=== PATIENT | female | born 2000 | race Caucasian/White ===

== ENCOUNTER 2023-02-12 23:39 | Emergency (ER) | payer BC, SELFPAY ==
[2023-02-12 23:42] VITALS: BP 150/100; PULSE 87; RESP 18; TEMP 36.4; O2SAT 100; BMI 25.8
[2023-02-12 23:44] VITALS: O2SAT 100
[2023-02-12 23:45] VITALS: BP 179/106; O2SAT 100
[2023-02-12 23:47] VITALS: BP 161/124; PULSE 82; RESP 16; O2SAT 100
[2023-02-12 23:50] VITALS: PULSE 73; RESP 24; O2SAT 100
[2023-02-13] VITALS (16 sets, daily range): BP systolic 127–138; BP diastolic 70–89; PULSE 60–85; RESP 10–26; O2SAT 100
--- NOTE | 2023-02-13 00:10 | ECG_ITS ---
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
--- NOTE | 2023-02-13 00:10 | CT_ITS ---
[address] [address] Patient Name: JAMES STEEL MRN: [id number] date: 2000 Sex: F Assigned Patient Location: ER Current Patient Location: ER Accession/Order Number: [id number] Exam Date: 02/13/2023 00:30 Report Date: 02/13/2023 01:47 At the request of: SHANTELL MARKER Procedure: CT angio chest EXAMINATION:CT angio chest INDICATION:CP COMPARISON:06/01/2020 TECHNIQUE:Thin section transaxial slices were acquired through the chest with intravenous contrast per PE protocol. Coronal and sagittal reconstructed images were reviewed. FINDINGS: PULMONARY ARTERIES: There is excellent opacification of the pulmonary vasculature. No suspicious pulmonary arterial filling defects are identified to suggest pulmonary embolus. LUNGS: Lungs are clear. PLEURAL CAVITY: No pleural effusion. MEDIASTINUM: Trachea and central airways are patent. HEART: The heart is unremarkable.There is no evidence of right heart strain. VASCULAR:There is no aneurysm or dissection of the thoracic aorta. LYMPH NODES:No suspicious lymphadenopathy. CHEST WALL/AXILLA: Chest wall and axilla are unremarkable. BONES: Osseous structures are unremarkable. VISUALIZED UPPER ABDOMEN: Upper abdominal structures are unremarkable. CT/CT angio chest IMPRESSION: 1. No evidence of pulmonary embolus. Electronically authenticated by: TAVIA TRIVEDI Date: 02/13/2023 01:47
--- NOTE | 2023-02-13 00:11 | PC.NURSE ---
pt presents to ED because pt states for the last couple months has been having chest pressure and palpitations. over the last 2 weeks symptoms have gotten worse and worse when she is laying down. pt states she was here a couple weeks ago and had testing done. saw dr. gonzales and had holter monitor done but lost results. was told to f/u with [facility] but hasn't been able to get in.
[2023-02-13] MEDS: KETOROLAC TROMETHAMINE 30 MG/ML VIAL IVP (00:25)
[2023-02-13] MEDS: 0.9 % SODIUM CHLORIDE 1,000 ML 1000 ML IV (00:25)
[2023-02-13 00:42] LABS: Basophils Absolute Auto 0.1 10^3/uL (0.0-0.1); Basophils Percent Auto 0.8 % (0.2-2.0); Eosinophils Absolute Auto 0.1 10^3/uL (0.0-0.7); Hematocrit 38.7 % (36.0-48.0); Hemoglobin 13.2 g/dL (12.0-16.0); Immature Granulocytes Abs Auto 0.01 10^3/uL (0.00-0.03); Immature Granulocytes Pct Auto 0.1 % (0.0-0.5); Lymphocytes Absolute Auto 3.6 10^3/uL (1.2-3.8); Lymphocytes Percent Auto 41.5 % (20.5-60.0); Mean Corpuscular HGB Conc 34.1 g/dL (29.9-35.2); Mean Corpuscular Hemoglobin 30.4 pg (26.7-34.0); Mean Corpuscular Volume 89.2 fL (81.0-99.0); Mean Platelet Volume 11.2 fL (9.5-13.5); Monocytes Absolute Auto 0.6 10^3/uL (0.3-0.8); Monocytes Percent Auto 7.1 % (1.7-12.0); Neutrophils Absolute Auto 4.3 10^3/uL (1.4-6.5); Neutrophils Percent Auto 49.5 % (43.0-75.0); Platelet Count 317 10^3/uL (150-450); Red Blood Count 4.34 10^6/uL (4.20-5.40); Red Cell Distribution Width 12.5 % (11.0-15.0); White Blood Count 8.7 10^3/uL (4.0-11.0)
[2023-02-13 00:48] LABS: Erythrocyte Sedimentation Rate 7 mm/hr (<=20)
[2023-02-13 00:57] LABS: HCG Qualitative NEGATIVE (NEGATIVE)
[2023-02-13 01:00] LABS: D Dimer 0.21 mg/L FEU (<=0.59)
[2023-02-13 01:09] LABS: Alanine Aminotransferase 14 U/L (14-59); Albumin Globulin Ratio 1.2; Albumin Level 4.3 g/dL (3.4-5.0); Alkaline Phosphatase 66 U/L (46-116); Anion Gap 14.7; Aspartate Amino Transferase 14 U/L (15-37); BUN Creatinine Ratio 10.2; Bilirubin Total 0.4 mg/dL (0.2-1.0); Carbon Dioxide 25.9 mmol/L (21.0-32.0); Chloride 104 mmol/L (98-107); Estimated GFR (African America >60 (>=60); Estimated GFR (Non-African Ame >60 (>=60); Globulin 3.6 g/dL; Glucose 81 mg/dL (74-106); Potassium 3.6 mmol/L (3.5-5.1); Sodium 141 mmol/L (136-145); Thyroid Stimulating Hormone 5.742 uIU/mL (0.358-3.740); Total Protein 7.9 g/dL (6.4-8.2); Troponin I High Sensitivity 7.1 pg/mL (4.0-51.3)
[2023-02-13 01:10] LABS: C Reactive Protein <1.0 mg/dL (<=1.0)
--- NOTE | 2023-02-13 02:43 | ED.CHESTPAI1 ---
HPI - Chest Pain General Chief Complaint: Chest Pain Stated Complaint: CHEST PAIN Time Seen by Provider: 02/12/23 23:53 Source: patient Mode of arrival: walk-in Limitations: no limitations History of Present Illness HPI narrative: This 22-year-old female presents for evaluation of midsternal chest pain. This patient was seen and evaluated by myself in November when she presented for chest pain and was having episodes of positional tachycardia. The patient states at that time she followed up with Dr. Tsang and he prescribed her medication for her hypothyroidism and they discussed her cardiac issues. She states that he told her that he was going to refer her to cardiology but despite her calling the cardiology office several times and trying to reach them and having her mother call as well she has not been able to procure an appointment with cardiology. At the time I saw her in November she was having episodes where her pulse would be normal while lying and then become tachycardic with standing. This appears to have improved. 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 She now is having episodes of chest pain at night with radiation into her left arm and cannot sleep because she is afraid she will not wake up. She states that her grandfather had an episode when her mother was only 3 when he went to bed and . She does not know the cardiac issue that he suffered from. The patient does not smoke. She is not on control. She denies any abdominal pain or back pain. She has not had a fever. She did not fill the prescription for the Synthroid that was prescribed to her by Dr. Tsang after speaking to a nurse who told her that she may be able to treat her hypothyroidism with a holistic approach. Related Data Home Medications Medication Instructions Recorded Confirmed No Known Home Medications 02/12/23 02/12/23 Allergies Allergy/AdvReac Type Severity Reaction Status Date / Time No Known Drug Allergies Allergy Verified 02/12/23 23:49 Review of Systems ROS Status of ROS 10 or more systems reviewed and unremarkable except as noted in history and below [facility] PFS Social History Smoking status: Never smoker Exam Narrative Exam Narrative: Nurses note and vital signs reviewed and patient is not hypoxic. General: The patient appears well and in no apparent distress, She appears mildly anxious but less anxious when I saw her in November Skin: Warm, dry, no pallor noted. There is no rash noted. Head: Normocephalic, atraumatic Eye: Normal conjunctiva, no drainage, EOMI. PERRL Ears, Nose, Mouth, and Throat: oral mucosa is moist. Neck: supple, no appreciable thyromegaly Cardiovascular: Regular Rate and Rhythm SiS2, no murmur, rubs or gallops, pulses are brisk and equal bilaterally Respiratory: Patient is in no distress, no accessory muscle use, lungs are clear to auscultation, no wheezing, rales or rhonchi Back: non-tender, no CVA tenderness bilaterally to percussion. GI: Normal bowel sounds, no tenderness to palpation, no masses appreciated. No rebound, guarding, or rigidity noted. Musculoskeletal: The patient has no evidence of calf tenderness, no pitting edema, symmetrical pulses noted bilaterally Neurological: A&O x4, normal speech Psychiatric: Cooperative, tearful at time, appears frustrated Constitutional Vital Signs, click to edit/add: Last Vital Signs Temp 97.6 F 02/12/23 23:42 Pulse 62 02/13/23 02:04 Resp 20 02/13/23 02:04 BP 127/70 02/13/23 02:04 Pulse Ox 100 02/13/23 00:20 O2 Del Method Room Air 02/12/23 23:42 Course Vital Signs Vital signs: Vital Signs Temperature 97.6 F 02/12/23 23:42 Pulse Rate 87 02/12/23 23:42 Respiratory Rate 18 02/12/23 23:42 Blood Pressure 150/100 H 02/12/23 23:42 Pulse Oximetry 100 02/12/23 23:42 Oxygen Delivery Method Room Air 02/12/23 23:42 Temperature 97.6 F 02/12/23 23:42 Pulse Rate 62 02/13/23 02:04 Respiratory Rate 20 02/13/23 02:04 Blood Pressure 127/70 02/13/23 02:04 Pulse Oximetry 100 02/13/23 00:20 Oxygen Delivery Method Room Air 02/12/23 23:42 MDM - Chest Pain MDM Narrative Medical decision making narrative: This 22-year-old female presents for evaluation of midsternal chest pain, is nonradiating. She is not short of breath dizzy or diaphoretic. She does not have a history of coronary artery disease. She does not smoke and she is not on control. The patient was seen by myself several months ago and was having episodes of tachycardia that was positional. The patient stated that she had had a hand pattern marker in place and was supposed to have an echocardiogram but never got the results of the Holter monitor. She also never was referred for the ultrasound. She was referred to her family physician after she had a negative cardiac workup. It was noted at that time that she had an elevated thyroid-stimulating hormone. She did follow up with her family physician but did not fill the prescription for the Synthroid that had been prescribed for her. She has since started a new job and has been doing well at her new job but at night when she tries to lay down and starts having chest pain and what sounds like issues with sleeping and possibly anxiety. She states she has tried to contact cardiology for an appointment but could not get a hold of them. She states her mother has even called them and the phone rings and rings and nobody ever picks it up. She did have postural tachycardia when she was here in the past. Today was a sinus rhythm with a sinus arrhythmia at 77 bpm and an RSR in lead V1 and V2 consistent with right ventricular conduction delay according to the EKG. Patient was not noted to be tachycardic today. I did have her stand up and she did not have any episodes of tachycardia. Orthostatic vital signs are normal. An IV was placed and she was medicated with IV fluids and Toradol. Cardiac workup including troponin and d-dimer was ordered and is reviewed. She has a normal CBC with differential. Her test was negative. She has normal electrolytes. She has a normal troponin and normal d-dimer. Her thyroid-stimulating hormone is again noted to be elevated although this time it is lower than it was in November. Inflammatory markers were also normal. In light of her ongoing chest pain which is not explained by any laboratory analysis I ordered a CT of her chest to rule out any structural abnormality or other findings that may be contributing to her pain. The CTA of her chest was negative for any acute findings. The results of all of her labs including the elevated thyroid-stimulating hormone and CT of the chest were discussed with the patient. I assured her that she is not dying. I did place a call to the cardiology office and asked them to call her for an outpatient appointment. I did explain this to her. She verbalizes understanding. She feels comfortable going home and was discharged home in stable condition. She has an appointment with her PCP on Thursday. I encouraged her to keep this appointment and discuss her hypothyroidism as well as ongoing cardiac issues. She did reveal to me that she is afraid to go to sleep at night because her maternal grandfather in his sleep when her mother was only 3 years old and she is concerned that she has a similar cardiac abnormality. Lab Data Attestation: I reviewed the patient's lab results. (TSH is elevated, remainder of labs are normal including troponin and d dimer) Labs: Lab Results 02/12/23 Range/Units 23:55 WBC 8.7 (4.0-11.0) 10^3/uL RBC 4.34 (4.20-5.40) 10^6/uL Hgb 13.2 (12.0-16.0) g/dL Hct 38.7 (36.0-48.0) % MCV 89.2 (81.0-99.0) fL MCH 30.4 (26.7-34.0) pg MCHC 34.1 (29.9-35.2) g/dL RDW 12.5 (11.0-15.0) % Plt Count 317 (150-450) 10^3/uL MPV 11.2 (9.5-13.5) fL Neut % (Auto) 49.5 (43.0-75.0) % Lymph % (Auto) 41.5 (20.5-60.0) % Craig % (Auto) 7.1 (1.7-12.0) % Eos % (Auto) 1.0 (0.9-7.0) % Baso % (Auto) 0.8 (0.2-2.0) % Neut # (Auto) 4.3 (1.4-6.5) 10^3/uL Lymph # (Auto) 3.6 (1.2-3.8) 10^3/uL Craig # (Auto) 0.6 (0.3-0.8) 10^3/uL Eos # (Auto) 0.1 (0.0-0.7) 10^3/uL Baso # (Auto) 0.1 (0.0-0.1) 10^3/uL Abs Immat Gran (auto) 0.01 (0.00-0.03) 10^3/uL Imm/Tot Granulo (auto) 0.1 (0.0-0.5) % ESR 7 (<=20) mm/hr D-Dimer 0.21 (<=0.59) mg/L FEU Sodium 141 (136-145) mmol/L Potassium 3.6 (3.5-5.1) mmol/L Chloride 104 (98-107) mmol/L Carbon Dioxide 25.9 (21.0-32.0) mmol/L Anion Gap 14.7 BUN 10.0 (7.0-18.0) mg/dL Creatinine 0.98 (0.55-1.02) mg/dL Est GFR ( Amer) >60 (>=60) Est GFR (Non-Af Amer) >60 (>=60) BUN/Creatinine Ratio 10.2 Glucose 81 (74-106) mg/dL Calcium 9.0 (8.5-10.1) mg/dL Total Bilirubin 0.4 (0.2-1.0) mg/dL AST 14 L (15-37) U/L ALT 14 (14-59) U/L Alkaline Phosphatase 66 (46-116) U/L Troponin I High Sens 7.1 (4.0-51.3) pg/mL C-Reactive Protein <1.0 (<=1.0) mg/dL Total Protein 7.9 (6.4-8.2) g/dL Albumin 4.3 (3.4-5.0) g/dL Globulin 3.6 g/dL Albumin/Globulin Ratio 1.2 TSH 5.742 H (0.358-3.740) uIU/mL Serum HCG, Qual Negative (NEGATIVE) ECG Data Attestation: I personally reviewed and interpreted this ECG as follows: (Sinus rhythm at 77 beats for minute, normal axis, RSR in lead V1 and V2, no acute ST segment elevation or T-wave inversion) Discharge Plan Discharge Chief Complaint: Chest Pain Clinical Impression: Hypothyroidism, Atypical chest pain Patient Disposition: Home, Self-Care Time of Disposition Decision: 02:34 Condition: Good Prescriptions / Home Meds: No Action No Known Home Medications Instructions: Hypothyroidism (ED), Noncardiac Chest Pain (ED) Stand Alone Forms: Portal Instructions Referrals: Fady Tsang MD [Primary Care Provider] - 1 week Discharge Date/Time: 02/13/23 02:57
== END 2023-02-13 02:57 | disposition home or self-care (01) ==
PROVIDERS: Emergency Provider Emergency Medicine; PCP Family Medicine
DX: R07.89 Other chest pain (principal); E03.9 Hypothyroidism, unspecified; Z79.899 Other long term (current) drug therapy
CPT/HCPCS: 36415; 71275; 80053; 84443; 84484; 84703; 85025; 85378; 85652; 86140; 93005; 96374; 99285; Q9967

== ENCOUNTER 2023-04-21 20:24 | Outpatient (REF) | payer BC, SELFPAY ==
[2023-04-27 14:08] LABS: Age Gdln ACOG Testing Note (.); IGP, rfx Aptima HPV ASCU Note (.)
== END 2023-04-21 20:25 | disposition home or self-care (01) ==
LOC: LAB 20:24
PROVIDERS: PCP Family Medicine; Visit Provider Obstetrics & Gynecology
DX: Z12.4 Encounter for screening for malignant neoplasm of cervix (principal)
CPT/HCPCS: G0145

== ENCOUNTER 2023-09-03 11:06 | Outpatient (OUT) | payer BC, SELFPAY ==
[2023-09-03 11:31] LABS: Basophils Absolute Auto 0.1 10^3/uL (0.0-0.1); Basophils Percent Auto 0.9 % (0.2-2.0); Eosinophils Percent Auto 0.4 % (0.9-7.0); Hematocrit 38.5 % (36.0-48.0); Hemoglobin 12.8 g/dL (12.0-16.0); Immature Granulocytes Abs Auto 0.01 10^3/uL (0.00-0.03); Immature Granulocytes Pct Auto 0.2 % (0.0-0.5); Lymphocytes Absolute Auto 0.7 10^3/uL (1.2-3.8); Lymphocytes Percent Auto 13.5 % (20.5-60.0); Mean Corpuscular HGB Conc 33.2 g/dL (29.9-35.2); Mean Corpuscular Volume 90.4 fL (81.0-99.0); Mean Platelet Volume 10.7 fL (9.5-13.5); Monocytes Absolute Auto 0.7 10^3/uL (0.3-0.8); Monocytes Percent Auto 12.7 % (1.7-12.0); Neutrophils Absolute Auto 3.8 10^3/uL (1.4-6.5); Neutrophils Percent Auto 72.3 % (43.0-75.0); Platelet Count 253 10^3/uL (150-450); Red Blood Count 4.26 10^6/uL (4.20-5.40); Red Cell Distribution Width 11.9 % (11.0-15.0); White Blood Count 5.3 10^3/uL (4.0-11.0)
[2023-09-03 12:41] LABS: Alanine Aminotransferase 19 U/L (14-59); Albumin Level 3.9 g/dL (3.4-5.0); Alkaline Phosphatase 64 U/L (46-116); Anion Gap 13.2; Aspartate Amino Transferase 15 U/L (15-37); BUN Creatinine Ratio 9.6; Bilirubin Total 0.4 mg/dL (0.2-1.0); Calcium 8.8 mg/dL (8.5-10.1); Carbon Dioxide 28.3 mmol/L (21.0-32.0); Chloride 103 mmol/L (98-107); Estimated GFR (African America >60 (>=60); Estimated GFR (Non-African Ame >60 (>=60); Free T3 2.63 pg/mL (2.18-3.98); Globulin 3.8 g/dL; Glucose 80 mg/dL (74-106); Potassium 3.5 mmol/L (3.5-5.1); Sodium 141 mmol/L (136-145); Thyroid Stimulating Hormone 1.563 uIU/mL (0.358-3.740); Total Protein 7.7 g/dL (6.4-8.2)
[2023-09-03 14:12] LABS: Estimated Average Glucose 91 mg/dL; Glycohemoglobin A1C 4.8 % (4.5-6.2)
[2023-09-03 17:16] LABS: Mono Screen NEGATIVE (NEGATIVE)
== END 2023-09-03 11:07 | disposition home or self-care (01) ==
LOC: LAB 11:09
PROVIDERS: PCP Family Medicine; Visit Provider Family Medicine
DX: R07.9 Chest pain, unspecified (principal); R53.83 Other fatigue; R73.09 Other abnormal glucose; D64.9 Anemia, unspecified; E55.9 Vitamin D deficiency, unspecified
CPT/HCPCS: 36415; 80053; 82306; 83036; 83540; 84436; 84443; 84481; 85025; 86308

== ENCOUNTER 2023-09-16 07:54 | Outpatient (OUT) | payer BC, SELFPAY ==
--- OUTSIDE RECORDS SUMMARY | 2023-09-16 07:57 | XMS_ITS | CCD ---
Author Name Unknown Address [address] [place] [address] [id number] [place] [address] Organization [facility] Care Team Providers Care Mottle Lay Up Operator Name Role Phone MARKER ., DR STINSON Admitting Unavailable MARKER ., DR STINSON Attending Unavailable MARKER ., DR STINSON Consulting Unavailable HOY ., DR LEE Primary Care Unavailable HOY ., DR LEE Attending Unavailable HOY ., DR LEE Consulting Unavailable HOY ., DR LEE Primary Care Unavailable HOY ., DR LEE Admitting Unavailable HOY ., DR LEE Primary Care Unavailable PAY ., DR TOLBERT Admitting Unavailable PAY ., DR TOLBERT Attending Unavailable PAY ., DR TOLBERT Consulting Unavailable HOY ., DR LEE Primary Care Unavailable JAYANT, DR BRAIN Starks Admitting Unavailable JAYANT, DR BRAIN Starks Attending Unavailable JAYANT, DR BRAIN Starks Consulting Unavailable JEFFREY BEGUM Consulting Unavailable Problems Active Problems Problem Classification Problem Date Documented Da te Episodic/Chronic Cardiac dysrhythmias (4 sources) Palpitations; Translations: [PALPITATIONS] Onset: 12-04-2022 Episodic Deficiency and other anemia (1 source) Anemia, unspecified; Translations: [ANEMIA UNSPECIFIED] Onset: 09-22-2022 Episodic Diabetes mellitus without complication (1 source) Other abnormal glucose; Translations: [OTHER ABNORMAL GLUCOSE] Onset: 09-22-2022 Episodic Mood disorders (1 source) Major depressive disorder, single episode, unspecified; Translations: [RAMONITA DEPRESS D/O SINGLE EPIS UNS] Onset: 05-26-2022 Chronic Nonspecific chest pain (4 sources) Chest pain, unspecified; Translations: [CHEST PAIN UNSPECIFIED] Onset: 09-18-2022 Episodic Other upper respiratory infections (1 source) Chronic sinusitis, unspecified; Translations: [CHRONIC SINUSITIS UNSPECIFIED] Onset: 05-26-2022 Chronic Past or Other Problems Problem Classification Problem Date Documented Da te Episodic/Chronic Abdominal pain (1 source) Left upper quadrant pain; Translations: [LEFT UPPER QUADRANT PAIN] Onset: 07-08-2022 Episodic Nausea and vomiting (4 sources) Nausea; Translations: [Nausea with vomiting, unspecified] Onset: 07-05-2022 Episodic Other nutritional; endocrine; and metabolic disorders (1 source) Abnormal weight loss; Translations: [ABNORMAL WEIGHT LOSS] Onset: 07-08-2022 Episodic Other upper respiratory disease (3 sources) Unspecified disorder of nose and nasal sinuses; Translations: [UNS DISORDER NOSE AND NASAL SINUSES] Onset: 05-23-2022 Episodic Results Test Name Value Interpretation Reference Range Facility CARDIAC BRAIN ADMITon 023 CK [Catalytic activity/Vol] 102 U/L Normal 26-192 [facility] Comment on above: Performed By: #### C BC #### [facility] [address] [place] [address] Dr. Michelle Cali CK.MB [Mass/Vol] 0.74 ng/mL Normal <=3.60 [facility] Comment on above: Performed By: #### C BC #### [facility] [address] [address] [address] Michelle Cali HSTROP 7.7 pg/mL Normal 4.0-51.[address] [facility] Comment on above: Result Comment: CUT- OFF POINTS HAVE BEEN ESTABLISHED BASED ON THE FOURTH UNIVERSAL DEFINITIONS OF MYOCARDIAL INFARCTION. THE UPPER REFERENCE LIMIT (URL) OF TROPONIN, DEFINED THE 99TH PERCENTILE OF cTnI DISTRIBUTION IN A REFERENCE POPULATION, HAS BEEN CONFIRMED THE DECISION THRESHOLD FOR NE DIAGNOSIS. Performed By: #### C BC #### [facility] [address] [address] [address] Michelle Cali SHAHNAZ 24 ng/mL Normal 9-[address] [facility] Comment on above: Performed By: #### C BC #### [facility] [address] [address] [address] Michelle Cali CBC AUTO DIFFon 12-04-2022 BASO # 0.1 103/ul Normal 0.0-0.1 [facility] Comment on above: Performed By: #### C BC #### [facility] [address] [address] [address] Michelle Cali Basophils/100 WBC (Bld) 0.9 % Normal 0.2-2.0 [facility] Comment on above: Performed By: #### C BC #### [facility] [address] [place] [address] Dr. Michelle Cali EO # 0.1 103/ul Normal 0.0-0.[address] [facility] Comment on above: Performed By: #### C BC #### [facility] [address] [place] [address] Dr. Michelle Cali Eosinophils/100 WBC (Bld) 0.6 % Critically low 0.9-7.0 [facility] Comment on above: Performed By: #### C BC #### [facility] [address] [place] [address] Dr. Michelle Cali Erythrocyte distribution width (RBC) [Ratio] 12.3 % Normal 11.0-15.0 [facility] Comment on above: Performed By: #### C BC #### [facility] [address] [place] [address] Dr. Michelle Cali Hematocrit (Bld) [Volume fraction] 40.3 % Normal 36.0-48.0 [facility] Comment on above: Performed By: #### C BC #### [facility] [address] [place] [address] Dr. Michelle Cali Hemoglobin (Bld) [Mass/Vol] 13.2 g/dL Normal 12.0-16.0 [facility] Comment on above: Performed By: #### C BC #### [facility] [address] [place] [address] Dr. Michelle Cali IG # 0.03 10e3/ul Normal 0.00-0.[address] [facility] Comment on above: Performed By: #### C BC #### [facility] [address] [place] [address] Dr. Michelle Cali IG % 0.3 % Normal 0.0-0.[address] [facility] Comment on above: Performed By: #### C BC #### [facility] [address] [place] [address] Dr. Michelle Cali LYMPH # 4.1 103/ul Critically high 1.2-3.8 The [facility] Comment on above: Performed By: #### C BC #### [facility] [address] [place] [address] Dr. Michelle Cali Lymphocytes/100 WBC (Bld) 39.9 % Normal 20.5-60.0 [facility] Comment on above: Performed By: #### C BC #### [facility] [address] [place] [address] Dr. Michelle Cali MANUAL DIFF REQ NO Normal The [facility] Comment on above: Performed By: #### C BC #### [facility] [address] [place] [address] Dr. Michelle Cali MCH (RBC) [Entitic mass] 29.8 pg Normal 26.7-34.0 [facility] Comment on above: Performed By: #### C BC #### [facility] [address] [place] [address] Dr. Michelle Cali MCHC (RBC) [Mass/Vol] 32.8 g/dL Normal 29.9-35.[address] [facility] Comment on above: Performed By: #### C BC #### [facility] [address] [place] [address] Dr. Michelle Cali MCV (RBC) [Entitic vol] 91.0 fL Normal 81.0-99.0 [facility] Comment on above: Performed By: #### C BC #### [facility] [address] [place] [address] Dr. Michelle Cali MONO # 0.5 103/ul Normal 0.3-0.[address] [facility] Comment on above: Performed By: #### C BC #### [facility] [address] [place] [address] Dr. Michelle Cali Monocytes/100 WBC (Bld) 5.2 % Normal 1.7-12.0 [facility] Comment on above: Performed By: #### C BC #### [facility] [address] [place] [address] Dr. Michelle Cali NEUT # 5.4 103/ul Normal 1.4-6.5 [facility] Comment on above: Performed By: #### C BC #### [facility] [address] [place] [address] Dr. Michelle Cali Neutrophils/100 WBC (Bld) 53.1 % Normal 43.0-75.0 [facility] Comment on above: Performed By: #### C BC #### [facility] [address] [place] [address] Dr. Michelle Cali Platelet mean volume (Bld) [Entitic vol] 10.6 fL Normal 9.5-13.5 [facility] Comment on above: Performed By: #### C BC #### [facility] [address] [place] [address] Dr. Michelle Cali PLT 310 103/ul Normal 150-[address] [facility] Comment on above: Performed By: #### C BC #### [facility] [address] [place] [address] Dr. Michelle Cali RBC 4.43 106/ul Normal 4.20-5.[address] [facility] Comment on above: Performed By: #### C BC #### [facility] [address] [place] [address] Dr. Michelle Cali WBC 10.2 103/ul Normal 4.0-11.[address] [facility] Comment on above: Performed By: #### C BC #### [facility] [address] [place] [address] Dr. Michelle Cali D-DIMERon 12-04-2022 D-DIMER 0.19 mg/L FEU Normal <=0.59 [facility] Comment on above: Performed By: #### C BC #### [facility] [address] [place] [address] Dr. Michelle Cali D-DIMER COMMENTS SEE BELOW Normal [facility] Comment on above: Result Comment: Incr eases in D-Dimer concentration observed with thromboembolic events can be variable due to localization, size, and age of the thrombus. Therefore, a thromboembolic event cannot be diagnosed with certainty on the basis of the reference range. D-Dimers may also be elevated for a variety of disorders including: advanced age, , coronary disease, cancer, liver disease, infection, inflammation, hematoma, DIC, trauma, post-surgery, diabetes, thrombolytic or anticoagulant therapy, stress, and generalized hospitalization. Performed By: #### C BC #### [facility] [address] [place] [address] Dr. Michelle Cali ER URINE PROFILEon 3 Bilirubin Ql (U) Negative Normal NEGATIVE [facility] Comment on above: Performed By: #### P REGU, ERUR #### [facility] [address] [place] [address] Dr. Michelle Cali Clarity (U) CLEAR Normal CLEAR [facility] Comment on above: Performed By: #### P REGU, ERUR #### [facility] [address] [place] [address] Dr. Michelle Cali Color (U) YELLOW Normal YELLOW [facility] Comment on above: Performed By: #### P REGU, ERUR #### [facility] [address] [place] [address] Dr. Michelle Cali ERUAHD A micrscopic examination will be performed if indicated. Normal The [facility] Comment on above: Performed By: #### P REGU, ERUR #### [facility] [address] [place] [address] Dr. Michelle Cali Glucose Ql (U) Negative Normal NEGATIVE [facility] Comment on above: Performed By: #### P REGU, ERUR #### [facility] [address] [place] [address] Dr. Michelle Cali Hemoglobin Ql (U) Negative Normal NEGATIVE [facility] Comment on above: Performed By: #### P REGU, ERUR #### [facility] [address] [place] [address] Dr. Michelle Cali Ketones Ql (U) Negative Normal NEGATIVE [facility] Comment on above: Performed By: #### P REGU, ERUR #### [facility] [address] [place] [address] Dr. Michelle Cali LEUKOCYTES Negative Normal NEGATIVE [facility] Comment on above: Performed By: #### P REGU, ERUR #### [facility] [address] [address] [address] Michelle Cali Nitrite Ql (U) Negative Normal NEGATIVE [facility] Comment on above: Performed By: #### P REGU, ERUR #### [facility] [address] [address] [address] Michelle Cali pH (U) 6.0 [pH] Normal 5-9 [facility] Comment on above: Performed By: #### P REGU, ERUR #### [facility] [address] [address] [address] Michelle Cali SPEC GRAVITY >=1.030 Abnormal 1.005-<=1.025 [facility] Comment on above: Performed By: #### P REGU, ERUR #### [facility] [address] [place] [address] Dr. Michelle Cali UA PROTEIN TRACE Normal NEGATIVE/ TRACE [facility] Comment on above: Performed By: #### P REGU, ERUR #### [facility] [address] [address] [address] Michelle Cali UR MICRO IND NOT INDICATED Normal The [facility] Comment on above: Performed By: #### P REGU, ERUR #### [facility] [address] [place] [address] Dr. Michelle Cali Urobilinogen Qn (U) 0.2 {Kalyan'U}/dL Normal 0.2 - 1. 0 [facility] Comment on above: Performed By: #### P REGU, ERUR #### [facility] [address] [address] [address] Michelle Cali URon 12-04-2022 , QUAL Negative Normal NEGATIVE The [facility] Comment on above: Performed By: #### P REGU, ERUR #### [facility] [address] [place] [address] Dr. Michelle Cali PROF 14(COMP METB)on 023 Albumin [Mass/Vol] 3.9 g/dL Normal 3.4-5.0 [facility] Comment on above: Performed By: #### C BC #### [facility] [address] [address] [address] Michelle Cali Albumin/Globulin [Mass ratio] 1.0 {ratio} Normal [facility] Comment on above: Performed By: #### C BC #### [facility] [address] [address] [address] Michelle Cali ALP [Catalytic activity/Vol] 69 U/L Normal 46-116 [facility] Comment on above: Performed By: #### C BC #### [facility] [address] [address] [address] Michelle Cali ALT [Catalytic activity/Vol] 13 U/L Critically low 14-59 [facility] Comment on above: Performed By: #### C BC #### [facility] [address] [address] [address] Michelle Cali Anion gap [Moles/Vol] 13.6 mmol/L Normal [facility] Comment on above: Performed By: #### C BC #### [facility] [address] [address] [address] Michelle Cali AST [Catalytic activity/Vol] 11 U/L Critically low 15-37 [facility] Comment on above: Performed By: #### C BC #### [facility] [address] [address] [address] Michelle Cali Bilirubin [Mass/Vol] 0.3 mg/dL Normal 0.2-1.0 [facility] Comment on above: Performed By: #### C BC #### [facility] [address] [address] [address] Michelle Cali Calcium [Mass/Vol] 9.0 mg/dL Normal 8.5-10.1 [facility] Comment on above: Performed By: #### C BC #### [facility] [address] [address] [address] Michelle Cali Chloride [Moles/Vol] 105 mmol/L Normal 98-107 [facility] Comment on above: Performed By: #### C BC #### [facility] [address] [address] [address] Michelle Cali CO2 [Moles/Vol] 26.8 mmol/L Normal 21.0-32.0 [facility] Comment on above: Performed By: #### C BC #### [facility] [address] [address] [address] Michelle Cali Creatinine [Mass/Vol] 0.82 mg/dL Normal 0.55-1.[address] [facility] Comment on above: Performed By: #### C BC #### [facility] [address] [address] [address] Michelle Cali EGFR-AF JAMAICAN >60 Normal >=60 [facility] Comment on above: Performed By: #### C BC #### [facility] [address] [place] [address] Dr. Michelle Cali EGFR-NON AF JAMAICAN >60 Normal >=[address] [facility] Comment on above: Performed By: #### C BC #### [facility] [address] [address] [address] Michelle Cali Globulin (S) [Mass/Vol] 3.8 g/dL Normal [facility] Comment on above: Performed By: #### C BC #### [facility] [address] [address] [address] Michelle Cali Glucose [Mass/Vol] 104 mg/dL Normal 74-106 [facility] Comment on above: Performed By: #### C BC #### [facility] [address] [place] [address] Dr. Michelle Cali Potassium [Moles/Vol] 3.4 mmol/L Critically low 3.5-5.[address] [facility] Comment on above: Performed By: #### C BC #### [facility] [address] [place] [address] Dr. Michelle Cali Protein [Mass/Vol] 7.7 g/dL Normal 6.4-8.2 [facility] Comment on above: Performed By: #### C BC #### [facility] [address] [place] [address] Dr. Michelle Cali Sodium [Moles/Vol] 142 mmol/L Normal 136-145 [facility] Comment on above: Performed By: #### C BC #### [facility] [address] [place] [address] Dr. Michelle Cali Urea nitrogen [Mass/Vol] 9.0 mg/dL Normal 7.0-18.0 [facility] Comment on above: Performed By: #### C BC #### [facility] [address] [place] [address] Dr. Michelle Cali Urea nitrogen/Creatinine [Mass ratio] 11.0 mg/mg Normal [facility] Comment on above: Performed By: #### C BC #### [facility] [address] [place] [address] Dr. Michelle Cali TSHon 12-04-2022 TSH 6.358 uIU/mL Critically high 0.358-3.740 [facility] Comment on above: Performed By: #### C BC #### [facility] [address] [place] [address] Dr. Michelle Cali INSULINon 09-19-2022 Insulin 6.8 uIU/mL Normal 2.6-24.9 [facility] Comment on above: Performed By: #### C BC #### [facility] [address] [place] [address] Dr. Michelle Cali CBC AUTO DIFFon 09-18-2022 BASO # 0.1 103/ul Normal 0.0-0.1 [facility] Comment on above: Performed By: #### C BC #### [facility] [address] [place] [address] Dr. Michelle Cali Basophils/100 WBC (Bld) 0.8 % Normal 0.2-2.[address] [facility] Comment on above: Performed By: #### C BC #### [facility] [address] [place] [address] Dr. Michelle Cali EO # 0.1 103/ul Normal 0.0-0.7 [facility] Comment on above: Performed By: #### C BC #### [facility] [address] [place] [address] Dr. Michelle Cali Eosinophils/100 WBC (Bld) 0.8 % Critically low 0.9-7.0 [facility] Comment on above: Performed By: #### C BC #### [facility] [address] [place] [address] Dr. Michelle Cali Erythrocyte distribution width (RBC) [Ratio] 12.4 % Normal 11.0-15.0 [facility] Comment on above: Performed By: #### C BC #### [facility] [address] [place] [address] Dr. Michelle Cali Hematocrit (Bld) [Volume fraction] 41.6 % Normal 36.0-48.0 [facility] Comment on above: Performed By: #### C BC #### [facility] [address] [place] [address] Dr. Michelle Cali Hemoglobin (Bld) [Mass/Vol] 14.3 g/dL Normal 12.0-16.0 [facility] Comment on above: Performed By: #### C BC #### [facility] [address] [place] [address] Dr. Michelle Cali IG # 0.03 10e3/ul Normal 0.00-0.03 [facility] Comment on above: Performed By: #### C BC #### [facility] [address] [place] [address] Dr. Michelle Cali IG % 0.3 % Normal 0.0-0.5 [facility] Comment on above: Performed By: #### C BC #### [facility] [address] [place] [address] Dr. Michelle Cali LYMPH # 3.1 103/ul Normal 1.2-3.[address] [facility] Comment on above: Performed By: #### C BC #### [facility] [address] [place] [address] Dr. Michelle Cali Lymphocytes/100 WBC (Bld) 32.8 % Normal 20.5-60.0 [facility] Comment on above: Performed By: #### C BC #### [facility] [address] [place] [address] Dr. Michelle Cali MANUAL DIFF REQ NO Normal The [facility] Comment on above: Performed By: #### C BC #### [facility] [address] [place] [address] Dr. Michelle Cali MCH (RBC) [Entitic mass] 29.5 pg Normal 26.7-34.0 [facility] Comment on above: Performed By: #### C BC #### [facility] [address] [place] [address] Dr. Michelle Cali MCHC (RBC) [Mass/Vol] 34.4 g/dL Normal 29.9-35.2 [facility] Comment on above: Performed By: #### C BC #### [facility] [address] [place] [address] Dr. Michelle Cali MCV (RBC) [Entitic vol] 86.0 fL Normal 81.0-99.0 [facility] Comment on above: Performed By: #### C BC #### [facility] [address] [place] [address] Dr. Michelle Cali MONO # 0.5 103/ul Normal 0.3-0.8 [facility] Comment on above: Performed By: #### C BC #### [facility] [address] [place] [address] Dr. Michelle Cali Monocytes/100 WBC (Bld) 5.6 % Normal 1.7-12.0 [facility] Comment on above: Performed By: #### C BC #### [facility] [address] [place] [address] Dr. Michelle Cali NEUT # 5.7 103/ul Normal 1.4-6.[address] [facility] Comment on above: Performed By: #### C BC #### [facility] [address] [place] [address] Dr. Michelle Cali Neutrophils/100 WBC (Bld) 59.7 % Normal 43.0-75.0 [facility] Comment on above: Performed By: #### C BC #### [facility] [address] [place] [address] Dr. Michelle Cali Platelet mean volume (Bld) [Entitic vol] 10.3 fL Normal 9.5-13.5 [facility] Comment on above: Performed By: #### C BC #### [facility] [address] [place] [address] Dr. Michelle Cali PLT 319 103/ul Normal 150-450 [facility] Comment on above: Performed By: #### C BC #### [facility] [address] [place] [address] Dr. Michelle Cali RBC 4.84 106/ul Normal 4.20-5.40 [facility] Comment on above: Performed By: #### C BC #### [facility] [address] [place] [address] Dr. Michelle Cali WBC 9.5 103/ul Normal 4.0-11.0 [facility] Comment on above: Performed By: #### C BC #### [facility] [address] [place] [address] Dr. Michelle Cali FREE THYROXINE INDEX T7on FTI 2.36 Normal 1.30-4.50 [facility] Comment on above: Performed By: #### T SH, CMP, T7, LIPID #### [facility] [address] [place] [address] Dr. Michelle Cali T3U 31.0 % Normal 30.0-39.0 [facility] Comment on above: Performed By: #### T SH, CMP, T7, LIPID #### [facility] [address] [place] [address] Dr. Michelle Cali T4 [Mass/Vol] 7.60 ug/dL Normal 4.80-13.90 [facility] Comment on above: Performed By: #### T SH, CMP, T7, LIPID #### [facility] [address] [place] [address] Dr. Michelle Cali GLYCOHEMOGLOBIN A1Con 2022 ADA RECOMMENDATION SEE BELOW Normal [facility] Comment on above: Result Comment: ADA RECOMMENDED LIMIT 4.0 - 6.0 ADA THERAPEUTIC TARGET < 7.0 ACTION SUGGESTED > 7.0 Performed By: #### C BC #### [facility] [address] [address] [address] Michelle Cali Glucose [Mass/Vol] 105 mg/dL Normal [facility] Comment on above: Performed By: #### C BC #### [facility] [address] [place] [address] Dr. Michelle Cali HbA1c (Bld) [Mass fraction] 5.3 % Normal 4.5-6.2 [facility] Comment on above: Performed By: #### C BC #### [facility] [address] [place] [address] Dr. Michelle Cali IRONon 09-18-2022 Iron [Mass/Vol] 80.0 ug/dL Normal 50.0-170.0 [facility] Comment on above: Performed By: #### I ABIGAIL #### [facility] [address] [place] [address] Dr. Michelle Cali LIPID PROFILEon 09-18-2022 CHOL-HDL RATIO NORM SEE BELOW Normal [facility] Comment on above: Result Comment: 3.3 - 4.4 LOW RISK 4.4 - 7.1 AVERAGE RISK 7.1 - 11.0 MODERATE RISK >11.0 HIGH RISK Performed By: #### T SH, CMP, T7, LIPID #### [facility] [address] [place] [address] Dr. Michelle Cali Cholesterol [Mass/Vol] 175 mg/dL Normal <=200 [facility] Comment on above: Performed By: #### T SH, CMP, T7, LIPID #### [facility] [address] [place] [address] Dr. Michelle Cali Cholesterol in HDL [Mass/Vol] 72 mg/dL Critically high 40-60 [facility] Comment on above: Performed By: #### T SH, CMP, T7, LIPID #### [facility] [address] [place] [address] Dr. Michelle Cali Cholesterol in LDL [Mass/Vol] 85.8 mg/dL Normal [facility] Comment on above: Performed By: #### T SH, CMP, T7, LIPID #### [facility] [address] [place] [address] Dr. Michelle Cali Cholesterol.total/Cho lesterol in HDL [Mass ratio] 2.4 {ratio} Normal [facility] Comment on above: Performed By: #### T SH, CMP, T7, LIPID #### [facility] [address] [address] [address] Michelle Cali HDL NORMAL > or = 60 mg/dl - LOW CARDIOVASCULAR RISK <40 mg/dl - HIGH CARDIOVASCULAR RISK Normal [facility] Comment on above: Performed By: #### T SH, CMP, T7, LIPID #### [facility] [address] [address] [address] Michelle Cali LDL CALC NORMAL SEE BELOW Normal [facility] Comment on above: Result Comment: <100 mg/dl OPTIMAL 100 - 129 mg/dl NEAR OR ABOVE OPTIMAL 130 - 159 mg/dl BORDERLINE HIGH 160 - 189 mg/dl HIGH >190 mg/dl VERY HIGH Performed By: #### T SH, CMP, T7, LIPID #### [facility] [address] [address] [address] Michelle Cali Triglyceride [Mass/Vol] 86 mg/dL Normal <=150 [facility] Comment on above: Performed By: #### T SH, CMP, T7, LIPID #### [facility] [address] [address] [address] Michelle Cali VLDL CALC 17.2 mg/dL Normal [facility] Comment on above: Performed By: #### T SH, CMP, T7, LIPID #### [facility] [address] [place] [address] Dr. Michelle Cali PROF 14(COMP METB)on 023 Albumin [Mass/Vol] 4.3 g/dL Normal 3.4-5.0 [facility] Comment on above: Performed By: #### T SH, CMP, T7, LIPID #### [facility] [address] [place] [address] Dr. Michelle Cali Albumin/Globulin [Mass ratio] 1.0 {ratio} Normal [facility] Comment on above: Performed By: #### T SH, CMP, T7, LIPID #### [facility] [address] [address] [address] Michelle Cali ALP [Catalytic activity/Vol] 65 U/L Normal 46-116 [facility] Comment on above: Performed By: #### T SH, CMP, T7, LIPID #### [facility] [address] [address] [address] Michelle Cali ALT [Catalytic activity/Vol] 17 U/L Normal 14-59 [facility] Comment on above: Performed By: #### T SH, CMP, T7, LIPID #### [facility] [address] [address] [address] Michelle Cali Anion gap [Moles/Vol] 12.2 mmol/L Normal [facility] Comment on above: Performed By: #### T SH, CMP, T7, LIPID #### [facility] [address] [address] [address] Michelle Cali AST [Catalytic activity/Vol] 15 U/L Normal 15-37 [facility] Comment on above: Performed By: #### T SH, CMP, T7, LIPID #### [facility] [address] [address] [address] Michelle Cali Bilirubin [Mass/Vol] 0.4 mg/dL Normal 0.2-1.0 [facility] Comment on above: Performed By: #### T SH, CMP, T7, LIPID #### [facility] [address] [place] [address] Dr. Michelle Cali Calcium [Mass/Vol] 9.4 mg/dL Normal 8.5-10.1 [facility] Comment on above: Performed By: #### T SH, CMP, T7, LIPID #### [facility] [address] [address] [address] Michelle Cali Chloride [Moles/Vol] 104 mmol/L Normal 98-107 [facility] Comment on above: Performed By: #### T SH, CMP, T7, LIPID #### [facility] [address] [address] [address] Michelle Cali CO2 [Moles/Vol] 27.7 mmol/L Normal 21.0-32.0 [facility] Comment on above: Performed By: #### T SH, CMP, T7, LIPID #### [facility] [address] [address] [address] Michelle Cali Creatinine [Mass/Vol] 0.63 mg/dL Normal 0.55-1.02 [facility] Comment on above: Performed By: #### T SH, CMP, T7, LIPID #### [facility] [address] [address] [address] Michelle Cali EGFR-AF JAMAICAN >60 Normal >=60 [facility] Comment on above: Performed By: #### T SH, CMP, T7, LIPID #### [facility] [address] [place] [address] Dr. Michelle Cali EGFR-NON AF JAMAICAN >60 Normal >=60 [facility] Comment on above: Performed By: #### T SH, CMP, T7, LIPID #### [facility] [address] [place] [address] Dr. Michelle Cali Globulin (S) [Mass/Vol] 4.2 g/dL Normal [facility] Comment on above: Performed By: #### T SH, CMP, T7, LIPID #### [facility] [address] [place] [address] Dr. Michelle Cali Glucose [Mass/Vol] 83 mg/dL Normal 74-106 [facility] Comment on above: Performed By: #### T SH, CMP, T7, LIPID #### [facility] [address] [address] [address] Michelle Cali Potassium [Moles/Vol] 3.9 mmol/L Normal 3.5-5.1 [facility] Comment on above: Performed By: #### T SH, CMP, T7, LIPID #### [facility] [address] [place] [address] Dr. Michelle Cali Protein [Mass/Vol] 8.5 g/dL Critically high 6.4-8.2 [facility] Comment on above: Performed By: #### T SH, CMP, T7, LIPID #### [facility] [address] [place] [address] Dr. Michelle Cali Sodium [Moles/Vol] 140 mmol/L Normal 136-145 [facility] Comment on above: Performed By: #### T SH, CMP, T7, LIPID #### [facility] [address] [place], [place] [address] Dr. Michelle Cali Urea nitrogen [Mass/Vol] 9.0 mg/dL Normal 7.0-18.0 [facility] Comment on above: Performed By: #### T SH, CMP, T7, LIPID #### [facility] [address] [address] [address] Michelle Cali Urea nitrogen/Creatinine [Mass ratio] 14.3 mg/mg Normal [facility] Comment on above: Performed By: #### T SH, CMP, T7, LIPID #### [facility] [address] [address] [address] Michelle Cali TSHon 09-18-2022 TSH 1.245 uIU/mL Normal 0.358-3.740 [facility] Comment on above: Performed By: #### T SH, CMP, T7, LIPID #### [facility] [address] [address] [address] ABD/PELV W CONon 07-06-20 CT ABD/PELV W CON EXAM: CT ABDOMEN PELVIS WITH IV CONTRAST CLINICAL INDICATION: GENERALIZED ABDOMINAL PAIN COMPARISON: 08/07/2019, 08/08/2019 TECHNIQUE: Axial CT images were obtained through the abdomen and pelvis with IV contrast. Coronal and sagittal reformats were obtained. Dose reduction techniques were achieved by using automated exposure control and/or adjustment of mA and/or kV according to patient size and/or use of iterative reconstruction technique. FINDINGS: Lower thorax: Unremarkable. Liver: Small focus of low-attenuation in the anterior liver along the fissure for ligamentum teres, most consistent with focal fat. Otherwise unremarkable liver. Biliary: The gallbladder is unremarkable. No abnormal biliary dilatation seen. Mild periportal edema can can be from fluid resuscitation status. Spleen: Unremarkable. Pancreas: Unremarkable. Adrenals: Unremarkable. Kidneys and bladder: Unremarkable. GI Tract: No evidence of obstruction. The appendix appears within normal limits. Lymph Nodes: No lymphadenopathy. Mesentery/peritoneum : No free fluid or free air. Retroperitoneum: No mass or fluid collection. Vasculature: No visible abdominal aortic or iliac artery aneurysm. Pelvis: No mass visible. Uterus appears present and grossly unremarkable, however not well assessed by CT. Follicular changes of the ovaries. Trace free pelvic fluid suggested, likely physiologic. Bones/Soft Tissues: No acute osseous abnormality. No significant soft tissue abnormality visualized. IMPRESSION: 1. No evidence of an acute obstructive or inflammatory process in the abdomen or pelvis. 2. Likely physiologic changes in the pelvis. Electronically authenticated by: JEFFREY BEGUM Date: 2022-07-06 01:26 Normal [facility] CBC AUTO DIFFon 07-05-2022 BASO # 0.1 103/ul Normal 0.0-0.[address] [facility] Comment on above: Performed By: #### C BC #### [facility] [address] [place] [address] Dr. Michelle Cali Basophils/100 WBC (Bld) 0.9 % Normal 0.2-2.0 [facility] Comment on above: Performed By: #### C BC #### [facility] [address] [place] [address] Dr. Michelle Cali EO # 0.1 103/ul Normal 0.0-0.7 [facility] Comment on above: Performed By: #### C BC #### [facility] [address] [place] [address] Dr. Michelle Cali Eosinophils/100 WBC (Bld) 1.0 % Normal 0.9-7.0 [facility] Comment on above: Performed By: #### C BC #### [facility] [address] [place] [address] Dr. Michelle Cali Erythrocyte distribution width (RBC) [Ratio] 12.5 % Normal 11.0-15.0 [facility] Comment on above: Performed By: #### C BC #### [facility] [address] [place] [address] Dr. Michelle Cali Hematocrit (Bld) [Volume fraction] 39.6 % Normal 36.0-48.0 [facility] Comment on above: Performed By: #### C BC #### [facility] [address] [place] [address] Dr. Michelle Cali Hemoglobin (Bld) [Mass/Vol] 13.6 g/dL Normal 12.0-16.0 [facility] Comment on above: Performed By: #### C BC #### [facility] [address] [place] [address] Dr. Michelle Cali IG # 0.02 10e3/ul Normal 0.00-0.03 [facility] Comment on above: Performed By: #### C BC #### [facility] [address] [place] [address] Dr. Michelle Cali IG % 0.2 % Normal 0.0-0.5 [facility] Comment on above: Performed By: #### C BC #### [facility] [address] [place] [address] Dr. Michelle Cali LYMPH # 4.0 103/ul Critically high 1.2-3.8 The [facility] Comment on above: Performed By: #### C BC #### [facility] [address] [place] [address] Dr. Michelle Cali Lymphocytes/100 WBC (Bld) 44.0 % Normal 20.5-60.0 [facility] Comment on above: Performed By: #### C BC #### [facility] [address] [place] [address] Dr. Michelle Cali MANUAL DIFF REQ NO Normal The [facility] Comment on above: Performed By: #### C BC #### [facility] [address] [place] [address] Dr. Michelle Cali MCH (RBC) [Entitic mass] 29.7 pg Normal 26.7-34.[address] [facility] Comment on above: Performed By: #### C BC #### [facility] [address] [place] [address] Dr. Michelle Cali MCHC (RBC) [Mass/Vol] 34.3 g/dL Normal 29.9-35.2 [facility] Comment on above: Performed By: #### C BC #### [facility] [address] [place] [address] Dr. Michelle Cali MCV (RBC) [Entitic vol] 86.5 fL Normal 81.0-99.0 [facility] Comment on above: Performed By: #### C BC #### [facility] [address] [place] [address] Dr. Michelle Cali MONO # 0.6 103/ul Normal 0.3-0.8 [facility] Comment on above: Performed By: #### C BC #### [facility] [address] [place] [address] Dr. Michelle Cali Monocytes/100 WBC (Bld) 6.7 % Normal 1.7-12.0 [facility] Comment on above: Performed By: #### C BC #### [facility] [address] [place] [address] Dr. Michelle Cali NEUT # 4.2 103/ul Normal 1.4-6.5 [facility] Comment on above: Performed By: #### C BC #### [facility] [address] [place] [address] Dr. Michelle Cali Neutrophils/100 WBC (Bld) 47.2 % Normal 43.0-75.0 [facility] Comment on above: Performed By: #### C BC #### [facility] [address] [place] [address] Dr. Michelle Cali Platelet mean volume (Bld) [Entitic vol] 11.4 fL Normal 9.5-13.[address] [facility] Comment on above: Performed By: #### C BC #### [facility] [address] [place] [address] Dr. Michelle Cali PLT 342 103/ul Normal 150-[address] [facility] Comment on above: Performed By: #### C BC #### [facility] [address] [place] [address] Dr. Michelle Cali RBC 4.58 106/ul Normal 4.20-5.[address] [facility] Comment on above: Performed By: #### C BC #### [facility] [address] [place] [address] Dr. Michelle Cali WBC 9.0 103/ul Normal 4.0-11.[address] [facility] Comment on above: Performed By: #### C BC #### [facility] [address] [address] [address] Michelle Cali PREG HCG QUALon 07-05-2022 , QUAL Negative Normal NEGATIVE [facility] Comment on above: Performed By: #### P REG #### [facility] [address] [place] [address] Dr. Michelle Cali PROF 14(COMP METB)on 022 Albumin [Mass/Vol] 4.4 g/dL Normal 3.4-5.0 [facility] Comment on above: Performed By: #### C BC #### [facility] [address] [place] [address] Dr. Michelle Cali Albumin/Globulin [Mass ratio] 1.1 {ratio} Normal [facility] Comment on above: Performed By: #### C BC #### [facility] [address] [place] [address] Dr. Michelle Cali ALP [Catalytic activity/Vol] 82 U/L Normal 46-116 [facility] Comment on above: Performed By: #### C BC #### [facility] [address] [place] [address] Dr. Michelle Cali ALT [Catalytic activity/Vol] 22 U/L Normal 14-59 [facility] Comment on above: Performed By: #### C BC #### [facility] [address] [place] [address] Dr. Michelle Cali Anion gap [Moles/Vol] 9.3 mmol/L Normal [facility] Comment on above: Performed By: #### C BC #### [facility] [address] [place] [address] Dr. Michelle Cali AST [Catalytic activity/Vol] 17 U/L Normal 15-37 [facility] Comment on above: Performed By: #### C BC #### [facility] [address] [place] [address] Dr. Michelle Cali Bilirubin [Mass/Vol] 0.5 mg/dL Normal 0.2-1.0 [facility] Comment on above: Performed By: #### C BC #### [facility] [address] [place] [address] Dr. Michelle Cali Calcium [Mass/Vol] 9.1 mg/dL Normal 8.5-10.1 [facility] Comment on above: Performed By: #### C BC #### [facility] [address] [place] [address] Dr. Michelle Cali Chloride [Moles/Vol] 104 mmol/L Normal 98-[address] [facility] Comment on above: Performed By: #### C BC #### [facility] [address] [place] [address] Dr. Michelle Cali CO2 [Moles/Vol] 26.8 mmol/L Normal 21.0-32.0 [facility] Comment on above: Performed By: #### C BC #### [facility] [address] [place] [address] Dr. Michelle Cali Creatinine [Mass/Vol] 0.73 mg/dL Normal 0.55-1.02 [facility] Comment on above: Performed By: #### C BC #### [facility] [address] [place] [address] Dr. Michelle Cali EGFR-AF JAMAICAN >60 Normal >=60 [facility] Comment on above: Performed By: #### C BC #### [facility] [address] [place] [address] Dr. Michelle Cali EGFR-NON AF JAMAICAN >60 Normal >=[address] [facility] Comment on above: Performed By: #### C BC #### [facility] [address] [place] [address] Dr. Michelle Cali Globulin (S) [Mass/Vol] 4.1 g/dL Normal [facility] Comment on above: Performed By: #### C BC #### [facility] [address] [place] [address] Dr. Michelle Cali Glucose [Mass/Vol] 84 mg/dL Normal 74-106 [facility] Comment on above: Performed By: #### C BC #### [facility] [address] [place] [address] Dr. Michelle Cali Potassium [Moles/Vol] 3.1 mmol/L Critically low 3.5-5.1 [facility] Comment on above: Performed By: #### C BC #### [facility] [address] [address] [address] Michelle Cali Protein [Mass/Vol] 8.5 g/dL Critically high 6.4-8.2 [facility] Comment on above: Performed By: #### C BC #### [facility] [address] [address] [address] Michelle Cali Sodium [Moles/Vol] 137 mmol/L Normal 136-145 [facility] Comment on above: Performed By: #### C BC #### [facility] [address] [place] [address] Dr. Michelle Cali Urea nitrogen [Mass/Vol] 13.0 mg/dL Normal 7.0-18.0 [facility] Comment on above: Performed By: #### C BC #### [facility] [address] [place] [address] Dr. Michelle Cali Urea nitrogen/Creatinine [Mass ratio] 17.8 mg/mg Normal [facility] Comment on above: Performed By: #### C BC #### [facility] [address] [place] [address] Dr. Michelle Cali HCG,Urineon 02-07-2021 Beta HCG ( test) Ql (U) Negative Normal [facility] Comment on above: Result Comment: PERF ORMED BY: [place] [address] PATHOLOGIST ORTHOPEDIC NURSE WENDY TRUONG M.D. Performed By: #### U HCG #### [place] [address] [place] 02-07-2021 L Specimen: [id number] Received: 02/07/21 Status: YANNA Monkkassandra Num: [id number] Spec Type: Surgical Subm Dr: Ranjit Coe MD Tissues: A Breast Reduction - Mammoplasty (RIGHT BREAST TISSUE) B Breast Reduction - Mammoplasty (LEFT BREAST TISSUE) Procedures: HE Stain/8, Gross/Micro L4/2 Patient Age/Sex Location Account Attending Physician Latha Cuevas / [place] [id number] Ranjit Coe MD SPEC NUM: [id number] RECD: 02/07/21 STATUS: YANNA MONKKassandra NUM: [id number] YOUNG: 02/07/21- SUBM DR: Ranjit Coe MD ENTERED: 02/07/[address]: SPEC TYPE: Surgical DEPT: S ENTERED BY: [id number] RECV BY: [id number] ORDERED: HE Stain/8, Gross/Micro L4/2 ORDERED: HE Stain/8, Gross/Micro L4/2 Pathological Diagnosis A. Right breast, excision: - Benign skin and breast parenchyma (weight: 610 g) showing mild acute and chronic inflammation B. Left breast, excision: - Benign skin and breast parenchyma (weight: 379 g) showing focal mild chronic inflammation Clinical Information Macromastia Gross Description A. Received in formalin labeled with the patient's name, number and right breast tissue is a 610 g, 22 x 20 x 4 cm aggregate of lozada, wrinkled skin and underlying yellow lobulated adipose tissue. No obvious skin lesions are grossly identified. Sectioning reveals approximately 95% yellow lobulated adipose tissue and 5% lozada-white thin fibrous tissue. No obvious masses or lesions are grossly identified. It [employer] sections are submitted in four cassettes labeled A1-A4. (ALMA/JS) B. Received in formalin labeled with the patient's name, number and left breast tissue is a 379 g aggregate of lozada, smooth to wrinkled skin with underlying yellow lobulated adipose tissue (20 x 15 x 4.5 cm in aggregate). Sectioning reveals approximately 95% yellow lobulated adipose tissue and 5% lozada-white thin fibrous tissue. No obvious masses or lesions Specimen: [id number] Received: 02/07/21 Status: YANNA Beard Num: [id number] Spec Type: Surgical Subm Dr: Ranjit Coe MD Tissues: A Breast Reduction - Mammoplasty (RIGHT BREAST TISSUE) B Breast Reduction - Mammoplasty (LEFT BREAST TISSUE) Procedures: HE Stain/8, Gross/Micro L4/2 Patient: Latha Cuevas [id number] (Continued) Specimen: [id number] Received: 02/07/21 (Continued) Gross Description (Continued) Signed (signature on file) Wendy Truong MD 02/08/21 1713 Specimen: [id number] Received: 02/07/21 Status: YESENIADelia Beard Num: [id number] Spec Type: Surgical Subm Dr: Ranjit Coe MD Tissues: A Breast Reduction - Mammoplasty (RIGHT BREAST TISSUE) B Breast Reduction - Mammoplasty (LEFT BREAST TISSUE) Procedures: [place] L4/2 Patient: Latha Cuevas [id number] (Continued) Specimen: [id number] Received: 02/07/21 (Continued) Gross Description (Continued) are grossly identified. It [employer] sections are submitted in four cassettes labeled B1- B4. (ALMA/DUYEN) Microscopic Description A. Four glass slides with H E stained material have been examined. The microscopic findings support the above pathologic diagnosis. B. Four glass slides with H E stained material have been examined. The microscopic findings support the above pathologic diagnosis. [id number] Specimen: [id number] Received: 02/07/21 Status: YANNA Beard Num: [id number] Spec Type: Surgical Subm Dr: Ranjit Coe MD Tissues: A Breast Reduction - Mammoplasty (RIGHT BREAST TISSUE) B Breast Reduction - Mammoplasty (LEFT BREAST TISSUE) Procedures: HE Stain/8, Gross/Micro L4/2 Patient: Latha Cuevas [id number] (Continued) (more content not included)... 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 This test has not been FDA cleared or approved. This test has been authorized by FDA under an Emergency Use Authorization (EUA). This test has been validated in accordance with the FDA's Guidance Document (Policy for Diagnostics Testing in Laboratories Certified to Perform High Complexity Testing under CLIA prior to Emergency Use Authorization for Coronavirus Disease-2019 during the Public Health Emergency) issued on October 20, 2019. This test is only authorized for the duration of time the declaration that circumstances exist justifying the authorization of the emergency use of in vitro diagnostic tests for detection of SARS-CoV-2 virus and/or diagnosis of COVID-19 infection under section 564(b)(1) of the Act, 21 U.S.C. 360bbb-3(b)(1), unless the authorization is terminated or revoked sooner. PERFORMED BY: [place] [address] PATHOLOGIST ORTHOPEDIC NURSE WENDY TRUONG M.D. Performed By: #### C OVID 19 [facility] #### [address] Encounters Encounter Date Encounter Type Care Provider Facility Start: 12-04-2022 End: 12-04-[address] SHANTELL SIMON . Facility:[facility] Start: 09-18-2022 End: 09-19-[address] JESUS ALMONTE . Facility:[facility] Start: 07-05-2022 End: 07-06-[address] JESUS ALMONTE . Facility:[facility] Start: 05-23-2022 End: 05-23-[address] JESUS ALMONTE . Facility:[facility] Payers Date Payer Category Payer Unknown [id number] 2001 Unknown [id number] 2001 Unknown [id number] 2001 Unknown [id number] 1958 Self-pay 1958 Unknown [id number] Summary Purpose Family History No Family History Records FoundNo Family History Records Found Advance Directives No Advanced Directives Records FoundNo Advanced Directives Records Found Additional Source Comments INFORMATION SOURCE (unrecogn ized section and content) DATE CREATED AUTHOR 08/11/2021 [facility] DATE CREATED AUTHOR AUTHOR'S ORGANIZ ATION 12/09/2022 [facility] FOR RECORDS PERTAINING TO PATIENTS WHO ARE OR HAVE BEEN ENROLLED IN A CHEMICAL DEPENDENCY/SUBSTANCEABUSE PROGRAM, SOME INFORMATION MAY BE OMITTED. This clinical summary was aggregated from multiple sources. Caution should be exercised in using it in the provision of clinical care. This summary normalizes information from multiple sources, and as a consequence, information in this document may materially change the coding, format and clinical context of patient data. In addition, data may be omitted in some cases. CLINICAL DECISIONS SHOULD BE BASED ON THE PRIMARY CLINICAL RECORDS. [facility] [employer] provides no warranty or guarantee of the accuracy or completeness of information in this document.
--- NOTE | 2023-09-16 08:00 | CA_ITS ---
Patient Name: JAMES STEEL MR#: [id number] : 2000 Exam Date: 09/16/2023 Ordering Doctor: DR Fady Tsang . ECHOCARDIOGRAM REPORT PROCEDURE: CA ECHO DOPPLER COMPLETE INDICATIONS: Chest pain, Guillain Tarkio syndrome COMPARISON: None. DESCRIPTION: COMPLETE ECHOCARDIOGRAM Real-time transthoracic echocardiography with 2D, M-mode, spectral and color flow Doppler performed. QUALITY: Technical quality was good. 64 , 150#, BSA 1.73 m2 LEFT VENTRICLE: Normal chamber size. Normal left ventricular wall thickness. LV EF: Global left ventricular systolic function is normal; visually estimated ejection fraction is 55 to 60%. No wall motion abnormalities. DIASTOLIC: Normal diastolic function. ATRIAL SEPTUM: Visually appears intact. LEFT ATRIUM: Normal chamber size. RIGHT ATRIUM: Normal chamber size. RIGHT VENTRICLE: Normal chamber size. Normal right ventricular systolic function. TRICUSPID VALVE: Normal mobility and thickness. No stenosis with trivial regurgitation. No evidence of pulmonary hypertension. RVSP 25 mmHg MITRAL VALVE: Normal mobility and thickness. No evidence of mitral valve stenosis. There is no mitral annular calcification. No mitral regurgitation. AORTIC VALVE: Normal trileaflet appearance. No visible sclerosis. Normal leaflet mobility. No evidence of aortic valve stenosis. No aortic regurgitation. AORTIC ROOT: Normal diameter and appearance. PULMONIC VALVE: Normal thickness and mobility. No stenosis. No regurgitation. PERICARDIUM: No evidence of pericardial effusion. IVC: Appears normal in size; collapses with inspiration CONCLUSION: Essentially normal echocardiogram with 2D and Doppler imaging Adult Echocardiography Procedure Report Left Ventricle LVEDD (3.7 - 5.6 cm): 4.73 cm LVESD (2.2 - 4.0 cm): 3.24 cm LVIVS thickness (0.6 - 1.2 cm): 0.89 cm LVPW thickness (0.5 - 1.0 cm): 0.88 cm E - e': 4.52 LVOT Max Gradient: 5.15 mm[Hg] LVOT Area (cm2): 1.13 m/s Peak Velocity (LVOT): 1.13 m/s Mean Velocity (LVOT): 0.81 m/s LVOT Diameter 2.29 cm Left Atrium LA Volume Index (2D A2C): 26.26 ml/m2 Left Atrium Systolic Dimension: 3.36 cm Mitral Valve MV E to A Ratio: 1.63, 1.60 Right Ventricle Aorta AO Root Diam: 3.22 cm Ascending Ao Diam: 2.84 cm Aortic Valve AoV Area (Peak [place]): 3.11 cm2, 3.11 cm2 AoV Area (VTI): 3.18 cm2, 3.18 cm2 Peak Velocity(Antegrade Flow): 1.50 m/s, 1.42 m/s Peak Gradient(Antegrade Flow): 9.04 mm[Hg], 8.02 mm[Hg] Mean Velocity(Antegrade Flow): 1.02 m/s, 0.95 m/s Mean Gradient(Antegrade Flow): 4.80 mm[Hg], 4.19 mm[Hg] Velocity Time Integral: 30.26 cm, 28.31 cm Tricuspid Valve Peak Velocity (Regurgitant Flow): 2.36 m/s Pulmonic Valve Mean Gradient: 3.04 mm[Hg] Mean Velocity: 0.83 m/s Peak Velocity: 1.07 m/s, 1.01 m/s Peak Gradient: 4.11 mm[Hg], 4.60 mm[Hg] Right Atrium Right Atrium Systolic Pressure: 37.00 ml, 37.00 ml Dictated by: Jennifer Solis M.D. on 09/16/2023 at 15:51 Approved by: Jennifer Solis M.D. on 09/16/2023 at 15:54
== END 2023-09-16 07:55 | disposition home or self-care (01) ==
LOC: CARD 07:54
PROVIDERS: PCP Family Medicine; Visit Provider Family Medicine
DX: R07.9 Chest pain, unspecified (principal)
CPT/HCPCS: 93306

== ENCOUNTER 2023-10-20 12:16 | Emergency (ER) | payer SELFPAY ==
[2023-10-20 12:18] VITALS: BP 135/97; PULSE 76; TEMP 36.7; O2SAT 97; BMI 22.3
--- NOTE | 2023-10-20 12:36 | ECG_ITS ---
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
--- NOTE | 2023-10-20 12:37 | ED.SYNCOPE1 ---
HPI - Syncope General Chief Complaint: Altered Mental Status Stated Complaint: ALTERED MENTAL STATUS Time Seen by Provider: 10/20/23 12:28 Source: medical record and other Source comment: ems Mode of arrival: ambulance Limitations: altered mental status Limitations comment: syncopal episode -- h/o POTS History of Present Illness HPI narrative: 23-year-old female presents for syncopal episode. 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 She states she frequently passes out but is usually at home at nighttime. She did not injure herself in any fashion and has no pain she feels somewhat better. She had a normal day including breakfast up until this point. This occurred just before coming into the emergency department. Related Data Home Medications ?Medication ?Instructions ?Recorded ?Confirmed No Known Home Medications 02/12/23 02/12/23 Allergies Allergy/AdvReac Type Severity Reaction Status Date / Time No Known Drug Allergies Allergy Verified 10/20/23 12:18 Review of Systems ROS Narrative A ten point review of systems is negative except as noted above. PFSH PFSH Social History Smoking status: Never smoker Exam Narrative Exam Narrative: Nurses note and vital signs reviewed and patient is not hypoxic. General: The patient appears well and in no apparent distress. Patient is resting comfortably on cart. She is soft spoken. Skin: Warm, dry, no pallor noted. There is no rash noted. Head: Normocephalic, atraumatic Eye: Normal conjunctiva, no drainage Ears, Nose, Mouth, and Throat: oral mucosa is moist. Nares patent. Cardiovascular: Regular Rate and Rhythm Respiratory: Patient is in no distress, no accessory muscle use, lungs are clear to auscultation, no wheezing, rales or rhonchi Back: non-tender GI: Soft and nontender Musculoskeletal: The patient has no evidence of calf tenderness, no pitting edema, symmetrical pulses noted bilaterally Neurological: A&O, normal speech Psychiatric: Cooperative Constitutional Vital Signs, click to edit/add: Last Vital Signs Temp 98.1 F 10/20/23 12:18 Pulse 76 10/20/23 12:18 Resp 18 10/20/23 12:18 BP 135/97 H 10/20/23 12:18 Pulse Ox 97 10/20/23 12:18 O2 Del Method Room Air 10/20/23 12:18 Course Vital Signs Vital signs: Vital Signs Temperature 98.1 F 10/20/23 12:18 Pulse Rate 76 10/20/23 12:18 Respiratory Rate 18 10/20/23 12:18 Blood Pressure 135/97 H 10/20/23 12:18 Pulse Oximetry 97 10/20/23 12:18 Oxygen Delivery Method Room Air 10/20/23 12:18 Temperature 98.1 F 10/20/23 12:18 Pulse Rate 76 10/20/23 12:18 Respiratory Rate 18 10/20/23 12:18 Blood Pressure 135/97 H 10/20/23 12:18 Pulse Oximetry 97 10/20/23 12:18 Oxygen Delivery Method Room Air 10/20/23 12:18 MDM - Syncope MDM Narrative Medical decision making narrative: Her workup is negative. She has had this issue previously and has seen her physician for it. She had a workup that was negative previously and her workup today is negative as well. Treatment diagnosis and follow-up were discussed with the patient. Differential Diagnosis Differential diagnosis: Likely syncope due to orthostatic hypotension, dehydration and other (Anemia) Lab Data Attestation: I reviewed the patient's lab results. Labs: Lab Results 10/20/23 Range/Units 12:30 WBC 7.7 (4.0-11.0) 10^3/uL RBC 4.48 (4.20-5.40) 10^6/uL Hgb 13.4 (12.0-16.0) g/dL Hct 38.8 (36.0-48.0) % MCV 86.6 (81.0-99.0) fL MCH 29.9 (26.7-34.0) pg MCHC 34.5 (29.9-35.2) g/dL RDW 12.1 (11.0-15.0) % Plt Count 329 (150-450) 10^3/uL MPV 10.9 (9.5-13.5) fL Neut % (Auto) 53.8 (43.0-75.0) % Lymph % (Auto) 39.5 (20.5-60.0) % [place] % (Auto) 5.6 (1.7-12.0) % Eos % (Auto) 0.5 L (0.9-7.0) % Baso % (Auto) 0.5 (0.2-2.0) % Neut # (Auto) 4.1 (1.4-6.5) 10^3/uL Lymph # (Auto) 3.0 (1.2-3.8) 10^3/uL [place] # (Auto) 0.4 (0.3-0.8) 10^3/uL Eos # (Auto) 0.0 (0.0-0.7) 10^3/uL Baso # (Auto) 0.0 (0.0-0.1) 10^3/uL Abs Immat Gran (auto) 0.01 (0.00-0.03) 10^3/uL Imm/Tot Granulo (auto) 0.1 (0.0-0.5) % Sodium 140 (136-145) mmol/L Potassium 3.3 L (3.5-5.1) mmol/L Chloride 103 (98-107) mmol/L Carbon Dioxide 20.7 L (21.0-32.0) mmol/L Anion Gap 19.6 BUN 14.0 (7.0-18.0) mg/dL Creatinine 0.91 (0.55-1.02) mg/dL Est GFR ( Amer) >60 (>=60) Est GFR (Non-Af Amer) >60 (>=60) BUN/Creatinine Ratio 15.4 Glucose 88 (74-106) mg/dL Calcium 9.3 (8.5-10.1) mg/dL Serum HCG, Qual Negative (NEGATIVE) ECG Data Attestation: I personally reviewed and interpreted this ECG as follows: (EKG on my interpretation shows sinus rhythm without acute change and a rate of 69.) Discharge Plan Discharge Stand Alone Forms: Portal Instructions Chief Complaint: Altered Mental Status Clinical Impression: Syncope Patient Disposition: Home, Self-Care Time of Disposition Decision: 14:11 Condition: Good Mode of Transportation: Private Vehicle Prescriptions / Home Meds: No Action No Known Home Medications Print Language: Persian Instructions: Syncope (ED) Referrals: Fady Tsang MD [Primary Care Provider] - 1 week
[2023-10-20 12:48] LABS: Basophils Percent Auto 0.5 % (0.2-2.0); Eosinophils Percent Auto 0.5 % (0.9-7.0); Hematocrit 38.8 % (36.0-48.0); Hemoglobin 13.4 g/dL (12.0-16.0); Immature Granulocytes Abs Auto 0.01 10^3/uL (0.00-0.03); Immature Granulocytes Pct Auto 0.1 % (0.0-0.5); Lymphocytes Percent Auto 39.5 % (20.5-60.0); Mean Corpuscular HGB Conc 34.5 g/dL (29.9-35.2); Mean Corpuscular Hemoglobin 29.9 pg (26.7-34.0); Mean Corpuscular Volume 86.6 fL (81.0-99.0); Mean Platelet Volume 10.9 fL (9.5-13.5); Monocytes Absolute Auto 0.4 10^3/uL (0.3-0.8); Monocytes Percent Auto 5.6 % (1.7-12.0); Neutrophils Absolute Auto 4.1 10^3/uL (1.4-6.5); Neutrophils Percent Auto 53.8 % (43.0-75.0); Platelet Count 329 10^3/uL (150-450); Red Blood Count 4.48 10^6/uL (4.20-5.40); Red Cell Distribution Width 12.1 % (11.0-15.0); White Blood Count 7.7 10^3/uL (4.0-11.0)
[2023-10-20 12:56] LABS: Anion Gap 19.6; BUN Creatinine Ratio 15.4; Calcium 9.3 mg/dL (8.5-10.1); Carbon Dioxide 20.7 mmol/L (21.0-32.0); Chloride 103 mmol/L (98-107); Estimated GFR (African America >60 (>=60); Estimated GFR (Non-African Ame >60 (>=60); Glucose 88 mg/dL (74-106); Potassium 3.3 mmol/L (3.5-5.1); Sodium 140 mmol/L (136-145)
[2023-10-20 12:57] LABS: HCG Qualitative NEGATIVE (NEGATIVE)
[2023-10-20] MEDS: 0.9 % SODIUM CHLORIDE 1,000 ML 1000 ML IV (13:26)
== END 2023-10-20 14:50 | disposition home or self-care (01) ==
PROVIDERS: Emergency Provider Emergency Medicine; PCP Family Medicine
DX: R55 Syncope and collapse (principal)
CPT/HCPCS: 36415; 80048; 84703; 85025; 93005; 96360; 99284

== ENCOUNTER 2023-10-21 17:17 | Emergency (ER) | payer SELFPAY ==
[2023-10-21 17:21] VITALS: BP 156/99; PULSE 70; TEMP 36.9; O2SAT 100; BMI 24.2
--- NOTE | 2023-10-21 17:28 | CT_ITS ---
The [address] [address] Patient Name: JAMES STEEL MRN: [id number] date: 2000 Sex: F Assigned Patient Location: ER Current Patient Location: ER Accession/Order Number: [id number] Exam Date: 10/21/2023 17:42 Report Date: 10/21/2023 18:11 At the request of: REJI HORNE Procedure: CT head/brain wo con EXAM: CT head/brain wo con HISTORY: [place] COMPARISON: None. TECHNIQUE: CT head without contrast. Multiplanar reformats obtained. The current study utilizes one or more of the following dose-reduction techniques: automated exposure control, iterative reconstruction, and/or manual adjustment of tube current and voltage for size. FINDINGS: No acute intracranial hemorrhage. No midline shift. Amos-white matter differentiation is maintained. Ventricles normal for age. Basal cisterns patent. Partially imaged mastoid air cells are clear. Partially imaged paranasal sinuses are clear. No displaced skull fracture. CT/CT head/brain wo con IMPRESSION: No acute intracranial findings. Electronically authenticated by: TRISTIAN SMITH Date: 10/21/2023 18:11
--- NOTE | 2023-10-21 17:29 | ED.GENADUL1 ---
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 She had passed out at work yesterday but did not hit her head. She did not have a headache yesterday until 7 PM, after she got home from here. She had had a negative workup for the syncope. She has no personal history of seizure disorder and has not had a fever. She has no localized weakness Related Data Home Medications ?Medication ?Instructions ?Recorded ?Confirmed No Known Home Medications 02/12/23 02/12/23 Allergies Allergy/AdvReac Type Severity Reaction Status Date / Time No Known Drug Allergies Allergy Verified 10/20/23 12:18 Opioid HPI Opioid Management Most Recent Opioid Data: No Data to Display Review of Systems ROS Narrative A ten point review of systems is negative except as noted above. PFSH PFSH Social History Smoking status: Never smoker Exam Narrative Exam Narrative: Nurses note and vital signs reviewed and patient is not hypoxic. General: The patient appears well and in no apparent distress. Patient is resting comfortably on cart. Skin: Warm, dry, no pallor noted. There is no rash noted. Head: Normocephalic, atraumatic Eye: Normal conjunctiva, no drainage, EOMI. PERRL Ears, Nose, Mouth, and Throat: oral mucosa is moist. Nares patent. Cardiovascular: Regular Rate and Rhythm Respiratory: Patient is in no distress, no accessory muscle use, lungs are clear to auscultation, no wheezing, rales or rhonchi Back: non-tender GI: Soft and nontender Musculoskeletal: The patient has no evidence of calf tenderness, no pitting edema, symmetrical pulses noted bilaterally Neurological: A&O, normal speech; upper and lower extremity strength 5 out of 5 and symmetric Psychiatric: Cooperative Constitutional Vital Signs, click to edit/add: Last Vital Signs Temp 98.4 F 10/21/23 17:21 Pulse 70 10/21/23 17:21 Resp 16 10/21/23 17:21 BP 156/99 H 10/21/23 17:21 Pulse Ox 100 10/21/23 17:21 O2 Del Method Room Air 10/21/23 17:29 Course Vital Signs Vital signs: Vital Signs Temperature 98.4 F 10/21/23 17:21 Pulse Rate 70 10/21/23 17:21 Respiratory Rate 16 10/21/23 17:21 Blood Pressure 156/99 H 10/21/23 17:21 Pulse Oximetry 100 10/21/23 17:21 Oxygen Delivery Method Room Air 10/21/23 17:21 Temperature 98.4 F 10/21/23 17:21 Pulse Rate 70 10/21/23 17:21 Respiratory Rate 16 10/21/23 17:21 Blood Pressure 156/99 H 10/21/23 17:21 Pulse Oximetry 100 10/21/23 17:21 Oxygen Delivery Method Room Air 10/21/23 17:29 Medical Decision Making MDM Narrative Medical decision making narrative: CT brain negative per radiologist. Case discussed with Dr. Hardy and she is released home. Findings are discussed with the patient and her family. Differential Diagnosis Differential Diagnosis: Headache, intracranial hemorrhage Imaging Data CT scan - head: Radiologist's impression: ITS Impressions Head CT 10/21/23 17:28 IMPRESSION: No acute intracranial findings. Electronically authenticated by: TRISTIAN SMITH Date: 10/21/2023 18:11 Discharge Plan Discharge Stand Alone Forms: Portal Instructions Chief Complaint: Headache Clinical Impression: Headache Patient Disposition: Home, Self-Care Time of Disposition Decision: 18:21 Condition: Good Mode of Transportation: Private Vehicle Prescriptions / Home Meds: No Action No Known Home Medications Print Language: Luxembourgish Instructions: Acute Headache (ED) Referrals: Fady Tsang MD [Primary Care Provider] - 1 week
--- NOTE | 2023-10-21 17:29 | PC.NURSE ---
after fall yesterday, bilat pupils PERRLA, nose bleed resolved prior to coming into ER
--- OUTSIDE RECORDS SUMMARY | 2023-10-21 17:49 | XMS_ITS | CCD ---
Author Organization [facility] Care Team Providers Care Local Superintendent Name Role Phone MARKER ., DR STINSON [...] Unavailable JAYANT, DR BRAIN [employer] Unavailable KEL, JEFFREY Consult[employer] Unavailable Problems Active Problems Problem Classification [...] CK [Catalytic activity/Vol] 102 U/L Normal 26-192 [facility] Comment on above: Performed By: #### C BC #### [facility] [address] [place] [address] Dr. Michelle Cali CK.MB [Mass/Vol] 0.74 ng/mL Normal <=3.60 [facility] Comment on above: Performed By: #### C BC #### [facility] [address] [address] [address] Michelle Cali HSTROP 7.7 pg/mL Normal 4.0-51.3 [facility] Comment on above: Result Comment: CUT- OFF POINTS HAVE BEEN ESTABLISHED BASED ON THE FOURTH UNIVERSAL DEFINITIONS OF MYOCARDIAL INFARCTION. THE UPPER REFERENCE LIMIT (URL) OF TROPONIN, DEFINED THE 99TH PERCENTILE OF cTnI DISTRIBUTION IN A REFERENCE POPULATION, HAS BEEN CONFIRMED THE DECISION THRESHOLD FOR SD DIAGNOSIS. Performed By: #### C BC #### [facility] [address] [place] [address] Dr. Michelle Cali SHAHNAZ 24 ng/mL Normal 9-82 [facility] Comment on above: Performed By: #### C BC #### [facility] [address] [address] [address] Michelle Cali CBC AUTO DIFFon 12-04-2022 BASO # 0.1 103/ul Normal 0.0-0.1 [facility] Comment on above: Performed By: #### C BC #### [facility] [address] [address] [address] Michelle Cali Basophils/100 WBC (Bld) 0.9 % Normal 0.2-2.0 [facility] Comment on above: Performed By: #### C BC #### [facility] [address] [place] [address] Dr. Michelle Cali EO # 0.1 103/ul Normal 0.0-0.7 [facility] Comment on above: Performed By: #### C BC #### [facility] [address] [place] [address] Dr. Michelle Cali Eosinophils/100 WBC (Bld) 0.6 % Critically low 0.9-7.0 [facility] Comment on above: Performed By: #### C BC #### [facility] [address] [place] [address] Dr. Michelle Cali Erythrocyte distribution width (RBC) [Ratio] 12.3 % Normal 11.0-15.0 [facility] Comment on above: Performed By: #### C BC #### [facility] [address] [place] [address] Dr. Michelle Cali Hematocrit (Bld) [Volume fraction] 40.3 % Normal 36.0-48.0 [facility] Comment on above: Performed By: #### C BC #### [facility] [address] [place] [address] Dr. Michelle Cali Hemoglobin (Bld) [Mass/Vol] 13.2 g/dL Normal 12.0-16.0 [facility] Comment on above: Performed By: #### C BC #### [facility] [address] [place] [address] Dr. Michelle Cali IG # 0.03 10e3/ul Normal 0.00-0.03 [facility] Comment on above: Performed By: #### C BC #### [facility] [address] [place] [address] Dr. Michelle Cali IG % 0.3 % Normal 0.0-0.5 [facility] Comment on above: Performed By: #### C BC #### [facility] [address] [place] [address] Dr. Michelle Cali LYMPH # 4.1 103/ul Critically high 1.2-3.8 [facility] Comment on above: Performed By: #### C BC #### [facility] [address] [place] [address] Dr. Michelle Cali Lymphocytes/100 WBC (Bld) 39.9 % Normal 20.5-60.0 [facility] Comment on above: Performed By: #### C BC #### [facility] [address] [place] [address] Dr. Michelle Cali MANUAL DIFF REQ NO Normal [facility] Comment on above: Performed By: #### C BC #### [facility] [address] [place] [address] Dr. Michelle Cali MCH (RBC) [Entitic mass] 29.8 pg Normal 26.7-34.0 [facility] Comment on above: Performed By: #### C BC #### [facility] [address] [place] [address] Dr. Michelle Cali MCHC (RBC) [Mass/Vol] 32.8 g/dL Normal 29.9-35.2 [facility] Comment on above: Performed By: #### C BC #### [facility] [address] [place] [address] Dr. Michelle Cali MCV (RBC) [Entitic vol] 91.0 fL Normal 81.0-99.0 [facility] Comment on above: Performed By: #### C BC #### [facility] [address] [place] [address] Dr. Michelle Cali MONO # 0.5 103/ul Normal 0.3-0.8 [facility] Comment on above: Performed By: #### C BC #### [facility] [address] [place] [address] Dr. Michelle Cali Monocytes/100 WBC (Bld) 5.2 % Normal 1.7-12.0 [facility] Comment on above: Performed By: #### C BC #### [facility] [address] [place] [address] Dr. Michelle Cali NEUT # 5.4 103/ul Normal 1.4-6.5 [facility] Comment on above: Performed By: #### C BC #### [facility] [address] [place] [address] Dr. Michelle Cali Neutrophils/100 WBC (Bld) 53.1 % Normal 43.0-75.0 [facility] Comment on above: Performed By: #### C BC #### [facility] [address] [place] [address] Dr. Michelle Cali Platelet mean volume (Bld) [Entitic vol] 10.6 fL Normal 9.5-13.5 [facility] Comment on above: Performed By: #### C BC #### [facility] [address] [place] [address] Dr. Michelle Cali PLT 310 103/ul Normal 150-450 [facility] Comment on above: Performed By: #### C BC #### [facility] [address] [place] [address] Dr. Michelle Cali RBC 4.43 106/ul Normal 4.20-5.40 [facility] Comment on above: Performed By: #### C BC #### [facility] [address] [place] [address] Dr. Michelle Cali WBC 10.2 103/ul Normal 4.0-11.0 [facility] Comment on above: Performed By: #### C BC #### [facility] [address] [place] [address] Dr. Michelle Cali D-DIMERon 12-04-2022 D-DIMER 0.19 mg/L FEU Normal <=0.[address] [facility] Comment on above: Performed By: #### C BC #### [facility] [address] [place] [address] Dr. Michelle Cali D-DIMER COMMENTS SEE BELOW Normal [facility] Comment on above: Result Comment: Incr eases [...] hospitalization. Performed By: #### C BC #### [facility] [address] [place] [address] Dr. Michelle HATFIELD URINE PROFILEon 3 Bilirubin Ql (U) Negative Normal NEGATIVE [facility] Comment on above: Performed By: #### P REGU, ERUR #### [facility] [address] [place] [address] Dr. Michelle Cali Clarity (U) CLEAR Normal CLEAR [facility] Comment on above: Performed By: #### P REGU, ERUR #### [facility] [address] [place] [address] Dr. Michelle Cali Color (U) YELLOW Normal YELLOW [facility] Comment on above: Performed By: #### P REGU, ERUR #### [facility] [address] [place] [address] Dr. Michelle COOND A micrscopic examination will be performed if indicated. Normal [facility] Comment on above: Performed By: #### P REGU, ERUR #### [facility] [address] [place] [address] Dr. Michelle Cali Glucose Ql (U) Negative Normal NEGATIVE [facility] Comment on above: Performed By: #### P REGU, ERUR #### [facility] [address] [place] [address] Dr. Michelle Cali Hemoglobin Ql (U) Negative Normal NEGATIVE [facility] Comment on above: Performed By: #### P REGU, ERUR #### [facility] [address] [place] [address] Dr. Michelle Cali Ketones Ql (U) Negative Normal NEGATIVE [facility] Comment on above: Performed By: #### P REGU, ERUR #### [facility] [address] [place] [address] Dr. Michelle Cali LEUKOCYTES Negative Normal NEGATIVE [facility] Comment on above: Performed By: #### P REGU, ERUR #### [facility] [address] [place] [address] Dr. Michelle Cali Nitrite Ql (U) Negative Normal NEGATIVE [facility] Comment on above: Performed By: #### P REGU, ERUR #### [facility] [address] [address] [address] Michelle Cali pH (U) 6.0 [pH] Normal 5-9 [facility] Comment on above: Performed By: #### P REGU, ERUR #### [facility] [address] [address] [address] Michelle Cali SPEC GRAVITY >=1.030 Abnormal 1.005-<=1.025 [facility] Comment on above: Performed By: #### P REGU, ERUR #### [facility] [address] [place] [address] Dr. Michelle Cali UA PROTEIN TRACE Normal NEGATIVE/ TRACE [facility] Comment on above: Performed By: #### P REGU, ERUR #### [facility] [address] [address] [address] Michelle Cali UR MICRO IND NOT INDICATED Normal [facility] Comment on above: Performed By: #### P REGU, ERUR #### [facility] [address] [address] [address] Michelle Cali Urobilinogen Qn (U) 0.2 {Kalyan'U}/dL Normal 0.2 - 1. 0 [facility] Comment on above: Performed By: #### P REGU, ERUR #### [facility] [address] [address] [address] Michelle Cali URon 12-04-2022 , QUAL Negative Normal NEGATIVE [facility] Comment on above: Performed By: #### P REGU, ERUR #### [facility] [address] [place] [address] Dr. Michelle Cali PROF 14(COMP METB)on 023 Albumin [Mass/Vol] 3.9 g/dL Normal 3.4-5.0 [facility] Comment on above: Performed By: #### C BC #### [facility] [address] [place] [address] Dr. Michelle Cali Albumin/Globulin [Mass ratio] 1.0 {ratio} Normal [facility] Comment on above: Performed By: #### C BC #### [facility] [address] [place] [address] Dr. Michelle Cali ALP [Catalytic activity/Vol] 69 U/L Normal 46-116 [facility] Comment on above: Performed By: #### C BC #### [facility] [address] [place] [address] Dr. Michelle Cali ALT [Catalytic activity/Vol] 13 U/L Critically low 14-59 [facility] Comment on above: Performed By: #### C BC #### [facility] [address] [place] [address] Dr. Michelle Cali Anion gap [Moles/Vol] 13.6 mmol/L Normal [facility] Comment on above: Performed By: #### C BC #### [facility] [address] [place] [address] Dr. Michelle Cali AST [Catalytic activity/Vol] 11 U/L Critically low 15-37 [facility] Comment on above: Performed By: #### C BC #### [facility] [address] [place] [address] Dr. Michelle Cali Bilirubin [Mass/Vol] 0.3 mg/dL Normal 0.2-1.0 [facility] Comment on above: Performed By: #### C BC #### [facility] [address] [place] [address] Dr. Michelle Cali Calcium [Mass/Vol] 9.0 mg/dL Normal 8.5-10.1 [facility] Comment on above: Performed By: #### C BC #### [facility] [address] [place] [address] Dr. Michelle Cali Chloride [Moles/Vol] 105 mmol/L Normal 98-107 [facility] Comment on above: Performed By: #### C BC #### [facility] [address] [place] [address] Dr. Michelle Cali CO2 [Moles/Vol] 26.8 mmol/L Normal 21.0-32.0 [facility] Comment on above: Performed By: #### C BC #### [facility] [address] [address] [address] Michelle Cali Creatinine [Mass/Vol] 0.82 mg/dL Normal 0.55-1.02 [facility] Comment on above: Performed By: #### C BC #### [facility] [address] [address] [address] Michelle Cali EGFR-AF QATARI >60 Normal >=60 [facility] Comment on above: Performed By: #### C BC #### [facility] [address] [address] [address] Michelle Cali EGFR-NON AF QATARI >60 Normal >=60 [facility] Comment on above: Performed By: #### C BC #### [facility] [address] [place] [address] Dr. Michelle Cali Globulin (S) [Mass/Vol] 3.8 g/dL Normal [facility] Comment on above: Performed By: #### C BC #### [facility] [address] [address] [address] Michelle Cali Glucose [Mass/Vol] 104 mg/dL Normal 74-106 [facility] Comment on above: Performed By: #### C BC #### [facility] [address] [place] [address] Dr. Michelle Cali Potassium [Moles/Vol] 3.4 mmol/L Critically low 3.5-5.1 [facility] Comment on above: Performed By: #### C BC #### [facility] [address] [place] [address] Dr. Michelle Cali Protein [Mass/Vol] 7.7 g/dL Normal 6.4-8.2 [facility] Comment on above: Performed By: #### C BC #### [facility] [address] [address] [address] Michelle Cali Sodium [Moles/Vol] 142 mmol/L Normal 136-145 [facility] Comment on above: Performed By: #### C BC #### [facility] [address] [place] [address] Dr. Michelle Cali Urea nitrogen [Mass/Vol] 9.0 mg/dL Normal 7.0-18.0 [facility] Comment on above: Performed By: #### C BC #### [facility] [address] [place] [address] Dr. Michelle Cali Urea nitrogen/Creatinine [Mass ratio] 11.0 mg/mg Normal [facility] Comment on above: Performed By: #### C BC #### [facility] [address] [place] [address] Dr. Michelle Cali TSHon 12-04-2022 TSH 6.358 uIU/mL Critically high 0.358-3.740 [facility] Comment on above: Performed By: #### C BC #### [facility] [address] [place] [address] Dr. Michelle Cali INSULINon 09-19-2022 Insulin 6.8 uIU/mL Normal 2.6-24.9 [facility] Comment on above: Performed By: #### C BC #### [facility] [address] [place] [address] Dr. Michelle Cali CBC AUTO DIFFon 09-18-2022 BASO # 0.1 103/ul Normal 0.0-0.1 [facility] Comment on above: Performed By: #### C BC #### [facility] [address] [place] [address] Dr. Michelle Cali Basophils/100 WBC (Bld) 0.8 % Normal 0.2-2.0 [facility] Comment on above: Performed By: #### C BC #### [facility] [address] [place] [address] Dr. Michelle Cali EO # 0.1 103/ul Normal 0.0-0.7 [facility] Comment on above: Performed By: #### C BC #### [facility] [address] [place] [address] Dr. Michelle Cali Eosinophils/100 WBC (Bld) 0.8 % Critically low 0.9-7.0 [facility] Comment on above: Performed By: #### C BC #### [facility] [address] [place] [address] Dr. Michelle Cali Erythrocyte distribution width (RBC) [Ratio] 12.4 % Normal 11.0-15.0 [facility] Comment on above: Performed By: #### C BC #### [facility] [address] [place] [address] Dr. Michelle Cali Hematocrit (Bld) [Volume fraction] 41.6 % Normal 36.0-48.0 [facility] Comment on above: Performed By: #### C BC #### [facility] [address] [place] [address] Dr. Michelle Cali Hemoglobin (Bld) [Mass/Vol] 14.3 g/dL Normal 12.0-16.0 [facility] Comment on above: Performed By: #### C BC #### [facility] [address] [place] [address] Dr. Michelle Cali IG # 0.03 10e3/ul Normal 0.00-0.03 [facility] Comment on above: Performed By: #### C BC #### [facility] [address] [place] [address] Dr. Michelle Cali IG % 0.3 % Normal 0.0-0.5 [facility] Comment on above: Performed By: #### C BC #### [facility] [address] [place] [address] Dr. Michelle Cali LYMPH # 3.1 103/ul Normal 1.2-3.8 [facility] Comment on above: Performed By: #### C BC #### [facility] [address] [place] [address] Dr. Michelle Cali Lymphocytes/100 WBC (Bld) 32.8 % Normal 20.5-60.0 [facility] Comment on above: Performed By: #### C BC #### [facility] [address] [place] [address] Dr. Michelle Cali MANUAL DIFF REQ NO Normal [facility] Comment on above: Performed By: #### C BC #### [facility] [address] [place] [address] Dr. Michelle Cali MCH (RBC) [Entitic mass] 29.5 pg Normal 26.7-34.0 [facility] Comment on above: Performed By: #### C BC #### [facility] [address] [place] [address] Dr. Michelle Cali MCHC (RBC) [Mass/Vol] 34.4 g/dL Normal 29.9-35.2 [facility] Comment on above: Performed By: #### C BC #### [facility] [address] [place] [address] Dr. Michelle Cali MCV (RBC) [Entitic vol] 86.0 fL Normal 81.0-99.0 [facility] Comment on above: Performed By: #### C BC #### [facility] [address] [place] [address] Dr. Michelle Cali MONO # 0.5 103/ul Normal 0.3-0.8 [facility] Comment on above: Performed By: #### C BC #### [facility] [address] [place] [address] Dr. Michelle Cali Monocytes/100 WBC (Bld) 5.6 % Normal 1.7-12.0 [facility] Comment on above: Performed By: #### C BC #### [facility] [address] [place] [address] Dr. Michelle Cali NEUT # 5.7 103/ul Normal 1.4-6.5 [facility] Comment on above: Performed By: #### C BC #### [facility] [address] [place] [address] Dr. Michelle Cali Neutrophils/100 WBC (Bld) 59.7 % Normal 43.0-75.0 [facility] Comment on above: Performed By: #### C BC #### [facility] [address] [place] [address] Dr. Michelle Cali Platelet mean volume (Bld) [Entitic vol] 10.3 fL Normal 9.5-13.5 [facility] Comment on above: Performed By: #### C BC #### [facility] [address] [place] [address] Dr. Michelle Cali PLT 319 103/ul Normal 150-450 [facility] Comment on above: Performed By: #### C BC #### [facility] [address] [address] [address] Michelle Cali RBC 4.84 106/ul Normal 4.20-5.40 [facility] Comment on above: Performed By: #### C BC #### [facility] [address] [place] [address] Dr. Michelle Cali WBC 9.5 103/ul Normal 4.0-11.0 [facility] Comment on above: Performed By: #### C BC #### [facility] [address] [place] [address] Dr. Michelle Cali FREE THYROXINE INDEX T7on FTI 2.36 Normal 1.30-4.50 [facility] Comment on above: Performed By: #### T SH, CMP, T7, LIPID #### [facility] [address] [place] [address] Dr. Michelle Cali T3U 31.0 % Normal 30.0-39.0 [facility] Comment on above: Performed By: #### T SH, CMP, T7, LIPID #### [facility] [address] [place] [address] Dr. Michelle Cali T4 [Mass/Vol] 7.60 ug/dL Normal 4.80-13.90 [facility] Comment on above: Performed By: #### T SH, CMP, T7, LIPID #### [facility] [address] [place] [address] Dr. Michelle Cali GLYCOHEMOGLOBIN A1Con 2022 ADA RECOMMENDATION SEE BELOW Normal [facility] Comment on above: Result Comment: ADA RECOMMENDED LIMIT 4.0 - 6.0 ADA THERAPEUTIC TARGET < 7.0 ACTION SUGGESTED > 7.0 Performed By: #### C BC #### [facility] [address] [place] [address] Dr. Michelle Cali Glucose [Mass/Vol] 105 mg/dL Normal [facility] Comment on above: Performed By: #### C BC #### [facility] [address] [address] [address] Michelle Cali HbA1c (Bld) [Mass fraction] 5.3 % Normal 4.5-6.2 [facility] Comment on above: Performed By: #### C BC #### [facility] [address] [address] [address] Michelle Cali IRONon 09-18-2022 Iron [Mass/Vol] 80.0 ug/dL Normal 50.0-170.0 [facility] Comment on above: Performed By: #### I ABIGAIL #### [facility] [address] [address] [address] Michelle Cali LIPID PROFILEon 09-18-2022 CHOL-HDL RATIO NORM SEE BELOW Normal [facility] Comment on above: Result Comment: 3.3 - 4.4 LOW RISK 4.4 - 7.1 AVERAGE RISK 7.1 - 11.0 MODERATE RISK >11.0 HIGH RISK Performed By: #### T SH, CMP, T7, LIPID #### [facility] [address] [address] [address] Michelle Cali Cholesterol [Mass/Vol] 175 mg/dL Normal <=200 [facility] Comment on above: Performed By: #### T SH, CMP, T7, LIPID #### [facility] [address] [address] [address] Michelle Cali Cholesterol in HDL [Mass/Vol] 72 mg/dL Critically high 40-60 [facility] Comment on above: Performed By: #### T SH, CMP, T7, LIPID #### [facility] [address] [address] [address] Michelle Cali Cholesterol in LDL [Mass/Vol] 85.8 mg/dL Normal [facility] [facility] Comment on above: Performed By: #### T SH, CMP, T7, LIPID #### [facility] [address] [address] [address] Michelle Cali Cholesterol.total/Cho lesterol in HDL [Mass ratio] 2.4 {ratio} Normal [facility] Comment on above: Performed By: #### T SH, CMP, T7, LIPID #### [facility] [address] [address] [address] Michelle Cali HDL NORMAL > or = 60 mg/dl - LOW CARDIOVASCULAR RISK <40 mg/dl - HIGH CARDIOVASCULAR RISK Normal [facility] Comment on above: Performed By: #### T SH, CMP, T7, LIPID #### [facility] [address] [address] [address] Michelle Cali LDL CALC NORMAL SEE BELOW Normal [facility] Comment on above: Result Comment: <100 mg/dl OPTIMAL 100 - 129 mg/dl NEAR OR ABOVE OPTIMAL 130 - 159 mg/dl BORDERLINE HIGH 160 - 189 mg/dl HIGH >190 mg/dl VERY HIGH Performed By: #### T SH, CMP, T7, LIPID #### [facility] [address] [address] [address] Michelle Cali Triglyceride [Mass/Vol] 86 mg/dL Normal <=150 [facility] Comment on above: Performed By: #### T SH, CMP, T7, LIPID #### [facility] [address] [address] [address] Michelle Cali VLDL CALC 17.2 mg/dL Normal [facility] Comment on above: Performed By: #### T SH, CMP, T7, LIPID #### [facility] [address] [address] [address] Michelle Cali PROF 14(COMP METB)on 023 Albumin [Mass/Vol] 4.3 g/dL Normal 3.4-5.0 [facility] Comment on above: Performed By: #### T SH, CMP, T7, LIPID #### [facility] [address] [address] [address] Michelle Cali Albumin/Globulin [Mass ratio] 1.0 {ratio} Normal [facility] Comment on above: Performed By: #### T SH, CMP, T7, LIPID #### [facility] [address] [address] [address] Michelle Cali ALP [Catalytic activity/Vol] 65 U/L Normal 46-116 [facility] Comment on above: Performed By: #### T SH, CMP, T7, LIPID #### [facility] [address] [place] [address] Dr. Michelle Cali ALT [Catalytic activity/Vol] 17 U/L Normal 14-59 [facility] Comment on above: Performed By: #### T SH, CMP, T7, LIPID #### [facility] [address] [place] [address] Dr. Michelle Cali Anion gap [Moles/Vol] 12.2 mmol/L Normal [facility] Comment on above: Performed By: #### T SH, CMP, T7, LIPID #### [facility] [address] [place] [address] Dr. Michelle Cali AST [Catalytic activity/Vol] 15 U/L Normal 15-37 [facility] Comment on above: Performed By: #### T SH, CMP, T7, LIPID #### [facility] [address] [place] [address] Dr. Michelle Cali Bilirubin [Mass/Vol] 0.4 mg/dL Normal 0.2-1.0 [facility] Comment on above: Performed By: #### T SH, CMP, T7, LIPID #### [facility] [address] [place] [address] Dr. Michelle Cali Calcium [Mass/Vol] 9.4 mg/dL Normal 8.5-10.1 [facility] Comment on above: Performed By: #### T SH, CMP, T7, LIPID #### [facility] [address] [place] [address] Dr. Michelle Cali Chloride [Moles/Vol] 104 mmol/L Normal 98-107 [facility] Comment on above: Performed By: #### T SH, CMP, T7, LIPID #### [facility] [address] [place] [address] Dr. Michelle Cali CO2 [Moles/Vol] 27.7 mmol/L Normal 21.0-32.0 [facility] Comment on above: Performed By: #### T SH, CMP, T7, LIPID #### [facility] [address] [address] [address] Michelle Cali Creatinine [Mass/Vol] 0.63 mg/dL Normal 0.55-1.02 [facility] Comment on above: Performed By: #### T SH, CMP, T7, LIPID #### [facility] [address] [address] [address] Michelle Cali EGFR-AF QATARI >60 Normal >=60 [facility] Comment on above: Performed By: #### T SH, CMP, T7, LIPID #### [facility] [address] [address] [address] Michelle Cali EGFR-NON AF QATARI >60 Normal >=60 [facility] Comment on above: Performed By: #### T SH, CMP, T7, LIPID #### [facility] [address] [address] [address] Michelle Cali Globulin (S) [Mass/Vol] 4.2 g/dL Normal [facility] Comment on above: Performed By: #### T SH, CMP, T7, LIPID #### [facility] [address] [address] [address] Michelle Cali Glucose [Mass/Vol] 83 mg/dL Normal 74-106 [facility] Comment on above: Performed By: #### T SH, CMP, T7, LIPID #### [facility] [address] [address] [address] Michelle Cali Potassium [Moles/Vol] 3.9 mmol/L Normal 3.5-5.1 [facility] Comment on above: Performed By: #### T SH, CMP, T7, LIPID #### [facility] [address] [address] [address] Michelle Cali Protein [Mass/Vol] 8.5 g/dL Critically high 6.4-8.2 [facility] Comment on above: Performed By: #### T SH, CMP, T7, LIPID #### [facility] [address] [address] [address] Michelle Cali Sodium [Moles/Vol] 140 mmol/L Normal 136-145 [facility] Comment on above: Performed By: #### T SH, CMP, T7, LIPID #### [facility] [address] [address] [address] Michelle Cali Urea nitrogen [Mass/Vol] 9.0 mg/dL Normal 7.0-18.0 [facility] Comment on above: Performed By: #### T SH, CMP, T7, LIPID #### [facility] [address] [address] [address] Michelle Cali Urea nitrogen/Creatinine [Mass ratio] 14.3 mg/mg Normal [facility] Comment on above: Performed By: #### T SH, CMP, T7, LIPID #### [facility] [address] [address] [address] Michelle Cali TSHon 09-18-2022 TSH 1.245 uIU/mL Normal 0.358-3.740 [facility] Comment on above: Performed By: #### T SH, CMP, T7, LIPID #### [facility] [address] ABD/PELV W CONon 07-06-20 CT [...] JEFFREY BEGUM Date: 2022-07-06 01:26 Normal [facility] CBC AUTO DIFFon 07-05-2022 BASO # 0.1 103/ul Normal 0.0-0.1 [facility] Comment on above: Performed By: #### C BC #### [facility] [address] [address] [address] Michelle Cali Basophils/100 WBC (Bld) 0.9 % Normal 0.2-2.0 [facility] Comment on above: Performed By: #### C BC #### [facility] [address] [address] [address] Michelle Cali EO # 0.1 103/ul Normal 0.0-0.7 [facility] Comment on above: Performed By: #### C BC #### [facility] [address] [address] [address] Michelle Cali Eosinophils/100 WBC (Bld) 1.0 % Normal 0.9-7.0 [facility] Comment on above: Performed By: #### C BC #### [facility] [address] [address] [address] Michelle Cali Erythrocyte distribution width (RBC) [Ratio] 12.5 % Normal 11.0-15.0 [facility] Comment on above: Performed By: #### C BC #### [facility] [address] [address] [address] Michelle Cali Hematocrit (Bld) [Volume fraction] 39.6 % Normal 36.0-48.0 [facility] Comment on above: Performed By: #### C BC #### [facility] [address] [address] [address] Michelle Cali Hemoglobin (Bld) [Mass/Vol] 13.6 g/dL Normal 12.0-16.0 [facility] Comment on above: Performed By: #### C BC #### [facility] [address] [place] [address] Dr. Michelle Cali IG # 0.02 10e3/ul Normal 0.00-0.03 [facility] Comment on above: Performed By: #### C BC #### [facility] [address] [place] [address] Dr. Michelle Cali IG % 0.2 % Normal 0.0-0.5 [facility] Comment on above: Performed By: #### C BC #### [facility] [address] [place] [address] Dr. Michelle Cali LYMPH # 4.0 103/ul Critically high 1.2-3.8 [facility] Comment on above: Performed By: #### C BC #### [facility] [address] [place] [address] Dr. Michelle Cali Lymphocytes/100 WBC (Bld) 44.0 % Normal 20.5-60.0 [facility] Comment on above: Performed By: #### C BC #### [facility] [address] [place] [address] Dr. Michelle Cali MANUAL DIFF REQ NO Normal [facility] Comment on above: Performed By: #### C BC #### [facility] [address] [place] [address] Dr. Michelle Cali MCH (RBC) [Entitic mass] 29.7 pg Normal 26.7-34.0 [facility] Comment on above: Performed By: #### C BC #### [facility] [address] [place] [address] Dr. Michelle Cali MCHC (RBC) [Mass/Vol] 34.3 g/dL Normal 29.9-35.2 [facility] Comment on above: Performed By: #### C BC #### [facility] [address] [place] [address] Dr. Michelle Cali MCV (RBC) [Entitic vol] 86.5 fL Normal 81.0-99.0 [facility] Comment on above: Performed By: #### C BC #### [facility] [address] [address] [address] Michelle Cali MONO # 0.6 103/ul Normal 0.3-0.8 [facility] Comment on above: Performed By: #### C BC #### [facility] [address] [place] [address] Dr. Michelle Cali Monocytes/100 WBC (Bld) 6.7 % Normal 1.7-12.0 [facility] Comment on above: Performed By: #### C BC #### [facility] [address] [place] [address] Dr. Michelle Cali NEUT # 4.2 103/ul Normal 1.4-6.5 [facility] Comment on above: Performed By: #### C BC #### [facility] [address] [place] [address] Dr. Michelle Cali Neutrophils/100 WBC (Bld) 47.2 % Normal 43.0-75.0 [facility] Comment on above: Performed By: #### C BC #### [facility] [address] [place] [address] Dr. Michelle Cali Platelet mean volume (Bld) [Entitic vol] 11.4 fL Normal 9.5-13.5 [facility] Comment on above: Performed By: #### C BC #### [facility] [address] [place] [address] Dr. Michelle Cali PLT 342 103/ul Normal 150-450 [facility] Comment on above: Performed By: #### C BC #### [facility] [address] [place] [address] Dr. Michelle Cali RBC 4.58 106/ul Normal 4.20-5.40 [facility] Comment on above: Performed By: #### C BC #### [facility] [address] [place] [address] Dr. Michelle Cali WBC 9.0 103/ul Normal 4.0-11.0 [facility] Comment on above: Performed By: #### C BC #### [facility] [address] [place] [address] Dr. Michelle Cali PREG HCG QUALon 07-05-2022 , QUAL Negative Normal NEGATIVE [facility] Comment on above: Performed By: #### P REG #### [facility] [address] [place] [address] Dr. Michelle Cali PROF 14(COMP METB)on 022 Albumin [Mass/Vol] 4.4 g/dL Normal 3.4-5.0 [facility] Comment on above: Performed By: #### C BC #### [facility] [address] [place] [address] Dr. Michelle Cali Albumin/Globulin [Mass ratio] 1.1 {ratio} Normal [facility] Comment on above: Performed By: #### C BC #### [facility] [address] [place] [address] Dr. Michelle Cali ALP [Catalytic activity/Vol] 82 U/L Normal 46-116 [facility] Comment on above: Performed By: #### C BC #### [facility] [address] [place] [address] Dr. Michelle Cali ALT [Catalytic activity/Vol] 22 U/L Normal 14-59 [facility] Comment on above: Performed By: #### C BC #### [facility] [address] [place] [address] Dr. Micehlle Cali Anion gap [Moles/Vol] 9.3 mmol/L Normal [facility] Comment on above: Performed By: #### C BC #### [facility] [address] [place] [address] Dr. Michelle Cali AST [Catalytic activity/Vol] 17 U/L Normal 15-37 [facility] Comment on above: Performed By: #### C BC #### [facility] [address] [place] [address] Dr. Michelle Cali Bilirubin [Mass/Vol] 0.5 mg/dL Normal 0.2-1.0 [facility] Comment on above: Performed By: #### C BC #### [facility] [address] [place] [address] Dr. Michelle Cali Calcium [Mass/Vol] 9.1 mg/dL Normal 8.5-10.1 [facility] Comment on above: Performed By: #### C BC #### [facility] [address] [place] [address] Dr. Michelle Cali Chloride [Moles/Vol] 104 mmol/L Normal 98-107 [facility] Comment on above: Performed By: #### C BC #### [facility] [address] [address] [address] Michelle Cali CO2 [Moles/Vol] 26.8 mmol/L Normal 21.0-32.0 [facility] Comment on above: Performed By: #### C BC #### [facility] [address] [place] [address] Dr. Michelle Cali Creatinine [Mass/Vol] 0.73 mg/dL Normal 0.55-1.02 [facility] Comment on above: Performed By: #### C BC #### [facility] [address] [place] [address] Dr. Michelle Cali EGFR-AF QATARI >60 Normal >=60 [facility] Comment on above: Performed By: #### C BC #### [facility] [address] [place] [address] Dr. Michelle Cali EGFR-NON AF QATARI >60 Normal >=60 [facility] Comment on above: Performed By: #### C BC #### [facility] [address] [place] [address] Dr. Michelle Cali Globulin (S) [Mass/Vol] 4.1 g/dL Normal [facility] Comment on above: Performed By: #### C BC #### [facility] [address] [place] [address] Dr. Michelle Cali Glucose [Mass/Vol] 84 mg/dL Normal 74-106 [facility] Comment on above: Performed By: #### C BC #### [facility] [address] [place] [address] Dr. Michelle Cali Potassium [Moles/Vol] 3.1 mmol/L Critically low 3.5-5.1 [facility] Comment on above: Performed By: #### C BC #### [facility] [address] [address] [address] Michelle Cali Protein [Mass/Vol] 8.5 g/dL Critically high 6.4-8.2 [facility] Comment on above: Performed By: #### C BC #### [facility] [address] [address] [address] Michelle Cali Sodium [Moles/Vol] 137 mmol/L Normal 136-145 [facility] Comment on above: Performed By: #### C BC #### [facility] [address] [address] [address] Michelle Cali Urea nitrogen [Mass/Vol] 13.0 mg/dL Normal 7.0-18.0 [facility] Comment on above: Performed By: #### C BC #### [facility] [address] [address] [address] Michelle Cali Urea nitrogen/Creatinine [Mass ratio] 17.8 mg/mg Normal [facility] Comment on above: Performed By: #### C BC #### [facility] [address] [address] [address] Michelle Cali HCG,Urineon 02-07-2021 Beta HCG ( test) Ql (U) Negative Normal [facility] Comment on above: Result Comment: PERF ORMED BY: [place] [address] PATHOLOGIST MICRO COMPUTER DATA PROCESSOR WENDY TRUONG M.D. Performed By: #### U HCG #### [address] [place] 02-07-2021 L Specimen: [id number] Received: 02/07/21 Status: YANNA Beard Num: [id number] Spec Type: Surgical Subm Dr: Ranjit Coe MD Tissues: A Breast Reduction - Mammoplasty (RIGHT BREAST TISSUE) B Breast Reduction - Mammoplasty (LEFT BREAST TISSUE) Procedures: HE Stain/8, Gross/Micro L4/2 Patient Age/Sex Location Account Attending Physician Latha Steel [place] [id number] Ranjit Coe MD SPEC NUM: [id number] RECD: 02/07/21 STATUS: YANNA MONKJordan NUM: [id number] YOUNG: 02/07/21- [facility] DR: Ranjit Coe MD ENTERED: 02/07/21 GALI JIMÉNEZ: SPEC TYPE: Surgical DEPT: S ENTERED BY: [id number] RECV BY: [id number] ORDERED: HE Stain/8, Gross/Micro L4/2 ORDERED: HE [...] obvious masses or lesions are grossly identified. Equal Opportunity Counselor sections are submitted in four cassettes labeled A1-A4. (SM/JS) B. Received in formalin labeled with the patient's name, number and left breast tissue is a 379 g aggregate of lozada, smooth to wrinkled skin with underlying yellow lobulated adipose tissue (20 x 15 x 4.5 cm in aggregate). Sectioning reveals approximately 95% yellow lobulated adipose tissue and 5% lozada-white thin fibrous tissue. No obvious masses or lesions Specimen: [id number] Received: 02/07/21 Status: YANNA Beard Num: [id number] Spec Type: Surgical Subm Dr: Ranjit Coe MD Tissues: A Breast Reduction - Mammoplasty (RIGHT BREAST TISSUE) B Breast Reduction - Mammoplasty (LEFT BREAST TISSUE) Procedures: HE Stain/8, Gross/Micro L4/2 Patient: Latha Steel [id number] (Continued) Specimen: [id number] Received: 02/07/21 (Continued) Gross Description (Continued) Signed (signature on file) Wendy Truong MD 02/08/21 1713 Specimen: [id number] Received: 02/07/21 Status: YANNA Chirag Num: [id number] Spec Type: Surgical Subm Dr: Ranjit Coe MD Tissues: A Breast Reduction - Mammoplasty (RIGHT BREAST TISSUE) B Breast Reduction - Mammoplasty (LEFT BREAST TISSUE) Procedures: AFRICA Granda/Gunner Rodas/Samanta L4/2 Patient: Latha Steel [id number] (Continued) Specimen: [id number] Received: 02/07/21 (Continued) Gross Description (Continued) are grossly identified. Equal Opportunity Counselor sections are submitted in four cassettes labeled B1- B4. (ALMA/DUYEN) Microscopic Description A. Four glass slides with H E stained material have been examined. The microscopic findings support the above pathologic diagnosis. B. Four glass slides with H E stained material have been examined. The microscopic findings support the above pathologic diagnosis. [id number] Specimen: [id number] Received: 02/07/21 Status: YESENIADelia Beard Num: [id number] Spec Type: Surgical Subm Dr: Ranjit Coe MD Tissues: A Breast Reduction - Mammoplasty (RIGHT BREAST TISSUE) B Breast Reduction - Mammoplasty (LEFT BREAST TISSUE) Procedures: HE Stain/8, Gross/Micro L4/2 Patient: Latha Steel [id number] (Continued) (more content not included)... Normal [facility] [place] [facility] [place] SARS-CoV-2 (COVID-19) RNA LALITO+probe Ql (Unsp spec) Negative Normal Negative [facility] Comment on above: Order Comment: Healt hcare Worker?: N Result Comment: Testing for SARS-CoV-2 by RT-PCR This test was developed and its performance characteristics determined by [employer] and validated at the [facility]. This test has not been FDA cleared [...] is terminated or revoked sooner. PERFORMED BY: [place] [address] PATHOLOGIST MICRO COMPUTER DATA PROCESSOR WENDY TRUONG M.D. Performed By: #### C OVID 19 [facility] [place] #### [address] [id number] [facility] Encounters Encounter Date Encounter Type Care Provider Facility Start: 12-04-2022 End: 12-04-[address] SHANTELL SIMON . Facility:[facility] Start: 09-18-2022 End: 09-19-[address] JESUS ALMONTE . Facility: Start: 07-05-2022 End: 07-06-[address] JESUS ALMONTE . Facility:[facility] Start: 05-23-2022 End: 05-23-[address] JESUS ALMONTE . Facility:[facility] Payers Date Payer Category Payer Unknown [id number] 2.16.84 [id number] 2001 Unknown [id number] [id number] [id number] 2001 Unknown [id number] 2.16.84 [id number] 2001 Unknown [id number] 2.16.84 [id number] 1958 Self-pay 1958 Unknown [id number] Summary Purpose Family History No Family History Records FoundNo Family History Records Found Advance Directives No Advanced Directives Records FoundNo Advanced Directives Records Found Additional Source Comments INFORMATION SOURCE (unrecogn ized section and content) DATE CREATED AUTHOR 08/11/2021 [facility] DATE CREATED AUTHOR AUTHOR'S LIBERTADIZ ATRICH 12/09/2022 [facility] FOR RECORDS PERTAINING TO PATIENTS WHO ARE [...] BE BASED ON THE PRIMARY CLINICAL RECORDS. [facility] [employer] provides no warranty or guarantee of the accuracy or completeness of information in this document.
== END 2023-10-21 18:37 | disposition home or self-care (01) ==
PROVIDERS: Emergency Provider Emergency Medicine; PCP Family Medicine
DX: R51.9 Headache, unspecified (principal)
CPT/HCPCS: 70450; 99284

== ENCOUNTER 2023-12-18 08:26 | Outpatient (OUT) | payer BC, SELFPAY ==
--- NOTE | 2023-12-18 | US_ITS ---
[address] [address] Patient Name: JAMES STEEL MRN: [id number] date: 2000 Sex: F Assigned Patient Location: [facility] Current Patient Location: [facility] Accession/Order Number: [id number] Exam Date: 12/18/2023 08:33 Report Date: 12/18/2023 09:11 At the request of: ROOSEVELT CHIN Procedure: US OB transvaginal EXAMINATION: US OB transvaginal HISTORY: MISSED MENSES COMPARISON: No relevant comparison available. FINDINGS: GESTATIONAL SAC: Present and normal appearing. YOLK SAC: Absent POLE: Present and normal appearing. CARDIAC: Present. UTERUS: Normal size and appearance. OVARIES: Right: Normal. Left: Normal. CERVIX: 3.7 cm in length and closed. CUL-DE-SAC: Normal. OTHER: None. AGE BY LMP: 9 weeks 3 days DEN BY LMP: 07/19/2024 AGE BY US CRL: 10 weeks 0 days DEN BY US CRL: 07/15/2024 US/US OB transvaginal IMPRESSION: 1. Single live intrauterine . Electronically authenticated by: ALEXIS STRONG Date: 12/18/2023 09:11
--- OUTSIDE RECORDS SUMMARY | 2023-12-18 08:30 | XMS_ITS ---
Patient Summarization (C-CDA 2.1 CCD) Created on: December 18, 2023 LATHA STEEL : 2000 Sex: Female Author Organization Sample organization Care Team Providers Care [employer] Pl[employer] Installer Name Role Phone MARKER ., DR STINSON [...] [employer] Unavailable KEL, JEFFREY Consulting Unavailable Encounters Encounter Date Encounter Type Care Provider Facility Start: 12-04-2022 End: 12-04-[address] SHANTELL SIMON . Facility:[facility] Start: 09-18-2022 End: 09-19-[address] JESUS AMLONTE . Facility: Start: 07-05-2022 End: 07-06-[address] JESUS ALMONTE . Facility:[facility] Start: 05-23-2022 End: 05-23-[address] JESUS ALMONTE . Facility:[facility] Payers Date Payer Category Payer Unknown [id number] 2.16.84 [id number] 2000 Unknown [id number] 2.16.84 [id number] 2001 Unknown [id number] 2.16.84 [id number] 2001 Unknown [id number] 2.16.84 [id number] 1958 Self-pay 1958 Unknown [id number] Problems Active Problems Problem Classification Problem Date [...] CK [Catalytic activity/Vol] 102 U/L Normal 26-192 [facility] Comment on above: Performed By: #### C BC #### [facility] [address] [place], [place] [address] Dr. Michelle Cali CK.MB [Mass/Vol] 0.74 ng/mL Normal <=3.[address] [facility] Comment on above: Performed By: #### C BC #### [facility] [address] [place] [address] Dr. Michelle Cali HSTROP 7.7 pg/mL Normal 4.0-51.3 [facility] Comment on above: Result Comment: CUT- OFF POINTS HAVE BEEN ESTABLISHED BASED ON THE FOURTH UNIVERSAL DEFINITIONS OF MYOCARDIAL INFARCTION. THE UPPER REFERENCE LIMIT (URL) OF TROPONIN, DEFINED THE 99TH PERCENTILE OF cTnI DISTRIBUTION IN A REFERENCE POPULATION, HAS BEEN CONFIRMED THE DECISION THRESHOLD FOR VA DIAGNOSIS. Performed By: #### C BC #### [facility] [address] [place] [address] Dr. Michelle Cali SHAHNAZ 24 ng/mL Normal 9-82 [facility] Comment on above: Performed By: #### C BC #### [facility] [address] [place] [address] Dr. Michelle Cali CBC AUTO DIFFon 12-04-2022 BASO # 0.1 103/ul Normal 0.0-0.1 [facility] Comment on above: Performed By: #### C BC #### [facility] [address] [place] [address] Dr. Michelle Cali Basophils/100 WBC (Bld) 0.9 % Normal 0.2-2.0 [facility] Comment on above: Performed By: #### C BC #### [facility] [address] [place] [address] Dr. Michelle Cali EO # 0.1 103/ul Normal 0.0-0.7 [facility] Comment on above: Performed By: #### C BC #### [facility] [address] [place] [address] Dr. Michelle Cali Eosinophils/100 WBC (Bld) 0.6 % Critically low 0.9-7.0 [facility] Comment on above: Performed By: #### C BC #### [facility] [address] [place] [address] Dr. Michelle Cali Erythrocyte distribution width (RBC) [Ratio] 12.3 % Normal 11.0-15.0 [facility] Comment on above: Performed By: #### C BC #### [facility] [address] [place] [address] Dr. Michelle Cali Hematocrit (Bld) [Volume fraction] 40.3 % Normal 36.0-48.0 [facility] Comment on above: Performed By: #### C BC #### [facility] [address] [place] [address] Dr. Michelle Cali Hemoglobin (Bld) [Mass/Vol] 13.2 g/dL Normal 12.0-16.0 [facility] Comment on above: Performed By: #### C BC #### [facility] [address] [place] [address] Dr. Michelle Cali IG # 0.03 10e3/ul Normal 0.00-0.03 [facility] Comment on above: Performed By: #### C BC #### [facility] [address] [place] [address] Dr. Michelle Cali IG % 0.3 % Normal 0.0-0.5 [facility] Comment on above: Performed By: #### C BC #### [facility] [address] [place] [address] Dr. Michelle Cali LYMPH # 4.1 103/ul Critically high 1.2-3.8 [facility] Comment on above: Performed By: #### C BC #### [facility] [address] [place] [address] Dr. Michelle Cali Lymphocytes/100 WBC (Bld) 39.9 % Normal 20.5-60.0 [facility] Comment on above: Performed By: #### C BC #### [facility] [address] [place] [address] Dr. Michelle Cali MANUAL DIFF REQ NO Normal [facility] Comment on above: Performed By: #### C BC #### [facility] [address] [place] [address] Dr. Michelle Cali MCH (RBC) [Entitic mass] 29.8 pg Normal 26.7-34.0 [facility] Comment on above: Performed By: #### C BC #### [facility] [address] [place] [address] Dr. Michelle Cali MCHC (RBC) [Mass/Vol] 32.8 g/dL Normal 29.9-35.2 [facility] Comment on above: Performed By: #### C BC #### [facility] [address] [place] [address] Dr. Michelle Cali MCV (RBC) [Entitic vol] 91.0 fL Normal 81.0-99.0 [facility] Comment on above: Performed By: #### C BC #### [facility] [address] [place] [address] Dr. Michelle Cali MONO # 0.5 103/ul Normal 0.3-0.8 [facility] Comment on above: Performed By: #### C BC #### [facility] [address] [place] [address] Dr. Michelle Cali Monocytes/100 WBC (Bld) 5.2 % Normal 1.7-12.0 [facility] Comment on above: Performed By: #### C BC #### [facility] [address] [place] [address] Dr. Michelle Cali NEUT # 5.4 103/ul Normal 1.4-6.5 [facility] Comment on above: Performed By: #### C BC #### [facility] [address] [place] [address] Dr. Michelle Cali Neutrophils/100 WBC (Bld) 53.1 % Normal 43.0-75.0 [facility] Comment on above: Performed By: #### C BC #### [facility] [address] [place] [address] Dr. Michelle Cali Platelet mean volume (Bld) [Entitic vol] 10.6 fL Normal 9.5-13.5 [facility] Comment on above: Performed By: #### C BC #### [facility] [address] [place] [address] Dr. Michelle Cali PLT 310 103/ul Normal 150-450 [facility] Comment on above: Performed By: #### C BC #### [facility] [address] [place] [address] Dr. Michelle Cali RBC 4.43 106/ul Normal 4.20-5.40 [facility] Comment on above: Performed By: #### C BC #### [facility] [address] [place] [address] Dr. Michelle Cali WBC 10.2 103/ul Normal 4.0-11.0 [facility] Comment on above: Performed By: #### C BC #### [facility] [address] [place] [address] Dr. Michelle Cali D-DIMERon 12-04-2022 D-DIMER 0.19 mg/L FEU Normal <=0.59 [facility] Comment on above: Performed By: #### C BC #### [facility] [address] [place] [address] Dr. Michelle Cali D-DIMER COMMENTS SEE BELOW Normal [facility] Comment on above: Result Comment: Incr [...] hospitalization. Performed By: #### C BC #### [facility] [address] [place] [address] Dr. Michelle Cali ER URINE PROFILEon 3 Bilirubin Ql (U) Negative Normal NEGATIVE [facility] Comment on above: Performed By: #### P REGU, ERUR #### [facility] [address] [place] [address] Dr. Michelle Cali Clarity (U) CLEAR Normal CLEAR [facility] Comment on above: Performed By: #### P REGU, ERUR #### [facility] [address] [place] [address] Dr. Michelle Cali Color (U) YELLOW Normal YELLOW [facility] Comment on above: Performed By: #### P REGU, ERUR #### [facility] [address] [place] [address] Dr. Michelle Cali ERUAHD A micrscopic examination will be performed if indicated. Normal [facility] Comment on above: Performed By: #### P REGU, ERUR #### [facility] [address] [place] [address] [address] Michelle Cali Glucose Ql (U) Negative Normal NEGATIVE [facility] Comment on above: Performed By: #### P REGU, ERUR #### [facility] [address] [place] [address] [address] Michelle Cali Hemoglobin Ql (U) Negative Normal NEGATIVE [facility] Comment on above: Performed By: #### P REGU, ERUR #### [facility] [address] [place] [address] [address] Michelle Cali Ketones Ql (U) Negative Normal NEGATIVE [facility] Comment on above: Performed By: #### P REGU, ERUR #### [facility] [address] [place] [address] Dr. Michelle Cali LEUKOCYTES Negative Normal NEGATIVE [facility] Comment on above: Performed By: #### P REGU, ERUR #### [facility] [address] [place] [address] Dr. Michelle Cali Nitrite Ql (U) Negative Normal NEGATIVE [facility] Comment on above: Performed By: #### P REGU, ERUR #### [facility] [address] [place] [address] Dr. Michelle Cali pH (U) 6.0 [pH] Normal 5-9 [facility] Comment on above: Performed By: #### P REGU, ERUR #### [facility] [address] [place] [address] Dr. Michelle Cali SPEC GRAVITY >=1.030 Abnormal 1.005-<=1.025 [facility] Comment on above: Performed By: #### P REGU, ERUR #### [facility] [address] [place] [address] Dr. Michelle Cali UA PROTEIN TRACE Normal NEGATIVE/ TRACE [facility] Comment on above: Performed By: #### P REGU, ERUR #### [facility] [address] [place] [address] Dr. Michelle Cali UR MICRO IND NOT INDICATED Normal [facility] Comment on above: Performed By: #### P JAVIER, ERUR #### [facility] [address] [place] [address] Dr. Michelle Cali Urobilinogen Qn (U) 0.2 {Kalyan'U}/dL Normal 0.2 - 1. 0 [facility] Comment on above: Performed By: #### P JAVIER, ERUR #### [facility] [address] [place] [address] Dr. Michelle Cali URon 12-04-2022 , QUAL Negative Normal NEGATIVE [facility] Comment on above: Performed By: #### P JAVIER, ERUR #### [facility] [address] [place] [address] Dr. Michelle Cali PROF 14(COMP METB)on 023 Albumin [Mass/Vol] 3.9 g/dL Normal 3.4-5.0 [facility] Comment on above: Performed By: #### C BC #### [facility] [address] [place] [address] Dr. Michelle Cali Albumin/Globulin [Mass ratio] 1.0 {ratio} Normal [facility] Comment on above: Performed By: #### C BC #### [facility] [address] [place] [address] Dr. Michelle Cali ALP [Catalytic activity/Vol] 69 U/L Normal 46-116 [facility] Comment on above: Performed By: #### C BC #### [facility] [address] [place] [address] Dr. Michelle Cali ALT [Catalytic activity/Vol] 13 U/L Critically low 14-59 [facility] Comment on above: Performed By: #### C BC #### [facility] [address] [place] [address] Dr. Michelle Cali Anion gap [Moles/Vol] 13.6 mmol/L Normal [facility] Comment on above: Performed By: #### C BC #### [facility] [address] [place] [address] Dr. Michelle Cali AST [Catalytic activity/Vol] 11 U/L Critically low 15-37 [facility] Comment on above: Performed By: #### C BC #### [facility] [address] [place] [address] Dr. Michelle Cali Bilirubin [Mass/Vol] 0.3 mg/dL Normal 0.2-1.0 [facility] Comment on above: Performed By: #### C BC #### [facility] [address] [place] [address] Dr. Michelle Cali Calcium [Mass/Vol] 9.0 mg/dL Normal 8.5-10.1 [facility] Comment on above: Performed By: #### C BC #### [facility] [address] [place] [address] Dr. Michelle Cali Chloride [Moles/Vol] 105 mmol/L Normal 98-107 [facility] Comment on above: Performed By: #### C BC #### [facility] [address] [place] [address] Dr. Michelle Cali CO2 [Moles/Vol] 26.8 mmol/L Normal 21.0-32.[address] [facility] Comment on above: Performed By: #### C BC #### [facility] [address] [place] [address] Dr. Michelle Cali Creatinine [Mass/Vol] 0.82 mg/dL Normal 0.55-1.02 [facility] Comment on above: Performed By: #### C BC #### [facility] [address] [place] [address] Dr. Michelle Cali EGFR-AF GREENLANDIC >60 Normal >=[address] [facility] Comment on above: Performed By: #### C BC #### [facility] [address] [place] [address] Dr. Michelle Cali EGFR-NON AF GREENLANDIC >60 Normal >=60 [facility] Comment on above: Performed By: #### C BC #### [facility] [address] [place] [address] Dr. Michelle Cali Globulin (S) [Mass/Vol] 3.8 g/dL Normal [facility] Comment on above: Performed By: #### C BC #### [facility] [address] [place] [address] Dr. Michelle Cali Glucose [Mass/Vol] 104 mg/dL Normal 74-106 [facility] Comment on above: Performed By: #### C BC #### [facility] [address] [place] [address] [address] Michelle Cali Potassium [Moles/Vol] 3.4 mmol/L Critically low 3.5-5.1 [facility] Comment on above: Performed By: #### C BC #### [facility] [address] [place] [address] Dr. Michelle Cali Protein [Mass/Vol] 7.7 g/dL Normal 6.4-8.2 [facility] Comment on above: Performed By: #### C BC #### [facility] [address] [place] [address] Dr. Michelle Cali Sodium [Moles/Vol] 142 mmol/L Normal 136-145 [facility] Comment on above: Performed By: #### C BC #### [facility] [address] [place] [address] Dr. Michelle Cali Urea nitrogen [Mass/Vol] 9.0 mg/dL Normal 7.0-18.0 [facility] Comment on above: Performed By: #### C BC #### [facility] [address] [place] [address] Dr. Michelle Cali Urea nitrogen/Creatinine [Mass ratio] 11.0 mg/mg Normal [facility] Comment on above: Performed By: #### C BC #### [facility] [address] [place] [address] [address] Michelle Cali TSHon 12-04-2022 TSH 6.358 uIU/mL Critically high 0.358-3.740 [facility] Comment on above: Performed By: #### C BC #### [facility] [address] [place] [address] Dr. Michelle Cali INSULINon 09-19-2022 Insulin 6.8 uIU/mL Normal 2.6-24.9 [facility] Comment on above: Performed By: #### C BC #### [facility] [address] [place] [address] Dr. Michelle Cali CBC AUTO DIFFon 09-18-2022 BASO # 0.1 103/ul Normal 0.0-0.1 [facility] Comment on above: Performed By: #### C BC #### [facility] [address] [place] [address] Dr. Michelle Cali Basophils/100 WBC (Bld) 0.8 % Normal 0.2-2.0 [facility] Comment on above: Performed By: #### C BC #### [facility] [address] [place] [address] Dr. Michelle Cali EO # 0.1 103/ul Normal 0.0-0.7 [facility] Comment on above: Performed By: #### C BC #### [facility] [address] [place] [address] Dr. Michelle Cali Eosinophils/100 WBC (Bld) 0.8 % Critically low 0.9-7.0 [facility] Comment on above: Performed By: #### C BC #### [facility] [address] [place] [address] Dr. Michelle Cali Erythrocyte distribution width (RBC) [Ratio] 12.4 % Normal 11.0-15.0 [facility] Comment on above: Performed By: #### C BC #### [facility] [address] [place] [address] Dr. Michelle Cali Hematocrit (Bld) [Volume fraction] 41.6 % Normal 36.0-48.0 [facility] Comment on above: Performed By: #### C BC #### [facility] [address] [place] [address] Dr. Michelle Cali Hemoglobin (Bld) [Mass/Vol] 14.3 g/dL Normal 12.0-16.0 [facility] Comment on above: Performed By: #### C BC #### [facility] [address] [place] [address] Dr. Michelle Cali IG # 0.03 10e3/ul Normal 0.00-0.03 [facility] Comment on above: Performed By: #### C BC #### [facility] [address] [place] [address] Dr. Michelle Cali IG % 0.3 % Normal 0.0-0.5 [facility] Comment on above: Performed By: #### C BC #### [facility] [address] [place] [address] Dr. Michelle Cali LYMPH # 3.1 103/ul Normal 1.2-3.8 [facility] Comment on above: Performed By: #### C BC #### [facility] [address] [place] [address] Dr. Michelle Cali Lymphocytes/100 WBC (Bld) 32.8 % Normal 20.5-60.0 [facility] Comment on above: Performed By: #### C BC #### [facility] [address] [place] [address] Dr. Michelle Cail MANUAL DIFF REQ NO Normal [facility] Comment on above: Performed By: #### C BC #### [facility] [address] [place] [address] Dr. Michelle Cali MCH (RBC) [Entitic mass] 29.5 pg Normal 26.7-34.0 [facility] Comment on above: Performed By: #### C BC #### [facility] [address] [place] [address] Dr. Michelle Cali MCHC (RBC) [Mass/Vol] 34.4 g/dL Normal 29.9-35.2 [facility] Comment on above: Performed By: #### C BC #### [facility] [address] [place] [address] Dr. Michelle Cali MCV (RBC) [Entitic vol] 86.0 fL Normal 81.0-99.0 [facility] Comment on above: Performed By: #### C BC #### [facility] [address] [place] [address] Dr. Michelle Cali MONO # 0.5 103/ul Normal 0.3-0.8 [facility] Comment on above: Performed By: #### C BC #### [facility] [address] [place] [address] Dr. Michelle Cali Monocytes/100 WBC (Bld) 5.6 % Normal 1.7-12.0 [facility] Comment on above: Performed By: #### C BC #### [facility] [address] [place] [address] Dr. Michelle Cali NEUT # 5.7 103/ul Normal 1.4-6.5 [facility] Comment on above: Performed By: #### C BC #### [facility] [address] [place] [address] Dr. Michelle Cali Neutrophils/100 WBC (Bld) 59.7 % Normal 43.0-75.0 [facility] Comment on above: Performed By: #### C BC #### [facility] [address] [place] [address] Dr. Michelle Cali Platelet mean volume (Bld) [Entitic vol] 10.3 fL Normal 9.5-13.5 [facility] Comment on above: Performed By: #### C BC #### [facility] [address] [place] [address] Dr. Michelle Cali PLT 319 103/ul Normal 150-450 [facility] Comment on above: Performed By: #### C BC #### [facility] [address] [place] [address] Dr. Michelle Cali RBC 4.84 106/ul Normal 4.20-5.40 [facility] Comment on above: Performed By: #### C BC #### [facility] [address] [place] [address] Dr. Michelle Cali WBC 9.5 103/ul Normal 4.0-11.0 [facility] Comment on above: Performed By: #### C BC #### [facility] [address] [place] [address] Dr. Michelle Cali FREE THYROXINE INDEX T7on FTI 2.36 Normal 1.30-4.50 [facility] Comment on above: Performed By: #### T SH, CMP, T7, LIPID #### [facility] [address] [place] [address] [address] Michelle Cali T3U 31.0 % Normal 30.0-39.0 [facility] Comment on above: Performed By: #### T SH, CMP, T7, LIPID #### [facility] [address] [place] [address] [address] Michelle Cali T4 [Mass/Vol] 7.60 ug/dL Normal 4.80-13.90 [facility] Comment on above: Performed By: #### T SH, CMP, T7, LIPID #### [facility] [address] [place] [address] Dr. Michelle Cali GLYCOHEMOGLOBIN A1Con 2022 ADA RECOMMENDATION SEE BELOW Normal [facility] Comment on above: Result Comment: ADA RECOMMENDED LIMIT 4.0 - 6.0 ADA THERAPEUTIC TARGET < 7.0 ACTION SUGGESTED > 7.0 Performed By: #### C BC #### [facility] [address] [place] [address] Dr. Michelle Cali Glucose [Mass/Vol] 105 mg/dL Normal [facility] Comment on above: Performed By: #### C BC #### [facility] [address] [place] [address] Dr. Michelle Cali HbA1c (Bld) [Mass fraction] 5.3 % Normal 4.5-6.2 [facility] Comment on above: Performed By: #### C BC #### [facility] [address] [place] [address] Dr. Michelle Cali IRONon 09-18-2022 Iron [Mass/Vol] 80.0 ug/dL Normal 50.0-170.0 [facility] Comment on above: Performed By: #### I ABIGAIL #### [facility] [address] [place] [address] Dr. Michelle Cali LIPID PROFILEon 09-18-2022 CHOL-HDL RATIO NORM SEE BELOW Normal [facility] Comment on above: Result Comment: 3.3 - 4.4 LOW RISK 4.4 - 7.1 AVERAGE RISK 7.1 - 11.0 MODERATE RISK >11.0 HIGH RISK Performed By: #### T SH, CMP, T7, LIPID #### [facility] [address] [place] [address] [address] Michelle Cali Cholesterol [Mass/Vol] 175 mg/dL Normal <=200 [facility] Comment on above: Performed By: #### T SH, CMP, T7, LIPID #### [facility] [address] [address] [address] Michelle Cali Cholesterol in HDL [Mass/Vol] 72 mg/dL Critically high 40-60 [facility] Comment on above: Performed By: #### T SH, CMP, T7, LIPID #### [facility] [address] [place] [address] Dr. Michelle Cali Cholesterol in LDL [Mass/Vol] 85.8 mg/dL Normal [facility] Comment on above: Performed By: #### T SH, CMP, T7, LIPID #### [facility] [address] [address] [address] Michelle Cali Cholesterol.total/Cho lesterol in HDL [Mass ratio] 2.4 {ratio} Normal [facility] Comment on above: Performed By: #### T SH, CMP, T7, LIPID #### [facility] [address] [place] [address] Dr. Michelle Cali HDL NORMAL > or = 60 mg/dl - LOW CARDIOVASCULAR RISK <40 mg/dl - HIGH CARDIOVASCULAR RISK Normal [facility] Comment on above: Performed By: #### T SH, CMP, T7, LIPID #### [facility] [address] [place] [address] Dr. Michelle Cali LDL CALC NORMAL SEE BELOW Normal [facility] Comment on above: Result Comment: <100 mg/dl OPTIMAL 100 - 129 mg/dl NEAR OR ABOVE OPTIMAL 130 - 159 mg/dl BORDERLINE HIGH 160 - 189 mg/dl HIGH >190 mg/dl VERY HIGH Performed By: #### T SH, CMP, T7, LIPID #### [facility] [address] [address] [address] Michelle Cali Triglyceride [Mass/Vol] 86 mg/dL Normal <=150 [facility] Comment on above: Performed By: #### T SH, CMP, T7, LIPID #### [facility] [address] [address] [address] Michelle Cali VLDL CALC 17.2 mg/dL Normal [facility] Comment on above: Performed By: #### T SH, CMP, T7, LIPID #### [facility] [address] [address] [address] Michelle Cali PROF 14(COMP METB)on 023 Albumin [Mass/Vol] 4.3 g/dL Normal 3.4-5.0 [facility] Comment on above: Performed By: #### T SH, CMP, T7, LIPID #### [facility] [address] [place] [address] Dr. Michelle Cali Albumin/Globulin [Mass ratio] 1.0 {ratio} Normal [facility] Comment on above: Performed By: #### T SH, CMP, T7, LIPID #### [facility] [address] [place] [address] Dr. Michelle Cali ALP [Catalytic activity/Vol] 65 U/L Normal 46-116 [facility] Comment on above: Performed By: #### T SH, CMP, T7, LIPID #### [facility] [address] [place] [address] Dr. Michelle Cali ALT [Catalytic activity/Vol] 17 U/L Normal 14-59 [facility] Comment on above: Performed By: #### T SH, CMP, T7, LIPID #### [facility] [address] [place] [address] Dr. Michelle Cali Anion gap [Moles/Vol] 12.2 mmol/L Normal [facility] Comment on above: Performed By: #### T SH, CMP, T7, LIPID #### [facility] [address] [place] [address] Dr. Michelle Cali AST [Catalytic activity/Vol] 15 U/L Normal 15-37 [facility] Comment on above: Performed By: #### T SH, CMP, T7, LIPID #### [facility] [address] [address] [address] Michelle Cali Bilirubin [Mass/Vol] 0.4 mg/dL Normal 0.2-1.0 [facility] Comment on above: Performed By: #### T SH, CMP, T7, LIPID #### [facility] [address] [address] [address] Michelle Cali Calcium [Mass/Vol] 9.4 mg/dL Normal 8.5-10.1 [facility] Comment on above: Performed By: #### T SH, CMP, T7, LIPID #### [facility] [address] [address] [address] Michelle Cali Chloride [Moles/Vol] 104 mmol/L Normal 98-107 [facility] Comment on above: Performed By: #### T SH, CMP, T7, LIPID #### [facility] [address] [place] [address] Dr. Michelle Cali CO2 [Moles/Vol] 27.7 mmol/L Normal 21.0-32.0 [facility] Comment on above: Performed By: #### T SH, CMP, T7, LIPID #### [facility] [address] [address] [address] Michelle Cali Creatinine [Mass/Vol] 0.63 mg/dL Normal 0.55-1.02 [facility] Comment on above: Performed By: #### T SH, CMP, T7, LIPID #### [facility] [address] [place] [address] Dr. Michelle Cali EGFR-AF GREENLANDIC >60 Normal >=[address] [facility] Comment on above: Performed By: #### T SH, CMP, T7, LIPID #### [facility] [address] [place] [address] Dr. Michelle Cali EGFR-NON AF GREENLANDIC >60 Normal >=60 [facility] Comment on above: Performed By: #### T SH, CMP, T7, LIPID #### [facility] [address] [place] [address] Dr. Michelle Cali Globulin (S) [Mass/Vol] 4.2 g/dL Normal [facility] Comment on above: Performed By: #### T SH, CMP, T7, LIPID #### [facility] [address] [address] [address] Michelle Cali Glucose [Mass/Vol] 83 mg/dL Normal 74-106 [facility] Comment on above: Performed By: #### T SH, CMP, T7, LIPID #### [facility] [address] [address] [address] Michelle Cali Potassium [Moles/Vol] 3.9 mmol/L Normal 3.5-5.1 [facility] Comment on above: Performed By: #### T SH, CMP, T7, LIPID #### [facility] [address] [address] [address] Michelle Cali Protein [Mass/Vol] 8.5 g/dL Critically high 6.4-8.2 [facility] Comment on above: Performed By: #### T SH, CMP, T7, LIPID #### [facility] [address] [address] [address] Michelle Cali Sodium [Moles/Vol] 140 mmol/L Normal 136-145 [facility] Comment on above: Performed By: #### T SH, CMP, T7, LIPID #### [facility] [address] [address] [address] Michelle Cali Urea nitrogen [Mass/Vol] 9.0 mg/dL Normal 7.0-18.0 [facility] Comment on above: Performed By: #### T SH, CMP, T7, LIPID #### [facility] [address] [place] [address] Dr. Michelle Cali Urea nitrogen/Creatinine [Mass ratio] 14.3 mg/mg Normal [facility] Comment on above: Performed By: #### T SH, CMP, T7, LIPID #### [facility] [address] [place] [address] Dr. Michelle Cali TSHon 09-18-2022 TSH 1.245 uIU/mL Normal 0.358-3.740 [facility] Comment on above: Performed By: #### T SH, CMP, T7, LIPID #### [facility] [address] [place], [place] [address] ABD/PELV W CONon [...] JEFFREY BEGUM Date: 2022-07-06 01:26 Normal [facility] CBC AUTO DIFFon 07-05-2022 BASO # 0.1 103/ul Normal 0.0-0.1 [facility] Comment on above: Performed By: #### C BC #### [facility] [address] [place], [place] [address] Dr. Michelle Cali Basophils/100 WBC (Bld) 0.9 % Normal 0.2-2.0 [facility] Comment on above: Performed By: #### C BC #### [facility] [address] [place], [place] [address] Dr. Michelle Cali EO # 0.1 103/ul Normal 0.0-0.7 [facility] Comment on above: Performed By: #### C BC #### [facility] [address] [place] [address] Dr. Michelle Cali Eosinophils/100 WBC (Bld) 1.0 % Normal 0.9-7.0 [facility] Comment on above: Performed By: #### C BC #### [facility] [address] [place] [address] Dr. Michelle Cali Erythrocyte distribution width (RBC) [Ratio] 12.5 % Normal 11.0-15.0 [facility] Comment on above: Performed By: #### C BC #### [facility] [address] [place] [address] Dr. Michelle Cali Hematocrit (Bld) [Volume fraction] 39.6 % Normal 36.0-48.0 [facility] Comment on above: Performed By: #### C BC #### [facility] [address] [place] [address] Dr. Michelle Cali Hemoglobin (Bld) [Mass/Vol] 13.6 g/dL Normal 12.0-16.0 [facility] Comment on above: Performed By: #### C BC #### [facility] [address] [place] [address] Dr. Michelle Cali IG # 0.02 10e3/ul Normal 0.00-0.03 [facility] Comment on above: Performed By: #### C BC #### [facility] [address] [place] [address] Dr. Michelle Cali IG % 0.2 % Normal 0.0-0.5 [facility] Comment on above: Performed By: #### C BC #### [facility] [address] [place] [address] Dr. Michelle Cali LYMPH # 4.0 103/ul Critically high 1.2-3.8 [facility] Comment on above: Performed By: #### C BC #### [facility] [address] [place] [address] Dr. Michelle Cali Lymphocytes/100 WBC (Bld) 44.0 % Normal 20.5-60.0 [facility] Comment on above: Performed By: #### C BC #### [facility] [address] [place] [address] Dr. Michelle Cali MANUAL DIFF REQ NO Normal [facility] Comment on above: Performed By: #### C BC #### [facility] [address] [place] [address] Dr. Michelle Cali MCH (RBC) [Entitic mass] 29.7 pg Normal 26.7-34.0 [facility] Comment on above: Performed By: #### C BC #### [facility] [address] [place] [address] Dr. Michelle Cali MCHC (RBC) [Mass/Vol] 34.3 g/dL Normal 29.9-35.2 [facility] Comment on above: Performed By: #### C BC #### [facility] [address] [place] [address] Dr. Michelle Cali MCV (RBC) [Entitic vol] 86.5 fL Normal 81.0-99.0 [facility] Comment on above: Performed By: #### C BC #### [facility] [address] [place] [address] Dr. Michelle Cali MONO # 0.6 103/ul Normal 0.3-0.8 [facility] Comment on above: Performed By: #### C BC #### [facility] [address] [place] [address] Dr. Michelle Cali Monocytes/100 WBC (Bld) 6.7 % Normal 1.7-12.0 [facility] Comment on above: Performed By: #### C BC #### [facility] [address] [place] [address] Dr. Michelle Cali NEUT # 4.2 103/ul Normal 1.4-6.5 [facility] Comment on above: Performed By: #### C BC #### [facility] [address] [place] [address] Dr. Michelle Cali Neutrophils/100 WBC (Bld) 47.2 % Normal 43.0-75.0 [facility] Comment on above: Performed By: #### C BC #### [facility] [address] [address] [address] Michelle Cali Platelet mean volume (Bld) [Entitic vol] 11.4 fL Normal 9.5-13.5 [facility] Comment on above: Performed By: #### C BC #### [facility] [address] [address] [address] Michelle Cali PLT 342 103/ul Normal 150-450 [facility] Comment on above: Performed By: #### C BC #### [facility] [address] [address] [address] Michelle Cali RBC 4.58 106/ul Normal 4.20-5.40 [facility] Comment on above: Performed By: #### C BC #### [facility] [address] [place] [address] Dr. Michelle Cali WBC 9.0 103/ul Normal 4.0-11.0 [facility] Comment on above: Performed By: #### C BC #### [facility] [address] [place] [address] Dr. Michelle Cali PREG HCG QUALon 07-05-2022 , QUAL Negative Normal NEGATIVE [facility] Comment on above: Performed By: #### P REG #### [facility] [address] [place] [address] Dr. Michelle Cali PROF 14(COMP METB)on 022 Albumin [Mass/Vol] 4.4 g/dL Normal 3.4-5.0 [facility] Comment on above: Performed By: #### C BC #### [facility] [address] [place] [address] Dr. Michelle Cali Albumin/Globulin [Mass ratio] 1.1 {ratio} Normal [facility] Comment on above: Performed By: #### C BC #### [facility] [address] [place] [address] Dr. Michelle Cali ALP [Catalytic activity/Vol] 82 U/L Normal 46-116 [facility] Comment on above: Performed By: #### C BC #### [facility] [address] [address] [address] Michelle Cali ALT [Catalytic activity/Vol] 22 U/L Normal 14-59 [facility] Comment on above: Performed By: #### C BC #### [facility] [address] [address] [address] Michelle Cali Anion gap [Moles/Vol] 9.3 mmol/L Normal [facility] Comment on above: Performed By: #### C BC #### [facility] [address] [address] [address] Michelle Cali AST [Catalytic activity/Vol] 17 U/L Normal 15-37 [facility] Comment on above: Performed By: #### C BC #### [facility] [address] [place] [address] Dr. Michelle Cali Bilirubin [Mass/Vol] 0.5 mg/dL Normal 0.2-1.0 [facility] Comment on above: Performed By: #### C BC #### [facility] [address] [place] [address] Dr. Michelle Cali Calcium [Mass/Vol] 9.1 mg/dL Normal 8.5-10.1 [facility] Comment on above: Performed By: #### C BC #### [facility] [address] [place] [address] Dr. Michelle Cali Chloride [Moles/Vol] 104 mmol/L Normal 98-107 [facility] Comment on above: Performed By: #### C BC #### [facility] [address] [place] [address] Dr. Michelle Cali CO2 [Moles/Vol] 26.8 mmol/L Normal 21.0-32.[address] [facility] Comment on above: Performed By: #### C BC #### [facility] [address] [place] [address] Dr. Michelle Cali Creatinine [Mass/Vol] 0.73 mg/dL Normal 0.55-1.02 [facility] Comment on above: Performed By: #### C BC #### [facility] [address] [place] [address] Dr. Michelle Cali EGFR-AF GREENLANDIC >60 Normal >=60 [facility] Comment on above: Performed By: #### C BC #### [facility] [address] [place] [address] Dr. Michelle Cali EGFR-NON AF GREENLANDIC >60 Normal >=60 [facility] Comment on above: Performed By: #### C BC #### [facility] [address] [address] [address] Michelle Cali Globulin (S) [Mass/Vol] 4.1 g/dL Normal [facility] Comment on above: Performed By: #### C BC #### [facility] [address] [place] [address] Dr. Michelle Cali Glucose [Mass/Vol] 84 mg/dL Normal 74-106 [facility] Comment on above: Performed By: #### C BC #### [facility] [address] [place] [address] Dr. Michelle Cali Potassium [Moles/Vol] 3.1 mmol/L Critically low 3.5-5.1 [facility] Comment on above: Performed By: #### C BC #### [facility] [address] [place] [address] Dr. Michelle Cali Protein [Mass/Vol] 8.5 g/dL Critically high 6.4-8.2 [facility] Comment on above: Performed By: #### C BC #### [facility] [address] [place] [address] Dr. Michelle Cali Sodium [Moles/Vol] 137 mmol/L Normal 136-145 [facility] Comment on above: Performed By: #### C BC #### [facility] [address] [place] [address] Dr. Michelle Cali Urea nitrogen [Mass/Vol] 13.0 mg/dL Normal 7.0-18.0 [facility] Comment on above: Performed By: #### C BC #### [facility] [address] [place] [address] Dr. Michelle Cali Urea nitrogen/Creatinine [Mass ratio] 17.8 mg/mg Normal [facility] Comment on above: Performed By: #### C BC #### [facility] [address] [address] [address] Michelle Cali HCG,Urineon 02-07-2021 Beta HCG ( test) Ql (U) Negative Normal [facility] Comment on above: Result Comment: PERF ORMED BY: [facility] [address] [place] [address] PATHOLOGIST STAND GRINDER WENDY TRUONG M.D. Performed By: #### U HCG #### [facility] [address] 02-07-2021 L Specimen: [id number] Received: 02/07/21 Status: YANNA Nguyen Num: [id number] Spec Type: Surgical Subm Dr: Ranjit Coe MD Tissues: A Breast Reduction - Mammoplasty (RIGHT BREAST TISSUE) B Breast Reduction - Mammoplasty (LEFT BREAST TISSUE) Procedures: [place] Stain/8, Gross/Micro L4/2 Patient Age/Sex Location Account Attending Physician Mason[place]atha [place] [id number] Ranjit Coe MD SPEC NUM: [id number] RECD: 02/07/21 STATUS: YANNA NGUYEN NUM: [id number] YOUNG: 02/07/21- SUBM DR: Ranjit Coe MD ENTERED: 02/07/[address] [facility] [address]: FAHEEM TYPE: Surgical DEPT: S ENTERED BY: [id number] RECV BY: [id number] ORDERED: HE Stain/8, Gross/Micro L4/2 ORDERED: HE [...] obvious masses or lesions are grossly identified. Alcohol Law Enforcement Agent sections are submitted in four cassettes labeled [...] tissue. No obvious masses or lesions Specimen: [id number] Received: 02/07/21 Status: YANNA Nguyen Num: [id number] Spec Type: Surgical Subm Dr: Ranjit Coe MD Tissues: A Breast Reduction - Mammoplasty (RIGHT BREAST TISSUE) B Breast Reduction - Mammoplasty (LEFT BREAST TISSUE) Procedures: [place] Stain/8, Gunner/Samanta L4/2 Patient: Latha Steel [id number] (Continued) Specimen: [id number] Received: 02/07/21 (Continued) Gross Description (Continued) Signed (signature on file) Wendy Truong MD 02/08/21 1713 Specimen: [id number] Received: 02/07/21 Status: YANNA Nguyen Num: [id number] Spec Type: Surgical Subm Dr: Ranjit Coe MD Tissues: A Breast Reduction - Mammoplasty (RIGHT BREAST TISSUE) B Breast Reduction - Mammoplasty (LEFT BREAST TISSUE) Procedures: HE Stain/8, Gross/Micro L4/2 Patient: Latha Steel [id number] (Continued) Specimen: [id number] Received: 02/07/21 (Continued) Gross Description (Continued) are grossly identified. Alcohol Law Enforcement Agent sections are submitted in four cassettes labeled B1- B4. (ALMA/DUYEN) Microscopic Description A. Four glass slides with H E stained material have been examined. The microscopic findings support the above pathologic diagnosis. B. Four glass slides with H E stained material have been examined. The microscopic findings support the above pathologic diagnosis. [id number] Specimen: [id number] Received: 02/07/21 Status: YANNA Nguyen Num: [id number] Spec Type: Surgical Subm Dr: Ranjit Coe MD Tissues: A Breast Reduction - Mammoplasty (RIGHT BREAST TISSUE) B Breast Reduction - Mammoplasty (LEFT BREAST TISSUE) Procedures: HE Stain/8, Gross/Micro L4/2 Patient: Latha Steel [id number] (Continued) (more content not included)... Normal [facility] SARS-CoV-2 (COVID-19) RNA LALITO+probe Ql (Unsp spec) Negative Normal Negative [facility] Comment on above: Order Comment: Healt hcare Worker?: N Result Comment: Testing for SARS-CoV-2 by RT-PCR This test was developed and its performance characteristics determined by [employer] and validated at the [facility]. This test has not been FDA [...] is terminated or revoked sooner. PERFORMED BY: [facility] [address] [place] [address] PATHOLOGIST STAND GRINDER WENDY TRUONG M.D. Performed By: #### C OVID 19 [facility] #### [facility] [address] Summary Purpose Family History No Family History Records FoundNo Family History Records Found Advance Directives No Advanced Directives Records FoundNo Advanced Directives Records Found Additional Source Comments INFORMATION SOURCE (unrecogn ized section and content) DATE CREATED AUTHOR 08/11/2021 [facility] DATE CREATED AUTHOR AUTHOR'S ORGANIZ ATION 12/09/2022 [facility] RECORDS PERTAINING TO PATIENTS WHO ARE [...] BE BASED ON THE PRIMARY CLINICAL RECORDS. [employer] provides no warranty or guarantee of the accuracy or completeness of information in this document.
== END 2023-12-18 08:27 | disposition home or self-care (01) ==
LOC: NOMS 08:26
PROVIDERS: PCP Family Medicine; Visit Provider Obstetrics & Gynecology
DX: Z34.91 Encounter for supervision of normal pregnancy, unspecified, first trimester (principal); Z3A.10 10 weeks gestation of pregnancy; N92.6 Irregular menstruation, unspecified
CPT/HCPCS: 76817

== ENCOUNTER 2023-12-18 11:46 | Outpatient (OUT) | payer BC, SELFPAY ==
[2023-12-18 12:16] LABS: Basophils Absolute Auto 0.1 10^3/uL (0.0-0.1); Basophils Percent Auto 0.5 % (0.2-2.0); Eosinophils Percent Auto 0.1 % (0.9-7.0); Hematocrit 36.8 % (36.0-48.0); Hemoglobin 12.6 g/dL (12.0-16.0); Immature Granulocytes Abs Auto 0.03 10^3/uL (0.00-0.03); Immature Granulocytes Pct Auto 0.3 % (0.0-0.5); Lymphocytes Absolute Auto 2.6 10^3/uL (1.2-3.8); Lymphocytes Percent Auto 22.2 % (20.5-60.0); Mean Corpuscular HGB Conc 34.2 g/dL (29.9-35.2); Mean Corpuscular Hemoglobin 29.8 pg (26.7-34.0); Mean Platelet Volume 10.9 fL (9.5-13.5); Monocytes Absolute Auto 0.5 10^3/uL (0.3-0.8); Neutrophils Absolute Auto 8.6 10^3/uL (1.4-6.5); Neutrophils Percent Auto 72.9 % (43.0-75.0); Platelet Count 296 10^3/uL (150-450); Red Blood Count 4.23 10^6/uL (4.20-5.40); Red Cell Distribution Width 12.1 % (11.0-15.0); White Blood Count 11.7 10^3/uL (4.0-11.0)
[2023-12-18 12:31] LABS: Estimated Average Glucose 94 mg/dL; Glycohemoglobin A1C 4.9 % (4.5-6.2)
[2023-12-19 06:09] LABS: Rubella Antibodies, IgG 5.47 index (Immune >0.99)
[2023-12-19 08:12] LABS: HBsAg Screen Negative (Negative); HCV Ab Non Reactive (Non Reactive); HIV Ab/p24 Ag Screen Non Reactive (Non Reactive)
[2023-12-19 12:11] LABS: Rapid Plasma Reagin, Quant Non Reactive titer (NonRea<1:1)
== END 2023-12-18 11:47 | disposition home or self-care (01) ==
LOC: LAB 11:47
PROVIDERS: PCP Family Medicine; Visit Provider Obstetrics & Gynecology
DX: N92.6 Irregular menstruation, unspecified (principal); Z34.91 Encounter for supervision of normal pregnancy, unspecified, first trimester; Z3A.10 10 weeks gestation of pregnancy
CPT/HCPCS: 36415; 76817; 83036; 85025; 86592; 86762; 86803; 86850; 86900; 86901; 87086; 87150; 87186; 87340; 87389

== ENCOUNTER 2023-12-22 13:08 | Outpatient (OUT) | payer BC, SELFPAY ==
[2023-12-22 13:34] LABS: BOX Test Sent Out DONE
== END 2023-12-22 13:09 | disposition home or self-care (01) ==
LOC: LAB 13:09
PROVIDERS: PCP Family Medicine; Visit Provider Obstetrics & Gynecology
DX: Z34.80 Encounter for supervision of other normal pregnancy, unspecified trimester (principal)
CPT/HCPCS: 36415

== ENCOUNTER 2024-03-02 14:38 | Outpatient (OUT) | payer BC, SELFPAY ==
--- NOTE | 2024-03-02 14:41 | US_ITS ---
[address] [address] Patient Name: JAMES STEEL MRN: [id number] date: 2000 Sex: F Assigned Patient Location: [facility] Current Patient Location: [facility] Accession/Order Number: [id number] Exam Date: 03/02/2024 14:41 Report Date: 03/02/2024 16:03 At the request of: CELINE MEZA Procedure: US OB anatomy EXAMINATION: US OB anatomy, US OB cervical length HISTORY: ANATOMY COMPARISON: No relevant comparison available. TECHNIQUE: Transabdominal sonographic examination was performed for obstetrical and evaluation. FINDINGS: Number: 1 Heart Rate: 138 bpm H.B. /min Amniotic Fluid Volume: Subjectively normal Placental Location: Anterior. The placental edge is 7.0 cm from the internal cervical os Cervix Length: 4.32 cm , closed Normal anatomy: Lateral ventricles, cerebellum, posterior fossa, nose, lips, orbits, four-chamber heart, RVOT, LVOT, diaphragm, stomach, kidneys, abdominal cord insertion, bladder, umbilical arteries, three-vessel cord, spine, extremities BIOMETRY: BPD: 4.49 cm; 19 weeks 4 days; 26.30 % HC: 17.95 cm; 20 weeks 3 days; 53.50 % AC: 15.31 cm; 20 weeks 4 days; 56.80 % FL: 3.39 cm; 20 weeks 5 days; 60.30 % EFW:330 g; 67 %, 13 ounces FL/AC: 22.14 FL/BPD: 75.50 HC/AC: 1.17 GESTATIONAL AGE: Age by EDC: 20 weeks 1 day Age by current US: 20 weeks 2 days DEN by current US: 2024-07-18 DEN by EDC: 2024-07-19 US/US OB anatomy IMPRESSION: Normal anatomy scan Closed cervix measuring 4.3 cm in length *Reference: [employer] Practice Guideline for the performance of Obstetric Ultrasound Examinations, April 19, 2007. Electronically authenticated by: JULISA ALVAREZ Date: 03/02/2024 16:03
--- NOTE | 2024-03-02 14:41 | US_ITS ---
[address] [address] Patient Name: JAMES STEEL MRN: [id number] date: 2000 Sex: F Assigned Patient Location: [facility] Current Patient Location: [facility] Accession/Order Number: [id number] Exam Date: 03/02/2024 14:41 Report Date: 03/02/2024 16:03 At the request of: CELINE MEZA Procedure: US OB cervical length EXAMINATION: US OB anatomy, US OB cervical length HISTORY: ANATOMY COMPARISON: No relevant comparison available. TECHNIQUE: Transabdominal sonographic examination was performed for obstetrical and evaluation. FINDINGS: Number: 1 Heart Rate: 138 bpm H.B. /min Amniotic Fluid Volume: Subjectively normal Placental Location: Anterior. The placental edge is 7.0 cm from the internal cervical os Cervix Length: 4.32 cm , closed Normal anatomy: Lateral ventricles, cerebellum, posterior fossa, nose, lips, orbits, four-chamber heart, RVOT, LVOT, diaphragm, stomach, kidneys, abdominal cord insertion, bladder, umbilical arteries, three-vessel cord, spine, extremities BIOMETRY: BPD: 4.49 cm; 19 weeks 4 days; 26.30 % HC: 17.95 cm; 20 weeks 3 days; 53.50 % AC: 15.31 cm; 20 weeks 4 days; 56.80 % FL: 3.39 cm; 20 weeks 5 days; 60.30 % EFW:330 g; 67 %, 13 ounces FL/AC: 22.14 FL/BPD: 75.50 HC/AC: 1.17 GESTATIONAL AGE: Age by EDC: 20 weeks 1 day Age by current US: 20 weeks 2 days DEN by current US: 2024-07-18 DEN by EDC: 2024-07-19 US/US OB cervical length IMPRESSION: Normal anatomy scan Closed cervix measuring 4.3 cm in length *Reference: [employer] Practice Guideline for the performance of Obstetric Ultrasound Examinations, April 19, 2007. Electronically authenticated by: JULISA ALVAREZ Date: 03/02/2024 16:03
--- OUTSIDE RECORDS SUMMARY | 2024-03-02 14:56 | XMS_ITS | CCD ---
Author Organization [facility] [place] [facility] Care Team Providers Care Director Clinical Information Services Name Role Phone MARKER ., DR STINSON [...] [employer] Unavailable JEFFREY BEGUM Consulting Unavailable ROOSEVELT CHIN Attending Unavailable Problems Active Problems Problem Classification Problem [...] CK [Catalytic activity/Vol] 102 U/L Normal 26-192 [facility] Comment on above: Performed By: #### C BC #### [facility] [address] [place] [address] Dr. Michelle Cali CK.MB [Mass/Vol] 0.74 ng/mL Normal <=3.60 [facility] Comment on above: Performed By: #### C BC #### [facility] [address] [place] [address] Dr. Michelle Cali HSTROP 7.7 pg/mL Normal 4.0-51.3 [facility] Comment on above: Result Comment: CUT- OFF POINTS HAVE BEEN ESTABLISHED BASED ON THE FOURTH UNIVERSAL DEFINITIONS OF MYOCARDIAL INFARCTION. THE UPPER REFERENCE LIMIT (URL) OF TROPONIN, DEFINED THE 99TH PERCENTILE OF cTnI DISTRIBUTION IN A REFERENCE POPULATION, HAS BEEN CONFIRMED THE DECISION THRESHOLD FOR SC DIAGNOSIS. Performed By: #### C BC #### [facility] [address] [address] [address] Michelle Cali SHAHNAZ 24 ng/mL Normal 9-82 [facility] Comment on above: Performed By: #### C BC #### [facility] [address] [place] [address] Dr. Michelle Cali CBC AUTO DIFFon 12-04-2022 BASO # 0.1 103/ul Normal 0.0-0.1 [facility] Comment on above: Performed By: #### C BC #### [facility] [address] [address] [address] Michelle Cali Basophils/100 WBC (Bld) 0.9 % Normal 0.2-2.0 [facility] Comment on above: Performed By: #### C BC #### [facility] [address] [place] [address] Dr. Michelle Cali EO # 0.1 103/ul Normal 0.0-0.7 [facility] Comment on above: Performed By: #### C BC #### [facility] [address] [place] [address] Dr. Michelle Cali Eosinophils/100 WBC (Bld) 0.6 % Critically low 0.9-7.0 [facility] Comment on above: Performed By: #### C BC #### [facility] [address] [place] [address] Dr. Michelle Cali Erythrocyte distribution width (RBC) [Ratio] 12.3 % Normal 11.0-15.0 [facility] Comment on above: Performed By: #### C BC #### [facility] [address] [place] [address] Dr. Michelle Cali Hematocrit (Bld) [Volume fraction] 40.3 % Normal 36.0-48.0 [facility] Comment on above: Performed By: #### C BC #### [facility] [address] [place] [address] Dr. Michelle Cali Hemoglobin (Bld) [Mass/Vol] 13.2 g/dL Normal 12.0-16.0 [facility] Comment on above: Performed By: #### C BC #### [facility] [address] [place] [address] Dr. Michelle Cali IG # 0.03 10e3/ul Normal 0.00-0.03 [facility] Comment on above: Performed By: #### C BC #### [facility] [address] [place] [address] Dr. Michelle Cali IG % 0.3 % Normal 0.0-0.5 [facility] Comment on above: Performed By: #### C BC #### [facility] [address] [place] [address] Dr. Michelle Cali LYMPH # 4.1 103/ul Critically high 1.2-3.8 [facility] Comment on above: Performed By: #### C BC #### [facility] [address] [place] [address] Dr. Michelle Cali Lymphocytes/100 WBC (Bld) 39.9 % Normal 20.5-60.0 [facility] Comment on above: Performed By: #### C BC #### [facility] [address] [place] [address] Dr. Michelle Cali MANUAL DIFF REQ NO Normal [facility] Comment on above: Performed By: #### C BC #### [facility] [address] [place] [address] Dr. Michelle Cali MCH (RBC) [Entitic mass] 29.8 pg Normal 26.7-34.0 [facility] Comment on above: Performed By: #### C BC #### [facility] [address] [place] [address] Dr. Michelle Cali MCHC (RBC) [Mass/Vol] 32.8 g/dL Normal 29.9-35.2 [facility] Comment on above: Performed By: #### C BC #### [facility] [address] [place] [address] Dr. Michelle Cali MCV (RBC) [Entitic vol] 91.0 fL Normal 81.0-99.0 [facility] Comment on above: Performed By: #### C BC #### [facility] [address] [place] [address] Dr. Michelle Cali MONO # 0.5 103/ul Normal 0.3-0.8 [facility] Comment on above: Performed By: #### C BC #### [facility] [address] [place] [address] Dr. Michelle Cali Monocytes/100 WBC (Bld) 5.2 % Normal 1.7-12.0 [facility] Comment on above: Performed By: #### C BC #### [facility] [address] [place] [address] Dr. Michelle Cali NEUT # 5.4 103/ul Normal 1.4-6.5 [facility] Comment on above: Performed By: #### C BC #### [facility] [address] [address] [address] Michelle Cali Neutrophils/100 WBC (Bld) 53.1 % Normal 43.0-75.0 [facility] Comment on above: Performed By: #### C BC #### [facility] [address] [address] [address] Michelle Cali Platelet mean volume (Bld) [Entitic vol] 10.6 fL Normal 9.5-13.5 [facility] Comment on above: Performed By: #### C BC #### [facility] [address] [place] [address] Dr. Michelle Cali PLT 310 103/ul Normal 150-450 [facility] Comment on above: Performed By: #### C BC #### [facility] [address] [place] [address] Dr. Michelle Cali RBC 4.43 106/ul Normal 4.20-5.40 [facility] Comment on above: Performed By: #### C BC #### [facility] [address] [place] [address] Dr. Michelle Cali WBC 10.2 103/ul Normal 4.0-11.0 [facility] Comment on above: Performed By: #### C BC #### [facility] [address] [place] [address] Dr. Michelle Cali D-DIMERon 12-04-2022 D-DIMER 0.19 mg/L FEU Normal <=0.[address] [facility] Comment on above: Performed By: #### C BC #### [facility] [address] [place] [address] Dr. Michelle Cali D-DIMER COMMENTS SEE BELOW Normal [facility] Comment on above: Result Comment: Incr [...] hospitalization. Performed By: #### C BC #### [facility] [address] [place] [address] Dr. Michelle HATFIELD URINE PROFILEon 3 Bilirubin Ql (U) Negative Normal NEGATIVE [facility] Comment on above: Performed By: #### P REGU, ERUR #### [facility] [address] [place] [address] Dr. Michelle Cali Clarity (U) CLEAR Normal CLEAR [facility] Comment on above: Performed By: #### P REGU, ERUR #### [facility] [address] [place] [address] Dr. Michelle Cali Color (U) YELLOW Normal YELLOW [facility] Comment on above: Performed By: #### P REGU, ERUR #### [facility] [address] [place] [address] Dr. Michelle COOND A micrscopic examination will be performed if indicated. Normal [facility] Comment on above: Performed By: #### P REGU, ERUR #### [facility] [address] [place] [address] Dr. Michelle Cali Glucose Ql (U) Negative Normal NEGATIVE [facility] Comment on above: Performed By: #### P REGU, ERUR #### [facility] [address] [place] [address] Dr. Michelle Cali Hemoglobin Ql (U) Negative Normal NEGATIVE [facility] Comment on above: Performed By: #### P REGU, ERUR #### [facility] [address] [place] [address] Dr. Michelle Cali Ketones Ql (U) Negative Normal NEGATIVE [facility] Comment on above: Performed By: #### P REGU, ERUR #### [facility] [address] [place] [address] Dr. Michelle Cali LEUKOCYTES Negative Normal NEGATIVE [facility] Comment on above: Performed By: #### P REGU, ERUR #### [facility] [address] [address] [address] Michelle Cali Nitrite Ql (U) Negative Normal NEGATIVE [facility] Comment on above: Performed By: #### P REGU, ERUR #### [facility] [address] [address] [address] Michelle Cali pH (U) 6.0 [pH] Normal 5-9 [facility] Comment on above: Performed By: #### P REGU, ERUR #### [facility] [address] [address] [address] Michelle Cali SPEC GRAVITY >=1.030 Abnormal 1.005-<=1.025 [facility] Comment on above: Performed By: #### P REGU, ERUR #### [facility] [address] [place] [address] Dr. Michelle Cali UA PROTEIN TRACE Normal NEGATIVE/ TRACE [facility] Comment on above: Performed By: #### P REGU, ERUR #### [facility] [address] [address] [address] Michelle Cali UR MICRO IND NOT INDICATED Normal [facility] Comment on above: Performed By: #### P REGU, ERUR #### [facility] [address] [place] [address] Dr. Michelle Cali Urobilinogen Qn (U) 0.2 {Kalyan'U}/dL Normal 0.2 - 1. 0 [facility] Comment on above: Performed By: #### P REGU, ERUR #### [facility] [address] [place] [address] Dr. Michelle Cali URon 12-04-2022 , QUAL Negative Normal NEGATIVE [facility] Comment on above: Performed By: #### P REGU, ERUR #### [facility] [address] [place] [address] Dr. Michelle Cali PROF 14(COMP METB)on 023 Albumin [Mass/Vol] 3.9 g/dL Normal 3.4-5.0 [facility] Comment on above: Performed By: #### C BC #### [facility] [address] [address] [address] Michelle Cali Albumin/Globulin [Mass ratio] 1.0 {ratio} Normal [facility] Comment on above: Performed By: #### C BC #### [facility] [address] [address] [address] Michelle Cali ALP [Catalytic activity/Vol] 69 U/L Normal 46-116 [facility] Comment on above: Performed By: #### C BC #### [facility] [address] [address] [address] Michelle Cali ALT [Catalytic activity/Vol] 13 U/L Critically low 14-59 [facility] Comment on above: Performed By: #### C BC #### [facility] [address] [place] [address] Dr. Michelle Cali Anion gap [Moles/Vol] 13.6 mmol/L Normal [facility] Comment on above: Performed By: #### C BC #### [facility] [address] [place] [address] Dr. Michelle Cali AST [Catalytic activity/Vol] 11 U/L Critically low 15-37 [facility] Comment on above: Performed By: #### C BC #### [facility] [address] [place] [address] Dr. Michelle Cali Bilirubin [Mass/Vol] 0.3 mg/dL Normal 0.2-1.0 [facility] Comment on above: Performed By: #### C BC #### [facility] [address] [place] [address] Dr. Michelle Cali Calcium [Mass/Vol] 9.0 mg/dL Normal 8.5-10.1 [facility] Comment on above: Performed By: #### C BC #### [facility] [address] [place] [address] Dr. Michelle Cali Chloride [Moles/Vol] 105 mmol/L Normal 98-107 [facility] Comment on above: Performed By: #### C BC #### [facility] [address] [place], [place] [id number] Dr. Michelle Cali CO2 [Moles/Vol] 26.8 mmol/L Normal 21.0-32.0 [facility] Comment on above: Performed By: #### C BC #### [facility] [address] [place] [address] Dr. Michelle Cali Creatinine [Mass/Vol] 0.82 mg/dL Normal 0.55-1.02 [facility] Comment on above: Performed By: #### C BC #### [facility] [address] [place] [address] Dr. Michelle Cali EGFR-AF SLOVAK >60 Normal >=60 [facility] Comment on above: Performed By: #### C BC #### [facility] [address] [place] [address] Dr. Michelle Cali EGFR-NON AF SLOVAK >60 Normal >=60 [facility] Comment on above: Performed By: #### C BC #### [facility] [address] [place] [address] Dr. Michelle Cali Globulin (S) [Mass/Vol] 3.8 g/dL Normal [facility] Comment on above: Performed By: #### C BC #### [facility] [address] [place] [address] Dr. Michelle Cali Glucose [Mass/Vol] 104 mg/dL Normal 74-106 [facility] Comment on above: Performed By: #### C BC #### [facility] [address] [place] [address] Dr. Michelle Cali Potassium [Moles/Vol] 3.4 mmol/L Critically low 3.5-5.1 [facility] Comment on above: Performed By: #### C BC #### [facility] [address] [place] [address] Dr. Michelle Cali Protein [Mass/Vol] 7.7 g/dL Normal 6.4-8.2 [facility] Comment on above: Performed By: #### C BC #### [facility] [address] [place] [address] Dr. Michelle Cali Sodium [Moles/Vol] 142 mmol/L Normal 136-145 [facility] Comment on above: Performed By: #### C BC #### [facility] [address] [place] [address] Dr. Michelle Cali Urea nitrogen [Mass/Vol] 9.0 mg/dL Normal 7.0-18.0 [facility] Comment on above: Performed By: #### C BC #### [facility] [address] [place] [address] Dr. Michelle Cali Urea nitrogen/Creatinine [Mass ratio] 11.0 mg/mg Normal [facility] Comment on above: Performed By: #### C BC #### [facility] [address] [place] [address] Dr. Michelle Cali TSHon 12-04-2022 TSH 6.358 uIU/mL Critically high 0.358-3.740 [facility] Comment on above: Performed By: #### C BC #### [facility] [address] [place] [address] Dr. Michelle Cali INSULINon 09-19-2022 Insulin 6.8 uIU/mL Normal 2.6-24.9 [facility] Comment on above: Performed By: #### C BC #### [facility] [address] [place] [address] Dr. Michelle Cali CBC AUTO DIFFon 09-18-2022 BASO # 0.1 103/ul Normal 0.0-0.1 [facility] Comment on above: Performed By: #### C BC #### [facility] [address] [place] [address] Dr. Michelle Cali Basophils/100 WBC (Bld) 0.8 % Normal 0.2-2.0 [facility] Comment on above: Performed By: #### C BC #### [facility] [address] [place] [address] Dr. Michelle Cali EO # 0.1 103/ul Normal 0.0-0.7 [facility] Comment on above: Performed By: #### C BC #### [facility] [address] [place] [address] Dr. Michelle Cali Eosinophils/100 WBC (Bld) 0.8 % Critically low 0.9-7.0 [facility] Comment on above: Performed By: #### C BC #### [facility] [address] [place] [address] Dr. Michelle Cali Erythrocyte distribution width (RBC) [Ratio] 12.4 % Normal 11.0-15.0 [facility] Comment on above: Performed By: #### C BC #### [facility] [address] [place] [address] Dr. Michelle Cali Hematocrit (Bld) [Volume fraction] 41.6 % Normal 36.0-48.0 [facility] Comment on above: Performed By: #### C BC #### [facility] [address] [place] [address] Dr. Michelle Cali Hemoglobin (Bld) [Mass/Vol] 14.3 g/dL Normal 12.0-16.0 [facility] Comment on above: Performed By: #### C BC #### [facility] [address] [place] [address] Dr. Michelle Cali IG # 0.03 10e3/ul Normal 0.00-0.03 [facility] Comment on above: Performed By: #### C BC #### [facility] [address] [place] [address] Dr. Michelle Cali IG % 0.3 % Normal 0.0-0.5 [facility] Comment on above: Performed By: #### C BC #### [facility] [address] [place] [address] Dr. Michelle Cali LYMPH # 3.1 103/ul Normal 1.2-3.8 [facility] Comment on above: Performed By: #### C BC #### [facility] [address] [place] [address] Dr. Michelle Cali Lymphocytes/100 WBC (Bld) 32.8 % Normal 20.5-60.0 [facility] Comment on above: Performed By: #### C BC #### [facility] [address] [place] [address] Dr. Michelle Cali MANUAL DIFF REQ NO Normal [facility] Comment on above: Performed By: #### C BC #### [facility] [address] [place] [address] Dr. Michelle Cali MCH (RBC) [Entitic mass] 29.5 pg Normal 26.7-34.0 [facility] Comment on above: Performed By: #### C BC #### [facility] [address] [place] [address] Dr. Michelle Cali MCHC (RBC) [Mass/Vol] 34.4 g/dL Normal 29.9-35.2 [facility] Comment on above: Performed By: #### C BC #### [facility] [address] [place] [address] Dr. Michelle Cali MCV (RBC) [Entitic vol] 86.0 fL Normal 81.0-99.0 [facility] Comment on above: Performed By: #### C BC #### [facility] [address] [place] [address] Dr. Michelle Cali MONO # 0.5 103/ul Normal 0.3-0.8 [facility] Comment on above: Performed By: #### C BC #### [facility] [address] [place] [address] Dr. Michelle Cali Monocytes/100 WBC (Bld) 5.6 % Normal 1.7-12.0 [facility] Comment on above: Performed By: #### C BC #### [facility] [address] [place] [address] Dr. Michelle Cali NEUT # 5.7 103/ul Normal 1.4-6.5 [facility] Comment on above: Performed By: #### C BC #### [facility] [address] [place] [address] Dr. Michelle Cali Neutrophils/100 WBC (Bld) 59.7 % Normal 43.0-75.0 [facility] Comment on above: Performed By: #### C BC #### [facility] [address] [place] [address] Dr. Michelle Cali Platelet mean volume (Bld) [Entitic vol] 10.3 fL Normal 9.5-13.5 [facility] Comment on above: Performed By: #### C BC #### [facility] [address] [place] [address] Dr. Michelle Cali PLT 319 103/ul Normal 150-450 [facility] Comment on above: Performed By: #### C BC #### [facility] [address] [place] [address] Dr. Michelle Cali RBC 4.84 106/ul Normal 4.20-5.40 [facility] Comment on above: Performed By: #### C BC #### [facility] [address] [place] [address] Dr. Michelle Cali WBC 9.5 103/ul Normal 4.0-11.0 [facility] Comment on above: Performed By: #### C BC #### [facility] [address] [place] [address] Dr. Michelle Cali FREE THYROXINE INDEX T7on FTI 2.36 Normal 1.30-4.50 [facility] Comment on above: Performed By: #### T SH, CMP, T7, LIPID #### [facility] [address] [place] [address] Dr. Michelle Cali T3U 31.0 % Normal 30.0-39.0 [facility] Comment on above: Performed By: #### T SH, CMP, T7, LIPID #### [facility] [address] [place] [address] Dr. Michelle Cali T4 [Mass/Vol] 7.60 ug/dL Normal 4.80-13.[address] [facility] Comment on above: Performed By: #### T SH, CMP, T7, LIPID #### [facility] [address] [place] [address] Dr. Michelle Cali GLYCOHEMOGLOBIN A1Con 2022 ADA RECOMMENDATION SEE BELOW Normal [facility] Comment on above: Result Comment: ADA RECOMMENDED LIMIT 4.0 - 6.0 ADA THERAPEUTIC TARGET < 7.0 ACTION SUGGESTED > 7.0 Performed By: #### C BC #### [facility] [address] [address] [address] Michelle Cali Glucose [Mass/Vol] 105 mg/dL Normal [facility] Comment on above: Performed By: #### C BC #### [facility] [address] [address] [address] Michelle Cali HbA1c (Bld) [Mass fraction] 5.3 % Normal 4.5-6.2 [facility] Comment on above: Performed By: #### C BC #### [facility] [address] [address] [address] Michelle Cali IRONon 09-18-2022 Iron [Mass/Vol] 80.0 ug/dL Normal 50.0-170.0 [facility] Comment on above: Performed By: #### I ABIGAIL #### [facility] [address] [place] [address] Dr. Michelle Cali LIPID PROFILEon 09-18-2022 CHOL-HDL RATIO NORM SEE BELOW Normal [facility] Comment on above: Result Comment: 3.3 - 4.4 LOW RISK 4.4 - 7.1 AVERAGE RISK 7.1 - 11.0 MODERATE RISK >11.0 HIGH RISK Performed By: #### T SH, CMP, T7, LIPID #### [facility] [address] [place] [address] Dr. Michelle Cali Cholesterol [Mass/Vol] 175 mg/dL Normal <=200 [facility] Comment on above: Performed By: #### T SH, CMP, T7, LIPID #### [facility] [address] [address] [address] Michelle Cali Cholesterol in HDL [Mass/Vol] 72 mg/dL Critically high 40-60 [facility] Comment on above: Performed By: #### T SH, CMP, T7, LIPID #### [facility] [address] [place] [address] Dr. Michelle Cali Cholesterol in LDL [Mass/Vol] 85.8 mg/dL Normal [facility] Comment on above: Performed By: #### T SH, CMP, T7, LIPID #### [facility] [address] [place] [address] Dr. Michelle Cali Cholesterol.total/Cho lesterol in HDL [Mass ratio] 2.4 {ratio} Normal [facility] Comment on above: Performed By: #### T SH, CMP, T7, LIPID #### [facility] [address] [address] [address] Michelle Cali HDL NORMAL > or = 60 mg/dl - LOW CARDIOVASCULAR RISK <40 mg/dl - HIGH CARDIOVASCULAR RISK Normal [facility] Comment on above: Performed By: #### T SH, CMP, T7, LIPID #### [facility] [address] [address] [address] Michelle Cali LDL CALC NORMAL SEE BELOW Normal [facility] Comment on above: Result Comment: <100 mg/dl OPTIMAL 100 - 129 mg/dl NEAR OR ABOVE OPTIMAL 130 - 159 mg/dl BORDERLINE HIGH 160 - 189 mg/dl HIGH >190 mg/dl VERY HIGH Performed By: #### T SH, CMP, T7, LIPID #### [facility] [address] [address] [address] Michelle Cali Triglyceride [Mass/Vol] 86 mg/dL Normal <=150 [facility] Comment on above: Performed By: #### T SH, CMP, T7, LIPID #### [facility] [address] [address] [address] Michelle Cali VLDL CALC 17.2 mg/dL Normal [facility] Comment on above: Performed By: #### T SH, CMP, T7, LIPID #### [facility] [address] [place] [address] Dr. Michelle Cali PROF 14(COMP METB)on 023 Albumin [Mass/Vol] 4.3 g/dL Normal 3.4-5.0 [facility] Comment on above: Performed By: #### T SH, CMP, T7, LIPID #### [facility] [address] [place] [address] Dr. Michelle Cali Albumin/Globulin [Mass ratio] 1.0 {ratio} Normal [facility] Comment on above: Performed By: #### T SH, CMP, T7, LIPID #### [facility] [address] [place] [address] Dr. Michelle Cali ALP [Catalytic activity/Vol] 65 U/L Normal 46-116 [facility] Comment on above: Performed By: #### T SH, CMP, T7, LIPID #### [facility] [address] [address] [address] Michelle Cali ALT [Catalytic activity/Vol] 17 U/L Normal 14-59 [facility] Comment on above: Performed By: #### T SH, CMP, T7, LIPID #### [facility] [address] [address] [address] Michelle Cali Anion gap [Moles/Vol] 12.2 mmol/L Normal [facility] Comment on above: Performed By: #### T SH, CMP, T7, LIPID #### [facility] [address] [place] [address] Dr. Michelle Cali AST [Catalytic activity/Vol] 15 U/L Normal 15-37 [facility] Comment on above: Performed By: #### T SH, CMP, T7, LIPID #### [facility] [address] [place] [address] Dr. Michelle Cali Bilirubin [Mass/Vol] 0.4 mg/dL Normal 0.2-1.0 [facility] Comment on above: Performed By: #### T SH, CMP, T7, LIPID #### [facility] [address] [place] [address] Dr. Michelle Cali Calcium [Mass/Vol] 9.4 mg/dL Normal 8.5-10.1 [facility] Comment on above: Performed By: #### T SH, CMP, T7, LIPID #### [facility] [address] [place] [address] Dr. Michelle Cali Chloride [Moles/Vol] 104 mmol/L Normal 98-107 [facility] Comment on above: Performed By: #### T SH, CMP, T7, LIPID #### [facility] [address] [address] [address] Michelle Cali CO2 [Moles/Vol] 27.7 mmol/L Normal 21.0-32.0 [facility] Comment on above: Performed By: #### T SH, CMP, T7, LIPID #### [facility] [address] [address] [address] Michelle Cali Creatinine [Mass/Vol] 0.63 mg/dL Normal 0.55-1.02 [facility] Comment on above: Performed By: #### T SH, CMP, T7, LIPID #### [facility] [address] [address] [address] Michelle Cali EGFR-AF SLOVAK >60 Normal >=60 [facility] Comment on above: Performed By: #### T SH, CMP, T7, LIPID #### [facility] [address] [address] [address] Michelle Cali EGFR-NON AF SLOVAK >60 Normal >=60 [facility] Comment on above: Performed By: #### T SH, CMP, T7, LIPID #### [facility] [address] [address] [address] Michelle Cali Globulin (S) [Mass/Vol] 4.2 g/dL Normal [facility] Comment on above: Performed By: #### T SH, CMP, T7, LIPID #### [facility] [address] [address] [address] Michelle Cali Glucose [Mass/Vol] 83 mg/dL Normal 74-106 [facility] Comment on above: Performed By: #### T SH, CMP, T7, LIPID #### [facility] [address] [address] [address] Michelle Cali Potassium [Moles/Vol] 3.9 mmol/L Normal 3.5-5.1 [facility] Comment on above: Performed By: #### T SH, CMP, T7, LIPID #### [facility] [address] [address] [address] Michelle Cali Protein [Mass/Vol] 8.5 g/dL Critically high 6.4-8.2 [facility] Comment on above: Performed By: #### T SH, CMP, T7, LIPID #### [facility] [address] [address] [address] Michelle Cali Sodium [Moles/Vol] 140 mmol/L Normal 136-145 [facility] Comment on above: Performed By: #### T SH, CMP, T7, LIPID #### [facility] [address] [place], [place] [address] Dr. Michelle Cali Urea nitrogen [Mass/Vol] 9.0 mg/dL Normal 7.0-18.0 [facility] Comment on above: Performed By: #### T SH, CMP, T7, LIPID #### [facility] [address] [place], [place] [address] Dr. Michelle Cali Urea nitrogen/Creatinine [Mass ratio] 14.3 mg/mg Normal [facility] Comment on above: Performed By: #### T SH, CMP, T7, LIPID #### [facility] [address] [place], [place] [address] Dr. Michelle Cali TSHon 09-18-2022 TSH 1.245 uIU/mL Normal 0.358-3.[address] [facility] Comment on above: Performed By: #### T SH, CMP, T7, LIPID #### [facility] [address] [place], [place] [address] ABD/PELV W CONon [...] JEFFREY BEGUM Date: 2022-07-06 01:26 Normal [facility] CBC AUTO DIFFon 07-05-2022 BASO # 0.1 103/ul Normal 0.0-0.1 [facility] Comment on above: Performed By: #### C BC #### [facility] [address] [place] [address] Dr. Michelle Cali Basophils/100 WBC (Bld) 0.9 % Normal 0.2-2.0 [facility] Comment on above: Performed By: #### C BC #### [facility] [address] [place] [address] Dr. Michelle Cali EO # 0.1 103/ul Normal 0.0-0.7 [facility] [place] [facility] Comment on above: Performed By: #### C BC #### [facility] [address] [place] [address] Dr. Michelle Cali Eosinophils/100 WBC (Bld) 1.0 % Normal 0.9-7.0 [facility] Comment on above: Performed By: #### C BC #### [facility] [address] [place] [address] Dr. Michelle Cali Erythrocyte distribution width (RBC) [Ratio] 12.5 % Normal 11.0-15.0 [facility] Comment on above: Performed By: #### C BC #### [facility] [address] [place] [address] Dr. Michelle Cali Hematocrit (Bld) [Volume fraction] 39.6 % Normal 36.0-48.0 [facility] Comment on above: Performed By: #### C BC #### [facility] [address] [place] [address] Dr. Michelle Cali Hemoglobin (Bld) [Mass/Vol] 13.6 g/dL Normal 12.0-16.0 [facility] Comment on above: Performed By: #### C BC #### [facility] [address] [place] [address] Dr. Michelle Cali IG # 0.02 10e3/ul Normal 0.00-0.03 [facility] Comment on above: Performed By: #### C BC #### [facility] [address] [place] [address] Dr. Michelle Cali IG % 0.2 % Normal 0.0-0.5 [facility] Comment on above: Performed By: #### C BC #### [facility] [address] [place] [address] Dr. Michelle Cali LYMPH # 4.0 103/ul Critically high 1.2-3.8 [facility] Comment on above: Performed By: #### C BC #### [facility] [address] [place] [address] Dr. Michelle Cali Lymphocytes/100 WBC (Bld) 44.0 % Normal 20.5-60.0 [facility] Comment on above: Performed By: #### C BC #### [facility] [address] [place] [address] Dr. Michelle Cali MANUAL DIFF REQ NO Normal [facility] Comment on above: Performed By: #### C BC #### [facility] [address] [place] [address] Dr. Michelle Cali MCH (RBC) [Entitic mass] 29.7 pg Normal 26.7-34.0 [facility] Comment on above: Performed By: #### C BC #### [facility] [address] [place] [address] Dr. Michelle Cali MCHC (RBC) [Mass/Vol] 34.3 g/dL Normal 29.9-35.2 [facility] Comment on above: Performed By: #### C BC #### [facility] [address] [place] [address] Dr. Michelle Cali MCV (RBC) [Entitic vol] 86.5 fL Normal 81.0-99.0 [facility] Comment on above: Performed By: #### C BC #### [facility] [address] [place] [address] Dr. Michelle Cali MONO # 0.6 103/ul Normal 0.3-0.8 [facility] Comment on above: Performed By: #### C BC #### [facility] [address] [place] [address] Dr. Michelle Cali Monocytes/100 WBC (Bld) 6.7 % Normal 1.7-12.0 [facility] Comment on above: Performed By: #### C BC #### [facility] [address] [place] [address] Dr. Michelle Cali NEUT # 4.2 103/ul Normal 1.4-6.5 [facility] Comment on above: Performed By: #### C BC #### [facility] [address] [place] [address] Dr. Michlele Cali Neutrophils/100 WBC (Bld) 47.2 % Normal 43.0-75.0 [facility] Comment on above: Performed By: #### C BC #### [facility] [address] [place] [address] Dr. Michelle Cali Platelet mean volume (Bld) [Entitic vol] 11.4 fL Normal 9.5-13.5 [facility] Comment on above: Performed By: #### C BC #### [facility] [address] [place] [address] Dr. Michelle Cali PLT 342 103/ul Normal 150-450 [facility] [place] [facility] Comment on above: Performed By: #### C BC #### [facility] [address] [place] [address] Dr. Michelle Cali RBC 4.58 106/ul Normal 4.20-5.40 [facility] [place] [facility] Comment on above: Performed By: #### C BC #### [facility] [address] [place] [address] Dr. Michelle Cali WBC 9.0 103/ul Normal 4.0-11.0 [facility] Comment on above: Performed By: #### C BC #### [facility] [address] [address] [address] Michelle Cali PREG HCG QUALon 07-05-2022 , QUAL Negative Normal NEGATIVE [facility] Comment on above: Performed By: #### P REG #### [facility] [address] [place] [address] Dr. Michelle Cali PROF 14(COMP METB)on 022 Albumin [Mass/Vol] 4.4 g/dL Normal 3.4-5.0 [facility] Comment on above: Performed By: #### C BC #### [facility] [address] [place] [address] Dr. Michelle Cali Albumin/Globulin [Mass ratio] 1.1 {ratio} Normal [facility] Comment on above: Performed By: #### C BC #### [facility] [address] [place] [address] Dr. Michelle Cali ALP [Catalytic activity/Vol] 82 U/L Normal 46-116 [facility] Comment on above: Performed By: #### C BC #### [facility] [address] [place] [address] Dr. Michelle Cali ALT [Catalytic activity/Vol] 22 U/L Normal 14-59 [facility] Comment on above: Performed By: #### C BC #### [facility] [address] [place] [address] Dr. Michelle Cali Anion gap [Moles/Vol] 9.3 mmol/L Normal [facility] Comment on above: Performed By: #### C BC #### [facility] [address] [place] [address] Dr. Michelle Cali AST [Catalytic activity/Vol] 17 U/L Normal 15-37 [facility] Comment on above: Performed By: #### C BC #### [facility] [address] [place] [address] Dr. Michelle Cali Bilirubin [Mass/Vol] 0.5 mg/dL Normal 0.2-1.0 [facility] Comment on above: Performed By: #### C BC #### [facility] [address] [place] [address] Dr. Michelle Cali Calcium [Mass/Vol] 9.1 mg/dL Normal 8.5-10.1 [facility] Comment on above: Performed By: #### C BC #### [facility] [address] [address] [address] Michelle Cali Chloride [Moles/Vol] 104 mmol/L Normal 98-107 [facility] Comment on above: Performed By: #### C BC #### [facility] [address] [place] [address] Dr. Michelle Cali CO2 [Moles/Vol] 26.8 mmol/L Normal 21.0-32.0 [facility] Comment on above: Performed By: #### C BC #### [facility] [address] [place] [address] Dr. Michelle Cali Creatinine [Mass/Vol] 0.73 mg/dL Normal 0.55-1.02 [facility] Comment on above: Performed By: #### C BC #### [facility] [address] [place] [address] Dr. Michelle Cali EGFR-AF SLOVAK >60 Normal >=60 [facility] Comment on above: Performed By: #### C BC #### [facility] [address] [place] [address] Dr. Michelle Cali EGFR-NON AF SLOVAK >60 Normal >=60 [facility] Comment on above: Performed By: #### C BC #### [facility] [address] [place] [address] Dr. Michelle Cali Globulin (S) [Mass/Vol] 4.1 g/dL Normal [facility] Comment on above: Performed By: #### C BC #### [facility] [address] [place] [address] Dr. Michelle Cali Glucose [Mass/Vol] 84 mg/dL Normal 74-106 [facility] Comment on above: Performed By: #### C BC #### [facility] [address] [place] [address] Dr. Michelle Cali Potassium [Moles/Vol] 3.1 mmol/L Critically low 3.5-5.1 [facility] Comment on above: Performed By: #### C BC #### [facility] [address] [address] [address] Michelle Cali Protein [Mass/Vol] 8.5 g/dL Critically high 6.4-8.2 [facility] Comment on above: Performed By: #### C BC #### [facility] [address] [address] [address] Michelle Cali Sodium [Moles/Vol] 137 mmol/L Normal 136-145 [facility] Comment on above: Performed By: #### C BC #### [facility] [address] [address] [address] Michelle Cali Urea nitrogen [Mass/Vol] 13.0 mg/dL Normal 7.0-18.0 [facility] Comment on above: Performed By: #### C BC #### [facility] [address] [address] [address] Michelle Cali Urea nitrogen/Creatinine [Mass ratio] 17.8 mg/mg Normal [facility] Comment on above: Performed By: #### C BC #### [facility] [address] [place] [address] Dr. Michelle Cali HCG,Urineon 02-07-2021 Beta HCG ( test) Ql (U) Negative Normal [facility] Comment on above: Result Comment: PERF ORMED BY: [address] [place] [address] PATHOLOGIST BLOWER INSULATOR WENDY TRUONG M.D. Performed By: #### U HCG #### [address] [place] 02-07-2021 L Specimen: [id number] Received: 02/07/21 Status: YANNA Chirag Num: [id number] Spec Type: Surgical Subm Dr: Ranjit Coe MD Tissues: A Breast Reduction - Mammoplasty (RIGHT BREAST TISSUE) B Breast Reduction - Mammoplasty (LEFT BREAST TISSUE) Procedures: HE Stain/8, Gross/Micro L4/2 Patient Age/Sex Location Account Attending Physician Latha Steel / [place] [id number] Ranjit Coe MD SPEC NUM: [id number] RECD: 02/07/21 STATUS: YESENIADelia BEARD NUM: [id number] YOUNG: 02/07/21- SUBM DR: Ranjit Coe MD ENTERED: 02/07/[address] [facility] [address]: FAHEEM TYPE: Surgical DEPT: S ENTERED BY: [id number] RECV BY: [id number] ORDERED: HE Stain/8, Gross/Micro L4/2 ORDERED: HE [...] obvious masses or lesions are grossly identified. Hat Former sections are submitted in four cassettes labeled [...] tissue. No obvious masses or lesions Specimen: [id number] Received: 02/07/21 Status: YANNA Beard Num: [id number] Spec Type: Surgical Subm Dr: Ranjit Coe MD Tissues: A Breast Reduction - Mammoplasty (RIGHT BREAST TISSUE) B Breast Reduction - Mammoplasty (LEFT BREAST TISSUE) Procedures: HE Stain/8, Gross/Micro L4/2 Patient: Latha Steel [id number] (Continued) Specimen: [id number] Received: 02/07/21 (Continued) Gross Description (Continued) Signed (signature on file) Wendy Truong MD 02/08/21 1713 Specimen: [id number] Received: 02/07/21 Status: YESENIADelia Beard Num: [id number] Spec Type: Surgical Subm Dr: Ranjit Coe MD Tissues: A Breast Reduction - Mammoplasty (RIGHT BREAST TISSUE) B Breast Reduction - Mammoplasty (LEFT BREAST TISSUE) Procedures: AFRICA Granda/Gunner Rodas/Samanta L4/2 Patient: Latha Steel [id number] (Continued) Specimen: [id number] Received: 02/07/21 (Continued) Gross Description (Continued) are grossly identified. Hat Former sections are submitted in four cassettes labeled B1- B4. (ALMA/DUYEN) Microscopic Description A. Four glass slides with H E stained material have been examined. The microscopic findings support the above pathologic diagnosis. B. Four glass slides with H E stained material have been examined. The microscopic findings support the above pathologic diagnosis. [id number] Specimen: [id number] Received: 02/07/21 Status: YANNA Beard Num: [id number] Spec Type: Surgical Subm Dr: Ranjit Coe MD Tissues: A Breast Reduction - Mammoplasty (RIGHT BREAST TISSUE) B Breast Reduction - Mammoplasty (LEFT BREAST TISSUE) Procedures: HE Stain/8, Gross/Micro L4/2 Patient: Latha Steel [id number] (Continued) (more content not included)... Normal [facility] SARS-CoV-2 (COVID-19) RNA LALITO+probe Ql (Unsp spec) Negative Normal Negative [facility] Comment on above: Order Comment: Healt hcare Worker?: N Result Comment: Testing for SARS-CoV-2 by RT-PCR This test was developed and its performance characteristics determined by [employer] [facility] and validated at the [facility]. This test has not been FDA [...] is terminated or revoked sooner. PERFORMED BY: [place] [address] PATHOLOGIST BLOWER INSULATOR WENDY TRUONG M.D. Performed By: #### C OVID 19 [facility] #### [address] [id number] [facility] Encounters Encounter Date Encounter Type Care Provider Facility Start: 01-13-2024 End: 01-13-2024 ambulatory [facility] Not Available Start: 12-18-2023 End: 12-18-2023 ambulatory [facility] Not Available Start: 12-04-2022 End: 12-04-[address] SHANTELL SIMON . Facility: Start: 09-18-2022 End: 09-19-[address] JESUS ALMONTE . Facility:[facility] Start: 07-05-2022 End: 07-06-[address] JESUS ALMONTE . Facility:[facility] Start: 05-23-2022 End: 05-23-[address] JESUS ALMONTE . Facility:[facility] Payers Date Payer Category Payer Unknown [id number] 2.16.84 [id number] 2001 Unknown [id number] 2.16.84 [id number] 2001 Unknown [id number] 2.16.84 [id number] 2001 Unknown [id number] 2.16.84 [id number] 2001 Unknown [id number] 2.16.84 [id number] 2001 Unknown [id number] 2.16.84 [id number] 1959 Self-pay 1958 Unknown [id number] Summary Purpose Family History No Family History Records FoundNo Family History Records FoundNo Family History Records Found Advance Directives No Advanced Directives Records FoundNo Advanced Directives Records FoundNo Advanced Directives Records Found Additional Source Comments INFORMATION SOURCE (unrecogn ized section and content) DATE CREATED AUTHOR 08/11/2021 [facility] DATE CREATED AUTHOR AUTHOR'S ORGANIZ ATION 12/09/2022 [facility] DATE CREATED AUTHOR AUTHOR'S ORGANIZ ATION 01/15/2024 [facility] FOR RECORDS PERTAINING TO PATIENTS WHO ARE [...] BE BASED ON THE PRIMARY CLINICAL RECORDS. [facility] [employer] [facility]. provides no warranty or guarantee of the accuracy or completeness of information in this document.
== END 2024-03-02 14:39 | disposition home or self-care (01) ==
LOC: NOMS 14:39
PROVIDERS: PCP Family Medicine; Visit Provider Physician Assistant
DX: Z36.89 Encounter for other specified antenatal screening (principal); Z3A.20 20 weeks gestation of pregnancy
CPT/HCPCS: 76805; 76817

== ENCOUNTER 2024-03-12 08:16 | Outpatient (OUT) | payer BC, MEDICAID, SELFPAY ==
--- OUTSIDE RECORDS SUMMARY | 2024-03-12 08:22 | XMS_ITS | CCD ---
Author Organization [facility] Care Team Providers Care Concession Supervisor Name Role Phone MARKER ., DR STINSON [...] CK [Catalytic activity/Vol] 102 U/L Normal 26-192 [facility] Comment on above: Performed By: #### C BC #### [facility] [address] [place] [address] Dr. Michelle Cali CK.MB [Mass/Vol] 0.74 ng/mL Normal <=3.60 [facility] Comment on above: Performed By: #### C BC #### [facility] [address] [place] [address] Dr. Michelle Cali HSTROP 7.7 pg/mL Normal 4.0-51.3 [facility] Comment on above: Result Comment: CUT- OFF POINTS HAVE BEEN ESTABLISHED BASED ON THE FOURTH UNIVERSAL DEFINITIONS OF MYOCARDIAL INFARCTION. THE UPPER REFERENCE LIMIT (URL) OF TROPONIN, DEFINED THE 99TH PERCENTILE OF cTnI DISTRIBUTION IN A REFERENCE POPULATION, HAS BEEN CONFIRMED THE DECISION THRESHOLD FOR ND DIAGNOSIS. Performed By: #### C BC #### [facility] [address] [address] [address] Michelle Cali SHAHNAZ 24 ng/mL Normal 9-82 [facility] Comment on above: Performed By: #### C BC #### [facility] [address] [place] [address] Dr. Michelle Cali CBC AUTO DIFFon 12-04-2022 BASO # 0.1 103/ul Normal 0.0-0.1 [facility] Comment on above: Performed By: #### C BC #### [facility] [address] [address] [address] Michelle Cali Basophils/100 WBC (Bld) 0.9 % Normal 0.2-2.0 [facility] Comment on above: Performed By: #### C BC #### [facility] [address] [place] [address] Dr. Michelle Cali EO # 0.1 103/ul Normal 0.0-0.7 [facility] Comment on above: Performed By: #### C BC #### [facility] [address] [place] [address] Dr. Michelle Cali Eosinophils/100 WBC (Bld) 0.6 % Critically low 0.9-7.0 [facility] Comment on above: Performed By: #### C BC #### [facility] [address] [place] [address] Dr. Michelle Cali Erythrocyte distribution width (RBC) [Ratio] 12.3 % Normal 11.0-15.0 [facility] Comment on above: Performed By: #### C BC #### [facility] [address] [place] [address] Dr. Michelle Cali Hematocrit (Bld) [Volume fraction] 40.3 % Normal 36.0-48.0 [facility] Comment on above: Performed By: #### C BC #### [facility] [address] [place] [address] Dr. Michelle Cali Hemoglobin (Bld) [Mass/Vol] 13.2 g/dL Normal 12.0-16.0 [facility] Comment on above: Performed By: #### C BC #### [facility] [address] [place] [address] Dr. Michelle Cali IG # 0.03 10e3/ul Normal 0.00-0.03 [facility] Comment on above: Performed By: #### C BC #### [facility] [address] [place] [address] Dr. Michelle Cali IG % 0.3 % Normal 0.0-0.5 [facility] Comment on above: Performed By: #### C BC #### [facility] [address] [place] [address] Dr. Michelle Cali LYMPH # 4.1 103/ul Critically high 1.2-3.8 [facility] Comment on above: Performed By: #### C BC #### [facility] [address] [place] [address] Dr. Michelle Cali Lymphocytes/100 WBC (Bld) 39.9 % Normal 20.5-60.0 [facility] Comment on above: Performed By: #### C BC #### [facility] [address] [place] [address] Dr. Michelle Cali MANUAL DIFF REQ NO Normal [facility] Comment on above: Performed By: #### C BC #### [facility] [address] [place] [address] Dr. Michelle Cali MCH (RBC) [Entitic mass] 29.8 pg Normal 26.7-34.0 [facility] Comment on above: Performed By: #### C BC #### [facility] [address] [place] [address] Dr. Michelle Cali MCHC (RBC) [Mass/Vol] 32.8 g/dL Normal 29.9-35.2 [facility] Comment on above: Performed By: #### C BC #### [facility] [address] [place] [address] Dr. Michelle Cali MCV (RBC) [Entitic vol] 91.0 fL Normal 81.0-99.0 [facility] Comment on above: Performed By: #### C BC #### [facility] [address] [place] [address] Dr. Michelle Cali MONO # 0.5 103/ul Normal 0.3-0.8 [facility] Comment on above: Performed By: #### C BC #### [facility] [address] [place] [address] Dr. Michelle Cali Monocytes/100 WBC (Bld) 5.2 % Normal 1.7-12.0 [facility] Comment on above: Performed By: #### C BC #### [facility] [address] [place] [address] Dr. Michelle Cali NEUT # 5.4 103/ul Normal 1.4-6.5 [facility] [place] Comment on above: Performed By: #### C BC #### [facility] [address] [address] [address] Michelle Cali Neutrophils/100 WBC (Bld) 53.1 % Normal 43.0-75.0 [facility] Comment on above: Performed By: #### C BC #### [facility] [address] [address] [address] Michelle Cali Platelet mean volume (Bld) [Entitic vol] 10.6 fL Normal 9.5-13.5 [facility] Comment on above: Performed By: #### C BC #### [facility] [address] [place] [address] Dr. Michelle Cali PLT 310 103/ul Normal 150-450 [facility] [place] Comment on above: Performed By: #### C BC #### [facility] [address] [place] [address] Dr. Michelle Cali RBC 4.43 106/ul Normal 4.20-5.40 [facility] [place] Comment on above: Performed By: #### C BC #### [facility] [address] [place] [address] Dr. Michelle Cali WBC 10.2 103/ul Normal 4.0-11.0 [facility] Comment on above: Performed By: #### C BC #### [facility] [address] [place] [address] Dr. Michelle Cali D-DIMERon 12-04-2022 D-DIMER 0.19 mg/L FEU Normal <=0.59 [facility] Comment on above: Performed By: #### C BC #### [facility] [address] [place] [address] Dr. Michelle Cali D-DIMER COMMENTS SEE BELOW [...] hospitalization. Performed By: #### C BC #### [facility] [address] [place] [address] Dr. Michelle HATFIELD URINE PROFILEon 3 Bilirubin Ql (U) Negative Normal NEGATIVE [facility] Comment on above: Performed By: #### P REGU, ERUR #### [facility] [address] [place] [address] Dr. Michelle Cali Clarity (U) CLEAR Normal CLEAR [facility] Comment on above: Performed By: #### P REGU, ERUR #### [facility] [address] [place] [address] Dr. Michelle Cali Color (U) YELLOW Normal YELLOW [facility] Comment on above: Performed By: #### P REGU, ERUR #### [facility] [address] [place] [address] Dr. Michelle COOND A micrscopic examination will be performed if indicated. Normal [facility] Comment on above: Performed By: #### P REGU, ERUR #### [facility] [address] [place] [address] Dr. Michelle Cali Glucose Ql (U) Negative Normal NEGATIVE [facility] Comment on above: Performed By: #### P REGU, ERUR #### [facility] [address] [place] [address] Dr. Michelle Cali Hemoglobin Ql (U) Negative [facility] Comment on above: Performed By: #### P REGU, ERUR #### [facility] [address] [place] [address] Dr. Michelle Cali Ketones Ql (U) Negative Normal NEGATIVE [facility] Comment on above: Performed By: #### P REGU, ERUR #### [facility] [address] [place] [address] Dr. Michelle Cali LEUKOCYTES Negative Normal NEGATIVE [facility] Comment on above: Performed By: #### P REGU, ERUR #### [facility] [address] [address] [address] Michelle Cali Nitrite Ql (U) Negative Normal NEGATIVE [facility] Comment on above: Performed By: #### P REGU, ERUR #### [facility] [address] [address] [address] Michelle Cali pH (U) 6.0 [pH] Normal 5-9 [facility] Comment on above: Performed By: #### P REGU, ERUR #### [facility] [address] [address] [address] Michelle Cali SPEC GRAVITY >=1.030 Abnormal 1.005-<=1.[address] [facility] Comment on above: Performed By: #### P REGU, ERUR #### [facility] [address] [place] [address] Dr. Michelle Cali UA PROTEIN TRACE Normal NEGATIVE/ TRACE [facility] Comment on above: Performed By: #### P REGU, ERUR #### [facility] [address] [address] [address] Michelle Cali UR MICRO IND NOT INDICATED Normal [facility] Comment on above: Performed By: #### P REGU, ERUR #### [facility] [address] [place] [address] Dr. Michelle Cali Urobilinogen Qn (U) 0.2 {Kalyan'U}/dL Normal 0.2 - 1. 0 [facility] Comment on above: Performed By: #### P REGU, ERUR #### [facility] [address] [place] [address] Dr. Michelle Cali URon 12-04-2022 , QUAL Negative Normal NEGATIVE [facility] Comment on above: Performed By: #### P REGU, ERUR #### [facility] [address] [place] [address] Dr. Michelle Cali PROF 14(COMP METB)on 023 Albumin [Mass/Vol] 3.9 g/dL Normal 3.4-5.0 [facility] Comment on above: Performed By: #### C BC #### [facility] [address] [address] [address] Michelle Cali Albumin/Globulin [Mass ratio] 1.0 {ratio} Normal [facility] Comment on above: Performed By: #### C BC #### [facility] [address] [address] [address] Michelle Cali ALP [Catalytic activity/Vol] 69 U/L Normal 46-116 [facility] Comment on above: Performed By: #### C BC #### [facility] [address] [address] [address] Michelle Cali ALT [Catalytic activity/Vol] 13 U/L Critically low 14-59 [facility] Comment on above: Performed By: #### C BC #### [facility] [address] [place] [address] Dr. Michelle Cali Anion gap [Moles/Vol] 13.6 mmol/L Normal [facility] Comment on above: Performed By: #### C BC #### [facility] [address] [place] [address] Dr. Michelle Cali AST [Catalytic activity/Vol] 11 U/L Critically low 15-37 [facility] Comment on above: Performed By: #### C BC #### [facility] [address] [place] [address] Dr. Michelle Cali Bilirubin [Mass/Vol] 0.3 mg/dL Normal 0.2-1.0 [facility] Comment on above: Performed By: #### C BC #### [facility] [address] [place] [address] Dr. Michelle Cali Calcium [Mass/Vol] 9.0 mg/dL Normal 8.5-10.1 [facility] Comment on above: Performed By: #### C BC #### [facility] [address] [place] [address] Dr. Michelle Cali Chloride [Moles/Vol] 105 mmol/L Normal 98-107 [facility] Comment on above: Performed By: #### C BC #### [facility] [address] [place], [place] [id number] Dr. Michelle Cali CO2 [Moles/Vol] 26.8 mmol/L Normal 21.0-32.0 [facility] Comment on above: Performed By: #### C BC #### [facility] [address] [place] [address] Dr. Michelle Cali Creatinine [Mass/Vol] 0.82 mg/dL Normal 0.55-1.02 [facility] Comment on above: Performed By: #### C BC #### [facility] [address] [place] [address] Dr. Michelle Cali EGFR-AF NAMIBIAN >60 Normal >=60 [facility] Comment on above: Performed By: #### C BC #### [facility] [address] [place] [address] Dr. Michelle Cali EGFR-NON AF NAMIBIAN >60 Normal >=60 [facility] Comment on above: Performed By: #### C BC #### [facility] [address] [place] [address] Dr. Michelle Cali Globulin (S) [Mass/Vol] 3.8 g/dL Normal [facility] Comment on above: Performed By: #### C BC #### [facility] [address] [place] [address] Dr. Michelle Cali Glucose [Mass/Vol] 104 mg/dL Normal 74-106 [facility] Comment on above: Performed By: #### C BC #### [facility] [address] [place] [address] Dr. Michelle Cali Potassium [Moles/Vol] 3.4 mmol/L Critically low 3.5-5.1 [facility] Comment on above: Performed By: #### C BC #### [facility] [address] [place] [address] Dr. Michelle Cali Protein [Mass/Vol] 7.7 g/dL Normal 6.4-8.2 [facility] Comment on above: Performed By: #### C BC #### [facility] [address] [place] [address] Dr. Michelle Cali Sodium [Moles/Vol] 142 mmol/L Normal 136-145 [facility] Comment on above: Performed By: #### C BC #### [facility] [address] [place] [address] Dr. Michelle Cali Urea nitrogen [Mass/Vol] 9.0 mg/dL Normal 7.0-18.0 [facility] Comment on above: Performed By: #### C BC #### [facility] [address] [place] [address] Dr. Michelle Cali Urea nitrogen/Creatinine [Mass ratio] 11.0 mg/mg Normal [facility] Comment on above: Performed By: #### C BC #### [facility] [address] [place] [address] Dr. Michelle Cali TSHon 12-04-2022 TSH 6.358 uIU/mL Critically high 0.358-3.740 [facility] Comment on above: Performed By: #### C BC #### [facility] [address] [place] [address] Dr. Michelle Cali INSULINon 09-19-2022 Insulin 6.8 uIU/mL Normal 2.6-24.9 [facility] Comment on above: Performed By: #### C BC #### [facility] [address] [place] [address] Dr. Michelle Cali CBC AUTO DIFFon 09-18-2022 BASO # 0.1 103/ul Normal 0.0-0.1 [facility] Comment on above: Performed By: #### C BC #### [facility] [address] [place] [address] Dr. Michelle Cali Basophils/100 WBC (Bld) 0.8 % Normal 0.2-2.0 [facility] Comment on above: Performed By: #### C BC #### [facility] [address] [place] [address] Dr. Michelle Cali EO # 0.1 103/ul Normal 0.0-0.7 [facility] Comment on above: Performed By: #### C BC #### [facility] [address] [place] [address] Dr. Michelle Cali Eosinophils/100 WBC (Bld) 0.8 % Critically low 0.9-7.0 [facility] Comment on above: Performed By: #### C BC #### [facility] [address] [place] [address] Dr. Michelle Cali Erythrocyte distribution width (RBC) [Ratio] 12.4 % Normal 11.0-15.0 [facility] Comment on above: Performed By: #### C BC #### [facility] [address] [place] [address] Dr. Michelle Cali Hematocrit (Bld) [Volume fraction] 41.6 % Normal 36.0-48.0 [facility] Comment on above: Performed By: #### C BC #### [facility] [address] [place] [address] Dr. Michelle Cali Hemoglobin (Bld) [Mass/Vol] 14.3 g/dL Normal 12.0-16.0 [facility] Comment on above: Performed By: #### C BC #### [facility] [address] [place] [address] Dr. Michelle Cali IG # 0.03 10e3/ul Normal 0.00-0.03 [facility] Comment on above: Performed By: #### C BC #### [facility] [address] [place] [address] Dr. Michelle Cali IG % 0.3 % Normal 0.0-0.5 [facility] Comment on above: Performed By: #### C BC #### [facility] [address] [place] [address] Dr. Michelle Cali LYMPH # 3.1 103/ul Normal 1.2-3.8 [facility] Comment on above: Performed By: #### C BC #### [facility] [address] [place] [address] Dr. Michelle Cali Lymphocytes/100 WBC (Bld) 32.8 % Normal 20.5-60.0 [facility] Comment on above: Performed By: #### C BC #### [facility] [address] [place] [address] Dr. Michelle Cali MANUAL DIFF REQ NO Normal [facility] Comment on above: Performed By: #### C BC #### [facility] [address] [place] [address] Dr. Michelle Cali MCH (RBC) [Entitic mass] 29.5 pg Normal 26.7-34.0 [facility] Comment on above: Performed By: #### C BC #### [facility] [address] [place] [address] Dr. Michelle Cali MCHC (RBC) [Mass/Vol] 34.4 g/dL Normal 29.9-35.2 [facility] Comment on above: Performed By: #### C BC #### [facility] [address] [place] [address] Dr. Michelle Cali MCV (RBC) [Entitic vol] 86.0 fL Normal 81.0-99.0 [facility] Comment on above: Performed By: #### C BC #### [facility] [address] [place] [address] Dr. Michelle Cali MONO # 0.5 103/ul Normal 0.3-0.8 [facility] Comment on above: Performed By: #### C BC #### [facility] [address] [place] [address] Dr. Michelle Cali Monocytes/100 WBC (Bld) 5.6 % Normal 1.7-12.0 [facility] Comment on above: Performed By: #### C BC #### [facility] [address] [place] [address] Dr. Michelle Cali NEUT # 5.7 103/ul Normal 1.4-6.5 [facility] Comment on above: Performed By: #### C BC #### [facility] [address] [place] [address] Dr. Michelle Cali Neutrophils/100 WBC (Bld) 59.7 % Normal 43.0-75.0 [facility] Comment on above: Performed By: #### C BC #### [facility] [address] [place] [address] Dr. Michelle Cali Platelet mean volume (Bld) [Entitic vol] 10.3 fL Normal 9.5-13.5 [facility] Comment on above: Performed By: #### C BC #### [facility] [address] [place] [address] Dr. Michelle Cali PLT 319 103/ul Normal 150-450 [facility] Comment on above: Performed By: #### C BC #### [facility] [address] [place] [address] Dr. Michelle Cali RBC 4.84 106/ul Normal 4.20-5.40 [facility] Comment on above: Performed By: #### C BC #### [facility] [address] [place] [address] Dr. Michelle Cail WBC 9.5 103/ul Normal 4.0-11.0 [facility] Comment on above: Performed By: #### C BC #### [facility] [address] [place] [address] Dr. Michelle Cali FREE THYROXINE INDEX T7on FTI 2.36 Normal 1.30-4.50 [facility] Comment on above: Performed By: #### T SH, CMP, T7, LIPID #### [facility] [address] [place] [address] Dr. Michelle Cali T3U 31.0 % Normal 30.0-39.0 [facility] Comment on above: Performed By: #### T SH, CMP, T7, LIPID #### [facility] [address] [place] [address] Dr. Michelle Cali T4 [Mass/Vol] 7.60 ug/dL Normal 4.80-13.90 [facility] Comment on above: Performed By: #### T SH, CMP, T7, LIPID #### [facility] [address] [place] [address] Dr. Michelle Cali GLYCOHEMOGLOBIN A1Con 2022 ADA RECOMMENDATION SEE BELOW Normal [facility] Comment on above: Result Comment: ADA RECOMMENDED LIMIT 4.0 - 6.0 ADA THERAPEUTIC TARGET < 7.0 ACTION SUGGESTED > 7.0 Performed By: #### C BC #### [facility] [address] [address] [address] Michelle Cali Glucose [Mass/Vol] 105 mg/dL Normal [facility] Comment on above: Performed By: #### C BC #### [facility] [address] [address] [address] Michelle Cali HbA1c (Bld) [Mass fraction] 5.3 % Normal 4.5-6.2 [facility] Comment on above: Performed By: #### C BC #### [facility] [address] [address] [address] Michelle Cali IRONon 09-18-2022 Iron [Mass/Vol] 80.0 ug/dL Normal 50.0-170.0 [facility] Comment on above: Performed By: #### I ABIGAIL #### [facility] [address] [place] [address] Dr. Michelle Cali LIPID PROFILEon 09-18-2022 CHOL-HDL RATIO NORM SEE BELOW Normal [facility] Comment on above: Result Comment: 3.3 - 4.4 LOW RISK 4.4 - 7.1 AVERAGE RISK 7.1 - 11.0 MODERATE RISK >11.0 HIGH RISK Performed By: #### T SH, CMP, T7, LIPID #### [facility] [address] [place] [address] Dr. Michelle Cali Cholesterol [Mass/Vol] 175 mg/dL Normal <=200 [facility] Comment on above: Performed By: #### T SH, CMP, T7, LIPID #### [facility] [address] [address] [address] Michelle Cali Cholesterol in HDL [Mass/Vol] 72 mg/dL Critically high 40-60 [facility] Comment on above: Performed By: #### T SH, CMP, T7, LIPID #### [facility] [address] [place] [address] Dr. Michelle Cali Cholesterol in LDL [Mass/Vol] 85.8 mg/dL Normal [facility] Comment on above: Performed By: #### T SH, CMP, T7, LIPID #### [facility] [address] [place] [address] Dr. Michelle Cali Cholesterol.total/Cho lesterol in HDL [Mass ratio] 2.4 {ratio} Normal [facility] Comment on above: Performed By: #### T SH, CMP, T7, LIPID #### [facility] [address] [address] [address] Michelle Cali HDL NORMAL > or = 60 mg/dl - LOW CARDIOVASCULAR RISK <40 mg/dl - HIGH CARDIOVASCULAR RISK Normal [facility] Comment on above: Performed By: #### T SH, CMP, T7, LIPID #### [facility] [address] [address] [address] Michelle Cali LDL CALC NORMAL SEE BELOW Normal [facility] Comment on above: Result Comment: <100 mg/dl OPTIMAL 100 - 129 mg/dl NEAR OR ABOVE OPTIMAL 130 - 159 mg/dl BORDERLINE HIGH 160 - 189 mg/dl HIGH >190 mg/dl VERY HIGH Performed By: #### T SH, CMP, T7, LIPID #### [facility] [address] [address] [address] Michelle Cali Triglyceride [Mass/Vol] 86 mg/dL Normal <=150 [facility] [facility] [place] Comment on above: Performed By: #### T SH, CMP, T7, LIPID #### [facility] [address] [address] [address] Michelle Cali VLDL CALC 17.2 mg/dL Normal [facility] [place] Comment on above: Performed By: #### T SH, CMP, T7, LIPID #### [facility] [address] [place] [address] Dr. Michelle Cali PROF 14(COMP METB)on 023 Albumin [Mass/Vol] 4.3 g/dL Normal 3.4-5.0 [facility] Comment on above: Performed By: #### T SH, CMP, T7, LIPID #### [facility] [address] [place] [address] Dr. Michelle Cali Albumin/Globulin [Mass ratio] 1.0 {ratio} Normal [facility] [place] Comment on above: Performed By: #### T SH, CMP, T7, LIPID #### [facility] [address] [place] [address] Dr. Michelle Cali ALP [Catalytic activity/Vol] 65 U/L Normal 46-116 [facility] [place] Comment on above: Performed By: #### T SH, CMP, T7, LIPID #### [facility] [address] [address] [address] Michelle Cali ALT [Catalytic activity/Vol] 17 U/L Normal 14-59 [facility] [place] Comment on above: Performed By: #### T SH, CMP, T7, LIPID #### [facility] [address] [address] [address] Michelle Cali Anion gap [Moles/Vol] 12.2 mmol/L Normal [facility] Comment on above: Performed By: #### T SH, CMP, T7, LIPID #### [facility] [address] [place] [address] Dr. Michelle Cali AST [Catalytic activity/Vol] 15 U/L Normal 15-37 [facility] [place] Comment on above: Performed By: #### T SH, CMP, T7, LIPID #### [facility] [address] [place] [address] Dr. Michelle Cali Bilirubin [Mass/Vol] 0.4 mg/dL Normal 0.2-1.0 [facility] [place] Comment on above: Performed By: #### T SH, CMP, T7, LIPID #### [facility] [address] [place] [address] Dr. Michelle Cali Calcium [Mass/Vol] 9.4 mg/dL Normal 8.5-10.1 [facility] Comment on above: Performed By: #### T SH, CMP, T7, LIPID #### [facility] [address] [place] [address] Dr. Michelle Cali Chloride [Moles/Vol] 104 mmol/L Normal 98-107 [facility] [place] Comment on above: Performed By: #### T SH, CMP, T7, LIPID #### [facility] [address] [address] [address] Michelle Cali CO2 [Moles/Vol] 27.7 mmol/L Normal 21.0-32.0 [facility] Comment on above: Performed By: #### T SH, CMP, T7, LIPID #### [facility] [address] [address] [address] Michelle Cali Creatinine [Mass/Vol] 0.63 mg/dL Normal 0.55-1.02 [facility] [place] Comment on above: Performed By: #### T SH, CMP, T7, LIPID #### [facility] [address] [address] [address] Michelle Cali EGFR-AF NAMIBIAN >60 Normal >=60 [facility] Comment on above: Performed By: #### T SH, CMP, T7, LIPID #### [facility] [address] [address] [address] Michelle Cali EGFR-NON AF NAMIBIAN >60 Normal >=60 [facility] [place] Comment on above: Performed By: #### T SH, CMP, T7, LIPID #### [facility] [address] [address] [address] Michelle Cali Globulin (S) [Mass/Vol] 4.2 g/dL Normal [facility] [place] Comment on above: Performed By: #### T SH, CMP, T7, LIPID #### [facility] [address] [address] [address] Michelle Cali Glucose [Mass/Vol] 83 mg/dL Normal 74-106 [facility] Comment on above: Performed By: #### T SH, CMP, T7, LIPID #### [facility] [address] [address] [address] Michelle Cali Potassium [Moles/Vol] 3.9 mmol/L Normal 3.5-5.1 [facility] [place] Comment on above: Performed By: #### T SH, CMP, T7, LIPID #### [facility] [address] [address] [address] Michelle Cali Protein [Mass/Vol] 8.5 g/dL Critically high 6.4-8.2 [facility] Comment on above: Performed By: #### T SH, CMP, T7, LIPID #### [facility] [address] [address] [address] Michelle Cali Sodium [Moles/Vol] 140 mmol/L Normal 136-145 [facility] Comment on above: Performed By: #### T SH, CMP, T7, LIPID #### [facility] [address], [place] [address] Dr. Michelle Cali Urea nitrogen [Mass/Vol] 9.0 mg/dL Normal 7.0-18.0 [facility] [place] Comment on above: Performed By: #### T SH, CMP, T7, LIPID #### [facility] [address], [place] [address] Dr. Michelle Cali Urea nitrogen/Creatinine [Mass ratio] 14.3 mg/mg Normal [facility] [place] Comment on above: Performed By: #### T SH, CMP, T7, LIPID #### [facility] [address], [place] [address] Dr. Michelle Cali TSHon 09-18-2022 TSH 1.245 uIU/mL Normal 0.358-3.740 [facility] Comment on above: Performed By: #### T SH, CMP, T7, LIPID #### [facility] [address], [place] [address] ABD/PELV W CONon [...] JEFFREY BEGUM Date: 2022-07-06 01:26 Normal [facility] CBC AUTO DIFFon 07-05-2022 BASO # 0.1 103/ul Normal 0.0-0.1 [facility] [place] Comment on above: Performed By: #### C BC #### [facility] [address] [place] [address] Dr. Michelle Cali Basophils/100 WBC (Bld) 0.9 % Normal 0.2-2.0 [facility] [place] Comment on above: Performed By: #### C BC #### [facility] [address] [place] [address] Dr. Michelle Cali EO # 0.1 103/ul Normal 0.0-0.7 [facility] Comment on above: Performed By: #### C BC #### [facility] [address] [place] [address] Dr. Michelle Cali Eosinophils/100 WBC (Bld) 1.0 % Normal 0.9-7.0 [facility] [place] Comment on above: Performed By: #### C BC #### [facility] [address] [place] [address] Dr. Michelle Cali Erythrocyte distribution width (RBC) [Ratio] 12.5 % Normal 11.0-15.0 [facility] [place] Comment on above: Performed By: #### C BC #### [facility] [address] [place] [address] Dr. Michelle Cali Hematocrit (Bld) [Volume fraction] 39.6 % Normal 36.0-48.0 [facility] [place] Comment on above: Performed By: #### C BC #### [facility] [address] [place] [address] Dr. Michelle Cali Hemoglobin (Bld) [Mass/Vol] 13.6 g/dL Normal 12.0-16.0 [facility] [place] Comment on above: Performed By: #### C BC #### [facility] [address] [place] [address] Dr. Michelle Cali IG # 0.02 10e3/ul Normal 0.00-0.03 [facility] [place] Comment on above: Performed By: #### C BC #### [facility] [address] [place] [address] Dr. Michelle Cali IG % 0.2 % Normal 0.0-0.5 [facility] [place] Comment on above: Performed By: #### C BC #### [facility] [address] [place] [address] Dr. Michelle Cali LYMPH # 4.0 103/ul Critically high 1.2-3.8 [facility] Comment on above: Performed By: #### C BC #### [facility] [address] [place] [address] Dr. Michelle Cali Lymphocytes/100 WBC (Bld) 44.0 % Normal 20.5-60.0 [facility] [place] Comment on above: Performed By: #### C BC #### [facility] [address] [place] [address] Dr. Michelle Cali MANUAL DIFF REQ NO Normal [facility] Comment on above: Performed By: #### C BC #### [facility] [address] [place] [address] Dr. Michelle Cali MCH (RBC) [Entitic mass] 29.7 pg Normal 26.7-34.0 [facility] [place] Comment on above: Performed By: #### C BC #### [facility] [address] [place] [address] Dr. Michelle Cali MCHC (RBC) [Mass/Vol] 34.3 g/dL Normal 29.9-35.2 [facility] [place] Comment on above: Performed By: #### C BC #### [facility] [address] [place] [address] Dr. Michelle Cali MCV (RBC) [Entitic vol] 86.5 fL Normal 81.0-99.0 [facility] [place] Comment on above: Performed By: #### C BC #### [facility] [address] [place] [address] Dr. Michelle Cali MONO # 0.6 103/ul Normal 0.3-0.8 [facility] [place] Comment on above: Performed By: #### C BC #### [facility] [address] [place] [address] Dr. Micehlle Cali Monocytes/100 WBC (Bld) 6.7 % Normal 1.7-12.0 [facility] [place] Comment on above: Performed By: #### C BC #### [facility] [address] [place] [address] Dr. Michelle Cali NEUT # 4.2 103/ul Normal 1.4-6.5 [facility] [place] Comment on above: Performed By: #### C BC #### [facility] [address] [place] [address] Dr. Michelle Cali Neutrophils/100 WBC (Bld) 47.2 % Normal 43.0-75.0 [facility] [place] Comment on above: Performed By: #### C BC #### [facility] [address] [place] [address] Dr. Michelle Cali Platelet mean volume (Bld) [Entitic vol] 11.4 fL Normal 9.5-13.5 [facility] [place] Comment on above: Performed By: #### C BC #### [facility] [address] [place] [address] Dr. Michelle Cali PLT 342 103/ul Normal 150-450 [facility] Comment on above: Performed By: #### C BC #### [facility] [address] [place] [address] Dr. Michelle Cali RBC 4.58 106/ul Normal 4.20-5.40 [facility] Comment on above: Performed By: #### C BC #### [facility] [address] [place] [address] Dr. Michelle Cali WBC 9.0 103/ul Normal 4.0-11.0 [facility] [place] Comment on above: Performed By: #### C BC #### [facility] [address] [address] [address] Michelle Cali PREG HCG QUALon 07-05-2022 , QUAL Negative Normal NEGATIVE [facility] Comment on above: Performed By: #### P REG #### [facility] [address] [place] [address] Dr. Michelle Cali PROF 14(COMP METB)on 022 Albumin [Mass/Vol] 4.4 g/dL Normal 3.4-5.0 [facility] Comment on above: Performed By: #### C BC #### [facility] [address] [place] [address] Dr. Michelle Cali Albumin/Globulin [Mass ratio] 1.1 {ratio} Normal [facility] [place] Comment on above: Performed By: #### C BC #### [facility] [address] [place] [address] Dr. Michelle Cali ALP [Catalytic activity/Vol] 82 U/L Normal 46-116 [facility] [place] Comment on above: Performed By: #### C BC #### [facility] [address] [place] [address] Dr. Michelle Cali ALT [Catalytic activity/Vol] 22 U/L Normal 14-59 [facility] [place] Comment on above: Performed By: #### C BC #### [facility] [address] [place] [address] Dr. Michelle Cali Anion gap [Moles/Vol] 9.3 mmol/L Normal [facility] [place] Comment on above: Performed By: #### C BC #### [facility] [address] [place] [address] Dr. Michelle Cali AST [Catalytic activity/Vol] 17 U/L Normal 15-37 [facility] [place] Comment on above: Performed By: #### C BC #### [facility] [address] [place] [address] Dr. Michelle Cali Bilirubin [Mass/Vol] 0.5 mg/dL Normal 0.2-1.0 [facility] [place] Comment on above: Performed By: #### C BC #### [facility] [address] [place] [address] Dr. Michelle Cali Calcium [Mass/Vol] 9.1 mg/dL Normal 8.5-10.1 [facility] Comment on above: Performed By: #### C BC #### [facility] [address] [address] [address] Michelle Cali Chloride [Moles/Vol] 104 mmol/L Normal 98-107 [facility] Comment on above: Performed By: #### C BC #### [facility] [address] [place] [address] Dr. Michelle Cali CO2 [Moles/Vol] 26.8 mmol/L Normal 21.0-32.0 [facility] Comment on above: Performed By: #### C BC #### [facility] [address] [place] [address] Dr. Michelle Clai Creatinine [Mass/Vol] 0.73 mg/dL Normal 0.55-1.02 [facility] Comment on above: Performed By: #### C BC #### [facility] [address] [place] [address] Dr. Michelle Cali EGFR-AF NAMIBIAN >60 Normal >=60 [facility] Comment on above: Performed By: #### C BC #### [facility] [address] [place] [address] Dr. Michelle Cali EGFR-NON AF NAMIBIAN >60 Normal >=60 [facility] Comment on above: Performed By: #### C BC #### [facility] [address] [place] [address] Dr. Michelle Cali Globulin (S) [Mass/Vol] 4.1 g/dL Normal [facility] Comment on above: Performed By: #### C BC #### [facility] [address] [place] [address] Dr. Michelle Cali Glucose [Mass/Vol] 84 mg/dL Normal 74-106 [facility] Comment on above: Performed By: #### C BC #### [facility] [address] [place] [address] Dr. Michelle Cali Potassium [Moles/Vol] 3.1 mmol/L Critically low 3.5-5.1 [facility] [place] Comment on above: Performed By: #### C BC #### [facility] [address] [address] [address] Michelle Cali Protein [Mass/Vol] 8.5 g/dL Critically high 6.4-8.2 [facility] Comment on above: Performed By: #### C BC #### [facility] [address] [address] [address] Michelle Cali Sodium [Moles/Vol] 137 mmol/L Normal 136-145 [facility] Comment on above: Performed By: #### C BC #### [facility] [address] [address] [address] Michelle Cali Urea nitrogen [Mass/Vol] 13.0 mg/dL Normal 7.0-18.0 [facility] [place] Comment on above: Performed By: #### C BC #### [facility] [address] [address] [address] Michelle Cali Urea nitrogen/Creatinine [Mass ratio] 17.8 mg/mg Normal [facility] [place] Comment on above: Performed By: #### C BC #### [facility] [address] [place] [address] Dr. Michelle Cali HCG,Urineon 02-07-2021 Beta HCG ( test) Ql (U) Negative Normal [facility] Comment on above: Result Comment: PERF ORMED BY: [address] [place] [address] PATHOLOGIST [employer]ING [employer]EL [employer]ESSER WENDY TRUONG M.D. Performed By: #### U HCG #### [address] [place] 02-07-2021 L Specimen: [id number] Received: 02/07/21 Status: YANNA Chirag Num: [id number] Spec Type: Surgical Subm Dr: Ranjit Coe MD Tissues: A Breast Reduction - Mammoplasty (RIGHT BREAST TISSUE) B Breast Reduction - Mammoplasty (LEFT BREAST TISSUE) Procedures: HE Stain/8, Gross/Micro L4/2 Patient Age/Sex Location Account Attending Physician Latha Steel / [place] [id number] Ranjit Coe MD SPEC NUM: [id number] RECD: 02/07/21 STATUS: YESENIADelia BEARD NUM: [id number] YOUNG: 02/07/21- SUBM DR: Ranjit Coe MD ENTERED: 02/07/[address] [facility] DR: FAHEEM TYPE: Surgical DEPT: S ENTERED BY: [id number] RECV BY: [id number] ORDERED: HE Stain/8, Gross/Micro L4/2 ORDERED: HE [...] obvious masses or lesions are grossly identified. Pocket Cutter sections are submitted in four cassettes labeled [...] tissue. No obvious masses or lesions Specimen: [id number] Received: 02/07/21 Status: YANNA Beard Num: [id number] Spec Type: Surgical Subm Dr: Ranjit Coe MD Tissues: A Breast Reduction - Mammoplasty (RIGHT BREAST TISSUE) B Breast Reduction - Mammoplasty (LEFT BREAST TISSUE) Procedures: HE Stain/8, Gross/Micro L4/2 Patient: Latha Steel [id number] (Continued) Specimen: [id number] Received: 02/07/21 (Continued) Gross Description (Continued) Signed (signature on file) Wendy Truong MD 02/08/21 1713 Specimen: [id number] Received: 02/07/21 Status: YESENIADelia Beard Num: [id number] Spec Type: Surgical Subm Dr: Ranjit Coe MD Tissues: A Breast Reduction - Mammoplasty (RIGHT BREAST TISSUE) B Breast Reduction - Mammoplasty (LEFT BREAST TISSUE) Procedures: [place] Granda/Gunner Rodas/Samanta L4/2 Patient: Latha Steel [id number] (Continued) Specimen: [id number] Received: 02/07/21 (Continued) Gross Description (Continued) are grossly identified. Pocket Cutter sections are submitted in four cassettes labeled B1- B4. (ALMA/DUYEN) Microscopic Description A. Four glass slides with H E stained material have been examined. The microscopic findings support the above pathologic diagnosis. B. Four glass slides with H E stained material have been examined. The microscopic findings support the above pathologic diagnosis. [id number] Specimen: [id number] Received: 02/07/21 Status: YANNA Beard Num: [id number] Spec Type: Surgical Subm Dr: Ranjit Coe MD Tissues: A Breast Reduction - Mammoplasty (RIGHT BREAST TISSUE) B Breast Reduction - Mammoplasty (LEFT BREAST TISSUE) Procedures: HE Stain/8, Gross/Micro L4/2 Patient: Latha Steel [id number] (Continued) (more content not included)... 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 This test has not been FDA [...] is terminated or revoked sooner. PERFORMED BY: [place] [address] PATHOLOGIST BU[employer]ING WHE[employer]ER WENDY TRUONG M.D. Performed By: #### C OVID 19 [facility] [place] #### [id number] [facility] Encounters Encounter Date Encounter Type Care Provider [...] Facility:[facility]1 Payers Date Payer Category Payer Unknown [id number] 2.16.84 [id number] 2001 Unknown [id number] 2.16.84 [id number] 2001 Unknown [id number] 2.16.84 [id number] 2001 Unknown [id number] 2.16.84 [id number] 2001 Unknown [id number] 2.16.84 [id number] 2001 Unknown [id number] 2.16.84 [id number] 1959 Self-pay 1959 Unknown [id number] Summary Purpose Family History No Family History Records FoundNo Family History Records FoundNo Family History Records Found Advance Directives No Advanced Directives Records FoundNo Advanced Directives Records FoundNo Advanced Directives Records Found Additional Source Comments INFORMATION SOURCE (unrecogn ized section and content) DATE CREATED AUTHOR 08/11/2021 [facility] DATE CREATED AUTHOR AUTHOR'S ORGANIZ ATION 12/09/2022 [facility] DATE CREATED AUTHOR AUTHOR'S ORGANIZ ATION 01/15/2024 [facility] dical Specialists [facility] FOR RECORDS PERTAINING TO PATIENTS WHO ARE [...] BE BASED ON THE PRIMARY CLINICAL RECORDS. [facility] [employer] [facility]. provides no warranty or guarantee of the accuracy or completeness of information in this document.
[2024-03-16 01:09] LABS: Gest. Age on Collection Date 21.6 weeks (.); Insulin Dep Diabetes No (.); Maternal Age At EDD 23.2 yr (.); OSBR Risk 1 IN 6704 (.); Results Report (.)
== END 2024-03-12 08:17 | disposition home or self-care (01) ==
PROVIDERS: PCP Family Medicine; Visit Provider Physician Assistant
DX: Z34.92 Encounter for supervision of normal pregnancy, unspecified, second trimester (principal); Z36.1 Encounter for antenatal screening for raised alphafetoprotein level
CPT/HCPCS: 36415; 82105

== ENCOUNTER 2024-04-08 09:41 | Outpatient (OUT) | payer BC, MEDICAID, SELFPAY ==
--- OUTSIDE RECORDS SUMMARY | 2024-04-08 09:56 | XMS_ITS | CCD ---
Author Organization [facility] Care Team Providers Care Milieu Manager Name Role Phone MARKER ., DR STINSON [...] [employer] Consult[employer] Unavailable ROOSEVELT CHIN Attending Unavailable CELINE MEZA Attending Unavailable ROOSEVELT CHIN Attending Unavailable CELINE MEZA Attending Unavailable Problems Active Problems Problem Classification [...] CK [Catalytic activity/Vol] 102 U/L Normal 26-192 [facility] Comment on above: Performed By: #### C BC #### [facility] [address] [place] [address] Dr. Michelle Cali CK.MB [Mass/Vol] 0.74 ng/mL Normal <=3.60 [facility] Comment on above: Performed By: #### C BC #### [facility] [address] [address] [address] Michelle Cali HSTROP 7.7 pg/mL Normal 4.0-51.3 [facility] Comment on above: Result Comment: CUT- OFF POINTS HAVE BEEN ESTABLISHED BASED ON THE FOURTH UNIVERSAL DEFINITIONS OF MYOCARDIAL INFARCTION. THE UPPER REFERENCE LIMIT (URL) OF TROPONIN, DEFINED THE 99TH PERCENTILE OF cTnI DISTRIBUTION IN A REFERENCE POPULATION, HAS BEEN CONFIRMED THE DECISION THRESHOLD FOR GA DIAGNOSIS. Performed By: #### C BC #### [facility] [address] [address] [address] Michelle Cali SHAHNAZ 24 ng/mL Normal 9-82 [facility] Comment on above: Performed By: #### C BC #### [facility] [address] [address] [address] Michelle Cali CBC AUTO DIFFon 12-04-2022 BASO # 0.1 103/ul Normal 0.0-0.1 [facility] Comment on above: Performed By: #### C BC #### [facility] [address] [address] [address] Michelle Cali Basophils/100 WBC (Bld) 0.9 % Normal 0.2-2.0 [facility] Comment on above: Performed By: #### C BC #### [facility] [address] [address] [address] Michelle Cali EO # 0.1 103/ul Normal 0.0-0.7 [facility] Comment on above: Performed By: #### C BC #### [facility] [address] [place] [address] Dr. Michelle Cali Eosinophils/100 WBC (Bld) 0.6 % Critically low 0.9-7.0 [facility] Comment on above: Performed By: #### C BC #### [facility] [address] [place] [address] Dr. Michelle Cali Erythrocyte distribution width (RBC) [Ratio] 12.3 % Normal 11.0-15.0 [facility] Comment on above: Performed By: #### C BC #### [facility] [address] [place] [address] Dr. Michelle Cali Hematocrit (Bld) [Volume fraction] 40.3 % Normal 36.0-48.0 [facility] Comment on above: Performed By: #### C BC #### [facility] [address] [place] [address] Dr. Michelle Cali Hemoglobin (Bld) [Mass/Vol] 13.2 g/dL Normal 12.0-16.0 [facility] Comment on above: Performed By: #### C BC #### [facility] [address] [place] [address] Dr. Michelle Cali IG # 0.03 10e3/ul Normal 0.00-0.03 [facility] Comment on above: Performed By: #### C BC #### [facility] [address] [place] [address] Dr. Michelle Cali IG % 0.3 % Normal 0.0-0.5 [facility] Comment on above: Performed By: #### C BC #### [facility] [address] [address] [address] Michelle Cali LYMPH # 4.1 103/ul Critically high 1.2-3.8 [facility] Comment on above: Performed By: #### C BC #### [facility] [address] [address] [address] Michelle Cali Lymphocytes/100 WBC (Bld) 39.9 % Normal 20.5-60.0 [facility] Comment on above: Performed By: #### C BC #### [facility] [address] [place] [address] Dr. Michelle Cali MANUAL DIFF REQ NO Normal [facility] Comment on above: Performed By: #### C BC #### [facility] [address] [place] [address] Dr. Michelle Cali MCH (RBC) [Entitic mass] 29.8 pg Normal 26.7-34.0 [facility] Comment on above: Performed By: #### C BC #### [facility] [address] [place] [address] Dr. Michelle Cali MCHC (RBC) [Mass/Vol] 32.8 g/dL Normal 29.9-35.2 [facility] Comment on above: Performed By: #### C BC #### [facility] [address] [place] [address] Dr. Michelle Cali MCV (RBC) [Entitic vol] 91.0 fL Normal 81.0-99.0 [facility] Comment on above: Performed By: #### C BC #### [facility] [address] [place] [address] Dr. Michelle Cali MONO # 0.5 103/ul Normal 0.3-0.8 [facility] Comment on above: Performed By: #### C BC #### [facility] [address] [place] [address] Dr. Michelle Cali Monocytes/100 WBC (Bld) 5.2 % Normal 1.7-12.0 [facility] Comment on above: Performed By: #### C BC #### [facility] [address] [place], [place] [id number] Dr. Michelle Cali NEUT # 5.4 103/ul Normal 1.4-6.5 [facility] Comment on above: Performed By: #### C BC #### [facility] [address] [place] [address] Dr. Michelle Cali Neutrophils/100 WBC (Bld) 53.1 % Normal 43.0-75.0 [facility] Comment on above: Performed By: #### C BC #### [facility] [address] [place] [address] Dr. Michelle Cali Platelet mean volume (Bld) [Entitic vol] 10.6 fL Normal 9.5-13.5 [facility] Comment on above: Performed By: #### C BC #### [facility] [address] [place] [address] Dr. Michelle Cali PLT 310 103/ul Normal 150-450 [facility] Comment on above: Performed By: #### C BC #### [facility] [address] [place] [address] Dr. Michelle Cali RBC 4.43 106/ul Normal 4.20-5.40 [facility] Comment on above: Performed By: #### C BC #### [facility] [address] [place] [address] Dr. Michelle Cali WBC 10.2 103/ul Normal 4.0-11.0 [facility] Comment on above: Performed By: #### C BC #### [facility] [address] [place] [address] Dr. Michelle Cali D-DIMERon 12-04-2022 D-DIMER 0.19 mg/L FEU Normal <=0.59 [facility] Comment on above: Performed By: #### C BC #### [facility] [address] [place] [address] Dr. Michelle Cali D-DIMER COMMENTS SEE BELOW Normal [facility] Comment on above: Result Comment: Incr [...] hospitalization. Performed By: #### C BC #### [facility] [address] [place] [address] Dr. Michelle Cali ER URINE PROFILEon 3 Bilirubin Ql (U) Negative Normal NEGATIVE [facility] Comment on above: Performed By: #### P REGU, ERUR #### [facility] [address] [place] [address] Dr. Michelle Cali Clarity (U) CLEAR Normal CLEAR [facility] Comment on above: Performed By: #### P REGU, ERUR #### [facility] [address] [place] [address] Dr. Michelle Cali Color (U) YELLOW Normal YELLOW [facility] Comment on above: Performed By: #### P REGU, ERUR #### [facility] [address] [place] [address] Dr. Michelle LUCASAHD A micrscopic examination will be performed if indicated. Normal [facility] Comment on above: Performed By: #### P REGU, ERUR #### [facility] [address] [place] [address] Dr. Michelle Cali Glucose Ql (U) Negative Normal NEGATIVE [facility] Comment on above: Performed By: #### P REGU, ERUR #### [facility] [address] [place] [address] Dr. Michelle Cali Hemoglobin Ql (U) Negative Normal NEGATIVE [facility] Comment on above: Performed By: #### P REGU, ERUR #### [facility] [address] [place] [address] Dr. Michelle Cali Ketones Ql (U) Negative Normal NEGATIVE [facility] Comment on above: Performed By: #### P REGU, ERUR #### [facility] [address] [place] [address] Dr. Michelle Cali LEUKOCYTES Negative Normal NEGATIVE [facility] Comment on above: Performed By: #### P REGU, ERUR #### [facility] [address] [address] [address] Michelle Cali Nitrite Ql (U) Negative Normal NEGATIVE [facility] Comment on above: Performed By: #### P REGU, ERUR #### [facility] [address] [address] [address] Michelle Cali pH (U) 6.0 [pH] Normal 5-9 [facility] Comment on above: Performed By: #### P REGU, ERUR #### [facility] [address] [address] [address] Michelle Cali SPEC GRAVITY >=1.030 Abnormal 1.005-<=1.025 [facility] Comment on above: Performed By: #### P REGU, ERUR #### [facility] [address] [address] [address] Michelle Cali UA PROTEIN TRACE Normal NEGATIVE/ TRACE [facility] Comment on above: Performed By: #### P REGU, ERUR #### [facility] [address] [address] [address] Michelle Cali UR MICRO IND NOT INDICATED Normal [facility] Comment on above: Performed By: #### P REGU, ERUR #### [facility] [address] [address] [address] Michelle Cali Urobilinogen Qn (U) 0.2 {Kalyan'U}/dL Normal 0.2 - 1. 0 [facility] Comment on above: Performed By: #### P REGU, ERUR #### [facility] [address] [address] [address] Michelle Cali URon 12-04-2022 , QUAL Negative Normal NEGATIVE [facility] Comment on above: Performed By: #### P REGU, ERUR #### [facility] [address] [address] [address] Michelle Cali PROF 14(COMP METB)on 023 Albumin [Mass/Vol] 3.9 g/dL Normal 3.4-5.0 [facility] Comment on above: Performed By: #### C BC #### [facility] [address] [place] [address] Dr. Michelle Cali Albumin/Globulin [Mass ratio] 1.0 {ratio} Normal [facility] Comment on above: Performed By: #### C BC #### [facility] [address] [address] [address] Michelle Cali ALP [Catalytic activity/Vol] 69 U/L Normal 46-116 [facility] Comment on above: Performed By: #### C BC #### [facility] [address] [address] [address] Michelle Cali ALT [Catalytic activity/Vol] 13 U/L Critically low 14-59 [facility] Comment on above: Performed By: #### C BC #### [facility] [address] [place] [address] Dr. Michelle Cali Anion gap [Moles/Vol] 13.6 mmol/L Normal [facility] Comment on above: Performed By: #### C BC #### [facility] [address] [address] [address] Michelle Cali AST [Catalytic activity/Vol] 11 U/L Critically low 15-37 [facility] Comment on above: Performed By: #### C BC #### [facility] [address] [place] [address] Dr. Michelle Cali Bilirubin [Mass/Vol] 0.3 mg/dL Normal 0.2-1.0 [facility] Comment on above: Performed By: #### C BC #### [facility] [address] [place] [address] Dr. Michelle Cali Calcium [Mass/Vol] 9.0 mg/dL Normal 8.5-10.1 [facility] Comment on above: Performed By: #### C BC #### [facility] [address] [place] [address] Dr. Michelle Cali Chloride [Moles/Vol] 105 mmol/L Normal 98-107 [facility] Comment on above: Performed By: #### C BC #### [facility] [address] [address] [address] Michelle Cali CO2 [Moles/Vol] 26.8 mmol/L Normal 21.0-32.0 [facility] Comment on above: Performed By: #### C BC #### [facility] [address] [address] [address] Michelle Cali Creatinine [Mass/Vol] 0.82 mg/dL Normal 0.55-1.02 [facility] Comment on above: Performed By: #### C BC #### [facility] [address] [place] [address] Dr. Michelle Cali EGFR-AF MONTSERRATIAN >60 Normal >=60 [facility] Comment on above: Performed By: #### C BC #### [facility] [address] [place] [address] Dr. Michelle Cali EGFR-NON AF MONTSERRATIAN >60 Normal >=60 [facility] Comment on above: Performed By: #### C BC #### [facility] [address] [place] [address] Dr. Michelle Cali Globulin (S) [Mass/Vol] 3.8 g/dL Normal [facility] Comment on above: Performed By: #### C BC #### [facility] [address] [place] [address] Dr. Michelle Cali Glucose [Mass/Vol] 104 mg/dL Normal 74-106 [facility] Comment on above: Performed By: #### C BC #### [facility] [address] [place] [address] Dr. Michelle Cali Potassium [Moles/Vol] 3.4 mmol/L Critically low 3.5-5.1 [facility] Comment on above: Performed By: #### C BC #### [facility] [address] [place] [address] Dr. Michelle Cali Protein [Mass/Vol] 7.7 g/dL Normal 6.4-8.2 [facility] Comment on above: Performed By: #### C BC #### [facility] [address] [place], [place] [id number] Dr. Michelle Cali Sodium [Moles/Vol] 142 mmol/L Normal 136-145 [facility] Comment on above: Performed By: #### C BC #### [facility] [address] [place] [address] Dr. Michelle Cali Urea nitrogen [Mass/Vol] 9.0 mg/dL Normal 7.0-18.0 [facility] Comment on above: Performed By: #### C BC #### [facility] [address] [place] [address] Dr. Michelle Cali Urea nitrogen/Creatinine [Mass ratio] 11.0 mg/mg Normal [facility] Comment on above: Performed By: #### C BC #### [facility] [address] [place] [address] Dr. Michelle Cali TSHon 12-04-2022 TSH 6.358 uIU/mL Critically high 0.358-3.740 [facility] Comment on above: Performed By: #### C BC #### [facility] [address] [place] [address] Dr. Michelle Cali INSULINon 09-19-2022 Insulin 6.8 uIU/mL Normal 2.6-24.9 [facility] Comment on above: Performed By: #### C BC #### [facility] [address] [place] [address] Dr. Michelle Cali CBC AUTO DIFFon 09-18-2022 BASO # 0.1 103/ul Normal 0.0-0.1 [facility] Comment on above: Performed By: #### C BC #### [facility] [address] [place] [address] Dr. Michelle Cali Basophils/100 WBC (Bld) 0.8 % Normal 0.2-2.0 [facility] Comment on above: Performed By: #### C BC #### [facility] [address] [place] [address] Dr. Michelle Cali EO # 0.1 103/ul Normal 0.0-0.7 [facility] Comment on above: Performed By: #### C BC #### [facility] [address] [place] [address] Dr. Michelle Cali Eosinophils/100 WBC (Bld) 0.8 % Critically low 0.9-7.0 [facility] Comment on above: Performed By: #### C BC #### [facility] [address] [place] [address] Dr. Michelle Cali Erythrocyte distribution width (RBC) [Ratio] 12.4 % Normal 11.0-15.0 [facility] Comment on above: Performed By: #### C BC #### [facility] [address] [place] [address] Dr. Michelle Cali Hematocrit (Bld) [Volume fraction] 41.6 % Normal 36.0-48.0 [facility] Comment on above: Performed By: #### C BC #### [facility] [address] [place] [address] Dr. Michelle Cali Hemoglobin (Bld) [Mass/Vol] 14.3 g/dL Normal 12.0-16.0 [facility] Comment on above: Performed By: #### C BC #### [facility] [address] [place] [address] Dr. Michelle Cali IG # 0.03 10e3/ul Normal 0.00-0.03 [facility] Comment on above: Performed By: #### C BC #### [facility] [address] [place] [address] Dr. Michelle Cali IG % 0.3 % Normal 0.0-0.5 [facility] Comment on above: Performed By: #### C BC #### [facility] [address] [place] [address] Dr. Michelle Cali LYMPH # 3.1 103/ul Normal 1.2-3.8 [facility] Comment on above: Performed By: #### C BC #### [facility] [address] [place] [address] Dr. Michelle Cali Lymphocytes/100 WBC (Bld) 32.8 % Normal 20.5-60.0 [facility] Comment on above: Performed By: #### C BC #### [facility] [address] [place] [address] Dr. Michelle Cali MANUAL DIFF REQ NO Normal [facility] Comment on above: Performed By: #### C BC #### [facility] [address] [place] [address] Dr. Michelle Cali MCH (RBC) [Entitic mass] 29.5 pg Normal 26.7-34.0 [facility] Comment on above: Performed By: #### C BC #### [facility] [address] [place] [address] Dr. Michelle Cali MCHC (RBC) [Mass/Vol] 34.4 g/dL Normal 29.9-35.2 [facility] Comment on above: Performed By: #### C BC #### [facility] [address] [place] [address] Dr. Michelle Cali MCV (RBC) [Entitic vol] 86.0 fL Normal 81.0-99.0 [facility] Comment on above: Performed By: #### C BC #### [facility] [address] [place] [address] Dr. Michelle Cali MONO # 0.5 103/ul Normal 0.3-0.8 [facility] Comment on above: Performed By: #### C BC #### [facility] [address] [place] [address] Dr. Michelle Cali Monocytes/100 WBC (Bld) 5.6 % Normal 1.7-12.0 [facility] Comment on above: Performed By: #### C BC #### [facility] [address] [place] [address] Dr. Michelle Cali NEUT # 5.7 103/ul Normal 1.4-6.5 [facility] Comment on above: Performed By: #### C BC #### [facility] [address] [place] [address] Dr. Michelle Cali Neutrophils/100 WBC (Bld) 59.7 % Normal 43.0-75.0 [facility] Comment on above: Performed By: #### C BC #### [facility] [address] [place] [address] Dr. Michelle Cali Platelet mean volume (Bld) [Entitic vol] 10.3 fL Normal 9.5-13.5 [facility] Comment on above: Performed By: #### C BC #### [facility] [address] [place] [address] Dr. Michelle Cali PLT 319 103/ul Normal 150-450 [facility] Comment on above: Performed By: #### C BC #### [facility] [address] [address] [address] Michelle Cali RBC 4.84 106/ul Normal 4.20-5.40 [facility] Comment on above: Performed By: #### C BC #### [facility] [address] [place] [address] Dr. Michelle Cali WBC 9.5 103/ul Normal 4.0-11.0 [facility] Comment on above: Performed By: #### C BC #### [facility] [address] [place] [address] Dr. Michelle Cali FREE THYROXINE INDEX T7on FTI 2.36 Normal 1.30-4.50 [facility] Comment on above: Performed By: #### T SH, CMP, T7, LIPID #### [facility] [address] [place] [address] Dr. Michelle Cali T3U 31.0 % Normal 30.0-39.0 [facility] Comment on above: Performed By: #### T SH, CMP, T7, LIPID #### [facility] [address] [place] [address] Dr. Michelle Cali T4 [Mass/Vol] 7.60 ug/dL Normal 4.80-13.90 [facility] Comment on above: Performed By: #### T SH, CMP, T7, LIPID #### [facility] [address] [place] [address] Dr. Michelle Cali GLYCOHEMOGLOBIN A1Con 2022 ADA RECOMMENDATION SEE BELOW Normal [facility] Comment on above: Result Comment: ADA RECOMMENDED LIMIT 4.0 - 6.0 ADA THERAPEUTIC TARGET < 7.0 ACTION SUGGESTED > 7.0 Performed By: #### C BC #### [facility] [address] [address] [address] Michelle Cali Glucose [Mass/Vol] 105 mg/dL Normal [facility] Comment on above: Performed By: #### C BC #### [facility] [address] [address] [address] Michelle Cali HbA1c (Bld) [Mass fraction] 5.3 % Normal 4.5-6.2 [facility] Comment on above: Performed By: #### C BC #### [facility] [address] [place] [address] Dr. Michelle Cali IRONon 09-18-2022 Iron [Mass/Vol] 80.0 ug/dL Normal 50.0-170.0 [facility] Comment on above: Performed By: #### I ABIGAIL #### [facility] [address] [place] [address] Dr. Michelle Cali LIPID PROFILEon 09-18-2022 CHOL-HDL RATIO NORM SEE BELOW Normal [facility] Comment on above: Result Comment: 3.3 - 4.4 LOW RISK 4.4 - 7.1 AVERAGE RISK 7.1 - 11.0 MODERATE RISK >11.0 HIGH RISK Performed By: #### T SH, CMP, T7, LIPID #### [facility] [address] [place] [address] Dr. Michelle Cali Cholesterol [Mass/Vol] 175 mg/dL Normal <=200 [facility] Comment on above: Performed By: #### T SH, CMP, T7, LIPID #### [facility] [address] [place] [address] Dr. Michelle Cali Cholesterol in HDL [Mass/Vol] 72 mg/dL Critically high 40-60 [facility] Comment on above: Performed By: #### T SH, CMP, T7, LIPID #### [facility] [address] [place] [address] Dr. Michelle Cali Cholesterol in LDL [Mass/Vol] 85.8 mg/dL Normal [facility] Comment on above: Performed By: #### T SH, CMP, T7, LIPID #### [facility] [address] [address] [address] Michelle Cali Cholesterol.total/Cho lesterol in HDL [Mass ratio] 2.4 {ratio} Normal [facility] Comment on above: Performed By: #### T SH, CMP, T7, LIPID #### [facility] [address] [address] [address] Michelle Cali HDL NORMAL > or = 60 mg/dl - LOW CARDIOVASCULAR RISK <40 mg/dl - HIGH CARDIOVASCULAR RISK Normal [facility] Comment on above: Performed By: #### T SH, CMP, T7, LIPID #### [facility] [address] [address] [address] Michelle Cali LDL CALC NORMAL SEE BELOW Normal [facility] Comment on above: Result Comment: <100 mg/dl OPTIMAL 100 - 129 mg/dl NEAR OR ABOVE OPTIMAL 130 - 159 mg/dl BORDERLINE HIGH 160 - 189 mg/dl HIGH >190 mg/dl VERY HIGH Performed By: #### T SH, CMP, T7, LIPID #### [facility] [address] [address] [address] Michelle Cali Triglyceride [Mass/Vol] 86 mg/dL Normal <=150 [facility] Comment on above: Performed By: #### T SH, CMP, T7, LIPID #### [facility] [address] [place] [address] Dr. Michelle Cali VLDL CALC 17.2 mg/dL Normal [facility] Comment on above: Performed By: #### T SH, CMP, T7, LIPID #### [facility] [address] [address] [address] Michelle Cali PROF 14(COMP METB)on 023 Albumin [Mass/Vol] 4.3 g/dL Normal 3.4-5.0 [facility] Comment on above: Performed By: #### T SH, CMP, T7, LIPID #### [facility] [address] [address] [address] Michelle Cali Albumin/Globulin [Mass ratio] 1.0 {ratio} Normal [facility] Comment on above: Performed By: #### T SH, CMP, T7, LIPID #### [facility] [address] [address] [address] Michelle Cali ALP [Catalytic activity/Vol] 65 U/L Normal 46-116 [facility] Comment on above: Performed By: #### T SH, CMP, T7, LIPID #### [facility] [address] [address] [address] Michelle Cali ALT [Catalytic activity/Vol] 17 U/L Normal 14-59 [facility] Comment on above: Performed By: #### T SH, CMP, T7, LIPID #### [facility] [address] [address] [address] Michelle Cali Anion gap [Moles/Vol] 12.2 mmol/L Normal [facility] Comment on above: Performed By: #### T SH, CMP, T7, LIPID #### [facility] [address] [place] [address] Dr. Michelle Cali AST [Catalytic activity/Vol] 15 U/L Normal 15-37 [facility] Comment on above: Performed By: #### T SH, CMP, T7, LIPID #### [facility] [address] [address] [address] Michelle Cali Bilirubin [Mass/Vol] 0.4 mg/dL Normal 0.2-1.0 [facility] Comment on above: Performed By: #### T SH, CMP, T7, LIPID #### [facility] [address] [address] [address] Michelle Cali Calcium [Mass/Vol] 9.4 mg/dL Normal 8.5-10.1 [facility] Comment on above: Performed By: #### T SH, CMP, T7, LIPID #### [facility] [address] [address] [address] Michelle Cali Chloride [Moles/Vol] 104 mmol/L Normal 98-107 [facility] Comment on above: Performed By: #### T SH, CMP, T7, LIPID #### [facility] [address] [address] [address] Michelle Cali CO2 [Moles/Vol] 27.7 mmol/L Normal 21.0-32.0 [facility] Comment on above: Performed By: #### T SH, CMP, T7, LIPID #### [facility] [address] [address] [address] Michelle Cali Creatinine [Mass/Vol] 0.63 mg/dL Normal 0.55-1.02 [facility] Comment on above: Performed By: #### T SH, CMP, T7, LIPID #### [facility] [address] [address] [address] Michelle Cali EGFR-AF MONTSERRATIAN >60 Normal >=60 [facility] Comment on above: Performed By: #### T SH, CMP, T7, LIPID #### [facility] [address] [place] [address] Dr. Michelle Cali EGFR-NON AF MONTSERRATIAN >60 Normal >=60 [facility] Comment on above: Performed By: #### T SH, CMP, T7, LIPID #### [facility] [address] [place] [address] Dr. Michelle Cali Globulin (S) [Mass/Vol] 4.2 g/dL Normal [facility] Comment on above: Performed By: #### T SH, CMP, T7, LIPID #### [facility] [address] [place] [address] Dr. Michelle Cali Glucose [Mass/Vol] 83 mg/dL Normal 74-106 [facility] Comment on above: Performed By: #### T SH, CMP, T7, LIPID #### [facility] [address] [place] [address] Dr. Michelle Cali Potassium [Moles/Vol] 3.9 mmol/L Normal 3.5-5.1 [facility] Comment on above: Performed By: #### T SH, CMP, T7, LIPID #### [facility] [address] [place] [address] Dr. Michelle Cali Protein [Mass/Vol] 8.5 g/dL Critically high 6.4-8.2 [facility] Comment on above: Performed By: #### T SH, CMP, T7, LIPID #### [facility] [address], [place] [address] Dr. Michelle Cali Sodium [Moles/Vol] 140 mmol/L Normal 136-145 [facility] Comment on above: Performed By: #### T SH, CMP, T7, LIPID #### [facility] [address], [place] [address] Dr. Michelle Cali Urea nitrogen [Mass/Vol] 9.0 mg/dL Normal 7.0-18.0 [facility] Comment on above: Performed By: #### T SH, CMP, T7, LIPID #### [facility] [address], [place] [address] Dr. Michelle Cali Urea nitrogen/Creatinine [Mass ratio] 14.3 mg/mg Normal [facility] Comment on above: Performed By: #### T SH, CMP, T7, LIPID #### [facility] [address], [place] [address] Dr. Michelle Cali TSHon 09-18-2022 TSH 1.245 uIU/mL Normal 0.358-3.740 [facility] Comment on above: Performed By: #### T SH, CMP, T7, LIPID #### [facility] [address], [place] [address] ABD/PELV W CONon [...] JEFFREY BEGUM Date: 2022-07-06 01:26 Normal [facility] CBC AUTO DIFFon 07-05-2022 BASO # 0.1 103/ul Normal 0.0-0.1 [facility] Comment on above: Performed By: #### C BC #### [facility] [address] [place] [address] Dr. Michelle Cali Basophils/100 WBC (Bld) 0.9 % Normal 0.2-2.0 [facility] Comment on above: Performed By: #### C BC #### [facility] [address] [address] [address] Michelle Cali EO # 0.1 103/ul Normal 0.0-0.7 [facility] Comment on above: Performed By: #### C BC #### [facility] [address] [address] [address] Michelle Cali Eosinophils/100 WBC (Bld) 1.0 % Normal 0.9-7.0 [facility] Comment on above: Performed By: #### C BC #### [facility] [address] [place] [address] Dr. Michelle Cali Erythrocyte distribution width (RBC) [Ratio] 12.5 % Normal 11.0-15.0 [facility] Comment on above: Performed By: #### C BC #### [facility] [address] [place] [address] Dr. Michelle Cali Hematocrit (Bld) [Volume fraction] 39.6 % Normal 36.0-48.0 [facility] Comment on above: Performed By: #### C BC #### [facility] [address] [place] [address] Dr. Michelle Cali Hemoglobin (Bld) [Mass/Vol] 13.6 g/dL Normal 12.0-16.0 [facility] Comment on above: Performed By: #### C BC #### [facility] [address] [address] [address] Michelle Cali IG # 0.02 10e3/ul Normal 0.00-0.03 [facility] Comment on above: Performed By: #### C BC #### [facility] [address] [place] [address] Dr. Michelle Cali IG % 0.2 % Normal 0.0-0.5 [facility] Comment on above: Performed By: #### C BC #### [facility] [address] [place] [address] Dr. Michelle Cali LYMPH # 4.0 103/ul Critically high 1.2-3.8 [facility] Comment on above: Performed By: #### C BC #### [facility] [address] [place] [address] Dr. Michelle Cali Lymphocytes/100 WBC (Bld) 44.0 % Normal 20.5-60.0 [facility] Comment on above: Performed By: #### C BC #### [facility] [address] [place] [address] Dr. Michelle Cali MANUAL DIFF REQ NO Normal [facility] Comment on above: Performed By: #### C BC #### [facility] [address] [place] [address] Dr. Michelle Cali MCH (RBC) [Entitic mass] 29.7 pg Normal 26.7-34.0 [facility] Comment on above: Performed By: #### C BC #### [facility] [address] [place] [address] Dr. Michelle Cali MCHC (RBC) [Mass/Vol] 34.3 g/dL Normal 29.9-35.2 [facility] Comment on above: Performed By: #### C BC #### [facility] [address] [place], [place] [address] Dr. Michelle Cali MCV (RBC) [Entitic vol] 86.5 fL Normal 81.0-99.0 [facility] Comment on above: Performed By: #### C BC #### [facility] [address] [place] [address] Dr. Michelle Cali MONO # 0.6 103/ul Normal 0.3-0.8 [facility] Comment on above: Performed By: #### C BC #### [facility] [address] [place] [address] Dr. Michelle Cali Monocytes/100 WBC (Bld) 6.7 % Normal 1.7-12.0 [facility] Comment on above: Performed By: #### C BC #### [facility] [address] [place] [address] Dr. Michelle Cali NEUT # 4.2 103/ul Normal 1.4-6.5 [facility] Comment on above: Performed By: #### C BC #### [facility] [address] [place] [address] Dr. Michelle Cali Neutrophils/100 WBC (Bld) 47.2 % Normal 43.0-75.0 [facility] Comment on above: Performed By: #### C BC #### [facility] [address] [place] [address] Dr. Michelle Cali Platelet mean volume (Bld) [Entitic vol] 11.4 fL Normal 9.5-13.5 [facility] Comment on above: Performed By: #### C BC #### [facility] [address] [place] [address] Dr. Michelle Cali PLT 342 103/ul Normal 150-450 [facility] Comment on above: Performed By: #### C BC #### [facility] [address] [place] [address] Dr. Michelle Cali RBC 4.58 106/ul Normal 4.20-5.40 [facility] Comment on above: Performed By: #### C BC #### [facility] [address] [place] [address] Dr. Michelle Cali WBC 9.0 103/ul Normal 4.0-11.0 [facility] Comment on above: Performed By: #### C BC #### [facility] [address] [place] [address] Dr. Michelle Cali PREG HCG QUALon 07-05-2022 , QUAL Negative Normal NEGATIVE [facility] Comment on above: Performed By: #### P REG #### [facility] [address] [place] [address] Dr. Michelle Cali PROF 14(COMP METB)on 022 Albumin [Mass/Vol] 4.4 g/dL Normal 3.4-5.0 [facility] Comment on above: Performed By: #### C BC #### [facility] [address] [place] [address] Dr. Michelle Cali Albumin/Globulin [Mass ratio] 1.1 {ratio} Normal [facility] Comment on above: Performed By: #### C BC #### [facility] [address] [place] [address] Dr. Michelle Cali ALP [Catalytic activity/Vol] 82 U/L Normal 46-116 [facility] Comment on above: Performed By: #### C BC #### [facility] [address] [place] [address] Dr. Michelle Cali ALT [Catalytic activity/Vol] 22 U/L Normal 14-59 [facility] Comment on above: Performed By: #### C BC #### [facility] [address] [place] [address] Dr. Michelle Cali Anion gap [Moles/Vol] 9.3 mmol/L Normal [facility] Comment on above: Performed By: #### C BC #### [facility] [address] [place] [address] Dr. Michelle Cali AST [Catalytic activity/Vol] 17 U/L Normal 15-37 [facility] Comment on above: Performed By: #### C BC #### [facility] [address] [place] [address] Dr. Michelle Cali Bilirubin [Mass/Vol] 0.5 mg/dL Normal 0.2-1.0 [facility] Comment on above: Performed By: #### C BC #### [facility] [address] [address] [address] Michelle Cali Calcium [Mass/Vol] 9.1 mg/dL Normal 8.5-10.1 [facility] Comment on above: Performed By: #### C BC #### [facility] [address] [address] [address] Michelle Cali Chloride [Moles/Vol] 104 mmol/L Normal 98-107 [facility] Comment on above: Performed By: #### C BC #### [facility] [address] [address] [address] Michelle Cali CO2 [Moles/Vol] 26.8 mmol/L Normal 21.0-32.0 [facility] Comment on above: Performed By: #### C BC #### [facility] [address] [place] [address] Dr. Michelle Cali Creatinine [Mass/Vol] 0.73 mg/dL Normal 0.55-1.02 [facility] Comment on above: Performed By: #### C BC #### [facility] [address] [place] [address] Dr. Michelle Cali EGFR-AF MONTSERRATIAN >60 Normal >=60 [facility] Comment on above: Performed By: #### C BC #### [facility] [address] [place] [address] Dr. Michelle Cali EGFR-NON AF MONTSERRATIAN >60 Normal >=60 [facility] Comment on above: Performed By: #### C BC #### [facility] [address] [address] [address] Michelle Cali Globulin (S) [Mass/Vol] 4.1 g/dL Normal [facility] Comment on above: Performed By: #### C BC #### [facility] [address] [place] [address] Dr. Michelle Cali Glucose [Mass/Vol] 84 mg/dL Normal 74-106 [facility] Comment on above: Performed By: #### C BC #### [facility] [address] [address] [address] Michelle Cali Potassium [Moles/Vol] 3.1 mmol/L Critically low 3.5-5.1 [facility] Comment on above: Performed By: #### C BC #### [facility] [address] [address] [address] Michelle Cali Protein [Mass/Vol] 8.5 g/dL Critically high 6.4-8.2 [facility] Comment on above: Performed By: #### C BC #### [facility] [address] [address] [address] Michelle Cali Sodium [Moles/Vol] 137 mmol/L Normal 136-145 [facility] Comment on above: Performed By: #### C BC #### [facility] [address] [address] [address] Michelle Cali Urea nitrogen [Mass/Vol] 13.0 mg/dL Normal 7.0-18.0 [facility] Comment on above: Performed By: #### C BC #### [facility] [address] [address] [address] Michelle Cali Urea nitrogen/Creatinine [Mass ratio] 17.8 mg/mg Normal [facility] Comment on above: Performed By: #### C BC #### [facility] [address] [address] [address] Michelle Cali HCG,Urineon 02-07-2021 Beta HCG ( test) Ql (U) Negative Normal [facility] Comment on above: Result Comment: PERF ORMED BY: [place] [address] PATHOLOGIST [employer] ATTENDANT WENDY TRUONG M.D. Performed By: #### U HCG #### [place] [address] [place] 02-07-2021 L Specimen: [id number] Received: 02/07/21 Status: YANNA Chirag Num: [id number] Spec Type: Surgical Subm Dr: Ranjit Coe MD Tissues: A Breast Reduction - Mammoplasty (RIGHT BREAST TISSUE) B Breast Reduction - Mammoplasty (LEFT BREAST TISSUE) Procedures: [place] Granda/Gunner Rodas/Samanta L4/2 Patient Age/Sex Location Account Attending Physician Latha Steel /F ID [id number] Ranjit Coe MD SPEC NUM: [id number] RECD: 02/07/21 STATUS: YESENIADelia BEARD NUM: [id number] YOUNG: 02/07/21- SUBM DR: Ranjit Coe MD ENTERED: 02/07/[address]: SPEC TYPE: Surgical DEPT: S ENTERED BY: [id number] RECV BY: [id number] ORDERED: HE Stain/8, Gross/Micro L4/2 ORDERED: HE [...] obvious masses or lesions are grossly identified. Barrel Rifler [place] sections are submitted in four cassettes labeled [...] tissue. No obvious masses or lesions Specimen: [id number] Received: 02/07/21 Status: YANNA Beard Num: [id number] Spec Type: Surgical Subm Dr: Ranjit Coe MD Tissues: A Breast Reduction - Mammoplasty (RIGHT BREAST TISSUE) B Breast Reduction - Mammoplasty (LEFT BREAST TISSUE) Procedures: HE Stain/8, Gross/Micro L4/2 Patient: Latha Steel [id number] (Continued) Specimen: [id number] Received: 02/07/21 (Continued) Gross Description (Continued) Signed (signature on file) Wendy Truong MD 02/08/21 1713 Specimen: [id number] Received: 02/07/21 Status: YANNA Beard Num: [id number] Spec Type: Surgical Subm Dr: Ranjit Coe MD Tissues: A Breast Reduction - Mammoplasty (RIGHT BREAST TISSUE) B Breast Reduction - Mammoplasty (LEFT BREAST TISSUE) Procedures: [place] Granda/Gunner Rodas/Samanta L4/2 Patient: Latha Steel [id number] (Continued) Specimen: [id number] Received: 02/07/21 (Continued) Gross Description (Continued) are grossly identified. Barrel R[place]ler [place] sections are submitted in four cassettes labeled B1- B4. (ALMA/DUYEN) Microscopic Description A. Four glass slides with H E stained material have been examined. The microscopic findings support the above pathologic diagnosis. B. Four glass slides with H E stained material have been examined. The microscopic findings support the above pathologic diagnosis. [id number] Specimen: [id number] Received: 02/07/21 Status: YANNA Beard Num: [id number] Spec Type: Surgical Subm Dr: Ranjit Coe MD Tissues: A Breast Reduction - Mammoplasty (RIGHT BREAST TISSUE) B Breast Reduction - Mammoplasty (LEFT BREAST TISSUE) Procedures: HE Stain/8, Gross/Micro L4/2 Patient: Latha Steel [id number] (Continued) (more content not included)... Normal [facility] COVID[place] [facility] [place] SARS-CoV-2 (COVID-19) RNA LALITO+probe Ql (Unsp spec) Negative Normal Negative [facility] Comment on above: Order Comment: Healt hcare Worker?: N Result Comment: Testing for SARS-CoV-2 by RT-PCR This test was developed and its performance characteristics determined by [employer]) and validated at the [facility]. This test has not been FDA cleared [...] is terminated or revoked sooner. PERFORMED BY: [address] [place] [address] PATHOLOGIST [employer] CH[employer] ATTENDANT WENDY TRUONG M.D. Performed By: #### C OVID 19 [facility] #### [id number] [facility] Encounters Encounter Date Encounter Type Care Provider Facility Start: 03-30-2024 End: 03-30-2024 ambulatory CELINE MEZA Not Available Start: 03-02-2024 End: 03-02-2024 ambulatory ROOSEVELT CHIN Not Available Start: 02-10-2024 End: 02-10-2024 ambulatory CELINE MEZA Not Available Start: 01-13-2024 End: 01-13-2024 ambulatory ROOSEVELT CHIN Not Available Start: 12-18-2023 End: 12-18-2023 ambulatory ROOSEVELT CHIN Not Available Start: 12-04-2022 End: 12-04-[address] SHANTELL SIMON . Facility:[facility] Start: 09-18-2022 End: 09-19-[address] JESUS ALMONTE . Facility:[facility] Start: 07-05-2022 End: 07-06-[address] JESUS ALMONTE . Facility:[facility] Start: 05-23-2022 End: 05-23-[address] JESUS ALMONTE . Facility:[facility] Payers Date Payer Category Payer Medicaid [id number] 2000 Unknown [id number] 2.16.84 [id number] 2001 Unknown [id number] 2.16.84 [id number] 2001 Unknown [id number] 2.16.84 [id number] 2001 Unknown [id number] 2.16.84 [id number] 2001 Unknown [id number] 2.16.84 [id number] 2001 Unknown [id number] 2.16.84 [id number] 2001 Unknown [id number] 2.16.84 [id number] 2001 Unknown [id number] 2.16.84 [id number] 2001 Unknown [id number] 2.16.84 [id number] 1959 Self-pay 1958 Unknown [id number] Summary Purpose Family History No Family History Records FoundNo Family History Records FoundNo Family History Records Found Advance Directives No Advanced Directives Records FoundNo Advanced Directives Records FoundNo Advanced Directives Records Found Additional Source Comments INFORMATION SOURCE (unrecogn ized section and content) DATE CREATED AUTHOR 08/11/2021 [facility] DATE CREATED AUTHOR AUTHOR'S ORGANIZ ATION 12/09/2022 [facility] DATE CREATED AUTHOR AUTHOR'S ORGANIZ ATION 04/01/2024 [facility] [employer] EPIC FOR RECORDS PERTAINING TO PATIENTS WHO ARE [...] BE BASED ON THE PRIMARY CLINICAL RECORDS. [facility] [employer] [facility]. provides no warranty or guarantee of the accuracy or completeness of information in this document.
[2024-04-08 10:39] LABS: Basophils Percent Auto 0.4 % (0.2-2.0); Eosinophils Percent Auto 0.3 % (0.9-7.0); Hemoglobin 10.9 g/dL (12.0-16.0); Immature Granulocytes Abs Auto 0.03 10^3/uL (0.00-0.03); Immature Granulocytes Pct Auto 0.3 % (0.0-0.5); Lymphocytes Absolute Auto 1.9 10^3/uL (1.2-3.8); Lymphocytes Percent Auto 20.2 % (20.5-60.0); Mean Corpuscular HGB Conc 34.1 g/dL (29.9-35.2); Mean Corpuscular Hemoglobin 30.4 pg (26.7-34.0); Mean Corpuscular Volume 89.1 fL (81.0-99.0); Mean Platelet Volume 11.4 fL (9.5-13.5); Monocytes Absolute Auto 0.4 10^3/uL (0.3-0.8); Monocytes Percent Auto 4.3 % (1.7-12.0); Neutrophils Percent Auto 74.5 % (43.0-75.0); Platelet Count 229 10^3/uL (150-450); Red Blood Count 3.59 10^6/uL (4.20-5.40); Red Cell Distribution Width 12.6 % (11.0-15.0); White Blood Count 9.4 10^3/uL (4.0-11.0)
[2024-04-08 13:09] LABS: Glucose 1 Hour 121 mg/dL (<130)
== END 2024-04-08 09:42 | disposition home or self-care (01) ==
LOC: LAB 09:42
PROVIDERS: PCP Family Medicine; Visit Provider Obstetrics & Gynecology
DX: Z13.1 Encounter for screening for diabetes mellitus (principal)
CPT/HCPCS: 36415; 82950; 85025

== ENCOUNTER 2024-05-10 13:55 | Outpatient (OUT) | payer BC, MEDICAID, SELFPAY ==
--- NOTE | 2024-05-10 13:58 | US_ITS ---
[address] [address] Patient Name: JAMES STEEL MRN: [id number] date: 2000 Sex: F Assigned Patient Location: [facility] Current Patient Location: [facility] Accession/Order Number: [id number] Exam Date: 05/10/2024 13:59 Report Date: 05/10/2024 14:40 At the request of: CELINE MEZA Procedure: US OB growth EXAMINATION: US OB growth HISTORY: SIZE INCONSISTENT WITH DATES COMPARISON: No relevant comparison available. FINDINGS: Heart Rate: 132 bpm Amniotic Fluid Volume: 12.4 cm, largest fluid pocket 4.5 cm Number: 1 Position: Cephalic presentation, longitudinal lie BIOMETRY: BPD: 7.76 cm; 31 weeks 1 day; 73.40 % HC: 28.38 cm; 31 weeks 1 day; 47.60 % AC: 26.24 cm; 30 weeks 3 days; 56.60 % FL: 5.96 cm; 30 weeks 0 days; 65.60 % EFW: 1611.44 g; 63.40 %, 3 lbs. 9 oz. FL/AC: 22.71 FL/BPD: 76.80 HC/AC: 1.08 GESTATIONAL AGE: Age by EDC: 30 weeks 0 days DEN by EDC: 2024-07-19 Age by US: 31 weeks DEN by US: 2024-07-12 US/US OB growth IMPRESSION: Normal interval growth Electronically authenticated by: JULISA ALVAREZ Date: 05/10/2024 14:40
--- OUTSIDE RECORDS SUMMARY | 2024-05-10 14:11 | XMS_ITS | CCD ---
Author Organization [facility]iniSyn[facility] Care Team Providers Care Baker Name Role Phone MARKER ., DR STINSON [...] Unavailable PAY ., DR TOLBERT Consulting Unavailable SHARAN ., DR LEE Primary Care Unavailable JAYANT, DR BRAIN Starks Admitting Unavailable JAYANT, DR BRAIN Starks Attending Unavailable JAYANT, DR BRAIN Starks Consulting Unavailable JEFFREY BEGUM Consulting Unavailable ROOSEVELT CHIN Attending Unavailable AGATA MEZA Attending Unavailable ROOSEVELT CHIN Attending Unavailable AGATA MEZA Attending Unavailable AGATA MEZA Attending Unavailable Sharan GRACE, Jesus Burton Primary Care Provider [phone] Medications Current Medications Medication Drug Class(es) Dates Sig (Normalized) Sig (Original) omeprazole 20 mg delayed release oral capsule (3 sources) Proton Pump Inhibitor Start: 03-30-2024 End: 04-29-2024 take 1 capsule by mouth before mealtime omeprazole (PriLOSEC) [address] lorna Indications: Gastroesophageal Reflux Disease , Heartburn Take 1 capsule (20 mg) by mouth in the morning. Take before meals. Do not crush or chew.. 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 tonsillitis and adenoiditis] Onset: 11-19-2023 11-19-2023 Chronic Cardiac dysrhythmias (4 sources) Palpitations; Translations: [PALPITATIONS] [...] [CHEST PAIN UNSPECIFIED] Onset: 09-18-2022 Episodic Other complications of (2 sources) size does not accord with dates; Translations: [Uterine size-date discrepancy, unspecified trimester] 04-27-2024 Episodic Other and delivery including normal (2 sources) Third trimester ; Translations: [Encounter for supervision of normal , unspecified, third trimester] 04-27-2024 Episodic Other upper respiratory disease (3 sources) Allergic rhinitis; Translations: [Allergic rhinitis, unspecified] Onset: 11-19-2023 11-19-2023 Chronic Other upper respiratory infections (1 source) Chronic sinusitis, unspecified; Translations: [CHRONIC SINUSITIS UNSPECIFIED] Onset: 05-26-2022 Chronic Residual codes; unclassified (3 sources) Upper airway resistance syndrome; Translations: [Other sleep disorders] Onset: 11-19-2023 11-19-2023 Chronic Residual codes; unclassified (2 sources) Gestation period, 28 weeks; Translations: [28 weeks gestation of ] 04-27-2024 Episodic Past or Other Problems Problem Classification Problem Date Documented Da te Episodic/Chronic Abdominal pain (1 source) Left upper quadrant pain; Translations: [LEFT UPPER QUADRANT PAIN] Onset: 07-08-2022 Episodic Nausea and vomiting (4 sources) Nausea; Translations: [Nausea with vomiting, unspecified] Onset: 07-05-2022 Episodic Other infections; including parasitic (3 sources) History of herpes zoster; Translations: [Personal history of other infectious and parasitic diseases] Onset: 11-23-2023 11-23-2023 Episodic Other infections; including parasitic (3 sources) Personal history of other infectious and parasitic diseases; Translations: [History of 2019 novel coronavirus disease (COVID-19)] Onset: 11-23-2023 11-23-2023 Episodic Other nervous system disorders (3 sources) History of Guillain Shelby syndrome; Translations: [Personal history of other diseases of the nervous system and sense organs] Onset: 11-23-2023 11-23-2023 Episodic Other nutritional; endocrine; and metabolic disorders (1 source) Abnormal weight loss; Translations: [ABNORMAL WEIGHT LOSS] Onset: 07-08-2022 Episodic Other upper respiratory disease (3 sources) Unspecified disorder of nose and nasal sinuses; Translations: [UNS DISORDER NOSE AND NASAL SINUSES] Onset: 05-23-2022 Episodic Other upper respiratory infections (6 sources) Acute frontal sinusitis; Translations: [Acute frontal sinusitis, unspecified] Onset: 11-19-2023 11-19-2023 Episodic Results Test Name Value Interpretation Reference Range Facility Urinalysis macro (dipstick) panel (U)on 04-27-2024 Bilirubin, UA Positive Negative - 4(70) +++ mg/dL [facility] Comment on above: small Blood, UA Positive Negative - 50 Gabriele/mcL [facility] Comment on above: large Clarity, UA Clear [facility] Color, UA Gay [facility] Glucose, UA Negative Negative - 1999(110) ++++ mg/dL [facility] Interpretation and review of laboratory results Abnormal [facility] Ketones, UA Positive Negative - 160(16) ++++ mg/dL [facility] Comment on above: 40 mg Leukocytes, UA Positive Negative - 500+++ Alexsandra/mcL [facility] Comment on above: small Nitrite, UA Negative Negative - Positive [facility] pH, UA 5.5 5 - 9 [facility] Protein, UA Positive Negative - 1999(20) ++++ mg/dL [facility] Comment on above: 30 mg Spec Grav, UA 1.030 1 - 1.03 [facility] care Urobilinogen, UA 1.0 0.2 - 12 mg/dL [facility] Cytology Cervical or vaginal smear or scraping studyon 04-21-2023 [facility] CARDIAC BRAIN ADMITon 023 CK [Catalytic activity/Vol] 102 U/L Normal 26-192 [facility] Comment on above: Performed By: #### C BC #### [facility] [address] [place] [address] Dr. Michelle Cali CK.MB [Mass/Vol] 0.74 ng/mL Normal <=3.60 [facility] Comment on above: Performed By: #### C BC #### [facility] [address] [place] [address] Dr. Michelle Cali HSTROP 7.7 pg/mL Normal 4.0-51.3 [facility] Comment on above: Result Comment: CUT- OFF POINTS HAVE BEEN ESTABLISHED BASED ON THE FOURTH UNIVERSAL DEFINITIONS OF MYOCARDIAL INFARCTION. THE UPPER REFERENCE LIMIT (URL) OF TROPONIN, DEFINED THE 99TH PERCENTILE OF cTnI DISTRIBUTION IN A REFERENCE POPULATION, HAS BEEN CONFIRMED THE DECISION THRESHOLD FOR CA DIAGNOSIS. Performed By: #### C BC #### [facility] [address] [place] [address] Dr. Michelle Cali SHAHNAZ 24 ng/mL Normal 9-82 [facility] Comment on above: Performed By: #### C BC #### [facility] [address] [place] [address] Dr. Michelle Cali CBC AUTO DIFFon 12-04-2022 BASO # 0.1 103/ul Normal 0.0-0.1 [facility] Comment on above: Performed By: #### C BC #### [facility] [address] [place] [address] Dr. Michelle Cali Basophils/100 WBC (Bld) 0.9 % Normal 0.2-2.0 [facility] Comment on above: Performed By: #### C BC #### [facility] [address] [place] [address] Dr. Michelle Cali EO # 0.1 103/ul Normal 0.0-0.7 [facility] Comment on above: Performed By: #### C BC #### [facility] [address] [place] [address] Dr. Michelle Cali Eosinophils/100 WBC (Bld) 0.6 % Critically low 0.9-7.0 [facility] Comment on above: Performed By: #### C BC #### [facility] [address] [place] [address] Dr. Michelle Cali Erythrocyte distribution width (RBC) [Ratio] 12.3 % Normal 11.0-15.0 [facility] Comment on above: Performed By: #### C BC #### [facility] [address] [place] [address] Dr. Michelle Cali Hematocrit (Bld) [Volume fraction] 40.3 % Normal 36.0-48.0 [facility] Comment on above: Performed By: #### C BC #### [facility] [address] [place] [address] Dr. Michelle Cali Hemoglobin (Bld) [Mass/Vol] 13.2 g/dL Normal 12.0-16.0 [facility] Comment on above: Performed By: #### C BC #### [facility] [address] [place] [address] Dr. Michelle Cali IG # 0.03 10e3/ul Normal 0.00-0.03 [facility] Comment on above: Performed By: #### C BC #### [facility] [address] [place] [address] Dr. Michelle Cali IG % 0.3 % Normal 0.0-0.5 [facility] Comment on above: Performed By: #### C BC #### [facility] [address] [place] [address] Dr. Michelle Cali LYMPH # 4.1 103/ul Critically high 1.2-3.8 [facility] Comment on above: Performed By: #### C BC #### [facility] [address] [place] [address] Dr. Michelle Cali Lymphocytes/100 WBC (Bld) 39.9 % Normal 20.5-60.0 [facility] Comment on above: Performed By: #### C BC #### [facility] [address] [place] [address] Dr. Michelle Cali MANUAL DIFF REQ NO Normal [facility] Comment on above: Performed By: #### C BC #### [facility] [address] [place] [address] Dr. Michelle Cali MCH (RBC) [Entitic mass] 29.8 pg Normal 26.7-34.0 [facility] Comment on above: Performed By: #### C BC #### [facility] [address] [place] [address] Dr. Michelle Cali MCHC (RBC) [Mass/Vol] 32.8 g/dL Normal 29.9-35.2 [facility] Comment on above: Performed By: #### C BC #### [facility] [address] [place] [address] Dr. Michelle Cali MCV (RBC) [Entitic vol] 91.0 fL Normal 81.0-99.0 [facility] Comment on above: Performed By: #### C BC #### [facility] [address] [place] [address] Dr. Michelle Cali MONO # 0.5 103/ul Normal 0.3-0.8 [facility] Comment on above: Performed By: #### C BC #### [facility] [address] [place] [address] Dr. Michelle Cali Monocytes/100 WBC (Bld) 5.2 % Normal 1.7-12.0 [facility] Comment on above: Performed By: #### C BC #### [facility] [address] [place] [address] Dr. Michelle Cali NEUT # 5.4 103/ul Normal 1.4-6.5 [facility] Comment on above: Performed By: #### C BC #### [facility] [address] [place] [address] Dr. Michelle Cali Neutrophils/100 WBC (Bld) 53.1 % Normal 43.0-75.0 [facility] Comment on above: Performed By: #### C BC #### [facility] [address] [place] [address] Dr. Michelle Cali Platelet mean volume (Bld) [Entitic vol] 10.6 fL Normal 9.5-13.5 [facility] Comment on above: Performed By: #### C BC #### [facility] [address] [place] [address] Dr. Michelle Cali PLT 310 103/ul Normal 150-450 [facility] Comment on above: Performed By: #### C BC #### [facility] [address] [place] [address] Dr. Michelle Cali RBC 4.43 106/ul Normal 4.20-5.40 [facility] Comment on above: Performed By: #### C BC #### [facility] [address] [place] [address] Dr. Michelle Cali WBC 10.2 103/ul Normal 4.0-11.0 [facility] Comment on above: Performed By: #### C BC #### [facility] [address] [place] [address] Dr. Michelle Cali D-DIMERon 12-04-2022 D-DIMER 0.19 mg/L FEU Normal <=0.59 [facility] Comment on above: Performed By: #### C BC #### [facility] [address] [place] [address] Dr. Michelle Cali D-DIMER COMMENTS SEE BELOW Normal [facility] Comment on above: Result Comment: Incr [...] hospitalization. Performed By: #### C BC #### [facility] [address] [place] [address] Dr. Michelle Cali ER URINE PROFILEon 3 Bilirubin Ql (U) Negative Normal NEGATIVE [facility] Comment on above: Performed By: #### P REGU, ERUR #### [facility] [address] [address] [address] Michelle Cali Clarity (U) CLEAR Normal CLEAR [facility] Comment on above: Performed By: #### P REGU, ERUR #### [facility] [address] [address] [address] Michelle Cali Color (U) YELLOW Normal YELLOW [facility] Comment on above: Performed By: #### P REGU, ERUR #### [facility] [address] [address] [address] Michelle FRITZ A micrscopic examination will be performed if indicated. Normal [facility] Comment on above: Performed By: #### P REGU, ERUR #### [facility] [address] [address] [address] Michelle Cali Glucose Ql (U) Negative Normal NEGATIVE [facility] Comment on above: Performed By: #### P REGU, ERUR #### [facility] [address] [address] [address] Michelle Cali Hemoglobin Ql (U) Negative Normal NEGATIVE [facility] Comment on above: Performed By: #### P REGU, ERUR #### [facility] [address] [address] [address] Michelle Cali Ketones Ql (U) Negative Normal NEGATIVE [facility] Comment on above: Performed By: #### P REGU, ERUR #### [facility] [address] [address] [address] Michelle Cali LEUKOCYTES Negative Normal NEGATIVE [facility] Comment on above: Performed By: #### P REGU, ERUR #### [facility] [address] [place] [address] Dr. Michelle Cali Nitrite Ql (U) Negative Normal NEGATIVE [facility] Comment on above: Performed By: #### P REGU, ERUR #### [facility] [address] [address] [address] Michelle Cali pH (U) 6.0 [pH] Normal 5-9 [facility] Comment on above: Performed By: #### P REGU, ERUR #### [facility] [address] [place] [address] Dr. Michelle Cali SPEC GRAVITY >=1.030 Abnormal 1.005-<=1.025 [facility] Comment on above: Performed By: #### P REGU, ERUR #### [facility] [address] [place] [address] Dr. Michelle Cali UA PROTEIN TRACE Normal NEGATIVE/ TRACE [facility] Comment on above: Performed By: #### P REGU, ERUR #### [facility] [address] [place] [address] Dr. Michelle Cali UR MICRO IND NOT INDICATED Normal [facility] Comment on above: Performed By: #### P REGU, ERUR #### [facility] [address] [place] [address] Dr. Michelle Cali Urobilinogen Qn (U) 0.2 {Kalyan'U}/dL Normal 0.2 - 1. 0 [facility] Comment on above: Performed By: #### P REGU, ERUR #### [facility] [address] [place] [address] Dr. Michelle Cali URon 12-04-2022 , QUAL Negative Normal NEGATIVE [facility] Comment on above: Performed By: #### P REGU, ERUR #### [facility] [address] [place] [address] Dr. Michelle Cali PROF 14(COMP METB)on 023 Albumin [Mass/Vol] 3.9 g/dL Normal 3.4-5.0 [facility] Comment on above: Performed By: #### C BC #### [facility] [address] [place] [address] Dr. Michelle Cali Albumin/Globulin [Mass ratio] 1.0 {ratio} Normal [facility] Comment on above: Performed By: #### C BC #### [facility] [address] [place] [address] Dr. Michelle Cali ALP [Catalytic activity/Vol] 69 U/L Normal 46-116 [facility] Comment on above: Performed By: #### C BC #### [facility] [address] [place] [address] Dr. Michelle Cali ALT [Catalytic activity/Vol] 13 U/L Critically low 14-59 [facility] Comment on above: Performed By: #### C BC #### [facility] [address] [address] [address] Michelle Cali Anion gap [Moles/Vol] 13.6 mmol/L Normal [facility] Comment on above: Performed By: #### C BC #### [facility] [address] [address] [address] Michelle Cali AST [Catalytic activity/Vol] 11 U/L Critically low 15-37 [facility] Comment on above: Performed By: #### C BC #### [facility] [address] [address] [address] Michelle Cali Bilirubin [Mass/Vol] 0.3 mg/dL Normal 0.2-1.0 [facility] Comment on above: Performed By: #### C BC #### [facility] [address] [address] [address] Michelle Cali Calcium [Mass/Vol] 9.0 mg/dL Normal 8.5-10.1 [facility] Comment on above: Performed By: #### C BC #### [facility] [address] [address] [address] Michelle Cali Chloride [Moles/Vol] 105 mmol/L Normal 98-107 [facility] Comment on above: Performed By: #### C BC #### [facility] [address] [address] [address] Michelle Cali CO2 [Moles/Vol] 26.8 mmol/L Normal 21.0-32.0 [facility] Comment on above: Performed By: #### C BC #### [facility] [address] [address] [address] Michelle Cali Creatinine [Mass/Vol] 0.82 mg/dL Normal 0.55-1.02 [facility] Comment on above: Performed By: #### C BC #### [facility] [address] [address] [address] Michelle Cali EGFR-AF BHUTANESE >60 Normal >=60 [facility] Comment on above: Performed By: #### C BC #### [facility] [address] [place] [address] Dr. Michelle Cali EGFR-NON AF BHUTANESE >60 Normal >=60 [facility] Comment on above: Performed By: #### C BC #### [facility] [address] [place] [address] Dr. Michelle Cali Globulin (S) [Mass/Vol] 3.8 g/dL Normal [facility] Comment on above: Performed By: #### C BC #### [facility] [address] [address] [address] Michelle Cali Glucose [Mass/Vol] 104 mg/dL Normal 74-106 [facility] Comment on above: Performed By: #### C BC #### [facility] [address] [place] [address] Dr. Michelle Cali Potassium [Moles/Vol] 3.4 mmol/L Critically low 3.5-5.1 [facility] Comment on above: Performed By: #### C BC #### [facility] [address] [place] [address] Dr. Michelle Cali Protein [Mass/Vol] 7.7 g/dL Normal 6.4-8.2 [facility] Comment on above: Performed By: #### C BC #### [facility] [address] [place] [address] Dr. Michelle Cali Sodium [Moles/Vol] 142 mmol/L Normal 136-145 [facility] Comment on above: Performed By: #### C BC #### [facility] [address] [place] [address] Dr. Michelle Cali Urea nitrogen [Mass/Vol] 9.0 mg/dL Normal 7.0-18.0 [facility] Comment on above: Performed By: #### C BC #### [facility] [address] [place] [address] Dr. Michelle Cali Urea nitrogen/Creatinine [Mass ratio] 11.0 mg/mg Normal [facility] Comment on above: Performed By: #### C BC #### [facility] [address] [place] [address] Dr. Michelle Cali TSHon 12-04-2022 TSH 6.358 uIU/mL Critically high 0.358-3.740 [facility] Comment on above: Performed By: #### C BC #### [facility] [address] [place] [address] Dr. Michelle Cali INSULINon 09-19-2022 Insulin 6.8 uIU/mL Normal 2.6-24.9 [facility] Comment on above: Performed By: #### C BC #### [facility] [address] [place] [address] Dr. Michelle Cali CBC AUTO DIFFon 09-18-2022 BASO # 0.1 103/ul Normal 0.0-0.1 [facility] Comment on above: Performed By: #### C BC #### [facility] [address] [place] [address] Dr. Michelle Cali Basophils/100 WBC (Bld) 0.8 % Normal 0.2-2.0 [facility] Comment on above: Performed By: #### C BC #### [facility] [address] [place] [address] Dr. Michelle Cali EO # 0.1 103/ul Normal 0.0-0.7 [facility] Comment on above: Performed By: #### C BC #### [facility] [address] [place] [address] Dr. Michelle Cali Eosinophils/100 WBC (Bld) 0.8 % Critically low 0.9-7.0 [facility] Comment on above: Performed By: #### C BC #### [facility] [address] [place] [address] Dr. Michelle Cali Erythrocyte distribution width (RBC) [Ratio] 12.4 % Normal 11.0-15.0 [facility] Comment on above: Performed By: #### C BC #### [facility] [address] [place] [address] Dr. Michelle Cali Hematocrit (Bld) [Volume fraction] 41.6 % Normal 36.0-48.0 [facility] Comment on above: Performed By: #### C BC #### [facility] [address] [place] [address] Dr. Michelle Cali Hemoglobin (Bld) [Mass/Vol] 14.3 g/dL Normal 12.0-16.0 [facility] Comment on above: Performed By: #### C BC #### [facility] [address] [place] [address] Dr. Michelle Cali IG # 0.03 10e3/ul Normal 0.00-0.03 [facility] Comment on above: Performed By: #### C BC #### [facility] [address] [place] [address] Dr. Michelle Cali IG % 0.3 % Normal 0.0-0.5 [facility] Comment on above: Performed By: #### C BC #### [facility] [address] [place] [address] Dr. Michelle Cali LYMPH # 3.1 103/ul Normal 1.2-3.8 [facility] Comment on above: Performed By: #### C BC #### [facility] [address] [place] [address] Dr. Michelle Cali Lymphocytes/100 WBC (Bld) 32.8 % Normal 20.5-60.0 [facility] Comment on above: Performed By: #### C BC #### [facility] [address] [place] [address] Dr. Michelle Cali MANUAL DIFF REQ NO Normal [facility] Comment on above: Performed By: #### C BC #### [facility] [address] [place] [address] Dr. Michelle Cali MCH (RBC) [Entitic mass] 29.5 pg Normal 26.7-34.0 [facility] Comment on above: Performed By: #### C BC #### [facility] [address] [place] [address] Dr. Michelle Cali MCHC (RBC) [Mass/Vol] 34.4 g/dL Normal 29.9-35.2 [facility] Comment on above: Performed By: #### C BC #### [facility] [address] [place] [address] Dr. Michelle Cali MCV (RBC) [Entitic vol] 86.0 fL Normal 81.0-99.0 [facility] Comment on above: Performed By: #### C BC #### [facility] [address] [place] [address] Dr. Michelle Cali MONO # 0.5 103/ul Normal 0.3-0.8 [facility] Comment on above: Performed By: #### C BC #### [facility] [address] [place] [address] Dr. Michelle Cali Monocytes/100 WBC (Bld) 5.6 % Normal 1.7-12.0 [facility] Comment on above: Performed By: #### C BC #### [facility] [address] [place] [address] Dr. Michelle Cali NEUT # 5.7 103/ul Normal 1.4-6.5 [facility] Comment on above: Performed By: #### C BC #### [facility] [address] [place] [address] Dr. Michelle Cali Neutrophils/100 WBC (Bld) 59.7 % Normal 43.0-75.0 [facility] Comment on above: Performed By: #### C BC #### [facility] [address] [place] [address] Dr. Michelle Cali Platelet mean volume (Bld) [Entitic vol] 10.3 fL Normal 9.5-13.5 [facility] Comment on above: Performed By: #### C BC #### [facility] [address] [place] [address] Dr. Michelle Cali PLT 319 103/ul Normal 150-450 [facility] Comment on above: Performed By: #### C BC #### [facility] [address] [address] [place] [address] Dr. Michelle Cali RBC 4.84 106/ul Normal 4.20-5.40 [facility] Comment on above: Performed By: #### C BC #### [facility] [address] [place] [address] Dr. Michelle Cali WBC 9.5 103/ul Normal 4.0-11.0 [facility] Comment on above: Performed By: #### C BC #### [facility] [address] [place] [address] Dr. Michelle Cali FREE THYROXINE INDEX T7on FTI 2.36 Normal 1.30-4.50 [facility] Comment on above: Performed By: #### T SH, CMP, T7, LIPID #### [facility] [address] [place] [address] Dr. Michelle Cali T3U 31.0 % Normal 30.0-39.0 [facility] Comment on above: Performed By: #### T SH, CMP, T7, LIPID #### [facility] [address] [place] [address] Dr. Michelle Cali T4 [Mass/Vol] 7.60 ug/dL Normal 4.80-13.90 [facility] Comment on above: Performed By: #### T SH, CMP, T7, LIPID #### [facility] [address] [place] [address] Dr. Michelle Cali GLYCOHEMOGLOBIN A1Con 2022 ADA RECOMMENDATION SEE BELOW Normal [facility] Comment on above: Result Comment: ADA RECOMMENDED LIMIT 4.0 - 6.0 ADA THERAPEUTIC TARGET < 7.0 ACTION SUGGESTED > 7.0 Performed By: #### C BC #### [facility] [address] [place] [address] Dr. Michelle Cali Glucose [Mass/Vol] 105 mg/dL Normal [facility] Comment on above: Performed By: #### C BC #### [facility] [address] [place] [address] Dr. Michelle Cali HbA1c (Bld) [Mass fraction] 5.3 % Normal 4.5-6.2 [facility] Comment on above: Performed By: #### C BC #### [facility] [address] [place] [address] Dr. Michelle Cali IRONon 09-18-2022 Iron [Mass/Vol] 80.0 ug/dL Normal 50.0-170.0 [facility] Comment on above: Performed By: #### I ABIGAIL #### [facility] [address] [address] [address] Michelle Cali LIPID PROFILEon 09-18-2022 CHOL-HDL RATIO NORM SEE BELOW Normal [facility] Comment on above: Result Comment: 3.3 - 4.4 LOW RISK 4.4 - 7.1 AVERAGE RISK 7.1 - 11.0 MODERATE RISK >11.0 HIGH RISK Performed By: #### T SH, CMP, T7, LIPID #### [facility] [address] [address] [address] Michelle Cali Cholesterol [Mass/Vol] 175 mg/dL Normal <=200 [facility] Comment on above: Performed By: #### T SH, CMP, T7, LIPID #### [facility] [address] [address] [address] Michelle Cali Cholesterol in HDL [Mass/Vol] 72 mg/dL Critically high 40-60 [facility] Comment on above: Performed By: #### T SH, CMP, T7, LIPID #### [facility] [address] [address] [address] Michelle Cali Cholesterol in LDL [Mass/Vol] 85.8 mg/dL Normal [facility] Comment on above: Performed By: #### T SH, CMP, T7, LIPID #### [facility] [address] [address] [address] Michelle Cali Cholesterol.total/Ch olesterol in HDL [Mass ratio] 2.4 {ratio} Normal [facility] Comment on above: Performed By: #### T SH, CMP, T7, LIPID #### [facility] [address] [address] [address] Michelle Cali HDL NORMAL > or = 60 mg/dl - LOW CARDIOVASCULAR RISK <40 mg/dl - HIGH CARDIOVASCULAR RISK Normal [facility] Comment on above: Performed By: #### T SH, CMP, T7, LIPID #### [facility] [address] [address] [address] Michelle Cali LDL CALC NORMAL SEE BELOW Normal [facility] Comment on above: Result Comment: <100 mg/dl OPTIMAL 100 - 129 mg/dl NEAR OR ABOVE OPTIMAL 130 - 159 mg/dl BORDERLINE HIGH 160 - 189 mg/dl HIGH >190 mg/dl VERY HIGH Performed By: #### T SH, CMP, T7, LIPID #### [facility] [address] [address] [address] Michelle Cali Triglyceride [Mass/Vol] 86 mg/dL Normal <=150 [facility] Comment on above: Performed By: #### T SH, CMP, T7, LIPID #### [facility] [address] [address] [address] Michelle Cali VLDL CALC 17.2 mg/dL Normal [facility] Comment on above: Performed By: #### T SH, CMP, T7, LIPID #### [facility] [address] [address] [address] Michelle Cali PROF 14(COMP METB)on 023 Albumin [Mass/Vol] 4.3 g/dL Normal 3.4-5.0 [facility] Comment on above: Performed By: #### T SH, CMP, T7, LIPID #### [facility] [address] [place] [address] Dr. Michelle Cali Albumin/Globulin [Mass ratio] 1.0 {ratio} Normal [facility] Comment on above: Performed By: #### T SH, CMP, T7, LIPID #### [facility] [address] [place] [address] Dr. Michelle Cali ALP [Catalytic activity/Vol] 65 U/L Normal 46-116 [facility] Comment on above: Performed By: #### T SH, CMP, T7, LIPID #### [facility] [address] [address] [address] Michelle Cali ALT [Catalytic activity/Vol] 17 U/L Normal 14-59 [facility] Comment on above: Performed By: #### T SH, CMP, T7, LIPID #### [facility] [address] [address] [address] Michelle Cali Anion gap [Moles/Vol] 12.2 mmol/L Normal [facility] Comment on above: Performed By: #### T SH, CMP, T7, LIPID #### [facility] [address] [address] [address] Michelle Cali AST [Catalytic activity/Vol] 15 U/L Normal 15-37 [facility] Comment on above: Performed By: #### T SH, CMP, T7, LIPID #### [facility] [address] [address] [address] Michelle Cali Bilirubin [Mass/Vol] 0.4 mg/dL Normal 0.2-1.0 [facility] Comment on above: Performed By: #### T SH, CMP, T7, LIPID #### [facility] [address] [place] [address] Dr. Michelle Cali Calcium [Mass/Vol] 9.4 mg/dL Normal 8.5-10.1 [facility] Comment on above: Performed By: #### T SH, CMP, T7, LIPID #### [facility] [address] [place] [address] Dr. Michelle Cali Chloride [Moles/Vol] 104 mmol/L Normal 98-107 [facility] Comment on above: Performed By: #### T SH, CMP, T7, LIPID #### [facility] [address] [place] [address] Dr. Michelle Cali CO2 [Moles/Vol] 27.7 mmol/L Normal 21.0-32.0 [facility] Comment on above: Performed By: #### T SH, CMP, T7, LIPID #### [facility] [address] [place] [address] Dr. Michelle Cali Creatinine [Mass/Vol] 0.63 mg/dL Normal 0.55-1.02 [facility] Comment on above: Performed By: #### T SH, CMP, T7, LIPID #### [facility] [address] [place] [address] Dr. Michelle Cali EGFR-AF BHUTANESE >60 Normal >=60 [facility] Comment on above: Performed By: #### T SH, CMP, T7, LIPID #### [facility] [address] [place] [address] Dr. Michelle Cali EGFR-NON AF BHUTANESE >60 Normal >=60 [facility] Comment on above: Performed By: #### T SH, CMP, T7, LIPID #### [facility] [address] [address] [address] Michelle Cali Globulin (S) [Mass/Vol] 4.2 g/dL Normal [facility] Comment on above: Performed By: #### T SH, CMP, T7, LIPID #### [facility] [address] [place] [address] Dr. Michelle Cali Glucose [Mass/Vol] 83 mg/dL Normal 74-106 [facility] Comment on above: Performed By: #### T SH, CMP, T7, LIPID #### [facility] [address] [place] [address] Dr. Michelle Cali Potassium [Moles/Vol] 3.9 mmol/L Normal 3.5-5.1 [facility] Comment on above: Performed By: #### T SH, CMP, T7, LIPID #### [facility] [address] [place] [address] Dr. Michelle Cali Protein [Mass/Vol] 8.5 g/dL Critically high 6.4-8.2 [facility] Comment on above: Performed By: #### T SH, CMP, T7, LIPID #### [facility] [address] [place] [address] Dr. Michelle Cali Sodium [Moles/Vol] 140 mmol/L Normal 136-145 [facility] Comment on above: Performed By: #### T SH, CMP, T7, LIPID #### [facility] [address] [place] [address] Dr. Michelle Cali Urea nitrogen [Mass/Vol] 9.0 mg/dL Normal 7.0-18.0 [facility] Comment on above: Performed By: #### T SH, CMP, T7, LIPID #### [facility] [address] [place] [address] Dr. Michelle Cali Urea nitrogen/Creatinine [Mass ratio] 14.3 mg/mg Normal [facility] Comment on above: Performed By: #### T SH, CMP, T7, LIPID #### [facility] [address] [place], [place] [address] Dr. Michelle Cali TSHon 09-18-2022 TSH 1.245 uIU/mL Normal 0.358-3.740 [facility] Comment on above: Performed By: #### T SH, CMP, T7, LIPID #### [facility] [address] [place], [place] [address] ABD/PELV W CONon [...] JEFFREY BEGUM Date: 2022-07-06 01:26 Normal [facility] CBC AUTO DIFFon 07-05-2022 BASO # 0.1 103/ul Normal 0.0-0.1 [facility] Comment on above: Performed By: #### C BC #### [facility] [address] [place] [address] Dr. Michelle Cali Basophils/100 WBC (Bld) 0.9 % Normal 0.2-2.0 [facility] Comment on above: Performed By: #### C BC #### [facility] [address] [place] [address] Dr. Michelle Cali EO # 0.1 103/ul Normal 0.0-0.7 [facility] Comment on above: Performed By: #### C BC #### [facility] [address] [place] [address] Dr. Michelle Cali Eosinophils/100 WBC (Bld) 1.0 % Normal 0.9-7.0 [facility] Comment on above: Performed By: #### C BC #### [facility] [address] [place] [address] Dr. Michelle Cali Erythrocyte distribution width (RBC) [Ratio] 12.5 % Normal 11.0-15.0 [facility] Comment on above: Performed By: #### C BC #### [facility] [address] [place] [address] Dr. Michelle Cali Hematocrit (Bld) [Volume fraction] 39.6 % Normal 36.0-48.0 [facility] Comment on above: Performed By: #### C BC #### [facility] [address] [place] [address] Dr. Michelle Cali Hemoglobin (Bld) [Mass/Vol] 13.6 g/dL Normal 12.0-16.0 [facility] Comment on above: Performed By: #### C BC #### [facility] [address] [place] [address] Dr. Michelle Cali IG # 0.02 10e3/ul Normal 0.00-0.03 [facility] Comment on above: Performed By: #### C BC #### [facility] [address] [place] [address] Dr. Michelle Cali IG % 0.2 % Normal 0.0-0.5 [facility] Comment on above: Performed By: #### C BC #### [facility] [address] [place] [address] Dr. Michelle Cali LYMPH # 4.0 103/ul Critically high 1.2-3.8 [facility] Comment on above: Performed By: #### C BC #### [facility] [address] [place] [address] Dr. Michelle Cali Lymphocytes/100 WBC (Bld) 44.0 % Normal 20.5-60.0 [facility] Comment on above: Performed By: #### C BC #### [facility] [address] [place] [address] Dr. Michelle Cali MANUAL DIFF REQ NO Normal [facility] Comment on above: Performed By: #### C BC #### [facility] [address] [place] [address] Dr. Michelle Cali MCH (RBC) [Entitic mass] 29.7 pg Normal 26.7-34.0 [facility] Comment on above: Performed By: #### C BC #### [facility] [address] [place] [address] Dr. Michelle Cali MCHC (RBC) [Mass/Vol] 34.3 g/dL Normal 29.9-35.2 [facility] Comment on above: Performed By: #### C BC #### [facility] [address] [place] [address] Dr. Michelle Cali MCV (RBC) [Entitic vol] 86.5 fL Normal 81.0-99.0 [facility] Comment on above: Performed By: #### C BC #### [facility] [address] [place] [address] Dr. Michelle Cali MONO # 0.6 103/ul Normal 0.3-0.8 [facility] Comment on above: Performed By: #### C BC #### [facility] [address] [place] [address] Dr. Michelle Cali Monocytes/100 WBC (Bld) 6.7 % Normal 1.7-12.0 [facility] Comment on above: Performed By: #### C BC #### [facility] [address] [place] [address] Dr. Michelle Cali NEUT # 4.2 103/ul Normal 1.4-6.5 [facility] Comment on above: Performed By: #### C BC #### [facility] [address] [place] [address] Dr. Michelle Cali Neutrophils/100 WBC (Bld) 47.2 % Normal 43.0-75.0 [facility] Comment on above: Performed By: #### C BC #### [facility] [address] [place] [address] Dr. Michelle Cali Platelet mean volume (Bld) [Entitic vol] 11.4 fL Normal 9.5-13.5 [facility] Comment on above: Performed By: #### C BC #### [facility] [address] [place] [address] Dr. Michelle Cali PLT 342 103/ul Normal 150-450 [facility] Comment on above: Performed By: #### C BC #### [facility] [address] [place] [address] Dr. Michelle Cali RBC 4.58 106/ul Normal 4.20-5.40 [facility] Comment on above: Performed By: #### C BC #### [facility] [address] [place] [address] Dr. Michelle Cali WBC 9.0 103/ul Normal 4.0-11.0 [facility] Comment on above: Performed By: #### C BC #### [facility] [address] [place] [address] Dr. Michelle Cali PREG HCG QUALon 07-05-2022 , QUAL Negative Normal NEGATIVE [facility] Comment on above: Performed By: #### P REG #### [facility] [address] [place] [address] Dr. Michelle Cali PROF 14(COMP METB)on 022 Albumin [Mass/Vol] 4.4 g/dL Normal 3.4-5.0 [facility] Comment on above: Performed By: #### C BC #### [facility] [address] [place] [address] Dr. Michelle Cali Albumin/Globulin [Mass ratio] 1.1 {ratio} Normal [facility] Comment on above: Performed By: #### C BC #### [facility] [address] [place] [address] Dr. Michelle Cali ALP [Catalytic activity/Vol] 82 U/L Normal 46-116 [facility] Comment on above: Performed By: #### C BC #### [facility] [address] [address] [address] Michelle Cali ALT [Catalytic activity/Vol] 22 U/L Normal 14-59 [facility] Comment on above: Performed By: #### C BC #### [facility] [address] [place] [address] Dr. Michelle Cali Anion gap [Moles/Vol] 9.3 mmol/L Normal [facility] Comment on above: Performed By: #### C BC #### [facility] [address] [place] [address] Dr. Michelle Cali AST [Catalytic activity/Vol] 17 U/L Normal 15-37 [facility] Comment on above: Performed By: #### C BC #### [facility] [address] [place] [address] Dr. Michelle Cali Bilirubin [Mass/Vol] 0.5 mg/dL Normal 0.2-1.0 [facility] Comment on above: Performed By: #### C BC #### [facility] [address] [place] [address] Dr. Michelle Cali Calcium [Mass/Vol] 9.1 mg/dL Normal 8.5-10.1 [facility] Comment on above: Performed By: #### C BC #### [facility] [address] [address] [address] Michelle Cali Chloride [Moles/Vol] 104 mmol/L Normal 98-107 [facility] Comment on above: Performed By: #### C BC #### [facility] [address] [place] [address] Dr. Michelle Cali CO2 [Moles/Vol] 26.8 mmol/L Normal 21.0-32.0 [facility] Comment on above: Performed By: #### C BC #### [facility] [address] [address] [address] Michelle Cali Creatinine [Mass/Vol] 0.73 mg/dL Normal 0.55-1.02 [facility] Comment on above: Performed By: #### C BC #### [facility] [address] [address] [address] Michelle Cali EGFR-AF BHUTANESE >60 Normal >=60 [facility] Comment on above: Performed By: #### C BC #### [facility] [address] [address] [address] Michelle Cali EGFR-NON AF BHUTANESE >60 Normal >=60 [facility] Comment on above: Performed By: #### C BC #### [facility] [address] [place] [address] Dr. Michelle Cali Globulin (S) [Mass/Vol] 4.1 g/dL Normal [facility] Comment on above: Performed By: #### C BC #### [facility] [address] [place] [address] Dr. Michelle Cali Glucose [Mass/Vol] 84 mg/dL Normal 74-106 [facility] Comment on above: Performed By: #### C BC #### [facility] [address] [place] [address] Dr. Michelle Cali Potassium [Moles/Vol] 3.1 mmol/L Critically low 3.5-5.1 [facility] Comment on above: Performed By: #### C BC #### [facility] [address] [place] [address] Dr. Michelle Cali Protein [Mass/Vol] 8.5 g/dL Critically high 6.4-8.2 [facility] Comment on above: Performed By: #### C BC #### [facility] [address] [place] [address] Dr. Michelle Cali Sodium [Moles/Vol] 137 mmol/L Normal 136-145 [facility] Comment on above: Performed By: #### C BC #### [facility] [address] [address] [address] Michelle Cali Urea nitrogen [Mass/Vol] 13.0 mg/dL Normal 7.0-18.0 [facility] Comment on above: Performed By: #### C BC #### [facility] [address] [address] [address] Michelle Cali Urea nitrogen/Creatinine [Mass ratio] 17.8 mg/mg Normal [facility] Comment on above: Performed By: #### C BC #### [facility] [address] [address] [address] Michelle Cali HCG,Urineon 02-07-2021 Beta HCG ( test) Ql (U) Negative Normal [facility] Comment on above: Result Comment: PERF ORMED BY: [place] [address] PATHOLOGIST LD TEACHER WENDY TRUONG M.D. Performed By: #### U HCG #### [address] 02-07-2021 L Specimen: [id number] Received: 02/07/21 Status: YANNA Beard Num: [id number] Spec Type: Surgical Subm Dr: Ranjit Coe MD Tissues: A Breast Reduction - Mammoplasty (RIGHT BREAST TISSUE) B Breast Reduction - Mammoplasty (LEFT BREAST TISSUE) Procedures: HE Stain/8, Gross/Micro L4/2 Patient Age/Sex Location Account Attending Physician Latha Cuevas PR [id number] Ranjit Coe MD SPEC NUM: [id number] RECD: 02/07/21 STATUS: YANNA BEARD NUM: [id number] YOUNG: 02/07/21- [facility] DR: Ranjit Coe MD ENTERED: 02/07/[address] [facility] [address]: FAHEEM TYPE: Surgical DEPT: S ENTERED BY: [id number] RECV BY: [id number] ORDERED: HE Stain/8, Gross/Micro L4/2 ORDERED: HE [...] obvious masses or lesions are grossly identified. Channel Marketing Program Manager sections are submitted in four cassettes labeled A1-A4. (ALMA/DUYEN) B. Received in formalin labeled with the patient's name, number and left breast tissue is a 379 g aggregate of lozada, smooth to wrinkled skin with underlying yellow lobulated adipose tissue (20 x 15 x 4.5 cm in aggregate). Sectioning reveals approximately 95% yellow lobulated adipose tissue and 5% lozada-white thin fibrous tissue. No obvious masses or lesions Specimen: [id number] Received: 02/07/21 Status: YANNA Dormankassandra Num: [id number] Spec Type: Surgical Subm Dr: Ranjit Coe MD Tissues: A Breast Reduction - Mammoplasty (RIGHT BREAST TISSUE) B Breast Reduction - Mammoplasty (LEFT BREAST TISSUE) Procedures: HE Stain/8, Gross/Micro L4/2 Patient: Latha Cuevas [id number] (Continued) Specimen: [id number] Received: 02/07/21 (Continued) Gross Description (Continued) Signed (signature on file) Wendy Truong MD 02/08/21 2033 Specimen: [id number] Received: 02/07/21 Status: YANNA Beard Num: [id number] Spec Type: Surgical Subm Dr: Ranjit Coe MD Tissues: A Breast Reduction - Mammoplasty (RIGHT BREAST TISSUE) B Breast Reduction - Mammoplasty (LEFT BREAST TISSUE) Procedures: HE Stain/8, Gross/Micro L4/2 Patient: Latha Cuevas [id number] (Continued) Specimen: [id number] Received: 02/07/21 (Continued) Gross Description (Continued) are grossly identified. Channel Marketing Program Manager sections are submitted in four cassettes labeled B1- B4. (ALMA/DUYEN) Microscopic Description A. Four glass slides with H E stained material have been examined. The microscopic findings support the above pathologic diagnosis. B. Four glass slides with H E stained material have been examined. The microscopic findings support the above pathologic diagnosis. [id number] Specimen: [id number] Received: 02/07/21 Status: YANNA Beard Num: [id number] Spec Type: Surgical Subm Dr: Ranjit Coe MD Tissues: A Breast Reduction - Mammoplasty (RIGHT BREAST TISSUE) B Breast Reduction - Mammoplasty (LEFT BREAST TISSUE) Procedures: HE Stain/8, Gross/Micro L4/2 Patient: Latha Cuevas [id number] (Continued) (more content not included)... Normal [facility] [facility] [facility] SARS-CoV-2 (COVID-19) RNA LALITO+probe Ql (Unsp spec) Negative Normal Negative [facility] Comment on above: Order Comment: Healt hcare Worker?: N Result Comment: Testing for SARS-CoV-2 by RT-PCR This test was developed and its performance characteristics determined by [employer]) and validated at the [facility]. This test has not been FDA cleared [...] is terminated or revoked sooner. PERFORMED BY: [place] [address] PATHOLOGIST LD TEACHER WENDY TRUONG M.D. Performed By: #### C OVID [address] [facility] #### [address] Vital Signs Date Time Vital Sign Value Performing Clinician Lianna lity 04-27-2024 15:49-0400 Body mass index (BMI) [Ratio] 31.41 kg/m2 Agata PRUITT Work Phone: [facility] 04-27-2024 15:49-0400 Body weight 83.01 kg Agata PRUITT Work Phone: [facility] 04-27-2024 15:49-0400 Diastolic blood pressure 68 mm[Hg] Agata PRUITT Work Phone: [facility] 04-27-2024 15:49-0400 Systolic blood pressure 110 mm[Hg] Agata PRUITT Work Phone: [facility] Healthcare Encounters Encounter Date Encounter Type Care Provider Facility Start: 04-27-2024 End: 04-27-2024 ambulatory AGATA MEZA Not Available Start: 04-27-2024 End: 04-27-2024 flow sheet Agata PRUITT Work Phone: [facility] Comment on above: Third trimester preg shay; 28 weeks gestation of ; size inconsistent with dates Start: 04-27-2024 End: 04-27-2024 Bamboo flowsheet Agata PRUITT Work Phone: [facility] Start: 04-27-2024 End: 04-27-2024 Bamboo flowsheet Agata PRUITT Work Phone: [facility] Start: 03-30-2024 End: 03-30-2024 ambulatory AGATA GUZMANEY Not Available Start: 03-02-2024 End: 03-02-2024 ambulatory ROOSEVELT MAURICIO Not Available Start: 02-10-2024 End: 02-10-2024 ambulatory AGATA SUSANA Not Available Start: 01-13-2024 End: 01-13-2024 ambulatory ROOSEVELT MAURICIO Not Available Start: 12-18-2023 End: 12-18-2023 ambulatory ROOSEVELT MAURICIO Not Available Start: 12-04-2022 End: 12-04-[address] SHANTELL SIMON . Facility: Start: 09-18-2022 End: 09-19-[address] JESUS TSANG . Facility:[facility] Start: 07-05-2022 End: 07-06-[address] JESUS TSANG . Facility:[facility] Start: 05-23-2022 End: 05-23-[address] JESUS TSANG . Facility: Procedures Date Procedure Procedure Detail Performing Clinician Start: 04-27-2024 Urnls dip stick/tabl et rgnt non-auto w/o micrscp Agata PRUITT Work Phone: Start: 04-21-2023 Cytp cerv/vag auto t hin layer prep mnl screen Roosevelt Mauricio DO Work Phone: Plan of Treatment Date Care Activity Detail Author Start: 05-10-2024 End: 05-10-2024 Professional / ancillary services management 05/10/2024 2:00 PM EDT Ancillary Procedure [facility] [address] [place] [address] [place] [id number] [facility] Start: 04-27-2024 End: 04-27-2025 US for US OB SCAN FOR GROWTH Imaging Routine size inconsistent with dates Expected: 04/27/2024 (Approximate), Expires: 04/27/2025 [facility] Work Phone: Comment on above: Expected: 04/27/2024 (Approximate), Expires: 04/27/2025 Payers Date Payer Category Payer Medicaid MEDICAID [place] [facility] [id number] 2024-Present [phone] [address] [place] [address] Medicaid [id number] 2024 Medicaid [id number] 2018 Unknown BCBS BCBS xxxxxx [id number] 2018-Present [phone] [address] [place] [address] [id number] 2001 Unknown [id number] 2001 Unknown [id number] 2001 Unknown [id number] [id number] 2001 Unknown [id number] [id number] 2001 Unknown [id number] [id number] 2001 Unknown [id number] [id number] 2001 Unknown [id number] [id number] 2001 Unknown [id number] [id number] 2001 Unknown [id number] [id number] 2001 Unknown [id number] 1959 Self-pay 1959 Unknown [id number] Social History Date Type Detail Facility [facility]: [facility] Start: 11-19-2023 Tobacco use and exposure Smoke less tobacco non-user [facility] Start: 03-30-2024 Alcoholic beverage intake Life time non-drinker (finding) [facility] Start: 11-19-2023 History of Social function [facility] Start: 11-19-2023 Tobacco use panel [facility] Start: 04-20-2023 Alcohol Comment Caffeine intake: non e [facility] Start: 10-27-2023 [facility] Start: 2001 Sex assigned at Not on file [facility] History of Present illness Narrative 04-27-2024 EDMOND Osborn - 04/27/2024 3:40 PM EDT Note Date & Type Note Facility 04-27-2024 History of Presen t illness Narrative Reason for Appointment: Patient ID: Latha Cuevas is a 24 y.o. female who presents for Routine Visit Patient presents today for Return OB appointment. MEDICATIONS Current Outpatient Medications Medication Instructions omeprazole (PRILOSEC) 20 mg, Oral, Daily before breakfast, Do not crush or chew. 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 History of shingles 11/23/2023 History of 2019 novel coronavirus disease (COVID-19) 11/23/2023 Resolved Ambulatory Problems Diagnosis Date Noted No Resolved Ambulatory Problems Past Medical History: Diagnosis Date Acne vulgaris Acne, unspecified Acute recurrent frontal sinusitis Bilateral thoracic back pain Bloody diarrhea Chest pain Chondromalacia patellae of right knee COVID-19 Cyst of meniscus of right knee De Quervain's tenosynovitis Dermatitis Eczema Fatigue Gastritis without bleeding 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) Hyperplasia of tonsils Hypothyroidism (acquired) (CMS/HCC) Internal derangement of knee, right Meralgia paresthetica of both lower extremities Radiculopathy Sebaceous cyst Shingles Sinusitis, acute Tonsillar hypertrophy HISTORY PAST MEDICAL HISTORY SOCIAL HISTORY Past Medical History: Diagnosis Date Acne vulgaris Acne, unspecified Acute recurrent frontal sinusitis Allergic rhinitis Allergic rhinitis Bilateral thoracic back pain Bloody diarrhea Chest pain Chondromalacia patellae of right knee Chronic adenotonsillitis COVID-19 Cyst of meniscus of right knee De Quervain's tenosynovitis Dermatitis Eczema Fatigue Gastritis without bleeding 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) Hyperplasia of tonsils Hypothyroidism (acquired) (CMS/HCC) Internal derangement of knee, right Meralgia paresthetica of both lower extremities Pharyngitis Radiculopathy Sebaceous cyst Shingles Sinusitis, acute Tonsillar hypertrophy UARS (upper airway resistance syndrome) Social History Tobacco Use Smoking status: Never Smokeless tobacco: Never Substance Use Topics Alcohol use: Never Comment: Caffeine intake: none Drug use: Never FAMILY HISTORY Family History Problem Relation Name Age of Onset No Known Problems Mother No Known Problems Father No Known Problems Sister No Known Problems Brother Breast cancer Maternal Grandmother Heart disease Maternal Grandfather Diabetes Paternal Grandmother Heart disease Paternal Grandfather SURGICAL HISTORY Past Surgical History: Procedure Laterality Date OTHER SURGICAL HISTORY Breast reduction OTHER SURGICAL HISTORY Exp Lap REVIEW OF SYSTEMS Review of Systems: Review of Systems Constitutional: Negative. HENT: Negative. Eyes: Negative. Respiratory: Negative. Cardiovascular: Negative. Gastrointestinal: Negative. Genitourinary: Negative. Musculoskeletal: Negative. Skin: Negative. Neurological: Negative. All other systems reviewed and are negative. Hematological: Negative. Endocrine: Negative. Allergic/Immunologic: Negative. OBJECTIVE Objective: Physical Exam Constitutional: Appearance: Normal appearance. She is normal weight. HENT: Head: Normocephalic. Cardiovascular: Rate and Rhythm: Normal rate. Pulses: Normal pulses. Pulmonary: Effort: Pulmonary effort is normal. Breath sounds: Normal breath sounds. Abdominal: Palpations: Abdomen is soft. Musculoskeletal: General: Normal range of motion. Neurological: General: No focal deficit present. Mental Status: She is alert and oriented to person, place, and time. Psychiatric: Mood and Affect: Mood normal. Behavior: Behavior normal. Thought Content: Thought content normal. Judgment: Judgment normal. Vitals and nursing note reviewed. Vitals: Estimated body mass index is 30.4 kg/m as calculated from the following: Height as of 04/21/23: 5' 4 . Weight as of 03/30/24: 177 lb 1.9 oz. BP: Patient's last menstrual period was 10/13/2023. ASSESSMENT & PLAN ICD-10-CM 1. Third trimester Z34.93 POCT urinalysis dipstick manually resulted 2. 28 weeks gestation of Z3A.28 POCT urinalysis dipstick manually resulted Return OB: Patient presents today for a routine obstetrics appointment. Patient is currently 28w1d . Patient states she is doing well but has complaints of being tired due to current . Patient has verbalizes frequent movement. labor precautions was discussed/given and patient was instructed to perform kick counts three times a day. Orders Placed This Encounter Procedures POCT urinalysis dipstick manually resulted Follow Up: Patient is to return to office in 2 week for routine OB appointment. Documented by Cynthia Maya MA on behalf of: EDMOND Osborn documented in this encounter [facility] Evaluation note Note Date & Type Note Facility Evaluation note Diagnosis Third trimester state, incidental 28 weeks gestation of size inconsistent with dates documented in this encounter [facility] Summary Purpose Family History No Family History Records FoundNo Family History Records FoundNo Family History Records Found Advance Directives No Advanced Directives Records FoundNo Advanced Directives Records FoundNo Advanced Directives Records Found Additional Source Comments INFORMATION SOURCE (unrecogn ized section and content) DATE CREATED AUTHOR 08/11/2021 [facility] DATE CREATED AUTHOR AUTHOR'S ORGANIZ ATION 12/09/2022 [facility] DATE CREATED AUTHOR AUTHOR'S ORGANIZ ATION 04/29/[address] [facility] EPIC Reason for Visit (unrecogniz ed section and content) Reason Comments Routine Visit Care Teams (unrecognized sec tion and content) Baker Relationship Specialty Start Date End Date Jesus Tsang MD [address] [place] [address] PCP - [facility] 04/21/23 Baker Relationship Specialty Start Date End Date Jesus Tsang MD [address] [place] [address] PCP - General Family Medicine 04/21/23 FOR RECORDS PERTAINING TO PATIENTS WHO ARE [...] BE BASED ON THE PRIMARY CLINICAL RECORDS. [facility] [employer] [facility]. provides no warranty or guarantee of the accuracy or completeness of information in this document.
== END 2024-05-10 13:56 | disposition home or self-care (01) ==
LOC: NOMS 13:56
PROVIDERS: PCP Family Medicine; Visit Provider Physician Assistant
DX: O26.843 Uterine size-date discrepancy, third trimester (principal); Z3A.30 30 weeks gestation of pregnancy
CPT/HCPCS: 76816

== ENCOUNTER 2024-06-22 19:49 | Outpatient (REF) | payer BC, MEDICAID, SELFPAY ==
--- OUTSIDE RECORDS SUMMARY | 2024-06-22 19:55 | XMS_ITS | CCD ---
Author Organization [facility] Care Team Providers Care Industrial Property Appraiser Name Role Phone MARKER ., DR STINSON [...] Unavailable PAY ., DR TOLBERT Consulting Unavailable HOMargarito ., DR LEE Primary Care Unavailable JAYANT, DR BRAIN Starks Admitting Unavailable JAYANT, DR BRAIN Starks Attending Unavailable JAYANT, DR BRAIN Starks Consulting Unavailable JEFFREY BEGUM Consulting Unavailable Jesus Tsang MD Primary Care Provider [phone] ROOSEVELT MARTÍNEZ Attending Unavailable SUSANA, AGATA Attending Unavailable MAURICIO, ROOSEVELT Attending Unavailable SUSANA, AGATA Attending Unavailable SUSANA, AGATA Attending Unavailable MAURICIO, ROOSEVELT Attending Unavailable SUSANA, AGATA Attending Unavailable SUSANA, AGATA Attending Unavailable ROOSEVELT MARTÍNEZ Attending Unavailable Medications Completed/Discontinued Medications Medication Drug Class(es) Dates Sig (Normalized) Sig (Original) omeprazole 20 mg delayed release oral capsule (17 sources) Proton Pump Inhibitor Start: 03-30-2024 End: 06-22-2024 take 1 capsule by mouth before mealtime omeprazole (PriLOSEC) [address] rothman Indications: Gastroesophageal Reflux Disease , Heartburn Take 1 capsule (20 mg) by mouth in the morning. Take before meals. Do not crush or chew.. 30 capsule 3 03/30/2024 06/22/2024 Discontinued Problems Active Problems Problem Classification Problem Date Documented Da te Episodic/Chronic Acute and chronic tonsillitis (20 sources) Chronic adenotonsillitis; Translations: [Chronic tonsillitis and [...] 04-27-2024 Episodic Other and delivery including normal (12 sources) Third trimester ; Translations: [Encounter for supervision of normal , unspecified, third trimester] 04-27-2024 Episodic Other upper respiratory disease (17 sources) Allergic rhinitis; Translations: [Allergic rhinitis, unspecified] Onset: 11-19-2023 11-19-2023 Chronic Other upper respiratory infections (1 source) Chronic sinusitis, unspecified; Translations: [CHRONIC SINUSITIS UNSPECIFIED] Onset: 05-26-2022 Chronic Residual codes; unclassified (17 sources) Upper airway resistance syndrome; Translations: [Other sleep disorders] Onset: 11-19-2023 11-19-2023 Chronic Residual codes; unclassified (2 sources) Gestation period, 28 weeks; Translations: [28 weeks gestation of ] 04-27-2024 Episodic Residual codes; unclassified (2 sources) Gestation period, 30 weeks; Translations: [30 weeks gestation of ] 05-10-2024 Episodic Residual codes; unclassified (4 sources) Gestation period, 34 weeks; Translations: [34 weeks gestation of ] 05-24-2024 Episodic Residual codes; unclassified (2 sources) Gestation period, 35 weeks; Translations: [35 weeks gestation of ] 06-14-2024 Episodic Residual codes; unclassified (2 sources) Gestation period, 36 weeks; Translations: [36 weeks gestation of ] 06-22-2024 Episodic Past or Other Problems Problem Classification Problem Date Documented Da te Episodic/Chronic Abdominal pain (1 source) Left upper quadrant pain; Translations: [LEFT UPPER QUADRANT PAIN] Onset: 07-08-2022 Episodic Nausea and vomiting (4 sources) Nausea; Translations: [Nausea with vomiting, unspecified] Onset: 07-05-2022 Episodic Other infections; including parasitic (17 sources) History of herpes zoster; Translations: [Personal history of other infectious and parasitic diseases] Onset: 11-23-2023 11-23-2023 Episodic Other infections; including parasitic (17 sources) Personal history of other infectious and parasitic diseases; Translations: [History of 2019 novel coronavirus disease (COVID-19)] Onset: 11-23-2023 11-23-2023 Episodic Other nervous system disorders (17 sources) History of Guillain [place] syndrome; Translations: [Personal history of other diseases of the nervous system and sense organs] Onset: 11-23-2023 11-23-2023 Episodic Other nutritional; endocrine; and metabolic disorders (1 source) Abnormal weight loss; Translations: [ABNORMAL WEIGHT LOSS] Onset: 07-08-2022 Episodic Other upper respiratory disease (3 sources) Unspecified disorder of nose and nasal sinuses; Translations: [UNS DISORDER NOSE AND NASAL SINUSES] Onset: 05-23-2022 Episodic Other upper respiratory infections (20 sources) Acute frontal sinusitis; Translations: [Acute frontal sinusitis, unspecified] Onset: 11-19-2023 11-19-2023 Episodic Results Test Name Value Interpretation Reference Range Facility Urinalysis macro (dipstick) panel (U)Ordered By: Amarilis Oden on 06-22-2024 Bilirubin, UA Negative Negative - 4(70) +++ mg/dL [facility] Blood, UA Positive Negative - 50 Gabriele/mcL [facility] Comment on above: trace-intact Clarity, UA Clear Located within [facility] re Color, UA Yellow [facility] Gl[facility], [facility]A Negative Negative - 2000(110) ++++ mg/dL [facility] Interpretation and review of laboratory results Abnormal [facility] Ketones, UA Negative Negative - 160(16) ++++ mg/dL [facility] Leukocytes, UA Positive Negative - 500+++ Alexsandra/mcL [facility] Comment on above: large Nitrite, UA Negative Negative - Positive [facility] pH, UA 6 5 - 9 [facility] Protein, UA Negative Negative - 1999(20) ++++ mg/dL [facility] Spec Grav, UA 1.025 1 - 1.03 [facility] care Urobilinogen, UA 0.2 0.2 - 12 mg/[facility] macro (dipstick) panel (U)on 06-14-2024 Bilirubin, UA Negative Negative - 4(70) +++ mg/dL [facility] Blood, UA Positive Negative - 50 Gabriele/mcL [facility] Comment on above: trace Clarity, UA Clear [facility] Color, UA Yellow [facility] Glucose, UA Negative Negative - 1999(110) ++++ mg/dL [facility] Interpretation and review of laboratory results Abnormal [facility] Ketones, UA Negative Negative - 160(16) ++++ mg/dL [facility] Leukocytes, UA Trace Negative - 500+++ Alexsandra/mcL [facility] Nitrite, UA Negative Negative - Positive [facility] pH, UA 6.5 5 - 9 [facility] e Protein, UA Trace Negative - 1999(20) ++++ mg/dL [facility] Healthcare Spec Grav, UA 1.025 1 - 1.03 [facility] care Urobilinogen, UA 1.0 0.2 - 12 mg/dL [facility] (dipstick) panel (U)on 06-07-2024 Bilirubin, UA Negative Negative - 4(70) +++ mg/dL [facility] Blood, UA Negative Negative - 50 Gabriele/mcL [facility] Healthcare Clarity, UA Clear [facility] re Color, UA Yellow [facility] e Glucose, UA Negative Negative - 1999(110) ++++ mg/dL [facility] Interpretation and review of laboratory results Abnormal [facility] Ketones, UA Positive Negative - 160(16) ++++ mg/dL [facility] Comment on above: trace Leukocytes, UA Negative Negative - 500+++ Alexsandra/mcL [facility] Healthcare Nitrite, UA Negative Negative - Positive [facility] pH, UA 7 5 - 9 [facility] Protein, UA Negative Negative - 1999(20) ++++ mg/dL [facility] Spec Grav, UA 1.025 1 - 1.03 [facility] care Urobilinogen, UA 0.2 0.2 - 12 mg/dL [facility] macro (dipstick) panel (U)on 05-24-2024 Bilirubin, UA Negative Negative - 4(70) +++ mg/dL [facility] Blood, UA Positive Negative - 50 Gabriele/mcL [facility] Comment on above: trace Clarity, UA Clear [facility] Color, UA Yellow [facility] Glucose, UA Negative Negative - 1999(110) ++++ mg/dL [facility] Interpretation and review of laboratory results Abnormal [facility] Ketones, UA Negative Negative - 160(16) ++++ mg/dL [facility] Healthcare Leukocytes, UA Positive Negative - 500+++ Alexsandra/mcL [facility] Healthcare Comment on above: small Nitrite, UA Negative Negative - Positive [facility] pH, UA 7 5 - 9 [facility] e Protein, UA Negative Negative - 1999(20) ++++ mg/dL [facility] Spec Grav, UA 1.02 1 - 1.03 [facility] care Urobilinogen, UA 0.2 0.2 - 12 mg/dL [facility] macro (dipstick) panel (U)on 05-10-2024 Bilirubin, UA Negative Negative - 4(70) +++ mg/dL [facility] Blood, UA Positive Negative - 50 Gabriele/mcL [facility] Healthcare Comment on above: trace-intact Clarity, UA Clear [facility] re Color, UA Yellow [facility] e Glucose, UA Negative Negative - 1999(110) ++++ mg/dL [facility] Interpretation and review of laboratory results Abnormal [facility] Ketones, UA Positive Negative - 160(16) ++++ mg/dL [facility] Healthcare Comment on above: 15 Leukocytes, UA Negative Negative - 500+++ Alexsandra/mcL [facility] Healthcare Nitrite, UA Negative Negative - Positive [facility] pH, UA 7 5 - 9 [facility] e Protein, UA Negative Negative - 1999(20) ++++ mg/dL [facility] Healthcare Spec Grav, UA 1.025 1 - 1.03 [facility] care Urobilinogen, UA 0.2 0.2 - 12 mg/dL [facility] macro (dipstick) panel (U)on 04-27-2024 Bilirubin, UA Positive Negative - 4(70) +++ mg/dL [facility] Comment on above: small Blood, UA Positive Negative - 50 Gabriele/mcL [facility] Comment on above: large Clarity, UA Clear Located within [facility] re Color, UA Gay [facility] Glucose, UA Negative Negative - 1999(110) ++++ mg/dL [facility] Interpretation and review of laboratory results Abnormal [facility] Ketones, UA Positive Negative - 160(16) ++++ mg/dL [facility] Comment on above: 40 mg Leukocytes, UA Positive Negative - 500+++ Alexsandra/mcL [facility] Comment on above: small Nitrite, UA Negative Negative - Positive [facility] pH, UA 5.5 5 - 9 [facility] e Protein, UA Positive Negative - 1999(20) ++++ mg/dL [facility] Comment on above: 30 mg Spec Grav, UA 1.030 1 - 1.03 [facility] Urobilinogen, UA 1.0 0.2 - 12 mg/dL [facility] Cytology Cervical or vaginal smear or scraping studyon 04-21-2023 [facility] e CARDIAC BRAIN ADMITon 023 CK [Catalytic activity/Vol] 102 U/L Normal 26-192 [facility] Comment on above: Performed By: #### C BC #### [facility] [address] [place], [place] [address] Dr. Michelle Cali CK.MB [Mass/Vol] 0.74 ng/mL Normal <=3.60 [facility] Comment on above: Performed By: #### C BC #### [facility] [address] [place], [place] [address] Dr. Michelle Cali HSTROP 7.7 pg/mL Normal 4.0-51.3 [facility] Comment on above: Result Comment: CUT- OFF POINTS HAVE BEEN ESTABLISHED BASED ON THE FOURTH UNIVERSAL DEFINITIONS OF MYOCARDIAL INFARCTION. THE UPPER REFERENCE LIMIT (URL) OF TROPONIN, DEFINED THE 99TH PERCENTILE OF cTnI DISTRIBUTION IN A REFERENCE POPULATION, HAS BEEN CONFIRMED THE DECISION THRESHOLD FOR NM DIAGNOSIS. Performed By: #### C BC #### [facility] [address] [place] [address] Dr. Michelle Cali SHAHNAZ 24 ng/mL Normal 9-82 [facility] Comment on above: Performed By: #### C BC #### [facility] [address] [place] [address] Dr. Michelle Cali CBC AUTO DIFFon 12-04-2022 BASO # 0.1 103/ul Normal 0.0-0.1 [facility] Comment on above: Performed By: #### C BC #### [facility] [address] [place] [address] Dr. Michelle Cali Basophils/100 WBC (Bld) 0.9 % Normal 0.2-2.0 [facility] Comment on above: Performed By: #### C BC #### [facility] [address] [place] [address] Dr. Michelle Cali EO # 0.1 103/ul Normal 0.0-0.7 [facility] Comment on above: Performed By: #### C BC #### [facility] [address] [place] [address] Dr. Michelle Cali Eosinophils/100 WBC (Bld) 0.6 % Critically low 0.9-7.0 [facility] Comment on above: Performed By: #### C BC #### [facility] [address] [place] [address] Dr. Michelle Cali Erythrocyte distribution width (RBC) [Ratio] 12.3 % Normal 11.0-15.0 [facility] Comment on above: Performed By: #### C BC #### [facility] [address] [place] [address] Dr. Michelle Cali Hematocrit (Bld) [Volume fraction] 40.3 % Normal 36.0-48.0 [facility] Comment on above: Performed By: #### C BC #### [facility] [address] [place] [address] Dr. Michelle Cali Hemoglobin (Bld) [Mass/Vol] 13.2 g/dL Normal 12.0-16.0 [facility] Comment on above: Performed By: #### C BC #### [facility] [address] [place] [address] [address] Michelle Cali IG # 0.03 10e3/ul Normal 0.00-0.03 [facility] Comment on above: Performed By: #### C BC #### [facility] [address] [place] [address] Dr. Michelle Cali IG % 0.3 % Normal 0.0-0.5 [facility] Comment on above: Performed By: #### C BC #### [facility] [address] [place] [address] Dr. Michelle Cali LYMPH # 4.1 103/ul Critically high 1.2-3.8 [facility] Comment on above: Performed By: #### C BC #### [facility] [address] [place] [address] Dr. Michelle Cali Lymphocytes/100 WBC (Bld) 39.9 % Normal 20.5-60.0 [facility] Comment on above: Performed By: #### C BC #### [facility] [address] [place] [address] Dr. Michelle Cali MANUAL DIFF REQ NO Normal [facility] Comment on above: Performed By: #### C BC #### [facility] [address] [place] [address] Dr. Michelle Cali MCH (RBC) [Entitic mass] 29.8 pg Normal 26.7-34.0 [facility] Comment on above: Performed By: #### C BC #### [facility] [address] [place] [address] Dr. Michelle Cali MCHC (RBC) [Mass/Vol] 32.8 g/dL Normal 29.9-35.2 [facility] Comment on above: Performed By: #### C BC #### [facility] [address] [place] [address] Dr. Michelle Cali MCV (RBC) [Entitic vol] 91.0 fL Normal 81.0-99.0 [facility] Comment on above: Performed By: #### C BC #### [facility] [address] [place] [address] Dr. Michelle Cali MONO # 0.5 103/ul Normal 0.3-0.8 [facility] Comment on above: Performed By: #### C BC #### [facility] [address] [place] [address] Dr. Michelle Cali Monocytes/100 WBC (Bld) 5.2 % Normal 1.7-12.0 [facility] Comment on above: Performed By: #### C BC #### [facility] [address] [place] [address] Dr. Michelle Cali NEUT # 5.4 103/ul Normal 1.4-6.5 [facility] Comment on above: Performed By: #### C BC #### [facility] [address] [place] [address] Dr. Michelle Cali Neutrophils/100 WBC (Bld) 53.1 % Normal 43.0-75.0 [facility] Comment on above: Performed By: #### C BC #### [facility] [address] [place] [address] Dr. Michelle Cali Platelet mean volume (Bld) [Entitic vol] 10.6 fL Normal 9.5-13.5 [facility] Comment on above: Performed By: #### C BC #### [facility] [address] [place] [address] Dr. Michelle Cali PLT 310 103/ul Normal 150-450 [facility] Comment on above: Performed By: #### C BC #### [facility] [address] [place] [address] Dr. Michelle Cali RBC 4.43 106/ul Normal 4.20-5.40 [facility] Comment on above: Performed By: #### C BC #### [facility] [address] [place] [address] Dr. Michelle Cali WBC 10.2 103/ul Normal 4.0-11.0 [facility] Comment on above: Performed By: #### C BC #### [facility] [address] [place] [address] Dr. Michelle Cali D-DIMERon 12-04-2022 D-DIMER 0.19 mg/L FEU Normal <=0.59 [facility] Comment on above: Performed By: #### C BC #### [facility] [address] [place] [address] Dr. Michelle Cali D-DIMER COMMENTS SEE BELOW Normal [facility] Comment on above: Result Comment: Incr [...] hospitalization. Performed By: #### C BC #### [facility] [address] [place] [address] Dr. Michelle Cali ER URINE PROFILEon 3 Bilirubin Ql (U) Negative Normal NEGATIVE [facility] Comment on above: Performed By: #### P REGU, ERUR #### [facility] [address] [place] [address] Dr. Michelle Cali Clarity (U) CLEAR Normal CLEAR [facility] Comment on above: Performed By: #### P REGU, ERUR #### [facility] [address] [place] [address] Dr. Michelle Cali Color (U) YELLOW Normal YELLOW [facility] Comment on above: Performed By: #### P REGU, ERUR #### [facility] [address] [place] [address] Dr. Michelle Cali ERUAHD A micrscopic examination will be performed if indicated. Normal [facility] Comment on above: Performed By: #### P REGU, ERUR #### [facility] [address] [place] [address] Dr. Michelle Cali Glucose Ql (U) Negative Normal NEGATIVE [facility] Comment on above: Performed By: #### P REGU, ERUR #### [facility] [address] [place] [address] Dr. Michelle Cali Hemoglobin Ql (U) Negative Normal NEGATIVE [facility] Comment on above: Performed By: #### P REGU, ERUR #### [facility] [address] [place] [address] Dr. Michelle Cali Ketones Ql (U) Negative Normal NEGATIVE [facility] Comment on above: Performed By: #### P REGU, ERUR #### [facility] [address] [place] [address] Dr. Michelle Cali LEUKOCYTES Negative Normal NEGATIVE [facility] Comment on above: Performed By: #### P REGU, ERUR #### [facility] [address] [place] [address] [address] Michelle Cali Nitrite Ql (U) Negative Normal NEGATIVE [facility] Comment on above: Performed By: #### P REGU, ERUR #### [facility] [address] [place] [address] Dr. Michelle Cali pH (U) 6.0 [pH] Normal 5-9 [facility] Comment on above: Performed By: #### P REGU, ERUR #### [facility] [address] [place] [address] Dr. Michelle Cali SPEC GRAVITY >=1.030 Abnormal 1.005-<=1.025 [facility] Comment on above: Performed By: #### P REGU, ERUR #### [facility] [address] [place] [address] Dr. Michelle Cali UA PROTEIN TRACE Normal NEGATIVE/ TRACE [facility] Comment on above: Performed By: #### P REGU, ERUR #### [facility] [address] [place] [address] Dr. Michelle Cali UR MICRO IND NOT INDICATED Normal [facility] Comment on above: Performed By: #### P REGU, ERUR #### [facility] [address] [place] [address] Dr. Michelle Cali Urobilinogen Qn (U) 0.2 {Kalyan'U}/dL Normal 0.2 - 1. 0 [facility] Comment on above: Performed By: #### P JAVIER, ERUR #### [facility] [address] [place] [address] [address] Michelle Cali URon 12-04-2022 , QUAL Negative Normal NEGATIVE [facility] Comment on above: Performed By: #### P MARIOU, ERUR #### [facility] [address] [place] [address] Dr. Michelle Cali PROF 14(COMP METB)on 023 Albumin [Mass/Vol] 3.9 g/dL Normal 3.4-5.0 [facility] Comment on above: Performed By: #### C BC #### [facility] [address] [place] [address] Dr. Michelle Cali Albumin/Globulin [Mass ratio] 1.0 {ratio} Normal [facility] Comment on above: Performed By: #### C BC #### [facility] [address] [place] [address] Dr. Michelle Cali ALP [Catalytic activity/Vol] 69 U/L Normal 46-116 [facility] Comment on above: Performed By: #### C BC #### [facility] [address] [place] [address] Dr. Michelle Cali ALT [Catalytic activity/Vol] 13 U/L Critically low 14-59 [facility] Comment on above: Performed By: #### C BC #### [facility] [address] [place] [address] Dr. Michelle Cali Anion gap [Moles/Vol] 13.6 mmol/L Normal [facility] Comment on above: Performed By: #### C BC #### [facility] [address] [place] [address] Dr. Michelle Cali AST [Catalytic activity/Vol] 11 U/L Critically low 15-37 [facility] Comment on above: Performed By: #### C BC #### [facility] [address] [place] [address] Dr. Michelle Cali Bilirubin [Mass/Vol] 0.3 mg/dL Normal 0.2-1.0 [facility] Comment on above: Performed By: #### C BC #### [facility] [address] [place] [address] Dr. Michelle Cali Calcium [Mass/Vol] 9.0 mg/dL Normal 8.5-10.1 [facility] Comment on above: Performed By: #### C BC #### [facility] [address] [place] [address] Dr. Michelle Cali Chloride [Moles/Vol] 105 mmol/L Normal 98-107 [facility] Comment on above: Performed By: #### C BC #### [facility] [address] [place] [address] Dr. Michelle Cali CO2 [Moles/Vol] 26.8 mmol/L Normal 21.0-32.0 [facility] Comment on above: Performed By: #### C BC #### [facility] [address] [place] [address] Dr. Michelle Cali Creatinine [Mass/Vol] 0.82 mg/dL Normal 0.55-1.02 [facility] Comment on above: Performed By: #### C BC #### [facility] [address] [place] [address] Dr. Michelle Cali EGFR-AF THAI >60 Normal >=60 [facility] Comment on above: Performed By: #### C BC #### [facility] [address] [place] [address] Dr. Michelle Cali EGFR-NON AF THAI >60 Normal >=60 [facility] Comment on above: Performed By: #### C BC #### [facility] [address] [place] [address] Dr. Michelle Cali Globulin (S) [Mass/Vol] 3.8 g/dL Normal [facility] Comment on above: Performed By: #### C BC #### [facility] [address] [place] [address] Dr. Michelle Cali Glucose [Mass/Vol] 104 mg/dL Normal 74-106 [facility] Comment on above: Performed By: #### C BC #### [facility] [address] [place] [address] Dr. Michelle Cali Potassium [Moles/Vol] 3.4 mmol/L Critically low 3.5-5.1 [facility] Comment on above: Performed By: #### C BC #### [facility] [address] [place] [address] [address] Michelle Cali Protein [Mass/Vol] 7.7 g/dL Normal 6.4-8.2 [facility] Comment on above: Performed By: #### C BC #### [facility] [address] [place] [address] [address] Michelle Cali Sodium [Moles/Vol] 142 mmol/L Normal 136-145 [facility] Comment on above: Performed By: #### C BC #### [facility] [address] [place] [address] Dr. Michelle Cali Urea nitrogen [Mass/Vol] 9.0 mg/dL Normal 7.0-18.0 [facility] Comment on above: Performed By: #### C BC #### [facility] [address] [place] [address] Dr. Michelle Cali Urea nitrogen/Creatinine [Mass ratio] 11.0 mg/mg Normal [facility] Comment on above: Performed By: #### C BC #### [facility] [address] [place] [address] [address] Michelle Cali TSHon 12-04-2022 TSH 6.358 uIU/mL Critically high 0.358-3.740 [facility] Comment on above: Performed By: #### C BC #### [facility] [address] [place] [address] Dr. Michelle Cali INSULINon 09-19-2022 Insulin 6.8 uIU/mL Normal 2.6-24.9 [facility] Comment on above: Performed By: #### C BC #### [facility] [facility] [address] [place] [address] Dr. Michelle Cali CBC AUTO DIFFon 09-18-2022 BASO # 0.1 103/ul Normal 0.0-0.1 [facility] Comment on above: Performed By: #### C BC #### [facility] [address] [address] [address] Michelle Cali Basophils/100 WBC (Bld) 0.8 % Normal 0.2-2.0 [facility] Comment on above: Performed By: #### C BC #### [facility] [address] [address] [address] Michelle Cali EO # 0.1 103/ul Normal 0.0-0.7 [facility] Comment on above: Performed By: #### C BC #### [facility] [address] [place] [address] Dr. Michelle Cali Eosinophils/100 WBC (Bld) 0.8 % Critically low 0.9-7.0 [facility] Comment on above: Performed By: #### C BC #### [facility] [address] [place] [address] Dr. Michelle Cali Erythrocyte distribution width (RBC) [Ratio] 12.4 % Normal 11.0-15.0 [facility] Comment on above: Performed By: #### C BC #### [facility] [address] [place] [address] Dr. Michelle Cali Hematocrit (Bld) [Volume fraction] 41.6 % Normal 36.0-48.0 [facility] Comment on above: Performed By: #### C BC #### [facility] [address] [place] [address] Dr. Michelle Cali Hemoglobin (Bld) [Mass/Vol] 14.3 g/dL Normal 12.0-16.0 [facility] Comment on above: Performed By: #### C BC #### [facility] [address] [place] [address] Dr. Michelle Cali IG # 0.03 10e3/ul Normal 0.00-0.03 [facility] Comment on above: Performed By: #### C BC #### [facility] [address] [place] [address] Dr. Michelle Cali IG % 0.3 % Normal 0.0-0.5 [facility] Comment on above: Performed By: #### C BC #### [facility] [address] [place] [address] Dr. Michelle Cali LYMPH # 3.1 103/ul Normal 1.2-3.8 [facility] Comment on above: Performed By: #### C BC #### [facility] [address] [place] [address] Dr. Michelle Cali Lymphocytes/100 WBC (Bld) 32.8 % Normal 20.5-60.0 [facility] Comment on above: Performed By: #### C BC #### [facility] [address] [place] [address] Dr. Michelle Cali MANUAL DIFF REQ NO Normal [facility] Comment on above: Performed By: #### C BC #### [facility] [address] [place] [address] Dr. Michelle Cali MCH (RBC) [Entitic mass] 29.5 pg Normal 26.7-34.0 [facility] Comment on above: Performed By: #### C BC #### [facility] [address] [place] [address] Dr. Michelle Cali MCHC (RBC) [Mass/Vol] 34.4 g/dL Normal 29.9-35.2 [facility] Comment on above: Performed By: #### C BC #### [facility] [address] [place] [address] Dr. Michelle Cali MCV (RBC) [Entitic vol] 86.0 fL Normal 81.0-99.0 [facility] Comment on above: Performed By: #### C BC #### [facility] [address] [place] [address] Dr. Michelle Cali MONO # 0.5 103/ul Normal 0.3-0.8 [facility] Comment on above: Performed By: #### C BC #### [facility] [address] [place] [address] Dr. Michelle Cali Monocytes/100 WBC (Bld) 5.6 % Normal 1.7-12.0 [facility] Comment on above: Performed By: #### C BC #### [facility] [address] [place] [address] Dr. Michelle Cali NEUT # 5.7 103/ul Normal 1.4-6.5 [facility] Comment on above: Performed By: #### C BC #### [facility] [address] [place] [address] Dr. Michelle Cali Neutrophils/100 WBC (Bld) 59.7 % Normal 43.0-75.0 [facility] Comment on above: Performed By: #### C BC #### [facility] [address] [place] [address] Dr. Michelle Cali Platelet mean volume (Bld) [Entitic vol] 10.3 fL Normal 9.5-13.5 [facility] Comment on above: Performed By: #### C BC #### [facility] [address] [place] [address] Dr. Michelle Cali PLT 319 103/ul Normal 150-450 [facility] Comment on above: Performed By: #### C BC #### [facility] [address] [place] [address] Dr. Michelle Cali RBC 4.84 106/ul Normal 4.20-5.40 [facility] Comment on above: Performed By: #### C BC #### [facility] [address] [place] [address] Dr. Michelle Cali WBC 9.5 103/ul Normal 4.0-11.0 [facility] Comment on above: Performed By: #### C BC #### [facility] [address] [place] [address] Dr. Michelle Cali FREE THYROXINE INDEX T7on FTI 2.36 Normal 1.30-4.50 [facility] Comment on above: Performed By: #### T SH, CMP, T7, LIPID #### [facility] [address] [place] [address] Dr. Michelle Cali T3U 31.0 % Normal 30.0-39.0 [facility] Comment on above: Performed By: #### T SH, CMP, T7, LIPID #### [facility] [address] [place] [address] Dr. Michelle Cali T4 [Mass/Vol] 7.60 ug/dL Normal 4.80-13.90 [facility] Comment on above: Performed By: #### T SH, CMP, T7, LIPID #### [facility] [address] [address] [address] Michelle Cali GLYCOHEMOGLOBIN A1Con 2022 ADA RECOMMENDATION SEE BELOW Normal [facility] Comment on above: Result Comment: ADA RECOMMENDED LIMIT 4.0 - 6.0 ADA THERAPEUTIC TARGET < 7.0 ACTION SUGGESTED > 7.0 Performed By: #### C BC #### [facility] [address] [address] [address] Michelle Cali Glucose [Mass/Vol] 105 mg/dL Normal [facility] Comment on above: Performed By: #### C BC #### [facility] [address] [address] [address] Michelle Cali HbA1c (Bld) [Mass fraction] 5.3 % Normal 4.5-6.2 [facility] Comment on above: Performed By: #### C BC #### [facility] [address] [address] [address] Michelle Cali IRONon 09-18-2022 Iron [Mass/Vol] 80.0 ug/dL Normal 50.0-170.0 [facility] Comment on above: Performed By: #### I ABIGAIL #### [facility] [address] [address] [address] Michelle Cali LIPID PROFILEon 09-18-2022 CHOL-HDL RATIO NORM SEE BELOW Normal [facility] Comment on above: Result Comment: 3.3 - 4.4 LOW RISK 4.4 - 7.1 AVERAGE RISK 7.1 - 11.0 MODERATE RISK >11.0 HIGH RISK Performed By: #### T SH, CMP, T7, LIPID #### [facility] [address] [place] [address] Dr. Michelle Cali Cholesterol [Mass/Vol] 175 mg/dL Normal <=200 [facility] Comment on above: Performed By: #### T SH, CMP, T7, LIPID #### [facility] [address] [address] [address] Michelle Cali Cholesterol in HDL [Mass/Vol] 72 mg/dL Critically high 40-60 [facility] Comment on above: Performed By: #### T SH, CMP, T7, LIPID #### [facility] [address] [address] [address] Michelle Cali Cholesterol in LDL [Mass/Vol] 85.8 mg/dL Normal [facility] Comment on above: Performed By: #### T SH, CMP, T7, LIPID #### [facility] [address] [address] [address] Michelle Cali Cholesterol.total/Ch olesterol in HDL [Mass ratio] 2.4 {ratio} Normal [facility] Comment on above: Performed By: #### T SH, CMP, T7, LIPID #### [facility] [address] [place] [address] Dr. Michelle Cali HDL NORMAL > or = 60 mg/dl - LOW CARDIOVASCULAR RISK <40 mg/dl - HIGH CARDIOVASCULAR RISK Normal [facility] Comment on above: Performed By: #### T SH, CMP, T7, LIPID #### [facility] [address] [address] [address] Michelle Cali LDL CALC NORMAL SEE BELOW Normal [facility] Comment on above: Result Comment: <100 mg/dl OPTIMAL 100 - 129 mg/dl NEAR OR ABOVE OPTIMAL 130 - 159 mg/dl BORDERLINE HIGH 160 - 189 mg/dl HIGH >190 mg/dl VERY HIGH Performed By: #### T SH, CMP, T7, LIPID #### [facility] [address] [address] [address] Michelle Cali Triglyceride [Mass/Vol] 86 mg/dL Normal <=150 [facility] Comment on above: Performed By: #### T SH, CMP, T7, LIPID #### [facility] [address] [address] [address] Michelle Cali VLDL CALC 17.2 mg/dL Normal [facility] Comment on above: Performed By: #### T SH, CMP, T7, LIPID #### [facility] [address] [address] [address] Michelle Cali PROF 14(COMP METB)on 023 Albumin [Mass/Vol] 4.3 g/dL Normal 3.4-5.0 [facility] Comment on above: Performed By: #### T SH, CMP, T7, LIPID #### [facility] [address] [address] [address] Michelle Cali Albumin/Globulin [Mass ratio] 1.0 {ratio} Normal [facility] Comment on above: Performed By: #### T SH, CMP, T7, LIPID #### [facility] [address] [place] [address] Dr. Michelle Cali ALP [Catalytic activity/Vol] 65 U/L Normal 46-116 [facility] Comment on above: Performed By: #### T SH, CMP, T7, LIPID #### [facility] [address] [place] [address] Dr. Michelle Cali ALT [Catalytic activity/Vol] 17 U/L Normal 14-59 [facility] Comment on above: Performed By: #### T SH, CMP, T7, LIPID #### [facility] [address] [place] [address] Dr. Michelle Cali Anion gap [Moles/Vol] 12.2 mmol/L Normal [facility] Comment on above: Performed By: #### T SH, CMP, T7, LIPID #### [facility] [address] [place] [address] Dr. Michelle Cali AST [Catalytic activity/Vol] 15 U/L Normal 15-37 [facility] Comment on above: Performed By: #### T SH, CMP, T7, LIPID #### [facility] [address] [address] [address] Michelle Cali Bilirubin [Mass/Vol] 0.4 mg/dL Normal 0.2-1.0 [facility] Comment on above: Performed By: #### T SH, CMP, T7, LIPID #### [facility] [address] [place] [address] Dr. Michelle Cali Calcium [Mass/Vol] 9.4 mg/dL Normal 8.5-10.1 [facility] Comment on above: Performed By: #### T SH, CMP, T7, LIPID #### [facility] [address] [address] [address] Michelle Cali Chloride [Moles/Vol] 104 mmol/L Normal 98-107 [facility] Comment on above: Performed By: #### T SH, CMP, T7, LIPID #### [facility] [address] [address] [address] Michelle Cali CO2 [Moles/Vol] 27.7 mmol/L Normal 21.0-32.0 [facility] Comment on above: Performed By: #### T SH, CMP, T7, LIPID #### [facility] [address] [place] [address] Dr. Michelle Cali Creatinine [Mass/Vol] 0.63 mg/dL Normal 0.55-1.02 [facility] Comment on above: Performed By: #### T SH, CMP, T7, LIPID #### [facility] [address] [place] [address] Dr. Michelle Cali EGFR-AF THAI >60 Normal >=60 [facility] Comment on above: Performed By: #### T SH, CMP, T7, LIPID #### [facility] [address] [place] [address] Dr. Michelle Cali EGFR-NON AF THAI >60 Normal >=60 [facility] Comment on above: Performed By: #### T SH, CMP, T7, LIPID #### [facility] [address] [address] [address] Michelle Cali Globulin (S) [Mass/Vol] 4.2 g/dL Normal [facility] Comment on above: Performed By: #### T SH, CMP, T7, LIPID #### [facility] [address] [place] [address] Dr. Michelle Cali Glucose [Mass/Vol] 83 mg/dL Normal 74-106 [facility] Comment on above: Performed By: #### T SH, CMP, T7, LIPID #### [facility] [address] [place] [address] Dr. Michelle Cali Potassium [Moles/Vol] 3.9 mmol/L Normal 3.5-5.1 [facility] Comment on above: Performed By: #### T SH, CMP, T7, LIPID #### [facility] [address] [address] [address] Michelle Cali Protein [Mass/Vol] 8.5 g/dL Critically high 6.4-8.2 [facility] Comment on above: Performed By: #### T SH, CMP, T7, LIPID #### [facility] [address] [place] [address] Dr. Michelle Cali Sodium [Moles/Vol] 140 mmol/L Normal 136-145 [facility] Comment on above: Performed By: #### T SH, CMP, T7, LIPID #### [facility] [address] [place] [address] Dr. Michelle Cali Urea nitrogen [Mass/Vol] 9.0 mg/dL Normal 7.0-18.0 [facility] Comment on above: Performed By: #### T SH, CMP, T7, LIPID #### [facility] [address] [place] [address] Dr. Michelle Cali Urea nitrogen/Creatinine [Mass ratio] 14.3 mg/mg Normal [facility] Comment on above: Performed By: #### T SH, CMP, T7, LIPID #### [facility] [address] [place] [address] Dr. Michelle Cali TSHon 09-18-2022 TSH 1.245 uIU/mL Normal 0.358-3.740 [facility] Comment on above: Performed By: #### T SH, CMP, T7, LIPID #### [facility] [address] [place] [address] ABD/PELV W CONon [...] JEFFREY BEGUM Date: 2022-07-06 01:26 Normal [facility] CBC AUTO DIFFon 07-05-2022 BASO # 0.1 103/ul Normal 0.0-0.1 [facility] Comment on above: Performed By: #### C BC #### [facility] [address] [place] [address] Dr. Michelle Cali Basophils/100 WBC (Bld) 0.9 % Normal 0.2-2.0 [facility] Comment on above: Performed By: #### C BC #### [facility] [address] [address] [address] Michelle Cali EO # 0.1 103/ul Normal 0.0-0.7 [facility] Comment on above: Performed By: #### C BC #### [facility] [address] [address] [address] Michelle Cali Eosinophils/100 WBC (Bld) 1.0 % Normal 0.9-7.0 [facility] Comment on above: Performed By: #### C BC #### [facility] [address] [place] [address] Dr. Michelle Cali Erythrocyte distribution width (RBC) [Ratio] 12.5 % Normal 11.0-15.0 [facility] Comment on above: Performed By: #### C BC #### [facility] [address] [place] [address] Dr. Michelle Cali Hematocrit (Bld) [Volume fraction] 39.6 % Normal 36.0-48.0 [facility] Comment on above: Performed By: #### C BC #### [facility] [address] [place] [address] Dr. Michelle Cali Hemoglobin (Bld) [Mass/Vol] 13.6 g/dL Normal 12.0-16.0 [facility] Comment on above: Performed By: #### C BC #### [facility] [address] [place] [address] Dr. Michelle Cali IG # 0.02 10e3/ul Normal 0.00-0.03 [facility] Comment on above: Performed By: #### C BC #### [facility] [address] [place] [address] Dr. Michelle Cali IG % 0.2 % Normal 0.0-0.5 [facility] Comment on above: Performed By: #### C BC #### [facility] [address] [place] [address] Dr. Michelle Cali LYMPH # 4.0 103/ul Critically high 1.2-3.8 [facility] Comment on above: Performed By: #### C BC #### [facility] [address] [place] [address] Dr. Michelle Cali Lymphocytes/100 WBC (Bld) 44.0 % Normal 20.5-60.0 [facility] Comment on above: Performed By: #### C BC #### [facility] [address] [place] [address] Dr. Michelle Cali MANUAL DIFF REQ NO Normal [facility] Comment on above: Performed By: #### C BC #### [facility] [address] [place] [address] Dr. Michelle Cali MCH (RBC) [Entitic mass] 29.7 pg Normal 26.7-34.0 [facility] Comment on above: Performed By: #### C BC #### [facility] [address] [place] [address] Dr. Michelle Cali MCHC (RBC) [Mass/Vol] 34.3 g/dL Normal 29.9-35.2 [facility] Comment on above: Performed By: #### C BC #### [facility] [address] [place] [address] Dr. Michelle Cali MCV (RBC) [Entitic vol] 86.5 fL Normal 81.0-99.0 [facility] Comment on above: Performed By: #### C BC #### [facility] [address] [place] [address] Dr. Michelle Cali MONO # 0.6 103/ul Normal 0.3-0.8 [facility] Comment on above: Performed By: #### C BC #### [facility] [address] [place] [address] Dr. Michelle Cali Monocytes/100 WBC (Bld) 6.7 % Normal 1.7-12.0 [facility] Comment on above: Performed By: #### C BC #### [facility] [address] [place] [address] Dr. Michelle Cali NEUT # 4.2 103/ul Normal 1.4-6.5 [facility] Comment on above: Performed By: #### C BC #### [facility] [address] [place] [address] Dr. Michelle Cali Neutrophils/100 WBC (Bld) 47.2 % Normal 43.0-75.0 [facility] Comment on above: Performed By: #### C BC #### [facility] [address] [place] [address] Dr. Michelle Cali Platelet mean volume (Bld) [Entitic vol] 11.4 fL Normal 9.5-13.5 [facility] Comment on above: Performed By: #### C BC #### [facility] [address] [place] [address] Dr. Michelle Cali PLT 342 103/ul Normal 150-450 [facility] Comment on above: Performed By: #### C BC #### [facility] [address] [place] [address] Dr. Michelle Cali RBC 4.58 106/ul Normal 4.20-5.40 [facility] Comment on above: Performed By: #### C BC #### [facility] [address] [place] [address] Dr. Michelle Cali WBC 9.0 103/ul Normal 4.0-11.0 [facility] Comment on above: Performed By: #### C BC #### [facility] [address] [place] [address] Dr. Michelle Cali PREG HCG QUALon 07-05-2022 , QUAL Negative Normal NEGATIVE [facility] Comment on above: Performed By: #### P REG #### [facility] [address] [place] [address] Dr. Michelle Cali PROF 14(COMP METB)on 022 Albumin [Mass/Vol] 4.4 g/dL Normal 3.4-5.0 [facility] Comment on above: Performed By: #### C BC #### [facility] [address] [place] [address] Dr. Michelle Cali Albumin/Globulin [Mass ratio] 1.1 {ratio} Normal [facility] Comment on above: Performed By: #### C BC #### [facility] [address] [place] [address] Dr. Michelle Cali ALP [Catalytic activity/Vol] 82 U/L Normal 46-116 [facility] Comment on above: Performed By: #### C BC #### [facility] [address] [place] [address] Dr. Michelle Cali ALT [Catalytic activity/Vol] 22 U/L Normal 14-59 [facility] Comment on above: Performed By: #### C BC #### [facility] [address] [place] [address] Dr. Michelle Cali Anion gap [Moles/Vol] 9.3 mmol/L Normal [facility] Comment on above: Performed By: #### C BC #### [facility] [address] [address] [address] Michelle Cali AST [Catalytic activity/Vol] 17 U/L Normal 15-37 [facility] Comment on above: Performed By: #### C BC #### [facility] [address] [address] [address] Michelle Cali Bilirubin [Mass/Vol] 0.5 mg/dL Normal 0.2-1.0 [facility] Comment on above: Performed By: #### C BC #### [facility] [address] [address] [address] Michelle Cali Calcium [Mass/Vol] 9.1 mg/dL Normal 8.5-10.1 [facility] Comment on above: Performed By: #### C BC #### [facility] [address] [address] [address] Michelle Cali Chloride [Moles/Vol] 104 mmol/L Normal 98-107 [facility] Comment on above: Performed By: #### C BC #### [facility] [address] [address] [address] Michelle Cali CO2 [Moles/Vol] 26.8 mmol/L Normal 21.0-32.0 [facility] Comment on above: Performed By: #### C BC #### [facility] [address] [address] [address] Michelle Cali Creatinine [Mass/Vol] 0.73 mg/dL Normal 0.55-1.02 [facility] Comment on above: Performed By: #### C BC #### [facility] [address] [address] [address] Michelle Cali EGFR-AF THAI >60 Normal >=60 [facility] Comment on above: Performed By: #### C BC #### [facility] [address] [address] [address] Michelle Cali EGFR-NON AF THAI >60 Normal >=60 [facility] Comment on above: Performed By: #### C BC #### [facility] [address] [address] [address] Michelle Cali Globulin (S) [Mass/Vol] 4.1 g/dL Normal [facility] Comment on above: Performed By: #### C BC #### [facility] [address] [address] [address] Michelle Cali Glucose [Mass/Vol] 84 mg/dL Normal 74-106 [facility] Comment on above: Performed By: #### C BC #### [facility] [address] [address] [address] Michelle Cali Potassium [Moles/Vol] 3.1 mmol/L Critically low 3.5-5.1 [facility] Comment on above: Performed By: #### C BC #### [facility] [address] [address] [address] Michelle Cali Protein [Mass/Vol] 8.5 g/dL Critically high 6.4-8.2 [facility] Comment on above: Performed By: #### C BC #### [facility] [address] [address] [address] Michelle Cali Sodium [Moles/Vol] 137 mmol/L Normal 136-145 [facility] Comment on above: Performed By: #### C BC #### [facility] [address] [address] [address] Michelle Cali Urea nitrogen [Mass/Vol] 13.0 mg/dL Normal 7.0-18.0 [facility] Comment on above: Performed By: #### C BC #### [facility] [address] [address] [address] Michelle Cali Urea nitrogen/Creatinine [Mass ratio] 17.8 mg/mg Normal [facility] Comment on above: Performed By: #### C BC #### [facility] [address] [address] [address] Michelle Cali HCG,Urineon 02-07-2021 Beta HCG ( test) Ql (U) Negative Normal [facility] Comment on above: Result Comment: PERF ORMED BY: [facility] [place] [id number] PATHOLOGIST [employer] WENDY TRUONG M.D. Performed By: #### [facility] [place] #### [place] [id number] [facility] 02-07-2021 L Specimen: [id number] Received: 02/07/21 Status: YANNA Chirag Num: [id number] Spec Type: Surgical Subm Dr: Ranjit Coe MD Tissues: A Breast Reduction - Mammoplasty (RIGHT BREAST TISSUE) B Breast Reduction - Mammoplasty (LEFT BREAST TISSUE) Procedures: AFRICA Granda/Gunner Rodas/Samanta L4/2 Patient Age/Sex Location Account Attending Physician Latha Cuevas / [place] [id number] Ranjit Coe MD SPEC NUM: [id number] RECD: 02/07/21 STATUS: YANNA BEARD NUM: [id number] YOUNG: 02/07/21- DR: Ranjit Coe MD ENTERED: 02/07/21 [facility] DR: FAHEEM TYPE: Surgical DEPT: S ENTERED BY: [id number] RECV BY: [id number] ORDERED: HE Stain/8, Gross/Micro L4/2 ORDERED: HE [...] obvious masses or lesions are grossly identified. [employer] sections are submitted in four cassettes labeled A1-A4. (SM/DUYEN) B. Received in formalin labeled with the patient's name, number and left breast tissue is a 379 g aggregate of lozada, smooth to wrinkled skin with underlying yellow lobulated adipose tissue (20 x 15 x 4.5 cm in aggregate). Sectioning reveals approximately 95% yellow lobulated adipose tissue and 5% lozada-white thin fibrous tissue. No obvious masses or lesions Specimen: [id number] Received: 02/07/21 Status: YANNA Beard Num: [id number] Spec Type: Surgical Subm Dr: Ranjit Coe MD Tissues: A Breast Reduction - Mammoplasty (RIGHT BREAST TISSUE) B Breast Reduction - Mammoplasty (LEFT BREAST TISSUE) Procedures: HE Stain/8Gunner/Micro L4/2 Patient: Latha Cuevas [id number] (Continued) Specimen: [id number] Received: 02/07/21 (Continued) Gross Description (Continued) Signed (signature on file) Wendy Truong MD 02/08/21 1713 Specimen: [id number] Received: 02/07/21 Status: YANNA Beard Num: [id number] Spec Type: Surgical Subm Dr: Ranjit Coe MD Tissues: A Breast Reduction - Mammoplasty (RIGHT BREAST TISSUE) B Breast Reduction - Mammoplasty (LEFT BREAST TISSUE) Procedures: HE Stain/8 Gross/Micro L4/2 Patient: Latha Cuevas [id number] (Continued) Specimen: [id number] Received: 02/07/21 (Continued) Gross Description (Continued) are grossly identified. Production [employer]sman sections are submitted in four cassettes labeled B1- B4. (ALMA/DUYEN) Microscopic Description A. Four glass slides with H E stained material have been examined. The microscopic findings support the above pathologic diagnosis. B. Four glass slides with H E stained material have been examined. The microscopic findings support the above pathologic diagnosis. [id number] Specimen: [id number] Received: 02/07/21 Status: YANNA Beard Num: [id number] Spec Type: Surgical Subm Dr: Ranjit Coe MD Tissues: A Breast Reduction - Mammoplasty (RIGHT BREAST TISSUE) B Breast Reduction - Mammoplasty (LEFT BREAST TISSUE) Procedures: HE Stain/8, Gross/Micro L4/2 Patient: Latha Cuevas [id number] (Continued) (more content not included)... Normal [facility] SARS-CoV-2 (COVID-19) RNA LALITO+probe Ql (Unsp spec) Negative Normal Negative [facility] Comment on above: Order Comment: Healt hcare Worker?: N Result Comment: Testing for SARS-CoV-2 by RT-PCR This test was developed and its performance characteristics determined by [employer] and validated at the [facility]. This test has not been FDA [...] is terminated or revoked sooner. PERFORMED BY: [facility] [place] [address] PATHOLOGIST [employer] WENDY TRUONG M.D. Performed By: #### C OVID 19 [facility] #### [place] [id number] [facility] Vital Signs Date Time Vital Sign Value Performing Clinician Lianna browne 06-22-2024 16:27-0500 Body mass index (BMI) [Ratio] 33.03 kg/m2 Roosevelt Mauricio DO Work Phone: [facility] 06-22-2024 16:27-0500 Body weight 87.27 kg Roosevelt Mauricio DO Work Phone: [facility] 06-22-2024 16:27-0500 Diastolic blood pressure 68 mm[Hg] Roosevelt Mauricio DO Work Phone: [facility] 06-22-2024 16:27-0500 Systolic blood pressure 110 mm[Hg] Roosevelt Muaricio DO Work Phone: [facility] 06-14-2024 15:03-0500 Body mass index (BMI) [Ratio] 33.09 kg/m2 Roosevelt Mauricio DO Work Phone: [facility] 06-14-2024 15:03-0500 Body weight 87.45 kg Roosevelt Mauricio DO Work Phone: [facility] 06-14-2024 15:03-0500 Diastolic blood pressure 76 mm[Hg] Roosevelt Mauricio DO Work Phone: [facility] 06-14-2024 15:03-0500 Systolic blood pressure 120 mm[Hg] Roosevelt Mauricio DO Work Phone: [facility] 06-07-2024 15:14-0500 Body mass index (BMI) [Ratio] 32.61 kg/m2 Agata PRUITT Work Phone: [facility] 06-07-2024 15:14-0500 Body weight 86.18 kg Agata PRUITT Work Phone: [facility] 06-07-2024 15:14-0500 Diastolic blood pressure 74 mm[Hg] Agata Danville PA Work Phone: [facility] 06-07-2024 15:14-0500 Systolic blood pressure 116 mm[Hg] Agata Susana PA Work Phone: [facility] 05-24-2024 15:21-0500 Body mass index (BMI) [Ratio] 32.61 kg/m2 Agata Danville PA Work Phone: [facility] 05-24-2024 15:21-0500 Body weight 86.18 kg Agata Danville PA Work Phone: [facility] 05-24-2024 15:21-0500 Diastolic blood pressure 70 mm[Hg] Agata Danville PA Work Phone: [facility] 05-24-2024 15:21-0500 Systolic blood pressure 110 mm[Hg] Agata Susana PA Work Phone: [facility] 05-10-2024 14:52-0400 Body mass index (BMI) [Ratio] 32.27 kg/m2 Roosevelt Mauricio DO Work Phone: [facility] 05-10-2024 14:52-0400 Body weight 85.28 kg Roosevelt Mauricio DO Work Phone: [facility] 05-10-2024 14:52-0400 Diastolic blood pressure 76 mm[Hg] Roosevelt Mauricio DO Work Phone: [facility] 05-10-2024 14:52-0400 Systolic blood pressure 112 mm[Hg] Roosevelt Mauricio DO Work Phone: [facility] 04-27-2024 15:49-0400 Body mass index (BMI) [Ratio] 31.41 kg/m2 Agata Danville PA Work Phone: [facility] 04-27-2024 15:49-0400 Body weight 83.01 kg Agata Danville PA Work Phone: [facility] 04-27-2024 15:49-0400 Diastolic blood pressure 68 mm[Hg] Agata Danville PA Work Phone: [facility] 04-27-2024 15:49-0400 Systolic blood pressure 110 mm[Hg] Agata PRUITT Work Phone: [facility] Encounters Encounter Date Encounter Type Care Provider Facility Start: 06-22-2024 End: 06-22-2024 flow sheet Roosevelt Mauricio DO Work Phone: [facility] Comment on above: 36 weeks gestation o f ; Third trimester Start: 06-22-2024 End: 06-22-2024 Bamboo flowsheet Roosevelt Mauricio DO Work Phone: [facility] Start: 06-22-2024 End: 06-22-2024 Bamboo flowsheet Roosevelt Mauricio DO Work Phone: [facility] Start: 06-14-2024 End: 06-14-2024 ambulatory ROOSEVELT MAURICIO Not Available Start: 06-14-2024 End: 06-14-2024 flow sheet Roosevelt Mauricio DO Work Phone: [facility] Comment on above: Third trimester preg shay; 35 weeks gestation of Start: 06-14-2024 End: 06-14-2024 Bamboo flowsheet Roosevelt Mauricio DO Work Phone: [facility] Start: 06-14-2024 End: 06-14-2024 Bamboo flowsheet Roosevelt Mauricio DO Work Phone: [facility] Start: 06-07-2024 End: 06-07-2024 ambulatory AGATA MEZA Not Available Start: 06-07-2024 End: 06-07-2024 flow sheet Agata PRUITT Work Phone: [facility] Comment on above: Third trimester preg shay; 34 weeks gestation of Start: 05-24-2024 End: 05-24-2024 ambulatory AGATA MEZA Not Available Start: 05-24-2024 End: 05-24-2024 flow sheet Agata PRUITT Work Phone: [facility] Comment on above: Third trimester preg shay; 34 weeks gestation of Start: 05-24-2024 End: 05-24-2024 Bamboo flowsheet Agata PRUITT Work Phone: [facility] Start: 05-24-2024 End: 05-24-2024 Bamboo flowsheet Agata PRUITT Work Phone: [facility] Start: 05-10-2024 End: 05-10-2024 flow sheet Roosevelt Mauricio DO Work Phone: [facility] Comment on above: 30 weeks gestation o f ; Third trimester Start: 05-10-2024 End: 05-10-2024 ambulatory ROOSEVELT MAURICIO Not Available Start: 05-10-2024 End: 05-10-2024 Bamboo flowsheet Roosevelt Mauricio DO Work Phone: [facility] Start: 05-10-2024 End: 05-10-2024 Bamboo flowsheet Roosevelt Mauricio DO Work Phone: [facility] Start: 04-27-2024 End: 04-27-2024 ambulatory AGATA MEZA Not Available Start: 04-27-2024 End: 04-27-2024 flow sheet Agata PRUITT Work Phone: [facility] Comment on above: Third trimester preg shay; 28 weeks gestation of ; size inconsistent with dates Start: 04-27-2024 End: 04-27-2024 Bamboo flowsheet Agata PRUITT Work Phone: [facility] Start: 04-27-2024 End: 04-27-2024 Bamboo flowsheet Agata PRUITT Work Phone: [facility] Start: 03-30-2024 End: 03-30-2024 ambulatory AGATA SUSANA Not Available Start: 03-02-2024 End: 03-02-2024 ambulatory ROOSEVELT MAURICIO Not Available Start: 02-10-2024 End: 02-10-2024 ambulatory AGATA SUSANA Not Available Start: 01-13-2024 End: 01-13-2024 ambulatory ROOSEVELT MAURICIO Not Available Start: 12-18-2023 End: 12-18-2023 ambulatory ROOSEVELT MAURCIIO Not Available Start: 12-04-2022 End: 12-04-[address] SHANTELL SIMON . Facility:[facility] Start: 09-18-2022 End: 09-19-[address] JESUS TSANG . Facility:[facility] Start: 07-05-2022 End: 07-06-[address] JESUS TSANG . Facility:[facility] Start: 05-23-2022 End: 05-23-[address] JESUS TSANG . Facility: Procedures Date Procedure Procedure Detail Performing Clinician Start: 06-22-2024 Urnls dip stick/tabl et rgnt non-auto w/o micrscp Roosevelt Mauricio DO Work Phone: Start: 06-14-2024 Urnls dip stick/tabl et rgnt non-auto w/o micrscp Roosevelt Mauricio DO Work Phone: Start: 06-07-2024 Urnls dip stick/tabl et rgnt non-auto w/o micrscp Agata PRUITT Work Phone: Start: 05-24-2024 Urnls dip stick/tabl et rgnt non-auto w/o micrscp Agata PRUITT Work Phone: Start: 05-10-2024 Urnls dip stick/tabl et rgnt non-auto w/o micrscp Roosevelt Mauricio DO Work Phone: Start: 04-27-2024 Urnls dip stick/tabl et rgnt non-auto w/o micrscp Agata PRUITT Work Phone: Start: 04-21-2023 Cytp cerv/vag auto t hin layer prep mnl screen Roosevelt Mauricio DO Work Phone: Plan of Treatment Date Care Activity Detail Author Start: 06-29-2024 End: 06-29-2024 Patient encounter procedure 06/29/2024 4:00 PM EST Routine [facility] [address] [place] [address] Roosevelt Martínez, DO [address] [place] [address] [facility] Start: 06-22-2024 End: 06-22-2024 Patient encounter procedure [facility] Comment on above: Arrived Start: 06-22-2024 End: 06-22-2025 Strep B DNA probe, amplification Strep B DNA probe, amplification Lab Routine Third trimester Expected: 06/22/2024 (Approximate), Expires: 06/22/2025 [facility] Work Phone: Comment on above: Expected: 06/22/2024 (Approximate), Expires: 06/22/2025 Start: 06-14-2024 End: 06-14-2024 Patient encounter procedure 06/14/2024 2:20 PM EST Routine [facility] [address] [facility] [place] [id number] Roosevelt Martínez DO [address] [place] [address] [facility] Start: 06-07-2024 End: 06-07-2024 Patient encounter procedure 06/07/2024 2:50 PM EST Routine [facility] [address] [place] [phone] Agata Meza PA [address] [place] [address] [facility] Start: 05-24-2024 End: 05-24-2024 Patient encounter procedure 05/24/2024 2:40 PM EST Routine [facility] [address] [place] [phone] Agata Meza, PA [address] [place] [address] [facility] Start: 05-10-2024 End: 05-10-2024 Patient encounter procedure 05/10/2024 2:50 PM EDT Routine [facility] [address] [facility] [id number] Roosevelt Martínez, DO [address] [facility] [address] [place], [place] [id number] Arrived [facility] Comment on above: Arrived Start: 05-10-2024 End: 05-10-2024 Professional / ancillary services management 05/10/2024 2:00 PM EDT Ancillary Procedure [facility] [address] [facility] [phone] [facility] Start: 04-27-2024 End: 04-27-2025 US for US OB SCAN FOR GROWTH Imaging Routine size inconsistent with dates Expected: 04/27/2024 (Approximate), Expires: 04/27/2025 [facility] Work Phone: Comment on above: Expected: 04/27/2024 (Approximate), Expires: 04/27/2025 Payers Date Payer Category Payer Medicaid [id number] 2024 Medicaid [id number] 2018 [facility] BCBS [id number] 2018 Unknown BCBS BCBS xxxxxx [id number] [address] [place] [address] [id number] 2001 Unknown [id number] [id number]. 593 2001 Unknown [id number] 2.16.840.1.643082.3.579.2. 593 2001 Unknown [id number] 2.16.840.1.204217.3.579.2. 593 2001 Unknown [id number] 2.16.840.1.392923.3.579.2. 593 2001 Unknown [id number] 2.16.840.1.032505.3.579.2. 1259 2001 Unknown [id number] 2.16.840.1.989360.3.579.2. 9 2001 Unknown [id number] 2.16.840.1.125164.3.579.2. 1259 2001 Unknown [id number] 2.16.840.1.360184.3.579.2. 9 2001 Unknown [id number] 2.16.840.1.359757.3.579.2. 9 2001 Unknown [id number] 2.16.840.1.496835.3.579.2. 9 2001 Unknown [id number] 2.16.840.1.416683.3.579.2. 1259 2001 Unknown [id number] 2.16.840.1.302575.3.579.2. 1258 2001 Unknown [id number] 2.16.840.1.781946.3.579.2. 9 2001 Unknown [id number] 2.16.840.1.204205.3.579.2. 1259 1959 Self-pay 1959 Unknown [id number] Social History Date Type Detail Facility [facility]: [facility] Start: 11-19-2023 Tobacco use and exposure Smoke less tobacco non-user [facility] Start: 03-30-2024 Alcoholic beverage intake Life time non-drinker (finding) [facility] Start: 11-19-2023 End: 06-22-2024 [facility] Start: 11-19-2023 Tobacco use panel [facility] Start: 04-20-2023 Alcohol Comment Caffeine intake: non e [facility] Start: 10-27-2023 [facility] Start: 2001 Sex assigned at Not on file [facility] Start: 05-10-2024 End: 06-22-2024 Alcoholic beverage intake Current drinker of alcohol (finding) [facility] Clinical Notes 04-27-2024 to 06-22-2024 EDMOND Osborn - 06/22/2024 3:50 PM Zechariah Narvaez LPN - 06/14/2024 2:20 PM EDMOND Niño - 06/07/2024 2:50 PM EDMOND Niño - 05/24/2024 2:40 PM Zechariah Narvaez LPN - 05/10/2024 2:50 PM EDT Note Date & Type Note Facility 06-22-2024 History of Presen t illness Narrative Reason for Appointment: Patient ID: Latha Cuevas is a 24 y.o. female who presents for No chief complaint on file. Patient presents today for Return OB appointment. 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 History of shingles 11/23/2023 History of 2019 novel coronavirus disease (COVID-19) 11/23/2023 Resolved Ambulatory Problems Diagnosis Date Noted No Resolved Ambulatory Problems Past Medical History: Diagnosis Date Abnormal Pap smear of cervix Acne vulgaris Acne, unspecified Acute recurrent frontal sinusitis Bilateral thoracic back pain Bloody diarrhea Chest pain Chondromalacia patellae of right knee COVID-19 Cyst of meniscus of right knee De Quervain's tenosynovitis Dermatitis Eczema Fatigue Gastritis without bleeding 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) Hyperplasia of tonsils Hypothyroidism (acquired) (CMS/HCC) Internal derangement of knee, right Meralgia paresthetica of both lower extremities Ovarian cyst Radiculopathy Sebaceous cyst Shingles Sinusitis, acute Tonsillar hypertrophy HISTORY PAST MEDICAL HISTORY SOCIAL HISTORY Past Medical History: Diagnosis Date Abnormal Pap smear of cervix Acne vulgaris Acne, unspecified Acute recurrent frontal sinusitis Allergic rhinitis Allergic rhinitis Bilateral thoracic back pain Bloody diarrhea Chest pain Chondromalacia patellae of right knee Chronic adenotonsillitis COVID-19 Cyst of meniscus of right knee De Quervain's tenosynovitis Dermatitis Eczema Fatigue Gastritis without bleeding 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) Hyperplasia of tonsils Hypothyroidism (acquired) (CMS/HCC) Internal derangement of knee, right Meralgia paresthetica of both lower extremities Ovarian cyst Pharyngitis Radiculopathy Sebaceous cyst Shingles Sinusitis, acute Tonsillar hypertrophy UARS (upper airway resistance syndrome) Social History Tobacco Use Smoking status: Never Smokeless tobacco: Never Substance Use Topics Alcohol use: Yes Alcohol/week: 4.0 standard drinks of alcohol Types: 4 Cans of beer per week Comment: Caffeine intake: none Drug use: Never FAMILY HISTORY Family History Problem Relation Name Age of Onset No Known Problems Mother No Known Problems Father No Known Problems Sister No Known Problems Brother Breast cancer Maternal Grandmother Nat Heart disease Maternal Grandfather Diabetes Paternal Grandmother Kathya Heart disease Paternal Grandfather SURGICAL HISTORY Past [...] reviewed. Vitals: Estimated body mass index is 33.03 kg/m as calculated from the following: Height as of 04/21/23: 5' 4 . Weight as of this encounter: 192 lb 6.4 oz. BP: 110/68 Patient's last menstrual period was 10/13/2023. ASSESSMENT & PLAN ICD-10-CM 1. 36 weeks gestation of Z3A.36 POCT urinalysis dipstick manually resulted 2. Third trimester Z34.93 POCT urinalysis dipstick manually resulted Strep B DNA probe, amplification Strep B DNA probe, amplification Return OB: Patient presents today for a routine obstetrics appointment. Patient is currently 36w1d . Patient states she is doing well but has complaints of being tired due to current . Patient has verbalizes frequent movement. labor precautions was discussed/given and patient was instructed to perform kick counts three times a day. Patient is doing well but has complaints of being tired and having maternal discomfort due to . Patient verbalized frequent movement and was instructed to perform kick counts three times per day. labor precautions were given, LARC consent was signed/declined, and GBS was obtained. Cervical check was performed and patient is 1cm dilated. Orders Placed This Encounter Procedures Strep B DNA probe, amplification POCT urinalysis dipstick manually resulted Follow Up: Patient is to return to office in 1 week for routine OB appointment Orders Placed This Encounter Procedures Strep B DNA probe, amplification POCT urinalysis dipstick manually resulted Follow Up: Patient is to return to office in 1 week for routine OB appointment. 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 History of shingles 11/23/2023 History of 2019 novel coronavirus disease (COVID-19) 11/23/2023 Resolved Ambulatory Problems Diagnosis Date Noted No Resolved Ambulatory Problems Past Medical History: Diagnosis Date Abnormal Pap smear of cervix Acne vulgaris Acne, unspecified Acute recurrent frontal sinusitis Bilateral thoracic back pain Bloody diarrhea Chest pain Chondromalacia patellae of right knee COVID-19 Cyst of meniscus of right knee De Quervain's tenosynovitis Dermatitis Eczema Fatigue Gastritis without bleeding 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) Hyperplasia of tonsils Hypothyroidism (acquired) (CMS/HCC) Internal derangement of knee, right Meralgia paresthetica of both lower extremities Ovarian cyst Radiculopathy Sebaceous cyst Shingles Sinusitis, acute Tonsillar hypertrophy HISTORY PAST MEDICAL HISTORY SOCIAL HISTORY Past Medical History: Diagnosis Date Abnormal Pap smear of cervix Acne vulgaris Acne, unspecified Acute recurrent frontal sinusitis Allergic rhinitis Allergic rhinitis Bilateral thoracic back pain Bloody diarrhea Chest pain Chondromalacia patellae of right knee Chronic adenotonsillitis COVID-19 Cyst of meniscus of right knee De Quervain's tenosynovitis Dermatitis Eczema Fatigue Gastritis without bleeding 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) Hyperplasia of tonsils Hypothyroidism (acquired) (CMS/HCC) Internal derangement of knee, right Meralgia paresthetica of both lower extremities Ovarian cyst Pharyngitis Radiculopathy Sebaceous cyst Shingles Sinusitis, acute Tonsillar hypertrophy UARS (upper airway resistance syndrome) Social History Tobacco Use Smoking status: Never Smokeless tobacco: Never Substance Use Topics Alcohol use: Yes Alcohol/week: 4.0 standard drinks of alcohol Types: 4 Cans of beer per week Comment: Caffeine intake: none Drug use: Never FAMILY HISTORY Family History Problem Relation Name Age of Onset No Known Problems Mother No Known Problems Father No Known Problems Sister No Known Problems Brother Breast cancer Maternal Grandmother Nat Heart disease Maternal Grandfather Diabetes Paternal Grandmother Kathya Heart disease Paternal Grandfather SURGICAL HISTORY Past [...] Exam Constitutional: Appearance: Normal appearance. She is well-developed. Cardiovascular: Rate and Rhythm: Normal rate and regular rhythm. Pulmonary: Effort: Pulmonary effort is normal. Breath sounds: Normal breath sounds. Abdominal: General: Bowel sounds are normal. There is no distension. Palpations: Abdomen is soft. Tenderness: There is no abdominal tenderness. There is no guarding or rebound. Musculoskeletal: General: No swelling. Normal range of motion. Right lower leg: No edema. Left lower leg: No edema. Neurological: Mental Status: She is alert and oriented to person, place, and time. Skin: General: Skin is warm and dry. Psychiatric: Mood and Affect: Mood normal. Behavior: Behavior normal. Vitals and nursing note reviewed. Exam conducted with a dye tub tender present. Vitals: Estimated body mass index is 33.09 kg/m as calculated from the following: Height as of 04/21/23: 5' 4 . Weight as of this encounter: 192 lb 12.8 oz. BP: 120/76 Patient's last menstrual period was 10/13/2023. ASSESSMENT & PLAN ICD-10-CM 1. Third trimester Z34.93 POCT urinalysis dipstick manually resulted 2. 35 weeks gestation of Z3A.35 POCT urinalysis dipstick manually resulted Return OB: Patient presents today for a routine obstetrics appointment. Patient is currently 35w0d . Patient states she is doing well but has complaints of being tired due to current . Patient has verbalizes frequent movement. labor precautions was discussed/given and patient was instructed to perform kick counts three times a day. Orders Placed This Encounter Procedures POCT urinalysis dipstick manually resulted Follow Up: Patient is to return to office in 1 week for routine OB appointment. 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 History of shingles 11/23/2023 History of 2019 novel coronavirus disease (COVID-19) 11/23/2023 Resolved Ambulatory Problems Diagnosis Date Noted No Resolved Ambulatory Problems Past Medical History: Diagnosis Date Abnormal Pap smear of cervix Acne vulgaris Acne, unspecified Acute recurrent frontal sinusitis Bilateral thoracic back pain Bloody diarrhea Chest pain Chondromalacia patellae of right knee COVID-19 Cyst of meniscus of right knee De Quervain's tenosynovitis Dermatitis Eczema Fatigue Gastritis without bleeding 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) Hyperplasia of tonsils Hypothyroidism (acquired) (CMS/HCC) Internal derangement of knee, right Meralgia paresthetica of both lower extremities Ovarian cyst Radiculopathy Sebaceous cyst Shingles Sinusitis, acute Tonsillar hypertrophy HISTORY PAST MEDICAL HISTORY SOCIAL HISTORY Past Medical History: Diagnosis Date Abnormal Pap smear of cervix Acne vulgaris Acne, unspecified Acute recurrent frontal sinusitis Allergic rhinitis Allergic rhinitis Bilateral thoracic back pain Bloody diarrhea Chest pain Chondromalacia patellae of right knee Chronic adenotonsillitis COVID-19 Cyst of meniscus of right knee De Quervain's tenosynovitis Dermatitis Eczema Fatigue Gastritis without bleeding 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) Hyperplasia of tonsils Hypothyroidism (acquired) (CMS/HCC) Internal derangement of knee, right Meralgia paresthetica of both lower extremities Ovarian cyst Pharyngitis Radiculopathy Sebaceous cyst Shingles Sinusitis, acute Tonsillar hypertrophy UARS (upper airway resistance syndrome) Social History Tobacco Use Smoking status: Never Smokeless tobacco: Never Substance Use Topics Alcohol use: Yes Alcohol/week: 4.0 standard drinks of alcohol Types: 4 Cans of beer per week Comment: Caffeine intake: none Drug use: Never FAMILY HISTORY Family History Problem Relation Name Age of Onset No Known Problems Mother No Known Problems Father No Known Problems Sister No Known Problems Brother Breast cancer Maternal Grandmother Nat Heart disease Maternal Grandfather Diabetes Paternal Grandmother Kathya Heart disease Paternal Grandfather SURGICAL HISTORY Past [...] reviewed. Vitals: Estimated body mass index is 32.61 kg/m as calculated from the following: Height as of 04/21/23: 5' 4 . Weight as of 05/24/24: 190 lb. BP: Patient's last menstrual period was 10/13/2023. ASSESSMENT & PLAN ICD-10-CM 1. Third trimester Z34.93 POCT urinalysis dipstick manually resulted 2. 34 weeks gestation of Z3A.34 Return OB: Patient presents today for a routine obstetrics appointment. Patient is currently 34w0d . 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 History of shingles 11/23/2023 History of 2019 novel coronavirus disease (COVID-19) 11/23/2023 Resolved Ambulatory Problems Diagnosis Date Noted No Resolved Ambulatory Problems Past Medical History: Diagnosis Date Abnormal Pap smear of cervix Acne vulgaris Acne, unspecified Acute recurrent frontal sinusitis Bilateral thoracic back pain Bloody diarrhea Chest pain Chondromalacia patellae of right knee COVID-19 Cyst of meniscus of right knee De Quervain's tenosynovitis Dermatitis Eczema Fatigue Gastritis without bleeding 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) Hyperplasia of tonsils Hypothyroidism (acquired) (CMS/HCC) Internal derangement of knee, right Meralgia paresthetica of both lower extremities Ovarian cyst Radiculopathy Sebaceous cyst Shingles Sinusitis, acute Tonsillar hypertrophy HISTORY PAST MEDICAL HISTORY SOCIAL HISTORY Past Medical History: Diagnosis Date Abnormal Pap smear of cervix Acne vulgaris Acne, unspecified Acute recurrent frontal sinusitis Allergic rhinitis Allergic rhinitis Bilateral thoracic back pain Bloody diarrhea Chest pain Chondromalacia patellae of right knee Chronic adenotonsillitis COVID-19 Cyst of meniscus of right knee De Quervain's tenosynovitis Dermatitis Eczema Fatigue Gastritis without bleeding 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) Hyperplasia of tonsils Hypothyroidism (acquired) (CMS/HCC) Internal derangement of knee, right Meralgia paresthetica of both lower extremities Ovarian cyst Pharyngitis Radiculopathy Sebaceous cyst Shingles Sinusitis, acute Tonsillar hypertrophy UARS (upper airway resistance syndrome) Social History Tobacco Use Smoking status: Never Smokeless tobacco: Never Substance Use Topics Alcohol use: Yes Alcohol/week: 4.0 standard drinks of alcohol Types: 4 Cans of beer per week Comment: Caffeine intake: none Drug use: Never FAMILY HISTORY Family History Problem Relation Name Age of Onset No Known Problems Mother No Known Problems Father No Known Problems Sister No Known Problems Brother Breast cancer Maternal Grandmother Nat Heart disease Maternal Grandfather Diabetes Paternal Grandmother Kathya Heart disease Paternal Grandfather SURGICAL HISTORY Past [...] reviewed. Vitals: Estimated body mass index is 32.61 kg/m as calculated from the following: Height as of 04/21/23: 5' 4 . Weight as of this encounter: 190 lb. BP: 110/70 Patient's last menstrual period was 10/13/2023. ASSESSMENT & PLAN ICD-10-CM 1. Third trimester Z34.93 POCT urinalysis dipstick manually resulted 2. 34 weeks gestation of Z3A.34 Return OB: Patient presents today for a routine obstetrics appointment. Patient is currently 32w1d . Patient states she is doing well [...] week for routine OB appointment. 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 History of shingles 11/23/2023 History of 2019 novel coronavirus disease (COVID-19) 11/23/2023 Resolved Ambulatory Problems Diagnosis Date Noted No Resolved Ambulatory Problems Past Medical History: Diagnosis Date Abnormal Pap smear of cervix Acne vulgaris Acne, unspecified Acute recurrent frontal sinusitis Bilateral thoracic back pain Bloody diarrhea Chest pain Chondromalacia patellae of right knee COVID-19 Cyst of meniscus of right knee De Quervain's tenosynovitis Dermatitis Eczema Fatigue Gastritis without bleeding 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) Hyperplasia of tonsils Hypothyroidism (acquired) (CMS/HCC) Internal derangement of knee, right Meralgia paresthetica of both lower extremities Ovarian cyst Radiculopathy Sebaceous cyst Shingles Sinusitis, acute Tonsillar hypertrophy HISTORY PAST MEDICAL HISTORY SOCIAL HISTORY Past Medical History: Diagnosis Date Abnormal Pap smear of cervix Acne vulgaris Acne, unspecified Acute recurrent frontal sinusitis Allergic rhinitis Allergic rhinitis Bilateral thoracic back pain Bloody diarrhea Chest pain Chondromalacia patellae of right knee Chronic adenotonsillitis COVID-19 Cyst of meniscus of right knee De Quervain's tenosynovitis Dermatitis Eczema Fatigue Gastritis without bleeding 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) Hyperplasia of tonsils Hypothyroidism (acquired) (CMS/HCC) Internal derangement of knee, right Meralgia paresthetica of both lower extremities Ovarian cyst Pharyngitis Radiculopathy Sebaceous cyst Shingles Sinusitis, acute Tonsillar hypertrophy UARS (upper airway resistance syndrome) Social History Tobacco Use Smoking status: Never Smokeless tobacco: Never Substance Use Topics Alcohol use: Yes Alcohol/week: 4.0 standard drinks of alcohol Types: 4 Cans of beer per week Comment: Caffeine intake: none Drug use: Never FAMILY HISTORY Family History Problem Relation Name Age of Onset No Known Problems Mother No Known Problems Father No Known Problems Sister No Known Problems Brother Breast cancer Maternal Grandmother Nat Heart disease Maternal Grandfather Diabetes Paternal Grandmother Kathya Heart disease Paternal Grandfather SURGICAL HISTORY Past [...] Exam Constitutional: Appearance: Normal appearance. She is well-developed. Cardiovascular: Rate and Rhythm: Normal rate and regular rhythm. Pulmonary: Effort: Pulmonary effort is normal. Breath sounds: Normal breath sounds. Abdominal: General: Bowel sounds are normal. There is no distension. Palpations: Abdomen is soft. Tenderness: There is no abdominal tenderness. There is no guarding or rebound. Musculoskeletal: General: No swelling. Normal range of motion. Right lower leg: No edema. Left lower leg: No edema. Neurological: Mental Status: She is alert and oriented to person, place, and time. Skin: General: Skin is warm and dry. Psychiatric: Mood and Affect: Mood normal. Behavior: Behavior normal. Vitals and nursing note reviewed. Exam conducted with a dye tub tender present. Vitals: Estimated body mass index is 32.27 kg/m as calculated from the following: Height as of 04/21/23: 5' 4 . Weight as of this encounter: 188 lb. BP: 112/76 Patient's last menstrual period was 10/13/2023. ASSESSMENT & PLAN ICD-10-CM 1. 30 weeks gestation of Z3A.30 POCT urinalysis dipstick manually resulted 2. Third trimester Z34.93 Return OB: Patient presents today for a routine obstetrics appointment. Patient is currently 30w0d . Patient states she is doing well [...] week for routine OB appointment. 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 History of shingles 11/23/2023 History [...] Eczema Fatigue Gastritis without bleeding 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) Hyperplasia [...] Eczema Fatigue Gastritis without bleeding 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) Hyperplasia [...] of: EDMOND Osborn documented in this encounter [facility] Evaluation note Diagnosis Third trimester state, incidental 28 weeks gestation of size inconsistent with dates [facility] Diagnosis 30 weeks gestation of Third trimester state, incidental [facility] Diagnosis Third trimester state, incidental 34 weeks gestation of [facility]* Diagnosis Third trimester state, incidental 35 weeks gestation of [facility]* Diagnosis 36 weeks gestation of Third trimester state, incidental documented in this encounter [facility] Summary Purpose Family History No Family History Records FoundNo Family History Records FoundNo Family History Records Found Advance Directives No Advanced Directives Records FoundNo Advanced Directives Records FoundNo Advanced Directives Records Found Additional Source Comments INFORMATION SOURCE (unrecogn ized section and content) DATE CREATED AUTHOR 08/11/2021 [facility] DATE CREATED AUTHOR AUTHOR'S ORGANIZ ATION 12/09/2022 [facility] DATE CREATED AUTHOR AUTHOR'S ORGANIZ ATION 06/17/2024 [facility] EPIC Reason for Visit (unrecogniz ed section and content) Reason Comments Routine Visit Care Teams (unrecognized sec tion and content) 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 [employer] [facility]. provides no warranty or guarantee of the accuracy or completeness of information in this document.
== END 2024-06-22 19:50 | disposition home or self-care (01) ==
LOC: LAB 19:49
PROVIDERS: PCP Family Medicine; Visit Provider Obstetrics & Gynecology
DX: Z34.93 Encounter for supervision of normal pregnancy, unspecified, third trimester (principal)
CPT/HCPCS: 87081; 87150

== ENCOUNTER 2024-07-11 20:01 | Inpatient (IN) | payer BC, MEDICAID, SELFPAY ==
--- OUTSIDE RECORDS SUMMARY | 2024-07-11 20:06 | XMS_ITS | CCD ---
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 Name Role Phone MARKER ., DR STINSON [...] [employer] Unavailable KEL, JEFFREY Consulting Unavailable Jesus Tsang MD Primary Care Provider [phone] ROOSEVELT MARTÍNEZ Attending Unavailable SUSANA, AGATA Attending Unavailable MAURICIO, ROOSEVELT Attending Unavailable SUSANA, AGATA Attending Unavailable SUSANA, AGATA Attending Unavailable MAURICIO, ROOSEVELT Attending Unavailable SUSANA, AGATA Attending Unavailable SUSANA, AGATA Attending Unavailable MAURICIO, ROOSEVELT Attending Unavailable MAURICIO, ROOSEVELT Attending Unavailable MAURICIO, ROOSEVELT Attending Unavailable MAURICIO, ROOSEVELT Attending Unavailable Medications Completed/Discontinued Medications Medication Drug Class(es) Dates Sig (Normalized) Sig (Original) amoxicillin 500 mg oral capsule (4 sources) Penicillin-class Antibacterial Start: 03-01-2024 End: 03-30-2024 take 1 capsule by mouth in the morning amoxicillin (Amoxil) 500 MG capsule Take 500 mg by mouth in the morning and 500 mg before bedtime. 03/01/2024 03/30/2024 Discontinued nitrofurantoin, macrocrystals 25 mg / nitrofurantoin, monohydrate 75 mg oral capsule (2 sources) Nitrofuran Antibacterial Start: 03-22-2024 End: 03-30-2024 take 1 capsule by mouth in the morning nitrofurantoin, macrocrystal-monohydr ate, (Macrobid) 100 MG capsule Indications: UTI symptoms Take 1 capsule (100 mg) by mouth in the morning and 1 capsule (100 mg) before bedtime. Do all this for 7 days. 14 capsule 03/22/2024 03/30/2024 Discontinued omeprazole 20 mg delayed release oral capsule (20 sources) Proton Pump Inhibitor Start: 03-30-2024 End: 06-22-2024 take 1 capsule by mouth before mealtime omeprazole (PriLOSEC) [address] capsule Indications: Gastroesophageal Reflux Disease , Heartburn Take [...] 04-27-2024 Episodic Other and delivery including normal (16 sources) Third trimester ; Translations: [Encounter for supervision of normal , unspecified, third trimester] 04-27-2024 Episodic Other upper respiratory disease (20 sources) Allergic rhinitis; Translations: [Allergic rhinitis, unspecified] Onset: 11-19-2023 11-19-2023 Chronic Other upper respiratory infections (1 source) Chronic sinusitis, unspecified; Translations: [CHRONIC SINUSITIS UNSPECIFIED] Onset: 05-26-2022 Chronic Residual codes; unclassified (20 sources) Upper airway resistance syndrome; Translations: [Other [...] [36 weeks gestation of ] 06-22-2024 Episodic Residual codes; unclassified (2 sources) Gestation period, 37 weeks; Translations: [37 weeks gestation of ] 06-29-2024 Episodic Residual codes; unclassified (2 sources) Gestation period, 38 weeks; Translations: [38 weeks gestation of ] 07-07-2024 Episodic Past or Other Problems Problem Classification Problem Date Documented Date Episodic/Chronic Abdominal pain (1 source) Left upper quadrant pain; Translations: [LEFT UPPER QUADRANT PAIN] Onset: 07-08-2022 Episodic Nausea and vomiting (4 sources) Nausea; Translations: [Nausea with vomiting, unspecified] Onset: 07-05-2022 Episodic Other complications of (2 sources) Gastroesophageal reflux disease in ; Translations: [Diseases of the digestive system complicating , unspecified trimester] 03-30-2024 Episodic Other infections; including parasitic (20 sources) History of herpes zoster; Translations: [Personal history of other infectious and parasitic diseases] Onset: 11-23-2023 11-23-2023 Episodic Other infections; including parasitic (20 sources) Personal history of other infectious and parasitic diseases; Translations: [History of 2019 novel coronavirus disease (COVID-19)] Onset: 11-23-2023 11-23-2023 Episodic Other nervous system disorders (20 sources) History of Guillain [place] syndrome; Translations: [Personal history of other diseases of the nervous system and sense organs] Onset: 11-23-2023 11-23-2023 Episodic Other nutritional; endocrine; and metabolic disorders (1 source) Abnormal weight loss; Translations: [ABNORMAL WEIGHT LOSS] Onset: 07-08-2022 Episodic Other screening for suspected conditions (not mental disorders or infectious disease) (2 sources) Patient encounter status; Translations: [Encounter for screening for diabetes mellitus] 03-30-2024 Episodic Other upper respiratory disease (3 sources) Unspecified disorder of nose and nasal sinuses; Translations: [UNS DISORDER NOSE AND NASAL SINUSES] Onset: 05-23-2022 Episodic Other upper respiratory infections (20 sources) Acute frontal sinusitis; Translations: [Acute frontal sinusitis, unspecified] Onset: 11-19-2023 11-19-2023 Episodic Residual codes; unclassified (2 sources) Gestation period, 24 weeks; Translations: [24 weeks gestation of ] 03-30-2024 Episodic Results Test Name Value Interpretation Reference Range Facility Urinalysis macro (dipstick) panel (U)on 06-29-2024 Bilirubin, UA Negative Negative - 4(70) +++ mg/dL [facility] Blood, UA Negative Negative - 50 Gabriele/mcL [facility] Clarity, UA Clear [facility] re Color, UA Yellow [facility] Health[facility] Glucose, UA Negative Negative - 1999(110) ++++ mg/dL [facility] Interpretation and review of laboratory results Abnormal [facility] Ketones, UA Negative Negative - 160(16) ++++ mg/dL [facility] Leukocytes, UA Negative Negative - 500+++ Alexsandra/mcL [facility] Nitrite, UA Negative Negative - Positive [facility] pH, UA 6.5 5 - 9 [facility] Protein, UA Negative Negative - 1999(20) ++++ mg/dL [facility] Spec Grav, UA 1.02 1 - 1.03 [facility] Urobilinogen, UA 1.0 0.2 - 12 mg/dL [facility] Urinalysis macro (dipstick) panel (U)Ordered By: Amarilis Oden on 06-22-2024 Bilirubin, UA Negative Negative - 4(70) +++ mg/dL [facility] Healthcare Blood, UA Positive Negative - 50 Gabriele/mcL [facility] Healthcare Comment on above: trace-intact Clarity, UA Clear [facility] re Color, UA Yellow [facility] Glucose, UA Negative Negative - 1999(110) ++++ mg/dL [facility] Interpretation and review of laboratory results Abnormal [facility] Ketones, UA Negative Negative - 160(16) ++++ mg/dL [facility] Healthcare Leukocytes, UA Positive Negative - 500+++ Alexsandra/mcL [facility] Healthcare Comment on above: large Nitrite, UA Negative Negative - Positive [facility] pH, UA 6 5 - 9 [facility] Protein, UA Negative Negative - 1999(20) ++++ mg/dL [facility] Healthcare Spec Grav, UA 1.025 1 - 1.03 [facility] care Urobilinogen, UA 0.2 0.2 - 12 mg/dL [facility] Urinalysis macro (dipstick) panel (U)on 06-14-2024 Bilirubin, UA Negative Negative - 4(70) +++ mg/dL [facility] Blood, UA Positive Negative - 50 Gabriele/mcL [facility] Healthcare Comment on above: trace Clarity, UA Clear [facility] re Color, UA Yellow [facility] Glucose, UA Negative Negative - 1999(110) ++++ mg/dL [facility] Interpretation and review of laboratory results Abnormal [facility] Ketones, UA Negative Negative - 160(16) ++++ mg/dL [facility] Leukocytes, UA Trace Negative - 500+++ Alexsandra/mcL [facility] Nitrite, UA Negative Negative - Positive [facility] pH, UA 6.5 5 - 9 [facility] Protein, UA Trace Negative - 1999(20) ++++ mg/dL [facility] Healthcare Spec Grav, UA 1.025 1 - 1.03 [facility] care Urobilinogen, UA 1.0 0.2 - 12 mg/dL [facility] Urinalysis macro (dipstick) panel (U)on 06-07-2024 Bilirubin, UA Negative Negative - 4(70) +++ mg/dL [facility] Blood, UA Negative Negative - 50 Gabriele/mcL [facility] Healthcare Clarity, UA Clear [facility] re Color, UA Yellow [facility] Glucose, UA Negative Negative - 1999(110) ++++ mg/dL [facility] Interpretation and review of laboratory results Abnormal [facility] Ketones, UA Positive Negative - 160(16) ++++ mg/dL [facility] Comment on above: trace Leukocytes, UA Negative Negative - 500+++ Alexsandra/mcL [facility] Nitrite, UA Negative Negative - Positive [facility] pH, UA 7 5 - 9 [facility] Protein, UA Negative Negative - 1999(20) ++++ mg/dL [facility] Spec Grav, UA 1.025 1 - 1.03 [facility] Urobilinogen, UA 0.2 0.2 - 12 mg/dL [facility] Urinalysis macro (dipstick) panel (U)on 05-24-2024 Bilirubin, UA Negative Negative - 4(70) +++ mg/dL [facility] Blood, UA Positive Negative - 50 Gabriele/mcL [facility] Healthcare Comment on above: trace Clarity, UA Clear [facility] re Color, UA Yellow [facility] Glucose, UA Negative Negative - 1999(110) ++++ mg/dL [facility] Interpretation and review of laboratory results Abnormal [facility] Ketones, UA Negative Negative - 160(16) ++++ mg/dL [facility] Leukocytes, UA Positive Negative - 500+++ Alexsandra/mcL [facility] Comment on above: small Nitrite, UA Negative Negative - Positive [facility] pH, UA 7 5 - 9 [facility] Protein, UA Negative Negative - 1999(20) ++++ mg/dL [facility] Spec Grav, UA 1.02 1 - 1.03 [facility] Urobilinogen, UA 0.2 0.2 - 12 mg/dL [facility] Urinalysis macro (dipstick) panel (U)on 05-10-2024 Bilirubin, UA Negative Negative - 4(70) +++ mg/dL [facility] Blood, UA Positive Negative - 50 Gabriele/mcL [facility] Healthcare Comment on above: trace-intact Clarity, UA Clear [facility] re Color, UA Yellow [facility] Glucose, UA Negative Negative - 1999(110) ++++ mg/dL [facility] Interpretation and review of laboratory results Abnormal [facility] Ketones, UA Positive Negative - 160(16) ++++ mg/dL [facility] Comment on above: 15 Leukocytes, UA Negative Negative - 500+++ Alexsandra/mcL [facility] Nitrite, UA Negative Negative - Positive [facility] pH, UA 7 5 - 9 [facility] Protein, UA Negative Negative - 1999(20) ++++ mg/dL [facility] Spec Grav, UA 1.025 1 - 1.03 [facility] Urobilinogen, UA 0.2 0.2 - 12 mg/dL [facility] Urinalysis macro (dipstick) panel (U)on 04-27-2024 Bilirubin, UA Positive Negative - (70) +++ mg/dL [facility] Comment on above: small Blood, UA Positive Negative - 50 Gabriele/mcL [facility] Comment on above: large Clarity, UA Clear [facility] re Color, UA Gay [facility] Glucose, UA Negative Negative - 1999(110) ++++ mg/dL [facility] Interpretation and review of laboratory results Abnormal [facility] Ketones, UA Positive Negative - 160(16) ++++ mg/dL [facility] Comment on above: 40 mg Leukocytes, UA Positive Negative - 500+++ Alexsandra/mcL [facility] Comment on above: small Nitrite, UA Negative Negative - Positive [facility] pH, UA 5.5 5 - 9 [facility] Health[facility] e Protein, UA Positive Negative - 1999(20) ++++ mg/dL [facility] Comment on above: 30 mg Spec Grav, UA 1.030 1 - 1.03 [facility] Urobilinogen, UA 1.0 0.2 - 12 mg/dL [facility] ALL CBC WITH AUTO DIFFon BASOPHILS ABSOLUTE AUTO 0.0 [facility] Basophils/100 WBC (Bld) 0.4 % 0.2 - 2.0 % [facility] Eosinophils/100 WBC (Bld) 0.3 % Low 0.9 - 7.0 % [facility] Erythrocyte distribution width (RBC) [Ratio] 12.6 % 11.0 - 15.0 % [facility] Hematocrit (Bld) [Volume fraction] 32.0 % Low 36.0 - 48.0 % [facility] Hemoglobin (Bld) [Mass/Vol] 10.9 g/dL Low 12.0 - 16.0 g/dL [facility] IMMATURE GRANULOCYTES ABS AUTO 0.03 [facility] Immature granulocytes/100 WBC (Bld) 0.3 % 0.0 - 0.5 % [facility] Interpretation and review of laboratory results Abnormal [facility] LYMPHOCYTES ABSOLUTE AUTO 1.9 [facility] Lymphocytes/100 WBC (Bld) 20.2 % Low 20.5 - 60.0 % [facility] MCH (RBC) [Entitic mass] 30.4 pg 26.7 - 34.0 pg [facility] MCHC (RBC) [Mass/Vol] 34.1 g/dL 29.9 - 35.2 g/dL [facility] MCV (RBC) [Entitic vol] 89.1 fL 81.0 - 99.0 fL [facility] MONOCYTES ABSOLUTE AUTO 0.4 [facility] Monocytes/100 WBC (Bld) 4.3 % 1.7 - 12.0 % [facility] NEUTROPHILS ABSOLUTE AUTO 7.0 High [facility] Neutrophils/100 WBC (Bld) 74.5 % 43.0 - 75.0 % [facility] Platelet mean volume (Bld) [Entitic vol] 11.4 fL 9.5 - 13.5 fL [facility] TBH EO # 0.0 [facility] TB PLT 229 [facility] TB RBC 3.59 Low [facility] TB WBC 9.4 [facility] Urinalysis macro (dipstick) panel (U)on 03-30-2024 Bilirubin, UA Negative Negative - 4(70) +++ mg/dL [facility] Blood, UA Negative Negative - 50 Gabriele/mcL [facility] Clarity, UA Clear [facility] re Color, UA Yellow [facility] e Glucose, UA Negative Negative - 1999(110) ++++ mg/dL [facility] Interpretation and review of laboratory results Abnormal [facility] Ketones, UA Positive Negative - 160(16) ++++ mg/dL [facility] Leukocytes, UA Negative Negative - 500+++ Alexsandra/mcL [facility] Nitrite, UA Negative Negative - Positive [facility] pH, UA 5.5 5 - 9 [facility] Health[facility] Protein, UA Negative Negative - 1999(20) ++++ mg/dL [facility] Spec Grav, UA 1.030 1 - 1.03 [facility] Urobilinogen, UA 0.2 0.2 - 12 mg/dL [facility] AFP, SERUM, OPEN SPINA BIFID Aon 03-16-2024 AFP MOM 1.19 . [facility] [employer] AFP VALUE 75.0 ng/mL . [facility] Health[facility] e COMMENT: Comment . [facility] [employer] Comment on above: Josephine Ortiz , Ph.D., [facility] Director References: Available Upon Request. Multiples Of Median Cutoffs For AFP Elevations Blanca 2.5 Black 2.8 IDD 2.0 Twins 4.5 Abbreviation Definitions IDD - Insulin Dep Diabetes OSBR - Open Spina Bifida Risk For further inquiries contact [facility] at [phone]. This test was developed and its performance characteristics determined by [employer]. It has not been cleared or approved by the Food and Drug Administration. Performed at: [facility] [address], [place] [id number] Envelope Machine Operator: Ginna Hawley [facility], Phone: [phone] GEST. AGE ON COLLECTION DATE 21.6 . weeks [facility] GESTAT. AGE BASED ON LMP . [facility] Comment on above: Recalculations are n ot recommended when gestational dating by LMP and ultrasound are within 10 days. INSULIN DEP DIABETES No . [facility] INTERPRETATION Comment . [facility] Comment on above: Interpretation: Scre en Negative This result is screen negative for OSB. The AFP MoM calculated is based on the gestational age provided. MS-AFP can identify up to 80% of open neural tube defects. Closed neural tube defects and some open defects may not be detected by this test. This test does not screen for Down Syndrome or Trisomy 18. If screening for Down Syndrome or Trisomy 18 is desired, contact [facility] to discuss available options. The [employer] recommends amniocentesis be offered to women age 35 and older. [age] [facility] MULTIPLE GESTATION No . [facility] OSBR RISK 1 [place] [phone] . [facility] [employer] RACE . [facility] [employer] RESULTS Report . [facility] [employer] e TEST RESULTS: Negative . [facility] WEIGHT 171 . lbs [facility] N N LMP [id number] 1 17 N 1 Y 171 N N N N N White/ [facility] Cytology Cervical or vaginal smear or scraping studyon 04-21-2023 [facility] CARDIAC BRAIN ADMITon 023 CK [Catalytic activity/Vol] 102 U/L Normal 26-192 [facility] Comment on above: Performed By: #### C BC #### [facility] [address] [address] [address] Michelle Cali CK.MB [Mass/Vol] 0.74 ng/mL Normal <=3.60 [facility] Comment on above: Performed By: #### C BC #### [facility] [address] [place] [address] Dr. Michelle Cali HSTROP 7.7 pg/mL Normal 4.0-51.3 [facility] Comment on above: Result Comment: CUT- OFF POINTS HAVE BEEN ESTABLISHED BASED ON THE FOURTH UNIVERSAL DEFINITIONS OF MYOCARDIAL INFARCTION. THE UPPER REFERENCE LIMIT (URL) OF TROPONIN, DEFINED THE 99TH PERCENTILE OF cTnI DISTRIBUTION IN A REFERENCE POPULATION, HAS BEEN CONFIRMED THE DECISION THRESHOLD FOR MS DIAGNOSIS. Performed By: #### C BC #### [facility] [address] [place] [address] Dr. Michelle Cali SHAHNAZ 24 ng/mL Normal 9-82 [facility] Comment on above: Performed By: #### C BC #### [facility] [address] [address] [address] Michelle Cali CBC AUTO DIFFon 12-04-2022 BASO # 0.1 103/ul Normal 0.0-0.1 [facility] Comment on above: Performed By: #### C BC #### [facility] [address] [place] [address] Dr. Michelle Cali Basophils/100 WBC (Bld) 0.9 % Normal 0.2-2.0 [facility] Comment on above: Performed By: #### C BC #### [facility] [address] [place] [address] Dr. Michelle Cali EO # 0.1 103/ul Normal 0.0-0.7 [facility] Comment on above: Performed By: #### C BC #### [facility] [address] [place] [address] Dr. Michelle Cali Eosinophils/100 WBC (Bld) 0.6 % Critically low 0.9-7.0 [facility] Comment on above: Performed By: #### C BC #### [facility] [address] [place] [address] Dr. Michelle Cali Erythrocyte distribution width (RBC) [Ratio] 12.3 % Normal 11.0-15.0 [facility] Comment on above: Performed By: #### C BC #### [facility] [address] [place] [address] Dr. Michelle Cali Hematocrit (Bld) [Volume fraction] 40.3 % Normal 36.0-48.0 [facility] Comment on above: Performed By: #### C BC #### [facility] [address] [place] [address] Dr. Michelle Cali Hemoglobin (Bld) [Mass/Vol] 13.2 g/dL Normal 12.0-16.0 [facility] Comment on above: Performed By: #### C BC #### [facility] [address] [place] [address] Dr. Michelle Cali IG # 0.03 10e3/ul Normal 0.00-0.03 [facility] Comment on above: Performed By: #### C BC #### [facility] [address] [place] [address] Dr. Michelle Cali IG % 0.3 % Normal 0.0-0.5 [facility] Comment on above: Performed By: #### C BC #### [facility] [address] [place] [address] Dr. Michelle Cali LYMPH # 4.1 103/ul Critically high 1.2-3.8 [facility] Comment on above: Performed By: #### C BC #### [facility] [address] [place] [address] Dr. Michelle Cali Lymphocytes/100 WBC (Bld) 39.9 % Normal 20.5-60.0 [facility] Comment on above: Performed By: #### C BC #### [facility] [address] [place] [address] Dr. Michelle Cali MANUAL DIFF REQ NO Normal [facility] Comment on above: Performed By: #### C BC #### [facility] [address] [place] [address] Dr. Michelle Cali MCH (RBC) [Entitic mass] 29.8 pg Normal 26.7-34.0 [facility] Comment on above: Performed By: #### C BC #### [facility] [address] [place] [address] Dr. Michelle Cali MCHC (RBC) [Mass/Vol] 32.8 g/dL Normal 29.9-35.2 [facility] Comment on above: Performed By: #### C BC #### [facility] [address] [place] [address] Dr. Michelle Cali MCV (RBC) [Entitic vol] 91.0 fL Normal 81.0-99.0 [facility] Comment on above: Performed By: #### C BC #### [facility] [address] [place] [address] Dr. Michelle Cali MONO # 0.5 103/ul Normal 0.3-0.8 [facility] Comment on above: Performed By: #### C BC #### [facility] [address] [place] [address] Dr. Michelle Cali Monocytes/100 WBC (Bld) 5.2 % Normal 1.7-12.0 [facility] Comment on above: Performed By: #### C BC #### [facility] [address] [place] [address] Dr. Michelle Cali NEUT # 5.4 103/ul Normal 1.4-6.5 [facility] Comment on above: Performed By: #### C BC #### [facility] [address] [place] [address] Dr. Michelle Cali Neutrophils/100 WBC (Bld) 53.1 % Normal 43.0-75.0 [facility] Comment on above: Performed By: #### C BC #### [facility] [address] [address] [address] Michelle Cali Platelet mean volume (Bld) [Entitic vol] 10.6 fL Normal 9.5-13.5 [facility] Comment on above: Performed By: #### C BC #### [facility] [address] [place] [address] Dr. Michelle Cali PLT 310 103/ul Normal 150-450 [facility] Comment on above: Performed By: #### C BC #### [facility] [address] [place] [address] Dr. Michelle Cali RBC 4.43 106/ul Normal 4.20-5.40 [facility] Comment on above: Performed By: #### C BC #### [facility] [address] [place] [address] Dr. Michelle Cali WBC 10.2 103/ul Normal 4.0-11.0 [facility] Comment on above: Performed By: #### C BC #### [facility] [address] [place] [address] Dr. Michelle Cali D-DIMERon 12-04-2022 D-DIMER 0.19 mg/L FEU Normal <=0.59 [facility] Comment on above: Performed By: #### C BC #### [facility] [address] [place] [address] Dr. Michelle Cali D-DIMER COMMENTS SEE BELOW Normal [facility] Comment on above: Result Comment: Incr eases [...] hospitalization. Performed By: #### C BC #### [facility] [address] [place] [address] Dr. Michelle Cali ER URINE PROFILEon 3 Bilirubin Ql (U) Negative Normal NEGATIVE [facility] Comment on above: Performed By: #### P REGU, ERUR #### [facility] [address] [place] [address] Dr. Michelle Cali Clarity (U) CLEAR Normal CLEAR [facility] Comment on above: Performed By: #### P REGU, ERUR #### [facility] [address] [place] [address] Dr. Michelle Cali Color (U) YELLOW Normal YELLOW [facility] Comment on above: Performed By: #### P REGU, ERUR #### [facility] [address] [place] [address] Dr. Michelle FRITZ A micrscopic examination will be performed if indicated. Normal [facility] Comment on above: Performed By: #### P REGU, ERUR #### [facility] [address] [place] [address] Dr. Michelle Cali Glucose Ql (U) Negative Normal NEGATIVE [facility] Comment on above: Performed By: #### P REGU, ERUR #### [facility] [address] [place] [address] Dr. Michelle Cali Hemoglobin Ql (U) Negative Normal NEGATIVE [facility] Comment on above: Performed By: #### P REGU, ERUR #### [facility] [address] [place] [address] Dr. Michelle Cali Ketones Ql (U) Negative Normal NEGATIVE [facility] Comment on above: Performed By: #### P REGU, ERUR #### [facility] [address] [place] [address] Dr. Michelle Cali LEUKOCYTES Negative Normal NEGATIVE [facility] Comment on above: Performed By: #### P REGU, ERUR #### [facility] [address] [place] [address] Dr. Michelle Cali Nitrite Ql (U) Negative Normal NEGATIVE [facility] Comment on above: Performed By: #### P REGU, ERUR #### [facility] [address] [address] [address] Michelle Cali pH (U) 6.0 [pH] Normal 5-9 [facility] Comment on above: Performed By: #### P REGU, ERUR #### [facility] [address] [place] [address] Dr. Michelle Clai SPEC GRAVITY >=1.030 Abnormal 1.005-<=1.025 [facility] Comment on above: Performed By: #### P REGU, ERUR #### [facility] [address] [place] [address] Dr. Michelle Cali UA PROTEIN TRACE Normal NEGATIVE/ TRACE [facility] Comment on above: Performed By: #### P MARIOU, ERUR #### [facility] [address] [place] [address] Dr. Michelle Cali UR MICRO IND NOT INDICATED Normal [facility] Comment on above: Performed By: #### P MARIOU, ERUR #### [facility] [address] [place] [address] Dr. Michelle Cali Urobilinogen Qn (U) 0.2 {Kalyan'U}/dL Normal 0.2 - 1. 0 [facility] Comment on above: Performed By: #### P REGU, ERUR #### [facility] [address] [place] [address] Dr. Michelle Cali URon 12-04-2022 , QUAL Negative Normal NEGATIVE [facility] Comment on above: Performed By: #### P REGU, ERUR #### [facility] [address] [place] [address] Dr. Michelle Cali PROF 14(COMP METB)on 023 Albumin [Mass/Vol] 3.9 g/dL Normal 3.4-5.0 [facility] Comment on above: Performed By: #### C BC #### [facility] [address] [place] [address] Dr. Michelle Cali Albumin/Globulin [Mass ratio] 1.0 {ratio} Normal [facility] Comment on above: Performed By: #### C BC #### [facility] [address] [address] [address] Michelle Cali ALP [Catalytic activity/Vol] 69 U/L Normal 46-116 [facility] Comment on above: Performed By: #### C BC #### [facility] [address] [place] [address] Dr. Michelle Cali ALT [Catalytic activity/Vol] 13 U/L Critically low 14-59 [facility] Comment on above: Performed By: #### C BC #### [facility] [address] [place] [address] Dr. Michelle Cali Anion gap [Moles/Vol] 13.6 mmol/L Normal [facility] Comment on above: Performed By: #### C BC #### [facility] [address] [place] [address] Dr. Michelle Cali AST [Catalytic activity/Vol] 11 U/L Critically low 15-37 [facility] Comment on above: Performed By: #### C BC #### [facility] [address] [place] [address] Dr. Michelle Cali Bilirubin [Mass/Vol] 0.3 mg/dL Normal 0.2-1.0 [facility] Comment on above: Performed By: #### C BC #### [facility] [address] [place] [address] Dr. Michelle Cali Calcium [Mass/Vol] 9.0 mg/dL Normal 8.5-10.1 [facility] Comment on above: Performed By: #### C BC #### [facility] [address] [place] [address] Dr. Michelle Cali Chloride [Moles/Vol] 105 mmol/L Normal 98-107 [facility] Comment on above: Performed By: #### C BC #### [facility] [address] [place] [address] Dr. Michelle Cali CO2 [Moles/Vol] 26.8 mmol/L Normal 21.0-32.0 [facility] Comment on above: Performed By: #### C BC #### [facility] [address] [place] [address] Dr. Michelle Cali Creatinine [Mass/Vol] 0.82 mg/dL Normal 0.55-1.02 [facility] Comment on above: Performed By: #### C BC #### [facility] [address] [address] [address] Michelle Cali EGFR-AF NICARAGUAN >60 Normal >=60 [facility] Comment on above: Performed By: #### C BC #### [facility] [address] [address] [address] Michelle Cali EGFR-NON AF NICARAGUAN >60 Normal >=60 [facility] Comment on above: Performed By: #### C BC #### [facility] [address] [address] [address] Michelle Cali Globulin (S) [Mass/Vol] 3.8 g/dL Normal [facility] Comment on above: Performed By: #### C BC #### [facility] [address] [place] [address] Dr. Michelle Cali Glucose [Mass/Vol] 104 mg/dL Normal 74-106 [facility] Comment on above: Performed By: #### C BC #### [facility] [address] [address] [address] Michelle Cali Potassium [Moles/Vol] 3.4 mmol/L Critically low 3.5-5.1 [facility] Comment on above: Performed By: #### C BC #### [facility] [address] [address] [address] Michelle Cali Protein [Mass/Vol] 7.7 g/dL Normal 6.4-8.2 [facility] Comment on above: Performed By: #### C BC #### [facility] [address] [address] [address] Michelle Cali Sodium [Moles/Vol] 142 mmol/L Normal 136-145 [facility] Comment on above: Performed By: #### C BC #### [facility] [address] [place] [address] Dr. Michelle Cali Urea nitrogen [Mass/Vol] 9.0 mg/dL Normal 7.0-18.0 [facility] Comment on above: Performed By: #### C BC #### [facility] [address] [place] [address] Dr. Michelle Cali Urea nitrogen/Creatinine [Mass ratio] 11.0 mg/mg Normal [facility] Comment on above: Performed By: #### C BC #### [facility] [address] [place] [address] Dr. Michelle Cali TSHon 12-04-2022 TSH 6.358 uIU/mL Critically high 0.358-3.740 [facility] Comment on above: Performed By: #### C BC #### [facility] [address] [place] [address] Dr. Michelle Cali INSULINon 09-19-2022 Insulin 6.8 uIU/mL Normal 2.6-24.9 [facility] Comment on above: Performed By: #### C BC #### [facility] [address] [place] [address] Dr. Michelle Cali CBC AUTO DIFFon 09-18-2022 BASO # 0.1 103/ul Normal 0.0-0.1 [facility] Comment on above: Performed By: #### C BC #### [facility] [address] [place] [address] Dr. Michelle Cali Basophils/100 WBC (Bld) 0.8 % Normal 0.2-2.0 [facility] Comment on above: Performed By: #### C BC #### [facility] [address] [place] [address] Dr. Michelle Cali EO # 0.1 103/ul Normal 0.0-0.7 [facility] Comment on above: Performed By: #### C BC #### [facility] [address] [place] [address] Dr. Michelle Cali Eosinophils/100 WBC (Bld) 0.8 % Critically low 0.9-7.0 [facility] Comment on above: Performed By: #### C BC #### [facility] [address] [place] [address] Dr. Michelle Cali Erythrocyte distribution width (RBC) [Ratio] 12.4 % Normal 11.0-15.0 [facility] Comment on above: Performed By: #### C BC #### [facility] [address] [place] [address] Dr. Michelle Cali Hematocrit (Bld) [Volume fraction] 41.6 % Normal 36.0-48.0 [facility] Comment on above: Performed By: #### C BC #### [facility] [address] [place] [address] Dr. Michelle Cali Hemoglobin (Bld) [Mass/Vol] 14.3 g/dL Normal 12.0-16.0 [facility] Comment on above: Performed By: #### C BC #### [facility] [address] [place] [address] Dr. Michelle Cali IG # 0.03 10e3/ul Normal 0.00-0.03 [facility] Comment on above: Performed By: #### C BC #### [facility] [address] [place] [address] Dr. Michelle Cali IG % 0.3 % Normal 0.0-0.5 [facility] Comment on above: Performed By: #### C BC #### [facility] [address] [place] [address] Dr. Michelle Cali LYMPH # 3.1 103/ul Normal 1.2-3.8 [facility] Comment on above: Performed By: #### C BC #### [facility] [address] [place] [address] Dr. Michelle Cali Lymphocytes/100 WBC (Bld) 32.8 % Normal 20.5-60.0 [facility] Comment on above: Performed By: #### C BC #### [facility] [address] [place] [address] Dr. Michelle Cali MANUAL DIFF REQ NO Normal [facility] Comment on above: Performed By: #### C BC #### [facility] [address] [place] [address] Dr. Michelle Cali MCH (RBC) [Entitic mass] 29.5 pg Normal 26.7-34.0 [facility] Comment on above: Performed By: #### C BC #### [facility] [address] [address] [address] Michelle Cali MCHC (RBC) [Mass/Vol] 34.4 g/dL Normal 29.9-35.2 [facility] Comment on above: Performed By: #### C BC #### [facility] [address] [address] [address] Michelle Cali MCV (RBC) [Entitic vol] 86.0 fL Normal 81.0-99.0 [facility] Comment on above: Performed By: #### C BC #### [facility] [address] [place] [address] Dr. Michelle Cali MONO # 0.5 103/ul Normal 0.3-0.8 [facility] Comment on above: Performed By: #### C BC #### [facility] [address] [place] [address] Dr. Michelle Cali Monocytes/100 WBC (Bld) 5.6 % Normal 1.7-12.0 [facility] Comment on above: Performed By: #### C BC #### [facility] [address] [place] [address] Dr. Michelle Cali NEUT # 5.7 103/ul Normal 1.4-6.5 [facility] Comment on above: Performed By: #### C BC #### [facility] [address] [place] [address] Dr. Michelle Cali Neutrophils/100 WBC (Bld) 59.7 % Normal 43.0-75.0 [facility] Comment on above: Performed By: #### C BC #### [facility] [address] [address] [address] Michelle Cali Platelet mean volume (Bld) [Entitic vol] 10.3 fL Normal 9.5-13.5 [facility] Comment on above: Performed By: #### C BC #### [facility] [address] [address] [address] Michelle Cali PLT 319 103/ul Normal 150-450 [facility] Comment on above: Performed By: #### C BC #### [facility] [address] [place] [address] Dr. Michelle Cali RBC 4.84 106/ul Normal 4.20-5.40 [facility] Comment on above: Performed By: #### C BC #### [facility] [address] [place] [address] Dr. Michelle Cali WBC 9.5 103/ul Normal 4.0-11.0 [facility] Comment on above: Performed By: #### C BC #### [facility] [address] [place] [address] Dr. Michelle Cali FREE THYROXINE INDEX T7on FTI 2.36 Normal 1.30-4.50 [facility] Comment on above: Performed By: #### T SH, CMP, T7, LIPID #### [facility] [address] [place] [address] Dr. Michelle Cali T3U 31.0 % Normal 30.0-39.0 [facility] Comment on above: Performed By: #### T SH, CMP, T7, LIPID #### [facility] [address] [place] [address] Dr. Michelle Cali T4 [Mass/Vol] 7.60 ug/dL Normal 4.80-13.90 [facility] Comment on above: Performed By: #### T SH, CMP, T7, LIPID #### [facility] [address] [place] [address] Dr. Michelle Cali GLYCOHEMOGLOBIN A1Con 2022 ADA RECOMMENDATION SEE BELOW Normal [facility] Comment on above: Result Comment: ADA RECOMMENDED LIMIT 4.0 - 6.0 ADA THERAPEUTIC TARGET < 7.0 ACTION SUGGESTED > 7.0 Performed By: #### C BC #### [facility] [address] [place] [address] Dr. Michelle Cali Glucose [Mass/Vol] 105 mg/dL Normal [facility] Comment on above: Performed By: #### C BC #### [facility] [address] [place] [address] Dr. Michelle Cali HbA1c (Bld) [Mass fraction] 5.3 % Normal 4.5-6.2 [facility] Comment on above: Performed By: #### C BC #### [facility] [address] [place] [address] Dr. Michelle Cali IRONon 09-18-2022 Iron [Mass/Vol] 80.0 ug/dL Normal 50.0-170.0 [facility] Comment on above: Performed By: #### I ABIGAIL #### [facility] [address] [place] [address] Dr. Michelle Cali LIPID PROFILEon 09-18-2022 CHOL-HDL RATIO NORM SEE BELOW Normal [facility] Comment on above: Result Comment: 3.3 - 4.4 LOW RISK 4.4 - 7.1 AVERAGE RISK 7.1 - 11.0 MODERATE RISK >11.0 HIGH RISK Performed By: #### T SH, CMP, T7, LIPID #### [facility] [address] [place] [address] Dr. Michelle Cali Cholesterol [Mass/Vol] 175 mg/dL Normal <=200 [facility] Comment on above: Performed By: #### T SH, CMP, T7, LIPID #### [facility] [address] [place] [address] Dr. Michelle Cali Cholesterol in HDL [Mass/Vol] 72 mg/dL Critically high 40-60 [facility] Comment on above: Performed By: #### T SH, CMP, T7, LIPID #### [facility] [address] [place] [address] Dr. Michelle Cali Cholesterol in LDL [Mass/Vol] 85.8 mg/dL Normal [facility] Comment on above: Performed By: #### T SH, CMP, T7, LIPID #### [facility] [address] [place] [address] Dr. Michelle Cali Cholesterol.total/Ch olesterol in HDL [Mass ratio] 2.4 {ratio} Normal [facility] Comment on above: Performed By: #### T SH, CMP, T7, LIPID #### [facility] [address] [place] [address] Dr. Michelle Cali HDL NORMAL > or = 60 mg/dl - LOW CARDIOVASCULAR RISK <40 mg/dl - HIGH CARDIOVASCULAR RISK Normal [facility] Comment on above: Performed By: #### T SH, CMP, T7, LIPID #### [facility] [address] [address] [address] Michelle Cali LDL CALC NORMAL SEE BELOW Normal [facility] Comment on above: Result Comment: <100 mg/dl OPTIMAL 100 - 129 mg/dl NEAR OR ABOVE OPTIMAL 130 - 159 mg/dl BORDERLINE HIGH 160 - 189 mg/dl HIGH >190 mg/dl VERY HIGH Performed By: #### T SH, CMP, T7, LIPID #### [facility] [address] [address] [address] Michelle Cali Triglyceride [Mass/Vol] 86 mg/dL Normal <=150 [facility] Comment on above: Performed By: #### T SH, CMP, T7, LIPID #### [facility] [address] [address] [address] Michelle Cali VLDL CALC 17.2 mg/dL Normal [facility] Comment on above: Performed By: #### T SH, CMP, T7, LIPID #### [facility] [address] [address] [address] Michelle Cali PROF 14(COMP METB)on 023 Albumin [Mass/Vol] 4.3 g/dL Normal 3.4-5.0 [facility] Comment on above: Performed By: #### T SH, CMP, T7, LIPID #### [facility] [address] [address] [address] Michelle Cali Albumin/Globulin [Mass ratio] 1.0 {ratio} Normal [facility] Comment on above: Performed By: #### T SH, CMP, T7, LIPID #### [facility] [address] [address] [address] Michelle Cali ALP [Catalytic activity/Vol] 65 U/L Normal 46-116 [facility] Comment on above: Performed By: #### T SH, CMP, T7, LIPID #### [facility] [address] [address] [address] Michelle Cali ALT [Catalytic activity/Vol] 17 U/L Normal 14-59 [facility] Comment on above: Performed By: #### T SH, CMP, T7, LIPID #### [facility] [address] [address] [address] Michelle Cali Anion gap [Moles/Vol] 12.2 mmol/L Normal [facility] Comment on above: Performed By: #### T SH, CMP, T7, LIPID #### [facility] [address] [address] [address] Michelle Cali AST [Catalytic activity/Vol] 15 U/L Normal 15-37 [facility] Comment on above: Performed By: #### T SH, CMP, T7, LIPID #### [facility] [address] [place] [address] Dr. Michelle Cali Bilirubin [Mass/Vol] 0.4 mg/dL Normal 0.2-1.0 [facility] Comment on above: Performed By: #### T SH, CMP, T7, LIPID #### [facility] [address] [place] [address] Dr. Michelle Cali Calcium [Mass/Vol] 9.4 mg/dL Normal 8.5-10.1 [facility] Comment on above: Performed By: #### T SH, CMP, T7, LIPID #### [facility] [address] [place] [address] Dr. Michelle Cali Chloride [Moles/Vol] 104 mmol/L Normal 98-107 [facility] Comment on above: Performed By: #### T SH, CMP, T7, LIPID #### [facility] [address] [place] [address] Dr. Michelle Cali CO2 [Moles/Vol] 27.7 mmol/L Normal 21.0-32.0 [facility] Comment on above: Performed By: #### T SH, CMP, T7, LIPID #### [facility] [address] [place] [address] Dr. Michelle Cali Creatinine [Mass/Vol] 0.63 mg/dL Normal 0.55-1.02 [facility] Comment on above: Performed By: #### T SH, CMP, T7, LIPID #### [facility] [address] [address] [address] Michelle Cali EGFR-AF NICARAGUAN >60 Normal >=60 [facility] Comment on above: Performed By: #### T SH, CMP, T7, LIPID #### [facility] [address] [address] [address] Michelle Cali EGFR-NON AF NICARAGUAN >60 Normal >=60 [facility] Comment on above: Performed By: #### T SH, CMP, T7, LIPID #### [facility] [address] [address] [address] Michelle Cali Globulin (S) [Mass/Vol] 4.2 g/dL Normal [facility] Comment on above: Performed By: #### T SH, CMP, T7, LIPID #### [facility] [address] [place] [address] Dr. Michelle Cali Glucose [Mass/Vol] 83 mg/dL Normal 74-106 [facility] Comment on above: Performed By: #### T SH, CMP, T7, LIPID #### [facility] [address] [address] [address] Michelle Cali Potassium [Moles/Vol] 3.9 mmol/L Normal 3.5-5.1 [facility] Comment on above: Performed By: #### T SH, CMP, T7, LIPID #### [facility] [address] [address] [address] Michelle Cali Protein [Mass/Vol] 8.5 g/dL Critically high 6.4-8.2 [facility] Comment on above: Performed By: #### T SH, CMP, T7, LIPID #### [facility] [address] [address] [address] Michelle Cali Sodium [Moles/Vol] 140 mmol/L Normal 136-145 [facility] Comment on above: Performed By: #### T SH, CMP, T7, LIPID #### [facility] [address] [address] [address] Michelle Cali Urea nitrogen [Mass/Vol] 9.0 mg/dL Normal 7.0-18.0 [facility] Comment on above: Performed By: #### T SH, CMP, T7, LIPID #### [facility] [address] [place], [place] [address] Dr. Michelle Cali Urea nitrogen/Creatinine [Mass ratio] 14.3 mg/mg Normal [facility] Comment on above: Performed By: #### T SH, CMP, T7, LIPID #### [facility] [address] [place], [place] [address] Dr. Michelle Cali TSHon 09-18-2022 TSH 1.245 uIU/mL Normal 0.358-3.740 [facility] Comment on above: Performed By: #### T SH, CMP, T7, LIPID #### [facility] [id number] Michelle Cali CT ABD/PELV W CONon [...] JEFFREY BEGUM Date: 2022-07-06 01:26 Normal [facility] CBC AUTO DIFFon 07-05-2022 BASO # 0.1 103/ul Normal 0.0-0.1 [facility] Comment on above: Performed By: #### C BC #### [facility] [address] [place] [address] Dr. Michelle Cali Basophils/100 WBC (Bld) 0.9 % Normal 0.2-2.0 [facility] Comment on above: Performed By: #### C BC #### [facility] [address] [place] [address] Dr. Michelle Cali EO # 0.1 103/ul Normal 0.0-0.7 [facility] Comment on above: Performed By: #### C BC #### [facility] [address] [place] [address] Dr. Michelle Cali Eosinophils/100 WBC (Bld) 1.0 % Normal 0.9-7.0 [facility] Comment on above: Performed By: #### C BC #### [facility] [address] [place] [address] Dr. Michelle Cali Erythrocyte distribution width (RBC) [Ratio] 12.5 % Normal 11.0-15.0 [facility] Comment on above: Performed By: #### C BC #### [facility] [address] [place] [address] Dr. Michelle Cali Hematocrit (Bld) [Volume fraction] 39.6 % Normal 36.0-48.0 [facility] Comment on above: Performed By: #### C BC #### [facility] [address] [place] [address] Dr. Michelle Cali Hemoglobin (Bld) [Mass/Vol] 13.6 g/dL Normal 12.0-16.0 [facility] Comment on above: Performed By: #### C BC #### [facility] [address] [place] [address] Dr. Michelle Cali IG # 0.02 10e3/ul Normal 0.00-0.03 [facility] Comment on above: Performed By: #### C BC #### [facility] [address] [place] [address] Dr. Michelle Cali IG % 0.2 % Normal 0.0-0.5 [facility] [facility] Comment on above: Performed By: #### C BC #### [facility] [address] [place] [address] Dr. Michelle Cali LYMPH # 4.0 103/ul Critically high 1.2-3.8 [facility] Comment on above: Performed By: #### C BC #### [facility] [address] [place] [address] Dr. Michelle Cali Lymphocytes/100 WBC (Bld) 44.0 % Normal 20.5-60.0 [facility] Comment on above: Performed By: #### C BC #### [facility] [address] [place] [address] Dr. Michelle Cali MANUAL DIFF REQ NO Normal [facility] Comment on above: Performed By: #### C BC #### [facility] [address] [place] [address] Dr. Michelle Cali MCH (RBC) [Entitic mass] 29.7 pg Normal 26.7-34.0 [facility] Comment on above: Performed By: #### C BC #### [facility] [address] [place] [address] Dr. Michelle Cali MCHC (RBC) [Mass/Vol] 34.3 g/dL Normal 29.9-35.2 [facility] Comment on above: Performed By: #### C BC #### [facility] [address] [place] [address] Dr. Michelle Cali MCV (RBC) [Entitic vol] 86.5 fL Normal 81.0-99.0 [facility] Comment on above: Performed By: #### C BC #### [facility] [address] [place] [address] Dr. Michelle Cali MONO # 0.6 103/ul Normal 0.3-0.8 [facility] Comment on above: Performed By: #### C BC #### [facility] [address] [address] [address] Michelle Cali Monocytes/100 WBC (Bld) 6.7 % Normal 1.7-12.0 [facility] Comment on above: Performed By: #### C BC #### [facility] [address] [address] [address] Michelle Cali NEUT # 4.2 103/ul Normal 1.4-6.5 [facility] Comment on above: Performed By: #### C BC #### [facility] [address] [place] [address] Dr. Michelle Cali Neutrophils/100 WBC (Bld) 47.2 % Normal 43.0-75.0 [facility] Comment on above: Performed By: #### C BC #### [facility] [address] [place] [address] Dr. Michelle Cali Platelet mean volume (Bld) [Entitic vol] 11.4 fL Normal 9.5-13.5 [facility] Comment on above: Performed By: #### C BC #### [facility] [address] [place] [address] Dr. Michelle Cali PLT 342 103/ul Normal 150-450 [facility] Comment on above: Performed By: #### C BC #### [facility] [address] [place] [address] Dr. Michelle Cali RBC 4.58 106/ul Normal 4.20-5.40 [facility] Comment on above: Performed By: #### C BC #### [facility] [address] [place] [address] Dr. Michelle Cali WBC 9.0 103/ul Normal 4.0-11.0 [facility] Comment on above: Performed By: #### C BC #### [facility] [address] [place] [address] Dr. Michelle Cali PREG HCG QUALon 07-05-2022 , QUAL Negative Normal NEGATIVE [facility] Comment on above: Performed By: #### P REG #### [facility] [address] [place] [address] Dr. Michelle Cali PROF 14(COMP METB)on 022 Albumin [Mass/Vol] 4.4 g/dL Normal 3.4-5.0 [facility] Comment on above: Performed By: #### C BC #### [facility] [address] [place] [address] Dr. Michelle Cali Albumin/Globulin [Mass ratio] 1.1 {ratio} Normal [facility] Comment on above: Performed By: #### C BC #### [facility] [address] [place] [address] Dr. Michelle Cali ALP [Catalytic activity/Vol] 82 U/L Normal 46-116 [facility] Comment on above: Performed By: #### C BC #### [facility] [address] [place] [address] Dr. Michelle Cali ALT [Catalytic activity/Vol] 22 U/L Normal 14-59 [facility] Comment on above: Performed By: #### C BC #### [facility] [address] [place] [address] Dr. Michelle Cali Anion gap [Moles/Vol] 9.3 mmol/L Normal [facility] Comment on above: Performed By: #### C BC #### [facility] [address] [place] [address] Dr. Michelle Cali AST [Catalytic activity/Vol] 17 U/L Normal 15-37 [facility] Comment on above: Performed By: #### C BC #### [facility] [address] [place] [address] Dr. Michelle Cali Bilirubin [Mass/Vol] 0.5 mg/dL Normal 0.2-1.0 [facility] Comment on above: Performed By: #### C BC #### [facility] [address] [place] [address] Dr. Michelle Cali Calcium [Mass/Vol] 9.1 mg/dL Normal 8.5-10.1 [facility] Comment on above: Performed By: #### C BC #### [facility] [address] [address] [address] Michelle Cali Chloride [Moles/Vol] 104 mmol/L Normal 98-107 [facility] Comment on above: Performed By: #### C BC #### [facility] [address] [place] [address] Dr. Michelle Cali CO2 [Moles/Vol] 26.8 mmol/L Normal 21.0-32.0 [facility] Comment on above: Performed By: #### C BC #### [facility] [address] [place] [address] Dr. Michelle Cali Creatinine [Mass/Vol] 0.73 mg/dL Normal 0.55-1.02 [facility] Comment on above: Performed By: #### C BC #### [facility] [address] [place] [address] Dr. Michelle Cali EGFR-AF NICARAGUAN >60 Normal >=60 [facility] Comment on above: Performed By: #### C BC #### [facility] [address] [place] [address] Dr. Michelle Cali EGFR-NON AF NICARAGUAN >60 Normal >=60 [facility] Comment on above: Performed By: #### C BC #### [facility] [address] [address] [address] Michelle Cali Globulin (S) [Mass/Vol] 4.1 g/dL Normal [facility] Comment on above: Performed By: #### C BC #### [facility] [address] [place] [address] Dr. Michelle Cali Glucose [Mass/Vol] 84 mg/dL Normal 74-106 [facility] Comment on above: Performed By: #### C BC #### [facility] [address] [address] [address] Michelle Cali Potassium [Moles/Vol] 3.1 mmol/L Critically low 3.5-5.1 [facility] Comment on above: Performed By: #### C BC #### [facility] [address] [place] [address] Dr. Michelle Cali Protein [Mass/Vol] 8.5 g/dL Critically high 6.4-8.2 [facility] Comment on above: Performed By: #### C BC #### [facility] [address] [address] [address] Michelle Cali Sodium [Moles/Vol] 137 mmol/L Normal 136-145 [facility] Comment on above: Performed By: #### C BC #### [facility] [address] [address] [address] Michelle Cali Urea nitrogen [Mass/Vol] 13.0 mg/dL Normal 7.0-18.0 [facility] Comment on above: Performed By: #### C BC #### [facility] [address] [address] [address] Michelle Cali Urea nitrogen/Creatinine [Mass ratio] 17.8 mg/mg Normal [facility] Comment on above: Performed By: #### C BC #### [facility] [address] [address] [address] Michelle Cali HCG,Urineon 02-07-2021 Beta HCG ( test) Ql (U) Negative Normal [facility] Comment on above: Result Comment: PERF ORMED BY: [place] [address] PATHOLOGIST LEVELER HELPER WENDY TRUONG M.D. Performed By: #### U HCG #### [address] 02-07-2021 L Specimen: [id number] Received: 02/07/21 Status: YANNA Beard Num: [id number] Spec Type: Surgical Subm Dr: Ranjit Coe MD Tissues: A Breast Reduction - Mammoplasty (RIGHT BREAST TISSUE) B Breast Reduction - Mammoplasty (LEFT BREAST TISSUE) Procedures: HE Stain/8, Gross/Micro L4/2 Patient Age/Sex Location Account Attending Physician Latha Cuevas / [place] [id number] Ranjit Coe MD SPEC NUM: [id number] RECD: 02/07/21 STATUS: YANNA BEARD NUM: [id number] YOUNG: 02/07/21- [facility] DR: Ranjit Coe MD ENTERED: 02/07/21 [facility] DR: FAHEEM TYPE: Surgical DEPT: S ENTERED BY: [id number] RECV BY: [id number] ORDERED: HE Stain/8, Gross/Micro L4/2 ORDERED: HE [...] obvious masses or lesions are grossly identified. Senior Java Software Developer sections are submitted in four cassettes labeled [...] tissue. No obvious masses or lesions Specimen: [id number] Received: 02/07/21 Status: YANNA Chirag Num: [id number] Spec Type: Surgical Subm Dr: Ranjit Coe MD Tissues: A Breast Reduction - Mammoplasty (RIGHT BREAST TISSUE) B Breast Reduction - Mammoplasty (LEFT BREAST TISSUE) Procedures: HE Stain/8, Gross/Micro L4/2 Patient: Latha Cuevas [id number] (Continued) Specimen: [id number] Received: 02/07/21 (Continued) Gross Description (Continued) Signed (signature on file) Wendy Truong MD 02/08/21 1713 Specimen: [id number] Received: 02/07/21 Status: YANNA Beard Num: [id number] Spec Type: Surgical Subm Dr: Ranjit Coe MD Tissues: A Breast Reduction - Mammoplasty (RIGHT BREAST TISSUE) B Breast Reduction - Mammoplasty (LEFT BREAST TISSUE) Procedures: [place] Stain/8, Gross/Micro L4/2 Patient: Latha Cuevas [id number] (Continued) Specimen: [id number] Received: 02/07/21 (Continued) Gross Description (Continued) are grossly identified. Senior Java Software Developer sections are submitted in four cassettes labeled B1- B4. (ALMA/DUYEN) Microscopic Description A. Four glass slides with H E stained material have been examined. The microscopic findings support the above pathologic diagnosis. B. Four glass slides with H E stained material have been examined. The microscopic findings support the above pathologic diagnosis. [id number] Specimen: [id number] Received: 02/07/21 Status: YANNA Beard Num: [id number] Spec Type: Surgical Subm Dr: Ranjit Coe MD Tissues: A Breast Reduction - Mammoplasty (RIGHT BREAST TISSUE) B Breast Reduction - Mammoplasty (LEFT BREAST TISSUE) Procedures: HE Stain/8, Gross/Micro L4/2 Patient: Latha Cuevas [id number] (Continued) (more content not included)... [facility] SARS-CoV-2 (COVID-19) RNA LALITO+probe Ql (Unsp spec) Negative Normal Negative [facility] Comment on above: Order Comment: Healt hcare Worker?: N Result Comment: Testing for SARS-CoV-2 by RT-PCR This test was developed and its performance characteristics determined by [employer] and validated at the [facility]. This test has not been FDA [...] is terminated or revoked sooner. PERFORMED BY: [place] [address] PATHOLOGIST LEVELER HELPER WENDY TRUONG M.D. Performed By: #### C OVID 19 [facility] #### [address] Vital Signs Date Time Vital Sign Value Performing Clinician Lianna browne 07-07-2024 10:55-0500 Body mass index (BMI) [Ratio] 33.3 kg/m2 [employer] DO Work Phone: [facility] 07-07-2024 10:55-0500 Body weight 88 kg [employer] DO Work Phone: [facility] 07-07-2024 10:55-0500 Diastolic blood pressure 74 mm[Hg] [employer] Work Phone: [facility] 07-07-2024 10:55-0500 Systolic blood pressure 112 mm[Hg] Roosevelt Mauricio DO Work Phone: [facility] 06-29-2024 17:16-0500 Body mass index (BMI) [Ratio] 32.81 kg/m2 Roosevelt Mauricio DO Work Phone: [facility] 06-29-2024 17:16-0500 Body weight 86.69 kg Roosevelt Mauricio DO Work Phone: [facility] 06-29-2024 17:16-0500 Diastolic blood pressure 72 mm[Hg] Roosevelt Mauricio DO Work Phone: [facility] 06-29-2024 17:16-0500 Systolic blood pressure 110 mm[Hg] Roosevelt Mauricio DO Work Phone: [facility] 06-22-2024 16:27-0500 Body mass index (BMI) [Ratio] 33.03 kg/m2 Roosevelt Mauricio DO Work Phone: [facility] 06-22-2024 16:27-0500 Body weight 87.27 kg Roosevelt Mauricio DO Work Phone: [facility] 06-22-2024 16:27-0500 Diastolic blood pressure 68 mm[Hg] Roosevelt Mauricio DO Work Phone: [facility] 06-22-2024 16:27-0500 Systolic blood pressure 110 mm[Hg] Roosevelt Mauricio DO Work Phone: [facility] 06-14-2024 15:03-0500 Body mass index (BMI) [Ratio] 33.09 kg/m2 Roosevelt Mauricio DO Work Phone: [facility] 06-14-2024 15:03-0500 Body weight 87.45 kg Roosevelt Mauricio DO Work Phone: [facility] 06-14-2024 15:03-0500 Diastolic blood pressure 76 mm[Hg] Roosevelt Mauricio DO Work Phone: [facility] 06-14-2024 15:03-0500 Systolic blood pressure 120 mm[Hg] Roosevelt Mauricio DO Work Phone: [facility] 06-07-2024 15:14-0500 Body mass index (BMI) [Ratio] 32.61 kg/m2 Agata Susana PA Work Phone: [facility] 06-07-2024 15:14-0500 Body weight 86.18 kg Agata [place] PA Work Phone: [facility] 06-07-2024 15:14-0500 Diastolic blood pressure 74 mm[Hg] Agata Susana PA Work Phone: [facility] 06-07-2024 15:14-0500 Systolic blood pressure 116 mm[Hg] Agata Susana PA Work Phone: [facility] 05-24-2024 15:21-0500 Body mass index (BMI) [Ratio] 32.61 kg/m2 Agata Susana PA Work Phone: [facility] 05-24-2024 15:21-0500 Body weight 86.18 kg Agata [place] PA Work Phone: [facility] 05-24-2024 15:21-0500 Diastolic blood pressure 70 mm[Hg] Agata [place] PA Work Phone: [facility] 05-24-2024 15:21-0500 Systolic blood pressure 110 mm[Hg] Agata [place] PA Work Phone: [facility] 05-10-2024 14:52-0400 Body mass index (BMI) [Ratio] 32.27 kg/m2 Roosevelt Mauricio DO Work Phone: [facility] 05-10-2024 14:52-0400 Body weight 85.28 kg Roosevelt Mauricio DO Work Phone: [facility] 05-10-2024 14:52-0400 Diastolic blood pressure 76 mm[Hg] Roosevelt Mauricio DO Work Phone: [facility] 05-10-2024 14:52-0400 Systolic blood pressure 112 mm[Hg] Roosevelt Mauricio DO Work Phone: [facility] 04-27-2024 15:49-0400 Body mass index (BMI) [Ratio] 31.41 kg/m2 Agata Susana PA Work Phone: [facility] 04-27-2024 15:49-0400 Body weight 83.01 kg Agata Susana PA Work Phone: [facility] 04-27-2024 15:49-0400 Diastolic blood pressure 68 mm[Hg] Agata [place] PA Work Phone: [facility] 04-27-2024 15:49-0400 Systolic blood pressure 110 mm[Hg] Agata Susana PA Work Phone: [facility] 03-30-2024 15:49-0400 Body mass index (BMI) [Ratio] 30.4 kg/m2 Agata [place] PA Work Phone: [facility] 03-30-2024 15:49-0400 Body weight 80.34 kg Agata [place] PA Work Phone: [facility] 03-30-2024 15:49-0400 Diastolic blood pressure 60 mm[Hg] Agata Susana PA Work Phone: [facility] 03-30-2024 15:49-0400 Systolic blood pressure 100 mm[Hg] Agata Susana PA Work Phone: [facility] Healthcare Encounters Encounter Date Encounter Type Care Provider Facility Start: 07-07-2024 End: 07-07-2024 Bamboo flowsheet Roosevelt Mauricio DO Work Phone: [facility] Start: 07-07-2024 End: 07-07-2024 Bamboo flowsheet Roosevelt Mauricio DO Work Phone: [facility] Start: 07-07-2024 End: 07-07-2024 ambulatory ROOSEVELT MAURICIO Not Available Start: 07-07-2024 End: 07-07-2024 flow sheet Roosevelt Mauricio DO Work Phone: [facility] Comment on above: 38 weeks gestation o f ; Third trimester Start: 06-29-2024 End: 06-29-2024 flow sheet Roosevelt Mauricio DO Work Phone: [facility] Comment on above: Third trimester preg shay; 37 weeks gestation of Start: 06-29-2024 End: 06-29-2024 ambulatory ROOSEVELT MAURICIO Not Available Start: 06-29-2024 End: 06-29-2024 Bamboo flowsheet Roosevelt Mauricio DO Work Phone: [facility] Start: 06-29-2024 End: 06-29-2024 Bamboo flowsheet Roosevelt Mauricio DO Work Phone: [facility] Start: 06-22-2024 End: 06-22-2024 flow sheet Roosevelt Mauricio DO Work Phone: [facility] Comment on above: 36 weeks gestation o f ; Third trimester Start: 06-22-2024 End: 06-22-2024 ambulatory ROOSEVELT MAURICIO Not Available Start: 06-22-2024 End: 06-22-2024 Bamboo flowsheet Roosevelt [...] Start: 06-07-2024 End: 06-07-2024 flow sheet Agata [place] PA Work Phone: [facility] Comment on above: Third trimester preg shay; 34 weeks gestation of Start: 06-07-2024 End: 06-07-2024 Bamboo flowsheet Agata PRUITT Work Phone: [facility] Start: 06-07-2024 End: 06-07-2024 Bamboo flowsheet Agata PRUITT Work Phone: [facility] Start: 05-24-2024 End: 05-24-2024 ambulatory AGATA MEZA [...] Phone: [facility] Comment on above: 30 weeks gestation o f ; Third trimester Start: 05-10-2024 End: 05-10-2024 ambulatory ROOSEVELT MAURICIO Not Available Start: 05-10-2024 End: 05-10-2024 Bamboo flowsheet Roosevelt Mauricio DO Work Phone: [facility] Start: 05-10-2024 End: 05-10-2024 Bamboo flowsheet Roosevelt Mauricio DO Work Phone: [facility] Start: 04-27-2024 End: 04-27-2024 ambulatory AGATA MEZA Not Available Start: 04-27-2024 End: 04-27-2024 flow sheet Agata PRUITT Work Phone: [facility] Comment on above: Third trimester preg shay; 28 weeks gestation of ; size inconsistent with dates Start: 04-27-2024 End: 04-27-2024 Bamboo flowsheet Agata PRUITT Work Phone: [facility] Start: 04-27-2024 End: 04-27-2024 Bamboo flowsheet Agata PRUITT Work Phone: [facility] Start: 04-08-2024 End: 04-08-2024 Clinisync Result Encounter Roosevelt Mauricio DO Work Phone: [facility] External Department Unsolicited Start: 04-08-2024 End: 04-08-2024 Clinisync Result Encounter Roosevelt Mauricio DO Work Phone: [facility] External Department Unsolicited Start: 03-30-2024 End: 03-30-2024 flow sheet Agata PRUITT Work Phone: [facility] Comment on above: 24 weeks gestation o f ; Diabetes mellitus screening; Gastroesophageal reflux in Start: 03-30-2024 End: 03-30-2024 ambulatory AGATA MEZA Not Available Start: 03-30-2024 End: 03-30-2024 Bamboo flowsheet Agata PRUITT Work Phone: [facility] Start: 03-30-2024 End: 03-30-2024 Bamboo flowsheet Agata PRUITT Work Phone: [facility] Start: 03-12-2024 End: 03-16-2024 Clinisync Result Encounter Agata PRUITT Work Phone: [facility] External Department Unsolicited Start: 03-12-2024 End: 03-16-2024 Clinisync Result Encounter Agata PRUITT Work Phone: [facility] External Department Unsolicited Start: 03-02-2024 End: 03-02-2024 ambulatory ROOSEVELT MAURICIO Not Available Start: 02-10-2024 End: 02-10-2024 ambulatory AGATA SUSANA Not Available Start: 01-13-2024 End: 01-13-2024 ambulatory ROOSEVELT MAURICIO Not Available Start: 12-18-2023 End: 12-18-2023 ambulatory ROOSEVELT MAURICIO Not Available Start: 12-04-2022 End: 12-04-[address] SHANTELL SIMON . Facility:[facility] Start: 09-18-2022 End: 09-19-[address] JESUS TSANG . Facility: Start: 07-05-2022 End: 07-06-[address] JESUS TSANG . Facility:[facility] Start: 05-23-2022 End: 05-23-[address] JESUS TSANG . Facility: Procedures Date Procedure Procedure Detail Performing Clinician Start: 06-29-2024 Urnls dip stick/tabl et rgnt non-auto w/o micrscp Roosevelt Mauricio DO Work Phone: Start: 06-22-2024 Urnls dip stick/tabl et rgnt [...] w/o micrscp Agata PRUITT Work Phone: Start: 04-08-2024 ALL CBC WITH AUTO DIFF Roosevelt Mauricio DO Work Phone: Start: 03-30-2024 Urnls dip stick/tabl et rgnt non-auto w/o micrscp Agata PRUITT Work Phone: Start: 03-12-2024 AFP, SERUM, OPEN SPI NA BIFIDA Agata PRUITT Work Phone: Start: 04-21-2023 Cytp cerv/vag auto t hin layer prep mnl screen Roosevelt Martínez DO Work Phone: Plan of Treatment Date Care Activity Detail Author Start: 07-07-2024 End: 07-07-2024 Patient encounter procedure 07/07/2024 10:20 AM EST Routine [facility] [address] [place] [address] Roosevelt Martínez, DO [address] [place], [place] [id number] [facility] Start: 06-29-2024 End: 06-29-2024 Patient encounter procedure [facility] Comment on above: Arrived Start: 06-22-2024 End: 06-22-2024 Patient encounter procedure [...] PM EST Routine [facility] [address] [facility] [place] [address] Roosevelt Martínez, DO [address] [place], [place] [id number] [facility] Start: 06-07-2024 End: 06-07-2024 Patient encounter procedure 06/07/2024 2:50 PM EST Routine [facility] [address] [place] [address] Agata Meza, PA [address] [place] [address] [facility] Start: 05-24-2024 End: 05-24-2024 Patient encounter procedure 05/24/2024 2:40 PM EST Routine [facility] [address] [id number] Agata Meza, PA [address] [place] [address] [facility] Start: 05-10-2024 End: 05-10-2024 Patient encounter procedure 05/10/2024 2:50 PM EDT Routine [facility] [address] [id number] Roosevelt Martínez DO [address] [place] [address] Arrived [facility] Comment on above: Arrived Start: 05-10-2024 End: 05-10-2024 Professional / ancillary services management 05/10/2024 2:00 PM EDT Ancillary Procedure [facility] [address] [phone] [facility] Start: 04-27-2024 End: 04-27-2024 Patient encounter procedure 04/27/2024 3:40 PM EDT Routine [facility] [address] [phone] Agata Meza, PA [address] [place], [place] [id number] [facility] Start: 04-27-2024 End: 04-27-2025 US for US OB SCAN FOR GROWTH Imaging Routine size inconsistent with dates Expected: 04/27/2024 (Approximate), Expires: 04/27/2025 [facility] Work Phone: Comment on above: Expected: 04/27/2024 (Approximate), Expires: 04/27/2025 Start: 03-30-2024 End: 03-30-2024 Patient encounter procedure [facility] Comment on above: Arrived Start: 03-30-2024 End: 03-30-2025 CBC panel - Blood by Automated count CBC Lab Routine Diabetes mellitus screening Expected: 03/30/2024 (Approximate), Expires: 03/30/2025 [facility] Work Phone: Comment on above: Expected: 03/30/2024 (Approximate), Expires: 03/30/2025 Start: 03-30-2024 End: 03-30-2025 Measurement of glucose 1 hour after glucose challenge for glucose tolerance test Glucose tolerance, 1 hour Lab Routine Diabetes mellitus screening Expected: 03/30/2024 (Approximate), Expires: 03/30/2025 [facility] Comment on above: Expected: 03/30/2024 (Approximate), Expires: 03/30/2025 Payers Date Payer Category Payer Medicaid [id number] 2024 Medicaid [id number] 2018 [employer] [id number] 2018 Unknown BCBS BCBS xxxxxx [id number] 2018-Present [phone] [address] [place] [address] [id number] 2001 Unknown [id number] 2.16.840.1.482156.3.579.2. 593 2001 Unknown [id number] 2.16.840.1.500320.3.579.2. 593 2001 Unknown [id number] 2.16.840.1.760797.3.579.2. 593 2001 Unknown [id number] 2.16.840.1.978104.3.579.2. 593 2001 Unknown [id number] 2.16.840.1.871306.3.579.2. 1258 2001 Unknown [id number] 2.16.840.1.639164.3.579.2. 1258 2001 Unknown [id number] 2.16.840.1.859633.3.579.2. 1258 2001 Unknown [id number] 2.16.840.1.553544.3.579.2. 1258 2001 Unknown [id number] 2.16.840.1.490251.3.579.2. 9 2001 Unknown [id number] 2.16.840.1.192777.3.579.2. 1258 2001 Unknown [id number] 2.16.840.1.140787.3.579.2. 1258 2001 Unknown [id number] 2.16.840.1.272247.3.579.2. 1258 2001 Unknown [id number] 2.16.840.1.073682.3.579.2. 1258 2001 Unknown [id number] 2.16.840.1.181300.3.579.2. 1258 2001 Unknown [id number] 2.16.840.1.406890.3.579.2. 1259 2001 Unknown [id number] 2.16.840.1.766110.3.579.2. 1259 2001 Unknown [id number] 1958 Self-pay 1958 Unknown [id number] Social History Date Type Detail Facility Start: 11-19-2023 Tobacco smoking stat [facility] Never smoked tobacco [facility] Start: 11-19-2023 Tobacco use and exposure Smoke less tobacco non-user [facility] Start: 03-02-2024 End: 03-30-2024 Alcoholic beverage intake Lifetime non-drinker (finding) [facility] Start: 11-19-2023 End: 07-07-2024 [facility] of [facility] Start: 11-19-2023 Tobacco use panel [facility] Start: 04-20-2023 Alcohol Comment Caffeine intake: non e [facility] Start: 10-27-2023 [facility] Start: 2001 Sex assigned at Not on file [facility] Start: 05-10-2024 End: 07-07-2024 Alcoholic beverage intake Current drinker of alcohol (finding) [facility] Clinical Notes 03-30-2024 to 07-07-2024 Amarilis Oden LPN - 07/07/2024 10:20 AM Zechariah Narvaez LPN - 06/29/2024 4:00 PM EDMOND Niño - 06/22/2024 3:50 PM Zechariah Narvaez LPN - 06/14/2024 2:20 PM EST Note Date & Type Note Facility 07-07-2024 History of Presen t illness Narrative Reason [...] (upper airway resistance syndrome) 11/19/2023 Hx of Guillain-[place] syndrome 11/23/2023 History of shingles 11/23/2023 History [...] Eczema Fatigue Gastritis without bleeding 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 OBJECTIVE Objective: Physical Exam Constitutional: Appearance: Normal appearance. She is well-developed. Genitourinary: Vulva normal. Cardiovascular: Rate and Rhythm: Normal rate and [...] nursing note reviewed. Exam conducted with a nutrition coordinator present. Vitals: Estimated body mass index is 33.3 kg/m as calculated from the following: Height as of 04/21/23: 5' 4 . Weight as of this encounter: 194 lb. BP: 112/74 Patient's last menstrual period was 10/13/2023. ASSESSMENT & PLAN ICD-10-CM 1. 38 weeks gestation of Z3A.38 2. Third trimester Z34.93 Patient presents today for a routine obstetrics appointment. Patient is currently 38w2d with a Estimated Date of Delivery: 07/19/24. Patient is currently 2-3cm dilated and signed IOL consent for 07/11/24. Patient to arrive at ER at 11pm on 07/11/24. Patient to return to clinic for post appointment. 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 She is well-developed. Genitourinary: Vulva normal. Cardiovascular: Rate and Rhythm: Normal rate and [...] nursing note reviewed. Exam conducted with a nutrition coordinator present. Vitals: Estimated body mass index is 32.81 kg/m as calculated from the following: Height as of 04/21/23: 5' 4 . Weight as of this encounter: 191 lb 1.9 oz. BP: 110/72 Patient's last menstrual period was 10/13/2023. ASSESSMENT & PLAN ICD-10-CM 1. Third trimester Z34.93 POCT urinalysis dipstick manually resulted 2. 37 weeks gestation of Z3A.37 POCT urinalysis dipstick manually resulted Return OB: Patient presents today for a routine obstetrics appointment. Patient is currently 37w1d . 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 Exam conducted with a nutrition coordinator present. 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 [...] of: EDMOND Osborn documented in this encounter [facility] 05-24-2024 History of Presen t illness Narrative [...] (upper airway resistance syndrome) 11/19/2023 Hx of Guillain-[place] syndrome 11/23/2023 History of shingles 11/23/2023 History [...] Eczema Fatigue Gastritis without bleeding 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 [...] Eczema Fatigue Gastritis without bleeding 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 Exam conducted with a nutrition coordinator present. 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 OBJECTIVE Objective: Physical Exam Constitutional: Appearance: Normal [...] nursing note reviewed. Exam conducted with a nutrition coordinator present. Vitals: Estimated body mass index is 30.4 kg/m as calculated from the following: Height as of 04/21/23: 5' 4 . Weight as of this encounter: 177 lb 1.9 oz. BP: 100/60 Patient's last menstrual period was 10/13/2023. ASSESSMENT & PLAN ICD-10-CM 1. 24 weeks gestation of Z3A.24 POCT urinalysis dipstick manually resulted 2. Diabetes mellitus screening Z13.1 CBC Glucose tolerance, 1 hour 3. Gastroesophageal reflux in O99.619 omeprazole (PriLOSEC) [address] capsule K21.9 Return OB: Patient presents today for a routine obstetrics appointment. Patient is currently 24w1d . Patient states she is doing well but has complaints of being tired due to current . Patient has verbalizes frequent movement. Patient was given orders for her 1 hour glucose and CBC. Patient was also sent script for Indigestion. Orders Placed This Encounter Procedures CBC Glucose tolerance, 1 hour POCT urinalysis dipstick manually resulted Follow Up: Patient is to return to office in 4 week for routine OB appointment. Documented by Aimee Burleson LPN on behalf of: EDMOND Osborn documented in this encounter [facility] Evaluation note Diagnosis Third trimester state, [...] HealthcareEvaluation note* Diagnosis Third trimester state, incidental 37 weeks gestation of [facility] Diagnosis 24 weeks gestation of Diabetes mellitus screening Screening for diabetes mellitus Gastroesophageal reflux in [facility]* Diagnosis 38 weeks gestation of Third trimester state, incidental documented in this encounter [facility] Summary Purpose Family History No Family History Records FoundNo Family History Records FoundNo Family History Records Found Advance Directives No Advanced Directives Records FoundNo Advanced Directives Records FoundNo Advanced Directives Records Found Additional Source Comments INFORMATION SOURCE (unrecogn ized section and content) DATE CREATED AUTHOR 08/11/2021 [facility] DATE CREATED AUTHOR AUTHOR'S ORGANIZ ATION 12/09/2022 [facility] DATE CREATED AUTHOR AUTHOR'S ORGANIZ ATION 07/10/2024 [facility] EPIC Reason for Visit (unrecogniz ed section and content) Reason Comments Routine Visit Care Teams (unrecognized sec tion and content) Hip Hop Dancer Relationship Specialty Start Date End Date Jesus Tsang MD [address] [place] [address] PCP - General Family Medicine 04/21/23 Hip Hop Dancer Relationship Specialty Start Date End Date Jesus Tsang MD [address] [place] [address] PCP - General Family Medicine 04/21/23 Hip Hop Dancer Relationship Specialty Start Date End Date Jesus Tsang MD [address] [place] [facility] [place] [address] PCP - General Family Medicine 04/21/23 Hip Hop Dancer Relationship Specialty Start Date End Date Jesus Tsang MD [address] [facility] [place] [address] PCP - General Family Medicine 04/21/23 Hip Hop Dancer Relationship Specialty Start Date End Date Jesus sTang MD [address] [place] [facility] [place] [address] PCP - General Family Medicine 04/21/23 Hip Hop Dancer Relationship Specialty Start Date End Date Jesus Tsang MD [address] [place] [facility] [place] [address] PCP - General Family Medicine 04/21/23 Hip Hop Dancer Relationship Specialty Start Date End Date Jesus Tsang MD [address] [place] [facility] [place] [address] PCP - General Family Medicine 04/21/23 Hip Hop Dancer Relationship Specialty Start Date End Date Jesus Tsang MD [address] [place] [facility] [place] [address] PCP - General Family Medicine 04/21/23 Hip Hop Dancer Relationship Specialty Start Date End Date Jesus Tsang MD [address] [place] [facility] [place] [address] PCP - General Family Medicine 04/21/23 Hip Hop Dancer Relationship Specialty Start Date End Date Jesus Tsang MD [address] [place] [facility] [place] [address] PCP - General Family Medicine 04/21/23 FOR [...] BE BASED ON THE PRIMARY CLINICAL RECORDS. [facility]. provides no warranty or guarantee of the accuracy or completeness of information in this document.
[2024-07-11 20:58] LABS: Hemoglobin 10.6 g/dL (12.0-16.0); Mean Corpuscular HGB Conc 33.1 g/dL (29.9-35.2); Mean Corpuscular Hemoglobin 28.1 pg (26.7-34.0); Mean Corpuscular Volume 84.9 fL (81.0-99.0); Platelet Count 296 10^3/uL (150-450); Red Blood Count 3.77 10^6/uL (4.20-5.40); Red Cell Distribution Width 13.3 % (11.0-15.0); White Blood Count 13.1 10^3/uL (4.0-11.0)
[2024-07-11 21:02] VITALS: BP 140/94; PULSE 81
[2024-07-11 21:24] LABS: Amphetamine Screen Urine NEGATIVE (NEGATIVE); Barbiturates Screen Urine NEGATIVE (NEGATIVE); Benzodiazepines Screen Urine NEGATIVE (NEGATIVE); Buprenorphine Screen Urine NEGATIVE (NEGATIVE); Cannabinoid Screen Urine NEGATIVE (NEGATIVE); Cocaine Screen Urine NEGATIVE (NEGATIVE); Methadone Screen Urine NEGATIVE (NEGATIVE); Methamphetamines Screen Urine NEGATIVE (NEGATIVE); Opiate Screen Urine NEGATIVE (NEGATIVE); Oxycodone Screen Urine NEGATIVE (NEGATIVE); Phencyclidine Screen Urine NEGATIVE (NEGATIVE); Tricyclic Antidepressant Urine NEGATIVE (NEGATIVE)
[2024-07-11] MEDS: 0.9 % SODIUM CHLORIDE 1,000 ML 125 ML IV (21:25)
[2024-07-11] MEDS: OXYTOCIN/0.9 % SODIUM CHLORIDE 10 UNITS/500 ML PLAST..BAG 6 UNIT IV (21:25)
[2024-07-11 22:00] VITALS: BP 135/74; PULSE 68
[2024-07-11 22:30] VITALS: BP 121/60; PULSE 70
[2024-07-11 22:48] VITALS: TEMP 36.4
[2024-07-11 23:11] VITALS: BP 144/74; PULSE 67
[2024-07-11 23:43] VITALS: BP 140/66; PULSE 77
[2024-07-12] VITALS (100 sets, daily range): BP systolic 89–167; BP diastolic 45–111; PULSE 50–137; TEMP 36.4–36.8
[2024-07-12] MEDS: 0.9 % SODIUM CHLORIDE 1,000 ML 1000 ML IV (01:15)
[2024-07-12] MEDS: ROPIVACAINE HCL/PF 400 MG/200 ML PREMIX 6 MG EPIDURAL (01:49)
[2024-07-12] MEDS: EPHEDRINE SULFATE 50 MG/ML VIAL IV (09:25)
[2024-07-12] MEDS: 0.9 % SODIUM CHLORIDE 1,000 ML 125 ML IV ×2 (09:57→15:52)
[2024-07-12] MEDS: OXYTOCIN/0.9 % SODIUM CHLORIDE 10 UNITS/500 ML PLAST..BAG 48 UNIT IV (11:01)
[2024-07-12] MEDS: OXYTOCIN/0.9 % SODIUM CHLORIDE 20 UNITS/1,000 ML PLAST..BAG 125 UNIT IV (20:04)
[2024-07-12] MEDS: LIDOCAINE HCL 1% 200 MG/20 ML MDV INJ (20:05)
[2024-07-12] MEDS: IBUPROFEN 600 MG TABLET PO (23:05)
[2024-07-13 00:46] VITALS: BP 131/73; PULSE 84
[2024-07-13] MEDS: BENZOCAINE/MENTHOL 85 GRAM SPRAY BOTTLE 1 APPLIC TOPICAL (01:10)
[2024-07-13] MEDS: GLYCERIN/WITCH HAZEL PADS 1 PAD TOPICAL (01:51)
[2024-07-13] MEDS: IBUPROFEN 600 MG TABLET PO (06:00)
[2024-07-13 06:10] VITALS: BP 138/93; PULSE 80
[2024-07-13 06:42] LABS: Hematocrit 34.2 % (36.0-48.0); Hemoglobin 11.2 g/dL (12.0-16.0); Mean Corpuscular HGB Conc 32.7 g/dL (29.9-35.2); Mean Corpuscular Hemoglobin 28.2 pg (26.7-34.0); Mean Corpuscular Volume 86.1 fL (81.0-99.0); Mean Platelet Volume 11.5 fL (9.5-13.5); Platelet Count 302 10^3/uL (150-450); Red Blood Count 3.97 10^6/uL (4.20-5.40); Red Cell Distribution Width 13.5 % (11.0-15.0); White Blood Count 24.5 10^3/uL (4.0-11.0)
[2024-07-13 07:05] LABS: Basophils Abs Manual 0.24 10^3/uL (0.00-0.10); Lymphocytes Absolute Manual 3.18 10^3/uL (1.20-3.80); Monocytes Absolute Manual 0.98 10^3/uL (0.30-0.80); Segmented Neut Absolute Manual 20.09 10^3/uL (1.4-6.5)
--- NOTE | 2024-07-13 08:45 | PM.OBPRCVD ---
Procedure events: Labor Induction Intrapartal events: None Induction method: per pitocin protocol Delivery augmentation: rupture of membranes and pitocin Delivery monitor: external FHT and external uterine Route of delivery: Episiotomy Description: none L&D Laceration Description: perineal - 1st degree Delivery repair: Vicryl Estimated blood loss (mL): 250 Anesthesia type: Epidural Disposition: floor Infant Delivery date: 07/12/24 Gender: female presentation: vertex Placental delivery description: Spontaneous cord description: 3 Vessels Labor State Duration Labor - Stage 3 Duration: 3 minutes Total Length of Latency: 22 hours and 6 minutes
[2024-07-13 13:58] LABS: BOX Test Reference Lab FIRELANDS; BOX Test Sent Out KLEIHAUER BETKE
== END 2024-07-13 07:00 | disposition home or self-care (01) | DRG 807 ==
PROVIDERS: Admitting Provider Obstetrics & Gynecology; PCP Family Medicine; Visit Provider Obstetrics & Gynecology
DX: O70.0 First degree perineal laceration during delivery (principal); Z37.0 Single live birth; Z3A.38 38 weeks gestation of pregnancy
CPT/HCPCS: 36415; 51702; 59050; 59410; 80307; 85007; 85027; 85460; 86850; 86900; 86901; J0665; J2795; J3010

== ENCOUNTER 2024-07-31 19:41 | Emergency (ER) | payer BC, MEDICAID, SELFPAY ==
--- OUTSIDE RECORDS SUMMARY | 2024-07-31 19:47 | XMS_ITS | CCD ---
Author Organization [facility] CliniSyid Care Team Providers Care Test Engine Mechanic Name Role Phone MARKER ., DR STINSON [...] Unavailable Jesus Tsang MD Primary Care Provider [phone] MAURICIO, ROOSEVELT Attending Unavailable SUSANA, AGATA Attending Unavailable MAURICIO, ROOSEVELT Attending Unavailable SUSANA, AGATA Attending Unavailable SUSANA, AGATA Attending Unavailable MAURICIO, ROOSEVELT Attending Unavailable SUSANA, AGATA Attending Unavailable SUSANA, AGATA Attending Unavailable MAURICIO, ROOSEVELT Attending Unavailable MAURICIO, ROOSEVELT Attending Unavailable MAURICIO, ROOSEVELT Attending Unavailable MAURICIO, ROOSEVELT Attending Unavailable Mauricio, Roosevelt Attending Unavailable Mauricio, Roosevelt Admitting Unavailable Jesus Tsang Primary Care Unavailable Mauricio, Roosevelt Attending Unavailable Mauricio, Roosevelt Admitting Unavailable Medications Completed/Discontinued Medications Medication Drug Class(es) [...] system disorders (20 sources) History of Guillain [place] syndrome; Translations: [Personal history of other diseases [...] Test Name Value Interpretation Reference Range Facility ALL CBC WITH AUTO DIFFon Erythrocyte distribution width (RBC) [Ratio] 13.5 % 11.0 - 15.0 % [facility] Hematocrit (Bld) [Volume fraction] 34.2 % Low 36.0 - 48.0 % [facility] Hemoglobin (Bld) [Mass/Vol] 11.2 g/dL Low 12.0 - 16.0 g/dL [facility] Interpretation and review of laboratory results Abnormal [facility] MCH (RBC) [Entitic mass] 28.2 pg 26.7 - 34.0 pg [facility] MCHC (RBC) [Mass/Vol] 32.7 g/dL 29.9 - 35.2 g/dL [facility] MCV (RBC) [Entitic vol] 86.1 fL 81.0 - 99.0 fL [facility] Platelet mean volume (Bld) [Entitic vol] 11.5 fL 9.5 - 13.5 fL [facility] TB PLT 302 [facility] RBC 3.97 Low [facility] WBC 24.5 High [facility]etal[facility] / [facility] 07-13-2024 [facility] Ratio 0.0020 Ratio Normal [facility] Comment on above: Result Comment: PERF ORMED BY: [facility] [place] [address] PATHOLOGIST CHAIN BUILDER LOOM CONTROL DANICA Newman 07-12-2024 L -- ---- Specimen: [id number] Received: 07/14/24 Status: YANNA Beard Num: [id number] Spec Type: Surgical Subm Dr: Roosevelt Martínez Tissues: A Placenta - 3rd Trimester (Greater than 28 weeks) (PLACENTA) Procedures: HE/Scarlett Gross/Samanta L5 ---- Age/ Patient Sex Location Account Attending Physician ---- Latha Cuevas / LABELL [id number] Roosevelt Martínez ---- SPEC NUM: [id number] RECD: 07/14/24 STATUS: YANNA BEARD NUM: [id number] YOUNG: 07/12/24- SUBM DR: Roosevelt Martínez ENTERED: 07/14/[address]: Glenda,Lab SPEC TYPE: Surgical DEPT: DORA ANDERS ENTERED BY: [id number] RECV BY: [id number] ORDERED: /, Gross/Micro L5 ORDERED: , Gross/Micro L5 Pathological Diagnosis Placental removal, spontaneous vaginal delivery: -Mature third-trimester placenta with three-vessel cord, appropriate for gestational age (474 g) -Patchy severe acute deciduitis and focal mild acute chorionitis without acute amnionitis of the membrane, minimal acute funisitis involving 1 cord vein and 1 cord artery, and without villitis -Patchy moderate acute sub-chorionitis and acute chorionitis at surface, including tiny foci of acute amnionitis, and at least 1 focus mild acute vasculitis of the chorionic vessels -Focal mild chronic deciduitis at basal plate, including at least rare admixed plasma cells -Incidental occasional microcalcification at 1 disc edge and above basal plate -No other significant pathological changes except diffuse mild placental / villous congestions in all the disc sections Clinical Information 24-year-old mother with Apgars of 1, 1, 2, 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, B/P 110 Gross Description Part A is received in formalin labeled with the patients name, and date of : Single MEMBRANES: ---- Specimen: [id number] Received: 07/14/24 Status: YESENIADelia Beard Num: [id number] Spec Type: Surgical Subm Dr: Roosevelt Martínez Tissues: A Placenta - 3rd Trimester (Greater than 28 weeks) (PLACENTA) Procedures: AFRICA/Scarlett Gross/Micro L5 ---- Patient: MasonLatha [id number] (Continued) ---- Specimen: [id number] Received: 07/14/24 (Continued) Gross Description (Continued) Signed (signature on file) Alfonso Cali MD 07/18/24 1754 ---- Specimen: [id number] Received: 07/14/24 Status: YANNA Beard Num: [id number] Spec Type: Surgical Subm Dr: Roosevelt Martínez Tissues: A Placenta - 3rd Trimester (Greater than 28 weeks) (PLACENTA) Procedures: Scarlett Gross/Micro L5 ---- Patient: Latha Cuevas [id number] (Continued) ---- Specimen: [id number] Received: 07/14/24-1326 (Continued) Gross Description (Continued) Placenta Sac Rupture (cm from margin): 8 cm Color: Blue-[place]terfield to tannish Other Characteristics: No Insertion Site: Marginal 100% CORD: Appearance: Unremarkable Site of Insertion: Eccentric, 2.5 cm from the margin Length Diameter (cm): 34.5 cm in length by 1.1 cm in diameter with 14 revolutions True Knots: No Number of vessels: 3 GENERAL: Trimmed Weight (grams): 474 g Complete: Yes Size 1 x Size 2 x Size 3 (cm): 15.5 x 15 x 3 cm Accessory Lobe(s): No PLACENTAL DISK: Color of Surface: Blue-[place]terfield to tannish Sub-amniotic Cyst: No Amnion Nodosum: No Subchorionic Fibrin: Yes, up to 0.3 cm in thickness, less than 5% Appearance of Cut Surface: Focal calcifications Maternal floor: Focal calcifications Retroplacental hematoma: No Cassettes: A1 Rolled membrane, two sections of cord A2-A3 Super[employer] sections of placenta (3, , [id number] A) JG Microscopic Description Microscopic examinations are performed supporting the above interpretation CPT Codes 99892 ---- ---- Specimen: [id number] Received: 07/14/24 Status: YANNA Beard Num: [id number] Spec Type: Surgical Subm Dr: Roosevelt Martínez Tissues: A Placenta - 3rd Trimester (Greater (more content not included)... Normal [facility] CBC WITH PLATELET NO DI FFERENTIALon 07-11-2024 Erythrocyte distribution width (RBC) [Ratio] 13.3 % 11.0 - 15.0 % [facility] Hematocrit (Bld) [Volume fraction] 32 % Low 36.0 - 48.0 % [facility] Hemoglobin (Bld) [Mass/Vol] 10.6 g/dL Low 12.0 - 16.0 g/dL [facility] Interpretation and review of laboratory results Abnormal [facility] MCH (RBC) [Entitic mass] 28.1 pg 26.7 - 34.0 pg [facility] MCHC (RBC) [Mass/Vol] 33.1 g/dL 29.9 - 35.2 g/dL [facility] MCV (RBC) [Entitic vol] 84.9 fL 81.0 - 99.0 fL [facility] Platelet mean volume (Bld) [Entitic vol] 12 fL 9.5 - 13.5 fL [facility] TBH PLT 296 [facility] TB RBC 3.77 Low [facility] TB WBC 13.1 High [facility] Urinalysis macro (dipstick) panel (U)on 06-29-2024 Bilirubin, UA Negative Negative - 4(70) +++ mg/dL [facility] Blood, UA Negative Negative - 50 Gabriele/mcL [facility] Clarity, UA Clear [facility] Color, UA Yellow [facility] Glucose, UA Negative Negative - 1999(110) ++++ mg/dL [facility] Interpretation and review of laboratory results Abnormal [facility] Ketones, UA Negative Negative - 160(16) ++++ mg/dL [facility] Leukocytes, UA Negative Negative - 500+++ Alexsandra/mcL [facility] Nitrite, UA Negative Negative - Positive [facility] pH, UA 6.5 5 - 9 [facility] Protein, UA Negative Negative - 1999(20) ++++ mg/dL [facility] Spec Grav, UA 1.02 1 - 1.03 [facility] Urobilinogen, UA 1.0 0.2 - 12 mg/dL [facility] Urinalysis macro (dipstick) panel (U)Ordered By: Amarilis Oden on 06-22-2024 Bilirubin, UA Negative Negative - 4(70) +++ mg/dL [facility] Blood, UA Positive Negative - 50 Gabriele/mcL [facility] Comment on above: trace-intact Clarity, UA Clear [facility] Color, UA Yellow [facility] Glucose, UA Negative Negative - 1999(110) ++++ mg/dL [facility] Interpretation and review of laboratory results Abnormal [facility] Ketones, UA Negative Negative - 160(16) ++++ mg/dL [facility] Leukocytes, UA Positive Negative - 500+++ Alexsandra/mcL [facility] Comment on above: large Nitrite, UA Negative Negative - Positive [facility] pH, UA 6 5 - 9 [facility] Protein, UA Negative Negative - 1999(20) ++++ mg/dL [facility] Spec Grav, UA 1.025 1 - 1.03 [facility] Urobilinogen, UA 0.2 0.2 - 12 mg/dL [facility] Urinalysis macro (dipstick) panel (U)on 06-14-2024 Bilirubin, UA Negative Negative - 4(70) +++ mg/dL [facility] Blood, UA Positive Negative - 50 Gabriele/mcL [facility] Comment on above: trace Clarity, UA Clear [facility] Color, UA Yellow [facility] Glucose, UA Negative Negative - 1999(110) ++++ mg/dL [facility] Interpretation and review of laboratory results Abnormal [facility] Ketones, UA Negative Negative - 160(16) ++++ mg/dL [facility] Leukocytes, UA Trace Negative - 500+++ Alexsandra/mcL [facility] Nitrite, UA Negative Negative - Positive [facility] pH, UA 6.5 5 - 9 [facility] Protein, UA Trace Negative - 1999(20) ++++ mg/dL [facility] Spec Grav, UA 1.025 1 - 1.03 [facility] Urobilinogen, UA 1.0 0.2 - 12 mg/dL [facility] Urinalysis macro (dipstick) panel (U)on 06-07-2024 Bilirubin, UA Negative Negative - 4(70) +++ mg/dL [facility] Blood, UA Negative Negative - 50 Gabriele/mcL [facility] Clarity, UA Clear [facility] Color, UA Yellow [facility] Glucose, UA Negative Negative - 1999(110) ++++ mg/dL [facility] Interpretation and review of laboratory results Abnormal [facility] Ketones, UA Positive Negative - 160(16) ++++ mg/dL [facility] Comment on above: trace Leukocytes, UA Negative Negative - 500+++ Alexsandra/mcL [facility] Nitrite, UA Negative Negative - Positive [facility] pH, UA 7 5 - 9 [facility] Protein, UA Negative Negative - 1999(20) ++++ mg/dL [facility] Spec Grav, UA 1.025 1 - 1.03 [facility] Urobilinogen, UA 0.2 0.2 - 12 mg/dL [facility] Urinalysis macro (dipstick) panel (U)on 05-24-2024 Bilirubin, UA Negative Negative - 4(70) +++ mg/dL [facility] Blood, UA Positive Negative - 50 Gabriele/mcL [facility] Comment on above: trace Clarity, UA Clear [facility] Color, UA Yellow [facility] Glucose, UA Negative Negative - 1999(110) ++++ mg/dL [facility] Interpretation and review of laboratory results Abnormal [facility] Ketones, UA Negative Negative - 160(16) ++++ mg/dL [facility] Leukocytes, UA Positive Negative - 500+++ Alexsandra/mcL [facility] Comment on above: small Nitrite, UA Negative Negative - Positive [facility] pH, UA 7 5 - 9 [facility] Protein, UA Negative Negative - 1999(20) ++++ mg/dL [facility] Spec Grav, UA 1.02 1 - 1.03 [facility] Urobilinogen, UA 0.2 0.2 - 12 mg/dL [facility] Urinalysis macro (dipstick) panel (U)on 05-10-2024 Bilirubin, UA Negative Negative - 4(70) +++ mg/dL [facility] Blood, UA Positive Negative - 50 Gabriele/mcL [facility] Comment on above: trace-intact Clarity, UA Clear [facility] Color, UA Yellow [facility] Glucose, UA Negative Negative - 1999(110) ++++ mg/dL [facility] Interpretation and review of laboratory results Abnormal [facility] Ketones, UA Positive Negative - 160(16) ++++ mg/dL [facility] Comment on above: 15 Leukocytes, UA Negative Negative - 500+++ Alexsandra/mcL [facility] Nitrite, UA Negative Negative - Positive [facility] pH, UA 7 5 - 9 [facility] Protein, UA Negative Negative - 1999(20) ++++ mg/dL [facility] Spec Grav, UA 1.025 1 - 1.03 [facility] Urobilinogen, UA 0.2 0.2 - 12 mg/dL [facility] Urinalysis macro (dipstick) panel (U)on 04-27-2024 Bilirubin, UA Positive Negative - 4(70) +++ mg/dL [facility] Comment on above: small Blood, UA Positive Negative - 50 Gabriele/mcL [facility] Comment on above: large Clarity, UA Clear [facility] Color, UA Gay [facility] Glucose, UA Negative Negative - 1999(110) ++++ mg/dL [facility] Interpretation and review of laboratory results Abnormal [facility] Ketones, UA Positive Negative - 160(16) ++++ mg/dL [facility] Comment on above: 40 mg Leukocytes, UA Positive Negative - 500+++ Alexsandra/mcL [facility] Comment on above: small Nitrite, UA Negative Negative - Positive [facility] pH, UA 5.5 5 - 9 [facility] Protein, UA Positive Negative - 1999(20) ++++ mg/dL [facility] Comment on above: 30 mg Spec Grav, UA 1.030 1 - 1.03 [facility] Urobilinogen, UA 1.0 0.2 - 12 mg/dL [facility] ALL CBC WITH AUTO DIFFon BASOPHILS ABSOLUTE AUTO 0.0 [facility] Basophils/100 WBC (Bld) 0.4 % 0.2 - 2.0 % [facility] Eosinophils/100 WBC (Bld) 0.3 % Low 0.9 - 7.0 % [facility] Erythrocyte distribution width (RBC) [Ratio] 12.6 % 11.0 - 15.0 % [facility] Hematocrit (Bld) [Volume fraction] 32.0 % Low 36.0 - 48.0 % [facility] Hemoglobin (Bld) [Mass/Vol] 10.9 g/dL Low 12.0 - 16.0 g/dL [facility] IMMATURE GRANULOCYTES ABS AUTO 0.03 [facility] Immature granulocytes/100 WBC (Bld) 0.3 % 0.0 - 0.5 % [facility] Interpretation and review of laboratory results Abnormal [facility] LYMPHOCYTES ABSOLUTE AUTO 1.9 [facility] Lymphocytes/100 WBC (Bld) 20.2 % Low 20.5 - 60.0 % [facility] MCH (RBC) [Entitic mass] 30.4 pg 26.7 - 34.0 pg [facility] MCHC (RBC) [Mass/Vol] 34.1 g/dL 29.9 - 35.2 g/dL [facility] MCV (RBC) [Entitic vol] 89.1 fL 81.0 - 99.0 fL [facility] MONOCYTES ABSOLUTE AUTO 0.4 [facility] Monocytes/100 WBC (Bld) 4.3 % 1.7 - 12.0 % [facility] NEUTROPHILS ABSOLUTE AUTO 7.0 High [facility] Neutrophils/100 WBC (Bld) 74.5 % 43.0 - 75.0 % [facility] Platelet mean volume (Bld) [Entitic vol] 11.4 fL 9.5 - 13.5 fL [facility] TBH EO # 0.0 [facility] TBH PLT 229 [facility] TB RBC 3.59 Low [facility] TB WBC 9.4 [facility] Urinalysis macro (dipstick) panel (U)on 03-30-2024 Bilirubin, UA Negative Negative - 4(70) +++ mg/dL [facility] Blood, UA Negative Negative - 50 Gabriele/mcL [facility] Clarity, UA Clear [facility] Color, UA Yellow [facility] Glucose, UA Negative Negative - 1999(110) ++++ mg/dL [facility] Interpretation and review of laboratory results Abnormal [facility] Ketones, UA Positive Negative - 160(16) ++++ mg/dL [facility] Leukocytes, UA Negative Negative - 500+++ Alexsandra/mcL [facility] Nitrite, UA Negative Negative - Positive [facility] pH, UA 5.5 5 - 9 [facility] Protein, UA Negative Negative - 1999(20) ++++ mg/dL [facility] Spec Grav, UA 1.030 1 - 1.03 [facility] Urobilinogen, UA 0.2 0.2 - 12 mg/dL [facility] AFP, SERUM, OPEN SPINA BIFID Aon 03-16-2024 AFP MOM 1.19 . [facility] AFP VALUE 75.0 ng/mL . [facility] COMMENT: Comment . [facility] Comment on above: Josephine Ortiz , Ph.D., [facility] Director References: Available Upon Request. Multiples Of Median Cutoffs For AFP Elevations Blanca 2.5 Black 2.8 IDD 2.0 Twins 4.5 Abbreviation Definitions IDD - Insulin Dep Diabetes OSBR - Open Spina Bifida Risk For further inquiries contact [facility] at [phone]. This test was developed and its performance characteristics determined by [employer]. It has not been cleared or approved by the Food and Drug Administration. Performed at: [facility] [place], [place] [id number] Design Drafter: Ginna Hawley [facility], Phone: [phone] GEST. AGE ON COLLECTION DATE 21.6 . weeks [facility] GESTAT. AGE BASED ON LMP . [facility] Comment on above: Recalculations are n ot recommended when gestational dating by LMP and ultrasound are within 10 days. INSULIN DEP DIABETES No . [facility] INTERPRETATION Comment . [facility] Comment on above: Interpretation: Scre en Negative [...] Customer Services to discuss available options. The [employer] recommends amniocentesis be offered to women age 35 and older. [age] [facility] MULTIPLE GESTATION No . [facility] OSBR RISK 1 IN 6704 . [facility] RACE . [facility] RESULTS Report . [facility] TEST RESULTS: Negative . [facility] WEIGHT 171 . lbs [facility] N N LMP [id number] 1 17 N 1 Y 171 N N N N N White/ [facility] Cytology Cervical or vaginal smear or scraping studyon 04-21-2023 [facility] CARDIAC BRAIN ADMITon 023 CK [Catalytic activity/Vol] 102 U/L Normal 26-192 [facility] Comment on above: Performed By: #### C BC #### [facility] [address] [place] [address] Dr. Michelle Cali CK.MB [Mass/Vol] 0.74 ng/mL Normal <=3.60 [facility] Comment on above: Performed By: #### C BC #### [facility] [address] [place] [address] Dr. Michelle Cali HSTROP 7.7 pg/mL Normal 4.0-51.3 [facility] Comment on above: Result Comment: CUT- OFF POINTS HAVE BEEN ESTABLISHED BASED ON THE FOURTH UNIVERSAL DEFINITIONS OF MYOCARDIAL INFARCTION. THE UPPER REFERENCE LIMIT (URL) OF TROPONIN, DEFINED THE 99TH PERCENTILE OF cTnI DISTRIBUTION IN A REFERENCE POPULATION, HAS BEEN CONFIRMED THE DECISION THRESHOLD FOR AL DIAGNOSIS. Performed By: #### C BC #### [facility] [address] [place] [address] Dr. Michelle Cali SHAHNAZ 24 ng/mL Normal 9-82 [facility] Comment on above: Performed By: #### C BC #### [facility] [address] [place] [address] Dr. Michelle Cali CBC AUTO DIFFon 12-04-2022 BASO # 0.1 103/ul Normal 0.0-0.1 [facility] Comment on above: Performed By: #### C BC #### [facility] [address] [place] [address] Dr. Michelle Cali Basophils/100 WBC (Bld) 0.9 % Normal 0.2-2.0 [facility] Comment on above: Performed By: #### C BC #### [facility] [address] [place] [address] Dr. Michelle Cali EO # 0.1 103/ul Normal 0.0-0.7 [facility] Comment on above: Performed By: #### C BC #### [facility] [address] [place] [address] Dr. Michelle Cali Eosinophils/100 WBC (Bld) 0.6 % Critically low 0.9-7.0 [facility] Comment on above: Performed By: #### C BC #### [facility] [address] [place] [address] Dr. Michelle Cali Erythrocyte distribution width (RBC) [Ratio] 12.3 % Normal 11.0-15.0 [facility] Comment on above: Performed By: #### C BC #### [facility] [address] [place] [address] Dr. Michelle Cali Hematocrit (Bld) [Volume fraction] 40.3 % Normal 36.0-48.0 [facility] Comment on above: Performed By: #### C BC #### [facility] [address] [place] [address] Dr. Michelle Cali Hemoglobin (Bld) [Mass/Vol] 13.2 g/dL Normal 12.0-16.0 [facility] Comment on above: Performed By: #### C BC #### [facility] [address] [place] [address] Dr. Michelle Cali IG # 0.03 10e3/ul Normal 0.00-0.03 [facility] Comment on above: Performed By: #### C BC #### [facility] [address] [place] [address] Dr. Michelle Cali IG % 0.3 % Normal 0.0-0.5 [facility] Comment on above: Performed By: #### C BC #### [facility] [address] [place] [address] Dr. Michelle Cali LYMPH # 4.1 103/ul Critically high 1.2-3.8 The [facility] Comment on above: Performed By: #### C BC #### [facility] [address] [place] [address] Dr. Michelle Cali Lymphocytes/100 WBC (Bld) 39.9 % Normal 20.5-60.0 [facility] Comment on above: Performed By: #### C BC #### [facility] [address] [place] [address] Dr. Michelle Cali MANUAL DIFF REQ NO Normal The [facility] Comment on above: Performed By: #### C BC #### [facility] [address] [place] [address] Dr. Michelle Cali MCH (RBC) [Entitic mass] 29.8 pg Normal 26.7-34.0 [facility] Comment on above: Performed By: #### C BC #### [facility] [address] [place] [address] Dr. Michelle Cali MCHC (RBC) [Mass/Vol] 32.8 g/dL Normal 29.9-35.2 The [facility] Comment on above: Performed By: #### C BC #### [facility] [address] [place] [address] Dr. Michelle Cali MCV (RBC) [Entitic vol] 91.0 fL Normal 81.0-99.0 [facility] Comment on above: Performed By: #### C BC #### [facility] [address] [place] [address] Dr. Michelle Cali MONO # 0.5 103/ul Normal 0.3-0.8 The [facility] Comment on above: Performed By: #### C BC #### [facility] [address] [place] [address] Dr. Michelle Cali Monocytes/100 WBC (Bld) 5.2 % Normal 1.7-12.0 The [facility] Comment on above: Performed By: #### C BC #### [facility] [address] [place] [address] Dr. Michelle Cali NEUT # 5.4 103/ul Normal 1.4-6.5 The [facility] Comment on above: Performed By: #### C BC #### [facility] [address] [place] [address] Dr. Michelle Cali Neutrophils/100 WBC (Bld) 53.1 % Normal 43.0-75.0 [facility] Comment on above: Performed By: #### C BC #### [facility] [address] [place] [address] Dr. Michelle Cali Platelet mean volume (Bld) [Entitic vol] 10.6 fL Normal 9.5-13.5 [facility] Comment on above: Performed By: #### C BC #### [facility] [address] [place] [address] Dr. Michelle Cali PLT 310 103/ul Normal 150-450 The [facility] Comment on above: Performed By: #### C BC #### [facility] [address] [place] [address] Dr. Michelle Cali RBC 4.43 106/ul Normal 4.20-5.40 The [facility] Comment on above: Performed By: #### C BC #### [facility] [address] [place] [address] Dr. Michelle Cali WBC 10.2 103/ul Normal 4.0-11.0 The [facility] Comment on above: Performed By: #### C BC #### [facility] [address] [place] [address] Dr. Michelle Cali D-DIMERon 12-04-2022 D-DIMER 0.19 mg/L FEU Normal <=0.59 The [facility] Comment on above: Performed By: #### C BC #### [facility] [address] [place] [address] Dr. Michelle Cali D-DIMER COMMENTS SEE BELOW Normal The [facility] Comment on above: Result [...] hospitalization. Performed By: #### C BC #### [facility] [address] [place] [address] Dr. Michelle Cali ER URINE PROFILEon 3 Bilirubin Ql (U) Negative Normal NEGATIVE The [facility] Comment on above: Performed By: #### P REGU, ERUR #### [facility] [address] [place] [address] Dr. Michelle Cali Clarity (U) CLEAR Normal CLEAR [facility] Comment on above: Performed By: #### P REGU, ERUR #### [facility] [address] [place] [address] Dr. Michelle Cali Color (U) YELLOW Normal YELLOW [facility] Comment on above: Performed By: #### P REGU, ERUR #### [facility] [address] [place] [address] Dr. Michelle FRITZ A micrscopic examination will be performed if indicated. Normal The [facility] Comment on above: Performed By: #### P REGU, ERUR #### [facility] [address] [place] [address] Dr. Michelle Cali Glucose Ql (U) Negative Normal NEGATIVE The [facility] Comment on above: Performed By: #### P REGU, ERUR #### [facility] [address] [place] [address] Dr. Michelle Cali Hemoglobin Ql (U) Negative Normal NEGATIVE The [facility] Comment on above: Performed By: #### P REGU, ERUR #### [facility] [address] [place] [address] Dr. Michelle Cali Ketones Ql (U) Negative Normal NEGATIVE The [facility] Comment on above: Performed By: #### P REGU, ERUR #### [facility] [address] [place] [address] Dr. Michelle Cali LEUKOCYTES Negative Normal NEGATIVE [facility] Comment on above: Performed By: #### P REGU, ERUR #### [facility] [address] [place] [address] [address] Michelle Cali Nitrite Ql (U) Negative Normal NEGATIVE The [facility] Comment on above: Performed By: #### P REGU, ERUR #### [facility] [address] [place] [address] [address] Michelle Cali pH (U) 6.0 [pH] Normal 5-9 [facility] Comment on above: Performed By: #### P REGU, ERUR #### [facility] [address] [place] [address] [address] Michelle Cali SPEC GRAVITY >=1.030 Abnormal 1.005-<=1.025 The [facility] Comment on above: Performed By: #### P REGU, ERUR #### [facility] [address] [place] [address] Dr. Michelle Cali UA PROTEIN TRACE Normal NEGATIVE/ TRACE The [facility] Comment on above: Performed By: #### P REGU, ERUR #### [facility] [address] [place] [address] [address] Michelle Cali UR MICRO IND NOT INDICATED Normal The [facility] Comment on above: Performed By: #### P REGU, ERUR #### [facility] [address] [place] [address] [address] Michelle Cali Urobilinogen Qn (U) 0.2 {Kalyan'U}/dL Normal 0.2 - 1. 0 The [facility] Comment on above: Performed By: #### P REGU, ERUR #### [facility] [address] [place] [address] [address] Michelle Cali URon 12-04-2022 , QUAL Negative Normal NEGATIVE The [facility] Comment on above: Performed By: #### P REGU, ERUR #### [facility] [address] [place] [address] [address] Michelle Cali PROF 14(COMP METB)on 023 Albumin [Mass/Vol] 3.9 g/dL Normal 3.4-5.0 The [facility] Comment on above: Performed By: #### C BC #### [facility] [address] [place] [address] [address] Michelle Cali Albumin/Globulin [Mass ratio] 1.0 {ratio} Normal [facility] Comment on above: Performed By: #### C BC #### [facility] [address] [place] [address] [address] Michelle Cali ALP [Catalytic activity/Vol] 69 U/L Normal 46-116 [facility] Comment on above: Performed By: #### C BC #### [facility] [address] [place] [address] [address] Michelle Cali ALT [Catalytic activity/Vol] 13 U/L Critically low 14-59 [facility] Comment on above: Performed By: #### C BC #### [facility] [address] [place] [address] Dr. Michelle Cali Anion gap [Moles/Vol] 13.6 mmol/L Normal [facility] Comment on above: Performed By: #### C BC #### [facility] [address] [place] [address] [address] Michelle Cali AST [Catalytic activity/Vol] 11 U/L Critically low 15-37 [facility] Comment on above: Performed By: #### C BC #### [facility] [address] [place] [address] Dr. Michelle Cali Bilirubin [Mass/Vol] 0.3 mg/dL Normal 0.2-1.0 [facility] Comment on above: Performed By: #### C BC #### [facility] [address] [place] [address] Dr. Michelle Cali Calcium [Mass/Vol] 9.0 mg/dL Normal 8.5-10.1 The [facility] Comment on above: Performed By: #### C BC #### [facility] [address] [place] [address] [address] Michelle Cali Chloride [Moles/Vol] 105 mmol/L Normal 98-107 The [facility] Comment on above: Performed By: #### C BC #### [facility] [address] [place] [address] [address] Michelle Cali CO2 [Moles/Vol] 26.8 mmol/L Normal 21.0-32.0 The [facility] Comment on above: Performed By: #### C BC #### [facility] [address] [place] [address] [address] Michelle Cali Creatinine [Mass/Vol] 0.82 mg/dL Normal 0.55-1.02 The [facility] Comment on above: Performed By: #### C BC #### [facility] [address] [place] [address] [address] Michelle Cali EGFR-AF BULGARIAN >60 Normal >=60 The [facility] Comment on above: Performed By: #### C BC #### [facility] [address] [place] [address] Dr. Michelle Cali EGFR-NON AF BULGARIAN >60 Normal >=60 [facility] Comment on above: Performed By: #### C BC #### [facility] [address] [place] [address] Dr. Michelle Cali Globulin (S) [Mass/Vol] 3.8 g/dL Normal [facility] Comment on above: Performed By: #### C BC #### [facility] [address] [place] [address] Dr. Michelle Cali Glucose [Mass/Vol] 104 mg/dL Normal 74-106 The [facility] Comment on above: Performed By: #### C BC #### [facility] [address] [place] [address] Dr. Michelle Cali Potassium [Moles/Vol] 3.4 mmol/L Critically low 3.5-5.1 The [facility] Comment on above: Performed By: #### C BC #### [facility] [address] [place] [address] Dr. Michelle Cali Protein [Mass/Vol] 7.7 g/dL Normal 6.4-8.2 The [facility] Comment on above: Performed By: #### C BC #### [facility] [address] [place] [address] Dr. Michelle Cali Sodium [Moles/Vol] 142 mmol/L Normal 136-145 [facility] Comment on above: Performed By: #### C BC #### [facility] [address] [place] [address] Dr. Michelle Cali Urea nitrogen [Mass/Vol] 9.0 mg/dL Normal 7.0-18.0 [facility] Comment on above: Performed By: #### C BC #### [facility] [address] [place] [address] Dr. Michelle Cali Urea nitrogen/Creatinine [Mass ratio] 11.0 mg/mg Normal [facility] Comment on above: Performed By: #### C BC #### [facility] [address] [place] [address] Dr. Michelle Cali TSHon 12-04-2022 TSH 6.358 uIU/mL Critically high 0.358-3.740 [facility] Comment on above: Performed By: #### C BC #### [facility] [address] [place] [address] Dr. Michelle Cali INSULINon 09-19-2022 Insulin 6.8 uIU/mL Normal 2.6-24.9 [facility] Comment on above: Performed By: #### C BC #### [facility] [address] [place] [address] Dr. Michelle Cali CBC AUTO DIFFon 09-18-2022 BASO # 0.1 103/ul Normal 0.0-0.1 [facility] Comment on above: Performed By: #### C BC #### [facility] [address] [place] [address] Dr. Michelle Cali Basophils/100 WBC (Bld) 0.8 % Normal 0.2-2.0 [facility] Comment on above: Performed By: #### C BC #### [facility] [address] [place] [address] Dr. Michelle Cali EO # 0.1 103/ul Normal 0.0-0.7 [facility] Comment on above: Performed By: #### C BC #### [facility] [address] [place] [address] Dr. Michelle Cali Eosinophils/100 WBC (Bld) 0.8 % Critically low 0.9-7.0 [facility] Comment on above: Performed By: #### C BC #### [facility] [address] [place] [address] Dr. Michelle Cali Erythrocyte distribution width (RBC) [Ratio] 12.4 % Normal 11.0-15.0 [facility] Comment on above: Performed By: #### C BC #### [facility] [address] [place] [address] Dr. Michelle Cali Hematocrit (Bld) [Volume fraction] 41.6 % Normal 36.0-48.0 [facility] Comment on above: Performed By: #### C BC #### [facility] [address] [place] [address] Dr. Michelle Cali Hemoglobin (Bld) [Mass/Vol] 14.3 g/dL Normal 12.0-16.0 [facility] Comment on above: Performed By: #### C BC #### [facility] [address] [place] [address] Dr. Michelle Cali IG # 0.03 10e3/ul Normal 0.00-0.03 [facility] Comment on above: Performed By: #### C BC #### [facility] [address] [place] [address] Dr. Michelle Cali IG % 0.3 % Normal 0.0-0.5 [facility] Comment on above: Performed By: #### C BC #### [facility] [address] [place] [address] Dr. Michelle Cali LYMPH # 3.1 103/ul Normal 1.2-3.8 [facility] Comment on above: Performed By: #### C BC #### [facility] [address] [place] [address] Dr. Michelle Cali Lymphocytes/100 WBC (Bld) 32.8 % Normal 20.5-60.0 [facility] Comment on above: Performed By: #### C BC #### [facility] [address] [place] [address] Dr. Michelle Cali MANUAL DIFF REQ NO Normal The [facility] Comment on above: Performed By: #### C BC #### [facility] [address] [place] [address] Dr. Michelle Cali MCH (RBC) [Entitic mass] 29.5 pg Normal 26.7-34.0 [facility] Comment on above: Performed By: #### C BC #### [facility] [address] [place] [address] Dr. Michelle Cali MCHC (RBC) [Mass/Vol] 34.4 g/dL Normal 29.9-35.2 [facility] Comment on above: Performed By: #### C BC #### [facility] [address] [place] [address] Dr. Michelle Cali MCV (RBC) [Entitic vol] 86.0 fL Normal 81.0-99.0 [facility] Comment on above: Performed By: #### C BC #### [facility] [address] [place] [address] Dr. Michelle Cali MONO # 0.5 103/ul Normal 0.3-0.8 [facility] Comment on above: Performed By: #### C BC #### [facility] [address] [place] [address] Dr. Michelle Cali Monocytes/100 WBC (Bld) 5.6 % Normal 1.7-12.0 [facility] Comment on above: Performed By: #### C BC #### [facility] [address] [place] [address] Dr. Michelle Cali NEUT # 5.7 103/ul Normal 1.4-6.5 [facility] Comment on above: Performed By: #### C BC #### [facility] [address] [place] [address] Dr. Michelle Cali Neutrophils/100 WBC (Bld) 59.7 % Normal 43.0-75.0 [facility] Comment on above: Performed By: #### C BC #### [facility] [address] [place] [address] Dr. Michelle Cali Platelet mean volume (Bld) [Entitic vol] 10.3 fL Normal 9.5-13.5 [facility] Comment on above: Performed By: #### C BC #### [facility] [address] [place] [address] Dr. Michelle Cali PLT 319 103/ul Normal 150-450 [facility] Comment on above: Performed By: #### C BC #### [facility] [address] [place] [address] Dr. Michelle Cali RBC 4.84 106/ul Normal 4.20-5.40 [facility] Comment on above: Performed By: #### C BC #### [facility] [address] [place] [address] Dr. Michelle Cali WBC 9.5 103/ul Normal 4.0-11.0 [facility] Comment on above: Performed By: #### C BC #### [facility] [address] [place] [address] Dr. Michelle Cali FREE THYROXINE INDEX T7on FTI 2.36 Normal 1.30-4.50 [facility] Comment on above: Performed By: #### T SH, CMP, T7, LIPID #### [facility] [address] [place] [address] Dr. Michelle Cali T3U 31.0 % Normal 30.0-39.0 [facility] Comment on above: Performed By: #### T SH, CMP, T7, LIPID #### [facility] [address] [place] [address] Dr. Michelle Cali T4 [Mass/Vol] 7.60 ug/dL Normal 4.80-13.90 [facility] Comment on above: Performed By: #### T SH, CMP, T7, LIPID #### [facility] [address] [place] [address] Dr. Michelle Cali GLYCOHEMOGLOBIN A1Con 2022 ADA RECOMMENDATION SEE BELOW Normal [facility] Comment on above: Result Comment: ADA RECOMMENDED LIMIT 4.0 - 6.0 ADA THERAPEUTIC TARGET < 7.0 ACTION SUGGESTED > 7.0 Performed By: #### C BC #### [facility] [address] [address] [address] Michelle Cali Glucose [Mass/Vol] 105 mg/dL Normal [place] Comment on above: Performed By: #### C BC #### [facility] [address] [address] [address] Michelle Cali HbA1c (Bld) [Mass fraction] 5.3 % Normal 4.5-6.2 [facility] Comment on above: Performed By: #### C BC #### [facility] [address] [place] [address] Dr. Michelle Cali IRONon 09-18-2022 Iron [Mass/Vol] 80.0 ug/dL Normal 50.0-170.0 [facility] Comment on above: Performed By: #### I ABIGAIL #### [facility] [address] [place] [address] Dr. Michelle Cali LIPID PROFILEon 09-18-2022 CHOL-HDL RATIO NORM SEE BELOW Normal [facility] Comment on above: Result Comment: 3.3 - 4.4 LOW RISK 4.4 - 7.1 AVERAGE RISK 7.1 - 11.0 MODERATE RISK >11.0 HIGH RISK Performed By: #### T SH, CMP, T7, LIPID #### [facility] [address] [place] [address] Dr. Michelle Cali Cholesterol [Mass/Vol] 175 mg/dL Normal <=200 [facility] Comment on above: Performed By: #### T SH, CMP, T7, LIPID #### [facility] [address] [place] [address] Dr. Michelle Cali Cholesterol in HDL [Mass/Vol] 72 mg/dL Critically high 40-60 [facility] Comment on above: Performed By: #### T SH, CMP, T7, LIPID #### [facility] [address] [place] [address] Dr. Michelle Cali Cholesterol in LDL [Mass/Vol] 85.8 mg/dL Normal [facility] Comment on above: Performed By: #### T SH, CMP, T7, LIPID #### [facility] [address] [address] [address] Michelle aCli Cholesterol.total/Ch olesterol in HDL [Mass ratio] 2.4 {ratio} Normal [facility] Comment on above: Performed By: #### T SH, CMP, T7, LIPID #### [facility] [address] [address] [address] Michelle Cali HDL NORMAL > or = 60 mg/dl - LO W CARDIOVASCULAR RISK <40 mg/dl - HIGH CARDIOVASCULAR RISK Normal [facility] Comment on above: Performed By: #### T SH, CMP, T7, LIPID #### [facility] [address] [address] [address] Michelle Cali LDL CALC NORMAL SEE BELOW Normal [facility] Comment on above: Result Comment: <100 mg/dl OPTIMAL 100 - 129 mg/dl NEAR OR ABOVE OPTIMAL 130 - 159 mg/dl BORDERLINE HIGH 160 - 189 mg/dl HIGH >190 mg/dl VERY HIGH Performed By: #### T SH, CMP, T7, LIPID #### [facility] [address] [address] [address] Michelle Cali Triglyceride [Mass/Vol] 86 mg/dL Normal <=150 [facility] Comment on above: Performed By: #### T SH, CMP, T7, LIPID #### [facility] [address] [place] [address] Dr. Michelle Cali VLDL CALC 17.2 mg/dL Normal [facility] Comment on above: Performed By: #### T SH, CMP, T7, LIPID #### [facility] [address] [address] [address] Michelle Cali PROF 14(COMP METB)on 023 Albumin [Mass/Vol] 4.3 g/dL Normal 3.4-5.0 [place] Comment on above: Performed By: #### T SH, CMP, T7, LIPID #### [facility] [address] [place] [address] Dr. Michelle Cali Albumin/Globulin [Mass ratio] 1.0 {ratio} Normal [facility] Comment on above: Performed By: #### T SH, CMP, T7, LIPID #### [facility] [address] [address] [address] Michelle Cali ALP [Catalytic activity/Vol] 65 U/L Normal 46-116 [facility] Comment on above: Performed By: #### T SH, CMP, T7, LIPID #### [facility] [address] [address] [address] Michelle Cali ALT [Catalytic activity/Vol] 17 U/L Normal 14-59 [facility] Comment on above: Performed By: #### T SH, CMP, T7, LIPID #### [facility] [address] [address] [address] Michelle Cali Anion gap [Moles/Vol] 12.2 mmol/L Normal [facility] Comment on above: Performed By: #### T SH, CMP, T7, LIPID #### [facility] [address] [place] [address] Dr. Michelle Cali AST [Catalytic activity/Vol] 15 U/L Normal 15-37 [facility] Comment on above: Performed By: #### T SH, CMP, T7, LIPID #### [facility] [address] [address] [address] Michelle Cali Bilirubin [Mass/Vol] 0.4 mg/dL Normal 0.2-1.0 [facility] Comment on above: Performed By: #### T SH, CMP, T7, LIPID #### [facility] [address] [address] [address] Michelle Cali Calcium [Mass/Vol] 9.4 mg/dL Normal 8.5-10.1 [place] Comment on above: Performed By: #### T SH, CMP, T7, LIPID #### [facility] [address] [address] [address] Michelle Cali Chloride [Moles/Vol] 104 mmol/L Normal 98-107 [facility] Comment on above: Performed By: #### T SH, CMP, T7, LIPID #### [facility] [address] [address] [address] Michelle Cali CO2 [Moles/Vol] 27.7 mmol/L Normal 21.0-32.0 [facility] Comment on above: Performed By: #### T SH, CMP, T7, LIPID #### [facility] [address] [address] [address] Michelle Cali Creatinine [Mass/Vol] 0.63 mg/dL Normal 0.55-1.02 [facility] Comment on above: Performed By: #### T SH, CMP, T7, LIPID #### [facility] [address] [place] [address] Dr. Michelle Cali EGFR-AF BULGARIAN >60 Normal >=60 [facility] Comment on above: Performed By: #### T SH, CMP, T7, LIPID #### [facility] [address] [place] [address] Dr. Michelle Cali EGFR-NON AF BULGARIAN >60 Normal >=60 [facility] Comment on above: Performed By: #### T SH, CMP, T7, LIPID #### [facility] [address] [place] [address] Dr. Michelle Cali Globulin (S) [Mass/Vol] 4.2 g/dL Normal [facility] Comment on above: Performed By: #### T SH, CMP, T7, LIPID #### [facility] [address] [place] [address] Dr. Michelle Cali Glucose [Mass/Vol] 83 mg/dL Normal 74-106 [place] Comment on above: Performed By: #### T SH, CMP, T7, LIPID #### [facility] [address] [place] [address] Dr. Michelle Cali Potassium [Moles/Vol] 3.9 mmol/L Normal 3.5-5.1 [facility] Comment on above: Performed By: #### T SH, CMP, T7, LIPID #### [facility] [address] [place] [address] Dr. Michelle Cali Protein [Mass/Vol] 8.5 g/dL Critically high 6.4-8.2 [facility] Comment on above: Performed By: #### T SH, CMP, T7, LIPID #### [facility] [address] [place] [address] Dr. Michelle Cali Sodium [Moles/Vol] 140 mmol/L Normal 136-145 [place] Comment on above: Performed By: #### T SH, CMP, T7, LIPID #### [facility] [address] [address] [address] Michelle Cali Urea nitrogen [Mass/Vol] 9.0 mg/dL Normal 7.0-18.0 [facility] Comment on above: Performed By: #### T SH, CMP, T7, LIPID #### [facility] [address] [address] [address] Michelle Cali Urea nitrogen/Creatinine [Mass ratio] 14.3 mg/mg Normal [facility] Comment on above: Performed By: #### T SH, CMP, T7, LIPID #### [facility] [address] [address] [address] Michelle Cali TSHon 09-18-2022 TSH 1.245 uIU/mL Normal 0.358-3.740 [facility] Comment on above: Performed By: #### T SH, CMP, T7, LIPID #### [facility] [address] ABD/PELV W CONon [...] within normal limits. Lymph Nodes: No lymphadenopathy. Mesentery/peritoneum: No free fluid or free air. Retroperitoneum: [...] JEFFREY BEGUM Date: 2022-07-06 01:26 Normal [facility] CBC AUTO DIFFon 07-05-2022 BASO # 0.1 103/ul Normal 0.0-0.1 [facility] Comment on above: Performed By: #### C BC #### [facility] [address] [address] [address] Michelle Cali Basophils/100 WBC (Bld) 0.9 % Normal 0.2-2.0 [facility] Comment on above: Performed By: #### C BC #### [facility] [address] [place] [address] Dr. Michelle Cali EO # 0.1 103/ul Normal 0.0-0.7 [facility] Comment on above: Performed By: #### C BC #### [facility] [address] [address] [address] Michelle Cali Eosinophils/100 WBC (Bld) 1.0 % Normal 0.9-7.0 [facility] Comment on above: Performed By: #### C BC #### [facility] [address] [address] [address] Michelle Cali Erythrocyte distribution width (RBC) [Ratio] 12.5 % Normal 11.0-15.0 [facility] Comment on above: Performed By: #### C BC #### [facility] [address] [address] [address] Michelle Cali Hematocrit (Bld) [Volume fraction] 39.6 % Normal 36.0-48.0 [facility] Comment on above: Performed By: #### C BC #### [facility] [address] [place] [address] Dr. Michelle Cali Hemoglobin (Bld) [Mass/Vol] 13.6 g/dL Normal 12.0-16.0 [facility] Comment on above: Performed By: #### C BC #### [facility] [address] [place] [address] Dr. Michelle Cali IG # 0.02 10e3/ul Normal 0.00-0.03 [facility] Comment on above: Performed By: #### C BC #### [facility] [address] [place] [address] Dr. Michelle Cali IG % 0.2 % Normal 0.0-0.5 [facility] Comment on above: Performed By: #### C BC #### [facility] [address] [place] [address] Dr. Michelle Cali LYMPH # 4.0 103/ul Critically high 1.2-3.8 [facility] Comment on above: Performed By: #### C BC #### [facility] [address] [place] [address] Dr. Michelle Cali Lymphocytes/100 WBC (Bld) 44.0 % Normal 20.5-60.0 [facility] Comment on above: Performed By: #### C BC #### [facility] [address] [place] [address] Dr. Michelle Cali MANUAL DIFF REQ NO Normal [facility] Comment on above: Performed By: #### C BC #### [facility] [address] [place] [address] Dr. Michelle Cali MCH (RBC) [Entitic mass] 29.7 pg Normal 26.7-34.0 [facility] Comment on above: Performed By: #### C BC #### [facility] [address] [place] [address] Dr. Michelle Cali MCHC (RBC) [Mass/Vol] 34.3 g/dL Normal 29.9-35.2 [facility] Comment on above: Performed By: #### C BC #### [facility] [address] [place] [address] Dr. Michelle Cali MCV (RBC) [Entitic vol] 86.5 fL Normal 81.0-99.0 [facility] Comment on above: Performed By: #### C BC #### [facility] [address] [place] [address] Dr. Michelle Cali MONO # 0.6 103/ul Normal 0.3-0.8 [facility] Comment on above: Performed By: #### C BC #### [facility] [address] [place] [address] Dr. Michelle Cali Monocytes/100 WBC (Bld) 6.7 % Normal 1.7-12.0 [facility] Comment on above: Performed By: #### C BC #### [facility] [address] [place] [address] Dr. Michelle Cali NEUT # 4.2 103/ul Normal 1.4-6.5 [facility] Comment on above: Performed By: #### C BC #### [facility] [address] [place] [address] Dr. Michelle Cali Neutrophils/100 WBC (Bld) 47.2 % Normal 43.0-75.0 [facility] Comment on above: Performed By: #### C BC #### [facility] [address] [place] [address] Dr. Michelle Cali Platelet mean volume (Bld) [Entitic vol] 11.4 fL Normal 9.5-13.5 [facility] Comment on above: Performed By: #### C BC #### [facility] [address] [place] [address] Dr. Michelle Cali PLT 342 103/ul Normal 150-450 [facility] Comment on above: Performed By: #### C BC #### [facility] [address] [place] [address] Dr. Michelle Cali RBC 4.58 106/ul Normal 4.20-5.40 [facility] Comment on above: Performed By: #### C BC #### [facility] [address] [place] [address] Dr. Michelle Cali WBC 9.0 103/ul Normal 4.0-11.0 [facility] Comment on above: Performed By: #### C BC #### [facility] [address] [place] [address] Dr. Michelle Cali PREG HCG QUALon 07-05-2022 , QUAL Negative Normal NEGATIVE [facility] Comment on above: Performed By: #### P REG #### [facility] [address] [address] [address] Michelle Cali PROF 14(COMP METB)on 022 Albumin [Mass/Vol] 4.4 g/dL Normal 3.4-5.0 [place] Comment on above: Performed By: #### C BC #### [facility] [address] [place] [address] Dr. Michelle Cali Albumin/Globulin [Mass ratio] 1.1 {ratio} Normal [facility] Comment on above: Performed By: #### C BC #### [facility] [address] [place] [address] Dr. Michelle Cali ALP [Catalytic activity/Vol] 82 U/L Normal 46-116 [facility] Comment on above: Performed By: #### C BC #### [facility] [address] [place] [address] Dr. Michelle Cali ALT [Catalytic activity/Vol] 22 U/L Normal 14-59 [facility] Comment on above: Performed By: #### C BC #### [facility] [address] [place] [address] Dr. Michelle Cali Anion gap [Moles/Vol] 9.3 mmol/L Normal [facility] Comment on above: Performed By: #### C BC #### [facility] [address] [place] [address] Dr. Michelle Cali AST [Catalytic activity/Vol] 17 U/L Normal 15-37 [facility] Comment on above: Performed By: #### C BC #### [facility] [address] [place] [address] Dr. Michelle Cali Bilirubin [Mass/Vol] 0.5 mg/dL Normal 0.2-1.0 [facility] Comment on above: Performed By: #### C BC #### [facility] [address] [address] [address] Michelle Cali Calcium [Mass/Vol] 9.1 mg/dL Normal 8.5-10.1 [facility] Comment on above: Performed By: #### C BC #### [facility] [address] [address] [address] Michelle Cali Chloride [Moles/Vol] 104 mmol/L Normal 98-107 [facility] Comment on above: Performed By: #### C BC #### [facility] [address] [address] [address] Michelle Cali CO2 [Moles/Vol] 26.8 mmol/L Normal 21.0-32.0 [facility] Comment on above: Performed By: #### C BC #### [facility] [address] [place] [address] Dr. Michelle Cali Creatinine [Mass/Vol] 0.73 mg/dL Normal 0.55-1.02 [facility] Comment on above: Performed By: #### C BC #### [facility] [address] [address] [address] Michelle Cali EGFR-AF BULGARIAN >60 Normal >=60 [facility] Comment on above: Performed By: #### C BC #### [facility] [address] [place] [address] Dr. Michelle Cali EGFR-NON AF BULGARIAN >60 Normal >=60 [facility] Comment on above: Performed By: #### C BC #### [facility] [address] [place] [address] Dr. Michelle Cali Globulin (S) [Mass/Vol] 4.1 g/dL Normal [facility] Comment on above: Performed By: #### C BC #### [facility] [address] [place] [address] Dr. Michelle Cali Glucose [Mass/Vol] 84 mg/dL Normal 74-106 [facility] Comment on above: Performed By: #### C BC #### [facility] [address] [place] [address] Dr. Michelle Cali Potassium [Moles/Vol] 3.1 mmol/L Critically low 3.5-5.1 [facility] Comment on above: Performed By: #### C BC #### [facility] [address] [address] [address] Michelle Cali Protein [Mass/Vol] 8.5 g/dL Critically high 6.4-8.2 [facility] Comment on above: Performed By: #### C BC #### [facility] [address] [address] [address] Michelle Cali Sodium [Moles/Vol] 137 mmol/L Normal 136-145 [place] Comment on above: Performed By: #### C BC #### [facility] [address] [address] [address] Michelle Cali Urea nitrogen [Mass/Vol] 13.0 mg/dL Normal 7.0-18.0 [facility] Comment on above: Performed By: #### C BC #### [facility] [address] [address] [address] Michelle Cali Urea nitrogen/Creatinine [Mass ratio] 17.8 mg/mg Normal [facility] Comment on above: Performed By: #### C BC #### [facility] [address] [address] [address] Michelle Cali Vital Signs Date Time Vital Sign Value Performing Clinician Lianna browne 07-07-2024 10:55-0500 Body mass index (BMI) [Ratio] 33.3 kg/m2 [employer] Work Phone: [facility] 07-07-2024 10:55-0500 Body weight 88 kg [employer] Work Phone: [facility] 07-07-2024 10:55-0500 Diastolic blood pressure 74 mm[Hg] [employer] Work Phone: [facility] 07-07-2024 10:55-0500 Systolic blood pressure 112 mm[Hg] [employer] Work Phone: [facility] 06-29-2024 17:16-0500 Body mass index (BMI) [Ratio] 32.81 kg/m2 Roosevelt Mauricio DO Work Phone: [facility] 06-29-2024 17:16-0500 Body weight 86.69 kg Roosevelt Mauricio DO Work Phone: [facility] 06-29-2024 17:16-0500 Diastolic blood pressure 72 mm[Hg] Roosevelt Mauricio DO Work Phone: [facility] 06-29-2024 17:16-0500 Systolic blood pressure 110 mm[Hg] Roosevelt Mauricio DO Work Phone: [facility] 06-22-2024 16:27-0500 Body mass index (BMI) [Ratio] 33.03 kg/m2 Roosevelt Mauricio DO Work Phone: [facility] 06-22-2024 16:27-0500 Body weight 87.27 kg Roosevelt Mauricio DO Work Phone: [facility] 06-22-2024 16:27-0500 Diastolic blood pressure 68 mm[Hg] Roosevelt Mauricio DO Work Phone: [facility] 06-22-2024 16:27-0500 Systolic blood pressure 110 mm[Hg] Roosevelt Mauricio DO Work Phone: [facility] 06-14-2024 15:03-0500 Body mass index (BMI) [Ratio] 33.09 kg/m2 Roosevelt Mauricio DO Work Phone: [facility] 06-14-2024 15:03-0500 Body weight 87.45 kg Roosevelt Mauricio DO Work Phone: [facility] 06-14-2024 15:03-0500 Diastolic blood pressure 76 mm[Hg] Roosevelt Mauricio DO Work Phone: [facility] 06-14-2024 15:03-0500 Systolic blood pressure 120 mm[Hg] Roosevelt Mauricio DO Work Phone: [facility] 06-07-2024 15:14-0500 Body mass index (BMI) [Ratio] 32.61 kg/m2 Agata Cleveland PA Work Phone: [facility] 06-07-2024 15:14-0500 Body weight 86.18 kg Agata Cleveland PA Work Phone: [facility] 06-07-2024 15:14-0500 Diastolic blood pressure 74 mm[Hg] Agata Cleveland PA Work Phone: [facility] 06-07-2024 15:14-0500 Systolic blood pressure 116 mm[Hg] Agata Cleveland PA Work Phone: [facility] 05-24-2024 15:21-0500 Body mass index (BMI) [Ratio] 32.61 kg/m2 Agata Cleveland PA Work Phone: [facility] 05-24-2024 15:21-0500 Body weight 86.18 kg Agata Cleveland PA Work Phone: [facility] 05-24-2024 15:21-0500 Diastolic blood pressure 70 mm[Hg] Agata Susana PA Work Phone: [facility] 05-24-2024 15:21-0500 Systolic blood pressure 110 mm[Hg] Agata Cleveland PA Work Phone: [facility] 05-10-2024 14:52-0400 Body mass index (BMI) [Ratio] 32.27 kg/m2 Roosevelt Mauricio DO Work Phone: [facility] 05-10-2024 14:52-0400 Body weight 85.28 kg Roosevelt Mauricio DO Work Phone: [facility] 05-10-2024 14:52-0400 Diastolic blood pressure 76 mm[Hg] Roosevelt Mauricio DO Work Phone: [facility] 05-10-2024 14:52-0400 Systolic blood pressure 112 mm[Hg] Roosevelt Mauricio DO Work Phone: [facility] 04-27-2024 15:49-0400 Body mass index (BMI) [Ratio] 31.41 kg/m2 Agata Cleveland PA Work Phone: [facility] 04-27-2024 15:49-0400 Body weight 83.01 kg Agata Susana PA Work Phone: [facility] 04-27-2024 15:49-0400 Diastolic blood pressure 68 mm[Hg] Agata Susana PA Work Phone: [facility] 04-27-2024 15:49-0400 Systolic blood pressure 110 mm[Hg] Agata Susana PA Work Phone: [facility] 03-30-2024 15:49-0400 Body mass index (BMI) [Ratio] 30.4 kg/m2 Agata Susana PA Work Phone: [facility] 03-30-2024 15:49-0400 Body weight 80.34 kg Agata Susana PA Work Phone: [facility] 03-30-2024 15:49-0400 Diastolic blood pressure 60 mm[Hg] Agata Susana PA Work Phone: [facility] 03-30-2024 15:49-0400 Systolic blood pressure 100 mm[Hg] Agata Cleveland PA Work Phone: [facility] Encounters Encounter Date Encounter Type Care Provider Facility Start: 07-13-2024 End: 07-13-2024 Clinisync Result Encounter Roosevelt Mauricio DO Work Phone: [facility] Unsolicited Start: 07-13-2024 End: 07-13-2024 Clinisync Result Encounter Roosevelt Mauricio DO Work Phone: [facility] Unsolic[facility] Start: 07-13-2024 End: 07-13-2024 ambulatory Jesus Tsang Facility:[facility] Start: 07-12-2024 End: 07-12-2024 ambulatory Roosevelt Mauricio Facility:[facility] Start: 07-11-2024 End: 07-11-2024 Clinisync Result Encounter Roosevelt Mauricio DO Work Phone: [facility] Unsolic[facility] Start: 07-11-2024 End: 07-11-2024 Clinisync Result Encounter Roosevelt Mauricio DO Work Phone: [facility]solic[facility] Start: 07-07-2024 End: 07-07-2024 Bamboo flowsheet Roosevelt Mauricio DO Work Phone: [facility] Start: 07-07-2024 End: 07-07-2024 Bamboo flowsheet Roosevelt Mauricio DO Work Phone: [facility] Start: 07-07-2024 End: 07-07-2024 ambulatory ROOSEVELT MAURICIO Not Available Start: 07-07-2024 End: 07-07-2024 flow sheet Roosevelt Mauricio DO Work Phone: [facility] Comment on above: 38 weeks [...] Start: 05-24-2024 End: 05-24-2024 flow sheet Agata Meza PA Work Phone: [facility] Comment on above: Third trimester preg shay; 34 weeks gestation of Start: 05-24-2024 End: 05-24-2024 Bamboo flowsheet Agata Meza PA Work Phone: [facility] Start: 05-24-2024 [...] 04-27-2024 flow sheet Agata PRUITT Work Phone: [facility] Comment on above: Third trimester preg shay; 28 weeks gestation of ; size inconsistent with dates Start: 04-27-2024 End: 04-27-2024 Bamboo flowsheet Agata PRUITT Work Phone: [facility] Start: 04-27-2024 End: 04-27-2024 Bamboo flowsheet Agata PRUITT Work Phone: [facility] Start: 04-08-2024 End: 04-08-2024 Clinisync Result Encounter Roosevelt Mauricio DO Work Phone: [facility] External Department Unsolicited Start: 04-08-2024 End: 04-08-2024 Clinisync Result Encounter Roosevelt Mauricio DO Work Phone: [facility] Unsolic[facility] Start: 03-30-2024 End: 03-30-2024 flow sheet Agata PRUITT Work Phone: [facility] Comment on above: 24 weeks gestation o f ; Diabetes mellitus screening; Gastroesophageal reflux in Start: 03-30-2024 End: 03-30-2024 ambulatory AGATA MEZA Not Available Start: 03-30-2024 End: 03-30-2024 Bamboo flowsheet Agata Huertasharifa PRUITT Work Phone: [facility] Start: 03-30-2024 End: 03-30-2024 Bamboo flowsheet Agata Meza PA Work Phone: [facility] Start: 03-12-2024 End: 03-16-2024 Clinisync Result Encounter Agata Meza EDMOND Work Phone: [facility] Unsolicited Start: 03-12-2024 End: 03-16-2024 Clinisync Result Encounter Agata PRUITT Work Phone: [facility] Unsolic[facility] Start: 03-02-2024 End: 03-02-2024 ambulatory ROOSEVELT MAURICIO Not Available Start: 02-10-2024 End: 02-10-2024 ambulatory AGATA MEZA Not Available Start: 01-13-2024 End: 01-13-2024 ambulatory ROOSEVELT MAURICIO Not Available Start: 12-18-2023 End: 12-18-2023 ambulatory ROOSEVELT MAURICIO Not Available Start: 12-04-2022 End: 12-04-[address] SHANTELL SIMON . Facility: Start: 09-18-2022 End: 09-19-[address] JESUS TSANG . Facility: Start: 07-05-2022 End: 07-06-[address] JESUS TSANG . Facility: Start: 05-23-2022 End: 05-23-[address] JESUS TSANG . Facility: Procedures Date Procedure Procedure Detail Performing Clinician Start: 07-13-2024 ALL CBC WITH AUTO DIFF Roosevelt Mauricio DO Work Phone: Start: 07-11-2024 [facility] CBC WITH PLATEL ET NO DIFFERENTIAL Roosevelt Mauricio DO Work Phone: Start: 06-29-2024 Urnls dip stick/tabl et rgnt [...] auto t hin layer prep mnl screen Rooseveltsushant Marsho DO Work Phone: Plan of Treatment Date Care Activity Detail Author Start: 07-07-2024 End: 07-07-2024 Patient encounter procedure 07/07/2024 10:20 AM EST Routine [facility] [address] [place] [address] Roosevelt Martínez, DO [address] [place] [address] [facility] Start: 06-29-2024 End: 06-29-2024 [...] [facility] [address] [place] [id number] Roosevelt Martínez DO [address] [place] [address] [facility] Start: 06-07-2024 End: 06-07-2024 Patient encounter procedure 06/07/2024 2:50 PM EST Routine [facility] [address] [place] [id number] Agata Meza PA [address] [place] [address] [facility] Start: 05-24-2024 End: 05-24-2024 Patient encounter procedure 05/24/2024 2:40 PM EST Routine [facility] [address] [place] [id number] Agata Meza, PA [address] [place] [address] [facility] Start: 05-10-2024 End: 05-10-2024 Patient encounter procedure 05/10/2024 2:50 PM EDT Routine [facility] [address] [place] [phone] Roosevelt Martínez DO [address] [facility] [address] [place], [place] [id number] Arrived [facility] Comment on above: Arrived Start: 05-10-2024 End: 05-10-2024 Professional / ancillary services management 05/10/2024 2:00 PM EDT Ancillary Procedure [facility] [address] [facility] [place] [address] [facility] Start: 04-27-2024 End: 04-27-2024 Patient encounter procedure 04/27/2024 3:40 PM EDT Routine [facility] [address] [facility] [address] Agata Meza PA [address] [facility] [address] [place], [place] [id number] [facility] Start: 04-27-2024 End: 04-27-2025 US for US OB SCAN FOR GROWTH Imaging Routine size inconsistent with dates Expected: 04/27/2024 (Approximate), Expires: 04/27/2025 [facility] Work Phone: Comment on above: Expected: 04/27/2024 (Approximate), Expires: 04/27/2025 Start: 03-30-2024 End: 03-30-2024 Patient encounter procedure [facility] Comment on above: Arrived Start: 03-30-2024 End: 03-30-2025 CBC panel - Blood by Automated count CBC Lab Routine Diabetes mellitus screening Expected: 03/30/2024 (Approximate), Expires: 03/30/2025 [facility] Work Phone: Comment on above: Expected: 03/30/2024 (Approximate), Expires: 03/30/2025 Start: 03-30-2024 End: 03-30-2025 Measurement of glucose 1 hour after glucose challenge for glucose tolerance test Glucose tolerance, 1 hour Lab Routine Diabetes mellitus screening Expected: 03/30/2024 (Approximate), Expires: 03/30/2025 [facility] Comment on above: Expected: 03/30/2024 (Approximate), Expires: 03/30/2025 Payers Date Payer Category Payer Medicaid [id number] 2024 Medicaid [id number] 2018 [facility] BCBS [id number] 2018 Unknown BCBS BCBS xxxxxx [id number] 2018-Present [phone] [address] [place], [place] [address] [id number] 2001 Unknown [id number] 2.16.840.1.681135.3.579.2. 593 2001 Unknown [id number] 2.16.840.1.817364.3.579.2. 593 2001 Unknown [id number] 2.16.840.1.780275.3.579.2. 593 2001 Unknown [id number] 2.16.840.1.118572.3.579.2. 593 2001 Unknown [id number] 2.16.840.1.610469.3.579.2. 1259 2001 Unknown [id number] 2.16.840.1.086174.3.579.2. 9 2001 Unknown [id number] 2.16.840.1.594910.3.579.2. 1258 2001 Unknown [id number] 2.16.840.1.729570.3.579.2. 1258 2001 Unknown [id number] 2.16.840.1.880660.3.579.2. 1258 2001 Unknown [id number] 2.16.840.1.461325.3.579.2. 1258 2001 Unknown [id number] 2.16.840.1.689871.3.579.2. 1258 2001 Unknown [id number] 2.16.840.1.402174.3.579.2. 1258 2001 Unknown [id number] 2.16.840.1.588171.3.579.2. 1258 2001 Unknown [id number] 2.16.840.1.653377.3.579.2. 1258 2001 Unknown [id number] 2.16.840.1.968618.3.579.2. 1258 2001 Unknown [id number] 2.16.840.1.691704.3.579.2. 1258 2001 Unknown [id number] 2.16.840.1.640311.3.579.2. 1259 1959 Self-pay 1959 Unknown [id number] Unknown [id number] 2.16.840.1.611166.3.579.2. 531 Unknown [id number] 2.16.840.1.402133.3.579.2. 531 Social History Date Type Detail Facility Start: 11-19-2023 Tobacco smoking stat [facility] Never smoked tobacco [facility] Start: 11-19-2023 Tobacco use and exposure Smoke less tobacco non-user [facility] Start: 03-02-2024 End: 03-30-2024 Alcoholic beverage intake Lifetime non-drinker (finding) [facility] Start: 11-19-2023 End: 07-07-2024 History of Social function [facility] Start: 11-19-2023 Tobacco use panel [facility] Start: 04-20-2023 Alcohol Comment Caffeine intake: non e [facility] Start: 10-27-2023 [facility] Start: 2001 Sex assigned at Not on file [facility] Start: 05-10-2024 End: 07-07-2024 Alcoholic beverage intake Current drinker of alcohol (finding) [facility] Clinical Notes 03-30-2024 to 07-07-2024 Amarilis Oden LPN - 07/07/2024 10:20 AM Zechariah Narvaez, IS CONSULTANT - 06/29/2024 4:00 PM EDMOND Niño - 06/22/2024 3:50 PM Zechariah Narvaez, [facility] - 06/14/2024 2:20 PM EST Note Date [...] (upper airway resistance syndrome) 11/19/2023 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 Exam conducted with a websphere consultant present. 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 Exam conducted with a websphere consultant present. 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 Exam conducted with a websphere consultant present. 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 [...] of: EDMOND Osborn documented in this encounter [facility] 05-24-2024 History of Presen t illness Narrative [...] (upper airway resistance syndrome) 11/19/2023 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 History of shingles 11/23/2023 History [...] Eczema Fatigue Gastritis without bleeding 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 [...] Eczema Fatigue Gastritis without bleeding 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 Exam conducted with a websphere consultant present. 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 Exam conducted with a websphere consultant present. Vitals: Estimated body mass index is [...] of: EDMOND Osborn documented in this encounter [facility] Evaluation note Diagnosis Third trimester [...] ized section and content) DATE CREATED AUTHOR 12/09/2022 [facility] DATE CREATED AUTHOR AUTHOR'S ORGANIZ ATION 07/10/2024 [facility] EPIC DATE CREATED AUTHOR AUTHOR'S ORGANIZ ATION 07/20/2024 [facility] Reason for Visit (unrecogniz ed section and content) Reason Comments Routine Visit Care Teams (unrecognized sec tion and content) Test Engine Mechanic Relationship Specialty Start Date End Date Jesus Tsang MD [address] [place] [address] PCP - General Family Medicine 04/21/23 Test Engine Mechanic Relationship Specialty Start Date End Date Jesus Tsang MD [address] [place] [address] PCP - General Family Medicine 04/21/23 Test Engine Mechanic Relationship Specialty Start Date End Date Jesus Tsang MD [address] [place] [address] PCP - General Family Medicine 04/21/23 Test Engine Mechanic Relationship Specialty Start Date End Date Jesus Tsang MD [address] [place] [address] PCP - General Family Medicine 04/21/23 Test Engine Mechanic Relationship Specialty Start Date End Date Jesus Tsang MD [address] [place] [address] PCP - General Family Medicine 04/21/23 Test Engine Mechanic Relationship Specialty Start Date End Date Jesus Tsang MD [address] [facility] [place] [address] PCP - General Family Medicine 04/21/23 Test Engine Mechanic Relationship Specialty Start Date End Date Jesus Tsang MD [address] [facility] [place] [address] PCP - General Family Medicine 04/21/23 Test Engine Mechanic Relationship Specialty Start Date End Date Jesus Tsang MD [address] [facility] [place] [address] PCP - General Family Medicine 04/21/23 Test Engine Mechanic Relationship Specialty Start Date End Date Jesus Tsang MD [address] [facility] [place] [address] PCP - General Family Medicine 04/21/23 Test Engine Mechanic Relationship Specialty Start Date End Date Jesus Tsang MD [address] [facility] [place] [address] PCP - General Family Medicine 04/21/23 FOR [...] BE BASED ON THE PRIMARY CLINICAL RECORDS. [facility] [employer] [facility] provides no warranty or guarantee of the accuracy or completeness of information in this document.
[2024-07-31 19:48] VITALS: BP 156/116; PULSE 92; TEMP 36.7; O2SAT 100; BMI 31.0
--- NOTE | 2024-07-31 20:10 | ED_ITS ---
HPI HPI - General Adult General Chief complaint: Headache Stated complaint: headache, 3 weeks post delivery Time Seen by Provider: 07/31/24 19:46 Source: patient Mode of arrival: walk-in Limitations: no limitations History of Present Illness HPI narrative: This 24-year-old female who is 3 weeks presents for evaluation of a headache for the past 4 days. The patient's baby at the time of delivery. She has been pumping her breastmilk. She denies any neck pain or stiffness. She states intermittently she has some blurred vision and feels mildly dizzy. She does have a history of POTS. She has not had any chest pain or shortness of breath. She has not having any abdominal pain or fever. She states her blood pressure is also been running high. She did not have a history of high blood pressure but her blood pressure did spike when she was being induced. She is not on any blood pressure medications at this time. Related Data Home Medications ?Medication ?Instructions ?Recorded ?Confirmed No Known Home Medications 02/12/23 07/31/24 Allergies Allergy/AdvReac Type Severity Reaction Status Date / Time No Known Drug Allergies Allergy Verified 07/31/24 19:48 Opioid HPI Opioid Management Most Recent Opioid Data: Last Pain Scale 8 07/31/24 20:00 07/31/24 Ur Phencyclidine Scrn Negative (NEGATIVE) 07/11/24 20:20 06/20 10/10 Review of Systems ROS Status of ROS 10 or more systems reviewed and unremark able except as noted in history and below PFSH PFSH Social History Smoking status: Never smoker Little interest or pleasure in doing things: not at all Feeling down, depressed, or hopeless: not at all Exam Narrative Exam Narrative: Vital signs and Nursing Notes reviewed: Patient is afebrile with a normal pulse, blood pressure was elevated at 150/90 annually General: Awake, alert, oriented, no acute distress, lying comfortably on the stretcher HEENT: Normocephalic atraumatic, mucous membranes are moist and pink, eyes are clear, normal conjunctiva, vision is grossly intact, funduscopic exam was normal although limited as the patient's eyes were not dilated for the exam Neck: Supple, no meningeal signs, no anterior or posterior cervical lymphadenopathy Chest: Lungs are clear to auscultation with good air entry, there is no wheezing rhonchi or rales appreciated no accessory muscle use, patient is speaking in complete sentences-no chest wall tenderness to palpation CVS: Regular rate and rhythm S1-S2, no murmurs rubs or gallops, pulses are brisk and equal bilaterally ABD: Soft, nondistended, nontender, no rebound guarding or rigidity, bowel sounds are normal, no pulsatile masses appreciated Extremities: Moving all extremities, no lower extremity tenderness or swelling noted, negative Homans' sign, pulses are brisk and equal bilaterally Skin: Normal in appearance without rash,pallor, petechiae or purpura Neuro: No focal deficits, speech is clear, supervisor furnace room strength is intact, no facial droop Constitutional Vital Signs, click to edit/add: Last Vital Signs Temp 98.1 F 07/31/24 19:48 Pulse 92 H 07/31/24 19:48 Resp 16 07/31/24 19:48 BP 150/90 H 07/31/24 20:28 Pulse Ox 100 07/31/24 19:48 O2 Del Method Room Air 07/31/24 19:48 Course Vital Signs Vital signs: Vital Signs Temperature 98.1 F 07/31/24 19:48 Pulse Rate 92 H 07/31/24 19:48 Respiratory Rate 16 07/31/24 19:48 Blood Pressure 156/116 H 07/31/24 19:48 Pulse Oximetry 100 07/31/24 19:48 Oxygen Delivery Method Room Air 07/31/24 19:48 Temperature 98.1 F 07/31/24 19:48 Pulse Rate 92 H 07/31/24 19:48 Respiratory Rate 16 07/31/24 19:48 Blood Pressure 150/90 H 07/31/24 20:28 Pulse Oximetry 100 07/31/24 19:48 Oxygen Delivery Method Room Air 07/31/24 19:48 Medical Decision Making MDM Narrative Medical decision making narrative: This 24-year-old female who is 3 weeks and lost her baby at the time of delivery presents for evaluation of a global headache with intermittent blurred vision. Her blood pressure was mildly elevated upon arrival. A manual blood pressure was 150/90. She is not having any lower extremity swelling. She does not have any fever. She has no neck pain or stiffness. She does admit that she has moderately stressed after the loss of her baby. An IV was placed and she was medicated with IV fluids, Reglan Benadryl and Toradol. On reevaluation she is feeling much better and request to be discharged home. She has a follow-up appointment tomorrow with her OUTDOOR ILLUMINATING ENGINEER. A workup for preeclampsia was ordered. She has a normal white count and hemoglobin. Electrolytes and liver function tests are normal. PT/INR is normal. Urine is negative for infection. She does not appear to be spilling any protein in her urine. Her had similar symptoms several days ago and influenza and COVID-19 testing were ordered and are negative. Clinically she does not have preeclampsia and is otherwise stable for discharge. Lab Data Labs: Lab Results 07/31/24 07/31/24 07/31/24 Range/Units 20:35 20:36 20:40 WBC 9.4 (4.0-11.0) 10^3/uL RBC 4.29 (4.20-5.40) 10^6/uL Hgb 12.1 (12.0-16.0) g/dL Hct 36.6 (36.0-48.0) % MCV 85.3 (81.0-99.0) fL MCH 28.2 (26.7-34.0) pg MCHC 33.1 (29.9-35.2) g/dL RDW 12.8 (11.0-15.0) % Plt Count 400 (150-450) 10^3/uL MPV 10.6 (9.5-13.5) fL Neut % (Auto) 51.1 (43.0-75.0) % Lymph % (Auto) 41.4 (20.5-60.0) % Jennings % (Auto) 5.1 (1.7-12.0) % Eos % (Auto) 1.1 (0.9-7.0) % Baso % (Auto) 1.1 (0.2-2.0) % Neut # (Auto) 4.8 (1.4-6.5) 10^3/uL Lymph # (Auto) 3.9 H (1.2-3.8) 10^3/uL Jennings # (Auto) 0.5 (0.3-0.8) 10^3/uL Eos # (Auto) 0.1 (0.0-0.7) 10^3/uL Baso # (Auto) 0.1 (0.0-0.1) 10^3/uL Abs Immat Gran (auto) 0.02 (0.00-0.03) 10^3/uL Imm/Tot Granulo (auto) 0.2 (0.0-0.5) % PT 10.6 (9.0-11.6) sec INR 1.00 APTT 30.1 (22.3-36.2) sec Sodium 141 (136-145) mmol/L Potassium 3.7 (3.5-5.1) mmol/L Chloride 105 (98-107) mmol/L Carbon Dioxide 26.5 (21.0-32.0) mmol/L Anion Gap 13.2 BUN 23.0 H (7.0-18.0) mg/dL Creatinine 1.38 H (0.55-1.02) mg/dL Est GFR ( Amer) 57 L (>=60 mL/min/1.73m^2) Est GFR (Non-Af Amer) 47 L (>=60 mL/min/1.73m^2) BUN/Creatinine Ratio 16.7 Glucose 88 (74-106) mg/dL Calcium 8.8 (8.5-10.1) mg/dL Total Bilirubin 0.3 (0.2-1.0) mg/dL AST 12 L (15-37) U/L ALT 14 (14-59) U/L Alkaline Phosphatase 128 H (46-116) U/L Total Protein 7.4 (6.4-8.2) g/dL Albumin 3.5 (3.4-5.0) g/dL Globulin 3.9 g/dL Albumin/Globulin Ratio 0.9 Urine Color Lt. yellow (YELLOW) Urine Clarity Clear (CLEAR) Urine pH 6.0 (5.0-9.0) Ur Specific [place] 1.025 (1.005-1.025) Urine Protein Negative (NEG/TRACE) mg/dL Urine Glucose (UA) Negative (NEGATIVE) mg/dL Urine Ketones Negative (NEGATIVE) mg/dL Urine Occult Blood Negative (NEGATIVE) Urine Nitrite Negative (NEGATIVE) Urine Bilirubin Negative (NEGATIVE) Urine Urobilinogen 0.2 (0.2-1.0) EU/dL Ur Leukocyte Esterase Trace A (NEGATIVE) Urine RBC 0-2 (0-2) #/HPF Urine WBC 2-5 A (NONE SEEN) #/HPF Ur Squamous Epith Cells Few A (NONE/RARE) #/LPF Urine Crystals None seen (None Seen) #/HPF Urine Bacteria None seen (NONE SEEN) #/HPF Urine Casts None seen (NONE SEEN) #/LPF Urine Mucus None seen (NONE SEEN) Ur Culture Indicated? No Influenza Type A Ag Negative Influenza Type B Ag Negative SARS-CoV-2 Ag (CV2AG) Negative (NEGATIVE) Discharge Plan Discharge Chief Complaint: Headache Clinical Impression: Headache Patient Disposition: Home, Self-Care Time of Disposition Decision: 21:35 Condition: Good Prescriptions / Home Meds: No Action No Known Home Medications Print Language: Czech Instructions: Acute Headache (ED) Referrals: Fady Tsang MD [Primary Care Provider] - 1 week
[2024-07-31 20:28] VITALS: BP 150/90
[2024-07-31] MEDS: DIPHENHYDRAMINE HCL 50 MG/ML VIAL 12.5 MG IV (20:31)
[2024-07-31] MEDS: METOCLOPRAMIDE HCL 10 MG/2 ML VIAL IVP (20:32)
[2024-07-31] MEDS: KETOROLAC TROMETHAMINE 30 MG/ML VIAL 15 MG IVP (20:32)
[2024-07-31 20:51] LABS: Basophils Absolute Auto 0.1 10^3/uL (0.0-0.1); Basophils Percent Auto 1.1 % (0.2-2.0); Eosinophils Absolute Auto 0.1 10^3/uL (0.0-0.7); Eosinophils Percent Auto 1.1 % (0.9-7.0); Hematocrit 36.6 % (36.0-48.0); Hemoglobin 12.1 g/dL (12.0-16.0); Immature Granulocytes Abs Auto 0.02 10^3/uL (0.00-0.03); Immature Granulocytes Pct Auto 0.2 % (0.0-0.5); Lymphocytes Absolute Auto 3.9 10^3/uL (1.2-3.8); Lymphocytes Percent Auto 41.4 % (20.5-60.0); Mean Corpuscular HGB Conc 33.1 g/dL (29.9-35.2); Mean Corpuscular Hemoglobin 28.2 pg (26.7-34.0); Mean Corpuscular Volume 85.3 fL (81.0-99.0); Mean Platelet Volume 10.6 fL (9.5-13.5); Monocytes Absolute Auto 0.5 10^3/uL (0.3-0.8); Monocytes Percent Auto 5.1 % (1.7-12.0); Neutrophils Absolute Auto 4.8 10^3/uL (1.4-6.5); Neutrophils Percent Auto 51.1 % (43.0-75.0); Platelet Count 400 10^3/uL (150-450); Red Blood Count 4.29 10^6/uL (4.20-5.40); Red Cell Distribution Width 12.8 % (11.0-15.0); White Blood Count 9.4 10^3/uL (4.0-11.0)
[2024-07-31 20:52] LABS: Bilirubin Urine NEGATIVE (NEGATIVE); Blood Urine NEGATIVE (NEGATIVE); Clarity Urine CLEAR (CLEAR); Color Urine LT. YELLOW (YELLOW); Glucose Urine UA NEGATIVE (NEGATIVE); Ketones Urine NEGATIVE (NEGATIVE); Leukocyte Esterase Urine TRACE (NEGATIVE); Nitrite Urine NEGATIVE (NEGATIVE); Protein Urine NEGATIVE (NEG/TRACE); Specific Gravity Urine 1.025 (1.005-1.025); Urobilinogen Urine 0.2 EU/dL (0.2-1.0)
[2024-07-31] MEDS: 0.9 % SODIUM CHLORIDE 1,000 ML 1000 ML IV (20:54)
[2024-07-31 21:03] LABS: Bacteria Urine NONE SEEN #/HPF (NONE SEEN); Cast Seen? NONE SEEN #/LPF (NONE SEEN); Crystals Seen? None Seen #/HPF (None Seen); Mucus Urine NONE SEEN (NONE SEEN); RBC Urine 0-2 #/HPF (0-2); Squamous Epithelial Cell Urine FEW #/LPF (NONE/RARE); Urine Culture Indicated NO
[2024-07-31 21:05] LABS: Influenza Virus A Antigen Negative; Influenza Virus B Antigen Negative; Internal Control Within Normal Limits; SARS-CoV-2 Ag NEGATIVE (NEGATIVE)
[2024-07-31 21:07] LABS: Partial Thromboplastin Time 30.1 sec (22.3-36.2); Prothrombin Time 10.6 sec (9.0-11.6)
[2024-07-31 21:10] LABS: Alanine Aminotransferase 14 U/L (14-59); Albumin Globulin Ratio 0.9; Albumin Level 3.5 g/dL (3.4-5.0); Alkaline Phosphatase 128 U/L (46-116); Anion Gap 13.2; Aspartate Amino Transferase 12 U/L (15-37); BUN Creatinine Ratio 16.7; Bilirubin Total 0.3 mg/dL (0.2-1.0); Calcium 8.8 mg/dL (8.5-10.1); Carbon Dioxide 26.5 mmol/L (21.0-32.0); Chloride 105 mmol/L (98-107); Estimated GFR (African America 57 (>=60 mL/min/1.73m^2); Estimated GFR (Non-African Ame 47 (>=60 mL/min/1.73m^2); Globulin 3.9 g/dL; Glucose 88 mg/dL (74-106); Potassium 3.7 mmol/L (3.5-5.1); Sodium 141 mmol/L (136-145); Total Protein 7.4 g/dL (6.4-8.2)
== END 2024-07-31 21:52 | disposition home or self-care (01) ==
PROVIDERS: Emergency Provider Emergency Medicine; PCP Family Medicine
DX: O90.89 Other complications of the puerperium, not elsewhere classified (principal); R51.9 Headache, unspecified
CPT/HCPCS: 36415; 80053; 81001; 85025; 85610; 85730; 87804; 87811; 96374; 96375; 99285; J1200; J1885; J2765

== ENCOUNTER 2024-09-02 08:34 | Outpatient (OUT) | payer BC, MEDICAID, SELFPAY ==
--- NOTE | 2024-09-02 08:40 | CT_ITS ---
The [address] [address] Patient Name: JAMES STEEL MRN: [id number] date: 2000 Sex: F Assigned Patient Location: CT Current Patient Location: CT Accession/Order Number: [id number] Exam Date: 09/02/2024 08:43 Report Date: 09/02/2024 18:16 At the request of: JESUS ALMONTE Procedure: CT cervical spine wo con EXAMINATION: CT cervical spine wo con HISTORY: Cervical Radiculopathy COMPARISON: No relevant comparison available. TECHNIQUE: Axial, Coronal, and Sagittal images were created without IV contrast. Dose reduction techniques were achieved by using automated exposure control and/or adjustment of mA and/or kV according to patient size and/or use of iterative reconstruction technique. FINDINGS: VERTEBRAL BODIES: No fracture, pars defect, or osseous lesion. FACET JOINTS: No disruption or abnormal widening. DISCS: No significant disc/facet abnormality, spinal stenosis, or foraminal stenosis. CENTRAL CANAL: No evidence of hemorrhage. PARASPINAL AREA: No visible mass. CT/CT cervical spine wo con IMPRESSION: 1. No abnormal or suspicious findings to account for patient's symptoms. Electronically authenticated by: ALEXIS STRONG Date: 09/02/2024 18:16
--- NOTE | 2024-09-02 08:40 | CT_ITS ---
The [address] [address] Patient Name: JAMES STEEL MRN: [id number] date: 2000 Sex: F Assigned Patient Location: CT Current Patient Location: CT Accession/Order Number: [id number] Exam Date: 09/02/2024 08:43 Report Date: 09/02/2024 18:20 At the request of: JESUS ALMONTE Procedure: CT head/brain wo con EXAMINATION: CT head/brain wo con HISTORY: Cervical Radiculopathy COMPARISON: CT head 10/21/2023 TECHNIQUE: Axial CT images were obtained without IV contrast. Dose reduction techniques were achieved by using automated exposure control and/or adjustment of mA and/or kV according to patient size and/or use of iterative reconstruction technique. FINDINGS: BRAIN: No edema, hemorrhage, mass, acute infarction, or inappropriate atrophy. CSF SPACES: No hydrocephalus, subarachnoid hemorrhage, or mass. Appropriate for age. SKULL: No fracture, mass, or other significant visible lesion. SINUSES: No significant mucosal thickening or fluid on the limited views. ORBITS: No appreciable abnormality on the limited views. OTHER: Negative CT/CT head/brain wo con IMPRESSION: 1. No appreciable abnormality. Electronically authenticated by: ALEXIS STRONG Date: 09/02/2024 18:20
== END 2024-09-02 08:35 | disposition home or self-care (01) ==
LOC: CT 08:34
PROVIDERS: PCP Family Medicine; Visit Provider Family Medicine
DX: M54.12 Radiculopathy, cervical region (principal)
CPT/HCPCS: 70450; 72125

== ENCOUNTER 2024-10-30 14:54 | Emergency (ER) | payer BC, MEDICAID, SELFPAY ==
[2024-10-30 14:57] VITALS: BP 162/92; PULSE 92; TEMP 36.6; O2SAT 100; BMI 27.5
--- NOTE | 2024-10-30 15:02 | ECG_ITS ---
The [facility] Test Date: 2024-10-30 Pat Name: JAMES STEEL Department: Room: - Gender: Female [place]: : 2000 Requested By: [id number] Order Number: [id number] Reading MD: ANNA LI M.D. Measurements Intervals [place] Rate: 77 P: 33 FL: 164 QRS: 18 QRSD: 104 T: 41 QT: 382 QTc: 413 Interpretive Statements 1100 Sinus rhythm 2440 Incomplete right bundle branch block 9130 borderline ECG Compared to ECG 10/20/2023 12:22:15 No significant changes Electronically Signed On 10-31-2024 7:36:14 EDT by ANNA LI M.D.
--- NOTE | 2024-10-30 15:05 | ED_ITS ---
Documented by User: EDMOND Lennon 10/30/24 17:09 HPI HPI - General Adult General Chief complaint: Syncope Stated complaint: ALTERED MENTAL STATUS? Time Seen by Provider: 10/30/24 14:57 Source: patient History of Present Illness HPI narrative: Patient is a 24-year-old female who drove herself to the ER from work with complaints of feeling nauseous and near syncopal. She has a pertinent history of POTS gave in June without complication. States she was at work today at the [employer] where she has an [employer] when she started to eat a protein bar and felt nauseous she then vomited 3 times. She denies diarrhea and states she has been constipated for the past week having a bowel movement every 2 to 3 days. Her last bowel movement was yesterday and normal. She denies any chest pain or shortness of breath. States she gets lightheaded with standing and near syncopal feeling. She denies any abdominal pain. Patient denies any chance of stating her last menstrual cycle ended on October 28. She denies any known ill exposures. She is without headache or visual disturbance. Relieving factors: Reports rest Exacerbating factors: Reports other (standing. ) Related Data Home Medications ?Medication ?Instructions ?Recorded ?Confirmed No Known Home Medications 02/12/23 07/31/24 Allergies Allergy/AdvReac Type Severity Reaction Status Date / Time No Known Drug Allergies Allergy Verified 07/31/24 19:48 Opioid HPI Opioid Management Most Recent Opioid Data: Last Pain Scale 8 07/31/24 20:00 07/31/24 Ur Phencyclidine Scrn Negative (NEGATIVE) 07/11/24 20:20 06/20 10/10 Review of Systems ROS Constitutional Denies: fever or chills Eyes Denies: change in vision or blurry vision Ears, nose, mouth, and throat Denies: throat pain or neck pain Cardiovascular Denies: chest pain or palpitations Respiratory Denies: shortness of breath or cough Gastrointestinal Reports: nausea, vomiting, constipation and belching; Denies: abdominal pain Genitourinary Denies: painful urination, urinary frequency or urinary urgency Musculoskeletal Denies: back pain, neck pain or extremity pain Integumentary/Breast Denies: rash, itching or redness Neurological Denies: headache, numbness in extremities or weakness in extremities Psychiatric Denies: anxiety Endocrine Denies: excessive urination PFSH PFSH Social History Smoking status: Never smoker Little interest or pleasure in doing things: not at all Feeling down, depressed, or hopeless: not at all Exam Narrative Exam Narrative: Nurses notes and vital signs reviewed and patient is not hypoxic. General: The patient appears well and in no apparent distress. Patient is resting comfortably on cart. Skin: Warm, dry, no pallor noted. Head: Normocephalic, atraumatic Neck: Supple, trachea mid-line, no tenderness, no lymphadenopathy Eye: Pupils are equal, round and reactive to light, EOMI Ears, Nose, Mouth, and Throat: TM are clear, normal light reflex, oral mucosa is moist, no posterior oropharynx erythema or hypertrophy, uvula is mid-line Cardiovascular: Regular Rate and Rhythm Respiratory: Patient is in no distress, no accessory muscle use, lungs are clear to auscultation, no wheezing, rales or rhonchi. Chest Wall: no tenderness Back: non-tender, no CVA tenderness Musculoskeletal: normal ROM, no tenderness, no swelling GI: Normal bowel sounds, no tenderness to palpation, no masses appreciated. No rebound, guarding, or rigidity noted. Abdomen appears nonsurgical. Neurological: A&O x4 Psychiatric: Cooperative Constitutional Vital Signs, click to edit/add: Last Vital Signs Temp 98 F 10/30/24 14:57 Pulse 92 H 10/30/24 14:57 Resp 16 10/30/24 14:57 BP 162/92 H 10/30/24 14:57 Pulse Ox 100 10/30/24 14:57 O2 Del Method Room Air 10/30/24 14:57 Course Vital Signs Vital signs: Vital Signs Temperature 98 F 10/30/24 14:57 Pulse Rate 92 H 10/30/24 14:57 Respiratory Rate 16 10/30/24 14:57 Blood Pressure 162/92 H 10/30/24 14:57 Pulse Oximetry 100 10/30/24 14:57 Oxygen Delivery Method Room Air 10/30/24 14:57 Temperature 98 F 10/30/24 14:57 Pulse Rate 92 H 10/30/24 14:57 Respiratory Rate 16 10/30/24 14:57 Blood Pressure 162/92 H 10/30/24 14:57 Pulse Oximetry 100 10/30/24 14:57 Oxygen Delivery Method Room Air 10/30/24 14:57 Medical Decision Making [facility] Narrative Medical decision making narrative: Patient notes pertinent history of POTS, states she will occasionally have actual syncopal episodes at home she noted some pain in her left arm yesterday from how she was laying and subsequently passed out. She denies any chest pain or discomfort denies shortness of breath. She reports feeling near syncopal today upon standing after vomiting 3 times at work experiencing nausea after trying a protein bar. She reports a normal bowel movement yesterday but she has been going every 2 to 3 days instead of every day like her normal. Patient be given 1 L IV fluids and 4 mg IV Zofran. Baseline labs will be obtained for electrolyte balance and CBC given recent finish her menses. Patient reevaluated, labs discussed. She was briefly hyperventilating noting that she wanted the IV removed from her arm she called with verbal reassurance. We discussed her symptoms of POTS which has been more long-term and more recent symptoms which may be related to anxiety or mental health. Patient notes she has been struggling with her mood and emotions since the passing of her baby 1 day in the NICU . She denies feeling depressed suicidal or homicidal. 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 We discussed the importance of ongoing follow-up to her PCP and potential further mental health counseling appointments to deal with her stress and potential anxiety. She received a liter IV fluids here and potassium was optimized with a 25 mill equivalent tablet. She is no longer nauseous. She is given a note to be off work this evening and we recommend follow-up to her family doctor. Patient has been proactive in including more salt in her diet and having healthy conversations with her boyfriend. She feels safe at home. Patient reports feeling better and we discussed her urinalysis and the importance to continue with fluids. She plans to go home and rest and was thankful for visit. Mental health counselor advised that the patient did not want to have any further follow-ups but patient aware that she can use them as an avenue to deal with her stress. The patient is to followup with primary care physician in next 2-3 days or to return to the emergency department should any of the signs or symptoms worsen or new symptoms develop. Patient had questions answered. The patient agrees with the following Diagnosis and Treatment plan and the patient will be discharged home. Lab Data Labs: Lab Results 10/30/24 10/30/24 Range/Units 15:17 16:35 WBC 9.5 (4.0-11.0) 10^3/uL RBC 4.43 (4.20-5.40) 10^6/uL Hgb 12.6 (12.0-16.0) g/dL Hct 37.1 (36.0-48.0) % MCV 83.7 (81.0-99.0) fL MCH 28.4 (26.7-34.0) pg MCHC 34.0 (29.9-35.2) g/dL RDW 12.8 (11.0-15.0) % Plt Count 341 (150-450) 10^3/uL MPV 11.0 (9.5-13.5) fL Neut % (Auto) 55.8 (43.0-75.0) % Lymph % (Auto) 38.1 (20.5-60.0) % [place] % (Auto) 5.1 (1.7-12.0) % Eos % (Auto) 0.3 L (0.9-7.0) % Baso % (Auto) 0.6 (0.2-2.0) % Neut # (Auto) 5.3 (1.4-6.5) 10^3/uL Lymph # (Auto) 3.6 (1.2-3.8) 10^3/uL [place] # (Auto) 0.5 (0.3-0.8) 10^3/uL Eos # (Auto) 0.0 (0.0-0.7) 10^3/uL Baso # (Auto) 0.1 (0.0-0.1) 10^3/uL Abs Immat Gran (auto) 0.01 (0.00-0.03) 10^3/uL Imm/Tot Granulo (auto) 0.1 (0.0-0.5) % Sodium 139 (136-145) mmol/L Potassium 3.2 L (3.5-5.1) mmol/L Chloride 103 (98-107) mmol/L Carbon Dioxide 24.0 (21.0-32.0) mmol/L Anion Gap 15.2 BUN 16.0 (7.0-18.0) mg/dL Creatinine 0.84 (0.55-1.02) mg/dL Est GFR ( Amer) >60 (>=60 mL/min/1.73m^2) Est GFR (Non-Af Amer) >60 (>=60 mL/min/1.73m^2) BUN/Creatinine Ratio 19.0 Glucose 90 (74-106) mg/dL Calcium 9.6 (8.5-10.1) mg/dL Total Bilirubin 0.4 (0.2-1.0) mg/dL AST 15 (15-37) U/L ALT 20 (14-59) U/L Alkaline Phosphatase 80 (46-116) U/L Total Protein 7.8 (6.4-8.2) g/dL Albumin 4.5 (3.4-5.0) g/dL Globulin 3.3 g/dL Albumin/Globulin Ratio 1.4 Lipase 29.0 (16.0-77.0) U/L Serum HCG, Qual Negative (NEGATIVE) Urine Color Lt. yellow (YELLOW) Urine Clarity Clear (CLEAR) Urine pH 6.0 (5.0-9.0) Ur Specific [place] 1.020 (1.005-1.025) Urine Protein Negative (NEG/TRACE) mg/dL Urine Glucose (UA) Negative (NEGATIVE) mg/dL Urine Ketones >=80 A (NEGATIVE) mg/dL Urine Occult Blood Negative (NEGATIVE) Urine Nitrite Negative (NEGATIVE) Urine Bilirubin Negative (NEGATIVE) Urine Urobilinogen 0.2 (0.2-1.0) EU/dL Ur Leukocyte Esterase Negative (NEGATIVE) Urine RBC 0-2 (0-2) #/HPF Urine WBC 0-2 A (NONE SEEN) #/HPF Ur Squamous Epith Cells Moderate A (NONE/RARE) #/LPF Urine Crystals None seen (None Seen) #/HPF Urine Bacteria Trace A (NONE SEEN) #/HPF Urine Casts None seen (NONE SEEN) #/LPF Urine Mucus Trace A (NONE SEEN) Ur Culture Indicated? No ECG Data Attestation: I personally reviewed and interpreted this ECG as follows: Interpretation: EKG interpretation: Emergency Department physician interpretation, normal sinus rhythm 77 bpm, no ectopy, no ST segment elevation, Right bundle branch block. T wave Inversion V1.. Discharge Plan Discharge Chief Complaint: Syncope Clinical Impression: Postural orthostatic tachycardia syndrome [POTS], Nausea & vomiting, Stress Patient Disposition: Home, Self-Care Time of Disposition Decision: 17:08 Condition: Good Prescriptions / Home Meds: No Action No Known Home Medications Print Language: Khmer Instructions: Potassium Content of Foods List (ED), Stress (ED), Acute Nausea and Vomiting (ED) Referrals: Fady Tsang MD [Primary Care Provider] - As soon as possible Discharge Date/Time: 10/30/24 17:20 Documented by User: Bharat Islas MD 10/30/24 19:42 HPI HPI - General Adult General Chief complaint: Syncope Stated complaint: ALTERED MENTAL STATUS? Time Seen by Provider: 10/30/24 14:57 Related Data Home Medications ?Medication ?Instructions ?Recorded ?Confirmed No Known Home Medications 02/12/23 07/31/24 Allergies Allergy/AdvReac Type Severity Reaction Status Date / Time No Known Drug Allergies Allergy Verified 07/31/24 19:48 Opioid HPI Opioid Management Most Recent Opioid Data: Last Pain Scale 8 07/31/24 20:00 07/31/24 Ur Phencyclidine Scrn Negative (NEGATIVE) 07/11/24 20:20 06/20 10/10 PFSH PFSH Social History Smoking status: Never smoker Little interest or pleasure in doing things: not at all Feeling down, depressed, or hopeless: not at all Exam Constitutional Vital Signs, click to edit/add: Last Vital Signs Temp 98 F 10/30/24 14:57 Pulse 92 H 10/30/24 14:57 Resp 16 10/30/24 14:57 BP 162/92 H 10/30/24 14:57 Pulse Ox 100 10/30/24 14:57 O2 Del Method Room Air 10/30/24 14:57 Course Vital Signs Vital signs: Vital Signs Temperature 98 F 10/30/24 14:57 Pulse Rate 92 H 10/30/24 14:57 Respiratory Rate 16 10/30/24 14:57 Blood Pressure 162/92 H 10/30/24 14:57 Pulse Oximetry 100 10/30/24 14:57 Oxygen Delivery Method Room Air 10/30/24 14:57 Temperature 98 F 10/30/24 14:57 Pulse Rate 92 H 10/30/24 14:57 Respiratory Rate 16 10/30/24 14:57 Blood Pressure 162/92 H 10/30/24 14:57 Pulse Oximetry 100 10/30/24 14:57 Oxygen Delivery Method Room Air 10/30/24 14:57 Medical Decision Making MDM Narrative Medical decision making narrative: Patient notes pertinent history of POTS, states she will occasionally have actual syncopal episodes at home she noted some pain in her left arm yesterday from how she was laying and subsequently passed out. She denies any chest pain or discomfort denies shortness of breath. She reports feeling near syncopal today upon standing after vomiting 3 times at work experiencing nausea after trying a protein bar. She reports a normal bowel movement yesterday but she has been going every 2 to 3 days instead of every day like her normal. Patient be given 1 L IV fluids and 4 mg IV Zofran. Baseline labs will be obtained for electrolyte balance and CBC given recent finish her menses. Patient reevaluated, labs discussed. She was briefly hyperventilating noting that she wanted the IV removed from her arm she called with verbal reassurance. We discussed her symptoms of POTS which has been more long-term and more recent symptoms which may be related to anxiety or mental health. Patient notes she has been struggling with her mood and emotions since the passing of her baby 1 day in the NICU . She denies feeling depressed suicidal or homicidal. 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 We discussed the importance of ongoing follow-up to her PCP and potential further mental health counseling appointments to deal with her stress and potential anxiety. She received a liter IV fluids here and potassium was optimized with a 25 mill equivalent tablet. She is no longer nauseous. She is given a note to be off work this evening and we recommend follow-up to her family doctor. Patient has been proactive in including more salt in her diet and having healthy conversations with her boyfriend. She feels safe at home. Patient reports feeling better and we discussed her urinalysis and the importance to continue with fluids. She plans to go home and rest and was thankful for visit. Mental health counselor advised that the patient did not want to have any further follow-ups but patient aware that she can use them as an avenue to deal with her stress. The patient is to followup with primary care physician in next 2-3 days or to return to the emergency department should any of the signs or symptoms worsen or new symptoms develop. Patient had questions answered. The patient agrees with the following Diagnosis and Treatment plan and the patient will be discharged home. I, Dr Islas, have reviewed the above progress note and course of action in the ER; agree with the above. I have personally gone over history and physical, and discussed disposition and treatment plan with the PA. Lab Data Labs: Lab Results 10/30/24 10/30/24 Range/Units 15:17 16:35 WBC 9.5 (4.0-11.0) 10^3/uL RBC 4.43 (4.20-5.40) 10^6/uL Hgb 12.6 (12.0-16.0) g/dL Hct 37.1 (36.0-48.0) % MCV 83.7 (81.0-99.0) fL MCH 28.4 (26.7-34.0) pg MCHC 34.0 (29.9-35.2) g/dL RDW 12.8 (11.0-15.0) % Plt Count 341 (150-450) 10^3/uL MPV 11.0 (9.5-13.5) fL Neut % (Auto) 55.8 (43.0-75.0) % Lymph % (Auto) 38.1 (20.5-60.0) % [place] % (Auto) 5.1 (1.7-12.0) % Eos % (Auto) 0.3 L (0.9-7.0) % Baso % (Auto) 0.6 (0.2-2.0) % Neut # (Auto) 5.3 (1.4-6.5) 10^3/uL Lymph # (Auto) 3.6 (1.2-3.8) 10^3/uL [place] # (Auto) 0.5 (0.3-0.8) 10^3/uL Eos # (Auto) 0.0 (0.0-0.7) 10^3/uL Baso # (Auto) 0.1 (0.0-0.1) 10^3/uL Abs Immat Gran (auto) 0.01 (0.00-0.03) 10^3/uL Imm/Tot Granulo (auto) 0.1 (0.0-0.5) % Sodium 139 (136-145) mmol/L Potassium 3.2 L (3.5-5.1) mmol/L Chloride 103 (98-107) mmol/L Carbon Dioxide 24.0 (21.0-32.0) mmol/L Anion Gap 15.2 BUN 16.0 (7.0-18.0) mg/dL Creatinine 0.84 (0.55-1.02) mg/dL Est GFR ( Amer) >60 (>=60 mL/min/1.73m^2) Est GFR (Non-Af Amer) >60 (>=60 mL/min/1.73m^2) BUN/Creatinine Ratio 19.0 Glucose 90 (74-106) mg/dL Calcium 9.6 (8.5-10.1) mg/dL Total Bilirubin 0.4 (0.2-1.0) mg/dL AST 15 (15-37) U/L ALT 20 (14-59) U/L Alkaline Phosphatase 80 (46-116) U/L Total Protein 7.8 (6.4-8.2) g/dL Albumin 4.5 (3.4-5.0) g/dL Globulin 3.3 g/dL Albumin/Globulin Ratio 1.4 Lipase 29.0 (16.0-77.0) U/L Serum HCG, Qual Negative (NEGATIVE) Urine Color Lt. yellow (YELLOW) Urine Clarity Clear (CLEAR) Urine pH 6.0 (5.0-9.0) Ur Specific [place] 1.020 (1.005-1.025) Urine Protein Negative (NEG/TRACE) mg/dL Urine Glucose (UA) Negative (NEGATIVE) mg/dL Urine Ketones >=80 A (NEGATIVE) mg/dL Urine Occult Blood Negative (NEGATIVE) Urine Nitrite Negative (NEGATIVE) Urine Bilirubin Negative (NEGATIVE) Urine Urobilinogen 0.2 (0.2-1.0) EU/dL Ur Leukocyte Esterase Negative (NEGATIVE) Urine RBC 0-2 (0-2) #/HPF Urine WBC 0-2 A (NONE SEEN) #/HPF Ur Squamous Epith Cells Moderate A (NONE/RARE) #/LPF Urine Crystals None seen (None Seen) #/HPF Urine Bacteria Trace A (NONE SEEN) #/HPF Urine Casts None seen (NONE SEEN) #/LPF Urine Mucus Trace A (NONE SEEN) Ur Culture Indicated? No Discharge Plan Discharge Chief Complaint: Syncope Clinical Impression: Postural orthostatic tachycardia syndrome [POTS], Nausea & vomiting, Stress Patient Disposition: Home, Self-Care Time of Disposition Decision: 17:08 Condition: Good Prescriptions / Home Meds: No Action No Known Home Medications Print Language: Khmer Instructions: Potassium Content of Foods List (ED), Stress (ED), Acute Nausea and Vomiting (ED) Referrals: Fady Tsang MD [Primary Care Provider] - As soon as possible Discharge Date/Time: 10/30/24 17:20
--- OUTSIDE RECORDS SUMMARY | 2024-10-30 15:10 | XMS_ITS | CCD ---
Author Organization [facility] Care Team Providers Care Skein Yard Drier Name Role Phone MARKER ., DR STINSON [...] Unavailable Jesus Tsang MD Primary Care Provider [phone] Bladimir Martínezy Attending Unavailable Mauricio, Roosevelt Admitting Unavailable Jesus Tsang Primary Care Unavailable Mauricio, Roosevelt Attending Unavailable Mauricio, Roosevelt Admitting Unavailable MAURICIO, ROOSEVELT Attending Unavailable MAURICIO, ROOSEVELT Attending Unavailable SUSANA, AGATA Attending Unavailable MAURICIO, ROOSEVELT Attending Unavailable SUSANA, AGATA Attending Unavailable SUSANA, AGATA Attending Unavailable MAURICIO, ROOSEVELT Attending Unavailable SUSANA, AGATA Attending Unavailable SUSANA, AGATA Attending Unavailable MAURICIO, ROOSEVELT Attending Unavailable MAURICIO, ROOSEVELT Attending Unavailable MAURICIO, ROOSEVELT Attending Unavailable MAURICIO, ROOSEVELT Attending Unavailable SUSANA, AGATA Attending Unavailable Medications Completed/Discontinued Medications Medication Drug [...] [CHEST PAIN UNSPECIFIED] Onset: 09-18-2022 Episodic Other aftercare (2 sources) Surgical follow-up; Translations: [Encounter for follow-up examination after completed treatment for conditions other than malignant neoplasm] 08-01-2024 Episodic Other complications of (2 sources) size does not accord with dates; Translations: [Uterine size-date discrepancy, unspecified trimester] 04-27-2024 Episodic Other and delivery including normal (18 sources) Third trimester ; Translations: [Encounter for [...] system disorders (20 sources) History of [place] syndrome; Translations: [Personal history of other diseases [...] 13.5 % 11.0 - 15.0 % [facility] Hematocrit (Bld) [Volume fraction] 34.2 % Low 36.0 - 48.0 % [facility] Hemoglobin (Bld) [Mass/Vol] 11.2 g/dL Low 12.0 - 16.0 g/dL [facility] Interpretation and review of laboratory results Abnormal [facility] MCH (RBC) [Entitic mass] 28.2 pg 26.7 - 34.0 pg [facility] MCHC (RBC) [Mass/Vol] 32.7 g/dL 29.9 - 35.2 g/dL [facility] MCV (RBC) [Entitic vol] 86.1 fL 81.0 - 99.0 fL [facility] Platelet mean volume (Bld) [Entitic vol] 11.5 fL 9.5 - 13.5 fL [facility] TBH PLT 302 [facility] TBH RBC 3.97 Low [facility] TBH WBC 24.5 High [facility] Fetaldex / Kleihauer Betkeon 07-13-2024 [facility] Betke Ratio 0.0020 Ratio Normal [facility] Comment on above: Result Comment: PERF ORMED BY: [facility] [address] [address] PATHOLOGIST DAIRY WORKER DANICA Newman 07-12-2024 L -- ---- Specimen: [id number] Received: 07/14/24 Status: YANNA Beard Num: [id number] Spec Type: Surgical Subm Dr: Roosevelt Martínez Tissues: A Placenta - 3rd Trimester (Greater than 28 weeks) (PLACENTA) Procedures: HE/3, Gross/Micro L5 ---- Age/ Patient Sex Location Account Attending Physician ---- Latha Cuevas LABELL [id number] Roosevelt Martínez ---- SPEC NUM: [id number] RECD: 07/14/24 STATUS: YANNA BEARD NUM: [id number] YOUNG: 07/12/24- SUBM DR: Roosevelt Martínez ENTERED: 07/14/[address]: Glenda,Lab SPEC TYPE: Surgical DEPT: DORA ANDERS ENTERED BY: [id number] RECV BY: [id number] ORDERED: HE/3, Gross/Micro L5 ORDERED: HE/3, Gross/Micro L5 Pathological Diagnosis Placental removal, spontaneous [...] date of : Single MEMBRANES: ---- Specimen: [id number] Received: 07/14/24 Status: YANNA Beard Num: [id number] Spec Type: Surgical Subm Dr: Roosevelt Martínez Tissues: A Placenta - 3rd Trimester (Greater than 28 weeks) (PLACENTA) Procedures: HE/3, Gross/Micro L5 ---- Patient: Latha Cuevas [id number] (Continued) ---- Specimen: [id number] Received: 07/14/24 (Continued) Gross Description (Continued) Signed (signature on file) Alfonso Cali MD 07/18/24 1754 ---- Specimen: [id number] Received: 07/14/24 Status: YANNA Beard Num: [id number] Spec Type: Surgical Subm Dr: Roosevelt Martínez Tissues: A Placenta - 3rd Trimester (Greater than 28 weeks) (PLACENTA) Procedures: HE/3, Gross/Micro L5 ---- Patient: Latha Cuevas [id number] (Continued) ---- Specimen: [id number] Received: 07/14/24-1325 (Continued) Gross Description (Continued) Placenta Sac Rupture [...] Rolled membrane, two sections of cord A2-A3 Landscape Architecture Teacher sections of placenta (3, ss, [id number] A) JG Microscopic Description Microscopic examinations are performed supporting the above interpretation CPT Codes 37436 ---- ---- Specimen: [id number] Received: 07/14/24-1326 Status: YANNA Chirag Num: [id number] Spec Type: Surgical Subm Dr: Roosevelt Martínez Tissues: A Placenta - 3rd Trimester (Greater (more content not included)... Normal [facility] CBC WITH PLATELET NO DI FFERENTIALon 07-11-2024 Erythrocyte distribution width (RBC) [Ratio] 13.3 % 11.0 - 15.0 % [facility] Hematocrit (Bld) [Volume fraction] 32 % Low 36.0 - 48.0 % [facility] Hemoglobin (Bld) [Mass/Vol] 10.6 g/dL Low 12.0 - 16.0 g/dL [facility] Interpretation and review of laboratory results Abnormal [facility] MCH (RBC) [Entitic mass] 28.1 pg 26.7 - 34.0 pg [facility] MCHC (RBC) [Mass/Vol] 33.1 g/dL 29.9 - 35.2 g/dL [facility] MCV (RBC) [Entitic vol] 84.9 fL 81.0 - 99.0 fL [facility] Platelet mean volume (Bld) [Entitic vol] 12 fL 9.5 - 13.5 fL [facility] TBH PLT 296 [facility] TBH RBC 3.77 Low [facility] TB WBC 13.1 High [facility] Urinalysis macro (dipstick) panel (U)on 06-29-2024 Bilirubin, UA Negative Negative - 4(70) +++ mg/dL [facility] Blood, UA Negative Negative - 50 Gabriele/mcL [facility] Clarity, UA Clear [facility] Color, UA Yellow [facility] Glucose, UA Negative Negative - 1999(110) ++++ mg/dL [facility] Interpretation and review of laboratory results Abnormal [facility] Ketones, UA Negative Negative - 160(16) ++++ mg/dL [facility] Leukocytes, UA Negative Negative - 500+++ Alexsandra/mcL [facility] Nitrite, UA Negative Negative - Positive [facility] pH, UA 6.5 5 - 9 [facility] Healthcare Protein, UA Negative Negative - 1999(20) ++++ mg/dL [facility] Spec Grav, UA 1.02 1 - 1.03 [facility] Urobilinogen, UA 1.0 0.2 - 12 mg/dL [facility] Urinalysis macro (dipstick) panel (U)Ordered By: Amarilis Oden on 06-22-2024 Bilirubin, UA Negative Negative - 4(70) +++ mg/dL [facility] Blood, UA Positive Negative - 50 Gabriele/mcL [facility] Healthcare Comment on above: trace-intact Clarity, UA Clear [facility] Color, UA Yellow [facility] Glucose, UA Negative Negative - 1999(110) ++++ mg/dL [facility] Interpretation and review of laboratory results Abnormal [facility] Ketones, UA Negative Negative - 160(16) ++++ mg/dL [facility] Leukocytes, UA Positive Negative - 500+++ Alexsandra/mcL [facility] Healthcare Comment on above: large Nitrite, UA Negative Negative - Positive [facility] pH, UA 6 5 - 9 [facility] Protein, UA Negative Negative - 1999(20) ++++ mg/dL [facility] Spec Grav, UA 1.025 1 - 1.03 [facility] Urobilinogen, UA 0.2 0.2 - 12 mg/dL [facility] Urinalysis macro (dipstick) panel (U)on 06-14-2024 Bilirubin, UA Negative Negative - 4(70) +++ mg/dL [facility] Blood, UA Positive Negative - 50 Gabriele/mcL [facility] Healthcare Comment on above: trace Clarity, UA Clear [facility] Color, UA Yellow [facility] Glucose, UA Negative Negative - 1999(110) ++++ mg/dL [facility] Interpretation and review of laboratory results Abnormal [facility] Ketones, UA Negative Negative - 160(16) ++++ mg/dL [facility] Leukocytes, UA Trace Negative - 500+++ Alexsandra/mcL [facility] Nitrite, UA Negative Negative - Positive [facility] pH, UA 6.5 5 - 9 [facility] Protein, UA Trace Negative - 1999(20) ++++ mg/dL [facility] Spec Grav, UA 1.025 1 - 1.03 [facility] Urobilinogen, UA 1.0 0.2 - 12 mg/dL [facility] Urinalysis macro (dipstick) panel (U)on 06-07-2024 Bilirubin, UA Negative Negative - 4(70) +++ mg/dL [facility] Blood, UA Negative Negative - 50 Gabriele/mcL [facility] Clarity, UA Clear [facility] Color, UA Yellow [facility] Glucose, UA Negative Negative - 1999(110) ++++ mg/dL [facility] Interpretation and review of laboratory results Abnormal [facility] Ketones, UA Positive Negative - 160(16) ++++ mg/dL [facility] Comment on above: trace Leukocytes, UA Negative Negative - 500+++ Alexsandra/mcL [facility] Nitrite, UA Negative Negative - Positive [facility] pH, UA 7 5 - 9 [facility] Protein, UA Negative Negative - 1999(20) ++++ mg/dL [facility] Spec Grav, UA 1.025 1 - 1.03 [facility] Urobilinogen, UA 0.2 0.2 - 12 mg/dL [facility] Urinalysis macro (dipstick) panel (U)on 05-24-2024 Bilirubin, UA Negative Negative - 4(70) +++ mg/dL [facility] Blood, UA Positive Negative - 50 Gabriele/mcL [facility] Comment on above: trace Clarity, UA Clear [facility] Color, UA Yellow [facility] Glucose, UA Negative Negative - 1999(110) ++++ mg/dL [facility] Interpretation and review of laboratory results Abnormal [facility] Ketones, UA Negative Negative - 160(16) ++++ mg/dL [facility] Leukocytes, UA Positive Negative - 500+++ Alexsandra/mcL [facility] Comment on above: small Nitrite, UA Negative Negative - Positive [facility] pH, UA 7 5 - 9 [facility] Protein, UA Negative Negative - 1999(20) ++++ mg/dL [facility] Spec Grav, UA 1.02 1 - 1.03 [facility] Urobilinogen, UA 0.2 0.2 - 12 mg/dL [facility] Urinalysis macro (dipstick) panel (U)on 05-10-2024 Bilirubin, UA Negative Negative - 4(70) +++ mg/dL [facility] Blood, UA Positive Negative - 50 Gabriele/mcL [facility] Comment on above: trace-intact Clarity, UA Clear [facility] Color, UA Yellow [facility] Glucose, UA Negative Negative - 1999(110) ++++ mg/dL [facility] Interpretation and review of laboratory results Abnormal [facility] Ketones, UA Positive Negative - 160(16) ++++ mg/dL [facility] Comment on above: 15 Leukocytes, UA Negative Negative - 500+++ Alexsandra/mcL [facility] Nitrite, UA Negative Negative - Positive [facility] pH, UA 7 5 - 9 [facility] Protein, UA Negative Negative - 1999(20) ++++ mg/dL [facility] Spec Grav, UA 1.025 1 - 1.03 [facility] Urobilinogen, UA 0.2 0.2 - 12 mg/dL [facility] Urinalysis macro (dipstick) panel (U)on 04-27-2024 Bilirubin, UA Positive Negative - 4(70) +++ mg/dL [facility] Comment on above: small Blood, UA Positive Negative - 50 Gabriele/mcL [facility] Comment on above: large Clarity, UA Clear [facility] Color, UA Gay [facility] Glucose, UA Negative Negative - 1999(110) ++++ mg/dL [facility] Interpretation and review of laboratory results Abnormal [facility] Ketones, UA Positive Negative - 160(16) ++++ mg/dL [facility] Comment on above: 40 mg Leukocytes, UA Positive Negative - 500+++ Alexsandra/mcL [facility] Comment on above: small Nitrite, UA Negative Negative - Positive [facility] pH, UA 5.5 5 - 9 [facility] Protein, UA Positive Negative - 2000(20) ++++ mg/dL [facility] Comment on above: 30 mg Spec Grav, UA 1.030 1 - 1.03 [facility] Urobilinogen, UA 1.0 0.2 - 12 mg/dL [facility] ALL CBC WITH AUTO DIFFon BASOPHILS ABSOLUTE AUTO 0.0 [facility] Basophils/100 WBC (Bld) 0.4 % 0.2 - 2.0 % [facility] Eosinophils/100 WBC (Bld) 0.3 % Low 0.9 - 7.0 % [facility] Erythrocyte distribution width (RBC) [Ratio] 12.6 % 11.0 - 15.0 % [facility] Hematocrit (Bld) [Volume fraction] 32.0 % Low 36.0 - 48.0 % [facility] Hemoglobin (Bld) [Mass/Vol] 10.9 g/dL Low 12.0 - 16.0 g/dL [facility] IMMATURE GRANULOCYTES ABS AUTO 0.03 [facility] Immature granulocytes/100 WBC (Bld) 0.3 % 0.0 - 0.5 % [facility] Interpretation and review of laboratory results Abnormal [facility] LYMPHOCYTES ABSOLUTE AUTO 1.9 [facility] Lymphocytes/100 WBC (Bld) 20.2 % Low 20.5 - 60.0 % [facility] MCH (RBC) [Entitic mass] 30.4 pg 26.7 - 34.0 pg [facility] MCHC (RBC) [Mass/Vol] 34.1 g/dL 29.9 - 35.2 g/dL [facility] MCV (RBC) [Entitic vol] 89.1 fL 81.0 - 99.0 fL [facility] MONOCYTES ABSOLUTE AUTO 0.4 [facility] Monocytes/100 WBC (Bld) 4.3 % 1.7 - 12.0 % [facility] NEUTROPHILS ABSOLUTE AUTO 7.0 High [facility] Neutrophils/100 WBC (Bld) 74.5 % 43.0 - 75.0 % [facility] Platelet mean volume (Bld) [Entitic vol] 11.4 fL 9.5 - 13.5 fL [facility] TBH EO # 0.0 [facility] TBH PLT 229 [facility] TB RBC 3.59 Low [facility] TBH WBC 9.4 [facility] Urinalysis macro (dipstick) panel (U)on 03-30-2024 Bilirubin, UA Negative Negative - 4(70) +++ mg/dL [facility] Blood, UA Negative Negative - 50 Gabriele/mcL [facility] Clarity, UA Clear [facility] Color, UA Yellow [facility] Glucose, UA Negative Negative - 1999(110) ++++ mg/dL [facility] Interpretation and review of laboratory results Abnormal [facility] Ketones, UA Positive Negative - 160(16) ++++ mg/dL [facility] Leukocytes, UA Negative Negative - 500+++ Alexsandra/mcL [facility] Nitrite, UA Negative Negative - Positive [facility] pH, UA 5.5 5 - 9 [facility] Protein, UA Negative Negative - 1999(20) ++++ mg/dL [facility] Spec Grav, UA 1.030 1 - 1.03 [facility] Urobilinogen, UA 0.2 0.2 - 12 mg/dL [facility] AFP, SERUM, OPEN SPINA BIFID Aon 03-16-2024 AFP MOM 1.19 . [facility] AFP VALUE 75.0 ng/mL . [facility] COMMENT: Comment . [facility] Comment on above: Josephine Ortiz , Ph.D., [facility] Director References: Available Upon Request. Multiples Of Median Cutoffs For AFP Elevations Blanca 2.5 Black 2.8 IDD 2.0 Twins 4.5 Abbreviation Definitions IDD - Insulin Dep Diabetes OSBR - Open Spina Bifida Risk For further inquiries contact [facility] at [phone]. This test was developed and its performance characteristics determined by [employer]. It has not been cleared or approved by the Food and Drug Administration. Performed at: [facility] [address] [place], [place] [id number] Melter Supervisor [employer]: Ginna Hawley [facility], Phone: [phone] GEST. AGE ON COLLECTION DATE 21.6 . weeks [facility] GESTAT. AGE BASED ON LMP . [facility] Comment on above: Recalculations are n ot recommended when gestational dating by LMP and ultrasound are within 10 days. INSULIN DEP DIABETES No . [facility] INTERPRETATION Comment . [facility] Comment on above: Interpretation: Scre en [...] Customer Services to discuss available options. The [employer] recommends amniocentesis be offered to women age 35 and older. [age] [facility] MULTIPLE GESTATION No . [facility] OSBR RISK 1 IN 4 . [facility] RACE . [facility] RESULTS Report . [facility] TEST RESULTS: Negative . [facility] WEIGHT 171 . lbs [facility] N N LMP [id number] 1 17 N 1 Y 171 N N N N N White/ [facility] Cytology Cervical or vaginal smear or scraping studyon 04-21-2023 [facility] CARDIAC BRAIN ADMITon 023 CK [Catalytic activity/Vol] 102 U/L Normal 26-192 [facility] Comment on above: Performed By: #### C BC #### [facility] [address] [place] [address] Dr. Michelle Cali CK.MB [Mass/Vol] 0.74 ng/mL Normal <=3.60 [facility] Comment on above: Performed By: #### C BC #### [facility] [address] [place] [address] Dr. Michelle Cali HSTROP 7.7 pg/mL Normal 4.0-51.3 [facility] Comment on above: Result Comment: CUT- OFF POINTS HAVE BEEN ESTABLISHED BASED ON THE FOURTH UNIVERSAL DEFINITIONS OF MYOCARDIAL INFARCTION. THE UPPER REFERENCE LIMIT (URL) OF TROPONIN, DEFINED THE 99TH PERCENTILE OF cTnI DISTRIBUTION IN A REFERENCE POPULATION, HAS BEEN CONFIRMED THE DECISION THRESHOLD FOR MA DIAGNOSIS. Performed By: #### C BC #### [facility] [address] [address] [address] Michelle Cali SHAHNAZ 24 ng/mL Normal 9-82 [facility] Comment on above: Performed By: #### C BC #### [facility] [address] [address] [address] Michelle Cali CBC AUTO DIFFon 12-04-2022 BASO # 0.1 103/ul Normal 0.0-0.1 [facility] Comment on above: Performed By: #### C BC #### [facility] [address] [place] [address] Dr. Michelle Cali Basophils/100 WBC (Bld) 0.9 % Normal 0.2-2.0 [facility] Comment on above: Performed By: #### C BC #### [facility] [address] [place] [address] Dr. Michelle Cali EO # 0.1 103/ul Normal 0.0-0.7 [facility] Comment on above: Performed By: #### C BC #### [facility] [address] [place] [address] Dr. Michelle Cali Eosinophils/100 WBC (Bld) 0.6 % Critically low 0.9-7.0 [facility] Comment on above: Performed By: #### C BC #### [facility] [address] [place] [address] Dr. Michelle Cali Erythrocyte distribution width (RBC) [Ratio] 12.3 % Normal 11.0-15.0 [facility] Comment on above: Performed By: #### C BC #### [facility] [address] [place] [address] Dr. Michelle Cali Hematocrit (Bld) [Volume fraction] 40.3 % Normal 36.0-48.0 [facility] Comment on above: Performed By: #### C BC #### [facility] [address] [place] [address] Dr. Michelle Cali Hemoglobin (Bld) [Mass/Vol] 13.2 g/dL Normal 12.0-16.0 [facility] Comment on above: Performed By: #### C BC #### [facility] [address] [place] [address] Dr. Michelle Cali IG # 0.03 10e3/ul Normal 0.00-0.03 [facility] Comment on above: Performed By: #### C BC #### [facility] [address] [place] [address] Dr. Michelle Cali IG % 0.3 % Normal 0.0-0.5 [facility] Comment on above: Performed By: #### C BC #### [facility] [address] [place] [address] Dr. Michelle Cali LYMPH # 4.1 103/ul Critically high 1.2-3.8 [facility] Comment on above: Performed By: #### C BC #### [facility] [address] [place] [address] Dr. Michelle Cali Lymphocytes/100 WBC (Bld) 39.9 % Normal 20.5-60.0 [facility] Comment on above: Performed By: #### C BC #### [facility] [address] [place] [address] Dr. Michelle Cali MANUAL DIFF REQ NO Normal [facility] Comment on above: Performed By: #### C BC #### [facility] [address] [place] [address] Dr. Michelle Cali MCH (RBC) [Entitic mass] 29.8 pg Normal 26.7-34.0 [facility] Comment on above: Performed By: #### C BC #### [facility] [address] [place] [address] Dr. Michelle Cali MCHC (RBC) [Mass/Vol] 32.8 g/dL Normal 29.9-35.2 [facility] Comment on above: Performed By: #### C BC #### [facility] [address] [place] [address] Dr. Michelle Cali MCV (RBC) [Entitic vol] 91.0 fL Normal 81.0-99.0 [facility] Comment on above: Performed By: #### C BC #### [facility] [address] [place] [address] Dr. Michelle Cali MONO # 0.5 103/ul Normal 0.3-0.8 [facility] Comment on above: Performed By: #### C BC #### [facility] [address] [place] [address] Dr. Michelle Cali Monocytes/100 WBC (Bld) 5.2 % Normal 1.7-12.0 [facility] Comment on above: Performed By: #### C BC #### [facility] [address] [place] [address] Dr. Michelle Cali NEUT # 5.4 103/ul Normal 1.4-6.5 [facility] Comment on above: Performed By: #### C BC #### [facility] [address] [place] [address] Dr. Michelle Cali Neutrophils/100 WBC (Bld) 53.1 % Normal 43.0-75.0 [facility] Comment on above: Performed By: #### C BC #### [facility] [address] [place] [address] Dr. Michelle Cali Platelet mean volume (Bld) [Entitic vol] 10.6 fL Normal 9.5-13.5 [facility] Comment on above: Performed By: #### C BC #### [facility] [address] [place] [address] Dr. Michelle Cali PLT 310 103/ul Normal 150-450 [facility] Comment on above: Performed By: #### C BC #### [facility] [address] [place] [address] Dr. Michelle Cali RBC 4.43 106/ul Normal 4.20-5.40 [facility] Comment on above: Performed By: #### C BC #### [facility] [address] [place] [address] Dr. Michelle Cali WBC 10.2 103/ul Normal 4.0-11.0 [facility] Comment on above: Performed By: #### C BC #### [facility] [address] [place] [address] Dr. Michelle Cali D-DIMERon 12-04-2022 D-DIMER 0.19 mg/L FEU Normal <=0.59 [facility] Comment on above: Performed By: #### C BC #### [facility] [address] [place] [address] Dr. Michelle Cali D-DIMER COMMENTS SEE BELOW Normal [facility] Comment on above: Result Comment: Incr [...] hospitalization. Performed By: #### C BC #### [facility] [address] [place] [address] Dr. Michelle Cali ER URINE PROFILEon 3 Bilirubin Ql (U) Negative Normal NEGATIVE [facility] Comment on above: Performed By: #### P REGU, ERUR #### [facility] [address] [place] [address] Dr. Michelle Cali Clarity (U) CLEAR Normal CLEAR [facility] Comment on above: Performed By: #### P REGU, ERUR #### [facility] [address] [place] [address] Dr. Michelle Cali Color (U) YELLOW Normal YELLOW [facility] Comment on above: Performed By: #### P REGU, ERUR #### [facility] [address] [place] [address] Dr. Michelle FRITZ A micrscopic examination will be performed if indicated. Normal [facility] Comment on above: Performed By: #### P REGU, ERUR #### [facility] [address] [place] [address] Dr. Michelle Cali Glucose Ql (U) Negative Normal NEGATIVE [facility] Comment on above: Performed By: #### P REGU, ERUR #### [facility] [address] [place] [address] Dr. Michelle Cali Hemoglobin Ql (U) Negative Normal NEGATIVE [facility] Comment on above: Performed By: #### P REGU, ERUR #### [facility] [facility] [address] [place] [address] Dr. Michelle Cali Ketones Ql (U) Negative Normal NEGATIVE [facility] Comment on above: Performed By: #### P REGU, ERUR #### [facility] [address] [place] [address] Dr. Michelle Cali LEUKOCYTES Negative Normal NEGATIVE [facility] Comment on above: Performed By: #### P REGU, ERUR #### [facility] [address] [place] [address] Dr. Michelle Cali Nitrite Ql (U) Negative Normal NEGATIVE [facility] Comment on above: Performed By: #### P REGU, ERUR #### [facility] [address] [place] [address] Dr. Michelle Cali pH (U) 6.0 [pH] Normal 5-9 [facility] Comment on above: Performed By: #### P REGU, ERUR #### [facility] [address] [place] [address] Dr. Michelle Cali SPEC GRAVITY >=1.030 Abnormal 1.005-<=1.025 [facility] Comment on above: Performed By: #### P REGU, ERUR #### [facility] [address] [place] [address] Dr. Michelle Cali UA PROTEIN TRACE Normal NEGATIVE/ TRACE [facility] Comment on above: Performed By: #### P REGU, ERUR #### [facility] [address] [place] [address] Dr. Michelle Cali UR MICRO IND NOT INDICATED Normal [facility] Comment on above: Performed By: #### P REGU, ERUR #### [facility] [address] [place] [address] Dr. Michelle Cali Urobilinogen Qn (U) 0.2 {Kalyan'U}/dL Normal 0.2 - 1. 0 [facility] Comment on above: Performed By: #### P REGU, ERUR #### [facility] [address] [place] [address] Dr. Michelle Cali URon 12-04-2022 , QUAL Negative Normal NEGATIVE [facility] Comment on above: Performed By: #### P REGU, ERUR #### [facility] [address] [address] [address] Michelle Cali PROF 14(COMP METB)on 023 Albumin [Mass/Vol] 3.9 g/dL Normal 3.4-5.0 [facility] Comment on above: Performed By: #### C BC #### [facility] [address] [place] [address] Dr. Michelle Cali Albumin/Globulin [Mass ratio] 1.0 {ratio} Normal [facility] Comment on above: Performed By: #### C BC #### [facility] [address] [place] [address] Dr. Michelle Cali ALP [Catalytic activity/Vol] 69 U/L Normal 46-116 [facility] Comment on above: Performed By: #### C BC #### [facility] [address] [place] [address] Dr. Michelle Cali ALT [Catalytic activity/Vol] 13 U/L Critically low 14-59 [facility] Comment on above: Performed By: #### C BC #### [facility] [address] [place] [address] Dr. Michelle Cali Anion gap [Moles/Vol] 13.6 mmol/L Normal [facility] Comment on above: Performed By: #### C BC #### [facility] [address] [place] [address] Dr. Michelle Cali AST [Catalytic activity/Vol] 11 U/L Critically low 15-37 [facility] Comment on above: Performed By: #### C BC #### [facility] [address] [place] [address] Dr. Michelle Cali Bilirubin [Mass/Vol] 0.3 mg/dL Normal 0.2-1.0 [facility] Comment on above: Performed By: #### C BC #### [facility] [address] [place] [address] Dr. Michelle Cali Calcium [Mass/Vol] 9.0 mg/dL Normal 8.5-10.1 [facility] Comment on above: Performed By: #### C BC #### [facility] [address] [address] [address] Michelle Cali Chloride [Moles/Vol] 105 mmol/L Normal 98-107 [facility] Comment on above: Performed By: #### C BC #### [facility] [address] [place] [address] Dr. Michelle Cali CO2 [Moles/Vol] 26.8 mmol/L Normal 21.0-32.0 [facility] Comment on above: Performed By: #### C BC #### [facility] [address] [place] [address] Dr. Michelle Cali Creatinine [Mass/Vol] 0.82 mg/dL Normal 0.55-1.02 [facility] Comment on above: Performed By: #### C BC #### [facility] [address] [place] [address] Dr. Michelle Cali EGFR-AF EGYPTIAN >60 Normal >=60 [facility] Comment on above: Performed By: #### C BC #### [facility] [address] [place] [address] Dr. Michelle Cali EGFR-NON AF EGYPTIAN >60 Normal >=60 [facility] Comment on above: Performed By: #### C BC #### [facility] [address] [address] [address] Michelle Cali Globulin (S) [Mass/Vol] 3.8 g/dL Normal [facility] Comment on above: Performed By: #### C BC #### [facility] [address] [place] [address] Dr. Michelle Cali Glucose [Mass/Vol] 104 mg/dL Normal 74-106 [facility] Comment on above: Performed By: #### C BC #### [facility] [address] [address] [address] Michelle Cali Potassium [Moles/Vol] 3.4 mmol/L Critically low 3.5-5.1 [facility] Comment on above: Performed By: #### C BC #### [facility] [address] [address] [address] Michelle Cali Protein [Mass/Vol] 7.7 g/dL Normal 6.4-8.2 [facility] Comment on above: Performed By: #### C BC #### [facility] [address] [place] [address] Dr. Michelle Cali Sodium [Moles/Vol] 142 mmol/L Normal 136-145 [facility] Comment on above: Performed By: #### C BC #### [facility] [address] [place] [address] Dr. Michelle Cali Urea nitrogen [Mass/Vol] 9.0 mg/dL Normal 7.0-18.0 [facility] Comment on above: Performed By: #### C BC #### [facility] [address] [place] [address] Dr. Michelle Cali Urea nitrogen/Creatinine [Mass ratio] 11.0 mg/mg Normal [facility] Comment on above: Performed By: #### C BC #### [facility] [address] [place] [address] Dr. Michelle Cali TSHon 12-04-2022 TSH 6.358 uIU/mL Critically high 0.358-3.740 [facility] Comment on above: Performed By: #### C BC #### [facility] [address] [place] [address] Dr. Michelle Cali INSULINon 09-19-2022 Insulin 6.8 uIU/mL Normal 2.6-24.9 [facility] Comment on above: Performed By: #### C BC #### [facility] [address] [place] [address] Dr. Michelle Cali CBC AUTO DIFFon 09-18-2022 BASO # 0.1 103/ul Normal 0.0-0.1 [facility] Comment on above: Performed By: #### C BC #### [facility] [address] [place] [address] Dr. Michelle Cali Basophils/100 WBC (Bld) 0.8 % Normal 0.2-2.0 [facility] Comment on above: Performed By: #### C BC #### [facility] [address] [place] [address] Dr. Michelle Cali EO # 0.1 103/ul Normal 0.0-0.7 [facility] Comment on above: Performed By: #### C BC #### [facility] [address] [place] [address] Dr. Michelle Cali Eosinophils/100 WBC (Bld) 0.8 % Critically low 0.9-7.0 [facility] Comment on above: Performed By: #### C BC #### [facility] [address] [place] [address] Dr. Michelle Cali Erythrocyte distribution width (RBC) [Ratio] 12.4 % Normal 11.0-15.0 [facility] Comment on above: Performed By: #### C BC #### [facility] [address] [place] [address] Dr. Michelle Cali Hematocrit (Bld) [Volume fraction] 41.6 % Normal 36.0-48.0 [facility] Comment on above: Performed By: #### C BC #### [facility] [address] [place] [address] Dr. Michelle Cali Hemoglobin (Bld) [Mass/Vol] 14.3 g/dL Normal 12.0-16.0 [facility] Comment on above: Performed By: #### C BC #### [facility] [address] [place] [address] Dr. Michelle Cali IG # 0.03 10e3/ul Normal 0.00-0.03 [facility] Comment on above: Performed By: #### C BC #### [facility] [address] [place] [address] Dr. Michelle Cali IG % 0.3 % Normal 0.0-0.5 [facility] Comment on above: Performed By: #### C BC #### [facility] [address] [place] [address] Dr. Michelle Cali LYMPH # 3.1 103/ul Normal 1.2-3.8 [facility] Comment on above: Performed By: #### C BC #### [facility] [address] [place] [address] Dr. Michelle Cali Lymphocytes/100 WBC (Bld) 32.8 % Normal 20.5-60.0 [facility] Comment on above: Performed By: #### C BC #### [facility] [address] [place] [address] Dr. Michelle Cali MANUAL DIFF REQ NO Normal [facility] Comment on above: Performed By: #### C BC #### [facility] [address] [place] [address] Dr. Michelle Cali MCH (RBC) [Entitic mass] 29.5 pg Normal 26.7-34.0 [facility] Comment on above: Performed By: #### C BC #### [facility] [address] [place] [address] Dr. Michelle Cali MCHC (RBC) [Mass/Vol] 34.4 g/dL Normal 29.9-35.2 [facility] Comment on above: Performed By: #### C BC #### [facility] [address] [place] [address] Dr. Michelle Cali MCV (RBC) [Entitic vol] 86.0 fL Normal 81.0-99.0 [facility] Comment on above: Performed By: #### C BC #### [facility] [address] [place] [address] Dr. Michelle Cali MONO # 0.5 103/ul Normal 0.3-0.8 [facility] Comment on above: Performed By: #### C BC #### [facility] [address] [place] [address] Dr. Michelle Cali Monocytes/100 WBC (Bld) 5.6 % Normal 1.7-12.0 [facility] Comment on above: Performed By: #### C BC #### [facility] [address] [place] [address] Dr. Michelle Cali NEUT # 5.7 103/ul Normal 1.4-6.5 [facility] Comment on above: Performed By: #### C BC #### [facility] [address] [place] [address] Dr. Michelle aCli Neutrophils/100 WBC (Bld) 59.7 % Normal 43.0-75.0 [facility] Comment on above: Performed By: #### C BC #### [facility] [address] [address] [address] Michelle Cali Platelet mean volume (Bld) [Entitic vol] 10.3 fL Normal 9.5-13.5 [facility] Comment on above: Performed By: #### C BC #### [facility] [address] [address] [address] Michelle Cali PLT 319 103/ul Normal 150-450 [facility] Comment on above: Performed By: #### C BC #### [facility] [address] [address] [address] Michelle Cali RBC 4.84 106/ul Normal 4.20-5.40 [facility] Comment on above: Performed By: #### C BC #### [facility] [address] [place] [address] Dr. Michelle Cali WBC 9.5 103/ul Normal 4.0-11.0 [facility] Comment on above: Performed By: #### C BC #### [facility] [address] [address] [address] Michelle Cali FREE THYROXINE INDEX T7on FTI 2.36 Normal 1.30-4.50 [facility] Comment on above: Performed By: #### T SH, CMP, T7, LIPID #### [facility] [address] [place] [address] Dr. Michelle Cali T3U 31.0 % Normal 30.0-39.0 [facility] Comment on above: Performed By: #### T SH, CMP, T7, LIPID #### [facility] [address] [address] [address] Michelle Cali T4 [Mass/Vol] 7.60 ug/dL Normal 4.80-13.90 [facility] Comment on above: Performed By: #### T SH, CMP, T7, LIPID #### [facility] [address] [place] [address] Dr. Michelle Cali GLYCOHEMOGLOBIN A1Con 2022 ADA RECOMMENDATION SEE BELOW Normal [facility] Comment on above: Result Comment: ADA RECOMMENDED LIMIT 4.0 - 6.0 ADA THERAPEUTIC TARGET < 7.0 ACTION SUGGESTED > 7.0 Performed By: #### C BC #### [facility] [address] [place] [address] Dr. Michelle Cali Glucose [Mass/Vol] 105 mg/dL Normal [facility] Comment on above: Performed By: #### C BC #### [facility] [address] [address] [address] Michelle Cali HbA1c (Bld) [Mass fraction] 5.3 % Normal 4.5-6.2 [facility] Comment on above: Performed By: #### C BC #### [facility] [address] [place] [address] Dr. Michelle Cali IRONon 09-18-2022 Iron [Mass/Vol] 80.0 ug/dL Normal 50.0-170.0 [facility] Comment on above: Performed By: #### I ABIGAIL #### [facility] [address] [place] [address] Dr. Michelle Cali LIPID PROFILEon 09-18-2022 CHOL-HDL RATIO NORM SEE BELOW Normal [facility] Comment on above: Result Comment: 3.3 - 4.4 LOW RISK 4.4 - 7.1 AVERAGE RISK 7.1 - 11.0 MODERATE RISK >11.0 HIGH RISK Performed By: #### T SH, CMP, T7, LIPID #### [facility] [address] [place] [address] Dr. Michelle Cali Cholesterol [Mass/Vol] 175 mg/dL Normal <=200 [facility] Comment on above: Performed By: #### T SH, CMP, T7, LIPID #### [facility] [address] [place] [address] Dr. Michelle Cali Cholesterol in HDL [Mass/Vol] 72 mg/dL Critically high 40-60 [facility] Comment on above: Performed By: #### T SH, CMP, T7, LIPID #### [facility] [address] [place] [address] Dr. Michelle Cali Cholesterol in LDL [Mass/Vol] 85.8 mg/dL Normal [facility] Comment on above: Performed By: #### T SH, CMP, T7, LIPID #### [facility] [address] [place] [address] Dr. Michelle Cali Cholesterol.total/Ch olesterol in HDL [Mass ratio] 2.4 {ratio} Normal [facility] Comment on above: Performed By: #### T SH, CMP, T7, LIPID #### [facility] [address] [place] [address] Dr. Michelle Cali HDL NORMAL > or = 60 mg/dl - LO W CARDIOVASCULAR RISK <40 mg/dl - HIGH CARDIOVASCULAR RISK Normal [facility] Comment on above: Performed By: #### T SH, CMP, T7, LIPID #### [facility] [address] [place] [address] Dr. Michelle Cali LDL CALC NORMAL SEE BELOW Normal [facility] Comment on above: Result Comment: <100 mg/dl OPTIMAL 100 - 129 mg/dl NEAR OR ABOVE OPTIMAL 130 - 159 mg/dl BORDERLINE HIGH 160 - 189 mg/dl HIGH >190 mg/dl VERY HIGH Performed By: #### T SH, CMP, T7, LIPID #### [facility] [address] [place] [address] Dr. Michelle Cali Triglyceride [Mass/Vol] 86 mg/dL Normal <=150 [facility] Comment on above: Performed By: #### T SH, CMP, T7, LIPID #### [facility] [address] [place] [address] Dr. Michelle Cali VLDL CALC 17.2 mg/dL Normal [facility] Comment on above: Performed By: #### T SH, CMP, T7, LIPID #### [facility] [address] [place] [address] Dr. Michelle Cali PROF 14(COMP METB)on 023 Albumin [Mass/Vol] 4.3 g/dL Normal 3.4-5.0 [facility] Comment on above: Performed By: #### T SH, CMP, T7, LIPID #### [facility] [address] [place] [address] Dr. Michelle Cali Albumin/Globulin [Mass ratio] 1.0 {ratio} Normal [facility] Comment on above: Performed By: #### T SH, CMP, T7, LIPID #### [facility] [address] [place] [address] Dr. Michelle Cali ALP [Catalytic activity/Vol] 65 U/L Normal 46-116 [facility] Comment on above: Performed By: #### T SH, CMP, T7, LIPID #### [facility] [address] [place] [address] Dr. Michelle Cali ALT [Catalytic activity/Vol] 17 U/L Normal 14-59 [facility] Comment on above: Performed By: #### T SH, CMP, T7, LIPID #### [facility] [address] [place] [address] Dr. Michelle Cali Anion gap [Moles/Vol] 12.2 mmol/L Normal [facility] Comment on above: Performed By: #### T SH, CMP, T7, LIPID #### [facility] [address] [place] [address] Dr. Michelle Cali AST [Catalytic activity/Vol] 15 U/L Normal 15-37 [facility] Comment on above: Performed By: #### T SH, CMP, T7, LIPID #### [facility] [address] [place] [address] Dr. Michelle Cali Bilirubin [Mass/Vol] 0.4 mg/dL Normal 0.2-1.0 [facility] Comment on above: Performed By: #### T SH, CMP, T7, LIPID #### [facility] [address] [place] [address] Dr. Michelle Cail Calcium [Mass/Vol] 9.4 mg/dL Normal 8.5-10.1 [facility] Comment on above: Performed By: #### T SH, CMP, T7, LIPID #### [facility] [address] [place] [address] Dr. Michelle Cali Chloride [Moles/Vol] 104 mmol/L Normal 98-107 [facility] Comment on above: Performed By: #### T SH, CMP, T7, LIPID #### [facility] [address] [address] [address] Michelle Cali CO2 [Moles/Vol] 27.7 mmol/L Normal 21.0-32.0 [facility] Comment on above: Performed By: #### T SH, CMP, T7, LIPID #### [facility] [address] [address] [address] Michelle Cali Creatinine [Mass/Vol] 0.63 mg/dL Normal 0.55-1.02 [facility] Comment on above: Performed By: #### T SH, CMP, T7, LIPID #### [facility] [address] [address] [address] Michelle Cali EGFR-AF EGYPTIAN >60 Normal >=60 [facility] Comment on above: Performed By: #### T SH, CMP, T7, LIPID #### [facility] [address] [address] [address] Michelle Cali EGFR-NON AF EGYPTIAN >60 Normal >=60 [facility] Comment on above: Performed By: #### T SH, CMP, T7, LIPID #### [facility] [address] [address] [address] Michelle Cali Globulin (S) [Mass/Vol] 4.2 g/dL Normal [facility] Comment on above: Performed By: #### T SH, CMP, T7, LIPID #### [facility] [address] [address] [address] Michelle Cali Glucose [Mass/Vol] 83 mg/dL Normal 74-106 [facility] Comment on above: Performed By: #### T SH, CMP, T7, LIPID #### [facility] [address] [address] [address] Michelle Cali Potassium [Moles/Vol] 3.9 mmol/L Normal 3.5-5.1 [facility] Comment on above: Performed By: #### T SH, CMP, T7, LIPID #### [facility] [address] [address] [address] Michelle Cali Protein [Mass/Vol] 8.5 g/dL Critically high 6.4-8.2 [facility] Comment on above: Performed By: #### T SH, CMP, T7, LIPID #### [facility] [address] [address] [address] Michelle Cali Sodium [Moles/Vol] 140 mmol/L Normal 136-145 [facility] Comment on above: Performed By: #### T SH, CMP, T7, LIPID #### [facility] [address] [address] [address] Michelle Cali Urea nitrogen [Mass/Vol] 9.0 mg/dL Normal 7.0-18.0 [facility] Comment on above: Performed By: #### T SH, CMP, T7, LIPID #### [facility] [address] [place] [address] Dr. Michelle Cali Urea nitrogen/Creatinine [Mass ratio] 14.3 mg/mg Normal [facility] Comment on above: Performed By: #### T SH, CMP, T7, LIPID #### [facility] [address] [place] [address] Dr. Michelle Cali TSHon 09-18-2022 TSH 1.245 uIU/mL Normal 0.358-3.740 [facility] Comment on above: Performed By: #### T SH, CMP, T7, LIPID #### [facility] [address] [place] [address] ABD/PELV W CONon [...] JEFFREY BEGUM Date: 2022-07-06 01:26 Normal [facility] CBC AUTO DIFFon 07-05-2022 BASO # 0.1 103/ul Normal 0.0-0.1 [facility] Comment on above: Performed By: #### C BC #### [facility] [address] [place] [address] Dr. Michelle Cali Basophils/100 WBC (Bld) 0.9 % Normal 0.2-2.0 [facility] Comment on above: Performed By: #### C BC #### [facility] [address] [place] [address] Dr. Michelle Cali EO # 0.1 103/ul Normal 0.0-0.7 [facility] Comment on above: Performed By: #### C BC #### [facility] [address] [place] [address] Dr. Michelle Cali Eosinophils/100 WBC (Bld) 1.0 % Normal 0.9-7.0 [facility] Comment on above: Performed By: #### C BC #### [facility] [address] [place] [address] Dr. Michelle Cali Erythrocyte distribution width (RBC) [Ratio] 12.5 % Normal 11.0-15.0 [facility] Comment on above: Performed By: #### C BC #### [facility] [address] [place] [address] Dr. Michelle Cali Hematocrit (Bld) [Volume fraction] 39.6 % Normal 36.0-48.0 [facility] Comment on above: Performed By: #### C BC #### [facility] [address] [place] [address] Dr. Michelle Cali Hemoglobin (Bld) [Mass/Vol] 13.6 g/dL Normal 12.0-16.0 [facility] Comment on above: Performed By: #### C BC #### [facility] [address] [place] [address] Dr. Michelle Cali IG # 0.02 10e3/ul Normal 0.00-0.03 [facility] Comment on above: Performed By: #### C BC #### [facility] [address] [place] [address] Dr. Michelle Cali IG % 0.2 % Normal 0.0-0.5 [facility] Comment on above: Performed By: #### C BC #### [facility] [address] [place] [address] Dr. Michelle Cali LYMPH # 4.0 103/ul Critically high 1.2-3.8 [facility] Comment on above: Performed By: #### C BC #### [facility] [address] [place] [address] Dr. Michelle Cali Lymphocytes/100 WBC (Bld) 44.0 % Normal 20.5-60.0 [facility] Comment on above: Performed By: #### C BC #### [facility] [address] [place] [address] Dr. Michelle Cali MANUAL DIFF REQ NO Normal [facility] Comment on above: Performed By: #### C BC #### [facility] [address] [place] [address] Dr. Michelle Cali MCH (RBC) [Entitic mass] 29.7 pg Normal 26.7-34.0 [facility] Comment on above: Performed By: #### C BC #### [facility] [address] [place] [address] Dr. Michelle Cali MCHC (RBC) [Mass/Vol] 34.3 g/dL Normal 29.9-35.2 [facility] Comment on above: Performed By: #### C BC #### [facility] [address] [place] [address] Dr. Michelle Cali MCV (RBC) [Entitic vol] 86.5 fL Normal 81.0-99.0 [facility] Comment on above: Performed By: #### C BC #### [facility] [address] [place] [address] Dr. Michelle Cali MONO # 0.6 103/ul Normal 0.3-0.8 [facility] Comment on above: Performed By: #### C BC #### [facility] [address] [place] [address] Dr. Michelle Cali Monocytes/100 WBC (Bld) 6.7 % Normal 1.7-12.0 [facility] Comment on above: Performed By: #### C BC #### [facility] [address] [place] [address] Dr. Michelle Cali NEUT # 4.2 103/ul Normal 1.4-6.5 [facility] Comment on above: Performed By: #### C BC #### [facility] [address] [place] [address] Dr. Michelle Cali Neutrophils/100 WBC (Bld) 47.2 % Normal 43.0-75.0 [facility] Comment on above: Performed By: #### C BC #### [facility] [address] [place] [address] Dr. Michelle Cali Platelet mean volume (Bld) [Entitic vol] 11.4 fL Normal 9.5-13.5 [facility] Comment on above: Performed By: #### C BC #### [facility] [address] [place] [address] Dr. Michelle Cali PLT 342 103/ul Normal 150-450 [facility] Comment on above: Performed By: #### C BC #### [facility] [address] [place] [address] Dr. Michelle Cali RBC 4.58 106/ul Normal 4.20-5.40 [facility] Comment on above: Performed By: #### C BC #### [facility] [address] [address] [address] Michelle Cali WBC 9.0 103/ul Normal 4.0-11.0 [facility] Comment on above: Performed By: #### C BC #### [facility] [address] [place] [address] Dr. Michelle Cali PREG HCG QUALon 07-05-2022 , QUAL Negative Normal NEGATIVE [facility] Comment on above: Performed By: #### P REG #### [facility] [address] [place] [address] Dr. Michelle Cali PROF 14(COMP METB)on 022 Albumin [Mass/Vol] 4.4 g/dL Normal 3.4-5.0 [facility] Comment on above: Performed By: #### C BC #### [facility] [address] [place] [address] Dr. Michelle Cali Albumin/Globulin [Mass ratio] 1.1 {ratio} Normal [facility] Comment on above: Performed By: #### C BC #### [facility] [address] [place] [address] Dr. Michelle Cali ALP [Catalytic activity/Vol] 82 U/L Normal 46-116 [facility] Comment on above: Performed By: #### C BC #### [facility] [address] [place] [address] Dr. Michelle Cali ALT [Catalytic activity/Vol] 22 U/L Normal 14-59 [facility] Comment on above: Performed By: #### C BC #### [facility] [address] [place] [address] Dr. Michelle Cali Anion gap [Moles/Vol] 9.3 mmol/L Normal [facility] Comment on above: Performed By: #### C BC #### [facility] [address] [place] [address] Dr. Michelle Cali AST [Catalytic activity/Vol] 17 U/L Normal 15-37 [facility] Comment on above: Performed By: #### C BC #### [facility] [address] [address] [address] Michelle Cali Bilirubin [Mass/Vol] 0.5 mg/dL Normal 0.2-1.0 [facility] Comment on above: Performed By: #### C BC #### [facility] [address] [address] [address] Michelle Cali Calcium [Mass/Vol] 9.1 mg/dL Normal 8.5-10.1 [facility] Comment on above: Performed By: #### C BC #### [facility] [address] [place] [address] Dr. Michelle Cali Chloride [Moles/Vol] 104 mmol/L Normal 98-107 [facility] Comment on above: Performed By: #### C BC #### [facility] [address] [place] [address] Dr. Michelle Cali CO2 [Moles/Vol] 26.8 mmol/L Normal 21.0-32.0 [facility] Comment on above: Performed By: #### C BC #### [facility] [address] [place] [address] Dr. Michelle Cali Creatinine [Mass/Vol] 0.73 mg/dL Normal 0.55-1.02 [facility] Comment on above: Performed By: #### C BC #### [facility] [address] [place] [address] Dr. Michelle Cali EGFR-AF EGYPTIAN >60 Normal >=60 [facility] Comment on above: Performed By: #### C BC #### [facility] [address] [place] [address] Dr. Michelle Cali EGFR-NON AF EGYPTIAN >60 Normal >=60 [facility] Comment on above: Performed By: #### C BC #### [facility] [address] [place] [address] Dr. Michelle Cali Globulin (S) [Mass/Vol] 4.1 g/dL Normal [facility] Comment on above: Performed By: #### C BC #### [facility] [address] [place] [address] Dr. Michelle Cali Glucose [Mass/Vol] 84 mg/dL Normal 74-106 [facility] Comment on above: Performed By: #### C BC #### [facility] [address] [address] [address] Michelle Cali Potassium [Moles/Vol] 3.1 mmol/L Critically low 3.5-5.1 [facility] Comment on above: Performed By: #### C BC #### [facility] [address] [address] [address] Michelle Cali Protein [Mass/Vol] 8.5 g/dL Critically high 6.4-8.2 [facility] Comment on above: Performed By: #### C BC #### [facility] [address] [place] [address] Dr. Michelle Cali Sodium [Moles/Vol] 137 mmol/L Normal 136-145 [facility] Comment on above: Performed By: #### C BC #### [facility] [address] [address] [address] Michelle Cali Urea nitrogen [Mass/Vol] 13.0 mg/dL Normal 7.0-18.0 [facility] Comment on above: Performed By: #### C BC #### [facility] [address] [place] [address] Dr. Michelle Cali Urea nitrogen/Creatinine [Mass ratio] 17.8 mg/mg Normal [facility] Comment on above: Performed By: #### C BC #### [facility] [address] [place] [address] Dr. Michelle Cali Vital Signs Date Time Vital Sign Value Performing Clinician Lianna browne 09-01-2024 14:46-0500 Body mass index (BMI) [Ratio] 29.32 kg/m2 [facility] Work Phone: [facility] [employer] 09-01-2024 14:46-0500 Body weight 77.47 kg [facility] Work Phone: [facility] 09-01-2024 14:46-0500 Diastolic blood pressure 74 mm[Hg] Roosevelt Mauricio DO Work Phone: [facility] 09-01-2024 14:46-0500 Systolic blood pressure 114 mm[Hg] Roosevelt Mauricio DO Work Phone: [facility] 08-01-2024 14:48-0500 Body mass index (BMI) [Ratio] 29.94 kg/m2 Agata Susana PA Work Phone: [facility] 08-01-2024 14:48-0500 Body weight 79.11 kg Agata [place] PA Work Phone: [facility] 08-01-2024 14:48-0500 Diastolic blood pressure 82 mm[Hg] Agata Susana PA Work Phone: [facility] 08-01-2024 14:48-0500 Systolic blood pressure 122 mm[Hg] Agata Susana PA Work Phone: [facility] 07-07-2024 10:55-0500 Body mass index (BMI) [Ratio] 33.3 kg/m2 Roosevelt Mauricio DO Work Phone: [facility] 07-07-2024 10:55-0500 Body weight 88 kg Roosevelt Mauricio DO Work Phone: [facility] 07-07-2024 10:55-0500 Diastolic blood pressure 74 mm[Hg] Roosevelt Mauricio DO Work Phone: [facility] 07-07-2024 10:55-0500 Systolic blood pressure 112 mm[Hg] Roosevelt Mauricio DO Work Phone: [facility] 06-29-2024 17:16-0500 Body mass index (BMI) [Ratio] 32.81 kg/m2 Roosevelt Mauricio DO Work Phone: [facility] 06-29-2024 17:16-0500 Body weight 86.69 kg Roosevelt Mauricio DO Work Phone: [facility] 06-29-2024 17:16-0500 Diastolic blood pressure 72 mm[Hg] Roosevelt Mauricio DO Work Phone: [facility] 06-29-2024 17:16-0500 Systolic blood pressure 110 mm[Hg] Roosevelt Mauricio DO Work Phone: [facility] 06-22-2024 16:27-0500 Body mass index (BMI) [Ratio] 33.03 kg/m2 Roosevelt Mauricio DO Work Phone: [facility] 06-22-2024 16:27-0500 Body weight 87.27 kg Roosevelt Mauricio DO Work Phone: [facility] 06-22-2024 16:27-0500 Diastolic blood pressure 68 mm[Hg] Roosevelt Mauricio DO Work Phone: [facility] 06-22-2024 16:27-0500 Systolic blood pressure 110 mm[Hg] Roosevelt Mauricio DO Work Phone: [facility] 06-14-2024 15:03-0500 Body mass index (BMI) [Ratio] 33.09 kg/m2 Roosevelt Mauricio DO Work Phone: [facility] 06-14-2024 15:03-0500 Body weight 87.45 kg Roosevelt Mauricio DO Work Phone: [facility] 06-14-2024 15:03-0500 Diastolic blood pressure 76 mm[Hg] Roosevelt Mauricio DO Work Phone: [facility] 06-14-2024 15:03-0500 Systolic blood pressure 120 mm[Hg] Roosevelt Mauricio DO Work Phone: [facility] 06-07-2024 15:14-0500 Body mass index (BMI) [Ratio] 32.61 kg/m2 Agata PRUITT Work Phone: [facility] 06-07-2024 15:14-0500 Body weight 86.18 kg Agata PRUITT Work Phone: [facility] 06-07-2024 15:14-0500 Diastolic blood pressure 74 mm[Hg] Agata PRUITT Work Phone: [facility] 06-07-2024 15:14-0500 Systolic blood pressure 116 mm[Hg] Agata Susana PA Work Phone: [facility] 05-24-2024 15:21-0500 Body mass index (BMI) [Ratio] 32.61 kg/m2 Agata Susana PA Work Phone: [facility] 05-24-2024 15:21-0500 Body weight 86.18 kg Agata [place] PA Work Phone: [facility] 05-24-2024 15:21-0500 Diastolic blood pressure 70 mm[Hg] Agata Susana PA Work Phone: [facility] 05-24-2024 15:21-0500 Systolic blood pressure 110 mm[Hg] Agata Susana PA Work Phone: [facility] 05-10-2024 14:52-0400 Body mass index (BMI) [Ratio] 32.27 kg/m2 Roosevelt Mauricio DO Work Phone: [facility] 05-10-2024 14:52-0400 Body weight 85.28 kg Roosevelt Mauricio DO Work Phone: [facility] 05-10-2024 14:52-0400 Diastolic blood pressure 76 mm[Hg] Roosevetl Mauricio DO Work Phone: [facility] 05-10-2024 14:52-0400 Systolic blood pressure 112 mm[Hg] Roosevelt Mauricio DO Work Phone: [facility] 04-27-2024 15:49-0400 Body mass index (BMI) [Ratio] 31.41 kg/m2 Agata Susana PA Work Phone: [facility] 04-27-2024 15:49-0400 Body weight 83.01 kg Agata Susana PA Work Phone: [facility] 04-27-2024 15:49-0400 Diastolic blood pressure 68 mm[Hg] Agata Susana PA Work Phone: [facility] 04-27-2024 15:49-0400 Systolic blood pressure 110 mm[Hg] Agata [place] PA Work Phone: [facility] 03-30-2024 15:49-0400 Body mass index (BMI) [Ratio] 30.4 kg/m2 Agata PRUITT Work Phone: [facility] 03-30-2024 15:49-0400 Body weight 80.34 kg Agata PRUITT Work Phone: [facility] 03-30-2024 15:49-0400 Diastolic blood pressure 60 mm[Hg] Agata PRUITT Work Phone: [facility] 03-30-2024 15:49-0400 Systolic blood pressure 100 mm[Hg] Agata PRUITT Work Phone: [facility] Healthcare Encounters Encounter Date Encounter Type Care Provider Facility Start: 09-01-2024 End: 09-01-2024 ambulatory ROOSEVELT MAURICIO Not Available Start: 09-01-2024 End: 09-01-2024 care visit Roosevelt Mauricio DO Work Phone: [facility] Comment on above: 6 weeks f ollow-up Start: 08-01-2024 End: 08-01-2024 Postop follow up visit related to original px Agata PRUITT Work Phone: [facility] Comment on above: S/P section ; Postop check Start: 08-01-2024 End: 08-01-2024 ambulatory AGATA MEZA Not Available Start: 08-01-2024 End: 08-01-2024 Bamboo flowsheet Agata PRUITT Work Phone: [facility] Start: 08-01-2024 End: 08-01-2024 Bamboo flowsheet Agata PRUITT Work Phone: [facility] Start: 07-13-2024 End: 07-13-2024 Clinisync Result Encounter Roosevelt Mauricio DO Work Phone: [facility] Unsolicited Start: 07-13-2024 End: 07-13-2024 Clinisync Result Encounter Roosevelt Mauricio DO Work Phone: [facility] Unsolicited Start: 07-13-2024 End: 07-13-2024 ambulatory Jesus Tsang Facility:[facility] Start: 07-12-2024 End: 07-12-2024 ambulatory Roosevelt Mauricio Facility:[facility] Start: 07-11-2024 End: 07-11-2024 Clinisync Result Encounter [...] PRUITT Work Phone: [facility] Start: 04-08-2024 End: 04-08-2024 Clinisync Result Encounter Roosevelt Mauricio DO Work Phone: [facility] Department Unsolicited Start: 04-08-2024 End: 04-08-2024 Clinisync Result Encounter Roosevelt Mauricio DO Work Phone: [facility] Department Unsolicited Start: 03-30-2024 End: 03-30-2024 flow sheet Agata PRUITT Work Phone: [facility] Comment on above: 24 weeks gestation o f ; Diabetes mellitus screening; Gastroesophageal reflux in Start: 03-30-2024 End: 03-30-2024 ambulatory AGATA MEZA Not Available Start: 03-30-2024 End: 03-30-2024 Bamboo flowsheet Agata PRUITT Work Phone: [facility] Start: 03-30-2024 End: 03-30-2024 Bamboo flowsheet Agata PRUITT Work Phone: [facility] Start: 03-12-2024 End: 03-16-2024 Clinisync Result Encounter Agata PRUITT Work Phone: [facility] External Department Unsolicited Start: 03-12-2024 End: 03-16-2024 Clinisync Result Encounter Agata PRUITT Work Phone: [facility] Department Unsolicited Start: 03-02-2024 End: [...] mnl screen Roosevelt Mauricio DO Work Phone: H/O: section S/P sectio n Agata PRUITT Work Phone: Plan of Treatment Date Care Activity Detail Author Start: 08-01-2024 End: 08-01-2024 Patient encounter procedure 08/01/2024 2:40 PM EST Office Visit [facility] [address] [place] [phone] Agata Meza PA [address] [place], [place] [id number] Arrived [facility] Comment on above: Arrived Start: 07-07-2024 End: 07-07-2024 Patient encounter procedure 07/07/2024 10:20 AM EST Routine [facility] [address] [address] [address] Roosevelt Martínez, DO [address] [place] [address] [facility] Start: 06-29-2024 End: 06-29-2024 [...] PM EST Routine [facility] [address] [address] [place] [address] Roosevelt Martínez, DO [address] [place] [address] [facility] Start: 06-07-2024 End: 06-07-2024 Patient encounter procedure 06/07/2024 2:50 PM EST Routine [facility] [address] [place] [phone] Agata Meza PA [address] [place] [address] [facility] Start: 05-24-2024 End: 05-24-2024 Patient encounter procedure 05/24/2024 2:40 PM EST Routine [facility] [address] [facility] [phone] Agata Meza PA [address] [place], [place] [id number] [facility] Start: 05-10-2024 End: 05-10-2024 Patient encounter procedure 05/10/2024 2:50 PM EDT Routine [facility] [address] [place] [phone] Roosevelt Martínez DO [address] [place] [address] Arrived [facility] Comment on above: Arrived Start: 05-10-2024 End: 05-10-2024 Professional / ancillary services management 05/10/2024 2:00 PM EDT Ancillary Procedure [facility] [address] [facility] [phone] [facility] Start: 04-27-2024 End: 04-27-2024 Patient encounter procedure 04/27/2024 3:40 PM EDT Routine [facility] [address] [facility] [phone] Agata Meza PA [address] [place] [address] [facility] Start: 04-27-2024 End: 04-27-2025 [...] mellitus screening Expected: 03/30/2024 (Approximate), Expires: 03/30/2025 [facility] Comment on above: Expected: 03/30/2024 (Approximate), Expires: 03/30/2025 Payers Date Payer Category Payer Medicaid [id number] 2024 Medicaid [id number] 2018 [facility] [id number] 2018 Unknown BCBS BCBS xxxxxx [id number] 2018-Present [phone] [address] [place] [address] [id number]. [id number] 2001 Unknown [id number] 2.16.840.1.135229.3.579.2. 593 2001 Unknown [id number] 2.16.840.1.006051.3.579.2. 593 2001 Unknown [id number] 2.16.840.1.862995.3.579.2. 593 2001 Unknown [id number] 2.16.840.1.148644.3.579.2. 593 2001 Unknown [id number] 2.16.840.1.480065.3.579.2. 1258 2001 Unknown [id number] 2.16.840.1.242272.3.579.2. 1258 2001 Unknown [id number] 2.16.840.1.363573.3.579.2. 1258 2001 Unknown [id number] 2.16.840.1.158929.3.579.2. 1259 2001 Unknown [id number] 2.16.840.1.527591.3.579.2. 1258 2001 Unknown [id number] 2.16.840.1.065019.3.579.2. 125 2001 Unknown [id number] 2.16.840.1.116968.3.579.2. 1258 2001 Unknown [id number] 2.16.840.1.211912.3.579.2. 1258 2001 Unknown [id number] 2.16.840.1.879207.3.579.2. 1258 2001 Unknown [id number] 2.16.840.1.874503.3.579.2. 1259 2001 Unknown [id number] 2.16.840.1.149378.3.579.2. 1259 2001 Unknown [id number] 2.16.840.1.918967.3.579.2. 9 2001 Unknown [id number] 2.16.840.1.928587.3.579.2. 9 2001 Unknown [id number] 2.16.840.1.463978.3.579.2. 9 2001 Unknown [id number] 2.16.840.1.715741.3.579.2. 1259 1959 Self-pay 1959 Unknown [id number] Unknown [id number] 2.16.840.1.278991.3.579.2. 531 Unknown [id number] 2.16.840.1.193924.3.579.2. 531 Social History Date Type Detail Facility Start: 11-19-2023 Tobacco smoking stat [facility] Never smoked tobacco [facility] Start: 11-19-2023 Tobacco use and exposure Smoke less tobacco non-user [facility] Start: 03-02-2024 End: 03-30-2024 Alcoholic beverage intake Lifetime non-drinker (finding) [facility] Start: 11-19-2023 End: 08-01-2024 [facility] Start: 11-19-2023 Tobacco use panel [facility] Start: 04-20-2023 Alcohol Comment Caffeine intake: non e [facility] Start: 10-27-2023 [facility] Start: 2001 Sex assigned at Not on file [facility] Start: 05-10-2024 End: 08-01-2024 Alcoholic beverage intake Current drinker of alcohol (finding) [facility] Clinical Notes 03-30-2024 to 09-01-2024 Amarilis Oden LPN - 09/01/2024 2:20 PM EDMOND Niño - 08/01/2024 2:40 PM Daisha Oden LPN - 07/07/2024 10:20 AM Zechariah Narvaez, DEPARTMENT CHAIR - 06/29/2024 4:00 PM EST Note Date & Type Note Facility 09-01-2024 History of Presen t illness Narrative Reason for Appointment: Patient ID: Latha Cuevas is a 24 y.o. female who presents for Care Patient presents today for Consult appointment. 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 Exam conducted with a service learning coordinator present. Vitals: Estimated body mass index is 29.32 kg/m as calculated from the following: Height as of 04/21/23: 5' 4 . Weight as of this encounter: 170 lb 12.8 oz. BP: 114/74 No LMP recorded. ASSESSMENT & PLAN ICD-10-CM 1. 6 weeks follow-up Z39.2 Patient presents for 6 week post appointment. Patient is still having a headache/migraine and PCP has order CT already. Patient declines to have Ubrelvy sample at this time. Patient has finished her steroid that was given and CT is scheduled for tomorrow @8:30am @ [facility]. Patient is going to return to work on Thursday and will obtain a return to work note. Patient will continue applying heat. Patient declines control at this time. Patient to return to clinic for routine annual appointment. Documented by Amarilis Oden LPN on behalf of: Roosevelt Martínez DO documented in this encounter [facility] 08-01-2024 History of Presen t illness Narrative Reason for Appointment: Patient ID: Latha Cuevas is a 24 y.o. female who presents for Post-op Visit Patient presents today for Post Follow Up appointment. 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 Musculoskeletal: Negative. Skin: Negative. Neurological: Negative. Psychiatric/Behavioral: Negative. All other systems reviewed and are negative. Hematological: Negative. Endocrine: Negative. Allergic/Immunologic: Negative. OBJECTIVE Objective: Physical Exam Constitutional: Appearance: Normal appearance. She is normal weight. HENT: Head: Normocephalic. Cardiovascular: Rate and Rhythm: Normal rate. Pulses: Normal pulses. Pulmonary: Effort: Pulmonary effort is normal. Breath sounds: Normal breath sounds. Abdominal: Palpations: Abdomen is soft. Comments: Pfannenstiel incision healed well Musculoskeletal: General: Normal range of motion. Neurological: General: No focal deficit present. Mental Status: She is alert and oriented to person, place, and time. Skin: General: Skin is warm. Psychiatric: Mood and Affect: Mood normal. Behavior: Behavior normal. Thought Content: Thought content normal. Judgment: Judgment normal. Vitals and nursing note reviewed. Vitals: Estimated body mass index is 29.94 kg/m as calculated from the following: Height as of 04/21/23: 5' 4 . Weight as of this encounter: 174 lb 6.4 oz. BP: 122/82 Patient's last menstrual period was 10/13/2023. ASSESSMENT & PLAN ICD-10-CM 1. S/P section Z98.891 2. Postop check Z09 Patient presents today for a one week postop section check. Patient is doing well with minor complaints of pain. Incision has been noted as healing well with no signs and symptoms of infection. Patient continues to do well. She denies depression or suicidal ideation. Follow Up: Patient is to return in 5 weeks for 6 week evaluation. 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 Exam conducted with a service learning coordinator present. 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 Exam conducted with a service learning coordinator present. 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 Exam conducted with a service learning coordinator present. 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 [...] EDMOND Osborn documented in this encounter [facility] 05-24-2024 History of Presen t illness [...] (upper airway resistance syndrome) 11/19/2023 Hx of Guillain[place] syndrome 11/23/2023 History of shingles 11/23/2023 History [...] Eczema Fatigue Gastritis without bleeding 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 [...] Eczema Fatigue Gastritis without bleeding 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 Exam conducted with a service learning coordinator present. 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 [...] Eczema Fatigue Gastritis without bleeding 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 [...] EDMOND Osborn documented in this encounter [facility] 03-30-2024 History of Presen t illness [...] (upper airway resistance syndrome) 11/19/2023 Hx of Guillain[place] syndrome 11/23/2023 History of shingles 11/23/2023 History [...] Eczema Fatigue Gastritis without bleeding 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 Exam conducted with a service learning coordinator present. Vitals: Estimated body mass index is 30.4 kg/m as calculated from the following: Height as of 10/3/23: 5' 4 . Weight as of this [...] week for routine OB appointment. Documented by iAmee Burleson LPN on behalf of: EDMOND Osborn documented in this encounter [facility] Evaluation note Diagnosis Third trimester [...] [facility] Diagnosis S/P section Other postprocedural status Postop check Follow-up examination, following unspecified surgery [facility] Diagnosis 6 weeks follow-up documented in this encounter [facility] Summary Purpose Family History No Family History Records FoundNo Family History Records FoundNo Family History Records Found Advance Directives No Advanced Directives Records FoundNo Advanced Directives Records FoundNo Advanced Directives Records Found Additional Source Comments INFORMATION SOURCE (unrecogn ized section and content) DATE CREATED AUTHOR 12/09/2022 [facility] DATE CREATED AUTHOR AUTHOR'S ORGANIZ ATION 07/20/2024 [facility] DATE CREATED AUTHOR AUTHOR'S ORGANIZ ATION 09/03/2024 [facility] EPIC Reason for Visit (unrecogniz ed section and content) Reason Comments Routine Visit Reason Comments Post-op Visit Reason Comments Care Care Teams (unrecognized sec tion and content) Skein Yard Drier Relationship Specialty Start Date End Date Jesus Tsang MD [address] [place] [address] PCP - General Family Medicine 04/21/23 Skein Yard Drier Relationship Specialty Start Date End Date Jesus Tsang MD [address] [place] [address] PCP - General Family Medicine 04/21/23 Skein Yard Drier Relationship Specialty Start Date End Date Jesus Tsang MD [address] [place] [address] PCP - General Family Medicine 04/21/23 Skein Yard Drier Relationship Specialty Start Date End Date Jesus Tsang MD [address] [place] [address] PCP - General Family Medicine 04/21/23 Skein Yard Drier Relationship Specialty Start Date End Date Jesus Tsang MD [address] [place] [address] PCP - General Family Medicine 04/21/23 Skein Yard Drier Relationship Specialty Start Date End Date Jesus Tsang MD [address] [facility] [place] [address] PCP - General Family Medicine 04/21/23 Skein Yard Drier Relationship Specialty Start Date End Date Jesus Tsang MD [address] [facility] [place] [address] PCP - General Family Medicine 04/21/23 Skein Yard Drier Relationship Specialty Start Date End Date Jesus Tsang MD [address] [facility] [place] [address] PCP - General Family Medicine 04/21/23 Skein Yard Drier Relationship Specialty Start Date End Date Jesus Tsang MD [address] [facility] [place] [address] PCP - General Family Medicine 04/21/23 Skein Yard Drier Relationship Specialty Start Date End Date Jesus Tsang MD [address] [facility] [place] [address] PCP - General Family Medicine 04/21/23 Skein Yard Drier Relationship Specialty Start Date End Date Jesus Tsang MD [address] [facility] [place] [address] PCP - General Family Medicine 04/21/23 FOR [...] ON THE PRIMARY CLINICAL RECORDS. [facility] [employer] [facility]. provides no warranty or guarantee of the accuracy or completeness of information in this document.
[2024-10-30 15:35] LABS: Basophils Absolute Auto 0.1 10^3/uL (0.0-0.1); Basophils Percent Auto 0.6 % (0.2-2.0); Eosinophils Percent Auto 0.3 % (0.9-7.0); Hematocrit 37.1 % (36.0-48.0); Hemoglobin 12.6 g/dL (12.0-16.0); Immature Granulocytes Abs Auto 0.01 10^3/uL (0.00-0.03); Immature Granulocytes Pct Auto 0.1 % (0.0-0.5); Lymphocytes Absolute Auto 3.6 10^3/uL (1.2-3.8); Lymphocytes Percent Auto 38.1 % (20.5-60.0); Mean Corpuscular Hemoglobin 28.4 pg (26.7-34.0); Mean Corpuscular Volume 83.7 fL (81.0-99.0); Monocytes Absolute Auto 0.5 10^3/uL (0.3-0.8); Monocytes Percent Auto 5.1 % (1.7-12.0); Neutrophils Absolute Auto 5.3 10^3/uL (1.4-6.5); Neutrophils Percent Auto 55.8 % (43.0-75.0); Platelet Count 341 10^3/uL (150-450); Red Blood Count 4.43 10^6/uL (4.20-5.40); Red Cell Distribution Width 12.8 % (11.0-15.0); White Blood Count 9.5 10^3/uL (4.0-11.0)
[2024-10-30] MEDS: 0.9 % SODIUM CHLORIDE 1,000 ML 999 ML IV (15:42)
[2024-10-30] MEDS: ONDANSETRON PF 4 MG/2 ML VIAL IV (15:42)
[2024-10-30 15:51] LABS: HCG Qualitative NEGATIVE (NEGATIVE); Internal Control Within Normal Limits
[2024-10-30 15:58] LABS: Alanine Aminotransferase 20 U/L (14-59); Albumin Globulin Ratio 1.4; Albumin Level 4.5 g/dL (3.4-5.0); Alkaline Phosphatase 80 U/L (46-116); Anion Gap 15.2; Aspartate Amino Transferase 15 U/L (15-37); Bilirubin Total 0.4 mg/dL (0.2-1.0); Calcium 9.6 mg/dL (8.5-10.1); Chloride 103 mmol/L (98-107); Estimated GFR (African America >60 (>=60 mL/min/1.73m^2); Estimated GFR (Non-African Ame >60 (>=60 mL/min/1.73m^2); Globulin 3.3 g/dL; Glucose 90 mg/dL (74-106); Potassium 3.2 mmol/L (3.5-5.1); Sodium 139 mmol/L (136-145); Total Protein 7.8 g/dL (6.4-8.2)
[2024-10-30] MEDS: POTASSIUM BICARBONATE/CIT 25 MEQ TABLET EFF PO (16:20)
[2024-10-30 16:48] LABS: Bilirubin Urine NEGATIVE (NEGATIVE); Blood Urine NEGATIVE (NEGATIVE); Clarity Urine CLEAR (CLEAR); Color Urine LT. YELLOW (YELLOW); Glucose Urine UA NEGATIVE (NEGATIVE); Ketones Urine >=80 mg/dL (NEGATIVE); Leukocyte Esterase Urine NEGATIVE (NEGATIVE); Nitrite Urine NEGATIVE (NEGATIVE); Protein Urine NEGATIVE (NEG/TRACE); Urobilinogen Urine 0.2 EU/dL (0.2-1.0)
[2024-10-30 16:58] LABS: Bacteria Urine TRACE #/HPF (NONE SEEN); Cast Seen? NONE SEEN #/LPF (NONE SEEN); Crystals Seen? None Seen #/HPF (None Seen); Mucus Urine TRACE (NONE SEEN); RBC Urine 0-2 #/HPF (0-2); Squamous Epithelial Cell Urine MODERATE #/LPF (NONE/RARE); Urine Culture Indicated NO; WBC Urine 0-2 #/HPF (NONE SEEN)
== END 2024-10-30 17:20 | disposition home or self-care (01) ==
PROVIDERS: Personal Emergency Response Attendant; Emergency Provider Emergency Medicine; PCP Family Medicine
DX: G90.A Postural orthostatic tachycardia syndrome [POTS] (principal); R11.2 Nausea with vomiting, unspecified; F43.9 Reaction to severe stress, unspecified; K59.00 Constipation, unspecified; R42 Dizziness and giddiness; I45.10 Unspecified right bundle-branch block
CPT/HCPCS: 36415; 80053; 81001; 83690; 84703; 85025; 93005; 96361; 96374; 99285; J2405

== ENCOUNTER 2024-12-27 17:58 | Emergency (ER) | payer BC, MEDICAID, SELFPAY ==
--- OUTSIDE RECORDS SUMMARY | 2024-08-19 10:15 | XMS_ITS ---
Author Organization The [facility] in [place] Address [address] [place] [address] Care Team Providers Care Pilot Plant Operator Name Role Phone Kentrell Almotne Primary Care Provider Allergies No Known Allergies Results Component Value Reference Range Notes CT cervical spine wo con Reviewed date:09/03/2024 02:00:54 PM Interpretation: Performing Lab: Notes/Report: Source Facility: [place] [address] CT Scan Report Signed Patient: LATHA STEEL MR#: [id number] : 2000 Acct:[id number] Age/Sex: 24 / F ADM Date: 09/02/24 Loc: CT Attending Dr: Jesus Almonte M.D. Ordering Physician: Jesus Almonte M.D. Date of Service: 09/02/24 Procedure(s): CT cervical spine wo con Accession Number(s): [id number] cc: Jesus Almonte M.D. [place] [address] Patient Name: LATHA STEEL MRN: [id number] date: 2000 Sex: F Assigned Patient Location: CT Current Patient Location: CT Accession/Order Number: [id number] Exam Date: 09/02/2024 08:43 Report Date: 09/02/2024 18:16 At the request of: JESUS ALMONTE Procedure: CT cervical spine wo con EXAMINATION: CT cervical spine wo con HISTORY: Cervical Radiculopathy COMPARISON: No relevant comparison available. TECHNIQUE: Axial, Coronal, and Sagittal images were created without IV contrast. Dose reduction techniques were achieved by using automated exposure control and/or adjustment of mA and/or kV according to patient size and/or use of iterative reconstruction technique. FINDINGS: VERTEBRAL BODIES: No fracture, pars defect, or osseous lesion. FACET JOINTS: No disruption or abnormal widening. DISCS: No significant disc/facet abnormality, spinal stenosis, or foraminal stenosis. CENTRAL CANAL: No evidence of hemorrhage. PARASPINAL AREA: No visible mass. CT/CT cervical spine wo con IMPRESSION: 1. No abnormal or suspicious findings to account for patient's symptoms. Electronically authenticated by: RONNIE COELHO Date: 09/02/2024 18:16 Dictated By: Ronnie Coelho M.D. Signed By: 09/02/241818 DD/ 15 TD/TT: Gandy Dancer: [place] [address] CT Scan Report Signed Patient: NERIS STEEL MR#: [id number] : 2000 Acct:[id number] Age/Sex: 24 / F ADM Date: 09/02/24 Loc: CT Attending Dr: Jesus Almonte M.D. Ordering Physician: Jesus Almonte M.D. Date of Service: 09/02/24 Procedure(s): CT cer vical spine wo con Accession Number(s): [id number] cc: Jesus Almonte M.D. [place] [address] Patient Name: LATHA STEEL MRN: [id number] date: 2000 Sex: F Assigned Patient Location: CT Current Patient Location: CT Accession/Order Numb er: [id number] Exam Date: 09/02/2024 08:43 Report Date: 09/02/2024 18:16 At the request of: JESUS ALMONTE Procedure: CT cervic al spine wo con EXAMINATION: CT cerv ical spine wo con HISTORY: Cervical Radiculopathy COMPARISON: No relev ant comparison available. TECHNIQUE: Axial, Co yin, and Sagittal images were created without IV contrast. Dose reduc tion techniques were achieved by using automated exposure control and/or adjus tment of mA and/or kV according to patient size and/or use of iterative reconst ruction technique. FINDINGS: VERTEBRAL BODIES: No fracture, pars defect, or osseous lesion. FACET JOINTS: No dis ruption or abnormal widening. DISCS: No significan t disc/facet abnormality, spinal stenosis, or foraminal stenosis. CENTRAL CANAL: No ev idence of hemorrhage. PARASPINAL AREA: No visible mass. C T/CT cervical spine wo con IMPRESSION: 1. No abnormal or soto spicious findings to account for patient's symptoms. Electronically authe nticated by: RONNIE COELHO Date: 09/02/2024 18:16 Dictated By: Ronnie Coelho M.D. Signed By: 09/02/241818 DD/ 15 TD/TT: Gandy Dancer: REASON FOR VISIT headaches- 5 weeks , 3 weeks ago Mauricio added steroid has not helped, head feels too heavynon stop Medications Medication SIG (Take, Route, Fr equency, Duration) Notes Start Date End Date Status Meloxicam 15 MG 1 tablet Orally Once a day for 30 days 08/19/2024 Active CeleXA 10 MG 1 tablet Orally Once a day for 30 days 08/19/2024 Active Social History Tobacco Use: Social History Observation Description Date Details (start date - stop date) Never Smoker NA - NA Tobacco Use/Smoking Question Answer Notes Patient is a nonsmoker Tobacco Control (Standard) Question Answer Notes Tobacco use: Nonsmoker Problems Problem Type SNOMED Code ICD Code Onset Dates Problem Status W/U Status Risk Notes Problem Headache (05506679) Headache (R51) Active confirmed Problem Cervical radiculopathy (29375301) Cervical radiculopathy (M54.12) Active confirmed Vital Signs Weight 169.8 lbs 08/19/2024 Height 64 in 08/19/2024 Blood pressure systolic 122 mm Hg 08/19/19 25 Blood pressure diastolic 72 mm Hg 025 BMI 29.14 kg/m2 08/19/2024 Encounters Encounter Location Date Provider Diagnosis [facility] [address] [facility] [place] [address] 08/19/2024 Kentrell Hoy Headache R51 and Cervical radiculopathy M54.12 Assessments Encounter Date Diagnosis (ICD Code) Assessment Notes Treatment Notes Treatment Clinical Notes Section Notes 08/19/2024 Headache (ICD-10 - R51) 08/19/2024 Cervical radiculopathy (ICD-10 - M54.12) Plan Of Treatment Medication Medication Name Sig Start Date Stop Date Notes Meloxicam 15 MG 1 tablet Orally Once a day for 30 days CeleXA 10 MG 1 tablet Orally Once a day for 30 days 2024 Pending Test Test Name Order Date CT Brain w/o Contrast 08/19/2024 Progress Notes * Latha STEEL EDOB:[birth year] (24 yo F)Acc No.[id number]:08/19/2024 Progress Note Patient: Latha BOONE Provider: Gladys Almonte ([facility])MD :2000 A ge:24 Y S ex:Female Date:08/19/2024 Address:[address] [place], [place] [id number] Check In:02:09 PM ESTCheck O ut:02:59 PM EST Subjective: * Chief Complaints: * H eadaches- 5 weeks postpartum3 weeks ago Mauricio added steroid has not helpedHead feels too heavy non stop * HPI: D epression Screening: PHQ-2 (2015 Edition) L ittle interest or pleasure in doing things??Not at all F eeling down, depressed, or hopeless? N ot at all T otal Score 0 Feels like more in matt neck - delivered on Jul 12 - headache not till couple weekns after. 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, right knee Modified On:12/04/2022 Status:confirmed M54.16 Radiculopathy, lumba r region Modified On:12/04/2022 Status:confirmed R07.9 Chest pain Modified On:09/03/2023 Status:confirmed R53.83 Fatigue Modified On:09/03/2023 Status:confirmed L30.9 Eczema Modified On:12/19/2022 Status:confirmed J01.90 Acute sinusitis Modified On:12/19/2022 Status:confirmed J30.9 Allergic rhinitis Modified On:12/19/2022 Status:confirmed M65.4 De Quervain's tenosy novitis Modified On:12/19/2022 Status:confirmed M54.6 Bilateral thoracic b ack pain Modified On:12/19/2022 Status:confirmed 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) Modified On:12/04/2022 Status:confirmed M23.91 Internal derangement of knee, right Modified On:12/19/2022 Status:confirmed R19.7 Bloody diarrhea Modified On:12/19/2022 Status:confirmed J35.1 Hyperplasia of tonsi ls Modified On:12/19/2022 Status:confirmed G57.13 Meralgia paresthetic a, bilateral lower limbs Modified On:12/19/2022 Status:confirmed M23.006 Cyst of meniscus of right knee Modified On:12/19/2022 Status:confirmed U07.1 COVID-19 virus infec tion Modified On:12/19/2022 Status:confirmed I49.8 POTS (postural ortho static tachycardia syndrome) Modified On:12/05/2022 Status:confirmed E03.9 Hypothyroid Modified On:12/05/2022U Status:confirmed R04.0 Nosebleed Modified On:10/22/2023U Status:confirmed R55 Syncopal episodes Modified On:10/22/2023/U Status:confirmed R04.0 Epistaxis Modified On:10/21/2023/U Status:confirmed R55 Syncope Modified On:10/27/2023/U Status:confirmed R51 Headache Modified On:08/19/2024/U Status:confirmed M54.12 Cervical radiculopat hy Modified On:08/19/2024U Status:confirmed * Medical History: * Surgical History: E xp Lap Breast Reduction * Hospitalization/Major Diagno stic Procedure: D enies Past Hospitalization * Family History: F ather: alive. M other: alive. B rother(s): alive. S ister(s): alive. 1 brother(s) , 1 sister(s) - healthy. . * Social History: T obacco Use: T obacco Control (Standard) T obacco use: N onsmoker Tobacco Use/Smoking P atient is a n onsmoker * Medications: D iscontinuedCephalexin 500 MG Tablet 2 tabs Orally bid Medication List reviewed and reconciled with the patientDiscontinued Cephalexin 500 MG Tablet 2 tabs Orally bid Medication List reviewed and reconciled with the patient * Allergies: N .K.D.A.no[Allergies Verified] Objective: * Vitals: W t:169.8lbs, Ht: 64 in, BP:122/72mm Hg, BMI:29.14Index, Ht-cm: 162.56 cm, Wt-k.02 kg. * Examination: A bdomen Exam:: P oor rom in neck due to pain and + POP Left paracervical. Assessment: * Assessment: 1. C ervical radiculopathy - M54.12 (Primary) 2 . H eadache - R51 ? Plan: * Treatment: * Procedure Codes: * Preventive Medicine: Screenings/Counseling: B LA ACTION PLAN Above Normal BMI Follow-up D ietary management education, guidance, and counseling * * Sign off status: Completed Visit Status: C HK (Check Out) true * Provider: Gladys Almonte ([facility])MD Date: 0 08/19/2024 Generated for Nata saul/Contreras/Debitting on: 0 12/27/2024 06:08 PM EDT History and Physical Notes * HPI (History of Present Illness) Category Sub-Category Detail Notes Category Not es Depression Screening PHQ-2 (2015 Edition) Little interest or pleasure in doing things?: Not at all Feels like more in matt neck - delivered on Jul 12 - headache not till couple weekns after Feeling down, depressed, or hopeless?: N ot at all Total Score: 0 Examination Category Sub-Category Detail Notes Category Not es Abdomen Exam: Poor rom in ne ck due to pain and + POP Left paracervical
--- OUTSIDE RECORDS SUMMARY | 2024-09-03 10:00 | XMS_ITS ---
Author Organization The [facility] in [place] Address [address] [place] [address] Care Team Providers Care Manager Qa Name Role Phone Kentrell Tsang Primary Care Provider REASON FOR VISIT CT- LMTCBx3 Encounters Encounter Location Date Provider Diagnosis [facility] [address] [place] [address] 09/03/2024 Kentrell Tsang Plan Of Treatment No Information Progress Notes * Latha STEEL EDOB:[birth year] (24 yo F)Acc No.[id number]:09/03/2024 Patient: Loan BROWN Latha Herndon :2000 A ge:24 Y S ex:Female Address:[address] [place] [address] * true * Date: Generated for Geovannyi dorys/Thereseg/eTransmitting on: 0 12/27/2024 06:07 PM EDT
--- OUTSIDE RECORDS SUMMARY | 2024-12-16 10:15 | XMS_ITS ---
Author Organization [facility] in [place] Address [address] [place] [address] Care Team Providers Care Advertising Assistant Manager Name Role Phone Sharan Kentrell Primary Care Provider Allergies No Known Allergies Reason For Referral Diagnosis 1 Hives (L50.9) Referral Organization [facility] Medicine Referring Provider First Name Kentrell Referring Provider Last Name Sharan Referring Provider Speciality Family Med davidne Referred Provider Ruy Pimentel Referred Provider Specialty Allergy/Immu nology Referral Priority Routine REASON FOR VISIT patient is co stomach pains, burping and burning pains after eating, lasting around 5 days Medications Medication SIG (Take, Route, Frequency, Duration) Notes Start Date End Date Status Meloxicam 15 MG 1 tablet Orally Once a day for 30 days 08/19/2024 Not-Taking CeleXA 10 MG 1 tablet Orally Once a day for 30 days 08/19/2024 Not-Taking Hyoscyamine Sulfate 0.125 MG 1-2 tabs SL SL every 4 hrs PRN abd pain 12/16/2024 Active Social History Tobacco Use: Social History Observation Description Date Details (start date - stop date) Never Smoker NA - NA Tobacco Use/Smoking Question Answer Notes Patient is a nonsmoker Tobacco Control (Standard) Question Answer Notes Tobacco use: Nonsmoker AUDIT-C (Standard) Question Answer Notes Did you have a drink containing alcohol in the p ast year? No Points 0 Interpretation Negative Vital Signs Weight 161 lbs 12/16/2024 Height 64 in 12/16/2024 Blood pressure systolic 116 mm Hg 12/17/19 25 Blood pressure diastolic 72 mm Hg 025 BMI 27.63 kg/m2 12/16/2024 Encounters Encounter Location Date Provider Diagnosis [facility] [address] [place] [address] 12/16/2024 Kentrell Brendeny Gastroenteritis K52. 9 and Hives L50.9 Assessments Encounter Date Diagnosis (ICD Code) Assessment Notes Treatment Notes Treatment Clinical Notes Section Notes 12/16/2024 Gastroenteritis (ICD-10 - K52.9) Get plenty of rest. Stay hydrated by sucking on ice chips or taking small sips of water. You can also try drinking clear soda, clear broths or noncaffeinated sports drinks. Stop eating solid foods for a few hours to let your stomach settle. East back into eating by eating bland, rxcx-vp-phelpa foods like crackers, toast, gelatin, bananas, rice and chicken. Try to avoid foods/substances including dairy products, caffeine, alcohol, nicotine and fatty or highly seasoned foods. Medications such as ibuprofen or tylenol can make your stomach more upset, so use sparingly if at all. Also avoid uvpm-yfl-oemrwla anti-diarrheal medications because it can make it harder for your body to eliminate the virus. 12/16/2024 Hives (ICD-10 - L50.9) Plan Of Treatment Medication Medication Name Sig Start Date Stop Date Notes Hyoscyamine Sulfate 0.125 MG 1-2 tabs SL SL every 4 hrs PRN abd pain 12/16/2024 Treatment Notes Assessment Notes Gastroenteritis Get plenty of rest. Stay hydrated by sucking on ice chips or taking small sips of water. You can also try drinking clear soda, clear broths or noncaffeinated sports drinks. Stop eating solid foods for a few hours to let your stomach settle. East back into eating by eating bland, wcno-su-kysnfs foods like crackers, toast, gelatin, bananas, rice and chicken. Try to avoid foods/substances including dairy products, caffeine, alcohol, nicotine and fatty or highly seasoned foods. Medications such as ibuprofen or tylenol can make your stomach more upset, so use sparingly if at all. Also avoid xdlz-mxg-qpovuzz anti-diarrheal medications because it can make it harder for your body to eliminate the virus. Referrals Referral Date Details 12/16/2024 12/16/2024, Ruy cedeño Progress Notes * Latha STEEL EDOB:[birth year] (24 yo F)Acc No.[id number]:12/16/2024 Progress Note Patient: Latha BOONE Provider: Gladys Tsang ([facility])MD :2000 A ge:24 Y S ex:Female Date:12/16/2024 Address:[address] [place] [address], [id number] Check In:02:07 PM ESTCheck O ut:03:09 PM EST Subjective: * Chief Complaints: * P atient is co stomach pains, burping and burning pains after eating, lasting around 5 days * HPI: G eneral: no unusual 6 days ago - sounds more like irritable bow- has constipatinthe nausda an vomiting. G astroenteritis: The patient complains of s ymptoms of the stomach flu. The symptoms have been present for 1 -2 days. The symptoms are m oderate. The patient h as not been exposed to sick contacts. Symptomatic treatment has included O TC medication. Associated symptoms include a bdominal pain, diarrhea, stomach cramps, nausea, vomiting, chills, fever. * ROS: G eneral/Constitutional: Recent Weight Gain d enies. S kin: Rash d enies. C ardiovascular: Edema d enies. P alpitations d enies. ? G astrointestinal: Comments S ee HPI for details. 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, right knee Modified On:12/04/2022/U Status:confirmed M54.16 Radiculopathy, lumba r region Modified On:12/04/2022 Status:confirmed R07.9 Chest pain Modified On:09/03/2023 Status:confirmed R53.83 Fatigue Modified On:09/03/2023 Status:confirmed L30.9 Eczema Modified On:12/19/2022 Status:confirmed J01.90 Acute sinusitis Modified On:12/19/2022 Status:confirmed J30.9 Allergic rhinitis Modified On:12/19/2022 Status:confirmed M65.4 De Quervain's tenosy novitis Modified On:12/19/2022 Status:confirmed M54.6 Bilateral thoracic b ack pain Modified On:12/19/2022 Status:confirmed 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) Modified On:12/04/2022 Status:confirmed M23.91 Internal derangement of knee, right Modified On:12/19/2022 Status:confirmed R19.7 Bloody diarrhea Modified On:12/19/2022 Status:confirmed J35.1 Hyperplasia of tonsi ls Modified On:12/19/2022 Status:confirmed G57.13 Meralgia paresthetic a, bilateral lower limbs Modified On:12/19/2022 Status:confirmed M23.006 Cyst of meniscus of right knee Modified On:12/19/2022 Status:confirmed U07.1 COVID-19 virus infec tion Modified On:12/19/2022 Status:confirmed I49.8 POTS (postural ortho static tachycardia syndrome) Modified On:12/05/2022U Status:confirmed E03.9 Hypothyroid Modified On:12/05/2022U Status:confirmed R04.0 Nosebleed Modified On:10/22/2023 Status:confirmed R55 Syncopal episodes Modified On:10/22/2023 Status:confirmed R04.0 Epistaxis Modified On:10/21/2023U Status:confirmed R55 Syncope Modified On:10/27/2023U Status:confirmed R51 Headache Modified On:01/31/2025W/U Status:confirmed M54.12 Cervical radiculopat hy Modified On:08/19/2024W/U Status:confirmed * Medical History: * Surgical History: E xp Lap Breast Reduction * Hospitalization/Major Diagno stic Procedure: N o Hospitalization History. * Family History: F ather: alive. M other: alive. B rother(s): alive. S ister(s): alive. 1 brother(s) , 1 sister(s) - healthy. . * Social History: T obacco Use: T obacco Control (Standard) T obacco use: N onsmoker Tobacco Use/Smoking P atient is a n onsmoker D rug/Alcohol: A PIERO-C (Standard) D id you have a drink containing alcohol in the past year? N o P oints 0 I nterpretation N egative * Medications: N ot-Taking/PRNCeleXA(Citalopram Hydrobromide) 10 MG Tablet 1 tablet Orally Once a day Meloxicam 15 MG Tablet 1 tablet Orally Once a day Medication List reviewed and reconciled with the patientNot-Taking/PRN CeleXA(Citalopram Hydrobromide) 10 MG Tablet 1 tablet Orally Once a day Not-Taking/PRN Meloxicam 15 MG Tablet 1 tablet Orally Once a day Medication List reviewed and reconciled with the patient * Allergies: N .K.D.A.no[Allergies Verified] Objective: * Vitals: W t:161lbs, Ht: 64 in, BP:116/72mm Hg, BMI:27.63Index, Ht-cm: 162.56 cm, Wt-k.03 kg. * Examination: G eneral Examination: GENERAL APPEARANCE: well developed, well nourished, in no acute distress. ENT: Normocephalic , Atraumatic. EYES: pupils equal, round, reactive to light and accomodations, sclera non-icteric. EARS: normal. ORAL CAVITY: mucosa moist. THROAT: clear. LUNGS: clear to auscultation bilaterally. CARDIO: regular rate and rhythm, S1, S2 normal, no murmurs. ABDOMEN: l iver nontender, ___soft, no significant tenderness, liver, spleen not felt, no rebound, negative Jasso's sign, no guarding or rigidity, no hepatosplenomegaly, no hernias present, no masses palpable, no rebound tenderness. SKIN: warm and dry, no suspicious lesions. EXTREMITIES: no clubbing, cyanosis, or edema. NEUROLOGIC: nonfocal, motor strength of upper/lower extremities intact , sensory exam intact. NECK/THYROID: neck supple, full range of motion, no cervical lymphadenopathy. Assessment: * Assessment: 1. G astroenteritis - K52.9 (Primary) 2 . H beth - L50.9 Plan: * Treatment: 2. H beth Referral To:Ruy Pimentel Allergy/Immunology Reason: * Procedure Codes: * Preventive Medicine: Screenings/Counseling: B [place] ACTION PLAN Above Normal BMI Follow-up D ietary management education, guidance, and counseling * * Sign off status: Completed Visit Status: C HK (Check Out) true * Provider: Gladys Tsang ([facility])MD Date: 0 12/16/2024 Generated for Geovannyi dorys/Contreras/eTransmitting on: 0 12/27/2024 06:07 PM EDT History and Physical Notes * HPI (History of Present Illness) Category Sub-Category Detail Notes Category Not es General no unusual 6 days ago - sounds more like irritable bow- has constipatinthe nausda an vomiting Gastroenteritis The patient complains of symptoms of the stomach flu The symptoms have been present for 1-2 d ays The symptoms are moderate The patient has not been exposed to sick contacts Symptomatic treatment has included OTC m edication Associated symptoms include abdominal pa in, diarrhea, stomach cramps, nausea, vomiting, chills, fever Examination Category Sub-Category Detail Notes Category Not es General Examination GENERAL APPEARANCE: well dev eloped, well nourished, in no acute distress ENT: Normocephalic , Atra umatic EYES: pupils equal, round, reactive to light and accomodations, sclera non-icteric EARS: normal THROAT: clear CARDIO: regular rate and rhy thm, S1, S2 normal, no murmurs LUNGS: clear to auscultatio n bilaterally ABDOMEN: liver nontender, ___ soft, no significant tenderness, liver, spleen not felt, no rebound, negative Jasso's sign, no guarding or rigidity, no hepatosplenomegaly, no hernias present, no masses palpable, no rebound tenderness NEUROLOGIC: nonfocal, motor stre ngth of upper/lower extremities intact , sensory exam intact SKIN: warm and dry, no reji picious lesions EXTREMITIES: no clubbing, cyanosi s, or edema ORAL CAVITY: mucosa moist NECK/THYROID: neck supple, full ra nge of motion, no cervical lymphadenopathy Consultation Request Notes Referral Date Referring Provider Referred Provider Not es 12/16/2024 Kentrell Tsang Todd
[2024-12-27 18:03] VITALS: BP 162/100; PULSE 78; TEMP 36.6; O2SAT 100; BMI 28.3
--- OUTSIDE RECORDS SUMMARY | 2024-12-27 18:08 | XMS_ITS | Encounter Summary ---
Author Organization [facility] Address [address] [facility] [place] [address] Care Team Providers Care College Teacher Name Role Phone Fady Tsang MD Primary Care Provider [phone] Encounter Details Date Type Department Care Team (Late Contact Info) Description 03/04/2024 Abstract [facility] BCP OB [address] [facility] [place] [phone] Pan Martínez, DO [address] [facility] [place] [address] Social History Tobacco Use Types Packs/Day Years Used Date Smoking Tobacco: Never Smokeless Tobacco: Never Alcohol Use Standard Drinks/Week Comments Never 0 (1 standard drink = 0.6 oz pur e alcohol) Caffeine intake: none Comments Yes Sex and Gender Information Value Date Recorded Sex Assigned at Not on file Legal Sex Female 8:32 PM EDT Gender Identity Not on file Sexual Orientation Not on file documented as of this encounter Plan of Treatment Upcoming Encounters Date Type Department Care Team (Late Contact Info) Description 01/19/2025 11:00 AM EDT Office Visit [facility] [address] [facility] [address] [place] [phone] Ruy Pimentel MD [address] [facility] [address] [place] [address] documented as of this encounter Visit Diagnoses Not on filedocumented in this encounter Care Teams College Teacher Relationship Specialty Start Date End Date Fady Tsang MD PCP - General Family Medicine 04/21/23 documented as of this encounter
--- OUTSIDE RECORDS SUMMARY | 2024-12-27 18:08 | XMS_ITS | Encounter Summary ---
Author Organization [facility] Address [address] [place] [address] Care Team Providers Care Asphalt Smoother Name Role Phone Fady Tsang MD Primary Care Provider [phone] Encounter Details Date Type Department Care Team (Late Contact Info) Description 05/10/2024 Clinisync Result Encounter [facility] External Department Unsolicited Aagta Meza PA [address] [place] [address] [place] [address] Social History Tobacco Use Types Packs/Day Years Used Date Smoking Tobacco: Never Smokeless Tobacco: Never Alcohol Use Standard Drinks/Week Comments Yes 4 (1 standard drink = 0.6 oz pur [...] Office Visit [facility] [address] [phone] Ruy Pimentel MD [address] [address] documented as of this encounter Procedures Procedure Name Priority Date/Time Associated Diagnosis Comments US OB GROWTH 05/10/2024 2:40 PM EDT documented in this encounter Results * US OB GROWTH (05/10/2024 2:40 PM EDT) Anatomical Region Laterality Modality Other 05/10/2024 2:40 PM EDT Narrative 05/10/2024 2:42 PM EDT [address] [address] Ultrasound Report Signed Patient: LATHA STEEL MR#: [id number] : 2000 Acct:[id number] Age/Sex: 24 / F ADM Date: 05/10/24 Loc: [facility] Attending Dr: Agata Meza Ordering Physician: Agata Meza Date of Service: 05/10/24 Procedure(s): US OB growth Accession Number(s): [id number] cc: Agata Meza; Fady Tsang M.D. [place] [address] Patient Name: LATHA STEEL MRN: [id number] date: 2000 Sex: F Assigned Patient Location: [facility] Current Patient Location: [facility] Accession/Order Number: [id number] Exam Date: 05/10/2024 13:59 Report Date: 05/10/2024 14:40 At the request of: AGATA MEZA Procedure: US OB growth EXAMINATION: US OB growth HISTORY: SIZE INCONSISTENT WITH DATES COMPARISON: No relevant comparison available. FINDINGS: Heart Rate: 132 bpm Amniotic Fluid Volume: 12.4 cm, largest fluid pocket 4.5 cm Number: 1 Position: Cephalic presentation, longitudinal lie BIOMETRY: BPD: 7.76 cm; 31 weeks 1 day; 73.40 % HC: 28.38 cm; 31 weeks 1 day; 47.60 % AC: 26.24 cm; 30 weeks 3 days; 56.60 % FL: 5.96 cm; 30 weeks 0 days; 65.60 % EFW: 1611.44 g; 63.40 %, 3 lbs. 9 oz. FL/AC: 22.71 FL/BPD: 76.80 HC/AC: 1.08 GESTATIONAL AGE: Age by EDC: 30 weeks 0 days DEN by EDC: 2024-07-19 Age by US: 31 weeks DEN by US: 2024-07-12 US/US OB growth IMPRESSION: Normal interval growth Electronically authenticated by: JULISA ALVAREZ Date: 05/10/2024 14:40 Dictated By: Julisa Alvarez M.D. Signed By: 05/10/24 1442 DD/ 1440 TD/TT: Track Equipment Operator: Procedure Note Radiology, Radiologist, - 05/10/[address] [address] Ultrasound Report Signed Patient: LATHA STEEL EMR#: [id number] : 2000Acct:[id number] Age/Sex: 24 / FADM Date: 05/10/24 Loc: [facility] Attending Dr: Agata Meza Ordering Physician: Agata Meza Date of Service: 05/10/24 Procedure(s): US OB growth Accession Number(s): [id number] cc: Agata Meza; Fady Tsang M.D. The [place] [id number] Patient Name: LATHA STEEL MRN: [facility]:[id number] date: 2000 Sex: F Assigned Patient Location: [facility] Current Patient Location: [facility] Accession/Order Number: [id number] Exam Date: 05/10/2024 13:59 Report Date: 05/10/2024 14:40 At the request of: AGATA MEZA Procedure: US OB growth EXAMINATION: US OB growth HISTORY: SIZE INCONSISTENT WITH DATES COMPARISON: No relevant comparison available. FINDINGS: Heart Rate: 132 bpm Amniotic Fluid Volume: 12.4 cm, largest fluid pocket 4.5 cm Number: 1 Position: Cephalic presentation, longitudinal lie BIOMETRY: BPD: 7.76 cm; 31 weeks 1 day; 73.40 % HC: 28.38 cm; 31 weeks 1 day; 47.60 % AC: 26.24 cm; 30 weeks 3 days; 56.60 % FL: 5.96 cm; 30 weeks 0 days; 65.60 % EFW: 1611.44 g; 63.40 %, 3 lbs. 9 oz. FL/AC: 22.71 FL/BPD: 76.80 HC/AC: 1.08 GESTATIONAL AGE: Age by EDC: 30 weeks 0 days DEN by EDC: 2024-07-19 Age by US: 31 weeks DEN by US: 2024-07-12 US/US OB growth IMPRESSION: Normal interval growth Electronically authenticated by: JULISA ALVAREZ Date: 05/10/2024 14:40 Dictated By: Julisa Alvarez M.D. Signed By:05/10/241441 DD/ 39 TD/TT: Track Equipment Operator: Agata [facility] Final Result documented in this encounter Visit Diagnoses Not on filedocumented in this encounter Care Teams Asphalt Smoother Relationship Specialty Start Date End Date Fady Tsang MD PCP - General Family Medicine 04/21/23 documented as of this encounter
--- OUTSIDE RECORDS SUMMARY | 2024-12-27 18:08 | XMS_ITS | Encounter Summary ---
Author Organization [facility] Address [address] [facility] [place] [address] Care Team Providers Care Reconciliation Coordinator Name Role Phone Fady Tsang MD Primary Care Provider [phone] Encounter Details Date Type Department Care Team (Late Contact Info) Description 12/29/2023 Abstract [facility] BCP OB [address] [place] [phone] Mirtha Lindquist LPN [address] [place] [address] Social History Tobacco Use Types Packs/Day Years [...] Office Visit [facility] [address] [facility] [place] [phone] Ruy Pimentel MD [address] [facility] [address] [place] [address] documented as of this encounter Visit Diagnoses Not on filedocumented in this encounter Care Teams Reconciliation Coordinator Relationship Specialty Start Date End Date Fady Tsang MD PCP - General Family Medicine 04/21/23 documented as of this encounter
--- OUTSIDE RECORDS SUMMARY | 2024-12-27 18:08 | XMS_ITS | Encounter Summary ---
Author Organization [facility] Address [address] [facility] [address] Care Team Providers Care Revenue Field Agent Name Role Phone Fady Tsang MD Primary Care Provider [phone] Encounter Details Date Type Department Care Team (Late Contact Info) Description 03/07/2024 Abstract [facility] BCP OB [address] [facility] [place] [phone] Pan Martínez, DO [address] [facility] [place] [address] Social History Tobacco Use Types Packs/Day Years [...] [facility] [address] [place] [address] [place] [phone] Ruy Pimentel MD [address] [place] [address] documented as of this encounter Visit Diagnoses Not on filedocumented in this encounter Care Teams Revenue Field Agent Relationship Specialty Start Date End Date Fady Tsang MD PCP - General Family Medicine 04/21/23 documented as of this encounter
--- OUTSIDE RECORDS SUMMARY | 2024-12-27 18:08 | XMS_ITS | Encounter Summary ---
Author Organization [facility] Address [address] [facility] [place] [address] Care Team Providers Care Coding Educator Name Role Phone Fady Tsang MD Primary Care Provider [phone] Encounter Details Date Type Department Care Team (Late Contact Info) Description 06/22/2024 Abstract [facility] BCP OB [address] [facility] [place] [phone] Pan Martínez, DO [address] [facility] [place] [address] Social History Tobacco Use Types Packs/Day Years [...] [facility] [address] [facility] [address] [place] [phone] Ruy Pimentel MD [address] [place] [address] documented as of this encounter Visit Diagnoses Not on filedocumented in this encounter Care Teams Coding Educator Relationship Specialty Start Date End Date Fady Tsang MD PCP - General Family Medicine 04/21/23 documented as of this encounter
--- OUTSIDE RECORDS SUMMARY | 2024-12-27 18:08 | XMS_ITS | Encounter Summary ---
Author Organization [facility] Address [address] [place] [address] Care Team Providers Care Ui Ux Web Developer Name Role Phone Fady Tsang MD Primary Care Provider [phone] Encounter Details Date Type Department Care Team ([facility] Contact Info) Description 11/23/2023 Abstract [facility] CI ENT [address] [facility] [address] [place] [phone] Kareen Alicea RN [address] [facility] [address] [place] [address] Social History Tobacco Use Types Packs/Day Years Used Date Smoking Tobacco: Never Smokeless Tobacco: Never Alcohol Use Standard Drinks/Week Comments Never 0 (1 standard drink = 0.6 oz pur e alcohol) Caffeine intake: none Comments Unknown Sex and Gender Information Value Date Recorded Sex Assigned at Not on file Legal Sex Female 8:32 PM EDT Gender Identity Not on file Sexual Orientation Not on file documented as of this encounter Plan of Treatment Upcoming Encounters Date Type Department Care Team (Late Contact Info) Description 01/19/2025 11:00 AM EDT Office Visit [facility] [address] [facility] [address] [place] [phone] Ruy Pimentel MD [address] [facility] [address] [place] [address] documented as of this encounter Visit Diagnoses Not on filedocumented in this encounter Care Teams Ui Ux Web Developer Relationship Specialty Start Date End Date Fady Tsang MD PCP - General Family Medicine 04/21/23 documented as of this encounter
--- OUTSIDE RECORDS SUMMARY | 2024-12-27 18:08 | XMS_ITS | Encounter Summary ---
Author Organization [facility] Address [address] [place] [address] Care Team Providers Care Water Control Supervisor Name Role Phone Fady Tsang MD Primary Care Provider [phone] Encounter Details Date Type Department Care Team (Late st Contact Info) Description 12/19/2024 Telephone [facility] OB [address] [place] [address] Pan Martínez, DO [address] [place], [place] [phone] Social History Tobacco Use Types Packs/Day Years Used Date Smoking Tobacco: Never Smokeless Tobacco: Never Alcohol Use Standard Drinks/Week Comments Yes 4 (1 standard drink = 0.6 oz pur e alcohol) Caffeine intake: none Comments No Sex and Gender Information Value Date Recorded Sex Assigned at Not on file Legal Sex Female 8:32 PM EDT Gender Identity Not on file Sexual Orientation Not on file documented as of this encounter Miscellaneous Notes * Telephone Encounter - Aimee Burleson LPN - 12/21/2024 1:40 PM EDT Patient returned call and she states that this is left breast directly below nipple and she can almost squeeze this. Patient was advised this order would be sent to [facility] for her to schedule. PVU * Telephone Encounter - Aimee Burleson LPN - 12/21/2024 1:34 PM EDT Patient returned call today and left a message for a call back. Returned call and phone now states voicemail not set up. * Telephone Encounter - Aimee Burleson LPN - 12/21/2024 9:36 AM EDT Patient was called message left to return call to office so we can get the correct testing ordered that she talked to provider about. Mychart message also sent for the patient to return call to office so this can be taken care of for her. * Telephone Encounter - Aimee Burleson LPN - 12/20/2024 9:32 AM EDT Patient was called message was left asking for a return call to office so orders can be sent in forthe patient. * Telephone Encounter - Aimee Burleson LPN - 12/19/2024 10:47 AM EDT Per provider need to order imaging for the patient. Patient was called voicemail was left to returncall to office to find out which side and breast so these orders can be completed for her. documented in this encounter Plan of Treatment Upcoming Encounters Date Type Department Care Team (Late st Contact Info) Description 01/19/2025 11:00 AM EDT Office Visit [facility] [address] [facility] [address] [place] [phone] Ruy Pimentel MD [address] [facility] 360 [place] [address] Scheduled Orders Name Type Priority Associated Diagnoses Orde r Schedule Left breast US complete Imaging Routine Mass overlapping multiple quadrants of left breast Expected: 12/21/2024, Expires: 02/20/2026 documented as of this encounter Visit Diagnoses Diagnosis Mass overlapping multiple quadrants of left breast documented in this encounter Care Teams Water Control Supervisor Relationship Specialty Start Date End Date Fady Tsang MD PCP - General Family Medicine 04/21/23 documented as of this encounter
--- OUTSIDE RECORDS SUMMARY | 2024-12-27 18:08 | XMS_ITS | Encounter Summary ---
Author Organization [facility] Address [address] [place] [address] Care Team Providers Care Communications Attendant Name Role Phone Fady Tsang MD Primary Care Provider [phone] Encounter Details Date Type Department Care Team (Late Contact Info) Description 03/02/2024 Clinisync Result Encounter [facility] External Department Unsolicited Agata Meza PA [address] [place] [address] [place] [address] Social History Tobacco Use Types Packs/Day Years [...] Office Visit [facility] [address] [phone] Ruy Pimentel MD [address] [address] documented as of this encounter Procedures Procedure Name Priority Date/Time Associated Diagnosis Comments US OB ANATOMY 03/02/2024 4:03 PM EDT documented in this encounter Results * US OB ANATOMY (03/02/2024 4:03 PM EDT) Anatomical Region Laterality Modality Other 03/02/2024 4:03 PM EDT Narrative 03/02/2024 4:06 PM EDT [address] [address] Ultrasound Report Signed Patient: LATHA STEEL MR#: [id number] : 2000 Acct:[id number] Age/Sex: 23 / F ADM Date: 03/02/24 Loc: [facility] Attending Dr: Agata Meza Ordering Physician: Agata Meza Date of Service: 03/02/24 Procedure(s): US OB anatomy Accession Number(s): [id number] cc: Agata Meza; Fady Tsang M.D. [address] [address] Patient Name: LATHA STEEL MRN: [facility]:[id number] date: 2000 Sex: F Assigned Patient Location: [facility] Current Patient Location: [facility] Accession/Order Number: [id number] Exam Date: 03/02/2024 14:41 Report Date: 03/02/2024 16:03 At the request of: AGATA MEZA Procedure: US OB anatomy EXAMINATION: US OB anatomy, US OB cervical length HISTORY: ANATOMY COMPARISON: No relevant comparison available. TECHNIQUE: Transabdominal sonographic examination was performed for obstetrical and evaluation. FINDINGS: Number: 1 Heart Rate: 138 bpm H.B. /min Amniotic Fluid Volume: Subjectively normal Placental Location: Anterior. The placental edge is 7.0 cm from the internal cervical os Cervix Length: 4.32 cm , closed Normal anatomy: Lateral ventricles, cerebellum, posterior fossa, nose, lips, orbits, four-chamber heart, RVOT, LVOT, diaphragm, stomach, kidneys, abdominal cord insertion, bladder, umbilical arteries, three-vessel cord, spine, extremities BIOMETRY: BPD: 4.49 cm; 19 weeks 4 days; 26.30 % HC: 17.95 cm; 20 weeks 3 days; 53.50 % AC: 15.31 cm; 20 weeks 4 days; 56.80 % FL: 3.39 cm; 20 weeks 5 days; 60.30 % EFW:330 g; 67 %, 13 ounces FL/AC: 22.14 FL/BPD: 75.50 HC/AC: 1.17 GESTATIONAL AGE: Age by EDC: 20 weeks 1 day Age by current US: 20 weeks 2 days DEN by current US: 2024-07-18 DEN by EDC: 2024-07-19 US/US OB anatomy IMPRESSION: Normal anatomy scan Closed cervix measuring 4.3 cm in length *Reference: [employer] Practice Guideline for the performance of Obstetric Ultrasound Examinations, April 19, 2007. Electronically authenticated by: JULISA ALVAREZ Date: 03/02/2024 16:03 Dictated By: Julisa Alvarez M.D. Signed By: 03/02/24 1606 DD/ 1603 TD/TT: Television And Radio Repairer: Procedure Note Radiology, Radiologist, MD - 03/02/2024 [place] [address] Ultrasound Report Signed Patient: LATHA STEEL EMR#: [id number] : 2000Acct:[id number] Age/Sex: 23 / FADM Date: 03/02/24 Loc: [facility] Attending Dr: Agata Meza Ordering Physician: Agata Meza Date of Service: 03/02/24 Procedure(s): US OB anatomy Accession Number(s): [id number] cc: Agata Meza; Fady Tsang M.D. The [address] [address] Patient Name: LATHA STEEL MRN: [facility]:[id number] date: 2000 Sex: F Assigned Patient Location: [facility] Current Patient Location: [facility] Accession/Order Number: [id number] Exam Date: 03/02/2024 14:41 Report Date: 03/02/2024 16:03 At the request of: AGATA MEZA Procedure: US OB anatomy EXAMINATION: US OB anatomy, US OB cervical length HISTORY: ANATOMY COMPARISON: No relevant comparison available. TECHNIQUE: Transabdominal sonographic examination was performed for obstetrical and evaluation. FINDINGS: Number: 1 Heart Rate: 138 bpm H.B. /min Amniotic Fluid Volume: Subjectively normal Placental Location: Anterior. The placental edge is 7.0 cm from theinternal cervical os Cervix Length: 4.32 cm , closed Normal anatomy: Lateral ventricles, cerebellum, posterior fossa, nose,lips, orbits, four-chamber heart, RVOT, LVOT, diaphragm, stomach, kidneys,abdominal cord insertion, bladder, umbilical arteries, three-vessel cord, spine, extremities BIOMETRY: BPD: 4.49 cm; 19 weeks 4 days; 26.30 % HC: 17.95 cm; 20 weeks 3 days; 53.50 % AC: 15.31 cm; 20 weeks 4 days; 56.80 % FL: 3.39 cm; 20 weeks 5 days; 60.30 % EFW:330 g; 67 %, 13 ounces FL/AC: 22.14 FL/BPD: 75.50 HC/AC: 1.17 GESTATIONAL AGE: Age by EDC: 20 weeks 1 day Age by current US: 20 weeks 2 days DEN by current US: 2024-07-18 DEN by EDC: 2024-07-19 US/US OB anatomy IMPRESSION: Normal anatomy scan Closed cervix measuring 4.3 cm in length *Reference: [employer] Practice Guideline for the performance of Obstetric Ultrasound Examinations, April 19, 2007. Electronically authenticated by: JULISA ALVAREZ Date: 03/02/2024 16:03 Dictated By: Julisa Alvarez M.D. Signed By:03/02/246 DD/ 02 TD/TT: Television And Radio Repairer: us Agata [facility] Final Result documented in this encounter Visit Diagnoses Not on filedocumented in this encounter Care Teams Communications Attendant Relationship Specialty Start Date End Date Fady Tsang MD PCP - General Family Medicine 04/21/23 documented as of this encounter
--- OUTSIDE RECORDS SUMMARY | 2024-12-27 18:08 | XMS_ITS | Encounter Summary ---
Author Organization [facility] Address [address] [facility] [place] [address] Care Team Providers Care Reduction Furnace Operator Name Role Phone Fady Tsang MD Primary Care Provider [phone] Encounter Details Date Type Department Care Team (Late Contact Info) Description 07/13/2024 Abstract [facility] BCP OB [address] [facility] [place] [phone] Pan Martínez, DO [address] [facility] [place] [address] Social History Tobacco Use Types Packs/Day Years [...] [facility] [address] [facility] [address] [place] [phone] Ruy Pimentel MD [address] [place] [address] documented as of this encounter Visit Diagnoses Not on filedocumented in this encounter Care Teams Reduction Furnace Operator Relationship Specialty Start Date End Date Fady Tsang MD PCP - General Family Medicine 04/21/23 documented as of this encounter
--- OUTSIDE RECORDS SUMMARY | 2024-12-27 18:08 | XMS_ITS | Encounter Summary ---
Author Organization [facility] Address [address] [place] [address] Care Team Providers Care Gutter Installer Name Role Phone Fady Tsang MD Primary Care Provider [phone] Encounter Details Date Type Department Care Team (Late Contact Info) Description 03/02/2024 Clinisync Result Encounter [facility] External Department Unsolicited Agata Meza PA [address] [place] [address] [place] [address] Social History Tobacco Use Types Packs/Day Years [...] Office Visit [facility] [address] [phone] Ruy Pimentel MD [address] [address] documented as of this encounter Procedures Procedure Name Priority Date/Time Associated Diagnosis Comments US OB CERVICAL LENGTH 03/02/2024 4:03 PM EDT documented in this encounter Results * US OB CERVICAL LENGTH (03/02/2024 4:03 PM EDT) Anatomical Region Laterality Modality Other 03/02/2024 4:03 PM EDT Narrative 03/02/2024 4:06 PM EDT [address] [address] Ultrasound Report Signed Patient: LATHA STEEL MR#: [id number] : 2000 Acct:[id number] Age/Sex: 23 / F ADM Date: 03/02/24 Loc: [facility] Attending Dr: Agata Meza Ordering Physician: Agata Meza Date of Service: 03/02/24 Procedure(s): US OB cervical length Accession Number(s): [id number] cc: Agata Meza; Fady Tsang M.D. [address] [address] Patient Name: LATHA STEEL MRN: [id number] date: 2000 Sex: F Assigned Patient Location: [facility] Current Patient Location: [facility] Accession/Order Number: [id number] Exam Date: 03/02/2024 14:41 Report Date: 03/02/2024 16:03 At the request of: AGATA MEZA Procedure: US OB cervical length EXAMINATION: US OB anatomy, US OB cervical [...] 2024-07-18 DEN by EDC: 2024-07-19 US/US OB cervical length IMPRESSION: Normal anatomy scan Closed cervix measuring 4.3 cm in length *Reference: [facility] Practice Guideline for the performance of Obstetric Ultrasound Examinations, April 19, 2007. Electronically authenticated by: JULISA ALVAREZ Date: 03/02/2024 16:03 Dictated By: Julisa Alvarez M.D. Signed By: 03/02/24 1606 DD/ 02 TD/TT: Cable Tester: Procedure Note Radiology, Radiologist, MD - 03/02/2024 [place] [address] Ultrasound Report Signed Patient: LATHA STEEL EMR#: [id number] : 2000Acct:[id number] Age/Sex: 23 / FADM Date: 03/02/24 Loc: [facility] Attending Dr: Agata Meza Ordering Physician: Agata Meza Date of Service: 03/02/24 Procedure(s): US OB cervical length Accession Number(s): [id number] cc: Agata Meza; Fady Tsang M.D. [facility] [place] [address] Patient Name: LATHA STEEL MRN: [id number] date: 2000 Sex: F Assigned Patient Location: [facility] Current Patient Location: [facility] Accession/Order Number: [id number] Exam Date: 03/02/2024 14:41 Report Date: 03/02/2024 16:03 At the request of: AGATA MEZA Procedure: US OB cervical length EXAMINATION: US OB anatomy, US OB cervical [...] 2024-07-18 DEN by EDC: 2024-07-19 US/US OB cervical length IMPRESSION: Normal anatomy scan Closed cervix measuring 4.3 cm in length *Reference: [facility] Practice Guideline for the performance of Obstetric Ultrasound Examinations, April 19, 2007. Electronically authenticated by: JULISA ALVAREZ Date: 03/02/2024 16:03 Dictated By: Julisa Alvarez M.D. Signed By:03/02/246 DD/ 02 TD/TT: Cable Tester: us Agata [facility] Final Result documented in this encounter Visit Diagnoses Not on filedocumented in this encounter Care Teams Gutter Installer Relationship Specialty Start Date End Date Fady Tsang MD PCP - General Family Medicine 04/21/23 documented as of this encounter
--- OUTSIDE RECORDS SUMMARY | 2024-12-27 18:08 | XMS_ITS | Clinical Summary ---
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 History of shingles 11/23/2023 History of 2019 novel coronavirus disease (COVID -19) 11/23/2023 Acute frontal sinusitis 11/19/2023 Allergic rhinitis 11/19/2023 Chronic adenotonsillitis 11/19/2023 Hypertrophy of tonsils with hypertrophy of adeno ids 11/19/2023 Pharyngitis 11/19/2023 UARS (upper airway resistance syndrome) 11/19/19 24 Encounters Date Type Department Care Team Description 12/19/[address] [facility] [address] [place] [address] Pan Martínez DO from Last 3 Months Family History Medical History Relation Name Comments No Known Problems Brother No Known Problems Father Heart disease Maternal Grandfather Breast cancer Maternal Grandmother Nat No Known Problems Mother Heart disease Paternal Grandfather Diabetes Paternal Grandmother Kathya No Known Problems Sister Relation Name Status Comments Brother Alive Father Alive Maternal Grandfather Maternal Grandmother Nat Mother Alive Paternal Grandfather Paternal Grandmother Kathya Sister Alive Social History Tobacco Use Types Packs/Day Years Used Date Smoking Tobacco: Never Smokeless Tobacco: Never Tobacco Cessation:Counseling Given: Not Answered Alcohol Use Standard Drinks/Week Comments Yes 4 (1 standard drink = 0.6 oz pur e alcohol) Caffeine intake: none Comments No Sex and Gender Information Value Date Recorded Sex Assigned at Not on file Legal Sex Female 8:32 PM EDT Gender Identity Not on file Sexual Orientation Not on file Last Filed Vital Signs Vital Sign Reading Time Taken Comments Blood Pressure 114/74 09/01/2024 2:46 PM EST Pulse - - Temperature - - Respiratory Rate - - Oxygen Saturation - - Inhaled Oxygen Concentration - - Weight 77.5 kg (170 lb 12.8 oz) 09/01/2024 2:46 PM EST Height 162.6 cm (5' 4 ) 04/21/2023 3:18 PM EDT Body Mass Index 29.32 04/21/2023 3:18 PM EDT Plan of Treatment Upcoming Encounters Date Type Department Care Team (Late st Contact Info) Description 01/19/2025 11:00 AM EDT Office Visit [facility] [address] [phone] Ruy Pimentel MD [address] [address] Insurance [facility] [employer] [place] Care Teams Tunneling Machine Operator Relationship Specialty Start Date End Date Fady Tsang MD PCP - General Family Medicine 04/21/23
--- OUTSIDE RECORDS SUMMARY | 2024-12-27 18:08 | XMS_ITS | Patient Health Record ---
Author Organization [facility] in [place] Address [address] [place] [address] Care Team Providers Care Training And Development Officer Name Role Phone Kentrell Tsang Primary Care Provider [phone] Allergies No Known Allergies Results Component Value Reference Range Notes CBC AUTO DIFF Reviewed date:04/08/2024 12:56:06 PM Interpretation: Performing Lab: Notes/Report: [facility] , White Blood Count 9.4 4.0-11.0 10 3/uL Red Blood Count 3.59 4.20-5.40 10 6/uL Hemoglobin 10.9 12.0-16.0 g/dL Hematocrit 32.0 36.0-48.0 % Mean Corpuscular Volume 89.1 81.0-99.0 fL Mean Corpuscular Hemoglobin 30.4 26.7-34.0 pg Mean Corpuscular HGB Conc 34.1 29.9-35.2 g/dL Red Cell Distribution Width 12.6 11.0-15.0 % Platelet Count 229 150-450 10 3/uL Mean Platelet Volume 11.4 9.5-13.5 fL Neutrophils Percent Auto 74.5 43.0-75.0 % Lymphocytes Percent Auto 20.2 20.5-60.0 % Monocytes Percent Auto 4.3 1.7-12.0 % Eosinophils Percent Auto 0.3 0.9-7.0 % Basophils Percent Auto 0.4 0.2-2.0 % Immature Granulocytes Pct Auto 0.3 0.0-0.5 % Neutrophils Absolute Auto 7.0 1.4-6.5 10 3/uL Lymphocytes Absolute Auto 1.9 1.2-3.8 10 3/uL Monocytes Absolute Auto 0.4 0.3-0.8 10 3/uL Eosinophils Absolute Auto 0.0 0.0-0.7 10 3/uL Basophils Absolute Auto 0.0 0.0-0.1 10 3/uL Immature Granulocytes Abs Auto 0.03 0.00-0.03 10 3/uL Performing Lab: see note ML - [facility] LB Glucose 1 Hour Reviewed date:04/08/2024 04:05:07 PM Interpretation: Performing Lab: Notes/Report: [facility] , Glucose 1 Hour 121 <130 mg/dL Performing Lab: see note ML - [facility] LB CBC AUTO DIFF Reviewed date:07/14/2024 05:56:16 PM Interpretation: Performing Lab: Notes/Report: [facility] , White Blood Count 24.5 4.0-11.0 10 3/uL Red Blood Count 3.97 4.20-5.40 10 6/uL Hemoglobin 11.2 12.0-16.0 g/dL Hematocrit 34.2 36.0-48.0 % Mean Corpuscular Volume 86.1 81.0-99.0 fL Mean Corpuscular Hemoglobin 28.2 26.7-34.0 pg Mean Corpuscular HGB Conc 32.7 29.9-35.2 g/dL Red Cell Distribution Width 13.5 11.0-15.0 % Platelet Count 302 150-450 10 3/uL Mean Platelet Volume 11.5 9.5-13.5 fL Performing Lab: see note - [facility] LB Manual Differential Reviewed date:07/14/2024 05:56:16 PM Interpretation: Performing Lab: Notes/Report: [facility] , Segmented Neutrophils % Manual 82.0 43.0-75.0 Lymphocytes Percent Manual 13.0 20.5-60.0 % Monocytes Percent Manual 4.0 1.7-12.0 % Eosinophils Percent Manual 0.0 0.9-7.0 % Basophils Percent Manual 1.0 0.2-2.0 % Segmented Neut Absolute Manual 20.09 1.4-6.5 10 3/uL Lymphocytes Absolute Manual 3.18 1.20-3.80 10 3/uL Monocytes Absolute Manual 0.98 0.30-0.80 10 3/uL Eosinophils Absolute Manual 0.00 0.00-0.70 10 3/uL Basophils Abs Manual 0.24 0.00-0.10 1 0 3/uL Performing Lab: see note - [facility] Box Test Reviewed date:07/14/2024 05:56:16 PM Interpretation: Performing Lab: Notes/Report: RADHA NOVAK- TO [facility] , BOX Test Sent Out [employer] [facility] BOX Test Reference Lab [facility] BOX Test Date Sent 07/13/24 BOX Test Result SEE SCANNED REPORT Performing Lab: see note - [facility] CT head/brain wo con Reviewed date:09/03/2024 02:00:54 PM Interpretation: Performing Lab: Notes/Report: Source Facility: [place] [address] CT Scan Report Signed Patient: LATHA STEEL MR#: [id number] : 2000 Acct:[id number] Age/Sex: 24 / F ADM Date: 09/02/24 Loc: CT Attending Dr: Jesus Tsang M.D. Ordering Physician: Jesus Tsang M.D. Date of Service: 09/02/24 Procedure(s): CT head/brain wo con Accession Number(s): [id number] cc: Jesus Tsang M.D. [place] [address] Patient Name: LATHA STEEL MRN: [facility]:[id number] date: 2000 Sex: F Assigned Patient Location: CT Current Patient Location: CT Accession/Order Number: [id number] Exam Date: 09/02/2024 08:43 Report Date: 09/02/2024 18:20 At the request of: JESUS TSANG Procedure: CT head/brain wo con EXAMINATION: CT head/brain wo con HISTORY: Cervical Radiculopathy COMPARISON: CT head 10/21/2023 TECHNIQUE: Axial CT images were obtained without IV contrast. Dose reduction techniques were achieved by using automated exposure control and/or adjustment of mA and/or kV according to patient size and/or use of iterative reconstruction technique. FINDINGS: BRAIN: No edema, hemorrhage, mass, acute infarction, or inappropriate atrophy. CSF SPACES: No hydrocephalus, subarachnoid hemorrhage, or mass. Appropriate for age. SKULL: No fracture, mass, or other significant visible lesion. SINUSES: No significant mucosal thickening or fluid on the limited views. ORBITS: No appreciable abnormality on the limited views. OTHER: Negative CT/CT head/brain wo con IMPRESSION: 1. No appreciable abnormality. Electronically authenticated by: RONNIE COELHO Date: 09/02/2024 18:20 Dictated By: Ronnie Coelho M.D. Signed By: 09/02/241822 DD/ 19 TD/TT: Senior Copywriter: [place] [address] CT Scan Report Signed Patient: NERIS STEEL MR#: [id number] : 2000 Acct:[id number] Age/Sex: 24 / F ADM Date: 09/02/24 Loc: CT Attending Dr: Max Tsang M.D. Ordering Physician: Jesus Tsang M.D. Date of Service: 09/02/24 Procedure(s): CT head/brain wo con Accession Number(s): [id number] cc: Jesus Tsang M.D. The [place] [address] Patient Name: LATHA STEEL MRN: [facility]:[id number] date: 2000 Sex: F Assigned Patient Location: CT Current Patient Loca tion: CT Accession/Order Numb er: [id number] Exam Date: 09/02/2024 08:43 Report Date: 09/02/2024 18:20 At the request of: JESUS TSANG Procedure: CT head/b rain wo con EXAMINATION: CT head/brain wo con HISTORY: Cervical Radiculopathy COMPARISON: CT head 10/21/2023 TECHNIQUE: Axial CT images were obtained without IV contrast. Dose reduction techniques were achi eved by using automated exposure control and/or adjustment of mA and/or kV acco rding to patient size and/or use of iterative reconstruction technique. FINDINGS: BRAIN: No edema, hemorrhage, mass, acute infarction, or inappropriate atrophy. CSF SPACES: No hydrocephalus, subarachnoid hemorrhage, or mass. Appropriate for age. SKULL: No fracture, mass, or other significant visible lesion. SINUSES: No signific ant mucosal thickening or fluid on the limited views. ORBITS: No appreciab le abnormality on the limited views. OTHER: Negative C T/CT head/brain wo con IMPRESSION: 1. No appreciable abnormality. Electronically authenticated by: RONNIE COELHO Date: 09/02/2024 18:20 Dictated By: Ronnie Coelho M.D. Signed By: 09/02/241822 DD/ 19 TD/TT: Senior Copywriter: CBC AUTO DIFF Reviewed date:10/30/2024 03:40:05 PM Interpretation: Performing Lab: Notes/Report: [facility] , White Blood Count 9.5 4.0-11.0 10 3/uL Red Blood Count 4.43 4.20-5.40 10 6/uL Hemoglobin 12.6 12.0-16.0 g/dL Hematocrit 37.1 36.0-48.0 % Mean Corpuscular Volume 83.7 81.0-99.0 fL Mean Corpuscular Hemoglobin 28.4 26.7-34.0 pg Mean Corpuscular HGB Conc 34.0 29.9-35.2 g/dL Red Cell Distribution Width 12.8 11.0-15.0 % Platelet Count 341 150-450 10 3/uL Mean Platelet Volume 11.0 9.5-13.5 fL Neutrophils Percent Auto 55.8 43.0-75.0 % Lymphocytes Percent Auto 38.1 20.5-60.0 % Monocytes Percent Auto 5.1 1.7-12.0 % Eosinophils Percent Auto 0.3 0.9-7.0 % Basophils Percent Auto 0.6 0.2-2.0 % Immature Granulocytes Pct Auto 0.1 0.0-0.5 % Neutrophils Absolute Auto 5.3 1.4-6.5 10 3/uL Lymphocytes Absolute Auto 3.6 1.2-3.8 10 3/uL Monocytes Absolute Auto 0.5 0.3-0.8 10 3/uL Eosinophils Absolute Auto 0.0 0.0-0.7 10 3/uL Basophils Absolute Auto 0.1 0.0-0.1 10 3/uL Immature Granulocytes Abs Auto 0.01 0.00-0.03 10 3/uL Performing Lab: see note - [facility] UA Micro, reflex to culture Reviewed date:10/30/2024 06:15:52 PM Interpretation: Performing Lab: Notes/Report: [facility] , Color Urine LT. YELLOW YELLOW Clarity Urine CLEAR CLEAR Specific [place] Urine 1.020 1.005-1.025 pH Urine 6.0 5.0-9.0 Protein Urine NEGATIVE NEG/TRACE mg/dL Glucose Urine UA NEGATIVE NEGATIVE mg/dL Bilirubin Urine NEGATIVE NEGATIVE Ketones Urine >=80 NEGATIVE mg/dL Blood Urine NEGATIVE NEGATIVE Nitrite Urine NEGATIVE NEGATIVE Urobilinogen Urine 0.2 0.2-1.0 EU/dL Leukocyte Esterase Urine NEGATIVE NEGATIVE WBC Urine 0-2 NONE SEEN #/HPF RBC Urine 0-2 0-2 #/HPF Bacteria Urine TRACE NONE SEEN #/HPF Mucus Urine TRACE NONE SEEN Squamous Epithelial Cell Urine MODERATE NONE/RARE #/LPF Crystals Seen? None Seen None Seen #/HPF Cast Seen? NONE SEEN NONE SEEN #/LPF Urine Culture Indicated NO Performing Lab: see note ML - [facility] US OB growth Reviewed date:05/10/2024 04:10:50 PM Interpretation: Performing Lab: Notes/Report: Source Facility: [place] [address] Ultrasound Report Signed Patient: LATHA STEEL MR#: [id number] : 2000 Acct:[id number] Age/Sex: 24 / F ADM Date: 05/10/24 Loc: [facility] Attending Dr: Agata Meza Ordering Physician: Agata Meza Date of Service: 05/10/24 Procedure(s): US OB growth Accession Number(s): [id number] cc: Agata Meza; Jesus Tsang M.D. [place] [address] Patient Name: LATHA STEEL MRN: [id number] date: 2000 Sex: F Assigned Patient Location: [facility] Current Patient Location: [facility] Accession/Order Number: [id number] Exam Date: 05/10/2024 13:59 Report Date: 05/10/2024 [...] Dictated By: Julisa Alvarez M.D. Signed By: 05/10/241441 DD/ 39 TD/TT: Senior Copywriter: [place] [address] Ultrasound Report Signed Patient: NERIS STEEL MR#: [id number] : 2000 Acct:[id number] Age/Sex: 24 / F ADM Date: 05/10/24 Loc: [facility] Attending Dr: Agata Meza Ordering Physician: Agata Meza Date of Service: 05/10/24 Procedure(s): US OB growth Accession Number(s): [id number] cc: Agata Meza; Jesus Tsang M.D. The [address] [address] Patient Name: LATHA STEEL MRN: [facility]:[id number] date: 2000 Sex: F Assigned Patient Location: [facility] Current Patient Loca tion: [facility] Accession/Order Numb er: [id number] Exam Date: 13:59 Report Date: 05/10/2024 14:40 At the request of: AGATA MEZA Procedure: US OB growth EXAMINATION: US OB growth HISTORY: SIZE INCONSISTENT WITH DATES COMPARISON: No relev ant comparison available. FINDINGS: Heart Rate: 132 bpm Amniotic Fluid Volum e: 12.4 cm, largest fluid pocket 4.5 cm Number: 1 Position: Ceph alic presentation, longitudinal lie BIOMETRY: BPD: 7.76 cm; 31 wee ks 1 day; 73.40 % HC: 28.38 cm; 31 wee ks 1 day; 47.60 % AC: 26.24 cm; 30 wee ks 3 days; 56.60 % FL: 5.96 cm; 30 week s 0 days; 65.60 % EFW: 1611.44 g; 63.4 0 %, 3 lbs. 9 oz. FL/AC: 22.71 FL/BPD: 76.80 HC/AC: 1.08 GESTATIONAL AGE: Age by EDC: 30 weeks 0 days DEN by EDC: 2024-07-19 Age by US: 31 weeks DEN by US: 2024-07-12 U S/ OB growth IMPRESSION: Normal interval growth Electronically authenticated by: JULISA ALVAREZ Date: 05/10/2024 14:40 Dictated By: Jamir Alvarez M.D. Signed By: 05/10/24 1442 DD/ 1440 TD/TT: Senior Copywriter: AFP, Serum, Open Spina Bifid a Reviewed date:03/16/2024 09:15:23 AM Interpretation: Performing Lab: Notes/Report: N N LMP [id number] 1 17 N 1 Y 171 N N N N N White/ [facility] , Results Report . Test Results: *Screen Negative* . Gest. Age on Collection Date 21.6 . weeks Gestat. Age Based On LMP . Recalculations are not recommended when gestational dating by LMP and ultrasound are within 10 days. [age] DEN 23.2 . yr Race . Weight 171 . lbs Insulin Dep Diabetes No . Multiple Gestation No . AFP Value 75.0 . ng/mL AFP MoM 1.19 . OSBR Risk 1 IN 6704 . Interpretation Comment . detected by this test. This test does not screen for [employer] recommends Interpretation: Screen Negative or Trisomy 18 is desired, contact Genetic Customer can identify up to 80% of open neural tube defects. Down Syndrome or Trisomy 18. If screening for Down Syndrome This result is screen negative for OSB. The AFP MoM amniocentesis be offered to women age 35 and older. Services to discuss available options. The [place] Closed neural tube defects and some open defects may not be calculated is based on the gestational age provided. MS-AFP Comment: Comment . Multiples Of Median Cutoffs by the Food and Drug Administration. IDD - Insulin Dep Diabetes Director Shop Router: Ginna Hawley [facility], Phone: [phone] This test was developed and its performance characteristics IDD 2.0 Twins 4.5 OSBR - Open Spina Bifida Risk For AFP Elevations Performed at: [facility] RT For further inquiries contact [facility] determined by [facility]. It has not been cleared or approved Abbreviation Definitions References: Available Upon Request. Blanca 2.5 Black 2.8 Josephine Ortiz, Ph.D., DABCC [address], [place] [id number] Genetics Services at [phone]. Performing Lab: see note - [facility] LB US OB anatomy Reviewed date:03/02/2024 07:09:07 PM Interpretation: Performing Lab: Notes/Report: Source Facility: [place] [address] [place] [address] Ultrasound Report Signed Patient: LATHA STEEL MR#: [id number] : 2000 Acct:[id number] Age/Sex: 23 / F ADM Date: 03/02/24 Loc: [facility] Attending Dr: Agata Meza Ordering Physician: Agata Meza Date of Service: 03/02/24 Procedure(s): US OB anatomy Accession Number(s): [id number] cc: Agata Meza; Jesus Tsang M.D. [place] [address] Patient Name: LATHA STEEL MRN: [facility]:[id number] date: 2000 Sex: F Assigned Patient Location: [facility] Current Patient Location: [facility] Accession/Order Number: [id number] Exam Date: 03/02/2024 14:41 Report Date: 03/02/2024 [...] Alvarez M.D. Signed By: 03/02/24 1606 DD/ 160 TD/TT: Senior Copywriter: [place] [address] Ultrasound Report Signed Patient: NERIS STEEL E MR#: [id number] : 2000 Acct:[id number] Age/Sex: 23 / F ADM Date: 03/02/24 Loc: [facility] Attending Dr: Agata Meza Ordering Physician: Agata Meza Date of Service: 03/02/24 Procedure(s): US OB anatomy Accession Number(s): [id number] cc: Agata Meza; Jesus Tsang M.D. [place] [id number] Patient Name: LATHA STEEL MRN: [facility]:[id number] date: 2000 Sex: F Assigned Patient Location: [facility] Current Patient Loca tion: [facility] Accession/Order Numb er: [id number] Exam Date: 03/02/2024 14:41 Report Date: 03/02/2024 16:03 At the request of: AGATA MEZA Procedure: US OB anatomy EXAMINATION: US OB anatomy, US OB cervical length HISTORY: ANATOMY COMPARISON: No relev ant comparison available. TECHNIQUE: Transabdo og sonographic examination was performed for obstetrical and evaluation. FINDINGS: Number: 1 Heart Rate: 13 8 bpm H.B. /min Amniotic Fluid Volum e: Subjectively normal Placental Location: Anterior. The placental edge is 7.0 cm from the internal cervical os Cervix Length: 4.32 cm , closed Normal anatomy: Late ral ventricles, cerebellum, posterior fossa, nose, lips, orbits, four-chamber heart, RVOT, LVOT, diaphragm, stomach, kidneys, abdominal cord insertion, blad alen, umbilical arteries, three-vessel cord, spine, extremities BIOMETRY: BPD: 4.49 cm; 19 wee ks 4 days; 26.30 % HC: 17.95 cm; 20 wee ks 3 days; 53.50 % AC: 15.31 cm; 20 wee ks 4 days; 56.80 % FL: 3.39 cm; 20 week s 5 days; 60.30 % EFW:330 g; 67 %, 13 ounces FL/AC: 22.14 FL/BPD: 75.50 HC/AC: 1.17 GESTATIONAL AGE: Age by EDC: 20 weeks 1 day Age by current US: 2 0 weeks 2 days DEN by current US: 2024-07-18 DEN by EDC: 2024-07-19 U S/US OB anatomy IMPRESSION: Normal anatomy scan Closed cervix measur ing 4.3 cm in length *Reference: AIUM Pra kaylinice Guideline for the performance of Obstetric Ultrasound Examinations, Octobe r 1, 2007. Electronically authenticated by: JULISA ALVAREZ Date: 03/02/2024 16:03 Dictated By: Jamir Alvarez M.D. Signed By: 03/02/24 1606 DD/ 160 TD/TT: Senior Copywriter: US OB cervical length Reviewed date:03/02/2024 07:09:07 PM Interpretation: Performing Lab: Notes/Report: Source Facility: [place] [address] Ultrasound Report Signed Patient: LATHA STEEL MR#: [id number] : 2000 Acct:[id number] Age/Sex: 23 / F ADM Date: 03/02/24 Loc: [facility] Attending Dr: Agata Meza Ordering Physician: Agata Meza Date of Service: 03/02/24 Procedure(s): US OB cervical length Accession Number(s): [id number] cc: Agaat Meza; Jesus Tsang M.D. [place] [address] Patient Name: LATHA STEEL MRN: [facility]:[id number] date: 2000 Sex: F Assigned Patient Location: [facility] Current Patient Location: [facility] Accession/Order Number: [id number] Exam Date: 03/02/2024 14:41 Report Date: 03/02/2024 [...] Dictated By: Julisa Alvarez M.D. Signed By: 03/02/241605 DD/ 02 TD/TT: Senior Copywriter: [place] [address] Ultrasound Report Signed Patient: NERIS STEEL MR#: [id number] : 2000 Acct:[id number] Age/Sex: 23 / F ADM Date: 03/02/24 Loc: [facility] Attending Dr: Agata Meza Ordering Physician: Agata Meza Date of Service: 03/02/24 Procedure(s): US OB cervical length Accession Number(s): [id number] cc: Agata Meza; Jesus Tsang M.D. [address] [address] Patient Name: LATHA STEEL MRN: [facility]:[id number] date: 2000 Sex: F Assigned Patient Location: [facility] Current Patient Loca tion: [facility] Accession/Order Numb er: [id number] Exam Date: 03/02/2024 14:41 Report Date: 03/02/2024 16:03 At the request of: AGATA MEZA Procedure: US OB cer vical length EXAMINATION: US OB anatomy, US OB cervical length HISTORY: ANATOMY COMPARISON: No relev ant comparison available. TECHNIQUE: Transabdo og sonographic examination was performed for obstetrical and evaluation. FINDINGS: Number: 1 Heart Rate: 13 8 bpm H.B. /min Amniotic Fluid Volum e: Subjectively normal Placental Location: Anterior. The placental edge is 7.0 cm from the internal cervical os Cervix Length: 4.32 cm , closed Normal anatomy: Late ral ventricles, cerebellum, posterior fossa, nose, lips, orbits, four-chamber heart, RVOT, LVOT, diaphragm, stomach, kidneys, abdominal cord insertion, blad alen, umbilical arteries, three-vessel cord, spine, extremities BIOMETRY: BPD: 4.49 cm; 19 wee ks 4 days; 26.30 % HC: 17.95 cm; 20 wee ks 3 days; 53.50 % AC: 15.31 cm; 20 wee ks 4 days; 56.80 % FL: 3.39 cm; 20 week s 5 days; 60.30 % EFW:330 g; 67 %, 13 ounces FL/AC: 22.14 FL/BPD: 75.50 HC/AC: 1.17 GESTATIONAL AGE: Age by EDC: 20 weeks 1 day Age by current US: 2 0 weeks 2 days DEN by current US: 2024-07-18 DEN by EDC: 2024-07-19 U S/US OB cervical length IMPRESSION: Normal anatomy scan Closed cervix measur ing 4.3 cm in length *Reference: AIUM Pra ctice Guideline for the performance of Obstetric Ultrasound Examinations, r 2006. Electronically authenticated by: JULISA ALVAREZ Date: 03/02/2024 16:03 Dictated By: Jamir Alvarez M.D. Signed By: 03/02/24 1606 DD/ 160 TD/TT: Senior Copywriter: CT cervical spine wo con Reviewed date:09/03/2024 02:00:54 PM Interpretation: Performing Lab: Notes/Report: Source Facility: [place] [address] CT Scan Report Signed Patient: LATHA STEEL MR#: [id number] : 2000 Acct:[id number] Age/Sex: 24 / F ADM Date: 09/02/24 Loc: CT Attending Dr: Jesus Tsang M.D. Ordering Physician: Jesus Tsang M.D. Date of Service: 09/02/24 Procedure(s): CT cervical spine wo con Accession Number(s): [id number] cc: Jesus Tsang M.D. [place] [address] Patient Name: LATHA STEEL MRN: [id number] date: 2000 Sex: F Assigned Patient Location: CT Current Patient Location: CT Accession/Order Number: [id number] Exam Date: 09/02/2024 08:43 Report Date: 09/02/2024 18:16 At the request of: JESUS TSANG Procedure: CT cervical spine wo con EXAMINATION: [...] M.D. Signed By: 09/02/241818 DD/ 15 TD/TT: Senior Copywriter: [place] [address] CT Scan Report Signed Patient: NERIS STEEL MR#: [id number] : 2000 Acct:[id number] Age/Sex: 24 / F ADM Date: 09/02/24 Loc: CT Attending Dr: Max Tsang M.D. Ordering Physician: Jesus Tsang M.D. Date of Service: 09/02/24 Procedure(s): CT cer vical spine wo con Accession Number(s): [id number] cc: Jesus Tsang M.D. [place] [address] Patient Name: LATHA STEEL MRN: [facility]:[id number] date: 2000 Sex: F Assigned Patient Location: CT Current Patient Loca tion: CT Accession/Order Numb er: [id number] Exam Date: 09/02/2024 08:43 Report Date: 09/02/2024 18:16 At the request of: JESUS TSANG Procedure: CT cervic al spine wo con EXAMINATION: CT cerv ical spine wo con HISTORY: Cervical Radiculopathy COMPARISON: No relev ant comparison available. TECHNIQUE: Axial, Coronal, and Sagittal images were created without IV contrast. Dose reduc tion techniques were achieved by using automated exposure control and/or adjus tment of mA and/or kV according to patient size and/or use of iterative reconstruction technique. FINDINGS: VERTEBRAL BODIES: No fracture, pars defect, or osseous lesion. FACET JOINTS: No disruption or abnormal widening. DISCS: No significan t disc/facet abnormality, spinal stenosis, or foraminal stenosis. CENTRAL CANAL: No evidence of hemorrhage. PARASPINAL AREA: No visible mass. C T/CT cervical spine wo con IMPRESSION: 1. No abnormal or suspicious findings to account for patient's symptoms. Electronically authenticated by: RONNIE COELHO Date: 09/02/2024 18:16 Dictated By: Ronnie Coelho M.D. Signed By: 09/02/241818 DD/ 15 TD/TT: Senior Copywriter: Type and Screen Reviewed date:07/12/2024 10:03:03 AM Interpretation: Performing Lab: Notes/Report: [facility] , Blood Type O Positive Antibody Screen NEGATIVE CBC no Diff (Hemogram) Reviewed date:07/11/2024 09:27:08 PM Interpretation: Performing Lab: Notes/Report: [facility] , White Blood Count 13.1 4.0-11.0 10 3/uL Red Blood Count 3.77 4.20-5.40 10 6/uL Hemoglobin 10.6 12.0-16.0 g/dL Hematocrit 32.0 36.0-48.0 % Mean Corpuscular Volume 84.9 81.0-99.0 fL Mean Corpuscular Hemoglobin 28.1 26.7-34.0 pg Mean Corpuscular HGB Conc 33.1 29.9-35.2 g/dL Red Cell Distribution Width 13.3 11.0-15.0 % Platelet Count 296 150-450 10 3/uL Mean Platelet Volume 12.0 9.5-13.5 fL Performing Lab: see note ML - [facility] LB DRUG SCREEN RAPID (URINE) Reviewed date:07/11/2024 09:27:27 PM Interpretation: Performing Lab: Notes/Report: [facility] , Cannabinoid Screen Urine NEGATIVE NEGATIVE Phencyclidine Screen Urine NEGATIVE NEGATIVE Cocaine Screen Urine NEGATIVE NEGATIVE Methamphetamines Screen Urine NEGATIVE NEGATIVE Opiate Screen Urine NEGATIVE NEGATIVE Amphetamine Screen Urine NEGATIVE NEGATIVE Benzodiazepines Screen Urine NEGATIVE NEGATIVE Tricyclic Antidepressant Urine NEGATIVE NEGATIVE Methadone Screen Urine NEGATIVE NEGATIVE Barbiturates Screen Urine NEGATIVE NEGATIVE Oxycodone Screen Urine NEGATIVE NEGATIVE Buprenorphine Screen Urine NEGATIVE NEGATIVE BAR (Barbiturates): 200 ng/mL OPI (Opiates): 100 ng/mL MTD (Methadone): 200 ng/mL AMP (Amphetamine): 500 ng/mL NAA (Cocaine): 150 ng/mL FOLLOWS: DRUG CLASS TEST SYSTEM CUT-OFF CONCENTRATIONS ARE TCA (Trycyclic Antidepressants): 300 ng/mL THC (Cannabinoids): 50 ng/mL mAMP (Methamphetamine): 500 ng/mL PCP (Phencyclidine): 25 ng/mL OXY (Oxycodone): 100 ng/mL BZO (Benzodiazepines): 150 ng/mL BUP (Buprenorphine): 10 ng/mL Performing Lab: see note ML - [facility] LB Strep Gp B LALITO Reviewed date:06/26/2024 06:09:25 PM Interpretation: Performing Lab: Notes/Report: [facility] , Strep Gp B LALITO See Below For Report Strep Gp B LALITO Strep Gp B LALITO Negative Strep Gp B LALITO Strep Gp B LALITO Centers for Disease Control and Prevention (CDC) and Strep Gp B LALITO Strep Gp B LALITO [place] [employer] Strep Gp B LALITO Strep Gp B LALITO (ACOG) guidelines fo r prevention of group B Strep Gp B LALITO Strep Gp B LALITO streptococcal (GBS) disease specify co-collection of Strep Gp B LALITO Strep Gp B LALITO a vaginal and rectal swab specimen to maximize Strep Gp B LALITO Strep Gp B LALITO sensitivity of GBS detection. Per the CDC and ACOG, Strep Gp B LALITO Strep Gp B LALITO swabbing both the lo wer vagina and rectum Strep Gp B LALITO Strep Gp B LALITO substantially increa ses the yield of detection Strep Gp B LALITO Strep Gp B LALITO compared with sampli ng the vagina alone. Strep Gp B LALITO Strep Gp B LALITO Penicillin G, ampici llin, or cefazolin are indicated Strep Gp B LALITO Strep Gp B LALITO for intrapartum prophylaxis of GBS Strep Gp B LALITO Strep Gp B LALITO colonization. Reflex susceptibility testing should be Strep Gp B LALITO Strep Gp B LALITO performed prior to u se of clindamycin only on GBS Strep Gp B LALITO Strep Gp B LALITO isolates from penicillin-allergic women who are Strep Gp B LALITO Strep Gp B LALITO considered a high ri sk for anaphylaxis. Treatment with Strep Gp B LALITO Strep Gp B LALITO vancomycin without additional testing is warranted if Strep Gp B LALITO Strep Gp B LALITO resistance to clinda mycin is noted. Strep Gp B LALITO Strep Gp B LALITO Performed at: 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 producer legend - [facility] LB ECG 12 lead Reviewed date:10/31/2024 08:27:43 PM Interpretation: Performing Lab: Notes/Report: Source Facility: [address] [address] [place] [address] Electrocardiograph Report Signed Patient: LATHA STEEL MR#: [id number] : 2000 Acct:[id number] Age/Sex: 24 / F ADM Date: 10/30/24 Loc: ER Attending Dr: Ordering Physician: Memo Lynch Date of Service: 10/30/24 Procedure(s): ECG 12 lead Accession Number(s): [id number] cc: [facility] Test Date: 2024-10-30 Pat Name: LATHA STEEL Department: Room: - Gender: Female Cellulose Insulation Helper: : 2000 Requested By: [id number] Order Number: [id number] Reading MD: ANNA LI M.D. Measurements Intervals [place] Rate: 77 P: 33 [place]: 164 QRS: 18 QRSD: 104 T: 41 QT: 382 QTc: 413 Interpretive Statements 1100 Sinus rhythm 2440 Incomplete right bundle branch block 9130 borderline ECG Compared to ECG 10/20/2023 12:22:15 No significant changes Electronically Signed On 10-31-2024 7:36:14 EDT by ANNA LI M.D. Dictated By: ANNA LI Signed By: 10/31/24 0736 DD/ 1507 TD/TT: Senior Copywriter: [place] [address] Electrocardiograph Report Signed Patient: NERIS STEEL MR#: [id number] : 2000 Acct:[id number] Age/Sex: 24 / F ADM Date: 10/30/24 Loc: ER Attending Dr: Ordering Physician: Memo Lynch Date of Service: 10/30/24 Procedure(s): ECG 12 lead Accession Number(s): [id number] cc: [facility] Test Date: 2024-10-30 Pat Name: LATHA SAENZ Department: 64 Room: - Gender: Female Cellulose Insulation Helper: : 2000 Requ ested By: [id number] Order Number: [id number] Reading MD: ANNA LI M.D. Measurements Intervals [place] Rate: 77 P: 33 [place]: 164 QRS: 18 QRSD: 104 T: 41 QT: 382 QTc: 413 Interpretive Statements 1100 Sinus rhythm 2440 Incomplete righ t bundle branch block 9130 borderline ECG Compared to ECG 10/20/2023 12:22:15 No significant changes Electronically Sherrell d On 10-31-2024 7:36:14 EDT by ANNA LI M.D. Dictated By: ANNA LI Signed By: 10/31/24 0736 DD/ 1507 TD/TT: Senior Copywriter: SARS-CoV-2 Ag* Reviewed date:08/01/2024 07:51:30 AM Interpretation: Performing Lab: Notes/Report: [facility] , SARS-CoV-2 Ag NEGATIVE NEGATIVE terminated or authorization is revoked sooner. authorized for the duration of the declaration that circumstances exist justifying the authorization of CLIA that meet the requirements to perform moderate or high complexity testing. This test has been authorized only for emergency use of in vitro diagnostic tests for detection This test has not been FDA cleared or approved, but has been and/or diagnosis of Covid-19 under section 564(b)(1) of the (EUA) for use by authorized laboratories certified under viruses or pathogens. The emergency use of this test is Act, 21 U.S.C. 360bbb-3(b)(1), unless the declaration is the detection of proteins from SARS-CoV-2, not for any other authorized by the FDA under an Emergency Use Authorization Performing Lab: see note - [facility] LB Prothrombin Time INR Reviewed date:08/01/2024 07:51:30 AM Interpretation: Performing Lab: Notes/Report: [facility] , Prothrombin Time 10.6 9.0-11.6 sec INR 1.00 2.5-3.5 RECURRENT THROMBOSIS DESIRED INR: 2.0-3.0 CONDITIONS NOT LISTED BELOW 2.5-3.5 FOR PROSTHETIC HEART VALVE REPLACEMENT Performing Lab: see note - [facility] LB UA RANDOM W or MICROSCOPIC Reviewed date:08/01/2024 07:51:30 AM Interpretation: Performing Lab: Notes/Report: [facility] , Color Urine LT. YELLOW YELLOW Clarity Urine CLEAR CLEAR Specific [place] Urine 1.025 1.005-1.025 pH Urine 6.0 5.0-9.0 Protein Urine NEGATIVE NEG/TRACE mg/dL Glucose Urine UA NEGATIVE NEGATIVE mg/dL Bilirubin Urine NEGATIVE NEGATIVE Ketones Urine NEGATIVE NEGATIVE mg/dL Blood Urine NEGATIVE NEGATIVE Nitrite Urine NEGATIVE NEGATIVE Urobilinogen Urine 0.2 0.2-1.0 EU/dL Leukocyte Esterase Urine TRACE NEGATIVE WBC Urine 2-5 NONE SEEN #/HPF RBC Urine 0-2 0-2 #/HPF Bacteria Urine NONE SEEN NONE SEEN #/HPF Mucus Urine NONE SEEN NONE SEEN Squamous Epithelial Cell Urine FEW NONE/RARE #/LPF Crystals Seen? None Seen None Seen #/HPF Cast Seen? NONE SEEN NONE SEEN #/LPF Urine Culture Indicated NO Performing Lab: see note ML - [facility] LB PTT Reviewed date:08/01/2024 07:51:30 AM Interpretation: Performing Lab: Notes/Report: [facility] , Partial Thromboplastin Time 30.1 22.3-36.2 sec Performing Lab: see note ML - [facility] LB PROF 14(COMP METB) Reviewed date:08/01/2024 07:51:30 AM Interpretation: Performing Lab: Notes/Report: [facility] , Sodium 141 136-145 mmol/L Potassium 3.7 3.5-5.1 mmol/L Chloride 105 98-107 mmol/L Carbon Dioxide 26.5 21.0-32.0 mmol/L Anion Gap 13.2 Glucose 88 74-106 mg/dL Blood Urea Nitrogen 23.0 7.0-18.0 mg/dL Creatinine 1.38 0.55-1.02 mg/dL Estimated GFR ( Akua 57 >=60 mL/min/1.73m 2 Estimated GFR (Non- Deborah 47 >=60 mL/min/1.73m 2 BUN Creatinine Ratio 16.7 Calcium 8.8 8.5-10.1 mg/dL Bilirubin Total 0.3 0.2-1.0 mg/dL Aspartate Amino Transferase 12 15-37 U/L Alanine Aminotransferase 14 14-59 U/L Alkaline Phosphatase 128 46-116 U/L Total Protein 7.4 6.4-8.2 g/dL Albumin Level 3.5 3.4-5.0 g/dL Globulin 3.9 Albumin Globulin Ratio 0.9 Performing Lab: see note ML - [facility] LB INFLUENZA A AND B AG Reviewed date:08/01/2024 07:51:30 AM Interpretation: Performing Lab: Notes/Report: [facility] , Influenza Virus A Antigen Negative below the detection limit of the test. Negative for Flu A protein antigen. Infection due to Flu A cannot be ruled out. Flu A antigen in the sample may be Influenza Virus B Antigen Negative below the detection limit of the test. Negative for Flu B protein antigen. Infection due to Flu B cannot be ruled out. Flu B antigen in the sample may be Performing Lab: see note ML - [facility] LB CBC AUTO DIFF Reviewed date:08/01/2024 07:51:30 AM Interpretation: Performing Lab: Notes/Report: [facility] , White Blood Count 9.4 4.0-11.0 10 3/uL Red Blood Count 4.29 4.20-5.40 10 6/uL Hemoglobin 12.1 12.0-16.0 g/dL Hematocrit 36.6 36.0-48.0 % Mean Corpuscular Volume 85.3 81.0-99.0 fL Mean Corpuscular Hemoglobin 28.2 26.7-34.0 pg Mean Corpuscular HGB Conc 33.1 29.9-35.2 g/dL Red Cell Distribution Width 12.8 11.0-15.0 % Platelet Count 400 150-450 10 3/uL Mean Platelet Volume 10.6 9.5-13.5 fL Neutrophils Percent Auto 51.1 43.0-75.0 % Lymphocytes Percent Auto 41.4 20.5-60.0 % Monocytes Percent Auto 5.1 1.7-12.0 % Eosinophils Percent Auto 1.1 0.9-7.0 % Basophils Percent Auto 1.1 0.2-2.0 % Immature Granulocytes Pct Auto 0.2 0.0-0.5 % Neutrophils Absolute Auto 4.8 1.4-6.5 10 3/uL Lymphocytes Absolute Auto 3.9 1.2-3.8 10 3/uL Monocytes Absolute Auto 0.5 0.3-0.8 10 3/uL Eosinophils Absolute Auto 0.1 0.0-0.7 10 3/uL Basophils Absolute Auto 0.1 0.0-0.1 10 3/uL Immature Granulocytes Abs Auto 0.02 0.00-0.03 10 3/uL Performing Lab: see note ML - [facility] LB HCG Qualitative* Reviewed date:10/30/2024 04:13:26 PM Interpretation: Performing Lab: Notes/Report: [facility] , HCG Qualitative NEGATIVE NEGATIVE Performing Lab: see note - [facility] LB PROF 14(COMP METB) Reviewed date:10/30/2024 04:13:26 PM Interpretation: Performing Lab: Notes/Report: [facility] , Sodium 139 136-145 mmol/L Potassium 3.2 3.5-5.1 mmol/L Chloride 103 98-107 mmol/L Carbon Dioxide 24.0 21.0-32.0 mmol/L Anion Gap 15.2 Glucose 90 74-106 mg/dL Blood Urea Nitrogen 16.0 7.0-18.0 mg/dL Creatinine 0.84 0.55-1.02 mg/dL Estimated GFR ( Akua >60 >=60 mL/min/1.73m 2 Estimated GFR (Non- Deborah >60 >=60 mL/min/1.73m 2 BUN Creatinine Ratio 19.0 Calcium 9.6 8.5-10.1 mg/dL Bilirubin Total 0.4 0.2-1.0 mg/dL Aspartate Amino Transferase 15 15-37 U/L Alanine Aminotransferase 20 14-59 U/L Alkaline Phosphatase 80 46-116 U/L Total Protein 7.8 6.4-8.2 g/dL Albumin Level 4.5 3.4-5.0 g/dL Globulin 3.3 Albumin Globulin Ratio 1.4 Performing Lab: see note ML - [facility] LB LIPASE Reviewed date:10/30/2024 04:13:26 PM Interpretation: Performing Lab: Notes/Report: [facility] , Lipase 29.0 16.0-77.0 U/L Performing Lab: see note ML - [facility] LB Reason For Referral Diagnosis 1 Hives (L50.9) Referral Organization [facility] Referring Provider First Name Kentrell Referring Provider Last Name Sharan Referring Provider Speciality Family [facility] kristy Referred Provider Ruy Pimentel Referred Provider Specialty Allergy/Immu nology Referral Priority Routine Medications Medication SIG (Take, Route, Frequency, Duration) [...] Question Answer Notes Patient is a nonsmoker Alcohol Screen (Audit-C) Question Answer Notes Did you have a drink contain ing alcohol in the past year? Yes How often did you have 6 or more drinks on one occasion in the past year? Never (0 point) How many drinks did you have on a typical day when you were drinking in the past year? 1 or 2 drinks (0 point) How often did you have a dri nk containing alcohol in the past year? Monthly (2 points) Points 2 Interpretation Negative Tobacco Control (Standard) Question Answer Notes Tobacco use: Nonsmoker AUDIT-C (Standard) Question Answer Notes Did you have a drink containing alcohol in the p ast year? No Points 0 Interpretation Negative Problems Problem Type SNOMED Code ICD Code Onset Dates Problem Status W/U Status Risk Notes Problem Acute gastritis (77300492) Acute gastritis without bleeding (K29.00) Active confirmed Problem Inflammatory dermatosis (315920191) Other specified dermatitis (L30.8) Active confirmed Problem Acne vulgaris (83919510) Acne vulgaris (L70.0) Active confirmed Problem Acne (11820869) Acne, unspecifie d (L70.9) Active confirmed Problem Sebaceous cyst (607231171) Sebaceous cyst (L72.3) Active confirmed Problem Chondromalacia of patella (68039553) Chondromalacia patellae, 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 confirmed Problem Lumbar radiculopathy (235681667) Radiculopathy, lumbar region (M54.16) Active confirmed Problem Epistaxis (825998047) Epistaxis (R04.0) Active confirmed Problem Headache (58003178) Headache (R51) Active confirmed Problem Chest pain (79407957) Chest pain (R07.9) Active confirmed Problem Fatigue (34458300) Fatigue (R53.83) Active confirmed Problem Cervical radiculopathy (06436700) Cervical radiculopathy (M54.12) Active confirmed Problem Hypothyroid (51695850) Hypothyroid (E03.9) Active confirmed Problem Eczema (20776428) Eczema (L30.9) Active confirm ed Problem Syncope (085885150) Syncope (R55) Active confirmed Problem Acute sinusitis (15818313) Acute sinusitis (J01.90) Active confirmed Problem Allergic rhinitis (05560373) Allergic rhinitis (J30.9) Active confirmed Problem Radial styloid tenosynovitis (06232484) De Quervain's tenosynovitis (M65.4) Active confirmed Problem Pain in thoracic spine (723510003) Bilateral thoracic back pain (M54.6) Active confirmed Problem Syncope and collapse (866436096) Syncopal episodes (R55) Active confirmed Problem Nosebleed (069993954) Nosebleed (R04.0) Active confirmed Problem Acute infective polyneuritis (785410095) 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) Active confirmed Problem Derangement of knee (43043067) Internal derangement of knee, right (M23.91) Active confirmed Problem Bloody diarrhea (70760319) Bloody diarrhea (R19.7) Active confirmed Problem Hyperplasia of tonsils (42631320) Hyperplasia of tonsils (J35.1) Active confirmed Problem Meralgia paresthetica (28067692) Meralgia paresthetica, bilateral lower limbs (G57.13) Active confirmed Problem Cyst of meniscus of right knee (316142599354146) Cyst of meniscus of right knee (M23.006) Active confirmed Problem Postural orthostatic tachycardia syndrome (disorder) (259510357) POTS (postural orthostatic tachycardia syndrome) (I49.8) Active confirmed Problem Disease caused by Severe acute respiratory syndrome coronavirus 2 (disorder) (601205650) COVID-19 virus infection (U07.1) Active confirmed Vital Signs Heart Rate 96 /min 04/20/2024 Temperature 97.4 degrees Fahrenheit 04/20/2024 Oximetry 99 % 04/20/2024 Blood pressure diastolic 72 mm Hg 12/16/2024 Height 64 in 12/16/2024 Blood pressure systolic 116 mm Hg 12/16/2024 Weight 161 lbs 12/16/2024 BMI 27.63 kg/m2 12/16/2024 Encounters Encounter Location Date Provider Diagnosis [facility] [address] [place] [address] 01/28/2024 Kentrell Hoy POTS (postural ortho static tachycardia syndrome) I49.8 [facility] [address] [place] [address] 04/20/2024 Kentrell Hoy Acute non-recurrent sinusitis, unspecified location J01.90 and Nasal congestion R09.81 [facility] [address] [place] [address] 08/19/2024 Kentrell Hoy Headache R51 and Cer vical radiculopathy M54.12 [facility] [address] [place] [address] 12/16/2024 Kentrell Hoy Gastroenteritis K52. 9 and Hives L50.9 [facility] [address] [place] [address] 03/03/2024 Kentrell Wilcoxy [facility] [address] [place] [address] 08/01/2024 Kentrell Hoy [facility] [address] [place] [address] 09/03/2024 Kentrell Wilcoxy Assessments Encounter Date Diagnosis (ICD Code) Assessment Notes Treatment Notes Treatment Clinical Notes Section Notes 01/28/2024 POTS (postural orthostatic tachycardia syndrome) (ICD-10 - I49.8) unalbe to take merds - pushing fluids an salt 04/20/2024 Acute non-recurrent sinusitis, unspecified location (ICD-10 - J01.90) Rest and drink more liquids, especially water. You may use a humidifier or vaporizer to help keep the drainage moist. Qrxt-qey-hgywheo Nasal Saline may help the stuffy and runny nose. Use Ibuprofen and or Tylenol as needed for fever, chills, body aches or pain. Children 5 years old should not be given oaje-azj-pflhlvt cough and cold medications such as guaifenesin and dextromethorphan. If you're over age 5, you may try zngk-oec-yuwjcvx cold medications such as guaifenesin and dextromethorphan, or multi-symptom cold reliever such as Dayquil to help reduce the symptoms. Antibiotics have been prescribed. You should take these until completed and follow the directions. Antibiotics can sometimes cause upset stomach, and in rare cases, serious allergic reactions or serious gastrointestinal problems. If you start having severe abdominal pain, severe vomiting, or bloody diarrhea, you should be reevaluated by your physician or urgent care immediately. Follow up with your Primary Care Provider or return to clinic if symptoms do not improve within 3-5 days 08/19/2024 Headache (ICD-10 - R51) 08/19/2024 Cervical radiculopathy (ICD-10 - M54.12) 12/16/2024 Hives (ICD-10 - L50.9) 12/16/2024 Gastroenteritis (ICD-10 - K52.9) Get plenty of rest. Stay hydrated by sucking on ice chips or taking small sips of water. You can also try drinking clear soda, clear broths or noncaffeinated sports drinks. Stop eating solid foods for a few hours to let your stomach settle. East back into eating by eating bland, zxth-nx-epcoqr foods like crackers, toast, gelatin, bananas, rice and chicken. Try to avoid foods/substances including dairy products, caffeine, alcohol, nicotine and fatty or highly seasoned foods. Medications such as ibuprofen or tylenol can make your stomach more upset, so use sparingly if at all. Also avoid hahv-wwq-rhusibz anti-diarrheal medications because it can make it harder for your body to eliminate the virus. 04/20/2024 Nasal congestion (ICD-10 - R09.81) Plan Of Treatment Pending Test Test Name Order Date CMP (COMPLETE METABOLIC PANEL) 4 HEMOGLOBIN A1C (GLYCO) 09/03/2023 IRON, TOTAL 09/03/2023 CBC WITH DIFF 09/03/2023 VITAMIN D, 25 LEVEL (TOTAL) 09/03/2023 MRI Brain w/wo contrast * 10/21/2023 EEG Awake and Asleep 10/21/2023 CT Brain w/o Contrast 08/19/2024 THYROID PROFILE WITH TSH 12/05/2022 THYROID PANEL (T4/TSH/FREE T3) 4 ECHOCARDIO M/2D COMPLETE 02/16/2023 ECHOCARDIO M/2D COMPLETE 09/03/2023 ECHOCARDIO M/2D COMPLETE 12/05/2022 Insurance Providers Payer Name Payer Address Payer Phone Subscriber Number Group Number Insured Name Patient Relationship to Insured Coverage Start Date Coverage End Date [employer] [address] [place] [address] [id number] Job Keith Child 3 [employer] [place] [employer] [address] [address] [place], [place] [phone] [id number] Latha Steel Self - patient is the insured 4 Medical (General) History Medical History History ICD Code Acne, unspecified L70.9 Radiculopathy, lumbar region M54.16 Other specified dermatitis L30.8 Chondromalacia patellae, right knee M22. 41 GBS (Guillain Birmingham syndrome) G61.0 Chest pain R07.9 Sebaceous cyst L72.3 Acne vulgaris L70.0 Bloody diarrhea R19.7 De Quervain's tenosynovitis M65.4 Fatigue R53.83 Acute sinusitis J01.90 Acute gastritis without bleeding K29.00 Bilateral thoracic back pain M54.6 Eczema L30.9 COVID-19 virus infection U07.1 Meralgia paresthetica, bilateral lower l imbs G57.13 Cyst of meniscus of right knee M23.006 Internal derangement of knee, right M23. 91 Hyperplasia of tonsils J35.1 Allergic rhinitis J30.9 Surgical History Surgery Date(Month/Year) Breast Reduction Exp Lap
--- OUTSIDE RECORDS SUMMARY | 2024-12-27 18:08 | XMS_ITS | Encounter Summary ---
Author Organization [facility] Address [address] [place] [address] Care Team Providers Care Supervisor Malted Milk Name Role Phone Fady Tsang MD Primary Care Provider [phone] Encounter Details Date Type Department Care Team (Late Contact Info) Description 12/18/2023 Clinisync Result Encounter [facility] External Department Unsolicited Roosevelt Martínez, DO [address] [place] [address] [place] [address] Social History Tobacco Use Types Packs/Day Years [...] Office Visit [facility] ALL [address] [facility] [address] [place] [phone] Ruy Pimentel MD [address] [facility] [address] [place] [address] documented as of this encounter Procedures Procedure Name Priority Date/Time Associated Diagnosis Comments HBSAG SCREEN Routine 12/18/2023 12:04 PM EDT RAPID PLASMA REAGIN, QUANT Routine 12/18/2023 12:04 PM EDT HIV AB/P24 AG WITH REFLEX Routine 12/18/2023 12:04 PM EDT HCV ANTIBODY RFX TO QUANT PCR Routine 12/18/2023 12:04 PM EDT MLR HEMOGLOBIN A1C Routine 12/18/2023 12 :04 PM EDT ALL TYPE AND SCREEN Routine 12/18/2023 1 2:04 PM EDT ALL RUBELLA IGG AB Routine 12/18/2023 12 :04 PM EDT ALL CBC WITH AUTO DIFF Routine 12/18/2023 12:04 PM EDT US OB TRANSVAGINAL 12/18/2023 9: 11 AM EDT documented in this encounter Results * HBSAG SCREEN (12/18/2023 12:04 PM EDT) HBSAG SCREEN Negative Negative [facility] Comment: Performed at: - [facility] [id number] It Programmer Analyst: Samson Ibarra PhD, Phone: [phone] 12/18/2023 12:0 4 PM EDT 12/18/2023 12:10 PM EDT Narrative THAIS - 12/19/2023 12:11 PM EDT us Roosevelt Martínez DO LAB BLOOD ORDERABLES Final Resul t [facility] * RAPID PLASMA REAGIN, QUANT (12/18/2023 12:04 PM EDT) RAPID PLASMA REAGIN, QUANT Non Reactive NonRea<1: 1 titer [facility] Comment: Please Note: This test does not meet current guidelines for screening and diagnosis of syphilis. This test is intended for following treatment response in patients being treated for syphilis infection. To screen for syphilis infection, a reflex cascade that includes both RPR and a treponema-specific assay should be utilized, such as Treponema pallidum (Syphilis) Screening Worth (924856) or Rapid Plasma Reagin (RPR) Test With Reflex to Quantitative RPR and Confirmatory Treponema pallidum Antibodies (073362). Performed at: [address] [id number] It Programmer Analyst: Samson Ibarra PhD, Phone: [phone] 12/18/2023 12:0 4 PM EDT 12/18/2023 12:10 PM EDT Narrative CLINISYNC - 12/19/2023 12:11 PM EDT Roosevelt Mauricio LAB BLOOD ORDERABLES Final Resul t Performing Organization Address City/[facility] Co de Phone Number [facility] * HCV ANTIBODY RFX TO QUANT PCR (12/18/2023 12:04 PM EDT) HCV AB Non Reactive Non Reactive [facility] INTERPRETATION: Comment . [facility] Comment: Not infected with HCV unless early or acute infection is suspected (which may be delayed in an immunocompromised individual), or other evidence exists to indicate HCV infection. 12/18/2023 12:0 4 PM EDT 12/18/2023 12:10 PM EDT Narrative CLINISYNC - 12/19/2023 8:12 AM EDT [facility] BLOOD ORDERABLES Final Resul t Performing Organization Address City/[facility] Co de Phone Number [facility] * HIV AB/P24 AG WITH REFLEX (12/18/2023 12:04 PM EDT) Pathologist [facility] HIV AB/P24 AG SCREEN Non Reactive Non Reactive [facility] Comment: HIV Negative HIV-1/HIV-2 antibodies and HIV-1 p24 antigen were NOT detected. There is no laboratory evidence of HIV infection. Performed at: [address] [id number] It Programmer Analyst: Samson Ibarra PhD, Phone: [phone] 12/18/2023 12:0 4 PM EDT 12/18/2023 12:10 PM EDT Narrative CLINISYNC - 12/19/2023 8:12 AM EDT Roosevelt Mauricio DO LAB BLOOD ORDERABLES Final Resul t Performing Organization Address [facility] Co de Phone Number [facility] * ALL RUBELLA IGG AB (12/18/2023 12:04 PM EDT) Pathologist [facility] RUBELLA ANTIBODIES, IGG 5.47 Immune >0.99 index TB Comment: Non-immune <0.90 Equivocal 0.90 - 0.99 Immune >0.99 Performed at: [facility] [id number] It Programmer Analyst: Samson Ibarra PhD, Phone: [phone] 12/18/2023 12:0 4 PM EDT 12/18/2023 12:10 PM EDT Narrative CLINISYNC - 12/19/2023 8:12 AM EDT Roosevelt Mauricio DO CLINISYNC Final Result Performing Organization Address [facility] Co de Phone Number [facility] * ALL TYPE AND SCREEN (12/18/2023 12:04 PM EDT) [facility] BLOOD TYPE O Positive [facility]H ANTIBODY SCREEN NEGATIVE TB 12/18/2023 12:0 4 PM EDT 12/18/2023 12:10 PM EDT [facility] CLINISYDC - 12/18/2023 1:04 PM EDT [facility] , Roosevelt Mauricio DO CLINISYNC Final Result Performing Organization Address [facility] Co de Phone Number [facility] * MLR HEMOGLOBIN A1C (12/18/2023 12:04 PM EDT) [facility] GLYCOHEMOGLOBIN A1C 4.9 4.5 - 6.2 % [facility] Comment: ADA RECOMMENDED LIMIT 4.0 - 6.0 ADA THERAPEUTIC TARGET < 7.0 ACTION SUGGESTED > 7.0 ESTIMATED AVERAGE GLUCOSE 94 mg/dL [facility] 12/18/2023 12:0 4 PM EDT 12/18/2023 12:10 PM EDT Narrative CLINISYNC - 12/18/2023 12:32 PM EDT Roosevelt Martínez DO CLINISYNC Final Result [facility] TB * (ABNORMAL) ALL CBC WITH AUTO DIFF (12/18/2023 12:04 PM EDT) [facility] WBC 11.7(H) 4.0 - 11.0 10 3/uL TBH TBH RBC 4.23 4.20 - 5.40 10 6/uL TBH TBH HGB 12.6 12.0 - 16.0 g/dL TBH TBH HCT 36.8 36.0 - 48.0 % TBH TBH MCV 87.0 81.0 - 99.0 fL TBH TBH MCH 29.8 26.7 - 34.0 pg TBH TBH MCHC 34.2 29.9 - 35.2 g/dL TBH TBH RDW 12.1 11.0 - 15.0 % TBH TBH PLT 296 150 - 450 10 3/uL TBH TBH MPV 10.9 9.5 - 13.5 fL TBH NEUTROPHILS PERCENT AUTO 72.9 43.0 - 75.0 % TBH LYMPHOCYTES PERCENT AUTO 22.2 20.5 - 60.0 % TBH MONOCYTES PERCENT AUTO 4.0 1.7 - 12.0 % TBH TBH EO % 0.1(L) 0.9 - 7.0 % TBH BASOPHILS PERCENT AUTO 0.5 0.2 - 2.0 % TBH IMMATURE GRANULOCYTES PCT AUTO 0.3 0.0 - 0.5 % TBH NEUTROPHILS ABSOLUTE AUTO 8.6(H) 1.4 - 6.5 10 3/uL TBH LYMPHOCYTES ABSOLUTE AUTO 2.6 1.2 - 3.8 10 3/uL TBH MONOCYTES ABSOLUTE AUTO 0.5 0.3 - 0.8 10 3/uL TBH TBH EO # 0.0 0.0 - 0.7 10 3/uL TBH BASOPHILS ABSOLUTE AUTO 0.1 0.0 - 0.1 10 3/uL TBH IMMATURE GRANULOCYTES ABS AUTO 0.03 0.00 - 0.03 10 3/uL TB 12/18/2023 12:0 4 PM EDT 12/18/2023 12:10 PM EDT Narrative THAIS - 12/18/2023 12:26 PM EDT us Roosevelt Martínez DO CLINISYNC Final Result [facility] * US OB TRANSVAGINAL (12/18/2023 9:11 AM EDT) Anatomical Region Laterality Modality Other 12/18/2023 9:11 AM EDT Narrative 12/18/2023 9:13 [place] [address] Ultrasound Report Signed Patient: LATHA STEEL MR#: [id number] : 2000 Acct:[id number] Age/Sex: 23 / F ADM Date: 12/18/23 Loc: [facility] Attending Dr: Roosevelt Martínez D.O. Ordering Physician: Roosevelt Martínez D.O. Date of Service: 12/18/23 Procedure(s): US OB transvaginal Accession Number(s): [id number] cc: Roosevelt Martínez D.O.; Fady Tsang M.D. [address] [address] Patient Name: LATHA STEEL MRN: [facility]:[id number] date: 2000 Sex: F Assigned Patient Location: [facility] Current Patient Location: [facility] Accession/Order Number: [id number] Exam Date: 12/18/2023 08:33 Report Date: 12/18/2023 09:11 At the request of: ROOSEVELT MARTÍNEZ Procedure: US OB transvaginal EXAMINATION: US OB transvaginal HISTORY: MISSED MENSES COMPARISON: No relevant comparison available. FINDINGS: GESTATIONAL SAC: Present and normal appearing. YOLK SAC: Absent POLE: Present and normal appearing. CARDIAC: Present. UTERUS: Normal size and appearance. OVARIES: Right: Normal. Left: Normal. CERVIX: 3.7 cm in length and closed. CUL-DE-SAC: Normal. OTHER: None. AGE BY LMP: 9 weeks 3 days DEN BY LMP: 07/19/2024 AGE BY US CRL: 10 weeks 0 days DEN BY US CRL: 07/15/2024 US/US OB transvaginal IMPRESSION: 1. Single live intrauterine . Electronically authenticated by: RONNIE COELHO Date: 12/18/2023 09:11 Dictated By: Ronnie Coelho M.D. Signed By: 12/18/23912 DD/ 0 TD/TT: Sack Lifter: Procedure Note Radiology, Radiologist, MD - 12/18/2023 [place] [address] Ultrasound Report Signed Patient: LATHA STEEL EMR#: [id number] : 2000Acct:[id number] Age/Sex: 23 / FADM Date: 12/18/23 Loc: [facility] Attending Dr: Roosevelt Martínez D.O. Ordering Physician: Roosevelt Martínez D.O. Date of Service: 12/18/23 Procedure(s): US OB transvaginal Accession Number(s): [id number] cc: Roosevelt Martínez D.O.; Fady Tsang M.D. The [place] [id number] Patient Name: LATHA STEEL MRN: [facility]:[id number] date: 2000 Sex: F Assigned Patient Location: [facility] Current Patient Location: [facility] Accession/Order Number: [id number] Exam Date: 12/18/2023 08:33 Report Date: 12/18/2023 09:11 At the request of: ROOSEVELT MARTÍNEZ Procedure: US OB transvaginal EXAMINATION: US OB transvaginal HISTORY: MISSED MENSES COMPARISON: No relevant comparison available. FINDINGS: GESTATIONAL SAC: Present and normal appearing. YOLK SAC: Absent POLE: Present and normal appearing. CARDIAC: Present. UTERUS: Normal size and appearance. OVARIES: Right: Normal. Left: Normal. CERVIX: 3.7 cm in length and closed. CUL-DE-SAC: Normal. OTHER: None. AGE BY LMP: 9 weeks 3 days DEN BY LMP: 07/19/2024 AGE BY US CRL: 10 weeks 0 days DEN BY US CRL: 07/15/2024 US/US OB transvaginal IMPRESSION: 1. Single live intrauterine . Electronically authenticated by: RONNIE COELHO Date: 12/18/2023 09:11 Dictated By: Ronnie Coelho M.D. Signed By:12/18/23912 DD/ 0 TD/TT: Sack Lifter: us Roosevelt Mauricio DO [facility] IMAGING Final Result documented in this encounter Visit Diagnoses Not on filedocumented in this encounter Care Teams Supervisor Malted Milk Relationship Specialty Start Date End Date Fady Tsang MD PCP - General Family Medicine 04/21/23 documented as of this encounter
--- OUTSIDE RECORDS SUMMARY | 2024-12-27 18:08 | XMS_ITS | Encounter Summary ---
Author Organization [facility] Address [address] [facility] [place] [address] Care Team Providers Care Cheese Maker Name Role Phone Fady Tsang MD Primary Care Provider [phone] Encounter Details Date Type Department Care Team (Late Contact Info) Description 02/01/2024 Abstract [facility] BCP OB [address] [facility] [place] [phone] Pan Martínez, DO [address] [facility] [place] [address] Social History Tobacco Use Types Packs/Day Years [...] [facility] SWS ALL [address] [facility] [address] [place] [phone] Ruy Pmientel MD [address] [facility] [address] [place] [address] documented as of this encounter Visit Diagnoses Not on filedocumented in this encounter Care Teams Cheese Maker Relationship Specialty Start Date End Date Fady Tsang MD PCP - General Family Medicine 04/21/23 documented as of this encounter
--- OUTSIDE RECORDS SUMMARY | 2024-12-27 18:08 | XMS_ITS | Encounter Summary ---
Author Organization [facility] Address [address] [facility] [place] [address] Care Team Providers Care Geospatial Systems Integrator Name Role Phone Fady Tsang MD Primary Care Provider [phone] Encounter Details Date Type Department Care Team (Late Contact Info) Description 07/12/2024 Abstract [facility] BCP OB [address] [facility] [place] [phone] Pan Martínez, DO [address] [facility] [place] [address] Social History Tobacco Use Types Packs/Day Years [...] [facility] SWS ALL [address] [facility] [place] [facility] [address] [place] [phone] Ruy Pimentel MD [address] [facility] [address] [place] [address] documented as of this encounter Visit Diagnoses Not on filedocumented in this encounter Care Teams Geospatial Systems Integrator Relationship Specialty Start Date End Date Fady Tsang MD PCP - General Family Medicine 04/21/23 documented as of this encounter
--- OUTSIDE RECORDS SUMMARY | 2024-12-27 18:08 | XMS_ITS | Encounter Summary ---
Author Organization [facility] Address [address] [facility] [place] [address] Care Team Providers Care Nut Orchardist Name Role Phone Fady Tsang MD Primary Care Provider [phone] Encounter Details Date Type Department Care Team (Late Contact Info) Description 06/15/2024 Abstract [facility] BCP OB [address] [facility] [place] [phone] Pan Martínez, DO [address] [facility] [place] [address] Social History Tobacco Use Types Packs/Day Years [...] [facility] SWS ALL [address] [facility] [address] [place] [phone] Ruy Pimentel MD [address] [facility] [address] [place] [address] documented as of this encounter Visit Diagnoses Not on filedocumented in this encounter Care Teams Nut Orchardist Relationship Specialty Start Date End Date Fady Tsang MD PCP - General Family Medicine 04/21/23 documented as of this encounter
--- OUTSIDE RECORDS SUMMARY | 2024-12-27 18:08 | XMS_ITS | Encounter Summary ---
Author Organization [facility] Address [address] [facility] [place] [address] Care Team Providers Care Site Identification Specialist Name Role Phone Fady Tsang MD Primary Care Provider [phone] Encounter Details Date Type Department Care Team (Late Contact Info) Description 02/12/2024 Abstract [facility] BCP OB [address] [place] [phone] Mirtha Lindquist LPN [address] [facility] [place] [address] Social History Tobacco Use Types [...] Office Visit [facility] SWS ALL [address] [facility] [place] [phone] Ruy Pimentel MD [address] [facility] [address] [place] [address] [place] [address] documented as of this encounter Visit Diagnoses Not on filedocumented in this encounter Care Teams Site Identification Specialist Relationship Specialty Start Date End Date Fady Tsang MD PCP - General Family Medicine 04/21/23 documented as of this encounter
--- OUTSIDE RECORDS SUMMARY | 2024-12-27 18:08 | XMS_ITS | Encounter Summary ---
Author Organization [facility] Address [address] [facility] [place] [address] Care Team Providers Care Boring Machine Operator Double End Name Role Phone Fady Tsang MD Primary Care Provider [phone] Encounter Details Date Type Department Care Team (Late Contact Info) Description 02/10/2024 Abstract [facility] BCP OB [address] [facility] [place] [phone] Pan Martínez, DO [address] [facility] [place] [address] Social History Tobacco Use Types Packs/Day Years [...] [facility] SWS ALL [address] [facility] [address] [place] [phone] Ruy Pimentel MD [address] [facility] [address] [place] [address] documented as of this encounter Visit Diagnoses Not on filedocumented in this encounter Care Teams Boring Machine Operator Double End Relationship Specialty Start Date End Date Fady Tsang MD PCP - General Family Medicine 04/21/23 documented as of this encounter
--- OUTSIDE RECORDS SUMMARY | 2024-12-27 18:08 | XMS_ITS | Encounter Summary ---
Author Organization [facility] Address [address] [place] [address] Care Team Providers Care Zone Manager Name Role Phone Fady Tsang MD Primary Care Provider [phone] Encounter Details Date Type Department Care Team (Late Contact Info) Description 07/07/2024 Abstract [facility] OB [address] [place] [address] [place] [phone] Amarilis Oden LPN Social History Tobacco Use Types Packs/Day Years [...] Office Visit [facility] SWS ALL [address] [phone] Ruy Pimentel MD [address] [address] documented as of this encounter Visit Diagnoses Not on filedocumented in this encounter Care Teams Zone Manager Relationship Specialty Start Date End Date Fady Tsang MD PCP - General Family Medicine 04/21/23 documented as of this encounter
--- OUTSIDE RECORDS SUMMARY | 2024-12-27 18:08 | XMS_ITS | Encounter Summary ---
Author Organization [facility] Address [address] [facility] [place] [address] Care Team Providers Care Basket Braider Name Role Phone Fady Tsang MD Primary Care Provider [phone] Encounter Details Date Type Department Care Team (Late Contact Info) Description 07/19/2024 Abstract [facility] BCP OB [address] [facility] [place] [phone] Pan Martínez, DO [address] [facility] [place] [address] Social History Tobacco Use Types Packs/Day Years [...] [facility] SWS ALL [address] [facility] 360 [place] [phone] Ruy Pimentel MD [address] [facility] [address] [place] [address] documented as of this encounter Visit Diagnoses Not on filedocumented in this encounter Care Teams Basket Braider Relationship Specialty Start Date End Date Fady Tsang MD PCP - General Family Medicine 04/21/23 documented as of this encounter
--- OUTSIDE RECORDS SUMMARY | 2024-12-27 18:08 | XMS_ITS | Encounter Summary ---
Author Organization [facility] Address [address] [facility] [place] [address] Care Team Providers Care Highway Engineering Technician Name Role Phone Fady Tsang MD Primary Care Provider [phone] Encounter Details Date Type Department Care Team (Late Contact Info) Description 03/03/2024 Abstract [facility] BCP OB [address] [facility] [place] [phone] Pan Martínez, DO [address] [facility] [place] [address] Social History Tobacco Use Types Packs/Day Years [...] [facility] SWS ALL [address] [facility] [address] [place] [phone] Ruy Pimentel MD [address] [facility] [address] [place] [address] documented as of this encounter Visit Diagnoses Not on filedocumented in this encounter Care Teams Highway Engineering Technician Relationship Specialty Start Date End Date Fady Tsang MD PCP - General Family Medicine 04/21/23 documented as of this encounter
--- OUTSIDE RECORDS SUMMARY | 2024-12-27 18:08 | XMS_ITS | Encounter Summary ---
Author Organization [facility] Address [address] [facility] [place] [address] Care Team Providers Care Lead Man Over All Dies In Pattern Shop Name Role Phone Fady Tsang MD Primary Care Provider [phone] Encounter Details Date Type Department Care Team (Late Contact Info) Description 03/03/2024 Abstract [facility] BCP OB [address] [facility] [place] [phone] Pan Martínez, DO [address] [facility] [place] [address] Social History Tobacco Use Types Packs/Day Years [...] [facility] SWS ALL [address] [facility] [address] [place] [phone] Ruy Pimentel MD [address] [facility] [address] [place] [address] documented as of this encounter Visit Diagnoses Not on filedocumented in this encounter Care Teams Lead Man Over All Dies In Pattern Shop Relationship Specialty Start Date End Date Fady Tsang MD PCP - General Family Medicine 04/21/23 documented as of this encounter
--- OUTSIDE RECORDS SUMMARY | 2024-12-27 18:08 | XMS_ITS | Encounter Summary ---
Author Organization [facility] Address [address] [facility] [place] [address] Care Team Providers Care Station Baggage Agent Name Role Phone Fady Tsang MD Primary Care Provider [phone] Encounter Details Date Type Department Care Team (Late Contact Info) Description 06/22/2024 Abstract [facility] BCP OB [address] [place] [phone] Pan Martínez, DO [address] [facility] [place] [address] Social History Tobacco Use Types Packs/Day Years [...] [facility] SWS ALL [address] [facility] 360 [place] [phone] Ruy Pimentel MD [address] [facility] [address] [place] [address] documented as of this encounter Visit Diagnoses Not on filedocumented in this encounter Care Teams Station Baggage Agent Relationship Specialty Start Date End Date Fady Tsang MD PCP - General Family Medicine 04/21/23 documented as of this encounter
--- OUTSIDE RECORDS SUMMARY | 2024-12-27 18:08 | XMS_ITS | Encounter Summary ---
Author Organization [facility] Address [address] [facility] [place] [address] Care Team Providers Care Application Defense Manager Name Role Phone Fady Tsang MD Primary Care Provider [phone] Encounter Details Date Type Department Care Team ([facility] Contact Info) Description 04/20/2023 Abstract [facility] BCP OB [address] [facility] [place] [phone] Agata Ross PA [address] [facility] [place] [address] Social History Tobacco Use Types Packs/Day Years Used Date Smoking Tobacco: Never Tobacco Cessation:Counseling Given: Not Answered Alcohol Use Standard Drinks/Week Comments Never 0 [...] Upcoming Encounters Date Type Department Care Team ([facility] Contact Info) Description 01/19/2025 11:00 AM EDT Office Visit [facility] ALL [address] [facility] [address] [place] [phone] Ruy Pimentel MD [address] [facility] [address] [place] [address] documented as of this encounter Visit Diagnoses Not on filedocumented in this encounter Care Teams Application Defense Manager Relationship Specialty Start Date End Date Fady Tsang MD PCP - General Family Medicine 04/21/23 documented as of this encounter
--- NOTE | 2024-12-27 18:09 | ED.GENADUL1 ---
HPI HPI - General Adult General Chief complaint: Neck Pain/Injury Stated complaint: throat pain Time Seen by Provider: 12/27/24 18:03 Source: patient Mode of arrival: walk-in Limitations: no limitations History of Present Illness HPI narrative: 24-year-old female presents emergency room chief complaint sore throat and right-sided neck pain. She was seen in urgent care prior to arrival and sent here for further evaluation because she was complaining of neck pain and had a swollen lymph node. Patient is familiar to me and know her well. Patient states she does have a history of POTS. States the symptoms of sore throat with sinus congestion, pressure and pain started several days ago. She is not currently febrile. She has a small palpable node noted to the right anterior cervical neck <1centimeter. Patient's had no fever or chills Related Data Previous Rx's ?Medication ?Instructions ?Recorded azithromycin 250 mg tablet See Rx Instructions PO .COMPLEX #6 12/27/24 (Zithromax) tabs Allergies Allergy/AdvReac Type Severity Reaction Status Date / Time cephalexin AdvReac Intermediate Vomiting Verified 12/27/24 18:09 Opioid HPI Opioid Management Most Recent Opioid Data: Last Pain Scale 8 07/31/24, 20:00 Ur Phencyclidine Scrn, (NEGATIVE) Negative 07/11/24, 20:20 Review of Systems ROS Status of ROS 10 or more systems reviewed and unremarkable except as noted in history and below PFSH PFSH Social History Smoking status: Never smoker Little interest or pleasure in doing things: not at all Feeling down, depressed, or hopeless: not at all Exam Narrative Exam Narrative: All Systems are negative except as noted/marked.All systems reviewed and otherwise negative Nurses note and vital signs reviewed and patient is not hypoxic. General: The patient appears well and in no apparent distress. Patient is resting comfortably on cart. Skin: Warm, dry, no pallor noted. There is no rash noted. Head: Normocephalic, atraumatic. neck, right lateral cervical tenderness, small lymph node palpated Eye: Normal conjunctiva, no drainage, EOMI. PERRL Ears, Nose, Mouth, and Throat: oral mucosa is moist, mild erythema with nasal drainage. Nares patent. Mouth without vesicles. Ear canals patent. Tm's without Erythema Cardiovascular: Regular Rate and Rhythm Respiratory: Patient is in no distress, no accessory muscle use, lungs are clear to auscultation, no wheezing, rales or rhonchi Musculoskeletal: The patient has no evidence of calf tenderness, no pitting edema, symmetrical pulses noted bilaterally Neurological: A&O x4, normal speech Psychiatric: Cooperative Constitutional Vital Signs, click to edit/add: Last Vital Signs Temp 98 F 12/27/24 18:03 Pulse 78 12/27/24 18:03 Resp 16 12/27/24 18:03 BP 162/100 H 12/27/24 18:03 Pulse Ox 100 12/27/24 18:03 O2 Del Method Room Air 12/27/24 18:03 Course Vital Signs Vital signs: Vital Signs Temperature 98 F 12/27/24 18:03 Pulse Rate 78 12/27/24 18:03 Respiratory Rate 16 12/27/24 18:03 Blood Pressure 162/100 H 12/27/24 18:03 Pulse Oximetry 100 12/27/24 18:03 Oxygen Delivery Method Room Air 12/27/24 18:03 Temperature 98 F 12/27/24 18:03 Pulse Rate 78 12/27/24 18:03 Respiratory Rate 16 12/27/24 18:03 Blood Pressure 162/100 H 12/27/24 18:03 Pulse Oximetry 100 12/27/24 18:03 Oxygen Delivery Method Room Air 12/27/24 18:03 Medical Decision Making MDM Narrative Medical decision making narrative: 24-year-old female presents emergency room chief complaint sore throat and right-sided neck pain. She was seen in urgent care prior to arrival and sent here for further evaluation because she was complaining of neck pain and had a swollen lymph node. Patient is familiar to me and know her well. Patient states she does have a history of POTS. States the symptoms of sore throat with sinus congestion, pressure and pain started several days ago. She is not currently febrile. She has a small palpable node noted to the right anterior cervical neck <1centimeter. Patient's had no fever or chills. patient appears anxious but symptoms benign. Patient was referred here from urgent care. Upon arrival patient complained of right lateral neck pain and sore throat. She has posterior nasal drainage noted also states she has had sinus pressure and pain for several days. She is anxious and has a history of POTS. She has a recent history of losing and . She does have some stress and anxiety from that. Patient denies depression but states she is anxious and does not like taking any medications. She had recently completed a course of Augmentin due to a left breast abscess, nodule. Rapid strep was obtained here and negative. Mass is slightly tender and palpable and freely mobile. Patient while her symptoms she states she is supposed be taking levothyroxine hide no kinds of medications due to her thyroid. She would like blood work and TSH checked. All lab work was drawn and negative at this time. I do spoke to the patient at length about stress anxiety and also her symptoms today. She was placed on a Z-Ryan as she states she does not tolerate Keflex well has history of abdominal pain diarrhea from Keflex. Patient will follow-up with primary care physician. Otherwise healthy and stable at this time. Differential Diagnosis Differential Diagnosis: pharyngitis, neck pain, lymph node Medical Records Medical records reviewed: Yes I reviewed the patient's medical records Lab Data Lab results reviewed: Yes I reviewed the patient's lab results Labs: Lab Results 12/27/24 12/27/24 Range/Units 18:10 18:45 WBC 8.3 (4.0-11.0) 10^3/uL RBC 4.59 (4.20-5.40) 10^6/uL Hgb 13.3 (12.0-16.0) g/dL Hct 38.7 (36.0-48.0) % MCV 84.3 (81.0-99.0) fL MCH 29.0 (26.7-34.0) pg MCHC 34.4 (29.9-35.2) g/dL RDW 13.0 (11.0-15.0) % Plt Count 317 (150-450) 10^3/uL MPV 11.3 (9.5-13.5) fL Neut % (Auto) 67.2 (43.0-75.0) % Lymph % (Auto) 25.8 (20.5-60.0) % [place] % (Auto) 5.7 (1.7-12.0) % Eos % (Auto) 0.4 L (0.9-7.0) % Baso % (Auto) 0.7 (0.2-2.0) % Neut # (Auto) 5.6 (1.4-6.5) 10^3/uL Lymph # (Auto) 2.1 (1.2-3.8) 10^3/uL [place] # (Auto) 0.5 (0.3-0.8) 10^3/uL Eos # (Auto) 0.0 (0.0-0.7) 10^3/uL Baso # (Auto) 0.1 (0.0-0.1) 10^3/uL Abs Immat Gran (auto) 0.02 (0.00-0.03) 10^3/uL Imm/Tot Granulo (auto) 0.2 (0.0-0.5) % Sodium 142 (136-145) mmol/L Potassium 4.0 (3.5-5.1) mmol/L Chloride 105 (98-107) mmol/L Carbon Dioxide 25.7 (21.0-32.0) mmol/L Anion Gap 15.3 BUN 14.0 (7.0-18.0) mg/dL Creatinine 0.81 (0.55-1.02) mg/dL Est GFR ( Amer) >60 (>=60 mL/min/1.73m^2) Est GFR (Non-Af Amer) >60 (>=60 mL/min/1.73m^2) BUN/Creatinine Ratio 17.3 Glucose 98 (74-106) mg/dL Calcium 9.6 (8.5-10.1) mg/dL Total Bilirubin 0.3 (0.2-1.0) mg/dL AST 13 L (15-37) U/L ALT 18 (14-59) U/L Alkaline Phosphatase 82 (46-116) U/L Total Protein 7.8 (6.4-8.2) g/dL Albumin 4.0 (3.4-5.0) g/dL Globulin 3.8 g/dL Albumin/Globulin Ratio 1.1 TSH 2.003 (0.358-3.740) uIU/mL TSH & Free T4 Interp 2.003 (0.358-3.740) uIU/mL Streptococcus Screen Negative ECG Data Attestation: ?I have reviewed the pertinent ECG results. Interpretation: 1849 rhythm with a rate of 77 bpm, AR interval 172 ms, QRS duration 102 ms, no ST elevation or depression, no stemi Discharge Plan Discharge Chief Complaint: Neck Pain/Injury Clinical Impression: Pharyngitis, Lymphadenopathy Patient Disposition: Home, Self-Care Time of Disposition Decision: 19:37 Condition: Good Prescriptions / Home Meds: New azithromycin [Zithromax] 250 mg tablet See Rx Instructions .ROUTE .COMPLEX Qty: 6 0RF Rx Instructions: For 250 mg dose pack: take 500 mg today (day 1), then 250 mg for 4 days (days 2-5) Print Language: Hong Konger Instructions: Pharyngitis (ED), Lymphadenopathy (ED) Additional Instructions: TSO3 [facility] [phone] Referrals: Fady Tsang MD [Primary Care Provider, Family Practice] - 1 week
[2024-12-27 18:25] LABS: Internal Control Within Normal Limits; Strep A Antigen Screen Negative
[2024-12-27] MEDS: DEXAMETHASONE SOD PHOS 10 MG/ML VIAL PO (18:25)
[2024-12-27] MEDS: IBUPROFEN 600 MG TABLET PO (18:25)
--- NOTE | 2024-12-27 18:40 | ECG_ITS ---
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 Measurements Intervals [place] Rate: 77 P: 48 VA: 172 QRS: 37 QRSD: 102 T: 49 QT: 356 QTc: 388 Interpretive Statements 1100 Sinus rhythm 2420 RSR (QR) in lead V1/V2, consistent with right ventricular conduction delay 9130 borderline ECG Compared to ECG 10/30/2024 15:07:52 No significant changes Electronically Signed On 12-27-2024 21:45:34 EDT by ANNA LI M.D.
[2024-12-27 18:54] LABS: Basophils Absolute Auto 0.1 10^3/uL (0.0-0.1); Basophils Percent Auto 0.7 % (0.2-2.0); Eosinophils Percent Auto 0.4 % (0.9-7.0); Hematocrit 38.7 % (36.0-48.0); Hemoglobin 13.3 g/dL (12.0-16.0); Immature Granulocytes Abs Auto 0.02 10^3/uL (0.00-0.03); Immature Granulocytes Pct Auto 0.2 % (0.0-0.5); Lymphocytes Absolute Auto 2.1 10^3/uL (1.2-3.8); Lymphocytes Percent Auto 25.8 % (20.5-60.0); Mean Corpuscular HGB Conc 34.4 g/dL (29.9-35.2); Mean Corpuscular Volume 84.3 fL (81.0-99.0); Mean Platelet Volume 11.3 fL (9.5-13.5); Monocytes Absolute Auto 0.5 10^3/uL (0.3-0.8); Monocytes Percent Auto 5.7 % (1.7-12.0); Neutrophils Absolute Auto 5.6 10^3/uL (1.4-6.5); Neutrophils Percent Auto 67.2 % (43.0-75.0); Platelet Count 317 10^3/uL (150-450); Red Blood Count 4.59 10^6/uL (4.20-5.40); White Blood Count 8.3 10^3/uL (4.0-11.0)
[2024-12-27 19:11] LABS: Alanine Aminotransferase 18 U/L (14-59); Albumin Globulin Ratio 1.1; Alkaline Phosphatase 82 U/L (46-116); Anion Gap 15.3; Aspartate Amino Transferase 13 U/L (15-37); BUN Creatinine Ratio 17.3; Bilirubin Total 0.3 mg/dL (0.2-1.0); Calcium 9.6 mg/dL (8.5-10.1); Carbon Dioxide 25.7 mmol/L (21.0-32.0); Chloride 105 mmol/L (98-107); Estimated GFR (African America >60 (>=60 mL/min/1.73m^2); Estimated GFR (Non-African Ame >60 (>=60 mL/min/1.73m^2); Globulin 3.8 g/dL; Glucose 98 mg/dL (74-106); Sodium 142 mmol/L (136-145); Total Protein 7.8 g/dL (6.4-8.2)
[2024-12-27 19:20] LABS: TSH W/ REFLEX FT4 2.003 uIU/mL (0.358-3.740); Thyroid Stimulating Hormone 2.003 uIU/mL (0.358-3.740)
== END 2024-12-27 19:50 | disposition home or self-care (01) ==
PROVIDERS: Physician Assistant; Emergency Provider Emergency Medicine; PCP Family Medicine
DX: J02.9 Acute pharyngitis, unspecified (principal); R59.1 Generalized enlarged lymph nodes; G90.A Postural orthostatic tachycardia syndrome [POTS]
CPT/HCPCS: 36415; 80053; 84443; 85025; 87070; 87880; 93005; 99285; J1100

== ENCOUNTER 2025-02-02 13:54 | Outpatient (OUT) | payer BC, MEDICAID, SELFPAY ==
--- OUTSIDE RECORDS SUMMARY | 2024-09-03 10:00 | XMS_ITS ---
Author Organization The [facility] in [place] Address [address] [place] [address] Care Team Providers Care Executive Relations Specialist Name Role Phone Kentrell Tsang Primary Care Provider REASON FOR VISIT CT- LMTCBx3 Encounters Encounter Location Date Provider Diagnosis [facility] [address] [place] [address] 09/03/2024 Kentrell Tsang Plan Of Treatment No Information Progress Notes * Latha STEEL EDOB:[birth year] (24 yo F)Acc No.[id number]:09/03/2024 Patient: Loan BROWN Latha Herndon :2000 A ge:24 Y S ex:Female Address:[address] [place] [address] * true * Date: Generated for Geovannyi dorys/Contreras/eTransmitting on: 0 02/02/2025 01:58 PM EDT
--- OUTSIDE RECORDS SUMMARY | 2024-12-16 10:15 | XMS_ITS ---
Author Organization The [facility] in [place] Address [address] [place] [address] Care Team Providers Care Addiction Specialist Name Role Phone Sharan Kentrell Primary Care Provider Allergies No Known Allergies Reason For Referral Diagnosis 1 Hives (L50.9) Referral Organization [facility] Medicine Referring Provider First Name Kentrell Referring [...] No Points 0 Interpretation Negative Vital Signs Blood pressure systolic 116 mm Hg 12/17/19 25 Blood pressure diastolic 72 mm Hg 025 Height 64 in 12/16/2024 Weight 161 lbs 12/16/2024 BMI 27.63 kg/m2 12/16/2024 Encounters Encounter Location Date Provider Diagnosis [facility] [address] [place] [address] 12/16/2024 Kentrell Brendeny Gastroenteritis K52. 9 and [...] East back into eating by eating bland, zbnc-kf-ggbecn foods like crackers, toast, gelatin, bananas, rice and chicken. Try to avoid foods/substances including dairy products, caffeine, alcohol, nicotine and fatty or highly seasoned foods. Medications such as ibuprofen or tylenol can make your stomach more upset, so use sparingly if at all. Also avoid snrv-tzc-vhxeokh anti-diarrheal medications because it can make it [...] East back into eating by eating bland, uedj-ft-nfhomj foods like crackers, toast, gelatin, bananas, rice and chicken. Try to avoid foods/substances including dairy products, caffeine, alcohol, nicotine and fatty or highly seasoned foods. Medications such as ibuprofen or tylenol can make your stomach more upset, so use sparingly if at all. Also avoid fows-mnb-mxjczrb anti-diarrheal medications because it can make it harder for your body to eliminate the virus. Referrals Referral Date Details 12/16/2024 12/16/2024, Ruy cedeño Progress Notes * Latha STEEL EDOB:[birth year] (24 yo F)Acc No.[id number]:12/16/2024 Progress Note Patient: Latha BOONE Provider: Gladys Tsang ([facility])MD :2000 A ge:24 Y S ex:Female Date:12/16/2024 Address:[address] [place] [address], [id number] Check In:02:07 PM ESTCheck O ut:03:09 PM [...] Edema d enies. P alpitations d enies. � G astrointestinal: Comments S ee HPI for details. 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
--- OUTSIDE RECORDS SUMMARY | 2025-02-02 13:58 | XMS_ITS | Encounter Summary ---
Author Organization [facility] Address [address] [facility] [place] [address] Care Team Providers Care Clinical Technologist Name Role Phone Fady Tsang MD Primary Care Provider [phone] Encounter Details Date Type Department Care Team (Late Contact Info) Description 02/01/2024 Abstract [facility] [address] [place] [phone] Pan Martíenz, DO [address] [place], [place] [phone] Social History Tobacco Use Types Packs/Day Years [...] Department Care Team (Late Contact Info) Description 03/27/2025 3:20 PM EDT Office Visit [facility] [address] [facility] [address] [place] [address] Ruy Pimentel MD [address] [facility] [address] [place] [address] documented as of this encounter Visit Diagnoses Not on filedocumented in this encounter Care Teams Clinical Technologist Relationship Specialty Start Date End Date Fady Tsang MD PCP - General Family Medicine 04/21/23 documented as of this encounter
--- OUTSIDE RECORDS SUMMARY | 2025-02-02 13:58 | XMS_ITS | Encounter Summary ---
Author Organization [facility] Address [address] [place] [address] Care Team Providers Care Storm Window Installer Name Role Phone Fady Tsang MD Primary Care Provider [phone] Encounter Details Date Type Department Care Team (Late st Contact Info) Description 03/02/2024 Clinisync Result Encounter [facility] External Department Unsolicited Agata Meza, EDMOND [address] [place] [address] [place] [address] Social History Tobacco Use Types Packs/Day Years [...] Care Team (Late st Contact Info) Description 03/27/2025 3:20 PM EDT Office Visit [facility] [address] [place] [address] [place] [phone] Ruy Pimentel MD [address] [facility] [address] [place] [address] documented as of this encounter Procedures Procedure Name Priority Date/Time Associated Diagnosis Comments US OB ANATOMY 03/02/2024 4:03 PM EDT documented in this encounter Results * US OB ANATOMY (03/02/2024 4:03 PM EDT) Anatomical Region Laterality Modality Other 03/02/2024 4:03 PM EDT Narrative 03/02/2024 4:06 PM EDT [address] [address] Ultrasound Report Signed Patient: LATHA STEEL MR#: [id number] : 2000 Acct:[id number] Age/Sex: 23 / F ADM Date: 03/02/24 Loc: [facility] Attending Dr: Agata Meza Ordering Physician: Agata Meza Date of Service: 03/02/24 Procedure(s): US OB anatomy Accession Number(s): [id number] cc: Agata Meza; Fady Tsang M.D. [address] [address] Patient Name: LATHA STEEL MRN: [id number] date: 2000 Sex: F Assigned Patient Location: [facility] Current Patient Location: [facility] Accession/Order Number: [id number] Exam Date: 03/02/2024 14:41 Report Date: 03/02/2024 [...] Signed By: 03/02/24 1606 DD/ 160 TD/TT: Jig Inspector: Procedure Note Radiology, Radiologist, - 03/02/2024 [place] [address] Ultrasound Report Signed Patient: LATHA STEEL EMR#: [id number] : 2000Acct:[id number] Age/Sex: 23 / FADM Date: 03/02/24 Loc: [facility] Attending Dr: Agata Meza Ordering Physician: Agata Meza Date of Service: 03/02/24 Procedure(s): US OB anatomy Accession Number(s): [id number] cc: Agata Meza; Fady Tsang M.D. [facility] [place] [id number] Patient Name: LATHA STEEL MRN: [id number] date: 2000 Sex: F Assigned Patient Location: [facility] Current [facility] Location: [facility] Accession/Order Number: [id number] Exam Date: 03/02/2024 14:41 Report Date: 03/02/2024 [...] 16:03 Dictated By: Julisa Alvarez M.D. Signed By:03/02/24 1606 DD/ 02 TD/TT: Jig Inspector: us Agata [facility] Final Result documented in this encounter Visit Diagnoses Not on filedocumented in this encounter Care Teams Storm Window Installer Relationship Specialty Start Date End Date Fady Tsang MD PCP - General Family Medicine 04/21/23 documented as of this encounter
--- OUTSIDE RECORDS SUMMARY | 2025-02-02 13:58 | XMS_ITS | Encounter Summary ---
Author Organization [facility] Address [address] [facility] [place] [address] Care Team Providers Care Orthotics Technician Name Role Phone Fady Tsang MD Primary Care Provider [phone] Encounter Details Date Type Department Care Team (Late st Contact Info) Description 07/07/2024 Abstract [facility] [address] [facility] [place] [address] Amarilis Oden LPN Social History Tobacco Use [...] Office Visit [facility] [address] [phone] Ruy Pimentel MD [address] [address] documented as of this encounter Visit Diagnoses Not on filedocumented in this encounter Care Teams Orthotics Technician Relationship Specialty Start Date End Date Fady Tsang MD PCP - General Family Medicine 04/21/23 documented as of this encounter
--- OUTSIDE RECORDS SUMMARY | 2025-02-02 13:58 | XMS_ITS | Encounter Summary ---
Author Organization [facility] Address [address] [place] [address] Care Team Providers Care Air Traffic Instructor Name Role Phone Fady Tsang MD Primary Care Provider [phone] Encounter Details Date Type Department Care Team (Late Contact Info) Description 11/23/2023 Abstract [facility] [address] [place] [phone] Kareen Alicea, RN [address] [place], [place] [phone] Social History Tobacco Use Types Packs/Day Years [...] Office Visit [facility] [address] [facility] [address] [place] [phone] Ruy Pimentel MD [address] [facility] [address] [place] [address] documented as of this encounter Visit Diagnoses Not on filedocumented in this encounter Care Teams Air Traffic Instructor Relationship Specialty Start Date End Date Fady Tsang MD PCP - General Family Medicine 04/21/23 documented as of this encounter
--- OUTSIDE RECORDS SUMMARY | 2025-02-02 13:58 | XMS_ITS | Encounter Summary ---
Author Organization [facility] Address [address] [facility] [place] [address] Care Team Providers Care Microelectronics Engineer Name Role Phone Fady Tsang MD Primary Care Provider [phone] Encounter Details Date Type Department Care Team (Late Contact Info) Description 07/12/2024 Abstract [facility] [address] [place] [address] Pan Martínez DO [address] [place], [place] [phone] Social History Tobacco Use Types Packs/Day Years [...] Office Visit [facility] [address] [facility] [address] [place] [address] Ruy Pimentel MD [address] [facility] [address] [place] [address] documented as of this encounter Visit Diagnoses Not on filedocumented in this encounter Care Teams Microelectronics Engineer Relationship Specialty Start Date End Date Fady Tsang MD PCP - General Family Medicine 04/21/23 documented as of this encounter
--- OUTSIDE RECORDS SUMMARY | 2025-02-02 13:58 | XMS_ITS | Encounter Summary ---
Author Organization [facility] Address [address] [facility] [place] [address] Care Team Providers Care Hand Stone Polisher Name Role Phone Fady Tsang MD Primary Care Provider [phone] Encounter Details Date Type Department Care Team (Late st Contact Info) Description 02/01/2025 Telephone [facility] [address] [facility] [place] [phone] Mirtha Lindquist LPN [address] [place] [address] Social History Tobacco Use Types [...] encounter Miscellaneous Notes * Telephone Encounter - Mirtha Lindquist LPN - 02/01/2025 2:13 PM EDT Pt called stating that she got a positive test but she is unsure how far along she is. I told her that can send over an HCG level to be done documented in this encounter Plan of Treatment Upcoming Encounters Date Type Department Care Team (Late Contact Info) Description 03/27/2025 3:20 PM EDT Office Visit [facility] [address] [place] [phone] Ruy Pimentel MD [address] [facility] [address] [place] [address] Scheduled Orders Name Type Priority Associated Diagnoses Orde r Schedule hCG, quantitative, Lab Routine Positive urine test ([facility]) Expected: 02/01/2025 (Approximate), Expires: 02/01/2026 documented as of this encounter Visit Diagnoses Diagnosis Positive urine test ([facility]) documented in this encounter Care Teams Hand Stone Polisher Relationship Specialty Start Date End Date Fady Tsang MD PCP - General Family Medicine 04/21/23 documented as of this encounter
--- OUTSIDE RECORDS SUMMARY | 2025-02-02 13:58 | XMS_ITS | Encounter Summary ---
Author Organization [facility] Address [address] [place] [address] Care Team Providers Care Slope Hoist Operator Name Role Phone Fady Tsang MD Primary Care Provider [phone] Encounter Details Date Type Department Care Team (Latest Contact Info) Description 01/19/2025 Travel Social History Tobacco Use Types Packs/Day Years [...] Office Visit [facility] [address] [phone] Ruy Pimentel MD [address] [address] documented as of this encounter Visit Diagnoses Not on filedocumented in this encounter Care Teams Slope Hoist Operator Relationship Specialty Start Date End Date Fady Tsang MD PCP - General Family Medicine 04/21/23 documented as of this encounter
--- OUTSIDE RECORDS SUMMARY | 2025-02-02 13:58 | XMS_ITS | Encounter Summary ---
Author Organization [facility] Address [address] [facility] [place] [address] Care Team Providers Care Digital Media Manager Name Role Phone Fady Tsang MD Primary Care Provider [phone] Encounter Details Date Type Department Care Team (Late st Contact Info) Description 12/18/2023 Clinisync Result Encounter [facility] External Department Unsolicited Roosevelt Martínez, DO [address] [facility] [address] [place] [address] Social History Tobacco Use Types Packs/Day Years [...] Office Visit [facility] [address] [place] [phone] Ruy Pimentel MD [address] [place] [address] documented as of this encounter Procedures Procedure [...] * HBSAG SCREEN (12/18/2023 12:04 PM EDT) Pathologist [facility] HBSAG SCREEN Negative Negative [facility] Comment: Performed at: - [facility] [id number] Counter Help: Samson Ibarra PhD, Phone: [phone] 12/18/2023 12:0 4 PM EDT 12/18/2023 12:10 PM EDT Narrative THAIS - 12/19/2023 12:11 PM EDT us Roosevelt Martínez DO LAB BLOOD ORDERABLES Final Resul t [facility] * RAPID PLASMA REAGIN, QUANT (12/18/2023 12:04 PM EDT) Pathologist [facility] RAPID PLASMA REAGIN, QUANT Non Reactive NonRea<1: 1 titer [facility] Comment: Please Note: This test does not meet current guidelines for screening and diagnosis of syphilis. This test is intended for following treatment response in patients being treated for syphilis infection. To screen for syphilis infection, a reflex cascade that includes both RPR and a treponema-specific assay should be utilized, such as Treponema pallidum (Syphilis) Screening [place] (644399) or Rapid Plasma Reagin (RPR) Test With Reflex to Quantitative RPR and Confirmatory Treponema pallidum Antibodies (257131). Performed at: [address] [id number] Counter Help: Samson Ibarra PhD, Phone: [phone] 12/18/2023 12:0 4 PM EDT 12/18/2023 12:10 PM EDT Narrative CLINISYVA - 12/19/2023 12:11 PM EDT [facility] LAB BLOOD ORDERABLES Final Resul t Performing Organization Address City/[facility] Co de Phone Number [facility] * HCV ANTIBODY RFX TO QUANT PCR (12/18/2023 12:04 PM EDT) HCV AB Non Reactive Non Reactive [facility] INTERPRETATION: Comment . [facility] Comment: Not infected with HCV unless early or acute infection is suspected (which may be delayed in an immunocompromised individual), or other evidence exists to indicate HCV infection. 12/18/2023 12:0 4 PM EDT 12/18/2023 12:10 PM EDT Narrative CLINISYVA - 12/19/2023 8:12 AM EDT us Roosevelt Mauricio LAB BLOOD ORDERABLES Final Resul t Performing Organization Address City/[facility]/ZIP Co de Phone Number [facility] * HIV AB/P24 AG WITH REFLEX (12/18/2023 12:04 PM EDT) HIV AB/P24 AG SCREEN Non Reactive Non Reactive [facility] Comment: HIV Negative HIV-1/HIV-2 antibodies and HIV-1 p24 antigen were NOT detected. There is no laboratory evidence of HIV infection. Performed at: [address] [id number] Counter Help: Samson Ibarra PhD, Phone: [phone] 12/18/2023 12:0 4 PM EDT 12/18/2023 12:10 PM EDT Narrative CLINISYNC - 12/19/2023 8:12 AM EDT [facility] Mauricio DO LAB BLOOD ORDERABLES Final Resul t Performing Organization Address City/[facility]/ZIP Co de Phone Number [facility] * ALL RUBELLA IGG AB (12/18/2023 12:04 PM EDT) Pathologist [facility] RUBELLA ANTIBODIES, IGG 5.47 Immune >0.99 index TB Comment: Non-immune <0.90 Equivocal 0.90 - 0.99 Immune >0.99 Performed at: [facility] [address] [id number] Counter Help: Samson Ibarra PhD, Phone: [phone] 12/18/2023 12:0 4 PM EDT 12/18/2023 12:10 PM EDT Narrative CLINISYNC - 12/19/2023 8:12 AM EDT Roosevelt Mauricio DO CLINISYNC Final Result Performing Organization Address [facility]/ZIP Co de Phone Number [facility] * ALL TYPE AND SCREEN (12/18/2023 12:04 PM EDT) Pathologist [facility] BLOOD TYPE O Positive TBH ANTIBODY SCREEN NEGATIVE TB 12/18/2023 12:0 4 PM EDT 12/18/2023 12:10 PM EDT Narrative CLINISYVA - 12/18/2023 1:04 PM EDT [facility] , Roosevelt Mauricio DO CLINISYNC Final Result Performing Organization Address City/[facility]/ZIP Co de Phone Number [facility] * MLR HEMOGLOBIN A1C (12/18/2023 12:04 PM EDT) Pathologist [facility] GLYCOHEMOGLOBIN A1C 4.9 4.5 - 6.2 % [facility] Comment: ADA RECOMMENDED LIMIT 4.0 - 6.0 ADA THERAPEUTIC TARGET < 7.0 ACTION SUGGESTED > 7.0 ESTIMATED AVERAGE GLUCOSE 94 mg/dL TB 12/18/2023 12:0 4 PM EDT 12/18/2023 12:10 PM EDT Narrative CLINISYNC - 12/18/2023 12:32 PM EDT us Roosevelt Marsho DO CLINISYNC Final [facility] * (ABNORMAL) ALL CBC WITH AUTO DIFF (12/18/2023 12:04 PM EDT) TB WBC 11.7(H) 4.0 - 11.0 10 3/uL [...] AUTO 0.03 0.00 - 0.03 10 3/uL TBH 12/18/2023 12:0 4 PM EDT 12/18/2023 12:10 PM EDT Narrative THAIS - 12/18/2023 12:26 PM EDT us Roosevelt Martínez DO CLINISYNC Final Result Performing Organization Address City/State/[facility] Co de Phone Number [facility] * US OB TRANSVAGINAL (12/18/2023 9:11 AM EDT) Anatomical Region Laterality Modality Other 12/18/2023 9:11 AM EDT Narrative 12/18/2023 9:13 [place] [address] Ultrasound Report Signed Patient: LATHA STEEL MR#: [id number] : 2000 Acct:[id number] Age/Sex: 23 / F ADM Date: 12/18/23 Loc: [facility] Attending Dr: Roosevelt Martínez D.O. Ordering Physician: Roosevelt Martínez D.O. Date of Service: 12/18/23 Procedure(s): US OB transvaginal Accession Number(s): [id number] cc: Roosevelt Martínez D.O.; Fady Tsang M.D. [place] [id number] Patient Name: LATHA STEEL MRN: [facility]:[id number] date: 2000 Sex: F Assigned Patient [facility] Current Patient Location: [facility] Accession/Order Number: [id number] Exam Date: 12/18/2023 08:33 Report Date: 12/18/2023 [...] Single live intrauterine . Electronically authenticated by: ALEXIS COELHO Date: 12/18/2023 09:11 Dictated By: Alexis Coelho M.D. Signed By: 12/18/23912 DD/ 0 TD/TT: Public Health Training Assistant: Procedure Note Radiology, Radiologist, - 12/18/2023 [place] [address] Ultrasound Report Signed Patient: LATHA STEEL EMR#: [id number] : 2000Acct:[id number] Age/Sex: 23 / FADM Date: 12/18/23 Loc: [facility] Attending Dr: Roosevelt Martínez D.O. Ordering Physician: Roosevelt Martínez D.O. Date of Service: 12/18/23 Procedure(s): US OB transvaginal Accession Number(s): [id number] cc: Roosevelt Martínez D.O.; Fady Tsang M.D. The [address] [address] Patient Name: LATHA STEEL MRN: [id number] date: 2000 Sex: F Assigned Patient Location: [facility] Current Patient Location: [facility] Accession/Order Number: [id number] Exam Date: 12/18/2023 08:33 Report Date: 12/18/2023 [...] Single live intrauterine . Electronically authenticated by: ALEXIS COELHO Date: 12/18/2023 09:11 Dictated By: Alexis Coelho M.D. Signed By:12/18/23912 DD/ 0 TD/TT: Public Health Training Assistant: us Roosevelt Mauricio DO [facility] IMAGING Final Result documented in this encounter Visit Diagnoses Not on filedocumented in this encounter Care Teams Digital Media Manager Relationship Specialty Start Date End Date Fady Tsang MD PCP - General Family Medicine 04/21/23 documented as of this encounter
--- OUTSIDE RECORDS SUMMARY | 2025-02-02 13:58 | XMS_ITS | Encounter Summary ---
Author Organization [facility] Address [address] [place] [address] Care Team Providers Care Director Game Name Role Phone Fady Tsang MD Primary Care Provider [phone] Encounter Details Date Type Department Care Team (Late st Contact Info) Description 03/02/2024 Clinisync Result Encounter [facility] External Department Unsolicited Agata Meza, EDMOND [address] [place] [address] [place] [address] Social History Tobacco Use Types Packs/Day Years [...] ALL [address] [place] [address] Ruy Pimentel MD [address] [place] [address] documented as of this encounter Procedures Procedure Name Priority Date/Time Associated Diagnosis Comments US OB CERVICAL LENGTH 03/02/2024 4:03 PM EDT documented in this encounter Results * US OB CERVICAL LENGTH (03/02/2024 4:03 PM EDT) Anatomical Region Laterality Modality Other 03/02/2024 4:03 PM EDT Narrative 03/02/2024 4:06 [place] [address] Ultrasound Report Signed Patient: LATHA STEEL MR#: [id number] : 2000 Acct:[id number] Age/Sex: 23 / F ADM Date: 03/02/24 Loc: [facility] Attending Dr: Agata Meza Ordering Physician: Agata Meza Date of Service: 03/02/24 Procedure(s): US OB cervical length Accession Number(s): [id number] cc: Agata Meza; Fady Tsang M.D. [place] [id number] Patient Name: LATHA STEEL MRN: [id number] date: 2000 Sex: F Assigned Patient Location: [facility] Current Patient Location: [facility] Accession/Order Number: [id number] Exam Date: 03/02/2024 14:41 Report Date: 03/02/2024 [...] Signed By: 03/02/24 1606 DD/ 02 TD/TT: Photovoltaic Technician: Procedure Note Radiology, Radiologist, - 03/02/2024 [place] [address] Ultrasound Report Signed Patient: LATHA STEEL EMR#: [id number] : 2000Acct:[id number] Age/Sex: 23 / FADM Date: 03/02/24 Loc: [facility] Attending Dr: Agata Meza Ordering Physician: Agata Meza Date of Service: 03/02/24 Procedure(s): US OB cervical length Accession Number(s): [id number] cc: Agata Meza; Fady Tsang M.D. The [place] [id number] Patient Name: LATHA STEEL MRN: [facility]:[id number] date: 2000 Sex: F Assigned Patient Location: [facility] Current Patient Location: [facility] Accession/Order Number: [id number] Exam Date: 03/02/2024 14:41 Report Date: 03/02/2024 [...] 16:03 Dictated By: Julisa Alvarez M.D. Signed By:03/02/241605 DD/ 02 TD/TT: Photovoltaic Technician: us Agata PRUITT [facility]AG[facility] Final Result documented in this encounter Visit Diagnoses Not on filedocumented in this encounter Care Teams Director Game Relationship Specialty Start Date End Date Fady Tsang MD PCP - General Family Medicine 04/21/23 documented as of this encounter
--- OUTSIDE RECORDS SUMMARY | 2025-02-02 13:58 | XMS_ITS | Encounter Summary ---
Author Organization [facility] Address [address] [facility] [place] [address] Care Team Providers Care Lamp Wirer Name Role Phone Fady Tsang MD Primary Care Provider [phone] Encounter Details Date Type Department Care Team (Late Contact Info) Description 02/10/2024 Abstract [facility] BCP OB [address] [place] [phone] Pan Martínez, DO [address] [place], [place] [address] Social History Tobacco Use Types Packs/Day Years [...] Office Visit [facility] ALL [address] [facility] 360 [place] [address] Ruy Pimentel MD [address] [facility] [address] [place] [address] documented as of this encounter Visit Diagnoses Not on filedocumented in this encounter Care Teams Lamp Wirer Relationship Specialty Start Date End Date Fady Tsang MD PCP - General Family Medicine 04/21/23 documented as of this encounter
--- OUTSIDE RECORDS SUMMARY | 2025-02-02 13:58 | XMS_ITS | Encounter Summary ---
Author Organization [facility] Address [address] [facility] [place] [address] Care Team Providers Care Executive Administrator Name Role Phone Fady Tsang MD Primary Care Provider [phone] Encounter Details Date Type Department Care Team (Late Contact Info) Description 06/22/2024 Abstract [facility] BCP OB [address] [place] [address] Pan Martínez DO [address] [place], [place] [phone] Social History Tobacco Use Types Packs/Day Years [...] Office Visit [facility] SWS ALL [address] [facility] 360 [place] [address] Ruy Pimentel MD [address] [facility] 360 [place] [address] documented as of this encounter Visit Diagnoses Not on filedocumented in this encounter Care Teams Executive Administrator Relationship Specialty Start Date End Date Fady Tsang MD PCP - General Family Medicine 04/21/23 documented as of this encounter
--- OUTSIDE RECORDS SUMMARY | 2025-02-02 13:58 | XMS_ITS | Encounter Summary ---
Author Organization [facility] Address [address] [facility] [place] [address] Care Team Providers Care Skilled Nursing Professional Name Role Phone Fady Tsang MD Primary Care Provider [phone] Encounter Details Date Type Department Care Team (Late Contact Info) Description 03/03/2024 Abstract [facility] BCP OB [address] [place] [phone] Pan Martínez DO [address] [place], [place] [phone] Social History Tobacco Use Types Packs/Day Years [...] SWS ALL [address] [facility] 360 [place] [address] Ruy Pimentel MD [address] [facility] 360 [place] [address] documented as of this encounter Visit Diagnoses Not on filedocumented in this encounter Care Teams Skilled Nursing Professional Relationship Specialty Start Date End Date Fady Tsang MD PCP - General Family Medicine 04/21/23 documented as of this encounter
--- OUTSIDE RECORDS SUMMARY | 2025-02-02 13:58 | XMS_ITS | Encounter Summary ---
Author Organization [facility] Address [address] [facility] [place] [address] Care Team Providers Care Fixed Income Analyst Name Role Phone Fady Tsang MD Primary Care Provider [phone] Encounter Details Date Type Department Care Team (Late Contact Info) Description 02/12/2024 Abstract [facility] BCP OB [address] [place] [address] Mirtha Linduqist LPN [address] [place] [address] Social History Tobacco Use Types [...] Office Visit [facility] SWS ALL [address] [facility] 360 [place] [address] Ruy Pimentel MD [address] [facility] 360 [place] [address] documented as of this encounter Visit Diagnoses Not on filedocumented in this encounter Care Teams Fixed Income Analyst Relationship Specialty Start Date End Date Fady Tsang MD PCP - General Family Medicine 04/21/23 documented as of this encounter
--- OUTSIDE RECORDS SUMMARY | 2025-02-02 13:58 | XMS_ITS | Encounter Summary ---
Author Organization [facility] Address [address] [facility] [place] [address] Care Team Providers Care Rubber Press Tender Name Role Phone Fady Tsang MD Primary Care Provider [phone] Encounter Details Date Type Department Care Team (Late Contact Info) Description 12/29/2023 Abstract [facility] BCP OB [address] [place] [phone] Mirtha Lindquist LPN [address] [place] [address] Social History Tobacco Use Types [...] Office Visit [facility] SWS ALL [address] [facility] 360 [place] [address] Ruy Pimentel MD [address] [facility] 360 [place] [address] documented as of this encounter Visit Diagnoses Not on filedocumented in this encounter Care Teams Rubber Press Tender Relationship Specialty Start Date End Date Fady Tsang MD PCP - General Family Medicine 04/21/23 documented as of this encounter
--- OUTSIDE RECORDS SUMMARY | 2025-02-02 13:58 | XMS_ITS | Encounter Summary ---
Author Organization [facility] Address [address] [place] [address] Care Team Providers Care Overhead Crane Inspector Name Role Phone Fady Tsang MD Primary Care Provider [phone] Encounter Details Date Type Department Care Team (Late Contact Info) Description 01/19/2025 Bamboo flowsheet [facility] ALL [address] [place] [address] Ruy Pimentel MD [facility] [address] [address] Social History Tobacco Use Types Packs/Day Years [...] Office Visit [facility] SWS ALL [address] [phone] Ruy Pimentel MD [facility] [address] [address] documented as of this encounter Visit Diagnoses Not on filedocumented in this encounter Care Teams Overhead Crane Inspector Relationship Specialty Start Date End Date Fady Tsang MD PCP - General Family Medicine 04/21/23 documented as of this encounter
--- OUTSIDE RECORDS SUMMARY | 2025-02-02 13:59 | XMS_ITS | Encounter Summary ---
Author Organization [facility] Address [address] [facility] [place] [address] Care Team Providers Care Corporate Recycling Manager Name Role Phone Fady Tsang MD Primary Care Provider [phone] Encounter Details Date Type Department Care Team (Late Contact Info) Description 07/13/2024 Abstract [facility] BCP OB [address] [place] [address] Pan Martínez DO [address] [place], [place] [address] Social History Tobacco Use Types Packs/Day Years [...] Office Visit [facility] SWS ALL [address] [facility] 360 [place] [address] Ruy Pimentel MD [address] [facility] 360 [place] [address] documented as of this encounter Visit Diagnoses Not on filedocumented in this encounter Care Teams Corporate Recycling Manager Relationship Specialty Start Date End Date Fady Tsang MD PCP - General Family Medicine 04/21/23 documented as of this encounter
--- OUTSIDE RECORDS SUMMARY | 2025-02-02 13:59 | XMS_ITS | Encounter Summary ---
Author Organization [facility] Address [address] [facility] [place] [address] Care Team Providers Care News Specialist Name Role Phone Fady Tsang MD Primary Care Provider [phone] Encounter Details Date Type Department Care Team (Late Contact Info) Description 03/04/2024 Abstract [facility] BCP OB [address] [place] [address] Pan Martínez DO [address] [place], [place] [phone] Social History Tobacco Use Types Packs/Day Years [...] Office Visit [facility] SWS ALL [address] [facility] 360 [place] [address] Ruy Pimentel MD [address] [facility] 360 [place] [address] documented as of this encounter Visit Diagnoses Not on filedocumented in this encounter Care Teams News Specialist Relationship Specialty Start Date End Date Fady Tsang MD PCP - General Family Medicine 04/21/23 documented as of this encounter
--- OUTSIDE RECORDS SUMMARY | 2025-02-02 13:59 | XMS_ITS | Encounter Summary ---
Author Organization [facility] Address [address] [address] Care Team Providers Care Asbestos Shingle Roofer Name Role Phone Fady Tsang MD Primary Care Provider [phone] Encounter Details Date Type Department Care Team (Late st Contact Info) Description 05/10/2024 Clinisync Result Encounter [facility] External Department Unsolicited Agata Meza, EDMOND [address] [place] [address] [place] [address] Social History Tobacco Use Types Packs/Day Years [...] [facility] SWS ALL [address] [facility] 360 [place] [phone] Ruy Pimentel MD [address] [place] [address] documented as of this encounter Procedures Procedure Name Priority Date/Time Associated Diagnosis Comments US OB GROWTH 05/10/2024 2:40 PM EDT documented in this encounter Results * US OB GROWTH (05/10/2024 2:40 PM EDT) Anatomical Region Laterality Modality Other 05/10/2024 2:40 PM EDT Narrative 05/10/2024 2:42 PM EDT [place] [id number] Ultrasound Report Signed Patient: LATHA STEEL MR#: [id number] : 2000 Acct:[id number] Age/Sex: 24 / F ADM Date: 05/10/24 Loc: [facility] Attending Dr: Agata Meza Ordering Physician: Agata Meza Date of Service: 05/10/24 Procedure(s): US OB growth Accession Number(s): [id number] cc: Agata Meza; Fady Tsang M.D. [address] [address] Patient Name: LATHA STEEL MRN: [id number] date: 2000 Sex: F Assigned Patient Location: [facility] Current Patient Location: [facility] Accession/Order Number: [id number] Exam Date: 05/10/2024 13:59 Report Date: 05/10/2024 [...] Signed By: 05/10/24 1442 DD/ 1440 TD/TT: Splunk Architect: Procedure Note Radiology, Radiologist, - 05/10/2024 [place] [address] Ultrasound Report Signed Patient: LATHA STEEL EMR#: [id number] : 2000Acct:[id number] Age/Sex: 24 / FADM Date: 05/10/24 Loc: [facility] Attending Dr: Agata Meza Ordering Physician: Agata Meza Date of Service: 05/10/24 Procedure(s): US OB growth Accession Number(s): [id number] cc: Agata Meza; Fady Tsang M.D. The [place] [address] Patient Name: LATHA STEEL MRN: [facility]:[id number] date: 2000 Sex: F Assigned Patient Location: [facility] Current Patient Location: [facility] Accession/Order Number: [id number] Exam Date: 05/10/2024 13:59 Report Date: 05/10/2024 [...] Alvarez M.D. Signed By:05/10/241441 DD/ 39 TD/TT: Splunk Architect: Agata PRUITT [facility] Final Result documented in this encounter Visit Diagnoses Not on filedocumented in this encounter Care Teams Asbestos Shingle Roofer Relationship Specialty Start Date End Date Fady Tsang MD PCP - General Family Medicine 04/21/23 documented as of this encounter
--- OUTSIDE RECORDS SUMMARY | 2025-02-02 13:59 | XMS_ITS | Encounter Summary ---
Author Organization [facility] Address [address] [facility] [place] [address] Care Team Providers Care Records And Information Manager Name Role Phone Fady Tsang MD Primary Care Provider [phone] Encounter Details Date Type Department Care Team (Late Contact Info) Description 06/22/2024 Abstract [facility] BCP OB [address] [place] [address] Pan Martínez DO [address] [place], [place] [phone] Social History Tobacco Use Types Packs/Day Years [...] Office Visit [facility] SWS ALL [address] [facility] 360 [place] [address] Ruy Pimentel MD [address] [facility] 360 [place] [address] documented as of this encounter Visit Diagnoses Not on filedocumented in this encounter Care Teams Records And Information Manager Relationship Specialty Start Date End Date Fady Tsang MD PCP - General Family Medicine 04/21/23 documented as of this encounter
--- OUTSIDE RECORDS SUMMARY | 2025-02-02 13:59 | XMS_ITS | Encounter Summary ---
Author Organization [facility] Address [address] [facility] [place] [address] Care Team Providers Care Supervisor Dairy Sanitation Name Role Phone Fady Tsang MD Primary Care Provider [phone] Encounter Details Date Type Department Care Team (Late Contact Info) Description 03/07/2024 Abstract [facility] BCP OB [address] [place] [phone] Pan Martínez DO [address] [place], [place] [phone] Social History Tobacco Use Types Packs/Day Years [...] Office Visit [facility] SWS ALL [address] [facility] 360 [place] [address] Ruy Pimentel MD [address] [facility] 360 [place] [address] documented as of this encounter Visit Diagnoses Not on filedocumented in this encounter Care Teams Supervisor Dairy Sanitation Relationship Specialty Start Date End Date Fady Tsang MD PCP - General Family Medicine 04/21/23 documented as of this encounter
--- OUTSIDE RECORDS SUMMARY | 2025-02-02 13:59 | XMS_ITS | Encounter Summary ---
Author Organization [facility] Address [address] [facility] [place] [address] Care Team Providers Care Nurseryperson Name Role Phone Fady Tsang MD Primary Care Provider [phone] Encounter Details Date Type Department Care Team (Late Contact Info) Description 07/19/2024 Abstract [facility] [address] [place] [phone] Pan Martínez DO [address] [place], [place] [id number] Social History Tobacco Use Types Packs/Day Years [...] Office Visit [facility] [address] [facility] [address] [place] [address] Ruy Pimentel MD [address] [facility] [address] [place] [address] documented as of this encounter Visit Diagnoses Not on filedocumented in this encounter Care Teams Nurseryperson Relationship Specialty Start Date End Date Fady Tsang MD PCP - General Family Medicine 04/21/23 documented as of this encounter
--- OUTSIDE RECORDS SUMMARY | 2025-02-02 13:59 | XMS_ITS | Encounter Summary ---
Author Organization [facility] Address [address] [facility] [place] [address] Care Team Providers Care Pressure Control Supervisor Name Role Phone Fady Tsang MD Primary Care Provider [phone] Encounter Details Date Type Department Care Team (Late Contact Info) Description 03/03/2024 Abstract [facility] [address] [place] [phone] Pan Martínez DO [address] [place], [place] [id number] Social History Tobacco Use Types Packs/Day Years [...] ALL [address] [facility] [address] [place] [address] Ruy Pimentel MD [address] [facility] [address] [place] [address] documented as of this encounter Visit Diagnoses Not on filedocumented in this encounter Care Teams Pressure Control Supervisor Relationship Specialty Start Date End Date Fady Tsang MD PCP - General Family Medicine 04/21/23 documented as of this encounter
--- OUTSIDE RECORDS SUMMARY | 2025-02-02 13:59 | XMS_ITS | Encounter Summary ---
Author Organization [facility] Address [address] [place] [address] Care Team Providers Care Code Enforcement Inspector Name Role Phone Fady Tsang MD Primary Care Provider [phone] Encounter Details Date Type Department Care Team (Late Contact Info) Description 04/20/2023 Abstract [facility] [address] [facility] [place] [phone] Agata Ross, PA [address] [facility] [address] [place], [place] [id number] Social History Tobacco Use Types Packs/Day Years [...] Upcoming Encounters Date Type Department Care Team ([facility] Contact Info) Description 03/27/2025 3:20 PM EDT Office Visit [facility] [address] [phone] Ruy Pimentel MD [address] [address] documented as of this encounter Visit Diagnoses Not on filedocumented in this encounter Care Teams Code Enforcement Inspector Relationship Specialty Start Date End Date Fady Tsang MD PCP - General Family Medicine 04/21/23 documented as of this encounter
--- OUTSIDE RECORDS SUMMARY | 2025-02-02 13:59 | XMS_ITS | Clinical Summary ---
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 Hypertrophy of tonsils with hypertrophy of adeno ids 11/19/2023 Pharyngitis 11/19/2023 UARS (upper airway resistance syndrome) 11/19/19 24 Encounters Date Type Department Care Team Description 02/01/2025 Telephone [facility] [address] [place] [address] Mirtha Lindquist LPN 01/19/2025 11:00 AM EDT Office Visit [facility] [address] [place] [phone] Ruy Pimentel MD Chronic idiopathic urticaria (Primary Dx) 01/19/2025 Bamboo flowsheet [facility] [address] [place] [phone] Ruy Pimentel MD 01/19/2025 Travel 01/13/2025 Travel 12/19/2024 Telephone [facility] [address] [place] [phone] Pan Martínez DO from Last 3 Months [...] - Inhaled Oxygen Concentration - - Weight 77.1 kg (170 lb) 01/19/2025 11:20 AM EDT Height 162.6 cm (5' 4 ) 04/21/2023 3:18 PM EDT Body Mass Index 29.18 04/21/2023 3:18 PM EDT Plan of Treatment Upcoming Encounters Date Type Department Care Team (Late st Contact Info) Description 03/27/2025 3:20 PM EDT Office Visit [facility] [address] [phone] Ruy Pimentel MD [address] [address] Insurance [facility] [employer] [place] Care Teams Optical Effects Line Up Person Relationship Specialty Start Date End Date Fady Tsang MD PCP - General Family Medicine 04/21/23
--- OUTSIDE RECORDS SUMMARY | 2025-02-02 13:59 | XMS_ITS | Encounter Summary ---
Author Organization [facility] Address [address] [facility] [place] [address] Care Team Providers Care Spanish Professor Name Role Phone Fady Tsang MD Primary Care Provider [phone] Encounter Details Date Type Department Care Team (Late Contact Info) Description 06/15/2024 Abstract [facility] [address] [place] [phone] Pan Martínez DO [address] [place], [place] [phone] Social History Tobacco Use Types Packs/Day Years [...] Office Visit [facility] [address] [facility] [address] [place] [address] Ruy Pimentel MD [address] [facility] [address] [place] [address] documented as of this encounter Visit Diagnoses Not on filedocumented in this encounter Care Teams Spanish Professor Relationship Specialty Start Date End Date Fady Tsang MD PCP - General Family Medicine 04/21/23 documented as of this encounter
== END 2025-02-02 13:55 | disposition home or self-care (01) ==
LOC: LAB 13:56
PROVIDERS: PCP Family Medicine; Visit Provider Obstetrics & Gynecology
DX: Z32.01 Encounter for pregnancy test, result positive (principal)
CPT/HCPCS: 36415; 84702

== ENCOUNTER 2025-03-09 15:51 | Outpatient (OUT) | payer BC, MEDICAID, SELFPAY ==
--- OUTSIDE RECORDS SUMMARY | 2024-09-03 10:00 | XMS_ITS ---
Author Organization The [facility] in [place] Address [address] [place] [address] Care Team Providers Care Lamination Inspector Name Role Phone Kentrell Tsang Primary Care Provider REASON FOR VISIT CT- LMTCBx3 Encounters Encounter Location Date Provider Diagnosis [facility] [address] [place] [address] 09/03/2024 Kentrell Tasng Plan Of Treatment No Information Progress Notes * Latha STEEL EDOB:[birth year] (24 yo F)Acc No.[id number]:09/03/2024 Patient: Loan MARTINLatha Cates :2000 A ge:24 Y S ex:Female Address:[address] [place] [address] * true * Date: Generated for Geovannyi dorys/Fasondrag/eTransmitting on: 0 03/09/2025 03:57 PM EDT
--- OUTSIDE RECORDS SUMMARY | 2024-12-16 10:15 | XMS_ITS ---
Author Organization [facility] in [place] Address [address] [place] [address] Care Team Providers Care Self Sealing Fuel Tank Builder Name Role Phone Sharan Kentrell Primary Care Provider [phone] Allergies No Known Allergies Reason For Referral Diagnosis 1 Hives (L50.9) Referral Organization [facility] Referring Provider First Name Kentrell Referring [...] 12/16/2024 Encounters Encounter Location Date Provider Diagnosis [facility] [address] [place] [address] 12/16/2024 Kentrell Brendeny Gastroenteritis K52. 9 and [...] East back into eating by eating bland, ipvi-ns-xukqne foods like crackers, toast, gelatin, bananas, rice and chicken. Try to avoid foods/substances including dairy products, caffeine, alcohol, nicotine and fatty or highly seasoned foods. Medications such as ibuprofen or tylenol can make your stomach more upset, so use sparingly if at all. Also avoid uunn-gsi-agvoabx anti-diarrheal medications because it can make it [...] East back into eating by eating bland, dthj-ap-tksgun foods like crackers, toast, gelatin, bananas, rice and chicken. Try to avoid foods/substances including dairy products, caffeine, alcohol, nicotine and fatty or highly seasoned foods. Medications such as ibuprofen or tylenol can make your stomach more upset, so use sparingly if at all. Also avoid fear-yon-kzdbqav anti-diarrheal medications because it can make it harder for your body to eliminate the virus. 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
--- OUTSIDE RECORDS SUMMARY | 2025-03-09 15:57 | XMS_ITS | Patient Health Record ---
Author Organization The [facility] in [place] Address [address] [place] [address] Care Team Providers Care Crochet Machine Operator Name Role Phone Kentrell Tsang Primary Care Provider [phone] Allergies No Known Allergies Results Component Value Reference Range Notes CT cervical spine wo con Reviewed date:09/03/2024 02:00:54 PM Interpretation: Performing Lab: Notes/Report: Source Facility: [place] [address] CT Scan Report Signed Patient: LATHA STEEL MR#: [id number] : 2000 Acct:[id number] Age/Sex: 24 / F ADM Date: 09/02/24 Loc: CT Attending Dr: Jesus Tsang M.D. Ordering Physician: Jesus Tsang M.D. Date of Service: 09/02/24 Procedure(s): CT cervical spine wo con Accession Number(s): [id number] cc: Jesus Tsang M.D. [place] [address] Patient Name: LATHA STEEL MRN: [id number] date: 2000 Sex: F Assigned Patient Location: CT Current Patient Location: CT Accession/Order Number: [id number] Exam Date: 09/02/2024 08:43 Report Date: 09/02/2024 [...] M.D. Signed By: 09/02/241818 DD/ 15 TD/TT: Photographer: [place] [address] CT Scan Report Signed Patient: NERIS STEEL MR#: [id number] : 2000 Acct:[id number] Age/Sex: 24 / F ADM Date: 09/02/24 Loc: CT Attending Dr: Max Tsang M.D. Ordering Physician: Jesus Tsang M.D. Date of Service: 09/02/24 Procedure(s): CT cer vical spine wo con Accession Number(s): [id number] cc: Jesus Tsang M.D. [place] [address] Patient Name: LATHA STEEL MRN: [id number] date: 2000 Sex: F Assigned Patient Location: CT Current Patient Loca tion: CT Accession/Order Numb er: [id number] Exam Date: 09/02/2024 08:43 Report Date: 09/02/2024 [...] M.D. Signed By: 09/02/241818 DD/ 15 TD/TT: Photographer: AFP, Serum, Open Spina Bifid a Reviewed date:03/16/2024 09:15:23 AM Interpretation: Performing Lab: Notes/Report: N N LMP [id number] 1 17 N 1 Y 171 N [...] 1 IN 6704 . Interpretation Comment . Interpretation: Screen Negative This result is screen negative for [...] Customer Services to discuss available options. The [employer] recommends amniocentesis be offered to women age 35 and older. Comment: Comment . Josephine Ortiz, Ph.D., [facility] Director References: Available Upon Request. Multiples Of Median Cutoffs For AFP Elevations Blanca 2.5 Black 2.8 IDD 2.0 Twins 4.5 Abbreviation Definitions IDD - Insulin Dep Diabetes OSBR - Open Spina Bifida Risk For further inquiries contact [facility] at [phone]. This test was developed and its performance characteristics determined by [employer]. It has not been cleared or approved by the Food and Drug Administration. Performed at: - [facility] [address] [place], [place] [id number] Application Development Liaison: Ginna Hawley [facility], Phone: [phone] Performing Lab: see note - [facility] LB CBC AUTO DIFF Reviewed date:04/08/2024 12:56:06 PM Interpretation: Performing Lab: Notes/Report: [facility] , White Blood Count 9.4 4.0-11.0 10 [...] Performing Lab: see note ML - [facility] LB Glucose 1 Hour Reviewed date:04/08/2024 04:05:07 PM Interpretation: Performing Lab: Notes/Report: [facility] , Glucose 1 Hour 121 <130 mg/dL Performing Lab: see note - [facility] LB US OB growth Reviewed date:05/10/2024 04:10:50 PM Interpretation: Performing Lab: Notes/Report: Source Facility: [place] [address] [place] [address] Ultrasound Report Signed Patient: LATHA STEEL MR#: [id number] : 2000 Acct:[id number] Age/Sex: 24 / F ADM Date: 05/10/24 Loc: [facility] Attending Dr: Agata Meza Ordering Physician: Agata Meza Date of Service: 05/10/24 Procedure(s): US OB growth Accession Number(s): [id number] cc: Agata Meza; Jesus Tsang M.D. [place] [address] Patient Name: LATHA STEEL MRN: [id number] date: 2000 Sex: F Assigned Patient Location: [facility] Current Patient Location: [facility] Accession/Order Number: [id number] Exam Date: 05/10/2024 13:59 Report Date: 05/10/2024 [...] M.D. Signed By: 05/10/241441 DD/ 39 TD/TT: Photographer: [place] [address] Ultrasound Report Signed Patient: NERIS STEEL MR#: [id number] : 2000 Acct:[id number] Age/Sex: 24 / F ADM Date: 05/10/24 Loc: [facility] Attending Dr: Agata Meza Ordering Physician: Agata Meza Date of Service: 05/10/24 Procedure(s): US OB growth Accession Number(s): [id number] cc: Agata Meza; Jesus Tsagn M.D. [address] [address] Patient Name: LATHA STEEL MRN: [id number] date: 2000 Sex: F Assigned Patient Location: [facility] Current Patient Loca tion: [facility] Accession/Order Numb er: [id number] Exam Date: 13:59 Report Date: 05/10/2024 14:40 [...] 31 weeks DEN by US: 2024-07-12 U S/US OB growth IMPRESSION: Normal interval growth Electronically authenticated by: JULISA ALVAREZ Date: 05/10/2024 14:40 Dictated By: Jamir Alvarez M.D. Signed By: 05/10/241441 DD/ 39 TD/TT: Photographer: Strep [facility] Reviewed date:06/26/2024 06:09:25 PM Interpretation: Performing Lab: Notes/Report: [facility] , Strep Gp B LALITO See Below For Report Strep Gp B [facility] Strep Gp [facility] Negative Strep Gp B LAL[facility]O Strep Gp B [facility] Centers for Disease Control and Prevention (CDC) and Strep Gp B LALITO Strep Gp B LALITO [employer] Strep Gp [...] LALITO Strep Gp B [facility]AL[facility]O Performed at: - [facility] Strep Gp B L[facility] Strep Gp B [facility] [address] [place], [place] [id number] Strep Gp B LAL[facility]O Strep [facility]p [facility] Application Development Liaison: Kane Ibarra PhD, Phone: [phone] Strep Gp B [facility]O Performing Lab: see note - [facility] LB SEE REPORT - Trucker Hand Id information not found for OBX-specific model maker plastic legend DRUG SCREEN RAPID (URINE) Reviewed date:07/11/2024 09:27:27 PM Interpretation: Performing Lab: Notes/Report: [facility] , Cannabinoid Screen Urine NEGATIVE NEGATIVE Phencyclidine Screen Urine NEGATIVE NEGATIVE Cocaine Screen Urine NEGATIVE NEGATIVE Methamphetamines Screen Urine NEGATIVE NEGATIVE Opiate Screen Urine NEGATIVE NEGATIVE Amphetamine Screen Urine NEGATIVE NEGATIVE Benzodiazepines Screen Urine NEGATIVE NEGATIVE Tricyclic Antidepressant Urine NEGATIVE NEGATIVE Methadone Screen Urine NEGATIVE NEGATIVE Barbiturates Screen Urine NEGATIVE NEGATIVE Oxycodone Screen Urine NEGATIVE NEGATIVE Buprenorphine Screen Urine NEGATIVE NEGATIVE DRUG CLASS TEST SYSTEM CUT-OFF CONCENTRATIONS ARE FOLLOWS: AMP (Amphetamine): 500 ng/mL BAR (Barbiturates): 200 ng/mL BZO (Benzodiazepines): 150 ng/mL BUP (Buprenorphine): 10 ng/mL NAA (Cocaine): 150 ng/mL mAMP (Methamphetamine): 500 ng/mL MTD (Methadone): 200 ng/mL OPI (Opiates): 100 ng/mL OXY (Oxycodone): 100 ng/mL PCP (Phencyclidine): 25 ng/mL THC (Cannabinoids): 50 ng/mL TCA (Trycyclic Antidepressants): 300 ng/mL Performing Lab: see note ML - [facility] LB CBC no Diff (Hemogram) Reviewed date:07/11/2024 09:27:08 PM Interpretation: Performing Lab: Notes/Report: [facility] , White Blood Count 13.1 4.0-11.0 10 [...] fL Performing Lab: see note ML - [facility] LB Type and Screen Reviewed date:07/12/2024 10:03:03 AM Interpretation: Performing Lab: Notes/Report: [facility] , Blood Type O Positive Antibody Screen NEGATIVE CBC AUTO DIFF Reviewed date:07/14/2024 05:56:16 PM Interpretation: Performing Lab: Notes/Report: [facility] , White Blood Count 24.5 4.0-11.0 10 [...] 11.5 9.5-13.5 fL Performing Lab: see note ML - [facility] LB Manual Differential Reviewed date:07/14/2024 05:56:16 PM Interpretation: Performing Lab: Notes/Report: [facility] , Segmented Neutrophils % Manual 82.0 43.0-75.0 [...] 0 3/uL Performing Lab: see note - [facility] LB Box Test Reviewed date:07/14/2024 05:56:16 PM Interpretation: Performing Lab: Notes/Report: RADHA NOVAK- TO [facility] , BOX Test Sent Out RADHA NOVAK BOX Test Reference Lab [facility] BOX Test Date Sent 07/13/24 BOX Test Result SEE SCANNED REPORT Performing Lab: see note - [facility] LB CBC AUTO DIFF Reviewed date:08/01/2024 07:51:30 AM Interpretation: Performing Lab: Notes/Report: [facility] , White Blood Count 9.4 4.0-11.0 [...] Performing Lab: see note ML - [facility] LB INFLUENZA A AND B AG Reviewed date:08/01/2024 07:51:30 AM Interpretation: Performing Lab: Notes/Report: [facility] , Influenza Virus A Antigen Negative Negative for Flu A protein antigen. Infection due to Flu A cannot be ruled out. Flu A antigen in the sample may be below the detection limit of the test. Influenza Virus B Antigen Negative Negative for Flu B protein antigen. Infection due to Flu B cannot be ruled out. Flu B antigen in the sample may be below the detection limit of the test. Performing Lab: see note ML - [facility] PROF 14(COMP METB) Reviewed date:08/01/2024 07:51:30 AM Interpretation: Performing Lab: Notes/Report: [facility] , Sodium 141 136-145 mmol/L Potassium 3.7 [...] 0.9 Performing Lab: see note ML - [facility] LB PTT Reviewed date:08/01/2024 07:51:30 AM Interpretation: Performing Lab: Notes/Report: [facility] , Partial Thromboplastin Time 30.1 22.3-36.2 sec Performing Lab: see note ML - [facility] LB UA RANDOM W or MICROSCOPIC Reviewed date:08/01/2024 07:51:30 AM Interpretation: Performing Lab: Notes/Report: [facility] , Color Urine LT. YELLOW YELLOW Clarity Urine CLEAR CLEAR Specific [place] Urine 1.025 1.005-1.025 pH Urine 6.0 5.0-9.0 [...] NO Performing Lab: see note ML - [facility] LB Prothrombin Time INR Reviewed date:08/01/2024 07:51:30 AM Interpretation: Performing Lab: Notes/Report: [facility] , Prothrombin Time 10.6 9.0-11.6 sec INR 1.00 DESIRED INR: 2.0-3.0 CONDITIONS NOT LISTED BELOW 2.5-3.5 FOR PROSTHETIC HEART VALVE REPLACEMENT 2.5-3.5 RECURRENT THROMBOSIS Performing Lab: see note ML - [facility] LB SARS-CoV-2 Ag* Reviewed date:08/01/2024 07:51:30 AM Interpretation: Performing Lab: Notes/Report: [facility] , SARS-CoV-2 Ag NEGATIVE NEGATIVE This test has not been FDA cleared or approved, but has been authorized by the FDA under an Emergency Use Authorization (EUA) for use by authorized laboratories certified under CLIA that meet the requirements to perform moderate or high complexity testing. This test has been authorized only for the detection of proteins from SARS-CoV-2, not for any other viruses or pathogens. The emergency use of this test is authorized for the duration of the declaration that circumstances exist justifying the authorization of emergency use of in vitro diagnostic tests for detection and/or diagnosis of Covid-19 under section 564(b)(1) of the Act, 21 U.S.C. 360bbb-3(b)(1), unless the declaration is terminated or authorization is revoked sooner. Performing Lab: see note ML - [facility] LB CT head/brain wo con Reviewed date:09/03/2024 02:00:54 PM Interpretation: Performing Lab: Notes/Report: Source Facility: [place] [address] [place] [address] CT Scan Report Signed Patient: LATHA STEEL MR#: [id number] : 2000 Acct:[id number] Age/Sex: 24 / F ADM Date: 09/02/24 Loc: CT Attending Dr: Jesus Tsang M.D. Ordering Physician: Jesus Tsang M.D. Date of Service: 09/02/24 Procedure(s): CT head/brain wo con Accession Number(s): [id number] cc: Jesus Tsang M.D. [place] [address] Patient Name: LATHA STEEL MRN: [id number] date: 2000 Sex: F Assigned Patient Location: CT Current Patient Location: CT Accession/Order Number: [id number] Exam Date: 09/02/2024 08:43 Report Date: 09/02/2024 [...] M.D. Signed By: 09/02/241822 DD/ 19 TD/TT: Photographer: [place] [address] CT Scan Report Signed Patient: NERIS STEEL MR#: [id number] : 2000 Acct:[id number] Age/Sex: 24 / F ADM Date: 09/02/24 Loc: CT Attending Dr: Max Tsang M.D. Ordering Physician: Jesus Tsang M.D. Date of Service: 09/02/24 Procedure(s): CT head/brain wo con Accession Number(s): [id number] cc: Jesus Tsang M.D. [place] [address] Patient Name: LATHA STEEL MRN: [id number] date: 2000 Sex: F Assigned Patient Location: CT Current Patient Loca tion: CT Accession/Order Numb er: [id number] Exam Date: 09/02/2024 08:43 Report Date: 09/02/2024 [...] M.D. Signed By: 09/02/241822 DD/ 19 TD/TT: Photographer: CBC AUTO DIFF Reviewed date:10/30/2024 03:40:05 PM Interpretation: Performing Lab: Notes/Report: [facility] , White Blood Count 9.5 4.0-11.0 10 [...] Performing Lab: see note ML - [facility] LB LIPASE Reviewed date:10/30/2024 04:13:26 PM Interpretation: Performing Lab: Notes/Report: [facility] , Lipase 29.0 16.0-77.0 U/L Performing Lab: see note - [facility] LB PROF 14(COMP METB) Reviewed date:10/30/2024 04:13:26 PM Interpretation: Performing Lab: Notes/Report: [facility] , Sodium 139 136-145 mmol/L Potassium 3.2 [...] 1.4 Performing Lab: see note ML - [facility] LB HCG Qualitative* Reviewed date:10/30/2024 04:13:26 PM Interpretation: Performing Lab: Notes/Report: [facility] , HCG Qualitative NEGATIVE NEGATIVE Performing Lab: see note ML - [facility] LB UA Micro, reflex to culture Reviewed date:10/30/2024 06:15:52 PM Interpretation: Performing Lab: Notes/Report: [facility] , Color Urine LT. YELLOW YELLOW Clarity Urine CLEAR CLEAR Specific [place] Urine 1.020 1.005-1.025 pH Urine 6.0 5.0-9.0 [...] Performing Lab: see note ML - [facility] LB ECG 12 lead Reviewed date:10/31/2024 08:27:43 PM Interpretation: Performing Lab: Notes/Report: Source Facility: [facility] [place] [address] [place] [address] Electrocardiograph Report Signed Patient: LATHA STEEL MR#: [id number] : 2000 Acct:[id number] Age/Sex: 24 / F ADM Date: 10/30/24 Loc: ER Attending Dr: Ordering Physician: Memo Lynch Date of Service: 10/30/24 Procedure(s): ECG 12 lead Accession Number(s): [id number] cc: [facility] Test Date: 2024-10-30 Pat Name: LATHA STEEL Department: Room: - Gender: Female Telecommunications Equipment Installer: : 2000 Requested By: [id number] Order Number: [id number] Reading MD: ANNA LI M.D. Measurements Intervals [place] Rate: 77 P: 33 IN: 164 QRS: 18 QRSD: 104 T: 41 QT: 382 QTc: 413 Interpretive Statements 1100 Sinus rhythm 2440 Incomplete right bundle branch block 9130 borderline ECG Compared to ECG 10/20/2023 12:22:15 No significant changes Electronically Signed On 10-31-2024 7:36:14 EDT by ANNA LI M.D. Dictated By: ANNA LI Signed By: 10/31/24 0736 DD/ 1507 TD/TT: Photographer: [place] [address] Electrocardiograph Report Signed Patient: NERIS STEEL MR#: [id number] : 2000 Acct:[id number] Age/Sex: 24 / F ADM Date: 10/30/24 Loc: ER Attending Dr: Ordering Physician: Memo Lynch Date of Service: 10/30/24 Procedure(s): ECG 12 lead Accession Number(s): [id number] cc: [facility] Test Date: 2024-10-30 Pat Name: LATHA SAENZ Department: 64 Room: - Gender: Female Telecommunications Equipment Installer: : 2000 Kody pruitt By: [id number] Order Number: [id number] Reading MD: ANNA LI M.D. Measurements Intervals [place] Rate: 77 P: 33 IN: 164 QRS: 18 QRSD: 104 T: 41 QT: 382 QTc: 413 Interpretive Statements 1100 Sinus rhythm 2440 Incomplete righ t bundle branch block 9130 borderline ECG Compared to ECG 10/20/2023 12:22:15 No significant changes Electronically Sherrell d On 10-31-2024 7:36:14 EDT by ANNA LI M.D. Dictated By: ANNA LI Signed By: 10/31/24 0736 DD/ 1507 TD/TT: Photographer: CBC AUTO DIFF Reviewed date:12/27/2024 09:21:45 PM Interpretation: Performing Lab: Notes/Report: [facility] , White Blood Count 8.3 4.0-11.0 10 3/uL Red Blood Count 4.59 4.20-5.40 10 6/uL Hemoglobin 13.3 12.0-16.0 g/dL Hematocrit 38.7 36.0-48.0 % Mean Corpuscular Volume 84.3 81.0-99.0 fL Mean Corpuscular Hemoglobin 29.0 26.7-34.0 pg Mean Corpuscular HGB Conc 34.4 29.9-35.2 g/dL Red Cell Distribution Width 13.0 11.0-15.0 % Platelet Count 317 150-450 10 3/uL Mean Platelet Volume 11.3 9.5-13.5 fL Neutrophils Percent Auto 67.2 43.0-75.0 % Lymphocytes Percent Auto 25.8 20.5-60.0 % Monocytes Percent Auto 5.7 1.7-12.0 % Eosinophils Percent Auto 0.4 0.9-7.0 % Basophils Percent Auto 0.7 0.2-2.0 % Immature Granulocytes Pct Auto 0.2 0.0-0.5 % Neutrophils Absolute Auto 5.6 1.4-6.5 10 3/uL Lymphocytes Absolute Auto 2.1 1.2-3.8 10 3/uL Monocytes Absolute Auto 0.5 0.3-0.8 10 3/uL Eosinophils Absolute Auto 0.0 0.0-0.7 10 3/uL Basophils Absolute Auto 0.1 0.0-0.1 10 3/uL Immature Granulocytes Abs Auto 0.02 0.00-0.03 10 3/uL Performing Lab: see note - [facility] LB PROF 14(COMP METB) Reviewed date:12/27/2024 09:21:45 PM Interpretation: Performing Lab: Notes/Report: [facility] , Sodium 142 136-145 mmol/L Potassium 4.0 3.5-5.1 mmol/L Chloride 105 98-107 mmol/L Carbon Dioxide 25.7 21.0-32.0 mmol/L Anion Gap 15.3 Glucose 98 74-106 mg/dL Blood Urea Nitrogen 14.0 7.0-18.0 mg/dL Creatinine 0.81 0.55-1.02 mg/dL Estimated GFR ( [place] >60 >=60 mL/min/1.73m 2 Estimated GFR (Non- Deborah >60 >=60 mL/min/1.73m 2 BUN Creatinine Ratio 17.3 Calcium 9.6 8.5-10.1 mg/dL Bilirubin Total 0.3 0.2-1.0 mg/dL Aspartate Amino Transferase 13 15-37 U/L Alanine Aminotransferase 18 14-59 U/L Alkaline Phosphatase 82 46-116 U/L Total Protein 7.8 6.4-8.2 g/dL Albumin Level 4.0 3.4-5.0 g/dL Globulin 3.8 Albumin Globulin Ratio 1.1 Performing Lab: see note ML - [facility] STREPT SCREEN Reviewed date:12/27/2024 09:21:45 PM Interpretation: Performing Lab: Notes/Report: [facility] , Strep A Antigen Screen Negative Performing Lab: see note - [facility] TSH Reviewed date:12/27/2024 09:21:45 PM Interpretation: Performing Lab: Notes/Report: [facility] , Thyroid Stimulating Hormone 2.003 0.358-3.740 uIU/mL Performing Lab: see note - [facility] LB TSH W/ REFLEX FT4 Reviewed date:12/27/2024 09:21:45 PM Interpretation: Performing Lab: Notes/Report: [facility] , TSH W/ REFLEX FT4 2.003 0.358-3.740 uIU/mL Performing Lab: see note - [facility] LB Upper Respiratory Culture Reviewed date:01/01/2025 12:19:59 PM Interpretation: Performing Lab: Notes/Report: [facility] , Upper Respiratory Culture See Below For Report Upper Respiratory Culture Upper Respiratory Culture Routine respiratory hubert Upper Respiratory Culture Upper Respiratory Culture Performed at: [facility] Upper Respiratory Culture Upper Respiratory Culture [address] [place] [id number] Upper Respiratory Culture Upper Respiratory Culture Application Development Liaison: Samson Ibarra PhD, Phone: [phone] Upper Respiratory Culture Performing Lab: see note - [facility] LB SEE REPORT - Trucker Hand Id information not found for OBX-specific model maker plastic legend ECG 12 lead Reviewed date:12/28/2024 12:51:24 PM Interpretation: Performing Lab: Notes/Report: Source Facility: [place] [address] Electrocardiograph Report Signed Patient: LATHA STEEL MR#: [id number] : 2000 Acct:[id number] Age/Sex: 24 / F ADM Date: 12/27/24 Loc: ER Attending Dr: Ordering Physician: Agata Meza Date of Service: 12/27/24 Procedure(s): ECG 12 lead Accession Number(s): [id number] cc: [facility] Test Date: 2024-12-27 Pat Name: LATHA STEEL Department: Room: - Gender: Female Telecommunications Equipment Installer: : 2000 Requested By: [id number] Order Number: [id number] Melinda MD: ANNA LI M.D. Measurements Intervals [place] Rate: 77 P: 48 IN: 172 QRS: 37 QRSD: 102 T: 49 QT: 356 QTc: 388 Interpretive Statements 1100 Sinus rhythm 2420 RSR (QR) in lead V1/V2, consistent with right ventricular conduction delay 9130 borderline ECG Compared to ECG 10/30/2024 15:07:52 No significant changes Electronically Signed On 12-27-2024 21:45:34 EDT by ANNA LI M.D. Dictated By: ANNA LI Signed By: 12/27/242144 DD/ 48 TD/TT: Photographer: [place] [address] Electrocardiograph Report Signed Patient: NERIS STEEL ON E MR#: [id number] : 2000 Acct:[id number] Age/Sex: 24 / F ADM Date: 12/27/24 Loc: ER Attending Dr: Ordering Physician: Agata Meza Date of Service: 12/27/24 Procedure(s): ECG 12 lead Accession Number(s): [id number] cc: [facility] Test Date: 2024-12-27 Pat Name: LATHA SAENZ Department: 64 Room: - Gender: Female Telecommunications Equipment Installer: : 2000 Requ ested By: [id number] Order Number: [id number] Reading MD: ANNA LI M.D. Measurements Intervals [place] Rate: 77 P: 48 IN: 172 QRS: 37 QRSD: 102 T: 49 QT: 356 QTc: 388 Interpretive Statements 1100 Sinus rhythm 2420 RSR (QR) in belen d V1/V2, consistent with right ventricular conduction delay 9130 borderline ECG Compared to ECG 10/30/2024 15:07:52 No significant changes Electronically Sherrell d On 12-27-2024 21:45:34 EDT by ANNA LI M.D. Dictated By: ANNA LI Signed By: 12/27/242144 DD/ 48 TD/TT: Photographer: NIGEL GRANT Reviewed date:02/02/2025 05:11:57 PM Interpretation: Performing Lab: Notes/Report: [facility] Quantitative 176 5-50 0.2-1 WEEK 50-500 1-2 WEEKS 100-5,000 2-3 WEEKS 500-10,000 3-4 WEEKS 1,000-50,000 4-5 WEEKS 10,000-100,000 5-6 WEEKS 15,000-200,000 6-8 WEEKS 10,000-100,000 2-3 MONTHS Performing Lab: see note ML - [facility] LB Reason For Referral Diagnosis 1 Hives (L50.9) Referral Organization [facility] Referring Provider First Name Kentrell Referring Provider Last Name Sharan Referring Provider Speciality [facility] kristy Referred Provider Ruy Pimentel Referred Provider [...] W/U Status Risk Notes Problem Acute gastritis (40127049) Acute gastritis without bleeding (K29.00) Active confirmed Problem Inflammatory dermatosis (181976849) Other specified dermatitis (L30.8) Active confirmed Problem Acne vulgaris (67556705) Acne vulgaris (L70.0) Active confirmed Problem Acne (38841551) Acne, unspecifie d (L70.9) Active confirmed Problem Sebaceous cyst (692069580) Sebaceous cyst (L72.3) Active confirmed Problem Chondromalacia of patella (40298288) Chondromalacia patellae, 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 confirmed Problem Lumbar radiculopathy (617354883) Radiculopathy, lumbar region (M54.16) Active confirmed Problem Epistaxis (962049895) Epistaxis (R04.0) Active confirmed Problem Headache (05547458) Headache (R51) Active confirmed Problem Chest pain (84953937) Chest pain (R07.9) Active confirmed Problem Fatigue (64476921) Fatigue (R53.83) Active confirmed Problem Cervical radiculopathy (37525541) Cervical radiculopathy (M54.12) Active confirmed Problem Hypothyroid (07551654) Hypothyroid (E03.9) Active confirmed Problem Eczema (60793918) Eczema (L30.9) Active confirm ed Problem Syncope (517786838) Syncope (R55) Active confirmed Problem Acute sinusitis (25887697) Acute sinusitis (J01.90) Active confirmed Problem Allergic rhinitis (99377841) Allergic rhinitis (J30.9) Active confirmed Problem Radial styloid tenosynovitis (47068599) De Quervain's tenosynovitis (M65.4) Active confirmed Problem Pain in thoracic spine (325822292) Bilateral thoracic back pain (M54.6) Active confirmed Problem Syncope and collapse (998695691) Syncopal episodes (R55) Active confirmed Problem Nosebleed (797038219) Nosebleed (R04.0) Active confirmed Problem Acute infective polyneuritis (602103045) 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 confirmed Problem Derangement of knee (89905393) Internal derangement of knee, right (M23.91) Active confirmed Problem Bloody diarrhea (86466740) Bloody diarrhea (R19.7) Active confirmed Problem Hyperplasia of tonsils (97843960) Hyperplasia of tonsils (J35.1) Active confirmed Problem Meralgia paresthetica (59598360) Meralgia paresthetica, bilateral lower limbs (G57.13) Active confirmed Problem Cyst of meniscus of right knee (355948920820288) Cyst of meniscus of right knee (M23.006) Active confirmed Problem Postural orthostatic tachycardia syndrome (disorder) (237355608) POTS (postural orthostatic tachycardia syndrome) (I49.8) Active confirmed Problem Disease caused by Severe acute respiratory syndrome coronavirus 2 (disorder) (255295896) COVID-19 virus infection (U07.1) Active confirmed Vital Signs Heart Rate 96 /min 04/20/2024 Temperature 97.4 degrees Fahrenheit 04/20/2024 Oximetry 99 % 04/20/2024 Blood pressure diastolic 72 mm Hg 12/16/2024 Height 64 in 12/16/2024 Blood pressure systolic 116 mm Hg 12/16/2024 Weight 161 lbs 12/16/2024 BMI 27.63 kg/m2 12/16/2024 Encounters Encounter Location Date Provider Diagnosis [address] [address] 09/03/2024 Kentrell Wilcoxy [facility] [address] [place] [address] 08/01/2024 Kentrell y [facility] [address] [place] [address] 04/20/2024 Kentrell Hoy Acute non-recurrent sinusitis, unspecified location J01.90 and Nasal congestion R09.[address] [address] 08/19/2024 Kentrell Hoy Headache R51 and Cer vical radiculopathy M54.[address] [address] 12/16/2024 Kentrell Hoy Gastroenteritis K52. 9 and Hives L50.9 Assessments Encounter Date Diagnosis (ICD Code) Assessment Notes Treatment Notes Treatment Clinical Notes Section Notes 04/20/2024 Acute non-recurrent sinusitis, unspecified location (ICD-10 - J01.90) Rest and drink more liquids, especially water. You may use a humidifier or vaporizer to help keep the drainage moist. Godz-cun-azacxrc Nasal Saline may help the stuffy and runny nose. Use Ibuprofen and or Tylenol as needed for fever, chills, body aches or pain. Children 5 years old should not be given gsfq-bpm-dlokrnk cough and cold medications such as guaifenesin and dextromethorphan. If you're over age 5, you may try rfmd-ats-qwwnbnu cold medications such as guaifenesin and dextromethorphan, [...] 08/19/2024 Cervical radiculopathy (ICD-10 - M54.12) 12/16/2024 Gastroenteritis (ICD-10 - K52.9) Get plenty of rest. Stay hydrated by sucking on ice chips or taking small sips of water. You can also try drinking clear soda, clear broths or noncaffeinated sports drinks. Stop eating solid foods for a few hours to let your stomach settle. East back into eating by eating bland, froq-pc-fjggwr foods like crackers, toast, gelatin, bananas, rice and chicken. Try to avoid foods/substances including dairy products, caffeine, alcohol, nicotine and fatty or highly seasoned foods. Medications such as ibuprofen or tylenol can make your stomach more upset, so use sparingly if at all. Also avoid uvjj-yde-obphziv anti-diarrheal medications because it can make it harder for your body to eliminate the virus. 12/16/2024 Hives (ICD-10 - L50.9) 04/20/2024 Nasal congestion (ICD-10 - R09.81) Plan Of Treatment Pending Test Test Name Order Date CMP (COMPLETE METABOLIC PANEL) HEMOGLOBIN A1C (GLYCO) 09/03/2023 IRON, TOTAL 09/03/2023 [...] Insured Coverage Start Date Coverage End Date [employer] [address] [place] [address] [id number] Job Keith Child 3 [employer] [place] [employer] [address] [address] [place] [phone] [id number] Latha Steel Self - patient is the insured 4 Medical (General) History Medical History History ICD Code Acne, unspecified L70.9 Radiculopathy, lumbar region M54.16 Other specified dermatitis L30.8 Chondromalacia patellae, 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
[2025-03-09 16:37] LABS: Hematocrit 39.1 % (36.0-48.0); Hemoglobin 13.5 g/dL (12.0-16.0); Immature Granulocytes Abs Auto 0.02 10^3/uL (0.00-0.03); Immature Granulocytes Pct Auto 0.2 % (0.0-0.5); Lymphocytes Absolute Auto 2.6 10^3/uL (1.2-3.8); Mean Corpuscular HGB Conc 34.5 g/dL (29.9-35.2); Mean Corpuscular Hemoglobin 29.4 pg (26.7-34.0); Mean Corpuscular Volume 85.2 fL (81.0-99.0); Platelet Count 288 10^3/uL (150-450); Red Blood Count 4.59 10^6/uL (4.20-5.40); White Blood Count 10.1 10^3/uL (4.0-11.0)
--- OUTSIDE RECORDS SUMMARY | 2025-03-09 17:07 | XMS_ITS | CCD ---
Author Organization [facility] Care Team Providers Care Marketing Communications Specialist Name Role Phone MARKER ., DR STINSON [...] Unavailable Jesus Tsang MD Primary Care Provider Roosevelt Martínez Attending Unavailable Bladimir Martínezy Admitting Unavailable Jesus Tsang Primary Care Unavailable MauricioBladimir gonsalezy Attending Unavailable Roosevelt Martínez Admitting Unavailable Jesus Tsang MD Primary Care Provider [phone] ROOSEVELT MARTÍNEZ Attending Unavailable ADAN PIMENTEL Attending Unavailable SUSANA, AGATA Attending Unavailable MAURICIO, ROOSEVELT Attending Unavailable SUSANA, AGATA Attending Unavailable SUSANA, AGATA Attending Unavailable MAURICIO, ROOSEVELT Attending Unavailable SUSANA, AGATA Attending Unavailable SUSANA, AGATA Attending Unavailable MAURICIO, ROOSEVELT Attending Unavailable MAURICIO, ROOSEVELT Attending Unavailable MAURICIO, ROOSEVELT Attending Unavailable MAURICIO, ROOSEVELT Attending Unavailable SUSAAN, AGATA Attending Unavailable Medications Current Medications Medication Drug Class(es) Dates Sig (Normalized) Sig (Original) MV-Min-Fe Fum-FA-DHA ( 1 PO) (2 sources) MV-Min- Fe Fum-FA-DHA ( 1 PO) Take 1 tablet by mouth Daily Active Completed/Discontinued Medications Medication Drug Class(es) Dates Sig [...] Translations: [Chronic tonsillitis and adenoiditis] Onset: 11-19-2023 Resolved: 02-27-2025 11-19-2023 Chronic Allergic reactions (2 sources) Chronic idiopathic urticaria; Translations: [Idiopathic urticaria] 01-19-2025 Episodic Cardiac dysrhythmias (4 sources) Palpitations; Translations: [PALPITATIONS] Onset: 12-04-2022 Episodic Deficiency and other anemia (1 source) Anemia, unspecified; Translations: [ANEMIA UNSPECIFIED] Onset: 09-22-2022 Episodic Diabetes mellitus without complication (1 source) Other abnormal glucose; Translations: [OTHER ABNORMAL GLUCOSE] Onset: 03-06-2023 Episodic Menstrual disorders (1 source) Missed period; Translations: [Irregular menstruation, unspecified] 02-28-2025 Chronic Mood disorders (1 source) Major depressive disorder, [...] 04-27-2024 Episodic Other and delivery including normal (20 sources) Third trimester ; Translations: [Encounter for supervision of normal , unspecified, third trimester] 04-27-2024 Episodic Other upper respiratory infections (1 source) Chronic sinusitis, unspecified; Translations: [CHRONIC SINUSITIS UNSPECIFIED] Onset: 05-26-2022 Chronic Residual codes; unclassified (2 sources) Gestation [...] 2019 novel coronavirus disease (COVID-19)] Onset: 11-23-2023 Resolved: 02-27-2025 11-23-2023 Episodic Other nervous system disorders (20 sources) History of Guillain [place] syndrome; Translations: [Personal history of other diseases [...] mellitus] 03-30-2024 Episodic Other upper respiratory disease (20 sources) Allergic rhinitis; Translations: [Allergic rhinitis, unspecified] Onset: 11-19-2023 Resolved: 02-27-2025 11-19-2023 Chronic Other upper respiratory disease (3 sources) Unspecified disorder of nose and nasal sinuses; Translations: [UNS DISORDER NOSE AND NASAL SINUSES] Onset: 05-23-2022 Episodic Other upper respiratory infections (20 sources) Acute frontal sinusitis; Translations: [Acute frontal sinusitis, unspecified] Onset: 11-19-2023 Resolved: 02-27-2025 11-19-2023 Episodic Residual codes; unclassified (20 sources) Upper airway resistance syndrome; Translations: [Other sleep disorders] Onset: 11-19-2023 Resolved: 02-27-2025 11-19-2023 Chronic Residual codes; unclassified (2 sources) Gestation period, 24 weeks; Translations: [24 weeks gestation of ] 03-30-2024 Episodic Results Test Name Value Interpretation Reference Range Facility ALL CBC WITH AUTO DIFFon BASOPHILS ABSOLUTE AUTO 0.1 [facility] Basophils/100 WBC (Bld) 0.6 % 0.2 - 2.0 % [facility] Eosinophils/100 WBC (Bld) 0.5 % Low 0.9 - 7.0 % [facility] Erythrocyte distribution width (RBC) [Ratio] 12.6 % 11.0 - 15.0 % [facility] Hematocrit (Bld) [Volume fraction] 39.1 % 36.0 - 48.0 % [facility] Hemoglobin (Bld) [Mass/Vol] 13.5 g/dL 12.0 - 16.0 g/dL [facility] IMMATURE GRANULOCYTES ABS AUTO 0.02 [facility] Immature granulocytes/100 WBC (Bld) 0.2 % 0.0 - 0.5 % [facility] Interpretation and review of laboratory results Abnormal [facility] LYMPHOCYTES ABSOLUTE AUTO 2.6 [facility] Lymphocytes/100 WBC (Bld) 26 % 20.5 - 60.0 % [facility] MCH (RBC) [Entitic mass] 29.4 pg 26.7 - 34.0 pg [facility] MCHC (RBC) [Mass/Vol] 34.5 g/dL 29.9 - 35.2 g/dL [facility] MCV (RBC) [Entitic vol] 85.2 fL 81.0 - 99.0 fL [facility] MONOCYTES ABSOLUTE AUTO 0.5 [facility] Monocytes/100 WBC (Bld) 5 % 1.7 - 12.0 % [facility] NEUTROPHILS ABSOLUTE AUTO 6.9 High [facility] Neutrophils/100 WBC (Bld) 67.7 % 43.0 - 75.0 % [facility] Platelet mean volume (Bld) [Entitic vol] 11.2 fL 9.5 - 13.5 fL [facility] TB EO # 0.1 [facility] TB PLT 288 [facility] RBC 4.59 [facility] TB WBC 10.1 [facility] HCG ( test) Ql (U)o n 03-09-2025 Interpretation and review of laboratory results Abnormal [facility] Preg Test, Ur Positive Negative [facility] Urinalysis macro (dipstick) panel (U)on 08-21-2025 Bilirubin, UA Negative Negative - 4(70) +++ mg/dL [facility] Blood, UA Negative Negative - 50 Gabriele/mcL [facility] Clarity, UA Clear [facility] Color, UA Yellow [facility] Glucose, UA Negative Negative - 2000(110) ++++ mg/dL [facility] Interpretation and review of laboratory results Abnormal [facility] Ketones, UA Negative Negative - 160(16) ++++ mg/dL [facility] Leukocytes, UA Positive Negative - 500+++ Alexsandra/mcL [facility] Nitrite, UA Negative Negative - Positive [facility] pH, UA 6 5 - 9 [facility] Protein, UA Positive Negative - 1999(20) ++++ mg/dL [facility] Spec Grav, UA 1.03 1 - 1.03 [facility] Urobilinogen, UA 1.0 0.2 - 12 mg/dL [facility] TB PREG QUANT HCGon 02-02- 025 HCG QUANTITATIVE 176 mIU/mL [facility] Comment on above: 5-50 0.2-1 WEEK 50-500 1-2 WEEKS 100-5,000 2-3 WEEKS 500-10,000 3-4 WEEKS 1,000-50,000 4-5 WEEKS 10,000-100,000 5-6 WEEKS 15,000-200,000 6-8 WEEKS 10,000-100,000 2-3 MONTHS [facility] ALL CBC WITH AUTO DIFFon Erythrocyte distribution width (RBC) [Ratio] 13.5 % 11.0 - 15.0 % [facility] Hematocrit (Bld) [Volume fraction] 34.2 % Low 36.0 - 48.0 % [facility] Hemoglobin (Bld) [Mass/Vol] 11.2 g/dL Low 12.0 - 16.0 g/dL [facility] Interpretation and review of laboratory results Abnormal [facility] MCH (RBC) [Entitic mass] 28.2 pg 26.7 - 34.0 pg [facility] MCHC (RBC) [Mass/Vol] 32.7 g/dL 29.9 - 35.2 g/dL [facility] MCV (RBC) [Entitic vol] 86.1 fL 81.0 - 99.0 fL [facility] Platelet mean volume (Bld) [Entitic vol] 11.5 fL 9.5 - 13.5 fL [facility] TBH PLT 302 [facility] RBC 3.97 Low [facility]H WBC 24.5 High [facility] Fetaldex / [facility]on 07-13-2024 [facility] Ratio 0.0020 Ratio Normal [facility] Comment on above: Result Comment: PERF ORMED BY: [facility] [place] [address] PATHOLOGIST [employer] [facility] [employer] DANICA Newman 07-12-2024 L -- ---- Specimen: [id number] Received: 07/14/24 Status: YANNA Beard Num: [id number] Spec Type: Surgical Subm Dr: Roosevelt Martínez Tissues: A Placenta - 3rd Trimester (Greater than 28 weeks) (PLACENTA) Procedures: AFRICA/Scarlett, Gross/Samanta L5 ---- Age/ Patient Sex Location Account Attending Physician ---- Latha Cuevas / LABELL [id number] Roosevelt Martínez ---- SPEC NUM: [id number] RECD: 07/14/24 STATUS: YANNA BEARD NUM: [id number] YOUNG: 07/12/24- SUBM DR: Roosevelt Martínez ENTERED: 07/14/[address]: Glenda,Lab SPEC TYPE: Surgical DEPT: DORA ANDERS ENTERED BY: [id number] RECV BY: [id number] ORDERED: HE/3, Gross/Micro L5 ORDERED: HE/3, Gross/Micro [...] date of : Single MEMBRANES: ---- Specimen: [id number] Received: 07/14/24 Status: YANNA Beard Num: [id number] Spec Type: Surgical Subm Dr: Roosevelt Martínez Tissues: A Placenta - 3rd Trimester (Greater than 28 weeks) (PLACENTA) Procedures: HE/3, Gross/Micro L5 ---- Patient: MasonLatha [id number] (Continued) ---- Specimen: [id number] Received: 07/14/24 (Continued) Gross Description (Continued) Signed (signature on file) Alfonso Cali MD 07/18/24 1754 ---- Specimen: [id number] Received: 07/14/24 Status: YANNA Beard Num: [id number] Spec Type: Surgical Subm Dr: Roosevelt Martínez Tissues: A Placenta - 3rd Trimester (Greater than 28 weeks) (PLACENTA) Procedures: HE/3, Gross/Micro L5 ---- Patient: Latha Cuevas [id number] (Continued) ---- Specimen: [id number] Received: 07/14/24-1326 (Continued) Gross Description (Continued) Placenta [...] Rolled membrane, two sections of cord A2-A3 [facility] sections of placenta (3, , [id number]) JG Microscopic Description Microscopic examinations are performed supporting the above interpretation CPT Codes 19750 ---- ---- Specimen: [id number] Received: 07/14/24 Status: YANNA Beard Num: [id number] Spec Type: Surgical Subm Dr: Roosevelt Martínez Tissues: A Placenta - 3rd Trimester (Greater (more content not included)... Normal [facility] CBC WITH PLATELET NO DI FFERENTIALon 07-11-2024 Erythrocyte distribution width (RBC) [Ratio] 13.3 % 11.0 - 15.0 % [facility] Hematocrit (Bld) [Volume fraction] 32 % Low 36.0 - 48.0 % [facility] Hemoglobin (Bld) [Mass/Vol] 10.6 g/dL Low 12.0 - 16.0 g/dL [facility] Interpretation and review of laboratory results Abnormal [facility] MCH (RBC) [Entitic mass] 28.1 pg 26.7 - 34.0 pg [facility] MCHC (RBC) [Mass/Vol] 33.1 g/dL 29.9 - 35.2 g/dL [facility] MCV (RBC) [Entitic vol] 84.9 fL 81.0 - 99.0 fL [facility] Platelet mean volume (Bld) [Entitic vol] 12 fL 9.5 - 13.5 fL [facility] TBH PLT 296 [facility] TB RBC 3.77 Low [facility] TB WBC 13.1 High [facility] Urinalysis macro (dipstick) panel (U)on 06-29-2024 Bilirubin, UA Negative Negative - 4(70) +++ mg/dL [facility] Blood, UA Negative Negative - 50 Gabriele/mcL [facility] Clarity, UA Clear [facility] Color, UA Yellow [facility] Glucose, UA Negative Negative - 1999(110) ++++ mg/dL [facility] Interpretation and review of laboratory results Abnormal [facility] Ketones, UA Negative Negative - 160(16) ++++ mg/dL [facility] Leukocytes, UA Negative Negative - 500+++ Alexsandra/mcL [facility] Nitrite, UA Negative Negative - Positive [facility] pH, UA 6.5 5 - 9 [facility] Protein, UA Negative Negative - 1999(20) ++++ mg/dL [facility] Spec Grav, UA 1.02 1 - 1.03 [facility] Urobilinogen, UA 1.0 0.2 - 12 mg/dL [facility] Urinalysis macro (dipstick) panel (U)Ordered By: Amarilis Oden on 06-22-2024 Bilirubin, UA Negative Negative - 4(70) +++ mg/dL [facility] Blood, UA Positive Negative - 50 Gabriele/mcL [facility] Comment on above: trace-intact Clarity, UA Clear [facility] Color, UA Yellow [facility] Glucose, UA Negative Negative - 1999(110) ++++ mg/dL [facility] Interpretation and review of laboratory results Abnormal [facility] Ketones, UA Negative Negative - 160(16) ++++ mg/dL [facility] Leukocytes, UA Positive Negative - 500+++ Alexsandra/mcL [facility] Comment on above: large Nitrite, UA Negative Negative - Positive [facility] pH, UA 6 5 - 9 [facility] Protein, UA Negative Negative - 1999(20) ++++ mg/dL [facility] Spec Grav, UA 1.025 1 - 1.03 [facility] Urobilinogen, UA 0.2 0.2 - 12 mg/dL [facility] Urinalysis macro (dipstick) panel (U)on 06-14-2024 Bilirubin, UA Negative Negative - 4(70) +++ mg/dL [facility] Blood, UA Positive Negative - 50 Gabriele/mcL [facility] Comment on above: trace Clarity, UA Clear [facility] Color, UA Yellow [facility] Glucose, UA Negative Negative - 1999(110) ++++ mg/dL [facility] Interpretation and review of laboratory results Abnormal [facility] Ketones, UA Negative Negative - 160(16) ++++ mg/dL [facility] Leukocytes, UA Trace Negative - 500+++ Alexsandra/mcL [facility] Nitrite, UA Negative Negative - Positive [facility] pH, UA 6.5 5 - 9 [facility] Protein, UA Trace Negative - 1999(20) ++++ mg/dL [facility] Spec Grav, UA 1.025 1 - 1.03 [facility] Urobilinogen, UA 1.0 0.2 - 12 mg/dL [facility] Urinalysis macro (dipstick) panel (U)on 06-07-2024 Bilirubin, UA Negative Negative - 4(70) +++ mg/dL [facility] Blood, UA Negative Negative - 50 Gabriele/mcL [facility] Clarity, UA Clear [facility] Color, UA Yellow [facility] Glucose, UA Negative Negative - 1999(110) ++++ mg/dL [facility] Interpretation and review of laboratory results Abnormal [facility] Ketones, UA Positive Negative - 160(16) ++++ mg/dL [facility] Comment on above: trace Leukocytes, UA Negative Negative - 500+++ Alexsandra/mcL [facility] Nitrite, UA Negative Negative - Positive [facility] pH, UA 7 5 - 9 [facility] Protein, UA Negative Negative - 1999(20) ++++ mg/dL [facility] Spec Grav, UA 1.025 1 - 1.03 [facility] Urobilinogen, UA 0.2 0.2 - 12 mg/dL [facility] Urinalysis macro (dipstick) panel (U)on 05-24-2024 Bilirubin, UA Negative Negative - 4(70) +++ mg/dL [facility] Blood, UA Positive Negative - 50 Gabrieel/mcL [facility] Comment on above: trace Clarity, UA Clear [facility] Color, UA Yellow [facility] Glucose, UA Negative Negative - 1999(110) ++++ mg/dL [facility] Interpretation and review of laboratory results Abnormal [facility] Ketones, UA Negative Negative - 160(16) ++++ mg/dL [facility] Leukocytes, UA Positive Negative - 500+++ Alexsandra/mcL [facility] Comment on above: small Nitrite, UA Negative Negative - Positive [facility] pH, UA 7 5 - 9 [facility] Protein, UA Negative Negative - 1999(20) ++++ mg/dL [facility] Spec Grav, UA 1.02 1 - 1.03 [facility] Urobilinogen, UA 0.2 0.2 - 12 mg/dL [facility] Urinalysis macro (dipstick) panel (U)on 05-10-2024 Bilirubin, UA Negative Negative - 4(70) +++ mg/dL [facility] Blood, UA Positive Negative - 50 Gabriele/mcL [facility] Comment on above: trace-intact Clarity, UA Clear [facility] Color, UA Yellow [facility] Glucose, UA Negative Negative - 1999(110) ++++ mg/dL [facility] Interpretation and review of laboratory results Abnormal [facility] Ketones, UA Positive Negative - 160(16) ++++ mg/dL [facility] Comment on above: 15 Leukocytes, UA Negative Negative - 500+++ Alexsandra/mcL [facility] Nitrite, UA Negative Negative - Positive [facility] pH, UA 7 5 - 9 [facility] Protein, UA Negative Negative - 1999(20) ++++ mg/dL [facility] Spec Grav, UA 1.025 1 - 1.03 [facility] Urobilinogen, UA 0.2 0.2 - 12 mg/dL [facility] Urinalysis macro (dipstick) panel (U)on 04-27-2024 Bilirubin, UA Positive Negative - 4(70) +++ mg/dL [facility] Comment on above: small Blood, UA Positive Negative - 50 Gabriele/mcL [facility] Comment on above: large Clarity, UA Clear [facility] Color, UA Gay [facility] Glucose, UA Negative Negative - 1999(110) ++++ mg/dL [facility] Interpretation and review of laboratory results Abnormal [facility] Ketones, UA Positive Negative - 160(16) ++++ mg/dL [facility] Comment on above: 40 mg Leukocytes, UA Positive Negative - 500+++ Alexsandra/mcL [facility] Comment on above: small Nitrite, UA Negative Negative - Positive [facility] pH, UA 5.5 5 - 9 [facility] Protein, UA Positive Negative - 1999(20) ++++ mg/dL [facility] Comment on above: 30 mg Spec Grav, UA 1.030 1 - 1.03 [facility] Urobilinogen, UA 1.0 0.2 - 12 mg/dL [facility] ALL CBC WITH AUTO DIFFon BASOPHILS ABSOLUTE AUTO 0.0 [facility] Basophils/100 WBC (Bld) 0.4 % 0.2 - 2.0 % [facility] Eosinophils/100 WBC (Bld) 0.3 % Low 0.9 - 7.0 % [facility] Erythrocyte distribution width (RBC) [Ratio] 12.6 % 11.0 - 15.0 % [facility] Hematocrit (Bld) [Volume fraction] 32.0 % Low 36.0 - 48.0 % [facility] Hemoglobin (Bld) [Mass/Vol] 10.9 g/dL Low 12.0 - 16.0 g/dL [facility] IMMATURE GRANULOCYTES ABS AUTO 0.03 [facility] Immature granulocytes/100 WBC (Bld) 0.3 % 0.0 - 0.5 % [facility] Interpretation and review of laboratory results Abnormal [facility] LYMPHOCYTES ABSOLUTE AUTO 1.9 [facility] Lymphocytes/100 WBC (Bld) 20.2 % Low 20.5 - 60.0 % [facility] MCH (RBC) [Entitic mass] 30.4 pg 26.7 - 34.0 pg [facility] MCHC (RBC) [Mass/Vol] 34.1 g/dL 29.9 - 35.2 g/dL [facility] MCV (RBC) [Entitic vol] 89.1 fL 81.0 - 99.0 fL [facility] MONOCYTES ABSOLUTE AUTO 0.4 [facility] Monocytes/100 WBC (Bld) 4.3 % 1.7 - 12.0 % [facility] NEUTROPHILS ABSOLUTE AUTO 7.0 High [facility] Neutrophils/100 WBC (Bld) 74.5 % 43.0 - 75.0 % [facility] Platelet mean volume (Bld) [Entitic vol] 11.4 fL 9.5 - 13.5 fL [facility] TBH EO # 0.0 [facility] TBH PLT 229 [facility] TB RBC 3.59 Low [facility] TB WBC 9.4 [facility] Urinalysis macro (dipstick) panel (U)on 03-30-2024 Bilirubin, UA Negative Negative - 4(70) +++ mg/dL [facility] Blood, UA Negative Negative - 50 Gabriele/mcL [facility] Clarity, UA Clear [facility] Color, UA Yellow [facility] Glucose, UA Negative Negative - 1999(110) ++++ mg/dL [facility] Interpretation and review of laboratory results Abnormal [facility] Ketones, UA Positive Negative - 160(16) ++++ mg/dL [facility] Leukocytes, UA Negative Negative - 500+++ Alexsandra/mcL [facility] Nitrite, UA Negative Negative - Positive [facility] pH, UA 5.5 5 - 9 [facility] Protein, UA Negative Negative - 1999(20) ++++ mg/dL [facility] Spec Grav, UA 1.030 1 - 1.03 [facility] Urobilinogen, UA 0.2 0.2 - 12 mg/dL [facility] AFP, SERUM, OPEN SPINA BIFID Aon 03-16-2024 AFP MOM 1.19 . [facility] AFP VALUE 75.0 ng/mL . [facility] COMMENT: Comment . [facility] Comment on above: Josephine Ortiz , Ph.D., [facility] Director References: Available Upon Request. Multiples Of Median Cutoffs For AFP Elevations Blanca 2.5 Black 2.8 IDD 2.0 Twins 4.5 Abbreviation Definitions IDD - Insulin Dep Diabetes OSBR - Open Spina Bifida Risk For further inquiries contact [facility] at [phone]. This test was developed and its performance characteristics determined by [employer]. It has not been cleared or approved by the Food and Drug Administration. Performed at: [facility] [address] [place], [place] [id number] Mixing Roll Operator: Ginna Hawley [facility], Phone: [phone] GEST. A[age] ON COLLECTION DATE 21.6 . weeks [facility] GESTAT. AGE BASED ON LMP . [facility] Comment on above: Recalculations are n ot recommended when gestational dating by LMP and ultrasound are within 10 days. INSULIN DEP DIABETES No . [facility] INTERPRETATION Comment . [facility] Comment on above: Interpretation: Scre en [...] Customer Services to discuss available options. The [employer] recommends amniocentesis be offered to women age 35 and older. [age] [facility] MULTIPLE GESTATION No . [facility] OSBR RISK 1 [place] 6704 . [facility] RACE . [facility] RESULTS Report . [facility] TEST RESULTS: Negative . [facility] WEIGHT 171 . lbs [facility] N N LMP [id number] 1 17 N 1 Y 171 N N N N N White/ [facility] Cytology Cervical or vaginal smear or scraping studyon 04-21-2023 [facility] CARDIAC BRAIN ADMITon 023 CK [Catalytic activity/Vol] 102 U/L Normal 26-192 [facility] Comment on above: Performed By: #### C BC #### [facility] [address] [place] [address] Dr. Michelle Cali CK.MB [Mass/Vol] 0.74 ng/mL Normal <=3.60 [facility] Comment on above: Performed By: #### C BC #### [facility] [address] [address] [address] Michelle Cali HSTROP 7.7 pg/mL Normal 4.0-51.3 [facility] Comment on above: Result Comment: CUT- OFF POINTS HAVE BEEN ESTABLISHED BASED ON THE FOURTH UNIVERSAL DEFINITIONS OF MYOCARDIAL INFARCTION. THE UPPER REFERENCE LIMIT (URL) OF TROPONIN, DEFINED THE 99TH PERCENTILE OF cTnI DISTRIBUTION IN A REFERENCE POPULATION, HAS BEEN CONFIRMED THE DECISION THRESHOLD FOR [place] DIAGNOSIS. Performed By: #### C BC #### [facility] [address] [address] [address] Michelle Cali SHAHNAZ 24 ng/mL Normal 9-82 [facility] Comment on above: Performed By: #### C BC #### [facility] [address] [place] [address] Dr. Michelle Cali CBC AUTO DIFFon 12-04-2022 BASO # 0.1 103/ul Normal 0.0-0.1 [facility] Comment on above: Performed By: #### C BC #### [facility] [address] [place] [address] Dr. Michelle Cali Basophils/100 WBC (Bld) 0.9 % Normal 0.2-2.0 [facility] Comment on above: Performed By: #### C BC #### [facility] [address] [place] [address] Dr. Michelle Cali EO # 0.1 103/ul Normal 0.0-0.7 [facility] Comment on above: Performed By: #### C BC #### [facility] [address] [place] [address] Dr. Michelle Cali Eosinophils/100 WBC (Bld) 0.6 % Critically low 0.9-7.0 [facility] Comment on above: Performed By: #### C BC #### [facility] [address] [place] [address] Dr. Michelle Cali Erythrocyte distribution width (RBC) [Ratio] 12.3 % Normal 11.0-15.0 [facility] Comment on above: Performed By: #### C BC #### [facility] [address] [place] [address] Dr. Michelle Cali Hematocrit (Bld) [Volume fraction] 40.3 % Normal 36.0-48.0 [facility] Comment on above: Performed By: #### C BC #### [facility] [address] [place] [address] Dr. Michelle Cali Hemoglobin (Bld) [Mass/Vol] 13.2 g/dL Normal 12.0-16.0 [facility] Comment on above: Performed By: #### C BC #### [facility] [address] [place] [address] Dr. Michelle Cali IG # 0.03 10e3/ul Normal 0.00-0.03 [facility] Comment on above: Performed By: #### C BC #### [facility] [address] [place] [address] Dr. Michelle Cali IG % 0.3 % Normal 0.0-0.5 [facility] Comment on above: Performed By: #### C BC #### [facility] [address] [address] [address] Michelle Cali LYMPH # 4.1 103/ul Critically high 1.2-3.8 [facility] Comment on above: Performed By: #### C BC #### [facility] [address] [address] [address] Michelle Cali Lymphocytes/100 WBC (Bld) 39.9 % Normal 20.5-60.0 [facility] Comment on above: Performed By: #### C BC #### [facility] [address] [place] [address] Dr. Michelle Cali MANUAL DIFF REQ NO Normal [facility] Comment on above: Performed By: #### C BC #### [facility] [address] [place] [address] Dr. Michelle Cali MCH (RBC) [Entitic mass] 29.8 pg Normal 26.7-34.0 [facility] Comment on above: Performed By: #### C BC #### [facility] [address] [place] [address] Dr. Michelle Cali MCHC (RBC) [Mass/Vol] 32.8 g/dL Normal 29.9-35.2 [facility] Comment on above: Performed By: #### C BC #### [facility] [address] [place] [address] Dr. Michelle Cali MCV (RBC) [Entitic vol] 91.0 fL Normal 81.0-99.0 [facility] Comment on above: Performed By: #### C BC #### [facility] [address] [place] [address] Dr. Michelle Cali MONO # 0.5 103/ul Normal 0.3-0.8 [facility] Comment on above: Performed By: #### C BC #### [facility] [address] [place] [address] Dr. Michelle Cali Monocytes/100 WBC (Bld) 5.2 % Normal 1.7-12.0 [facility] Comment on above: Performed By: #### C BC #### [facility] [address] [address] [address] Michelle Cali NEUT # 5.4 103/ul Normal 1.4-6.5 [facility] Comment on above: Performed By: #### C BC #### [facility] [address] [place] [address] Dr. Michelle Cali Neutrophils/100 WBC (Bld) 53.1 % Normal 43.0-75.0 [facility] Comment on above: Performed By: #### C BC #### [facility] [address] [place] [address] Dr. Michelle Cali Platelet mean volume (Bld) [Entitic vol] 10.6 fL Normal 9.5-13.5 [facility] Comment on above: Performed By: #### C BC #### [facility] [address] [place] [address] Dr. Michelle Cali PLT 310 103/ul Normal 150-450 [facility] Comment on above: Performed By: #### C BC #### [facility] [address] [place] [address] Dr. Michelle Cali RBC 4.43 106/ul Normal 4.20-5.40 [facility] Comment on above: Performed By: #### C BC #### [facility] [address] [place] [address] Dr. Michelle Cali WBC 10.2 103/ul Normal 4.0-11.0 [facility] Comment on above: Performed By: #### C BC #### [facility] [address] [place] [address] Dr. Michelle Cali D-DIMERon 12-04-2022 D-DIMER 0.19 mg/L FEU Normal <=0.59 [facility] Comment on above: Performed By: #### C BC #### [facility] [address] [place] [address] Dr. Michelle Cali D-DIMER COMMENTS SEE BELOW Normal [facility] Comment on above: Result Comment: Incr eases [...] hospitalization. Performed By: #### C BC #### [facility] [address] [place] [address] Dr. Michelle Cali ER URINE PROFILEon 3 Bilirubin Ql (U) Negative Normal NEGATIVE [facility] Comment on above: Performed By: #### P REGU, ERUR #### [facility] [address] [place] [address] Dr. Michelle Cali Clarity (U) CLEAR Normal CLEAR [facility] Comment on above: Performed By: #### P REGU, ERUR #### [facility] [address] [place] [address] Dr. Michelle Cali Color (U) YELLOW Normal YELLOW [facility] Comment on above: Performed By: #### P REGU, ERUR #### [facility] [address] [place] [address] Dr. Michelle COOND A micrscopic examination will be performed if indicated. Normal [facility] Comment on above: Performed By: #### P REGU, ERUR #### [facility] [address] [place] [address] Dr. Michelle Cali Glucose Ql (U) Negative Normal NEGATIVE [facility] Comment on above: Performed By: #### P REGU, ERUR #### [facility] [address] [place] [address] Dr. Michelle Cali Hemoglobin Ql (U) Negative Normal NEGATIVE [facility] Comment on above: Performed By: #### P REGU, ERUR #### [facility] [address] [place] [address] Dr. Michelle Cali Ketones Ql (U) Negative Normal NEGATIVE [facility] Comment on above: Performed By: #### P REGU, ERUR #### [facility] [address] [place] [address] Dr. Michelle Cali LEUKOCYTES Negative Normal NEGATIVE [facility] Comment on above: Performed By: #### P REGU, ERUR #### [facility] [address] [address] [address] Michelle Cali Nitrite Ql (U) Negative Normal NEGATIVE [facility] Comment on above: Performed By: #### P REGU, ERUR #### [facility] [address] [address] [address] Michelle Cali pH (U) 6.0 [pH] Normal 5-9 [facility] Comment on above: Performed By: #### P REGU, ERUR #### [facility] [address] [address] [address] Michelle Cali SPEC GRAVITY >=1.030 Abnormal 1.005-<=1.025 [facility] Comment on above: Performed By: #### P REGU, ERUR #### [facility] [address] [address] [address] Michelle Cali UA PROTEIN TRACE Normal NEGATIVE/ TRACE [facility] Comment on above: Performed By: #### P REGU, ERUR #### [facility] [address] [address] [address] Michelle Cali UR MICRO IND NOT INDICATED Normal [facility] Comment on above: Performed By: #### P REGU, ERUR #### [facility] [address] [address] [address] Michelle Cali Urobilinogen Qn (U) 0.2 {Kalyan'U}/dL Normal 0.2 - 1. 0 [facility] Comment on above: Performed By: #### P REGU, ERUR #### [facility] [address] [address] [address] Michelle Cali URon 12-04-2022 , QUAL Negative Normal NEGATIVE [facility] Comment on above: Performed By: #### P REGU, ERUR #### [facility] [address] [address] [address] Michelle Cali PROF 14(COMP METB)on 023 Albumin [Mass/Vol] 3.9 g/dL Normal 3.4-5.0 [facility] Comment on above: Performed By: #### C BC #### [facility] [address] [place] [address] Dr. Michelle Cali Albumin/Globulin [Mass ratio] 1.0 {ratio} Normal [facility] Comment on above: Performed By: #### C BC #### [facility] [address] [place] [address] Dr. Michelle Cali ALP [Catalytic activity/Vol] 69 U/L Normal 46-116 [facility] Comment on above: Performed By: #### C BC #### [facility] [address] [place] [address] Dr. Michelle Cali ALT [Catalytic activity/Vol] 13 U/L Critically low 14-59 [facility] Comment on above: Performed By: #### C BC #### [facility] [address] [place] [address] Dr. Michelle Cali Anion gap [Moles/Vol] 13.6 mmol/L Normal [facility] Comment on above: Performed By: #### C BC #### [facility] [address] [place] [address] Dr. Michelle Cali AST [Catalytic activity/Vol] 11 U/L Critically low 15-37 [facility] Comment on above: Performed By: #### C BC #### [facility] [address] [place] [address] Dr. Michelle Cali Bilirubin [Mass/Vol] 0.3 mg/dL Normal 0.2-1.0 [facility] Comment on above: Performed By: #### C BC #### [facility] [address] [place] [address] Dr. Michelle Cali Calcium [Mass/Vol] 9.0 mg/dL Normal 8.5-10.1 [facility] Comment on above: Performed By: #### C BC #### [facility] [address] [place] [address] Dr. Michelle Cali Chloride [Moles/Vol] 105 mmol/L Normal 98-107 [facility] Comment on above: Performed By: #### C BC #### [facility] [address] [address] [address] Michelle Cali CO2 [Moles/Vol] 26.8 mmol/L Normal 21.0-32.0 [facility] Comment on above: Performed By: #### C BC #### [facility] [address] [address] [address] Michelle Cali Creatinine [Mass/Vol] 0.82 mg/dL Normal 0.55-1.02 [facility] Comment on above: Performed By: #### C BC #### [facility] [address] [address] [address] Michelle Cali EGFR-AF STATELESS >60 Normal >=60 [facility] Comment on above: Performed By: #### C BC #### [facility] [address] [address] [address] Michelle Cali EGFR-NON AF STATELESS >60 Normal >=60 [facility] Comment on above: Performed By: #### C BC #### [facility] [address] [address] [address] Michelle Cali Globulin (S) [Mass/Vol] 3.8 g/dL Normal [facility] Comment on above: Performed By: #### C BC #### [facility] [address] [address] [address] Michelle Cali Glucose [Mass/Vol] 104 mg/dL Normal 74-106 [facility] Comment on above: Performed By: #### C BC #### [facility] [address] [address] [address] Michelle Cali Potassium [Moles/Vol] 3.4 mmol/L Critically low 3.5-5.1 [facility] Comment on above: Performed By: #### C BC #### [facility] [address] [address] [address] Michelle Cali Protein [Mass/Vol] 7.7 g/dL Normal 6.4-8.2 [facility] Comment on above: Performed By: #### C BC #### [facility] [address] [place] [address] Dr. Michelle Cali Sodium [Moles/Vol] 142 mmol/L Normal 136-145 [facility] Comment on above: Performed By: #### C BC #### [facility] [address] [place] [address] Dr. Michelle Cali Urea nitrogen [Mass/Vol] 9.0 mg/dL Normal 7.0-18.0 [facility] Comment on above: Performed By: #### C BC #### [facility] [address] [place] [address] Dr. Michelle Cali Urea nitrogen/Creatinine [Mass ratio] 11.0 mg/mg Normal [facility] Comment on above: Performed By: #### C BC #### [facility] [address] [place] [address] Dr. Michelle Cali TSHon 12-04-2022 TSH 6.358 uIU/mL Critically high 0.358-3.740 [facility] Comment on above: Performed By: #### C BC #### [facility] [address] [place] [address] Dr. Micehlle Cali INSULINon 09-19-2022 Insulin 6.8 uIU/mL Normal 2.6-24.9 [facility] Comment on above: Performed By: #### C BC #### [facility] [address] [place] [address] Dr. Michelle Cali CBC AUTO DIFFon 09-18-2022 BASO # 0.1 103/ul Normal 0.0-0.1 [facility] Comment on above: Performed By: #### C BC #### [facility] [address] [place] [address] Dr. Michelle Cali Basophils/100 WBC (Bld) 0.8 % Normal 0.2-2.0 [facility] Comment on above: Performed By: #### C BC #### [facility] [address] [place] [address] Dr. Michelle Cali EO # 0.1 103/ul Normal 0.0-0.7 [facility] Comment on above: Performed By: #### C BC #### [facility] [address] [place] [address] Dr. Michelle Cali Eosinophils/100 WBC (Bld) 0.8 % Critically low 0.9-7.0 [facility] Comment on above: Performed By: #### C BC #### [facility] [address] [place] [address] Dr. Michelle Cali Erythrocyte distribution width (RBC) [Ratio] 12.4 % Normal 11.0-15.0 [facility] Comment on above: Performed By: #### C BC #### [facility] [address] [place] [address] Dr. Michelle Cali Hematocrit (Bld) [Volume fraction] 41.6 % Normal 36.0-48.0 [facility] Comment on above: Performed By: #### C BC #### [facility] [address] [place] [address] Dr. Michelle Cali Hemoglobin (Bld) [Mass/Vol] 14.3 g/dL Normal 12.0-16.0 [facility] Comment on above: Performed By: #### C BC #### [facility] [address] [place] [address] Dr. Michelle Cali IG # 0.03 10e3/ul Normal 0.00-0.03 [facility] Comment on above: Performed By: #### C BC #### [facility] [address] [place] [address] Dr. Michelle Cali IG % 0.3 % Normal 0.0-0.5 [facility] Comment on above: Performed By: #### C BC #### [facility] [address] [place] [address] Dr. Michelle Cali LYMPH # 3.1 103/ul Normal 1.2-3.8 [facility] Comment on above: Performed By: #### C BC #### [facility] [address] [place] [address] Dr. Michelle aCli Lymphocytes/100 WBC (Bld) 32.8 % Normal 20.5-60.0 [facility] Comment on above: Performed By: #### C BC #### [facility] [address] [place] [address] Dr. Michelle Cali MANUAL DIFF REQ NO Normal [facility] Comment on above: Performed By: #### C BC #### [facility] [address] [place] [address] Dr. Michelle Cali MCH (RBC) [Entitic mass] 29.5 pg Normal 26.7-34.0 [facility] Comment on above: Performed By: #### C BC #### [facility] [address] [place] [address] Dr. Michelle Cali MCHC (RBC) [Mass/Vol] 34.4 g/dL Normal 29.9-35.2 [facility] Comment on above: Performed By: #### C BC #### [facility] [address] [place] [address] Dr. Michelle Cali MCV (RBC) [Entitic vol] 86.0 fL Normal 81.0-99.0 [facility] Comment on above: Performed By: #### C BC #### [facility] [address] [place] [address] Dr. Michelle Cali MONO # 0.5 103/ul Normal 0.3-0.8 [facility] Comment on above: Performed By: #### C BC #### [facility] [address] [place] [address] Dr. Michelle Cali Monocytes/100 WBC (Bld) 5.6 % Normal 1.7-12.0 [facility] Comment on above: Performed By: #### C BC #### [facility] [address] [place] [address] Dr. Michelle Cali NEUT # 5.7 103/ul Normal 1.4-6.5 [facility] Comment on above: Performed By: #### C BC #### [facility] [address] [place] [address] Dr. Michelle Cali Neutrophils/100 WBC (Bld) 59.7 % Normal 43.0-75.0 [facility] Comment on above: Performed By: #### C BC #### [facility] [address] [place], [place] [id number] Dr. Michelle Cali Platelet mean volume (Bld) [Entitic vol] 10.3 fL Normal 9.5-13.5 [facility] Comment on above: Performed By: #### C BC #### [facility] [address] [place] [address] Dr. Michelle Cali PLT 319 103/ul Normal 150-450 [facility] Comment on above: Performed By: #### C BC #### [facility] [address] [place] [address] Dr. Michelle Cali RBC 4.84 106/ul Normal 4.20-5.40 [facility] Comment on above: Performed By: #### C BC #### [facility] [address] [place] [address] Dr. Michelle Cali WBC 9.5 103/ul Normal 4.0-11.0 [facility] Comment on above: Performed By: #### C BC #### [facility] [address] [place] [address] Dr. Michelle Cali FREE THYROXINE INDEX T7on FTI 2.36 Normal 1.30-4.50 [facility] Comment on above: Performed By: #### T SH, CMP, T7, LIPID #### [facility] [address] [place] [address] Dr. Michelle Cali T3U 31.0 % Normal 30.0-39.0 [facility] Comment on above: Performed By: #### T SH, CMP, T7, LIPID #### [facility] [address] [place] [address] Dr. Michelle Cali T4 [Mass/Vol] 7.60 ug/dL Normal 4.80-13.90 [facility] Comment on above: Performed By: #### T SH, CMP, T7, LIPID #### [facility] [address] [place] [address] Dr. Michelle Cali GLYCOHEMOGLOBIN A1Con 2022 ADA RECOMMENDATION SEE BELOW Normal [facility] Comment on above: Result Comment: ADA RECOMMENDED LIMIT 4.0 - 6.0 ADA THERAPEUTIC TARGET < 7.0 ACTION SUGGESTED > 7.0 Performed By: #### C BC #### [facility] [address] [address] [address] Michelle Cali Glucose [Mass/Vol] 105 mg/dL Normal [facility] Comment on above: Performed By: #### C BC #### [facility] [address] [address] [address] Michelle Cali HbA1c (Bld) [Mass fraction] 5.3 % Normal 4.5-6.2 [facility] Comment on above: Performed By: #### C BC #### [facility] [address] [address] [address] Michelle Cali IRONon 09-18-2022 Iron [Mass/Vol] 80.0 ug/dL Normal 50.0-170.0 [facility] Comment on above: Performed By: #### I ABIGAIL #### [facility] [address] [place] [address] Dr. Michelle Cali LIPID PROFILEon 09-18-2022 CHOL-HDL RATIO NORM SEE BELOW Normal [facility] Comment on above: Result Comment: 3.3 - 4.4 LOW RISK 4.4 - 7.1 AVERAGE RISK 7.1 - 11.0 MODERATE RISK >11.0 HIGH RISK Performed By: #### T SH, CMP, T7, LIPID #### [facility] [address] [place] [address] Dr. Michelle Cali Cholesterol [Mass/Vol] 175 mg/dL Normal <=200 [facility] Comment on above: Performed By: #### T SH, CMP, T7, LIPID #### [facility] [address] [address] [address] Michelle Cali Cholesterol in HDL [Mass/Vol] 72 mg/dL Critically high 40-60 [facility] Comment on above: Performed By: #### T SH, CMP, T7, LIPID #### [facility] [address] [address] [address] Michelle Cali Cholesterol in LDL [Mass/Vol] 85.8 mg/dL Normal [facility] Comment on above: Performed By: #### T SH, CMP, T7, LIPID #### [facility] [address] [address] [address] Michelle Cali Cholesterol.total/Ch olesterol in HDL [Mass ratio] 2.4 {ratio} Normal [facility] Comment on above: Performed By: #### T SH, CMP, T7, LIPID #### [facility] [address] [address] [address] Michelle Cali HDL NORMAL > or = 60 mg/dl - LO W CARDIOVASCULAR RISK <40 mg/dl - HIGH CARDIOVASCULAR RISK Normal [facility] Comment on above: Performed By: #### T SH, CMP, T7, LIPID #### [facility] [address] [address] [address] Michelle Cali LDL CALC NORMAL SEE BELOW Normal [facility] Comment on above: Result Comment: <100 mg/dl OPTIMAL 100 - 129 mg/dl NEAR OR ABOVE OPTIMAL 130 - 159 mg/dl BORDERLINE HIGH 160 - 189 mg/dl HIGH >190 mg/dl VERY HIGH Performed By: #### T SH, CMP, T7, LIPID #### [facility] [address] [address] [address] Michelle Cali Triglyceride [Mass/Vol] 86 mg/dL Normal <=150 [facility] Comment on above: Performed By: #### T SH, CMP, T7, LIPID #### [facility] [address] [address] [address] Michelle Cali VLDL CALC 17.2 mg/dL Normal [facility] Comment on above: Performed By: #### T SH, CMP, T7, LIPID #### [facility] [address] [address] [address] Michelle Cali PROF 14(COMP METB)on 023 Albumin [Mass/Vol] 4.3 g/dL Normal 3.4-5.0 [facility] Comment on above: Performed By: #### T SH, CMP, T7, LIPID #### [facility] [address] [address] [address] Michelle Cali Albumin/Globulin [Mass ratio] 1.0 {ratio} Normal [facility] Comment on above: Performed By: #### T SH, CMP, T7, LIPID #### [facility] [address] [address] [address] Michelle Cali ALP [Catalytic activity/Vol] 65 U/L Normal 46-116 [facility] Comment on above: Performed By: #### T SH, CMP, T7, LIPID #### [facility] [address] [place] [address] Dr. Michelle Cali ALT [Catalytic activity/Vol] 17 U/L Normal 14-59 [facility] Comment on above: Performed By: #### T SH, CMP, T7, LIPID #### [facility] [address] [place] [address] Dr. Michelle Cali Anion gap [Moles/Vol] 12.2 mmol/L Normal [facility] Comment on above: Performed By: #### T SH, CMP, T7, LIPID #### [facility] [address] [place] [address] Dr. Michelle Cali AST [Catalytic activity/Vol] 15 U/L Normal 15-37 [facility] Comment on above: Performed By: #### T SH, CMP, T7, LIPID #### [facility] [address] [place] [address] Dr. Michelle Cali Bilirubin [Mass/Vol] 0.4 mg/dL Normal 0.2-1.0 [facility] Comment on above: Performed By: #### T SH, CMP, T7, LIPID #### [facility] [address] [address] [address] Michelle Cali Calcium [Mass/Vol] 9.4 mg/dL Normal 8.5-10.1 [facility] Comment on above: Performed By: #### T SH, CMP, T7, LIPID #### [facility] [address] [place] [address] Dr. Michelle Cali Chloride [Moles/Vol] 104 mmol/L Normal 98-107 [facility] Comment on above: Performed By: #### T SH, CMP, T7, LIPID #### [facility] [address] [address] [address] Michelle Cali CO2 [Moles/Vol] 27.7 mmol/L Normal 21.0-32.0 [facility] Comment on above: Performed By: #### T SH, CMP, T7, LIPID #### [facility] [address] [address] [address] Michelle Cali Creatinine [Mass/Vol] 0.63 mg/dL Normal 0.55-1.02 [facility] Comment on above: Performed By: #### T SH, CMP, T7, LIPID #### [facility] [address] [address] [address] Michelle Cali EGFR-AF STATELESS >60 Normal >=60 [facility] Comment on above: Performed By: #### T SH, CMP, T7, LIPID #### [facility] [address] [address] [address] Michelle Cali EGFR-NON AF STATELESS >60 Normal >=60 [facility] Comment on above: Performed By: #### T SH, CMP, T7, LIPID #### [facility] [address] [address] [address] Michelle Cali Globulin (S) [Mass/Vol] 4.2 g/dL Normal [facility] Comment on above: Performed By: #### T SH, CMP, T7, LIPID #### [facility] [address] [address] [address] Michelle Cali Glucose [Mass/Vol] 83 mg/dL Normal 74-106 [facility] Comment on above: Performed By: #### T SH, CMP, T7, LIPID #### [facility] [address] [address] [address] Michelle Cali Potassium [Moles/Vol] 3.9 mmol/L Normal 3.5-5.1 [facility] Comment on above: Performed By: #### T SH, CMP, T7, LIPID #### [facility] [address] [address] [address] Michelle Cali Protein [Mass/Vol] 8.5 g/dL Critically high 6.4-8.2 [facility] Comment on above: Performed By: #### T SH, CMP, T7, LIPID #### [facility] [address] [place], [place] [address] Dr. Michelle Cali Sodium [Moles/Vol] 140 mmol/L Normal 136-145 [facility] Comment on above: Performed By: #### T SH, CMP, T7, LIPID #### [facility] [address] [place], [place] [address] Dr. Michelle Cali Urea nitrogen [Mass/Vol] 9.0 mg/dL Normal 7.0-18.0 [facility] Comment on above: Performed By: #### T SH, CMP, T7, LIPID #### [facility] [address] [place], [place] [address] Dr. Michelle Cali Urea nitrogen/Creatinine [Mass ratio] 14.3 mg/mg Normal [facility] Comment on above: Performed By: #### T SH, CMP, T7, LIPID #### [facility] [address] [place], [place] [address] Dr. Michelle Cali TSHon 09-18-2022 TSH 1.245 uIU/mL Normal 0.358-3.740 [facility] Comment on above: Performed By: #### T SH, CMP, T7, LIPID #### [facility] [address] [id number] Michelle Cali [address] ABD/PELV W CONon [...] JEFFREY BEGUM Date: 2022-07-06 01:26 Normal [facility] CBC AUTO DIFFon 07-05-2022 BASO # 0.1 103/ul Normal 0.0-0.1 [facility] Comment on above: Performed By: #### C BC #### [facility] [address] [place] [address] Dr. Michelle Cali Basophils/100 WBC (Bld) 0.9 % Normal 0.2-2.0 [facility] Comment on above: Performed By: #### C BC #### [facility] [address] [address] [address] Michelle Cali EO # 0.1 103/ul Normal 0.0-0.7 [facility] Comment on above: Performed By: #### C BC #### [facility] [address] [address] [address] Michelle Cali Eosinophils/100 WBC (Bld) 1.0 % Normal 0.9-7.0 [facility] Comment on above: Performed By: #### C BC #### [facility] [address] [address] [address] Michelle Cali Erythrocyte distribution width (RBC) [Ratio] 12.5 % Normal 11.0-15.0 [facility] Comment on above: Performed By: #### C BC #### [facility] [address] [place] [address] Dr. Michelle Cali Hematocrit (Bld) [Volume fraction] 39.6 % Normal 36.0-48.0 [facility] Comment on above: Performed By: #### C BC #### [facility] [address] [address] [address] Michelle Cali Hemoglobin (Bld) [Mass/Vol] 13.6 g/dL Normal 12.0-16.0 [facility] Comment on above: Performed By: #### C BC #### [facility] [address] [address] [address] Michelle Cali IG # 0.02 10e3/ul Normal 0.00-0.03 [facility] Comment on above: Performed By: #### C BC #### [facility] [address] [place] [address] Dr. Michelle Cali IG % 0.2 % Normal 0.0-0.5 [facility] Comment on above: Performed By: #### C BC #### [facility] [address] [place] [address] Dr. Michelle Cali LYMPH # 4.0 103/ul Critically high 1.2-3.8 [facility] Comment on above: Performed By: #### C BC #### [facility] [address] [place] [address] Dr. Michelle Cali Lymphocytes/100 WBC (Bld) 44.0 % Normal 20.5-60.0 [facility] Comment on above: Performed By: #### C BC #### [facility] [address] [place] [address] Dr. Michelle Cali MANUAL DIFF REQ NO Normal [facility] Comment on above: Performed By: #### C BC #### [facility] [address] [place] [address] Dr. Michelle Cali MCH (RBC) [Entitic mass] 29.7 pg Normal 26.7-34.0 [facility] Comment on above: Performed By: #### C BC #### [facility] [address] [place] [address] Dr. Michelle Cali MCHC (RBC) [Mass/Vol] 34.3 g/dL Normal 29.9-35.2 [facility] Comment on above: Performed By: #### C BC #### [facility] [address] [place] [address] Dr. Michelle Cali MCV (RBC) [Entitic vol] 86.5 fL Normal 81.0-99.0 [facility] Comment on above: Performed By: #### C BC #### [facility] [address] [place] [address] Dr. Michelle Cali MONO # 0.6 103/ul Normal 0.3-0.8 [facility] Comment on above: Performed By: #### C BC #### [facility] [address] [place] [address] Dr. Michelle Cali Monocytes/100 WBC (Bld) 6.7 % Normal 1.7-12.0 [facility] Comment on above: Performed By: #### C BC #### [facility] [address] [place] [address] Dr. Michelle Cali NEUT # 4.2 103/ul Normal 1.4-6.5 [facility] Comment on above: Performed By: #### C BC #### [facility] [address] [place] [address] Dr. Michelle Cali Neutrophils/100 WBC (Bld) 47.2 % Normal 43.0-75.0 [facility] Comment on above: Performed By: #### C BC #### [facility] [address] [place] [address] Dr. Michelle Cali Platelet mean volume (Bld) [Entitic vol] 11.4 fL Normal 9.5-13.5 [facility] Comment on above: Performed By: #### C BC #### [facility] [address] [place] [address] Dr. Michelle Cali PLT 342 103/ul Normal 150-450 [facility] Comment on above: Performed By: #### C BC #### [facility] [address] [place] [address] Dr. Michelle Cali RBC 4.58 106/ul Normal 4.20-5.40 [facility] Comment on above: Performed By: #### C BC #### [facility] [address] [place] [address] Dr. Michelle Cali WBC 9.0 103/ul Normal 4.0-11.0 [facility] Comment on above: Performed By: #### C BC #### [facility] [address] [place] [address] Dr. Michelle Cali PREG HCG QUALon 07-05-2022 , QUAL Negative Normal NEGATIVE [facility] Comment on above: Performed By: #### P REG #### [facility] [address] [place] [address] Dr. Michelle Cali PROF 14(COMP METB)on 022 Albumin [Mass/Vol] 4.4 g/dL Normal 3.4-5.0 [facility] Comment on above: Performed By: #### C BC #### [facility] [address] [place] [address] Dr. Michelle Cali Albumin/Globulin [Mass ratio] 1.1 {ratio} Normal [facility] Comment on above: Performed By: #### C BC #### [facility] [address] [place] [address] Dr. Michelle Cali ALP [Catalytic activity/Vol] 82 U/L Normal 46-116 [facility] Comment on above: Performed By: #### C BC #### [facility] [address] [place] [address] Dr. Michelle Cali ALT [Catalytic activity/Vol] 22 U/L Normal 14-59 [facility] Comment on above: Performed By: #### C BC #### [facility] [address] [place] [address] Dr. Michelle Cali Anion gap [Moles/Vol] 9.3 mmol/L Normal [facility] Comment on above: Performed By: #### C BC #### [facility] [address] [place] [address] Dr. Michelle Cali AST [Catalytic activity/Vol] 17 U/L Normal 15-37 [facility] Comment on above: Performed By: #### C BC #### [facility] [address] [place] [address] Dr. Michelle Cali Bilirubin [Mass/Vol] 0.5 mg/dL Normal 0.2-1.0 [facility] Comment on above: Performed By: #### C BC #### [facility] [address] [address] [address] Michelle Cali Calcium [Mass/Vol] 9.1 mg/dL Normal 8.5-10.1 [facility] Comment on above: Performed By: #### C BC #### [facility] [address] [place] [address] [address] Michelle Cali Chloride [Moles/Vol] 104 mmol/L Normal 98-107 [facility] Comment on above: Performed By: #### C BC #### [facility] [address] [place] [address] Dr. Michelle Cali CO2 [Moles/Vol] 26.8 mmol/L Normal 21.0-32.0 [facility] Comment on above: Performed By: #### C BC #### [facility] [address] [place] [address] Dr. Michelle Cali Creatinine [Mass/Vol] 0.73 mg/dL Normal 0.55-1.02 [facility] Comment on above: Performed By: #### C BC #### [facility] [address] [place] [address] Dr. Michelle Cali EGFR-AF STATELESS >60 Normal >=60 [facility] Comment on above: Performed By: #### C BC #### [facility] [address] [place] [address] Dr. Michelle Cali EGFR-NON AF STATELESS >60 Normal >=60 [facility] Comment on above: Performed By: #### C BC #### [facility] [address] [place] [address] Dr. Michelle Cali Globulin (S) [Mass/Vol] 4.1 g/dL Normal [facility] Comment on above: Performed By: #### C BC #### [facility] [address] [place] [address] Dr. Michelle Cali Glucose [Mass/Vol] 84 mg/dL Normal 74-106 [facility] Comment on above: Performed By: #### C BC #### [facility] [address] [address] [address] Michelle Cali Potassium [Moles/Vol] 3.1 mmol/L Critically low 3.5-5.1 [facility] Comment on above: Performed By: #### C BC #### [facility] [address] [place] [address] [address] Michelle Cali Protein [Mass/Vol] 8.5 g/dL Critically high 6.4-8.2 [facility] Comment on above: Performed By: #### C BC #### [facility] [address] [place] [address] [address] Michelle Cali Sodium [Moles/Vol] 137 mmol/L Normal 136-145 [facility] Comment on above: Performed By: #### C BC #### [facility] [address] [address] [address] Michelle Cali Urea nitrogen [Mass/Vol] 13.0 mg/dL Normal 7.0-18.0 [facility] Comment on above: Performed By: #### C BC #### [facility] [address] [address] [address] Michelle Cali Urea nitrogen/Creatinine [Mass ratio] 17.8 mg/mg Normal [facility] Comment on above: Performed By: #### C BC #### [facility] [address] [address] [address] Michelle Cali Vital Signs Date Time Vital Sign Value Performing Clinician Lianna browne 03-09-2025 13:49-0400 Body mass index (BMI) [Ratio] 27.48 kg/m2 [facility] 03-09-2025 13:49-0400 Body weight 72.63 kg [facility] 03-09-2025 13:49-0400 Diastolic blood pressure 70 mm[Hg] [facility] 03-09-2025 13:49-0400 Systolic blood pressure 110 mm[Hg] [facility] 01-19-2025 11:20-0400 Body mass index (BMI) [Ratio] 29.18 kg/m2 Adan Pimentel MD Work Phone: [facility] 01-19-2025 11:20-0400 Body weight 77.11 kg Adan Pimentel MD Work Phone: [facility] 09-01-2024 14:46-0500 Body mass index (BMI) [Ratio] 29.32 kg/m2 Roosevelt Mauricio DO Work Phone: [facility] 09-01-2024 14:46-0500 Body weight 77.47 kg Roosevelt Mauricio DO Work Phone: [facility] 09-01-2024 14:46-0500 Diastolic blood pressure 74 mm[Hg] Roosevelt Mauricio DO Work Phone: [facility] 09-01-2024 14:46-0500 Systolic blood pressure 114 mm[Hg] Roosevelt Mauricio DO Work Phone: [facility] 08-01-2024 14:48-0500 Body mass index (BMI) [Ratio] 29.94 kg/m2 Agata PRUITT Work Phone: [facility] 08-01-2024 14:48-0500 Body weight 79.11 kg Agata PRUITT Work Phone: [facility] 08-01-2024 14:48-0500 Diastolic blood pressure 82 mm[Hg] Agata PRUITT Work Phone: [facility] 08-01-2024 14:48-0500 Systolic blood pressure 122 mm[Hg] Agata PRUITT Work Phone: [facility] 07-07-2024 10:55-0500 Body mass index (BMI) [Ratio] 33.3 kg/m2 Roosevelt Mauricio DO Work Phone: [facility] 07-07-2024 10:55-0500 Body weight 88 kg Roosevelt Mauricio DO Work Phone: [facility] 07-07-2024 10:55-0500 Diastolic blood pressure 74 mm[Hg] Roosevelt Mauricio DO Work Phone: [facility] 07-07-2024 10:55-0500 Systolic blood pressure 112 mm[Hg] Roosevelt Mauricio DO Work Phone: [facility] 06-29-2024 17:16-0500 Body mass index (BMI) [Ratio] 32.81 kg/m2 Roosevelt Mauricio DO Work Phone: [facility] 06-29-2024 17:16-0500 Body weight 86.69 kg Roosevelt Mauricio DO Work Phone: [facility] 06-29-2024 17:16-0500 Diastolic blood pressure 72 mm[Hg] Roosevelt Mauricio DO Work Phone: [facility] 06-29-2024 17:16-0500 Systolic blood pressure 110 mm[Hg] Roosevelt Mauricio DO Work Phone: [facility] 06-22-2024 16:27-0500 Body mass index (BMI) [Ratio] 33.03 kg/m2 Roosevelt Mauricio DO Work Phone: [facility] 06-22-2024 16:27-0500 Body weight 87.27 kg Roosevelt Mauricio DO Work Phone: [facility] 06-22-2024 16:27-0500 Diastolic blood pressure 68 mm[Hg] Roosevelt Mauricio DO Work Phone: [facility] 06-22-2024 16:27-0500 Systolic blood pressure 110 mm[Hg] Roosevelt Mauricio DO Work Phone: [facility] 06-14-2024 15:03-0500 Body mass index (BMI) [Ratio] 33.09 kg/m2 Roosevelt Mauricio DO Work Phone: [facility] 06-14-2024 15:03-0500 Body weight 87.45 kg Roosevelt Mauricio DO Work Phone: [facility] 06-14-2024 15:03-0500 Diastolic blood pressure 76 mm[Hg] Roosevelt Mauricio DO Work Phone: [facility] 06-14-2024 15:03-0500 Systolic blood pressure 120 mm[Hg] Roosevelt Mauricio DO Work Phone: [facility] 06-07-2024 15:14-0500 Body mass index (BMI) [Ratio] 32.61 kg/m2 Agata Bonsall PA Work Phone: [facility] 06-07-2024 15:14-0500 Body weight 86.18 kg Agata Bonsall PA Work Phone: [facility] 06-07-2024 15:14-0500 Diastolic blood pressure 74 mm[Hg] Agata Susana PA Work Phone: [facility] 06-07-2024 15:14-0500 Systolic blood pressure 116 mm[Hg] Agata Susana PA Work Phone: [facility] 05-24-2024 15:21-0500 Body mass index (BMI) [Ratio] 32.61 kg/m2 Agata Susana PA Work Phone: [facility] 05-24-2024 15:21-0500 Body weight 86.18 kg Agata Susana PA Work Phone: [facility] 05-24-2024 15:21-0500 Diastolic blood pressure 70 mm[Hg] Agata Bonsall PA Work Phone: [facility] 05-24-2024 15:21-0500 Systolic blood pressure 110 mm[Hg] Agata Bonsall PA Work Phone: [facility] 05-10-2024 14:52-0400 Body mass index (BMI) [Ratio] 32.27 kg/m2 Roosevelt Mauricio DO Work Phone: [facility] 05-10-2024 14:52-0400 Body weight 85.28 kg Roosevelt Mauricio DO Work Phone: [facility] 05-10-2024 14:52-0400 Diastolic blood pressure 76 mm[Hg] Roosevelt Mauricio DO Work Phone: [facility] 05-10-2024 14:52-0400 Systolic blood pressure 112 mm[Hg] Roosevelt Mauricio DO Work Phone: [facility] 04-27-2024 15:49-0400 Body mass index (BMI) [Ratio] 31.41 kg/m2 Agata Bonsall PA Work Phone: [facility] 04-27-2024 15:49-0400 Body weight 83.01 kg Agata Bonsall PA Work Phone: [facility] 04-27-2024 15:49-0400 Diastolic blood pressure 68 mm[Hg] Agata Susana PA Work Phone: [facility] 04-27-2024 15:49-0400 Systolic blood pressure 110 mm[Hg] Agata Susana PA Work Phone: [facility] 03-30-2024 15:49-0400 Body mass index (BMI) [Ratio] 30.4 kg/m2 Agata Bonsall PA Work Phone: [facility] 03-30-2024 15:49-0400 Body weight 80.34 kg Agata Susana PA Work Phone: [facility] 03-30-2024 15:49-0400 Diastolic blood pressure 60 mm[Hg] Agata Bonsall PA Work Phone: [facility] 03-30-2024 15:49-0400 Systolic blood pressure 100 mm[Hg] Agata Bonsall PA Work Phone: [facility] Encounters Encounter Date Encounter Type Care Provider Facility Start: 03-09-2025 End: 03-09-2025 Clinisync Result Encounter Roosevelt Mauricio DO Work Phone: [facility] Unsolicited Start: 03-09-2025 End: 03-09-2025 Clinisync Result Encounter Roosevelt Mauricio DO Work Phone: [facility] Unsolicited Start: 03-09-2025 End: 03-09-2025 Office outpatient visit 5 minutes Mauricio Nurse [facility] Comment on above: GA: 9w4d Start: 02-02-2025 End: 02-02-2025 Clinisync Result Encounter Roosevelt Mauricio DO Work Phone: [facility] Unsolicited Start: 02-02-2025 End: 02-02-2025 Clinisync Result Encounter Roosevelt Mauricio DO Work Phone: [facility] Unsolicited Start: 01-19-2025 End: 01-19-2025 Bamboo flowsheet Adan Pimentel MD Work Phone: [facility] Start: 01-19-2025 End: 01-19-2025 Bamboo flowsthong Pimentel MD Work Phone: [facility] Start: 01-19-2025 End: 01-19-2025 Office outpatient new 30 minutes Adan Pimentel MD Work Phone: [facility] Comment on above: Chronic idiopathic u rticaria (Primary Dx) Start: 01-19-2025 End: 01-19-2025 ambulatory ADAN PIMENTEL Not Available Start: 09-01-2024 End: 09-01-2024 ambulatory ROOSEVELT MAURICIO Not Available Start: 09-01-2024 End: 09-01-2024 care visit Roosevelt Mauricio DO Work Phone: [facility] Comment on above: 6 weeks f ollow-up Start: 08-01-2024 End: 08-01-2024 Postop follow up visit related to original px Agata PRUITT Work Phone: [facility] Comment on above: S/P section ; Postop check Start: 08-01-2024 End: 08-01-2024 ambulatory AGATA MEZA Not Available Start: 08-01-2024 End: 08-01-2024 Bamboo flowsheet Agata PRUITT Work Phone: [facility] Start: 08-01-2024 End: 08-01-2024 Bamboo flowsheet Agata PRUITT Work Phone: [facility] Start: 07-13-2024 End: 07-13-2024 Clinisync Result Encounter Roosevelt Mauricio DO Work Phone: [facility] Unsolicited Start: 07-13-2024 End: 07-13-2024 Clinisync Result Encounter Roosevelt Mauricio DO Work Phone: [facility] Unsolicited Start: 07-13-2024 End: 07-13-2024 ambulatory Jesus Tsang Facility:[facility] Start: 07-12-2024 End: 07-12-2024 ambulatory Roosevelt Mauricio Facility:[facility] Start: 07-11-2024 End: 07-11-2024 Clinisync Result Encounter [...] Result Encounter Roosevelt Mauricio DO Work Phone: [facility] Unsolicited Start: 04-08-2024 End: 04-08-2024 Clinisync Result Encounter Roosevelt Silvermanzio DO Work Phone: [facility] Unsolicited Start: 03-30-2024 End: 03-30-2024 flow sheet Agata PRUITT Work Phone: [facility] Comment on above: 24 weeks gestation o f ; Diabetes mellitus screening; Gastroesophageal reflux in Start: 03-30-2024 End: 03-30-2024 ambulatory AGATA MEZA Not Available Start: 03-30-2024 End: 03-30-2024 Bamboo flowsheet Agata PRUITT Work Phone: [facility] Start: 03-30-2024 End: 03-30-2024 Bamboo flowsheet Agata PRUITT Work Phone: [facility] Start: 03-12-2024 End: 03-16-2024 Clinisync Result Encounter Agata PRUITT Work Phone: [facility] External Department Unsolicited Start: 03-12-2024 End: 03-16-2024 Clinisync Result Encounter Agata Susana PA Work Phone: [facility] External Department Unsolicited Start: 03-02-2024 End: 03-02-2024 ambulatory ROOSEVELT MARTÍNEZ Not Available Start: 02-10-2024 End: 02-10-2024 ambulatory AGATA MEZA Not Available Start: 12-04-2022 End: 12-04-[address] SHANTELL SIMON . Facility: Start: 09-18-2022 End: 09-19-[address] JESUS TSANG . Facility: Start: 07-05-2022 End: 07-06-[address] JESUS TSANG . Facility: Start: 05-23-2022 End: 05-23-[address] JESUS TSANG . Facility: Procedures Date Procedure Procedure Detail Performing Clinician Start: 03-09-2025 ALL CBC WITH AUTO DIFF Roosevelt Martínez DO Work Phone: Start: 03-09-2025 Urnls dip stick/tabl et rgnt non-auto w/o micrscp Roosevelt Mauricio DO Work Phone: Start: 02-02-2025 [facility] PREG QUANT HCG Core y Mauricio DO Work Phone: Start: 07-13-2024 ALL CBC WITH AUTO DIFF [...] mnl screen Roosevelt Martínez DO Work Phone: H/O: section S/P sectio n Agata PRUITT Work Phone: Plan of Treatment Date Care Activity Detail Author Start: 04-10-2025 End: 04-10-2025 Patient encounter procedure 04/10/2025 8:50 AM EDT Routine [facility] [address] [place] [address] Roosevelt Martínez DO [address] [place] [address] [facility] Start: 03-27-2025 End: 03-27-2025 Patient encounter procedure [facility] Start: 03-09-2025 End: 03-09-2026 ABO/Rh ABO/Rh Lab Routine Missed menses , unspecified gestational age ([facility]) Expected: 03/09/2025 (Approximate), Expires: 03/09/2026 [facility] Comment on above: Expected: 03/09/2025 (Approximate), Expires: 03/09/2026 Start: 03-09-2025 End: 03-09-2026 Blood type and Indirect antibody screen panel - Blood Type and screen Lab Routine Missed menses , unspecified gestational age ([facility]) Expected: 03/09/2025 (Approximate), Expires: 03/09/2026 [facility] Comment on above: Expected: 03/09/2025 (Approximate), Expires: 03/09/2026 Start: 03-09-2025 End: 03-09-2026 Drugs of abuse panel - Urine by Screen method Rapid drug screen, urine Lab Routine , unspecified gestational age ([facility]) Encounter for supervision of normal first in first trimester ([facility]) Expected: 03/09/2025 (Approximate), Expires: 03/09/2026 [facility] Comment on above: Expected: 03/09/2025 (Approximate), Expires: 03/09/2026 Start: 02-28-2025 End: 05-31-2025 US Pelvis transvaginal US OB transvaginal Imaging Routine Missed menses Positive urine test ([facility]) Expected: 02/28/2025, Expires: 05/31/2025 [facility] Work Phone: Comment on above: Expected: 02/28/2025 , Expires: 05/31/2025 Start: 01-19-2025 End: 01-19-2025 Patient encounter procedure 01/19/2025 11:00 AM EDT Office Visit [facility] [address] [place] [id number] Adan Pimentel MD [address] [facility] [address] [place] [address] Arrived [facility] Comment on above: Arrived Start: 08-01-2024 End: 08-01-2024 Patient encounter procedure 08/01/2024 2:40 PM EST Office Visit [facility] [address] [place] [address] Agata Meza PA [address] [place], [place] [id number] Arrived [facility] Comment on above: Arrived Start: 07-07-2024 End: 07-07-2024 Patient encounter procedure 07/07/2024 10:20 AM EST Routine [facility] [address] [place] [address] Roosevelt Martínez DO [address] [place], [place] [id number] [facility] Start: 06-29-2024 End: 06-29-2024 [...] [facility] [address] [place] [phone] Roosevelt Martínez, [address] [place], [place] [id number] [facility] Start: 06-07-2024 End: 06-07-2024 Patient encounter procedure 06/07/2024 2:50 PM EST Routine [facility] [address] [place] [phone] Agata Meza, PA [address] [place], [place] [id number] [facility] Start: 05-24-2024 End: 05-24-2024 Patient encounter procedure 05/24/2024 2:40 PM EST Routine [facility] [address] [place] [phone] Agata Meza, PA [address] [place] [address] [facility] Start: 05-10-2024 End: 05-10-2024 Patient encounter procedure 05/10/2024 2:50 PM EDT Routine [facility] [address] [place] [address] Roosevelt Martínez, DO [address] [place], [place] [id number] Arrived [facility] Comment on above: Arrived Start: 05-10-2024 End: 05-10-2024 Professional / ancillary services management 05/10/2024 2:00 PM EDT Ancillary Procedure [facility] [address] [place] [phone] [facility] Start: 04-27-2024 End: 04-27-2024 Patient encounter procedure 04/27/2024 3:40 PM EDT Routine [facility] [address] [place] [address] Agata Meza PA [address] [place], [place] [id number] [facility] Start: 04-27-2024 End: 04-27-2025 US for US OB SCAN FOR GROWTH Imaging Routine size inconsistent with dates Expected: 04/27/2024 (Approximate), Expires: 04/27/2025 [facility] Work Phone: Comment on above: Expected: 04/27/2024 (Approximate), Expires: 04/27/2025 Start: 03-30-2024 End: 03-30-2024 Patient encounter procedure [facility] Comment on above: Arrived Start: 03-30-2024 End: 03-30-2025 CBC panel - Blood by Automated count CBC Lab Routine Diabetes mellitus screening Expected: 03/30/2024 (Approximate), Expires: 03/30/2025 [facility] Work Phone: Comment on above: Expected: 03/30/2024 (Approximate), Expires: 03/30/2025 Start: 03-30-2024 End: 03-30-2025 Measurement of glucose 1 hour after glucose challenge for glucose tolerance test Glucose tolerance, 1 hour Lab Routine Diabetes mellitus screening Expected: 03/30/2024 (Approximate), Expires: 03/30/2025 [facility] Comment on above: Expected: 03/30/2024 (Approximate), Expires: 03/30/2025 Bacteria identified in Urine by Culture Urine culture Microbiology Routine Missed menses Ordered: 03/09/2025 [facility] Comment on above: Ordered: 03/09/2025 CBC W Auto Different ial panel - Blood CBC and differential Lab Routine Missed menses , unspecified gestational age ([facility]) Ordered: 03/09/2025 [facility] Comment on above: Ordered: 03/09/2025 Hemoglobin A1c/Hemoglobin.total in Blood Hemoglobin A1c Lab Routine Missed menses , unspecified gestational age ([facility]) Ordered: 03/09/2025 [facility] Comment on above: Ordered: 03/09/2025 Hepatitis B virus surface Ag [Presence] in Serum or Plasma by Immunoassay Hepatitis B surface antigen Lab Routine Missed menses , unspecified gestational age ([facility]) Ordered: 03/09/2025 [facility] Comment on above: Ordered: 03/09/2025 Hepatitis C virus Ab [Presence] in Serum or Plasma by Immunoassay Hepatitis C antibody Lab Routine Missed menses , unspecified gestational age ([facility]) Ordered: 03/09/2025 [facility] Comment on above: Ordered: 03/09/2025 HIV-1/HIV-2 antigen/antibody combination immunoassay HIV-1 and HIV-2 antibodies Lab Routine Missed menses , unspecified gestational age ([facility]) Ordered: 03/09/2025 [facility] Comment on above: Ordered: 03/09/2025 Reagin Ab [Presence] in Serum by RPR RPR Lab Routine Missed menses , unspecified gestational age ([facility]) Ordered: 03/09/2025 [facility] Comment on above: Ordered: 03/09/2025 Rubella antibody, IgG Rubella an tibody, IgG Lab Routine Missed menses , unspecified gestational age ([facility]) Ordered: 03/09/2025 [facility] Comment on above: Ordered: 03/09/2025 US Pelvis transvaginal US OB tra nsvaginal Imaging Routine Missed menses Positive urine test ([facility]) 03/09/2025 1:28 PM EDT [facility] Payers Date Payer Category Payer Medicaid [id number] 2024 Medicaid [id number] 2018 [facility] BCBS [id number] 2018 Unknown BCBS BCBS [id number] 2018-Present [phone] [address] [place] [address] [id number]. [id number] 2001 Unknown [id number] 2.16.840.1.106147.3.579.2. 593 2001 Unknown [id number] 2.16.840.1.660820.3.579.2. 593 2001 Unknown [id number] 2.16.840.1.677821.3.579.2. 593 2001 Unknown [id number] 2.16.840.1.971608.3.579.2. 593 2001 Unknown [id number] 2.16.840.1.788619.3.579.2. 1259 2001 Unknown [id number] 2.16.840.1.336493.3.579.2. 1259 2001 Unknown [id number] 2.16.840.1.828946.3.579.2. 1259 2001 Unknown [id number] 2.16.840.1.780642.3.579.2. 9 2001 Unknown [id number] 2.16.840.1.878860.3.579.2. 1258 2001 Unknown [id number] 2.16.840.1.735545.3.579.2. 9 2001 Unknown [id number] 2.16.840.1.209509.3.579.2. 1258 2001 Unknown [id number] 2.16.840.1.378450.3.579.2. 1258 2001 Unknown [id number] 2.16.840.1.807201.3.579.2. 1258 2001 Unknown [id number] 2.16.840.1.659650.3.579.2. 1258 2001 Unknown [id number] 2.16.840.1.344457.3.579.2. 1258 2001 Unknown [id number] 2.16.840.1.042186.3.579.2. 1258 2001 Unknown [id number] 2.16.840.1.486324.3.579.2. 1258 2001 Unknown [id number] 2.16.840.1.357688.3.579.2. 1259 1959 Self-pay 1959 Unknown [id number] Unknown [id number] 2.16.840.1.922069.3.579.2. 531 Unknown [id number] 2.16.840.1.368434.3.579.2. 531 Social History Date Type Detail Facility Start: 11-19-2023 Tobacco smoking stat [facility] Never smoked tobacco [facility] Start: 11-19-2023 Tobacco use and exposure Smoke less tobacco non-user [facility] Start: 03-02-2024 End: 03-30-2024 Alcoholic beverage intake Lifetime non-drinker (finding) [facility] Start: 11-19-2023 End: 07-03-2025 History of Social function [facility] Start: 11-19-2023 End: 01-19-2025 Tobacco use panel [facility] Start: 04-20-2023 Alcohol Comment Caffeine intake: non e [facility] Start: 10-27-2023 [facility] Start: 2001 Sex assigned at Not on file [facility] Start: 05-10-2024 End: 03-09-2025 Alcoholic beverage intake Current drinker of alcohol (finding) [facility] Clinical Notes 03-30-2024 to 03-09-2025 Aimee Burleson LPN - 03/09/2025 1:30 PM Jyotsna Pimentel MD - 01/19/2025 11:00 AM Ajay Oden LPN - 09/01/2024 2:20 PM EDMOND Niño - 08/01/2024 2:40 PM EST Note Date & Type Note Facility 03-09-2025 History of Presen t illness Narrative Reason for Appointment: Patient ID: Latha Cuevas is a 24 y.o. female who presents for Amenorrhea Patient presents today for a Nurse OB Intake appointment. Patient is 9w4d with a Estimated Date of Delivery: 10/08/25 OB History Para Term AB Living 2 1 1 SAB IAB Ectopic Multiple Live Births # Outcome Date GA Lbr Srinivasa/2nd Weight Sex Type Anes PTL Lv 2 Current 1 Term 07/12/24 39w0d Current Medications: has a current medication list which includes the following prescription(s): mv-min-fe fum-fa-dha. 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 History of shingles 11/23/2023 Resolved Ambulatory Problems Diagnosis Date Noted Acute frontal sinusitis 11/19/2023 Allergic rhinitis 11/19/2023 Chronic adenotonsillitis 11/19/2023 Pharyngitis 11/19/2023 UARS (upper airway resistance syndrome) 11/19/2023 History of 2019 novel coronavirus disease (COVID-19) 11/23/2023 Past Medical History: Diagnosis Date Abnormal Pap smear of cervix Acne vulgaris Acne, unspecified Acute recurrent frontal sinusitis Bilateral thoracic back pain Bloody diarrhea Chest pain Chondromalacia patellae of right knee COVID-19 Cyst of meniscus of right knee De Quervain's tenosynovitis Dermatitis Eczema Fatigue Gastritis without bleeding 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) Hyperplasia of tonsils Hypothyroidism (acquired) Internal derangement of knee, right Meralgia paresthetica of both lower extremities Ovarian cyst Radiculopathy Sebaceous cyst Shingles Sinusitis, acute Tonsillar hypertrophy Family History Problem Relation Name Age of Onset No Known Problems Mother No Known Problems Father No Known Problems Sister No Known Problems Brother Breast cancer Maternal Grandmother Nat Heart disease Maternal Grandfather Diabetes Paternal Grandmother Kathya Heart disease Paternal Grandfather Social History Tobacco Use Smoking status: Never Smokeless tobacco: Never Substance Use Topics Alcohol use: Yes Alcohol/week: 4.0 standard drinks of alcohol Types: 4 Cans of beer per week Comment: Caffeine intake: none Drug use: Never Past Surgical History: Procedure Laterality Date OTHER SURGICAL HISTORY Breast reduction OTHER SURGICAL HISTORY Exp Lap No Known Allergies Vitals: Estimated body mass index is 27.48 kg/m as calculated from the following: Height as of 04/21/23: 5' 4 . Weight as of this encounter: 160 lb 1.9 oz. BP: 110/70 No LMP recorded. Patient is . Assessment/Plan Diagnoses and all orders for this visit: History of shingles Hx of Guillain-San Luis syndrome Missed menses - US OB transvaginal; Future - Type and screen; Future - ABO/Rh; Future - CBC and differential - Hemoglobin A1c - RPR - Rubella antibody, IgG - Hepatitis B surface antigen - Hepatitis C antibody - HIV-1 and HIV-2 antibodies - Urine culture - POCT , urine manually resulted - POCT urinalysis dipstick manually resulted Positive urine test ([facility]) - US OB transvaginal; Future , unspecified gestational age ([facility]) - Type and screen; Future - ABO/Rh; Future - CBC and differential - Hemoglobin A1c - RPR - Rubella antibody, IgG - Hepatitis B surface antigen - Hepatitis C antibody - HIV-1 and HIV-2 antibodies - Rapid drug screen, urine; Future Encounter for supervision of normal first in first trimester ([facility]) - Rapid drug screen, urine; Future Nurse Note: Follow Up: Patient is to have labs drawn at directed and return to office for initial OB appointment with provider. Patient may call office as needed with any concerns or questions. Nurse Visit Completed by: Aimee Burleson LPN documented in this encounter [facility] 01-19-2025 History of Presen t illness Narrative Latha Cuevas is a very pleasant 24 y.o. year old female who comes to the office today with the chief complaint of hives. She used to get hives when she was 13 or 14 and took Cetirizine every day and then got better. She had a baby in Jun and now she has dermatographia and flushing when she eats with every food she eats. She also has rhinorrhea when she eats. She has a history of POTS. If she takes Benadryl she will have flare of her POTS. Cetirizine made her heart rate go up. She has hives every day. Urticaria control test today is 7. She feels temp change will trigger the hives. Cetirizine made her heart rate go up. EXAM The patient appears comfortable in the office today. Lungs are clear to auscultation bilaterally. The oral mucosa is pink and healthy without any lesions or ulcers. The palate elevates in the midline. The nasal mucosa is pink and healthy. There is no epistaxis mucopus or nasal polyposis noted. The nasal septum is approximately in the midline. The skin is clear of any lesions, excoriations, or erythema. IMPRESSION: chronic idiopathic urticaria - I explained to the patient that this is a generally benign condition that has an autoimmune basis and generally responds well to high dose suppressive antihistamine therapy and is usually self limited with 50% of patients going into remission within 3-5 years. I also let the patient know that although allergic triggers are very rare for this condition that physical triggers such as heat, cold, pressure, and vibration are somewhat common but generally also respond well to antihistamine therapy. We agreed that the patient would use high dose non-sedating antihistamine with Either loratadine or levo cetirizine or fexofenadine whichever she tolerates better as previous antihistamine therapy had exacerbated her POTS symptoms. I suggested she up titrate the dose of these medications to 4 tablets daily and follow up in 2 months for reassessment or sooner should problems arise. 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 Exam conducted with a distribution sales representative present. Vitals: Estimated body mass index is [...] CT is scheduled for tomorrow @8:30am @ [facility]. Patient is going to return to work on Thursday and will obtain a return to work note. Patient will continue applying heat. Patient declines control at this time. Patient to return to clinic for routine annual appointment. 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 Exam conducted with a distribution sales representative present. 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 Exam conducted with a distribution sales representative present. 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 Exam conducted with a distribution sales representative present. 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 [...] of: EDMOND Osborn documented in this encounter [facility] 05-24-2024 History of Presen t illness [...] (upper airway resistance syndrome) 11/19/2023 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 History of shingles 11/23/2023 History [...] Eczema Fatigue Gastritis without bleeding 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 [...] Eczema Fatigue Gastritis without bleeding 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 Exam conducted with a distribution sales representative present. 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 Exam conducted with a distribution sales representative present. Vitals: Estimated body mass index is [...] of: EDMOND Osborn documented in this encounter [facility] Evaluation note Diagnosis Third trimester state, [...] weeks follow-up [facility] Diagnosis Chronic idiopathic urticaria- Primary Idiopathic urticaria [facility] Diagnosis History of shingles Hx of Guillain-San Luis syndrome Missed menses Positive urine test ([facility]) , unspecified gestational age ([facility]) Encounter for supervision of normal first in first trimester ([facility]) documented in this encounter [facility] Summary Purpose Family History No Family History Records FoundNo Family History Records FoundNo Family History Records Found Advance Directives No Advanced Directives Records FoundNo Advanced Directives Records FoundNo Advanced Directives Records Found Additional Source Comments INFORMATION SOURCE (unrecogn ized section and content) DATE CREATED AUTHOR 12/09/2022 [facility] DATE CREATED AUTHOR AUTHOR'S ORGANIZ ATION 07/20/2024 [facility] DATE CREATED AUTHOR AUTHOR'S ORGANIZ ATION 01/21/2025 [facility] EPIC Reason for Visit (unrecogniz ed section and content) Reason Comments Routine Visit Reason Comments Post-op Visit Reason Comments Care Reason Comments Hives Pt here today bc she has POTS pt is having a hard time eating, she's itching all the time, break out into hives over just being outside , hives shower, after swimming hives Reason Comments Amenorrhea Care Teams (unrecognized sec tion and content) Marketing Communications Specialist Relationship Specialty Start Date End Date Jesus Tsang MD [address] [place] [address] PCP - General Family Medicine 04/21/23 Marketing Communications Specialist Relationship Specialty Start Date End Date Jesus Tsang MD [address] [place] [address] PCP - General Family Medicine 04/21/23 Marketing Communications Specialist Relationship Specialty Start Date End Date Jesus Tsang MD [address] [facility] [place] [address] PCP - General Family Medicine 04/21/23 Marketing Communications Specialist Relationship Specialty Start Date End Date Jesus Tsang MD [address] [facility] [place] [address] PCP - General Family Medicine 04/21/23 Marketing Communications Specialist Relationship Specialty Start Date End Date Jesus Tsang MD [address] [facility] [place] [address] PCP - General Family Medicine 04/21/23 Marketing Communications Specialist Relationship Specialty Start Date End Date Jesus Tsang MD [address] [facility] [place] [address] PCP - General Family Medicine 04/21/23 Marketing Communications Specialist Relationship Specialty Start Date End Date Jesus Tsang MD [address] [facility] [place] [address] PCP - General Family Medicine 04/21/23 Marketing Communications Specialist Relationship Specialty Start Date End Date Jesus Tsang MD [address] [facility] [place] [address] PCP - General Family Medicine 04/21/23 Marketing Communications Specialist Relationship Specialty Start Date End Date Jesus Tsang MD [address] [facility] [place] [address] PCP - General Family Medicine 04/21/23 Marketing Communications Specialist Relationship Specialty Start Date End Date Jesus Tsang MD [address] [facility] [place] [address] PCP - General Family Medicine 04/21/23 Marketing Communications Specialist Relationship Specialty Start Date End Date Jesus Tsang MD [address] [place] [address] PCP - General Family Medicine 04/21/23 Marketing Communications Specialist Relationship Specialty Start Date End Date Jesus Tsang MD PCP - General Family Medicine 04/21/23 Marketing Communications Specialist Relationship Specialty Start Date End Date Jesus Tsang MD PCP - General Family Medicine 04/21/23 Marketing Communications Specialist Relationship Specialty Start Date End Date Jesus Tsang MD PCP - General Family Medicine 04/21/23 Marketing Communications Specialist Relationship Specialty Start Date End Date Jesus Tsang MD PCP - General Family Medicine 04/21/23 FOR [...] BE BASED ON THE PRIMARY CLINICAL RECORDS. [facility] [employer] provides no warranty or guarantee of the accuracy or completeness of information in this document.
[2025-03-09 18:00] LABS: Cannabinoid Screen Urine NEGATIVE (NEGATIVE); Methamphetamines Screen Urine NEGATIVE (NEGATIVE); Tricyclic Antidepressant Urine NEGATIVE (NEGATIVE)
[2025-03-11 08:09] LABS: Rubella Antibodies, IgG 4.47 index (Immune >0.99)
[2025-03-11 13:09] LABS: Rapid Plasma Reagin, Quant Non Reactive titer (NonRea<1:1)
== END 2025-03-09 15:52 | disposition home or self-care (01) ==
PROVIDERS: PCP Family Medicine; Visit Provider Obstetrics & Gynecology
DX: Z34.01 Encounter for supervision of normal first pregnancy, first trimester (principal); N92.6 Irregular menstruation, unspecified
CPT/HCPCS: 36415; 80307; 83036; 85025; 86592; 86762; 86803; 86850; 86900; 86901; 87086; 87340; 87389

== ENCOUNTER 2025-04-15 01:51 | Emergency (ER) | payer BC, MEDICAID, SELFPAY ==
--- OUTSIDE RECORDS SUMMARY | 2025-04-10 08:57 | XMS_ITS ---
Author Name Auto Generated Organization OHIP Care Team Providers Care Swatch Folder Name Role Phone LEO MARTÍNEZY Attending Unavailable RAMBASEKADAN Attending Unavailable SUSANA, CELINE Attending Unavailable MAURICIO, ROOSEVELT Attending Unavailable MAURICIO, ROOSEVELT Attending Unavailable SUSANA, CELINE Attending Unavailable SUSANA, CELINE Attending Unavailable MAURICIO, ROOSEVELT Attending Unavailable MAURICIO, ROOSEVELT Attending Unavailable MAURICIO, ROOSEVELT Attending Unavailable MAURICIO, ROOSEVELT Attending Unavailable SUSANA, CELINE Attending Unavailable Mauricio, Roosevelt Attending Unavailable Mauricio, Roosevelt Admitting Unavailable Fady Tsang Primary Care Unavailable Mauricio, Roosevelt Attending Unavailable Mauricio, Roosevelt Admitting Unavailable PROBLEMS No Problem Records Found PROCEDURES No Procedure Records Found RESULTS US OB TRANSVAGINAL Observed: 03/09/2025 1:05 PM Status: F Source: [facility] EPIC Order Comment: US OB TRANSVA GINAL No LMP recorded. EXAM: US OB TRANSVAGINAL HISTORY: Dating, history of stillbirth. LMP unknown. COMPARISON: None available. TECHNIQUE: Two-dimensional transvaginal grayscale ultrasound imaging of the pelvis was performed. Color Doppler evaluation of the ovaries was also performed. FINDINGS: The uterus demonstrates a normal homogeneous echotexture. The cervix measures 4.0 cm in length and the cervical os is closed. The right ovary measures 3.9 x 2.6 x 2.7 cm and demonstrates a normal echotexture. There is normal color Doppler flow. There is a presumed corpus luteal cyst. The left ovary measures 2.0 x 1.6 x 1.7 cm and demonstrates a normal echotexture. There is normal color Doppler flow. Trace fluid is present within the cul-de-sac. There is a single, live intrauterine gestation identified with a heart rate of 180 beats per minute and a crown-rump length measurement of 2.7 cm, correlating to a gestational age of 9 weeks 4 days (+/- 6 days). There is no subchorionic hemorrhage visualized. A yolk sac is visualized. IMPRESSION: 1. Single, live intrauterine gestation with today's ultrasound measurements correlating to a gestational age of 9 weeks 4 days (+/- 6 days). DEN by today's ultrasound is 10/08/2025. 2. Normal color Doppler evaluation of the bilateral ovaries. Interpreted by: Electronically signed by CLAUDINE BRYANT II, MD, PHD at 12-Mar-2025 08:20:08 AM [facility] / RADHA NOVAK Collected: 07/13/2024 6:26 AM Status: F Source: [facility] TYPE CODE TESTS RESULT OUT OF RANGE REFERENCE UNITS LAB KBFET ADULT RAT Kleihauer Betke Ratio 0.0020 Ratio Result Comment: PERFORMED BY : [facility] [address] [place] [address] PATHOLOGIST AGRICULTURAL EXTENSION SPECIALIST DANICA Raines Observed: 07/12/2024 12:00 AM Status: F Source: [facility] ----- ------- Specimen: [id number] Received: 07/14/24 Status: YANNA Beard Num: [id number] Spec Type: Surgical Subm Dr: Roosevelt Martínez Tissues: A Placenta - 3rd Trimester (Greater than 28 weeks) (PLACENTA) Procedures: , Gross/Micro L5 ----- ------- Age/ Patient Sex Location Account Attending Physician ----- ------- Latha Steel LABELL [id number] Roosevelt Martínez ----- ------- SPEC NUM: [id number] RECD: 07/14/24 STATUS: YANNA BEARD NUM: [id number] YOUNG: 07/12/24- SUBM DR: Roosevelt Martínez ENTERED: 07/14/24 [facility] DR: Glenda,Lab SPEC TYPE: Surgical DEPT: DORA ANDERS ENTERED BY: [id number] RECV BY: [id number] ORDERED: , Gross/Micro L5 ORDERED: , Gross/Micro L5 Pathological [...] name, and date of : Single MEMBRANES: ----- ------- Specimen: [id number] Received: 07/14/24 Status: YANNA Beard Num: [id number] Spec Type: Surgical Subm Dr: Roosevelt Martínez Tissues: A Placenta - 3rd Trimester (Greater than 28 weeks) (PLACENTA) Procedures: BERNARD Gross/Micro L5 ----- ------- Patient: Latha Steel [id number] (Continued) ----- ------- Specimen: [id number] Received: 07/14/24 (Continued) Gross Description (Continued) Signed (signature on file) Alfonso Cali MD 07/18/24 1754 ----- ------- Specimen: [id number] Received: 07/14/24 Status: YANNA Beard Num: [id number] Spec Type: Surgical Subm Dr: Roosevelt Martínez Tissues: A Placenta - 3rd Trimester (Greater than 28 weeks) (PLACENTA) Procedures: HE/3, Gross/Micro L5 ----- ------- Patient: Latha Steel [id number] (Continued) ----- ------- Specimen: [id number] Received: 07/14/24 (Continued) Gross Description (Continued) Placenta Sac Rupture [...] Rolled membrane, two sections of cord A2-A3 Child Care Lead Teacher sections of placenta (3, , [id number] A) J Microscopic Description Microscopic examinations are performed supporting the above interpretation CPT Codes 42181 ----- ------- ----- ------- Specimen: [id number] Received: 07/14/24 Status: YANNA Beard Num: [id number] Spec Type: Surgical Subm Dr: Roosevelt Martínez Tissues: A Placenta - 3rd Trimester (Greater than 28 weeks) (PLACENTA) Procedures: HE/3, Gross/Micro L5 ----- ------- Patient: Latha Steel [id number] (Continued) ----- ------- Signed (signature on file) Chin-Gianni Cali MD 07/18/24 1754 ALLERGIES DATE TYPE / CODE NAME / CODE REACTION SEVERITY SOURCE 02/05/2021 Drug Allergy/[id number] (SNOMED CT) No Known Allergies/[id number] 88(RXNORM) Unknown [facility] ENCOUNTERS ADMIT/DISCHARGE ACCOUNT NUMBER ADMITTING ENCOUNTER CLASS LOCATION SOURCE 04/10/2025/04/10/20 [id number] Ambulatory Building:[facility] 03/09/2025/03/09/20 [id number] Ambulatory Building:[facility] 03/09/2025/03/09/20 [id number] Ambulatory Building:[facility] 01/19/2025/01/20/20 [id number] Ambulatory Building:[facility] 09/01/2024/09/01/19 [id number] Ambulatory Building:[facility] 08/01/2024/08/01/19 [id number] Ambulatory Building:[facility] 07/13/2024/07/13/20 [id number] [facility] 07/12/2024/07/12/20 [id number] Roosevelt Martínez [facility] 07/07/2024/07/07/20 24 [id number] Ambulatory Building:[facility] 06/29/2024/06/29/20 24 [id number] Ambulatory Building:[facility] 06/22/2024/06/22/20 24 [id number] Ambulatory Building:[facility] 06/14/2024/06/14/20 24 [id number] Ambulatory Building:[facility] 06/07/2024/06/07/20 24 [id number] Ambulatory Building:[facility] 05/24/2024/05/24/20 24 [id number] Ambulatory Building:[facility] 05/10/2024/05/10/20 24 [id number] Ambulatory Building:[facility] 04/27/2024/04/27/20 24 [id number] Ambulatory Building:[facility] EPIC PAYERS ENCOUNTER GUARANTOR PAYER SUBSCRIBER SOURCE 04/10/2025 LATHA ZHONGOB: [place], [place] [address]Nvf: () Primary Insurance:BCBSPolic y Number: [id number] ve Date:2018-11-01 TIFFANIE ROWEDOB: [id number] [address] [address] [facility] EPIC 04/10/2025 Secondary Insurance:[employer] [place] [id number] ve Date:2024-02-18 LATHA ZHONGOB: [id number] [place] [address] [facility] EPIC 03/09/2025 LATHA ZHONGOB: [place], [place] [address]Gpo: (HP) Primary Insurance:BCBSPolic y Number: [id number] ve Date:2018-11-01 TIFFANIE HUTSONOB: [id number] [address] [facility] EPIC 03/09/2025 Secondary Insurance:[employer] [place]: [id number] ve Date:2024-02-18 LATHA ZHONGOB: [id number] [place] [id number] [facility] EPIC 03/09/2025 LATHA ZHONGOB: [place] [address]Tel: (HP) Primary Insurance:BCBSPolic y Number: [id number] ve Date:2018-11-01 TIFFANIE HUTSONOB: [id number] [address] [facility] EPIC 03/09/2025 Secondary Insurance:[employer] [place]: [id number] ve Date:2024-02-18 LATHA ZHONGOB: [id number] [address] [facility] EPIC 01/19/2025 LATHA ZHONGOB: [place], [place] [address]Emy: (HP) Primary Insurance:BCBSPolic y Number: [id number] ve Date:2018-11-01 TIFFANIE HUTSONOB: [id number] [address] [facility] EPIC 01/19/2025 Secondary Insurance:[employer] [place]: [id number] ve Date:2024-02-18 LATHA ZHONGOB: [id number] [address] [facility] EPIC 09/01/2024 LATHA ZHONGOB: [address] [address]Dcd: (HP) Primary Insurance:BCBSPolic y Number: [id number] ve Date:2018-11-01 TIFFANIE HUTSONOB: [id number] [address] [facility] EPIC 09/01/2024 Secondary Insurance:[employer]: [id number] ve Date:2024-02-18 LATHA ZHONGOB: [id number] [address] [facility] EPIC 08/01/2024 LATHA Yanick DURANTGDOB: [address] [address]Vsi: (HP) Primary Insurance:BCBSPolic y Number: [id number] ve Date:2018-11-01 TIFFANIE HUTSONOB: [id number] [address] [facility] EPIC 08/01/2024 Secondary Insurance:[employer] [place]: [id number] ve Date:2024-02-18 LATHAKADEN DURANTLEONIEOB: [id number] [address] [facility] EPIC 07/13/[address] [place], [place] [address]Tel: (HP) Primary Insurance:Self PayPolicy Number: Effective Date:2024-07-13 [facility] 07/12/[address] [place] [address]Apy: (HP) Primary Insurance:Self PayPolicy Number: Effective Date:2024-07-12 [facility] 07/07/2024 LATHAKADEN DURANTLEONIEOB: [address] [address]Vep: (HP) Primary Insurance:BCBSPolic y Number: [id number] ve Date:2018-11-01 TIFFANIE HUTSONOB: [id number] [address] [facility] EPIC 07/07/2024 Secondary Insurance:[employer] [place]: [id number] ve Date:2024-02-18 LATHA DURANTLEONIEOB: [id number] [address] [facility] EPIC 06/29/2024 LATHA Yanick BHARGAVGDOB: [place] [id number]: (HP) Primary Insurance:BCBSPolic y Number: [id number] ve Date:2018-11-01 TIFFANIE HUTSONOB: [id number] [facility] EPIC 06/29/2024 Secondary Insurance:[employer] [place]: [id number] ve Date:2024-02-18 LATHA Yanick TREVINOB: [id number] [address] [facility] EPIC 06/22/2024 LATHAMAMTA DURANTGDOB: [place], [place] [address]Tel: (HP) Primary Insurance:BCBSPolic y Number: [id number] ve Date:2018-11-01 TIFFANIE HUTSONOB: [id number] [address] [facility] EPIC 06/22/2024 Secondary Insurance:[employer] [place]: [id number] ve Date:2024-02-18 LATHA E TREVINOB: [id number] [address] [facility] EPIC 06/14/2024 LATHA Yanick TREVINOB: [place] [id number]: (HP) Primary Insurance:BCBSPolic y Number: [id number] ve Date:2018-11-01 TIFFANIE HUTSONOB: [id number] [address] [facility] EPIC 06/14/2024 Secondary Insurance:[employer] [place] Number: [id number] ve Date:2024-02-18 LATHAKADEN DURANTLEONIEOB: [id number] [address] [facility] EPIC 06/07/2024 LATHA DURANTGDOB: [place] [id number]: (HP) Primary Insurance:BCBSPolic y Number: [id number] ve Date:2018-11-01 TIFFANIE WOODS: [id number] [address] [facility] EPIC 06/07/2024 Secondary Insurance:[employer]: [id number] ve Date:2024-02-18 LATHA ZHONGOB: [id number] [address] [facility] EPIC 05/24/2024 LATHA DURANTGDOB: [place] [id number]: (HP) Primary Insurance:BCBSPolic y Number: [id number] ve Date:2018-11-01 TIFFANIE WOODS: [id number] [address] [facility] EPIC 05/24/2024 Secondary Insurance:[employer] Number: [id number] ve Date:2024-02-18 LATHA ZHONGOB: [id number] [address] [facility] EPIC 05/10/2024 LATHA DURANTGDOB: [place] [id number]: (HP) Primary Insurance:BCBSPolic y Number: [id number] ve Date:2018-11-01 TIFFANIE HUTSONOB: [id number] [address] [address] [facility] EPIC 05/10/2024 Secondary Insurance:[place] Number: [id number] ve Date:2024-02-18 LATHA ZHONGOB: [id number] [place] [id number] [facility] EP[facility] 04/27/2024 LATHA ZHONGOB: [id number] [place], [place] [address]Tel: () Primary Insurance:BCBSPolic y Number: [id number] ve Date:2018-11-01 TIFFANIE HAYESEDOB: [id number] [address] [address] [facility] EP[facility] 04/27/2024 Secondary Insurance[place] Number: [id number] ve Date:2024-01-02 LATHA ZHONGOB: [id number] [place] [id number] [facility] EPIC
[2025-04-15 02:00] VITALS: BP 147/81; PULSE 62; TEMP 36.4; O2SAT 100; BMI 28.3
--- NOTE | 2025-04-15 02:20 | ED.ABDPAIN1 ---
HPI - Abdominal Pain General Chief Complaint: Abdominal Pain Stated Complaint: 15 WEEKS PREG/ THINKS A CYCST RUPTURED Time Seen by Provider: 04/15/25 02:16 Source: patient Mode of arrival: walk-in Limitations: no limitations History of Present Illness HPI narrative: 15 weeks . acute pain RLQ about 20 minutes ago. Past history of ovarian cyst. states she did have some spotting of old brown blood in the past week. Seen by OB and US looked good. Was at work tonight when she developed the pain. Past history of ruptured ovarian cyst Related Data Allergies Allergy/AdvReac Type Severity Reaction Status Date / Time cephalexin AdvReac Intermediate Vomiting Verified 04/15/25 01:59 Review of Systems ROS Status of ROS 10 or more systems reviewed and unremarkable except as noted in history and below PFSH PFSH Social History Smoking status: Never smoker Little interest or pleasure in doing things: not at all Feeling down, depressed, or hopeless: not at all Exam Constitutional Vital Signs, click to edit/add: Last Vital Signs Temp 97.5 F L 04/15/25 02:00 Pulse 62 04/15/25 02:00 Resp 18 04/15/25 02:00 BP 147/81 H 04/15/25 02:00 Pulse Ox 100 04/15/25 02:00 O2 Del Method Room Air 04/15/25 02:00 Common normals: average body habitus, oriented x3, no limitations, healthy appearing, alert and well nourished General appearance: anxious (mild) HENMT Common normals: normocephalic and head/scalp atraumatic Eye Common normals: EOMs intact bilaterally and conjunctivae normal Respiratory Common normals: normal respiratory effort, no retractions, no use of accessory muscles and clear to auscultation bilaterally Cardio Common normals: regular rate, regular rhythm, S1 normal heart sound and S2 normal heart sound GI Common normals: Normal to inspection, nondistended, normoactive bowel sounds present and soft to palpation Other: mild RLQ tenderness Extremity Common normals: normal to inspection and full ROM Neuro Common normals: oriented x3, CN's II-XII intact bilaterally, moves all extremities and no focal motor deficits Psych Appearance: grossly normal Course Vital Signs Vital signs: Vital Signs Temperature 97.5 F L 04/15/25 02:00 Pulse Rate 62 04/15/25 02:00 Respiratory Rate 18 04/15/25 02:00 Blood Pressure 147/81 H 04/15/25 02:00 Pulse Oximetry 100 04/15/25 02:00 Oxygen Delivery Method Room Air 04/15/25 02:00 Temperature 97.5 F L 04/15/25 02:00 Pulse Rate 62 04/15/25 02:00 Respiratory Rate 18 04/15/25 02:00 Blood Pressure 147/81 H 04/15/25 02:00 Pulse Oximetry 100 04/15/25 02:00 Oxygen Delivery Method Room Air 04/15/25 02:00 MDM - Abdominal Pain MDM Narrative Medical decision making narrative: patient 15 weeks . recent visit to her OB and US look good. Acute right lower/pelvic pain. past history of ruptured cyst. Exam with only mild RLQ tenderness. labs unremarkable and quant. HCG noted. Patient nearly completely resolved without intervention. patient informed likely possible ruptured cyst. Pelvic exam not performed as the pain was nearly resolved. Discharged to follow up with her doctor Lab Data Labs: Lab Results 04/15/25 04/15/25 Range/Units 02:02 02:32 WBC 11.5 H (4.0-11.0) 10^3/uL RBC 4.29 (4.20-5.40) 10^6/uL Hgb 12.8 (12.0-16.0) g/dL Hct 36.5 (36.0-48.0) % MCV 85.1 (81.0-99.0) fL MCH 29.8 (26.7-34.0) pg MCHC 35.1 (29.9-35.2) g/dL RDW 12.7 (11.0-15.0) % Plt Count 256 (150-450) 10^3/uL MPV 11.2 (9.5-13.5) fL Neut % (Auto) 58.0 (43.0-75.0) % Lymph % (Auto) 34.8 (20.5-60.0) % [place] % (Auto) 5.9 (1.7-12.0) % Eos % (Auto) 0.6 L (0.9-7.0) % Baso % (Auto) 0.4 (0.2-2.0) % Neut # (Auto) 6.7 H (1.4-6.5) 10^3/uL Lymph # (Auto) 4.0 H (1.2-3.8) 10^3/uL [place] # (Auto) 0.7 (0.3-0.8) 10^3/uL Eos # (Auto) 0.1 (0.0-0.7) 10^3/uL Baso # (Auto) 0.1 (0.0-0.1) 10^3/uL Abs Immat Gran (auto) 0.03 (0.00-0.03) 10^3/uL Imm/Tot Granulo (auto) 0.3 (0.0-0.5) % Sodium 134 L (136-145) mmol/L Potassium 3.2 L (3.5-5.1) mmol/L Chloride 101 (98-107) mmol/L Carbon Dioxide 21.3 (21.0-32.0) mmol/L Anion Gap 14.9 BUN 7.0 (7.0-18.0) mg/dL Creatinine 0.66 (0.55-1.02) mg/dL Est GFR ( Amer) >60 (>=60 mL/min/1.73m^2) Est GFR (Non-Af Amer) >60 (>=60 mL/min/1.73m^2) BUN/Creatinine Ratio 10.6 Glucose 96 (74-106) mg/dL Calcium 9.0 (8.5-10.1) mg/dL HCG, Quant 00737 mIU/mL Urine Color Yellow (YELLOW) Urine Clarity Clear (CLEAR) Urine pH 6.0 (5.0-9.0) Ur Specific [place] >=1.030 A (1.005-1.025) Urine Protein Negative (NEG/TRACE) mg/dL Urine Glucose (UA) Negative (NEGATIVE) mg/dL Urine Ketones Negative (NEGATIVE) mg/dL Urine Occult Blood Negative (NEGATIVE) Urine Nitrite Negative (NEGATIVE) Urine Bilirubin Negative (NEGATIVE) Urine Urobilinogen 0.2 (0.2-1.0) EU/dL Ur Leukocyte Esterase Negative (NEGATIVE) Urine RBC 0-2 (0-2) #/HPF Urine WBC 2-5 A (NONE SEEN) #/HPF Ur Squamous Epith Cells Few A (NONE/RARE) #/LPF Urine Crystals None seen (None Seen) #/HPF Urine Bacteria Small A (NONE SEEN) #/HPF Urine Casts None seen (NONE SEEN) #/LPF Urine Mucus Large A (NONE SEEN) Ur Culture Indicated? Yes-[facility] [place] Discharge Plan Discharge Chief Complaint: Abdominal Pain Clinical Impression: Pelvic pain during Patient Disposition: Home, Self-Care Print Language: Cambodian Instructions: Abdominal Pain in (ED) Additional Instructions: drink plenty of fluids Referrals: Fady Tsang MD [Primary Care Provider, Family Practice] - 1 week
[2025-04-15 02:32] LABS: Hematocrit 36.5 % (36.0-48.0); Hemoglobin 12.8 g/dL (12.0-16.0); Immature Granulocytes Abs Auto 0.03 10^3/uL (0.00-0.03); Immature Granulocytes Pct Auto 0.3 % (0.0-0.5); Lymphocytes Absolute Auto 4.0 10^3/uL (1.2-3.8); Mean Corpuscular HGB Conc 35.1 g/dL (29.9-35.2); Mean Corpuscular Hemoglobin 29.8 pg (26.7-34.0); Mean Corpuscular Volume 85.1 fL (81.0-99.0); Platelet Count 256 10^3/uL (150-450); Red Blood Count 4.29 10^6/uL (4.20-5.40); White Blood Count 11.5 10^3/uL (4.0-11.0)
[2025-04-15 02:41] LABS: Glucose Urine UA NEGATIVE (NEGATIVE)
[2025-04-15 02:48] LABS: Cast Seen? NONE SEEN #/LPF (NONE SEEN); Crystals Seen? None Seen #/HPF (None Seen); Urine Culture Indicated YES-FRMC
[2025-04-15 03:04] LABS: Anion Gap 14.9; Blood Urea Nitrogen 7.0 mg/dL (7.0-18.0); Calcium 9.0 mg/dL (8.5-10.1); Carbon Dioxide 21.3 mmol/L (21.0-32.0); Chloride 101 mmol/L (98-107); Estimated GFR (African America >60 (>=60 mL/min/1.73m^2); Estimated GFR (Non-African Ame >60 (>=60 mL/min/1.73m^2); Glucose 96 mg/dL (74-106); Potassium 3.2 mmol/L (3.5-5.1); Sodium 134 mmol/L (136-145)
[2025-04-15 04:05] VITALS: BP 127/82; PULSE 72; O2SAT 100
[2025-04-17 20:08] LABS: Neisseria gonorrhoeae, NAA Negative (Negative)
== END 2025-04-15 04:08 | disposition home or self-care (01) ==
PROVIDERS: Emergency Provider Internal Medicine; PCP Family Medicine
DX: O99.891 Other specified diseases and conditions complicating pregnancy (principal); R10.2 Pelvic and perineal pain; Z3A.15 15 weeks gestation of pregnancy
CPT/HCPCS: 36415; 80048; 81001; 84702; 85025; 87086; 87210; 87491; 87591; 99283

== ENCOUNTER 2025-04-26 05:59 | Emergency (ER) | payer BC, MEDICAID, SELFPAY ==
--- OUTSIDE RECORDS SUMMARY | 2025-04-15 20:09 | XMS_ITS | Continuity of Care Document ---
Author Organization [facility] Address [address] [place] [address] Phone Care Team Providers Care Deputy Sheriff Generalist/Bailiff Name Role Phone Maxx Chan MD Attending Provider Care Teams Patient Care Team Team Status: Inactive Member Role Status Dates Maxx Chan MD Attending Provider Active St art: April 15, 2025 End: April 15, 2025 Chief Complaint and Reason for Visit Chief Complaint Admit Date Unknown April 15, 2025 2:32am Allergies, Adverse Reactions, Alerts Allergen Type Severity Reaction Last Updated Verified Status No Known Allergies Allergy Unknown February 05, 2021 3:50p m Yes Active Social History Smoking Status Status Start Date End Date Date of Observa tion Never smoked tobacco (finding) February 07, 2021 8:23am Observation Status Observation Response Date of Response Legal Sex Female (finding) Sex Assigned At Female 2000 Family History Relationship Condition Age at Onset Recorded Date/T blake Not Specified No pertinent family history Unknown Medications No known medications Procedures Procedure Date Performed Status Urine Culture April 15, 2025 active Advance Directives Advance Directive Response Recorded Date/ Time Advance Directives No February 02 11:16am Insurance Providers Guarantor Latha Patrickg Address [address] [address] Contact Info. Home Phone: Payer Policy Id Subscriber's Name Subscriber Id Effectiv e Date Expiration Date Valentin CASAS [id number] Job Keith [id number] Encounters Encounter Location(s) Arrival/Admit Date Discharge/Depart Date Provider(s) Departed Referred -[facility] April 15, 2025 2:32am April 15, 2025 2:33am Maxx Chan MD Plan of Treatment Future Tests Future scheduled test information is unavailable Pending Tests Test Name Ordered Date Scheduled Date Urine Culture April 15, 2025 2:32am Future Visits Future appointment information is unavailable Referrals to Other Providers Referral information is unavailable Future Procedures Procedure Name Ordered Date Scheduled Date Urine Culture April 15, 2025 1:07pm Sept emb2024 2:32am Future Medications Future medication information is unavailable Patient Instructions Patient instructions are unavailable
--- OUTSIDE RECORDS SUMMARY | 2025-04-26 06:04 | XMS_ITS | Encounter Summary ---
Author Organization [facility] Address [address] [place] [address] Care Team Providers Care Defensive Line Coach Name Role Phone Fady Tsang MD Primary Care Provider [phone] Encounter Details Date Type Department Care Team ([facility] Contact Info) Description 12/29/2023 Abstract [facility] [address] [place] [address] Mirtha Lindquist LPN [address] [id number] Social History Tobacco Use Types Packs/Day Years [...] Department Care Team (Late Contact Info) Description 05/09/2025 8:30 AM EDT Routine [facility] [address] [place] [address] Agata Ross PA [address] [place], [place] [phone] documented as of this encounter Visit Diagnoses Not on filedocumented in this encounter Care Teams Defensive Line Coach Relationship Specialty Start Date End Date Fady Tsang MD [address] [place] [address] PCP - General Family Medicine 04/21/23 documented as of this encounter
--- OUTSIDE RECORDS SUMMARY | 2025-04-26 06:05 | XMS_ITS | Encounter Summary ---
Author Organization [facility] Address [address] [facility] [place] [address] Care Team Providers Care Radio Time Sales Supervisor Name Role Phone Fady Tsang MD Primary Care Provider +- Encounter Details Date Type Department Care Team (Late Contact Info) Description 07/07/2024 Abstract [facility]PH[facility] [address] [place] [place] [phone] Amarilis Oden LPN Social History Tobacco Use [...] Info) Description 05/09/2025 8:30 AM EDT Routine [facility] [address] [place] [place] [phone] Agata Ross PA [address] [place], [place] [phone] documented as of this encounter Visit Diagnoses Not on filedocumented in this encounter Care Teams Radio Time Sales Supervisor Relationship Specialty Start Date End Date Fady Tsang MD [address] [facility] [place] [address] PCP - General Family Medicine 04/21/23 documented as of this encounter
--- OUTSIDE RECORDS SUMMARY | 2025-04-26 06:05 | XMS_ITS | Encounter Summary ---
Author Organization [facility] Address [address] [facility] [place] [address] Care Team Providers Care Newspaper Delivery Counselor Name Role Phone Fady Tsang MD Primary Care Provider [phone] Encounter Details Date Type Department Care Team ([facility] Contact Info) Description 11/23/2023 Abstract NOM[facility]andelario Santos Otolaryngology [address] [facility] [address] [place] [address] Kareen Alicea, LAURA [address] [facility] [address] [place], [place] [phone] Social History Tobacco Use Types Packs/Day Years [...] Info) Description 05/09/2025 8:30 AM EDT Routine [facility] Glenda OBGYN [address] [facility] [place] [phone] Agata Ross PA [address] [facility] [address] [place] [phone] documented as of this encounter Visit Diagnoses Not on filedocumented in this encounter Care Teams Newspaper Delivery Counselor Relationship Specialty Start Date End Date Fady Tsang MD [address] [place] [address] PCP - General Family Medicine 04/21/23 documented as of this encounter
--- OUTSIDE RECORDS SUMMARY | 2025-04-26 06:05 | XMS_ITS | Encounter Summary ---
Author Organization [facility] Address [address] [facility] [place] [address] Care Team Providers Care Field Tech Name Role Phone Fady Tsang MD Primary Care Provider [phone] Encounter Details Date Type Department Care Team ([facility] Contact Info) Description 02/12/2024 Abstract NOMCandelario STEPHENSON [address] [facility] [place] [address] Mirtha Lindquist LPN [address] [place] [phone] Social History Tobacco Use Types Packs/Day Years [...] 8:30 AM EDT Routine NOMCandelario STEPHENSON [address] [facility] [place] [address] Agata Ross PA [address] [facility] [address] [place], [place] [address] documented as of this encounter Visit Diagnoses Not on filedocumented in this encounter Care Teams Field Tech Relationship Specialty Start Date End Date Fady Tsang MD [address] [place] [address] PCP - General Family Medicine 04/21/23 documented as of this encounter
--- OUTSIDE RECORDS SUMMARY | 2025-04-26 06:05 | XMS_ITS | Encounter Summary ---
Author Organization [facility] Address [address] [facility] [place] [address] Care Team Providers Care Dog Or Animal Sitter Name Role Phone Fady Tsang MD Primary Care Provider [phone] Encounter Details Date Type Department Care Team ([facility] Contact Info) Description 07/19/2024 Abstract MARIAN STEPHENSON [address] [facility] [place] [phone] Pan Martínez DO [address] [facility] [address] Joao Doshi, [facility]11 Social History Tobacco Use Types Packs/Day Years [...] 8:30 AM EDT Routine MARIAN STEPHENSON [address] [facility] [place] [phone] Agata Ross PA [address] [facility] [address] [place], [place] [address] documented as of this encounter Visit Diagnoses Not on filedocumented in this encounter Care Teams Dog Or Animal Sitter Relationship Specialty Start Date End Date Fady Tsang MD [address] [place] [address] PCP - General Family Medicine 04/21/23 documented as of this encounter
--- OUTSIDE RECORDS SUMMARY | 2025-04-26 06:05 | XMS_ITS | Encounter Summary ---
Author Organization [facility] Address [address] [facility] [place] [address] Care Team Providers Care Nocturnist Name Role Phone Fady Tsang MD Primary Care Provider [phone] Encounter Details Date Type Department Care Team (Late Contact Info) Description 03/02/2024 Clinisync Result Encounter [facility] External Department Unsolicited Agata Meza PA [address] [facility] [address] [place], [facility]11 Social History Tobacco Use Types Packs/Day Years [...] Description 05/09/2025 8:30 AM EDT Routine NOMCandelario Doshi OBGYN [address] [facility] [place] [address] Agata Meza PA [address] [facility] [address] [place] [facility]11 documented as of this encounter Procedures Procedure Name Priority Date/Time Associated Diagnosis Comments US OB CERVICAL LENGTH 03/02/2024 4:03 PM EDT documented in this encounter Results * US OB CERVICAL LENGTH (03/02/2024 4:03 PM EDT) Anatomical Region Laterality Modality Other 03/02/2024 4:03 PM EDT Narrative 03/02/2024 4:06 [place] [address] Ultrasound Report Signed Patient: LATHA STEEL MR#: [id number] : 2000 Acct:[id number] Age/Sex: 23 / F ADM Date: 03/02/24 Loc: [facility] Attending Dr: Agata Meza Ordering Physician: Agata Meza Date of Service: 03/02/24 Procedure(s): US OB cervical length Accession Number(s): [id number] cc: Agata Meza; Fady Tsang M.D. [place] [address] Patient Name: LATHA STEEL MRN: [id number] date: 2000 Sex: F Assigned Patient Location: [facility] Current Patient Location: [facility] Accession/Order Number: [id number] Exam Date: 03/02/2024 14:41 Report Date: 03/02/2024 [...] Signed By: 03/02/24 1606 DD/ 02 TD/TT: Power Systems Engineer: Procedure Note Radiology, Radiologist, MD - 03/02/2024 [place] [address] Ultrasound Report Signed Patient: LATHA STEEL EMR#: [id number] : 2000Acct:[id number] Age/Sex: 23 / FADM Date: 03/02/24 Loc: [facility] Attending Dr: Agata Meza Ordering Physician: Agata Meza Date of Service: 03/02/24 Procedure(s): US OB cervical length Accession Number(s): [id number] cc: Agata Meza; Fady Tsang M.D. The [address] [address] Patient Name: LATHA STEEL MRN: [id number] date: 2000 Sex: F Assigned Patient Location: [facility] Current Patient Location: [facility] Accession/Order Number: [id number] Exam Date: 03/02/2024 14:41 Report Date: 03/02/2024 [...] M.D. Signed By:03/02/24 1606 DD/ 02 TD/TT: Power Systems Engineer: us Agata PRUITT [facility] Final Result documented in this encounter Visit Diagnoses Not on filedocumented in this encounter Care Teams Nocturnist Relationship Specialty Start Date End Date Fady Tsang MD [address] [place] [address] PCP - General Family Medicine 04/21/23 documented as of this encounter
--- OUTSIDE RECORDS SUMMARY | 2025-04-26 06:05 | XMS_ITS | Encounter Summary ---
Author Organization [facility] Address [address] [facility] [place] [address] Care Team Providers Care Clinical Biostatistician Name Role Phone Fady Tsang MD Primary Care Provider [phone] Encounter Details Date Type Department Care Team ([facility] Contact Info) Description 07/12/2024 Abstract MARIAN STEPHENSON [address] [facility] [place] [phone] Pan Martínez DO [address] [facility] [address] [place] D[place], [facility]11 Social History Tobacco Use Types Packs/Day [...] 8:30 AM EDT Routine MARIAN STEPHENSON [address] [facility] [place] [phone] Agata Ross PA [address] [facility] [address] [place], [place] [address] documented as of this encounter Visit Diagnoses Not on filedocumented in this encounter Care Teams Clinical Biostatistician Relationship Specialty Start Date End Date Fady Tsang MD [address] [place] [address] PCP - General Family Medicine 04/21/23 documented as of this encounter
--- OUTSIDE RECORDS SUMMARY | 2025-04-26 06:05 | XMS_ITS | Encounter Summary ---
Author Organization [facility] Address [address] [facility] [place] [address] Care Team Providers Care Motorcycle Mechanic Apprentice Name Role Phone Fady Tsang MD Primary Care Provider [phone] Encounter Details Date Type Department Care Team ([facility] Contact Info) Description 03/03/2024 Abstract MARIAN STEPHENSON [address] [facility] [place] [address] Pan Martínez DO [address] [facility] [address] Joao Doshi, [facility]11 Social History Tobacco Use Types Packs/Day Years [...] 8:30 AM EDT Routine MARIAN STEPHENSON [address] [facility] [place] [address] Agata Ross PA [address] [facility] [address] [place], [place] [address] documented as of this encounter Visit Diagnoses Not on filedocumented in this encounter Care Teams Motorcycle Mechanic Apprentice Relationship Specialty Start Date End Date Fady Tsang MD [address] [place] [address] PCP - General Family Medicine 04/21/23 documented as of this encounter
--- OUTSIDE RECORDS SUMMARY | 2025-04-26 06:05 | XMS_ITS | Encounter Summary ---
Author Organization [facility] Address [address] [facility] [place] [address] Care Team Providers Care Electronic Warfare Technician Name Role Phone Fady Tsang MD Primary Care Provider [phone] Encounter Details Date Type Department Care Team (Late Contact Info) Description 12/18/2023 Clinisync Result Encounter [facility] External Department Unsolicited Roosevelt Martínez DO [address] [facility] [address] Joao Doshi, [facility]11 Social History Tobacco Use Types Packs/Day [...] 05/09/2025 8:30 AM EDT Routine NOMCandelario Doshi OBGYAnette [address] [facility] [place] [address] Agata Ross PA [address] [facility] [address] [place], [place] [phone] documented as of this encounter Procedures Procedure [...] SCREEN (12/18/2023 12:04 PM EDT) Pathologist [facility] HBSAG SCREEN Negative Negative [facility] Comment: Performed at: [facility] [address] [id number] Asphalt Still Operator: Samson Ibarra PhD, Phone: [phone] 12/18/2023 12:0 4 PM EDT 12/18/2023 12:10 PM EDT Narrative THAIS - 12/19/2023 12:11 PM EDT us Roosevelt Martínez DO LAB BLOOD ORDERABLES Final Resul t [facility] * RAPID PLASMA REAGIN, QUANT (12/18/2023 12:04 PM EDT) Pathologist [facility] RAPID PLASMA REAGIN, QUANT Non Reactive NonRea<1: 1 titer TB Comment: Please Note: This test does not meet current guidelines for screening and diagnosis of syphilis. This test is intended for following treatment response in patients being treated for syphilis infection. To screen for syphilis infection, a reflex cascade that includes both RPR and a treponema-specific assay should be utilized, such as Treponema pallidum (Syphilis) Screening [place] (945656) or Rapid Plasma Reagin (RPR) Test With Reflex to Quantitative RPR and Confirmatory Treponema pallidum Antibodies (720014). Performed at: [address] [id number] Asphalt Still Operator: Samson Ibarra PhD, Phone: [phone] 12/18/2023 12:0 4 PM EDT 12/18/2023 12:10 PM EDT Narrative [facility] - 12/19/2023 12:11 PM EDT [facility] LAB BLOOD ORDERABLES Final Resul t Performing Organization Address [facility] Co de Phone Number [facility] TB * HCV ANTIBODY RFX TO QUANT PCR (12/18/2023 12:04 PM EDT) Pathologist [facility] HCV AB Non Reactive Non Reactive [facility] INTERPRETATION: Comment . [facility] Comment: Not infected with HCV unless early or acute infection is suspected (which may be delayed in an immunocompromised individual), or other evidence exists to indicate HCV infection. 12/18/2023 12:0 4 PM EDT 12/18/2023 12:10 PM EDT Narrative [facility] - 12/19/2023 8:12 AM EDT [facility] LAB BLOOD ORDERABLES Final Resul t Performing Organization Address City/[facility]/ZIP Co de Phone Number [facility] TB * HIV AB/P24 AG WITH REFLEX (12/18/2023 12:04 PM EDT) Pathologist [facility] HIV AB/P24 AG SCREEN Non Reactive Non Reactive [facility] Comment: HIV Negative HIV-1/HIV-2 antibodies and HIV-1 p24 antigen were NOT detected. There is no laboratory evidence of HIV infection. Performed at: [address] [id number] Asphalt Still Operator: Samson Ibarra PhD, Phone: [phone] 12/18/2023 12:0 4 PM EDT 12/18/2023 12:10 PM EDT Narrative CLIN[facility] - 12/19/2023 8:12 AM EDT Roosevelt Mauricio DO LAB BLOOD ORDERABLES Final Resul t Performing Organization Address [facility]/ZIP Co de Phone Number [facility] * ALL RUBELLA IGG AB (12/18/2023 12:04 PM EDT) RUBELLA ANTIBODIES, IGG 5.47 Immune >0.99 index TB Comment: Non-immune <0.90 Equivocal 0.90 - 0.99 Immune >0.99 Performed at: [address] [id number] Asphalt Still Operator: Samson Ibarra PhD, Phone: [phone] 12/18/2023 12:0 4 PM EDT 12/18/2023 12:10 PM EDT Narrative CLIN[facility] - 12/19/2023 8:12 AM EDT Roosevelt Mauricio DO CLINIS[facility] Final Result Performing Organization Address [facility] Co de Phone Number [facility] * ALL TYPE AND SCREEN (12/18/2023 12:04 PM EDT) BLOOD TYPE O Positive [facility] ANTIBODY SCREEN NEGATIVE [facility] 12/18/2023 12:0 4 PM EDT 12/18/2023 12:10 PM EDT Narrative CLINIS[facility] - 12/18/2023 1:04 PM EDT The [facility] , Roosevelt Mauricio DO CLINISYNC Final Result Performing Organization Address [facility] Co de Phone Number [facility] * MLR HEMOGLOBIN A1C (12/18/2023 12:04 PM EDT) Pathologist [facility] GLYCOHEMOGLOBIN A1C 4.9 4.5 - 6.2 % [facility] Comment: ADA RECOMMENDED LIMIT 4.0 - 6.0 ADA THERAPEUTIC TARGET < 7.0 ACTION SUGGESTED > 7.0 ESTIMATED AVERAGE GLUCOSE 94 mg/dL [facility] 12/18/2023 12:0 4 PM EDT 12/18/2023 12:10 PM EDT Narrative CLINISYNC - 12/18/2023 12:32 PM EDT us Roosevelt Mauricio DO CLINIS[facility]NC Final Result [facility] TB * [...] 12:10 PM EDT Narrative CLIN[facility] - 12/18/2023 12:26 PM EDT us Roosevelt Martínez DO [facility] Final [facility] * US OB TRANSVAGINAL (12/18/2023 9:11 AM EDT) Anatomical Region Laterality Modality Other 12/18/2023 9:11 AM EDT Narrative 12/18/2023 9:13 [place] [address] Ultrasound Report Signed Patient: LATHA STEEL MR#: [id number] : 2000 Acct:[id number] Age/Sex: 23 / F ADM Date: 12/18/23 Loc: [facility] Attending Dr: Roosevelt Martínez D.O. Ordering Physician: Roosevelt Martínez D.O. Date of Service: 12/18/23 Procedure(s): US OB transvaginal Accession Number(s): [id number] cc: Roosevelt Martínez D.O.; Fady Tsang M.D. [place] [id number] Patient Name: LATHA STEEL MRN: [id number] date: 2000 Sex: F Assigned Patient Location: [facility] Current Patient Location: [facility] Accession/Order Number: [id number] Exam Date: 12/18/2023 08:33 Report Date: 12/18/2023 [...] M.D. Signed By: 12/18/23912 DD/ 0 TD/TT: Refrigerator Repairman: Procedure Note Radiology, Radiologist, MD - 12/18/2023 [place] [address] Ultrasound Report Signed Patient: LATHA STEEL EMR#: [id number] : 2000Acct:[id number] Age/Sex: 23 / FADM Date: 12/18/23 Loc: [facility] Attending Dr: Roosevelt Martínez D.O. Ordering Physician: Roosevelt Martínez D.O. Date of Service: 12/18/23 Procedure(s): US OB transvaginal Accession Number(s): [id number] cc: Roosevelt Martínez D.O.; Fady Tsang M.D. The [place] [id number] Patient Name: LATHA STEEL MRN: [id number] date: 2000 Sex: F Assigned Patient Location: [facility] Current Patient Location: [facility] Accession/Order Number: [id number] Exam Date: 12/18/2023 08:33 Report Date: 12/18/2023 [...] Coelho M.D. Signed By:12/18/23912 DD/ 0 TD/TT: Refrigerator Repairman: us Roosevelt Martínez DO [facility] Final Result documented in this encounter Visit Diagnoses Not on filedocumented in this encounter Care Teams Electronic Warfare Technician Relationship Specialty Start Date End Date Fady Tsang MD [address] [place] [address] PCP - General Family Medicine 04/21/23 documented as of this encounter
--- OUTSIDE RECORDS SUMMARY | 2025-04-26 06:05 | XMS_ITS ---
Author Organization [facility] Source Produ ction (ClinicalSummary Clone) Address Unknown Care Team Providers Care Aircraft Maintenance Instructor Name Role Phone Unavailable Primary Care Physician Unavailab le Results * [UNITY] ANEUPLOIDY NIPT Performed by: [employer] Value Range Date Fraction 5.5% 03/17/2025 05 :59 am UTC Rh(D) NIPT RhD DETECTED 03/17/2025 05:5 9 am UTC Sex Chromosome Aneuploidy NOT DETECTED 05:59 am UTC Monosomy X LOW RISK <1 in 10,000 2024 05:59 am UTC Trisomy 13 LOW RISK <1 in 10,000 2024 05:59 am UTC Trisomy 18 LOW RISK <1 in 10,000 2024 05:59 am UTC Trisomy 21 LOW RISK <1 in 10,000 2024 05:59 am UTC Sex FEMALE 03/17/2025 05:5 9 am UTC Gestation ANDRADE 03/17/20 05:59 am UTC For detailed report, see PDF See PDF 03/17/2025 05:59 am UTC 03/17/2025 05:5 9 am UTC Social History Observation Value Start Date End Date
--- OUTSIDE RECORDS SUMMARY | 2025-04-26 06:05 | XMS_ITS | Encounter Summary ---
Author Organization [facility] Address [address] [facility] [place] [address] Care Team Providers Care Plug Wirer Name Role Phone Fady Tsang MD Primary Care Provider [phone] Encounter Details Date Type Department Care Team (Late Contact Info) Description 03/02/2024 Clinisync Result Encounter [facility] External Department Unsolicited Agata Meza PA [address] [facility] [address] [place], [facility]11 Social History Tobacco Use Types Packs/Day Years [...] AM EDT Routine NOMCandelario Doshi OBGYN [address] [facility] [place] [address] Agata Meza PA [address] [facility] [address] [place], [facility]11 documented as of this encounter Procedures Procedure Name Priority Date/Time Associated Diagnosis Comments US OB ANATOMY 03/02/2024 4:03 PM EDT documented in this encounter Results * US OB ANATOMY (03/02/2024 4:03 PM EDT) Anatomical Region Laterality Modality Other 03/02/2024 4:03 PM EDT Narrative 03/02/2024 4:06 PM EDT [address] [address] Ultrasound Report Signed Patient: LATHA STEEL MR#: [id number] : 2000 Acct:[id number] Age/Sex: 23 / F ADM Date: 03/02/24 Loc: [facility] Attending Dr: Agata Meza Ordering Physician: Agata Meza Date of Service: 03/02/24 Procedure(s): US OB anatomy Accession Number(s): [id number] cc: Agata Meza; Fady Tsang M.D. [address] [address] Patient Name: LATHA STEEL MRN: [id number] date: 2000 Sex: F Assigned Patient Location: [facility] Current Patient Location: [facility] Accession/Order Number: [id number] Exam Date: 03/02/2024 14:41 Report Date: 03/02/2024 [...] M.D. Signed By: 03/02/241605 DD/ 02 TD/TT: Net C Developer: Procedure Note Radiology, Radiologist, MD - 03/02/2024 [place] [address] Ultrasound Report Signed Patient: LATHA STEEL EMR#: [id number] : 2000Acct:[id number] Age/Sex: 23 / FADM Date: 03/02/24 Loc: [facility] Attending Dr: Agata Meza Ordering Physician: Agata Meza Date of Service: 03/02/24 Procedure(s): US OB anatomy Accession Number(s): [id number] cc: Agata Meza; Fady Tsang M.D. The [address] [address] Patient Name: LATHA STEEL MRN: [id number] date: 2000 Sex: F Assigned Patient Location: [facility] Current Patient Location: [facility] Accession/Order Number: [id number] Exam Date: 03/02/2024 14:41 Report Date: 03/02/2024 [...] Julisa Alvarez M.D. Signed By:03/02/24 1606 DD/ 160 TD/TT: Net C Developer: us Agata [facility]ITT [facility] Final Result documented in this encounter Visit Diagnoses Not on filedocumented in this encounter Care Teams Plug Wirer Relationship Specialty Start Date End Date Fady Tsang MD [address] [place] [address] PCP - General Family Medicine 04/21/23 documented as of this encounter
--- OUTSIDE RECORDS SUMMARY | 2025-04-26 06:05 | XMS_ITS | Encounter Summary ---
Author Organization [facility] Address [address] [facility] [place] [address] Care Team Providers Care Red Hat Linux Administrator Name Role Phone Fayd Tsang MD Primary Care Provider [phone] Encounter Details Date Type Department Care Team ([facility] Contact Info) Description 03/03/2024 Abstract MARIAN STEPHENSON [address] [facility] [address] [place] [address] Pan Martínez DO [address] [facility] [address] Joao Doshi, [facility] Social History Tobacco Use Types Packs/Day Years [...] 8:30 AM EDT Routine MARIAN STEPHENSON [address] [facility] [address] [place] [address] Agata Ross PA [address] [facility] [address] [place], [place] [address] documented as of this encounter Visit Diagnoses Not on filedocumented in this encounter Care Teams Red Hat Linux Administrator Relationship Specialty Start Date End Date Fady Tsang MD [address] [place] [address] PCP - General Family Medicine 04/21/23 documented as of this encounter
--- OUTSIDE RECORDS SUMMARY | 2025-04-26 06:05 | XMS_ITS | Encounter Summary ---
Author Organization [facility] Address [address] [facility] [place] [address] Care Team Providers Care Metal Stamping Machine Operator Name Role Phone Fady Tsang MD Primary Care Provider [phone] Encounter Details Date Type Department Care Team ([facility] Contact Info) Description 02/01/2024 Abstract MARIAN STEPHENSON [address] [place] [address] Pan Martínez DO [address] [facility] [address] [facility] [address] Joao Doshi, [facility]11 Social History Tobacco Use Types Packs/Day [...] 8:30 AM EDT Routine MARIAN STEPHENSON [address] [place] [address] Agata Ross PA [address] [facility] [address] [facility] [address] [place], [place] [address] documented as of this encounter Visit Diagnoses Not on filedocumented in this encounter Care Teams Metal Stamping Machine Operator Relationship Specialty Start Date End Date Fady Tsang MD [address] [place] [address] PCP - General Family Medicine 04/21/23 documented as of this encounter
--- OUTSIDE RECORDS SUMMARY | 2025-04-26 06:05 | XMS_ITS | Encounter Summary ---
Author Organization [facility] Address [address] [facility] [address] Care Team Providers Care Furnace Packer Name Role Phone Fady Tsang MD Primary Care Provider [phone] Encounter Details Date Type Department Care Team ([facility] Contact Info) Description 06/22/2024 Abstract MARIAN STEPHENSON [address] [place] [phone] Pan Martínez DO [address] [facility] [address] Joao Doshi, [facility] Social History Tobacco Use Types Packs/Day Years [...] EDT Routine MARIAN STEPHENSON [address] [place] [address] Agata Ross PA [address] [facility] [address] [place], [place] [phone] documented as of this encounter Visit Diagnoses Not on filedocumented in this encounter Care Teams Furnace Packer Relationship Specialty Start Date End Date Fady Tsang MD [address] [place] [address] PCP - General Family Medicine 04/21/23 documented as of this encounter
--- OUTSIDE RECORDS SUMMARY | 2025-04-26 06:05 | XMS_ITS | Encounter Summary ---
Author Organization [facility] Address [address] [facility] [address] Care Team Providers Care Orthotic Practitioner Name Role Phone Fady Tsang MD Primary Care Provider [phone] Encounter Details Date Type Department Care Team ([facility] Contact Info) Description 03/17/2025 Abstract MARIAN STEPHENSON [address] [place] [address] Pan Martínez DO [address] Joao Doshi, [id number] Social History Tobacco Use Types Packs/Day Years Used Date Smoking Tobacco: Never Smokeless Tobacco: Never Alcohol Use Standard Drinks/Week Comments Yes 4 (1 standard drink = 0.6 oz pur e alcohol) Caffeine intake: none Estimated Date of Delivery Comme nts Yes 10/08/2025 Based on Ultraso und, FHR-180 Sex and Gender Information Value Date Recorded Sex Assigned at Not on file Legal Sex Female 8:32 PM EDT Gender Identity Not on file Sexual Orientation Not on file documented as of this encounter Plan of Treatment Upcoming Encounters Date Type Department Care Team (Late Contact Info) Description 05/09/2025 8:30 AM EDT Routine MARIAN STEPHENSON [address] [place] [address] Agata Ross PA [address] [place], [place] [id number] documented as of this encounter Visit Diagnoses Not on filedocumented in this encounter Care Teams Orthotic Practitioner Relationship Specialty Start Date End Date Fady Tsang MD [address] [place] [phone] PCP - General Family Medicine 04/21/23 documented as of this encounter
--- OUTSIDE RECORDS SUMMARY | 2025-04-26 06:05 | XMS_ITS | Encounter Summary ---
Author Organization [facility] Address [address] [facility] [place] [address] Care Team Providers Care Rn Palliative Care Name Role Phone Fady Tsang MD Primary Care Provider [phone] Encounter Details Date Type Department Care Team (Late Contact Info) Description 05/10/2024 Clinisync Result Encounter [facility] Department Unsolicited Agata Meza PA [address] [place], [id number] Social History Tobacco Use Types Packs/Day Years [...] AM EDT Routine [facility] [address] [place] [phone] Agata Meza PA [address] [place], [id number] documented as of this encounter Procedures Procedure Name Priority Date/Time Associated Diagnosis Comments US OB GROWTH 05/10/2024 2:40 PM EDT documented in this encounter Results * US OB GROWTH (05/10/2024 2:40 PM EDT) Anatomical Region Laterality Modality Other 05/10/2024 2:40 PM EDT Narrative 05/10/2024 2:42 [place] [address] Ultrasound Report Signed Patient: LATHA STEEL MR#: [id number] : 2000 Acct:[id number] Age/Sex: 24 / F ADM Date: 05/10/24 Loc: [facility] Attending Dr: Agata Meza Ordering Physician: Agata Meza Date of Service: 05/10/24 Procedure(s): US OB growth Accession Number(s): [id number] cc: Agata Meza; Fady Tsang M.D. [place] [address] Patient Name: LATHA STEEL MRN: [id number] date: 2000 Sex: F Assigned Patient Location: [facility] Current Patient Location: [facility] Accession/Order Number: [id number] Exam Date: 05/10/2024 13:59 Report Date: 05/10/2024 [...] M.D. Signed By: 05/10/241441 DD/ 39 TD/TT: Leak Detector: Procedure Note Radiology, Radiologist, - 05/10/2024 [place] [address] Ultrasound Report Signed Patient: LATHA STEEL EMR#: [id number] : 2000Acct:[id number] Age/Sex: 24 / FADM Date: 05/10/24 Loc: [facility] Attending Dr: Agata Meza Ordering Physician: Agata Meza Date of Service: 05/10/24 Procedure(s): US OB growth Accession Number(s): [id number] cc: Agata Meza; Fady Tsang M.D. [place] [id number] Patient Name: LATHA STEEL MRN: [id number] date: 2000 Sex: F Assigned Patient Location: [facility] Current Patient Location: [facility] Accession/Order Number: [id number] Exam Date: 05/10/2024 13:59 Report Date: 05/10/2024 [...] Alvarez M.D. Signed By:05/10/241441 DD/ 39 TD/TT: Leak Detector: Agata [facility] Final Result documented in this encounter Visit Diagnoses Not on filedocumented in this encounter Care Teams Rn Palliative Care Relationship Specialty Start Date End Date Fady Tsang MD [address] [place] [address] PCP - General Family Medicine 04/21/23 documented as of this encounter
--- OUTSIDE RECORDS SUMMARY | 2025-04-26 06:05 | XMS_ITS | CCD ---
[facility] Organization [facility] Team Providers Care Vessel Scrapper Name Role Phone MARKER ., DR STINSON [...] Unavailable Jesus Tsang MD Primary Care Provider [phone] Jesus Tsang MD Primary Care Provider [phone] Jesus Tsang MD Primary Care Provider [phone] LEO MARTÍNEZY Attending Unavailable ADAN PIMENTEL Attending Unavailable MAURICIO, ROOSEVELT Attending Unavailable SUSANA, AGATA Attending Unavailable MAURICIO, ROOSEVELT Attending Unavailable SUSANA, AGATA Attending Unavailable SUSANA, AGATA Attending Unavailable MAURICIO, ROOSEVELT Attending Unavailable MAURICIO, ROOSEVELT Attending Unavailable MAURICIO, ROOSEVELT Attending Unavailable MAURICIO, ROOSEVELT Attending Unavailable SUSANA, AGATA Attending Unavailable Maxx Chan MD Attending Provider [phone] Maxx Chan Attending Unavailable Maxx Chan Admitting Unavailable Mauricio, Roosevelt Admitting Unavailable Mauricio, Roosevelt Attending Unavailable Mauricio, Roosevelt Admitting Unavailable Jesus Tsang Primary Care Unavailable MauricioRoosevelt Attending Unavailable Medications Current Medications Medication Drug Class(es) Dates Sig (Normalized) Sig (Original) metroNIDAZOLE 500 mg oral tablet (2 sources) Nitroimidazole Antimicrobial Start: 03-28-2025 End: 04-10-2025 take 1 tablet by mouth in the morning metroNIDAZOLE (Flagyl) 500 MG tablet Indications: BV (bacterial vaginosis) Take 1 tablet (500 mg) by mouth in the morning and 1 tablet (500 mg) before bedtime. Do all this for 7 days. Do not drink alcohol while taking this medication. 14 tablet 03/28/2025 04/10/2025 Discontinued MV-Min-Fe Fum-FA-DHA ( 1 PO) (5 sources) MV-Min- Fe Fum-FA-DHA ( 1 PO) [...] Translations: [OTHER ABNORMAL GLUCOSE] Onset: 09-22-2022 Episodic Menstrual disorders (1 source) Missed period; [...] [38 weeks gestation of ] 07-07-2024 Episodic Residual codes; unclassified (2 sources) Gestation period, 14 weeks; Translations: [14 weeks gestation of ] 04-10-2025 Episodic Past or Other Problems Problem Classification [...] system disorders (20 sources) History of Guillain [place] syndrome; Translations: [Personal history of other diseases [...] Test Name Value Interpretation Reference Range Facility Urine Cultureon 04-15-2025 Bacteria identified Cx Nom (U) No Growth 2 Days PERFORMED BY: [place] [address] PATHOLOGIST RESEARCH FOOD TECHNOLOGIST ASHLI GONZALEZ M.D. Normal [facility] Comment on above: Performed By: #### C UU #### [facility] [address] Urinalysis macro (dipstick) panel (U)on 04-10-2025 Bilirubin, UA Negative Negative - 4(70) +++ mg/dL [facility] Blood, UA Negative Negative - 50 Gabriele/mcL [facility] Clarity, UA Clear [facility] Color, UA Yellow [facility] Glucose, UA Negative Negative - 1999(110) ++++ mg/dL [facility] Interpretation and review of laboratory results Normal [facility] Ketones, UA Negative Negative - 160(16) ++++ mg/dL [facility] Leukocytes, UA Negative Negative - 500+++ Alexsandra/mcL [facility] Nitrite, UA Negative Negative - Positive [facility] pH, UA 6 5 - 9 [facility] Protein, UA Negative Negative - 2000(20) ++++ mg/dL [facility] Spec Grav, UA 1.015 1 - 1.03 [facility] Urobilinogen, UA 0.2 0.2 - 12 mg/dL [facility] ALL CBC WITH AUTO DIFFon BASOPHILS ABSOLUTE AUTO 0.1 [facility] Basophils/100 WBC (Bld) 0.6 % 0.2 - 2.0 % [facility] Eosinophils/100 WBC (Bld) 0.5 % Low 0.9 - 7.0 % [facility] Erythrocyte distribution width (RBC) [Ratio] 12.6 % 11.0 - 15.0 % [facility] Hematocrit (Bld) [Volume fraction] 39.1 % 36.0 - 48.0 % [facility] Hemoglobin (Bld) [Mass/Vol] 13.5 g/dL 12.0 - 16.0 g/dL [facility] IMMATURE GRANULOCYTES ABS AUTO 0.02 [facility] Immature granulocytes/100 WBC (Bld) 0.2 % 0.0 - 0.5 % [facility] Interpretation and review of laboratory results Abnormal [facility] LYMPHOCYTES ABSOLUTE AUTO 2.6 [facility] Lymphocytes/100 WBC (Bld) 26 % 20.5 - 60.0 % [facility] MCH (RBC) [Entitic mass] 29.4 pg 26.7 - 34.0 pg [facility] MCHC (RBC) [Mass/Vol] 34.5 g/dL 29.9 - 35.2 g/dL [facility] MCV (RBC) [Entitic vol] 85.2 fL 81.0 - 99.0 fL [facility] MONOCYTES ABSOLUTE AUTO 0.5 [facility] Monocytes/100 WBC (Bld) 5 % 1.7 - 12.0 % [facility] NEUTROPHILS ABSOLUTE AUTO 6.9 High [facility] Neutrophils/100 WBC (Bld) 67.7 % 43.0 - 75.0 % [facility] Platelet mean volume (Bld) [Entitic vol] 11.2 fL 9.5 - 13.5 fL [facility] EO # 0.1 [facility] PLT 288 [facility] RBC 4.59 [facility] WBC 10.1 [facility] HCG ( test) Ql (U)o n 03-09-2025 Interpretation and review of laboratory results Abnormal [facility] Preg Test, Ur Positive Negative [facility] US OB TRANSVAGINALon 025 US OB TRANSVAGINAL EXAM: US OB TRANSVAGINAL HISTORY: Dating, history [...] II, MD, PHD at 12-Mar-2025 08:20:08 AM [facility] Normal Not Available Comment on above: Order Comment: US OB TRANSVAGINAL No LMP recorded. Urinalysis macro (dipstick) panel (U)on 03-09-2025 Bilirubin, UA Negative Negative - 4(70) +++ mg/dL [facility] Blood, UA Negative Negative - 50 Gabrilee/mcL [facility] Clarity, UA Clear [facility] Color, UA Yellow [facility] Glucose, UA Negative Negative - 1999(110) ++++ mg/dL [facility] Interpretation and review of laboratory results Abnormal [facility] Ketones, UA Negative Negative - 160(16) ++++ mg/dL [facility] Leukocytes, UA Positive Negative - 500+++ Alexsandra/mcL [facility] Nitrite, UA Negative Negative - Positive [facility] pH, UA 6 5 - 9 [facility] Protein, UA Positive Negative - 1999(20) ++++ mg/dL [facility] Spec Grav, UA 1.03 1 - 1.03 [facility] Urobilinogen, UA 1.0 0.2 - 12 mg/dL [facility] TBH PREG QUANT HCGon 025 HCG QUANTITATIVE 176 mIU/mL [facility] Comment on above: 5-50 0.2-1 WEEK 50-500 1-2 WEEKS 100-5,000 2-3 WEEKS 500-10,000 3-4 WEEKS 1,000-50,000 4-5 WEEKS 10,000-100,000 5-6 WEEKS 15,000-200,000 6-8 WEEKS 10,000-100,000 2-3 MONTHS [facility] ALL CBC WITH AUTO DIFFon Erythrocyte distribution width (RBC) [Ratio] 13.5 % 11.0 - 15.0 % [facility] Hematocrit (Bld) [Volume fraction] 34.2 % Low 36.0 - 48.0 % [facility] Hemoglobin (Bld) [Mass/Vol] 11.2 g/dL Low 12.0 - 16.0 g/dL [facility] Interpretation and review of laboratory results Abnormal [facility] MCH (RBC) [Entitic mass] 28.2 pg 26.7 - 34.0 pg [facility] MCHC (RBC) [Mass/Vol] 32.7 g/dL 29.9 - 35.2 g/dL [facility] MCV (RBC) [Entitic vol] 86.1 fL 81.0 - 99.0 fL [facility] Platelet mean volume (Bld) [Entitic vol] 11.5 fL 9.5 - 13.5 fL [facility] TB PLT 302 [facility] RBC 3.97 Low [facility] WBC 24.5 High [facility] Fetaldex / Kleihauer Betkeon 07-13-2024 [facility] Ratio 0.0020 Ratio Normal [facility] Comment on above: Result Comment: PERF ORMED BY: [facility] [place] [address] PATHOLOGIST RESEARCH FOOD TECHNOLOGIST DANICA Newman 07-12-2024 L -- ---- Specimen: [id number] Received: 07/14/24 Status: YANNA Beard Num: [id number] Spec Type: Surgical Subm Dr: Roosevelt Martínez Tissues: A Placenta - 3rd Trimester (Greater than 28 weeks) (PLACENTA) Procedures: /3, Gross/Micro L5 ---- Age/ Patient Sex Location Account Attending Physician ---- Latha Cuevas / LABELL [id number] Roosevelt Martínez ---- SPEC NUM: [id number] RECD: 07/14/24 STATUS: YANNA BEARD NUM: [id number] YOUNG: 07/12/24- GALINA JIMÉNEZ: Roosevelt Martínez ENTERED: 07/14/24 [facility] DR: Glenda,Lab SPEC TYPE: Surgical DEPT: DORA ANDERS ENTERED BY: [id number] RECV BY: [id number] ORDERED: HE, Gross/Micro L5 ORDERED: , Gross/Micro L5 Pathological [...] date of : Single MEMBRANES: ---- Specimen: [id number] Received: 07/14/24 Status: YANNA Beard Num: [id number] Spec Type: Surgical Subm Dr: Roosevelt Martínez Tissues: A Placenta - 3rd Trimester (Greater than 28 weeks) (PLACENTA) Procedures: , Gross/Micro L5 ---- Patient: Latha Cuevas [id number] (Continued) ---- Specimen: [id number] Received: 07/14/24 (Continued) Gross Description (Continued) Signed (signature on file) Alfonso Cali MD 07/18/24 1754 ---- Specimen: [id number] Received: 07/14/24 Status: YANNA Beard Num: [id number] Spec Type: Surgical Subm Dr: Roosevelt Martínez Tissues: A Placenta - 3rd Trimester (Greater than 28 weeks) (PLACENTA) Procedures: BERNARD, Gross/Micro L5 ---- Patient: Latha Cuevas [id number] (Continued) ---- Specimen: [id number] Received: 07/14/24-1326 (Continued) Gross Description (Continued) Placenta [...] Rolled membrane, two sections of cord A2-A3 Pigment Weigher sections of placenta (3, ss, [id number] A) JG Microscopic Description Microscopic examinations are performed supporting the above interpretation CPT Codes 24510 ---- ---- Specimen: [id number] Received: 07/14/24-1326 Status: YANNA Beard Num: [id number] Spec Type: Surgical Subm Dr: Roosevelt Martínez Tissues: A Placenta - 3rd Trimester (Greater (more content not included)... Normal [facility] CBC WITH PLATELET NO DI FFERENTIALon 07-11-2024 Erythrocyte distribution width (RBC) [Ratio] 13.3 % 11.0 - 15.0 % [facility] Hematocrit (Bld) [Volume fraction] 32 % Low 36.0 - 48.0 % [facility] Hemoglobin (Bld) [Mass/Vol] 10.6 g/dL Low 12.0 - 16.0 g/dL [facility] Interpretation and review of laboratory results Abnormal [facility] MCH (RBC) [Entitic mass] 28.1 pg 26.7 - 34.0 pg [facility] MCHC (RBC) [Mass/Vol] 33.1 g/dL 29.9 - 35.2 g/dL [facility] MCV (RBC) [Entitic vol] 84.9 fL 81.0 - 99.0 fL [facility] Platelet mean volume (Bld) [Entitic vol] 12 fL 9.5 - 13.5 fL [facility] TBH PLT 296 [facility] TBH RBC 3.77 Low [facility] TB WBC 13.1 High [facility] Urinalysis macro (dipstick) panel (U)on 06-29-2024 Bilirubin, UA Negative Negative - 4(70) +++ mg/dL [facility] Blood, UA Negative Negative - 50 Gabriele/mcL [facility] Clarity, UA Clear [facility] Color, UA Yellow [facility] Glucose, UA Negative Negative - 1999(110) ++++ mg/dL [facility] Interpretation and review of laboratory results Abnormal [facility] Ketones, UA Negative Negative - 160(16) ++++ mg/dL [facility] Leukocytes, UA Negative Negative - 500+++ Alexsandra/mcL [facility] Nitrite, UA Negative Negative - Positive [facility] pH, UA 6.5 5 - 9 [facility] Protein, UA Negative Negative - 1999(20) ++++ mg/dL [facility] Spec Grav, UA 1.02 1 - 1.03 [facility] Urobilinogen, UA 1.0 0.2 - 12 mg/dL [facility] Urinalysis macro (dipstick) panel (U)Ordered By: Amarilis Oden on 06-22-2024 Bilirubin, UA Negative Negative - 4(70) +++ mg/dL [facility] Blood, UA Positive Negative - 50 Gabriele/mcL [facility] Comment on above: trace-intact Clarity, UA Clear [facility] Color, UA Yellow [facility] Glucose, UA Negative Negative - 1999(110) ++++ mg/dL [facility] Interpretation and review of laboratory results Abnormal [facility] Ketones, UA Negative Negative - 160(16) ++++ mg/dL [facility] Leukocytes, UA Positive Negative - 500+++ Alexsandra/mcL [facility] Comment on above: large Nitrite, UA Negative Negative - Positive [facility] pH, UA 6 5 - 9 [facility] Protein, UA Negative Negative - 1999(20) ++++ mg/dL [facility] Spec Grav, UA 1.025 1 - 1.03 [facility] Urobilinogen, UA 0.2 0.2 - 12 mg/dL [facility] Urinalysis macro (dipstick) panel (U)on 06-14-2024 Bilirubin, UA Negative Negative - 4(70) +++ mg/dL [facility] Blood, UA Positive Negative - 50 Gabriele/mcL [facility] Comment on above: trace Clarity, UA Clear [facility] Color, UA Yellow [facility] Glucose, UA Negative Negative - 1999(110) ++++ mg/dL [facility] Interpretation and review of laboratory results Abnormal [facility] Ketones, UA Negative Negative - 160(16) ++++ mg/dL [facility] Leukocytes, UA Trace Negative - 500+++ Alexsandra/mcL [facility] Nitrite, UA Negative Negative - Positive [facility] pH, UA 6.5 5 - 9 [facility] Protein, UA Trace Negative - 1999(20) ++++ mg/dL [facility] Spec Grav, UA 1.025 1 - 1.03 [facility] Urobilinogen, UA 1.0 0.2 - 12 mg/dL [facility] Urinalysis macro (dipstick) panel (U)on 06-07-2024 Bilirubin, UA Negative Negative - 4(70) +++ mg/dL [facility] Blood, UA Negative Negative - 50 Gabriele/mcL [facility] Clarity, UA Clear [facility] Color, UA Yellow [facility] Glucose, UA Negative Negative - 1999(110) ++++ mg/dL [facility] Interpretation and review of laboratory results Abnormal [facility] Ketones, UA Positive Negative - 160(16) ++++ mg/dL [facility] Comment on above: trace Leukocytes, UA Negative Negative - 500+++ Alexsandra/mcL [facility] Nitrite, UA Negative Negative - Positive [facility] pH, UA 7 5 - 9 [facility] Protein, UA Negative Negative - 1999(20) ++++ mg/dL [facility] Spec Grav, UA 1.025 1 - 1.03 [facility] Urobilinogen, UA 0.2 0.2 - 12 mg/dL [facility] Urinalysis macro (dipstick) panel (U)on 05-24-2024 Bilirubin, UA Negative Negative - 4(70) +++ mg/dL [facility] Blood, UA Positive Negative - 50 Gabriele/mcL [facility] Comment on above: trace Clarity, UA Clear [facility] Color, UA Yellow [facility] Glucose, UA Negative Negative - 1999(110) ++++ mg/dL [facility] Interpretation and review of laboratory results Abnormal [facility] Ketones, UA Negative Negative - 160(16) ++++ mg/dL [facility] Leukocytes, UA Positive Negative - 500+++ Alexsandra/mcL [facility] Comment on above: small Nitrite, UA Negative Negative - Positive [facility] pH, UA 7 5 - 9 [facility] Protein, UA Negative Negative - 1999(20) ++++ mg/dL [facility] Spec Grav, UA 1.02 1 - 1.03 [facility] Urobilinogen, UA 0.2 0.2 - 12 mg/dL [facility] Urinalysis macro (dipstick) panel (U)on 05-10-2024 Bilirubin, UA Negative Negative - 4(70) +++ mg/dL [facility] Blood, UA Positive Negative - 50 Gabriele/mcL [facility] Comment on above: trace-intact Clarity, UA Clear [facility] Color, UA Yellow [facility] Glucose, UA Negative Negative - 1999(110) ++++ mg/dL [facility] Interpretation and review of laboratory results Abnormal [facility] Ketones, UA Positive Negative - 160(16) ++++ mg/dL [facility] Comment on above: 15 Leukocytes, UA Negative Negative - 500+++ Alexsandra/mcL [facility] Nitrite, UA Negative Negative - Positive [facility] pH, UA 7 5 - 9 [facility] Protein, UA Negative Negative - 1999(20) ++++ mg/dL [facility] Spec Grav, UA 1.025 1 - 1.03 [facility] Urobilinogen, UA 0.2 0.2 - 12 mg/dL [facility] Urinalysis macro (dipstick) panel (U)on 04-27-2024 Bilirubin, UA Positive Negative - 4(70) +++ mg/dL [facility] Comment on above: small Blood, UA Positive Negative - 50 Gabriele/mcL [facility] Comment on above: large Clarity, UA Clear [facility] Color, UA Gay [facility] Glucose, UA Negative Negative - 1999(110) ++++ mg/dL [facility] Interpretation and review of laboratory results Abnormal [facility] Ketones, UA Positive Negative - 160(16) ++++ mg/dL [facility] Comment on above: 40 mg Leukocytes, UA Positive Negative - 500+++ Alexsandra/mcL [facility] Comment on above: small Nitrite, UA Negative Negative - Positive [facility] pH, UA 5.5 5 - 9 [facility] Protein, UA Positive Negative - 1999(20) ++++ mg/dL [facility] Comment on above: 30 mg Spec Grav, UA 1.030 1 - 1.03 [facility] Urobilinogen, UA 1.0 0.2 - 12 mg/dL [facility] ALL CBC WITH AUTO DIFFon BASOPHILS ABSOLUTE AUTO 0.0 [facility] Basophils/100 WBC (Bld) 0.4 % 0.2 - 2.0 % [facility] Eosinophils/100 WBC (Bld) 0.3 % Low 0.9 - 7.0 % [facility] Erythrocyte distribution width (RBC) [Ratio] 12.6 % 11.0 - 15.0 % [facility] Hematocrit (Bld) [Volume fraction] 32.0 % Low 36.0 - 48.0 % [facility] Hemoglobin (Bld) [Mass/Vol] 10.9 g/dL Low 12.0 - 16.0 g/dL [facility] IMMATURE GRANULOCYTES ABS AUTO 0.03 [facility] Immature granulocytes/100 WBC (Bld) 0.3 % 0.0 - 0.5 % [facility] Interpretation and review of laboratory results Abnormal [facility] LYMPHOCYTES ABSOLUTE AUTO 1.9 [facility] Lymphocytes/100 WBC (Bld) 20.2 % Low 20.5 - 60.0 % [facility] MCH (RBC) [Entitic mass] 30.4 pg 26.7 - 34.0 pg [facility] MCHC (RBC) [Mass/Vol] 34.1 g/dL 29.9 - 35.2 g/dL [facility] MCV (RBC) [Entitic vol] 89.1 fL 81.0 - 99.0 fL [facility] MONOCYTES ABSOLUTE AUTO 0.4 [facility] Monocytes/100 WBC (Bld) 4.3 % 1.7 - 12.0 % [facility] NEUTROPHILS ABSOLUTE AUTO 7.0 High [facility] Neutrophils/100 WBC (Bld) 74.5 % 43.0 - 75.0 % [facility] Platelet mean volume (Bld) [Entitic vol] 11.4 fL 9.5 - 13.5 fL [facility] TBH EO # 0.0 [facility] TBH PLT 229 [facility] TB RBC 3.59 Low [facility] TBH WBC 9.4 [facility] Urinalysis macro (dipstick) panel (U)on 03-30-2024 Bilirubin, UA Negative Negative - 4(70) +++ mg/dL [facility] Blood, UA Negative Negative - 50 Gabriele/mcL [facility] Clarity, UA Clear [facility] Color, UA Yellow [facility] Glucose, UA Negative Negative - 1999(110) ++++ mg/dL [facility] Interpretation and review of laboratory results Abnormal [facility] Ketones, UA Positive Negative - 160(16) ++++ mg/dL [facility] Leukocytes, UA Negative Negative - 500+++ Alexsandra/mcL [facility] Nitrite, UA Negative Negative - Positive [facility] pH, UA 5.5 5 - 9 [facility] Protein, UA Negative Negative - 1999(20) ++++ mg/dL [facility] Spec Grav, UA 1.030 1 - 1.03 [facility] Urobilinogen, UA 0.2 0.2 - 12 mg/dL [facility] AFP, SERUM, OPEN SPINA BIFID Aon 03-16-2024 AFP MOM 1.19 . [facility] AFP VALUE 75.0 ng/mL . [facility] COMMENT: Comment . [facility] Comment on above: Josephine Ortiz , Ph.D., [facility] Director References: Available Upon Request. Multiples Of Median Cutoffs For AFP Elevations Blanca 2.5 Black 2.8 IDD 2.0 Twins 4.5 Abbreviation Definitions IDD - Insulin Dep Diabetes OSBR - Open Spina Bifida Risk For further inquiries contact [facility] at [phone]. This test was developed and its performance characteristics determined by [facility]. It has not been cleared or approved by the Food and Drug Administration. Performed at: [facility] [place], [place] [id number] Service Worker Helper: Ginna Hawley [facility], Phone: [phone] GEST. AGE ON COLLECTION DATE 21.6 . weeks [facility] GESTAT. AGE BASED ON LMP . [facility] Comment on above: Recalculations are n ot recommended when gestational dating by LMP and ultrasound are within 10 days. INSULIN DEP DIABETES No . [facility] INTERPRETATION Comment . [facility] Comment on above: Interpretation: Scre en Negative [...] Customer Services to discuss available options. The [employer] recommends amniocentesis be offered to women age 35 and older. [age] [facility] MULTIPLE GESTATION No . [facility] OSBR RISK 1 [place] 6704 . [facility] RACE . [facility] RESULTS Report . [facility] TEST RESULTS: Negative . [facility] WEIGHT 171 . lbs [facility] N N LMP [id number] 1 17 N 1 Y 171 N N N N N White/ [facility] Cytology Cervical or vaginal smear or scraping studyon 04-21-2023 [facility] CARDIAC BRAIN ADMITon 023 CK [Catalytic activity/Vol] 102 U/L Normal 26-192 [facility] Comment on above: Performed By: #### C BC #### [facility] [address] [place] [address] Dr. Michelle Cali CK.MB [Mass/Vol] 0.74 ng/mL Normal <=3.60 [facility] Comment on above: Performed By: #### C BC #### [facility] [address] [place] [address] Dr. Michelle Cali HSTROP 7.7 pg/mL Normal 4.0-51.3 [facility] Comment on above: Result Comment: CUT- OFF POINTS HAVE BEEN ESTABLISHED BASED ON THE FOURTH UNIVERSAL DEFINITIONS OF MYOCARDIAL INFARCTION. THE UPPER REFERENCE LIMIT (URL) OF TROPONIN, DEFINED THE 99TH PERCENTILE OF cTnI DISTRIBUTION IN A REFERENCE POPULATION, HAS BEEN CONFIRMED THE DECISION THRESHOLD FOR ND DIAGNOSIS. Performed By: #### C BC #### [facility] [address] [place] [address] Dr. Michelle Cali SHAHNAZ 24 ng/mL Normal 9-82 [facility] Comment on above: Performed By: #### C BC #### [facility] [address] [place] [address] Dr. Michelle Cali CBC AUTO DIFFon 12-04-2022 BASO # 0.1 103/ul Normal 0.0-0.1 [facility] Comment on above: Performed By: #### C BC #### [facility] [address] [place] [address] Dr. Michelle Cali Basophils/100 WBC (Bld) 0.9 % Normal 0.2-2.0 [facility] Comment on above: Performed By: #### C BC #### [facility] [address] [place] [address] Dr. Michelle Cali EO # 0.1 103/ul Normal 0.0-0.7 [facility] Comment on above: Performed By: #### C BC #### [facility] [address] [place] [address] Dr. Michelle Cali Eosinophils/100 WBC (Bld) 0.6 % Critically low 0.9-7.0 [facility] Comment on above: Performed By: #### C BC #### [facility] [address] [place] [address] Dr. Michelle Cali Erythrocyte distribution width (RBC) [Ratio] 12.3 % Normal 11.0-15.0 [facility] Comment on above: Performed By: #### C BC #### [facility] [address] [place] [address] Dr. Michelle Cali Hematocrit (Bld) [Volume fraction] 40.3 % Normal 36.0-48.0 [facility] Comment on above: Performed By: #### C BC #### [facility] [address] [place] [address] Dr. Michelle Cali Hemoglobin (Bld) [Mass/Vol] 13.2 g/dL Normal 12.0-16.0 [facility] Comment on above: Performed By: #### C BC #### [facility] [address] [place] [address] Dr. Michelle Cali IG # 0.03 10e3/ul Normal 0.00-0.03 [facility] Comment on above: Performed By: #### C BC #### [facility] [address] [place] [address] Dr. Michelle Cali IG % 0.3 % Normal 0.0-0.5 [facility] Comment on above: Performed By: #### C BC #### [facility] [address] [place] [address] Dr. Michelle Cali LYMPH # 4.1 103/ul Critically high 1.2-3.8 [facility] [place] Comment on above: Performed By: #### C BC #### [facility] [address] [place] [address] Dr. Michelle Cali Lymphocytes/100 WBC (Bld) 39.9 % Normal 20.5-60.0 [facility] Comment on above: Performed By: #### C BC #### [facility] [address] [place] [address] Dr. Michelle Cali MANUAL DIFF REQ NO Normal [facility] Comment on above: Performed By: #### C BC #### [facility] [address] [place] [address] Dr. Michelle Cali MCH (RBC) [Entitic mass] 29.8 pg Normal 26.7-34.0 [facility] Comment on above: Performed By: #### C BC #### [facility] [address] [place] [address] Dr. Michelle Cali MCHC (RBC) [Mass/Vol] 32.8 g/dL Normal 29.9-35.2 [facility] Comment on above: Performed By: #### C BC #### [facility] [address] [place] [address] Dr. Michelle Cali MCV (RBC) [Entitic vol] 91.0 fL Normal 81.0-99.0 [facility] Comment on above: Performed By: #### C BC #### [facility] [address] [place] [address] Dr. Michelle Cali MONO # 0.5 103/ul Normal 0.3-0.8 [facility] Comment on above: Performed By: #### C BC #### [facility] [address] [place] [address] Dr. Michelle Cali Monocytes/100 WBC (Bld) 5.2 % Normal 1.7-12.0 [facility] Comment on above: Performed By: #### C BC #### [facility] [address] [place] [address] Dr. Michelle Cali NEUT # 5.4 103/ul Normal 1.4-6.5 [facility] Comment on above: Performed By: #### C BC #### [facility] [address] [place] [address] Dr. Michelle Cali Neutrophils/100 WBC (Bld) 53.1 % Normal 43.0-75.0 [facility] Comment on above: Performed By: #### C BC #### [facility] [address] [place] [address] Dr. Michelle Cali Platelet mean volume (Bld) [Entitic vol] 10.6 fL Normal 9.5-13.5 [facility] Comment on above: Performed By: #### C BC #### [facility] [address] [place] [address] Dr. Michelle Cali PLT 310 103/ul Normal 150-450 [facility] Comment on above: Performed By: #### C BC #### [facility] [address] [place] [address] Dr. Michelle Cali RBC 4.43 106/ul Normal 4.20-5.40 [facility] Comment on above: Performed By: #### C BC #### [facility] [address] [place] [address] Dr. Michelle Cali WBC 10.2 103/ul Normal 4.0-11.0 [facility] Comment on above: Performed By: #### C BC #### [facility] [address] [place] [address] Dr. Michelle Cali D-DIMERon 12-04-2022 D-DIMER 0.19 mg/L FEU Normal <=0.59 [facility] Comment on above: Performed By: #### C BC #### [facility] [address] [place] [address] Dr. Michelle Cali D-DIMER COMMENTS SEE BELOW Normal [facility] Comment on above: Result Comment: Incr [...] hospitalization. Performed By: #### C BC #### [facility] [address] [place] [address] Dr. Michelle Cali ER URINE PROFILEon 3 Bilirubin Ql (U) Negative Normal NEGATIVE [facility] Comment on above: Performed By: #### P REGU, ERUR #### [facility] [address] [place], [place] [id number] Dr. Michelle Cali Clarity (U) CLEAR Normal CLEAR [facility] Comment on above: Performed By: #### P REGU, ERUR #### [facility] [address] [place] [address] Dr. Michelle Cali Color (U) YELLOW Normal YELLOW [facility] Comment on above: Performed By: #### P REGU, ERUR #### [facility] [address] [place] [address] Dr. Michelle Cali ERUAHD A micrscopic examination will be performed if indicated. Normal [facility] Comment on above: Performed By: #### P REGU, ERUR #### [facility] [address] [place] [address] Dr. Michelle Cali Glucose Ql (U) Negative Normal NEGATIVE [facility] Comment on above: Performed By: #### P REGU, ERUR #### [facility] [address] [place] [address] Dr. Michelle Cali Hemoglobin Ql (U) Negative Normal NEGATIVE [facility] Comment on above: Performed By: #### P REGU, ERUR #### [facility] [address] [place] [address] Dr. Michelle Cali Ketones Ql (U) Negative Normal NEGATIVE [facility] Comment on above: Performed By: #### P REGU, ERUR #### [facility] [address] [place] [address] Dr. Michelle Cali LEUKOCYTES Negative Normal NEGATIVE [facility] Comment on above: Performed By: #### P REGU, ERUR #### [facility] [address] [place] [address] Dr. Michelle Cali Nitrite Ql (U) Negative Normal NEGATIVE [facility] Comment on above: Performed By: #### P REGU, ERUR #### [facility] [address] [place] [address] Dr. Michelle Cali pH (U) 6.0 [pH] Normal 5-9 [facility] Comment on above: Performed By: #### P REGU, ERUR #### [facility] [address] [address] [address] Michelle Cali SPEC GRAVITY >=1.030 Abnormal 1.005-<=1.025 [facility] [place] Comment on above: Performed By: #### P MARIOU, ERUR #### [facility] [address] [address] [address] Michelle Cali UA PROTEIN TRACE Normal NEGATIVE/ TRACE [facility] Comment on above: Performed By: #### P MARIOU, ERUR #### [facility] [address] [address] [address] Michelle Cali UR MICRO IND NOT INDICATED Normal [facility] [place] Comment on above: Performed By: #### P MARIOU, ERUR #### [facility] [address] [place] [address] Dr. Michelle Cali Urobilinogen Qn (U) 0.2 {Kalyan'U}/dL Normal 0.2 - 1. 0 [facility] Comment on above: Performed By: #### P MARIOU, ERUR #### [facility] [address] [place] [address] Dr. Michelle Cali URon 12-04-2022 , QUAL Negative Normal NEGATIVE [facility] [place] Comment on above: Performed By: #### P JAVIER, ERUR #### [facility] [address] [place] [address] Dr. Michelle Cali PROF 14(COMP METB)on 023 Albumin [Mass/Vol] 3.9 g/dL Normal 3.4-5.0 [facility] Comment on above: Performed By: #### C BC #### [facility] [address] [place] [address] Dr. Michelle Cali Albumin/Globulin [Mass ratio] 1.0 {ratio} Normal [facility] Comment on above: Performed By: #### C BC #### [facility] [address] [place] [address] Dr. Michelle Cali ALP [Catalytic activity/Vol] 69 U/L Normal 46-116 [facility] Comment on above: Performed By: #### C BC #### [facility] [address] [address] [address] Michelle Cali ALT [Catalytic activity/Vol] 13 U/L Critically low 14-59 [facility] Comment on above: Performed By: #### C BC #### [facility] [address] [address] [address] Michelle Cali Anion gap [Moles/Vol] 13.6 mmol/L Normal [facility] Comment on above: Performed By: #### C BC #### [facility] [address] [address] [address] Michelle Cali AST [Catalytic activity/Vol] 11 U/L Critically low 15-37 [facility] Comment on above: Performed By: #### C BC #### [facility] [address] [place] [address] Dr. Michelle Cali Bilirubin [Mass/Vol] 0.3 mg/dL Normal 0.2-1.0 [facility] Comment on above: Performed By: #### C BC #### [facility] [address] [place] [address] Dr. Michelle Cali Calcium [Mass/Vol] 9.0 mg/dL Normal 8.5-10.1 [facility] Comment on above: Performed By: #### C BC #### [facility] [address] [place] [address] Dr. Michelle Cali Chloride [Moles/Vol] 105 mmol/L Normal 98-107 [facility] Comment on above: Performed By: #### C BC #### [facility] [address] [place] [address] Dr. Michelle Cali CO2 [Moles/Vol] 26.8 mmol/L Normal 21.0-32.0 [facility] Comment on above: Performed By: #### C BC #### [facility] [address] [place] [address] Dr. Michelle Cali Creatinine [Mass/Vol] 0.82 mg/dL Normal 0.55-1.02 [facility] Comment on above: Performed By: #### C BC #### [facility] [address] [place] [address] Dr. Michelle Cali EGFR-AF AZERBAIJANI >60 Normal >=60 [facility] Comment on above: Performed By: #### C BC #### [facility] [address] [address] [address] Michelle Cali EGFR-NON AF AZERBAIJANI >60 Normal >=60 [facility] Comment on above: Performed By: #### C BC #### [facility] [address] [address] [address] Michelle Cali Globulin (S) [Mass/Vol] 3.8 g/dL Normal [facility] Comment on above: Performed By: #### C BC #### [facility] [address] [address] [address] Michelle Cali Glucose [Mass/Vol] 104 mg/dL Normal 74-106 [facility] Comment on above: Performed By: #### C BC #### [facility] [address] [place] [address] Dr. Michelle Cali Potassium [Moles/Vol] 3.4 mmol/L Critically low 3.5-5.1 [facility] Comment on above: Performed By: #### C BC #### [facility] [address] [place] [address] Dr. Michelle Cali Protein [Mass/Vol] 7.7 g/dL Normal 6.4-8.2 [facility] Comment on above: Performed By: #### C BC #### [facility] [address] [place] [address] Dr. Michelle Cail Sodium [Moles/Vol] 142 mmol/L Normal 136-145 [facility] Comment on above: Performed By: #### C BC #### [facility] [address] [address] [address] Michelle Cali Urea nitrogen [Mass/Vol] 9.0 mg/dL Normal 7.0-18.0 [facility] Comment on above: Performed By: #### C BC #### [facility] [address] [place] [address] Dr. Michelle Cali Urea nitrogen/Creatinine [Mass ratio] 11.0 mg/mg Normal [facility] Comment on above: Performed By: #### C BC #### [facility] [address] [place] [address] Dr. Michelle Cali TSHon 12-04-2022 TSH 6.358 uIU/mL Critically high 0.358-3.740 [facility] Comment on above: Performed By: #### C BC #### [facility] [address] [place] [address] Dr. Michelle Cali INSULINon 09-19-2022 Insulin 6.8 uIU/mL Normal 2.6-24.9 [facility] Comment on above: Performed By: #### C BC #### [facility] [address] [place] [address] Dr. Michelle Cali CBC AUTO DIFFon 09-18-2022 BASO # 0.1 103/ul Normal 0.0-0.1 [facility] Comment on above: Performed By: #### C BC #### [facility] [address] [place] [address] Dr. Michelle Cali Basophils/100 WBC (Bld) 0.8 % Normal 0.2-2.0 [facility] Comment on above: Performed By: #### C BC #### [facility] [address] [place] [address] Dr. Michelle Cali EO # 0.1 103/ul Normal 0.0-0.7 [facility] Comment on above: Performed By: #### C BC #### [facility] [address] [place] [address] Dr. Michelle Cali Eosinophils/100 WBC (Bld) 0.8 % Critically low 0.9-7.0 [facility] Comment on above: Performed By: #### C BC #### [facility] [address] [place] [address] Dr. Michelle Cali Erythrocyte distribution width (RBC) [Ratio] 12.4 % Normal 11.0-15.0 [facility] Comment on above: Performed By: #### C BC #### [facility] [address] [place] [address] Dr. Michelle Cali Hematocrit (Bld) [Volume fraction] 41.6 % Normal 36.0-48.0 [facility] Comment on above: Performed By: #### C BC #### [facility] [address] [place] [address] Dr. Michelle Cali Hemoglobin (Bld) [Mass/Vol] 14.3 g/dL Normal 12.0-16.0 [facility] Comment on above: Performed By: #### C BC #### [facility] [address] [place] [address] Dr. Michelle Cali IG # 0.03 10e3/ul Normal 0.00-0.03 [facility] Comment on above: Performed By: #### C BC #### [facility] [address] [place] [address] Dr. Michelle Cali IG % 0.3 % Normal 0.0-0.5 [facility] Comment on above: Performed By: #### C BC #### [facility] [address] [place] [address] Dr. Michelle Cali LYMPH # 3.1 103/ul Normal 1.2-3.8 [facility] Comment on above: Performed By: #### C BC #### [facility] [address] [place] [address] Dr. Michelle Cali Lymphocytes/100 WBC (Bld) 32.8 % Normal 20.5-60.0 [facility] Comment on above: Performed By: #### C BC #### [facility] [address] [place] [address] Dr. Michelle Cali MANUAL DIFF REQ NO Normal [facility] Comment on above: Performed By: #### C BC #### [facility] [address] [place] [address] Dr. Michelle Cali MCH (RBC) [Entitic mass] 29.5 pg Normal 26.7-34.0 [facility] Comment on above: Performed By: #### C BC #### [facility] [address] [place] [address] Dr. Michelle Cali MCHC (RBC) [Mass/Vol] 34.4 g/dL Normal 29.9-35.2 [facility] Comment on above: Performed By: #### C BC #### [facility] [address] [place] [address] Dr. Michelle Cali MCV (RBC) [Entitic vol] 86.0 fL Normal 81.0-99.0 [facility] Comment on above: Performed By: #### C BC #### [facility] [address] [place] [address] Dr. Michelle Cali MONO # 0.5 103/ul Normal 0.3-0.8 [facility] Comment on above: Performed By: #### C BC #### [facility] [address] [place] [address] Dr. Michelle Cali Monocytes/100 WBC (Bld) 5.6 % Normal 1.7-12.0 [facility] Comment on above: Performed By: #### C BC #### [facility] [address] [place] [address] Dr. Michelle Cali NEUT # 5.7 103/ul Normal 1.4-6.5 [facility] Comment on above: Performed By: #### C BC #### [facility] [address] [place] [address] Dr. Michelle Cali Neutrophils/100 WBC (Bld) 59.7 % Normal 43.0-75.0 [facility] Comment on above: Performed By: #### C BC #### [facility] [address] [place] [address] Dr. Michelle Cali Platelet mean volume (Bld) [Entitic vol] 10.3 fL Normal 9.5-13.5 [facility] Comment on above: Performed By: #### C BC #### [facility] [address] [place] [address] Dr. Michelle Cali PLT 319 103/ul Normal 150-450 [facility] Comment on above: Performed By: #### C BC #### [facility] [address] [place] [address] Dr. Michelle Cali RBC 4.84 106/ul Normal 4.20-5.40 [facility] Comment on above: Performed By: #### C BC #### [facility] [address] [address] [address] Michelle Cali WBC 9.5 103/ul Normal 4.0-11.0 [facility] Comment on above: Performed By: #### C BC #### [facility] [address] [place] [address] Dr. Michelle Cali FREE THYROXINE INDEX T7on FTI 2.36 Normal 1.30-4.50 [facility] Comment on above: Performed By: #### T SH, CMP, T7, LIPID #### [facility] [address] [place] [address] Dr. Michelle Cali T3U 31.0 % Normal 30.0-39.0 [facility] Comment on above: Performed By: #### T SH, CMP, T7, LIPID #### [facility] [address] [place] [address] Dr. Michelle Cali T4 [Mass/Vol] 7.60 ug/dL Normal 4.80-13.90 [facility] Comment on above: Performed By: #### T SH, CMP, T7, LIPID #### [facility] [address] [place] [address] Dr. Michelle Cali GLYCOHEMOGLOBIN A1Con 2022 ADA RECOMMENDATION SEE BELOW Normal [facility] Comment on above: Result Comment: ADA RECOMMENDED LIMIT 4.0 - 6.0 ADA THERAPEUTIC TARGET < 7.0 ACTION SUGGESTED > 7.0 Performed By: #### C BC #### [facility] [address] [place] [address] Dr. Michelle Cali Glucose [Mass/Vol] 105 mg/dL Normal [facility] Comment on above: Performed By: #### C BC #### [facility] [address] [place] [address] Dr. Michelle Cali HbA1c (Bld) [Mass fraction] 5.3 % Normal 4.5-6.2 [facility] Comment on above: Performed By: #### C BC #### [facility] [address] [place] [address] Dr. Michelle Cali IRONon 09-18-2022 Iron [Mass/Vol] 80.0 ug/dL Normal 50.0-170.0 [facility] Comment on above: Performed By: #### I ABIGAIL #### [facility] [address] [place] [address] Dr. Michelle Cali LIPID PROFILEon 09-18-2022 CHOL-HDL RATIO NORM SEE BELOW Normal [facility] Comment on above: Result Comment: 3.3 - 4.4 LOW RISK 4.4 - 7.1 AVERAGE RISK 7.1 - 11.0 MODERATE RISK >11.0 HIGH RISK Performed By: #### T SH, CMP, T7, LIPID #### [facility] [address] [place] [address] Dr. Michelle Cali Cholesterol [Mass/Vol] 175 mg/dL Normal <=200 [facility] Comment on above: Performed By: #### T SH, CMP, T7, LIPID #### [facility] [address] [place] [address] Dr. Michelle Cali Cholesterol in HDL [Mass/Vol] 72 mg/dL Critically high 40-60 [facility] Comment on above: Performed By: #### T SH, CMP, T7, LIPID #### [facility] [address] [address] [address] Michelle Cali Cholesterol in LDL [Mass/Vol] 85.8 mg/dL Normal [facility] Comment on above: Performed By: #### T SH, CMP, T7, LIPID #### [facility] [address] [place] [address] Dr. Michelle Cali Cholesterol.total/Ch olesterol in HDL [Mass ratio] 2.4 {ratio} Normal [facility] Comment on above: Performed By: #### T SH, CMP, T7, LIPID #### [facility] [address] [address] [address] Michelle Cali HDL NORMAL > or = 60 mg/dl - LO W CARDIOVASCULAR RISK <40 mg/dl - HIGH CARDIOVASCULAR RISK Normal [facility] Comment on above: Performed By: #### T SH, CMP, T7, LIPID #### [facility] [address] [address] [address] Michelle Cali LDL CALC NORMAL SEE BELOW Normal [facility] Comment on above: Result Comment: <100 mg/dl OPTIMAL 100 - 129 mg/dl NEAR OR ABOVE OPTIMAL 130 - 159 mg/dl BORDERLINE HIGH 160 - 189 mg/dl HIGH >190 mg/dl VERY HIGH Performed By: #### T SH, CMP, T7, LIPID #### [facility] [address] [address] [address] Michelle Cali Triglyceride [Mass/Vol] 86 mg/dL Normal <=150 [facility] Comment on above: Performed By: #### T SH, CMP, T7, LIPID #### [facility] [address] [place] [address] Dr. Michelle Cali VLDL CALC 17.2 mg/dL Normal [facility] Comment on above: Performed By: #### T SH, CMP, T7, LIPID #### [facility] [address] [place] [address] Dr. Michelle Cali PROF 14(COMP METB)on 023 Albumin [Mass/Vol] 4.3 g/dL Normal 3.4-5.0 [facility] Comment on above: Performed By: #### T SH, CMP, T7, LIPID #### [facility] [address] [place] [address] Dr. Michelle Cali Albumin/Globulin [Mass ratio] 1.0 {ratio} Normal [facility] Comment on above: Performed By: #### T SH, CMP, T7, LIPID #### [facility] [address] [place] [address] Dr. Michelle Cali ALP [Catalytic activity/Vol] 65 U/L Normal 46-116 [facility] Comment on above: Performed By: #### T SH, CMP, T7, LIPID #### [facility] [address] [place] [address] Dr. Michelle Cali ALT [Catalytic activity/Vol] 17 U/L Normal 14-59 [facility] Comment on above: Performed By: #### T SH, CMP, T7, LIPID #### [facility] [address] [place], [place] [id number] Dr. Michelle Cali Anion gap [Moles/Vol] 12.2 mmol/L Normal [facility] Comment on above: Performed By: #### T SH, CMP, T7, LIPID #### [facility] [address] [place] [address] Dr. Michelle Cali AST [Catalytic activity/Vol] 15 U/L Normal 15-37 [facility] Comment on above: Performed By: #### T SH, CMP, T7, LIPID #### [facility] [address] [place] [address] Dr. Michelle Cali Bilirubin [Mass/Vol] 0.4 mg/dL Normal 0.2-1.0 [facility] Comment on above: Performed By: #### T SH, CMP, T7, LIPID #### [facility] [address] [place] [address] Dr. Michelle Cali Calcium [Mass/Vol] 9.4 mg/dL Normal 8.5-10.1 [facility] Comment on above: Performed By: #### T SH, CMP, T7, LIPID #### [facility] [address] [place] [address] Dr. Michelle Cali Chloride [Moles/Vol] 104 mmol/L Normal 98-107 [facility] Comment on above: Performed By: #### T SH, CMP, T7, LIPID #### [facility] [address] [place] [address] Dr. Michelle Cali CO2 [Moles/Vol] 27.7 mmol/L Normal 21.0-32.0 [facility] Comment on above: Performed By: #### T SH, CMP, T7, LIPID #### [facility] [address] [place] [address] Dr. Michelle Cali Creatinine [Mass/Vol] 0.63 mg/dL Normal 0.55-1.02 [facility] Comment on above: Performed By: #### T SH, CMP, T7, LIPID #### [facility] [address] [address] [address] Michelle Cali EGFR-AF AZERBAIJANI >60 Normal >=60 [facility] Comment on above: Performed By: #### T SH, CMP, T7, LIPID #### [facility] [address] [address] [address] Michelle Cali EGFR-NON AF AZERBAIJANI >60 Normal >=60 [facility] Comment on above: Performed By: #### T SH, CMP, T7, LIPID #### [facility] [address] [address] [address] Michelle Cali Globulin (S) [Mass/Vol] 4.2 g/dL Normal [facility] Comment on above: Performed By: #### T SH, CMP, T7, LIPID #### [facility] [address] [place] [address] Dr. Michelle Cali Glucose [Mass/Vol] 83 mg/dL Normal 74-106 [facility] Comment on above: Performed By: #### T SH, CMP, T7, LIPID #### [facility] [address] [place] [address] Dr. Michelle Cali Potassium [Moles/Vol] 3.9 mmol/L Normal 3.5-5.1 [facility] Comment on above: Performed By: #### T SH, CMP, T7, LIPID #### [facility] [address] [place] [address] Dr. Michelle Cali Protein [Mass/Vol] 8.5 g/dL Critically high 6.4-8.2 [facility] Comment on above: Performed By: #### T SH, CMP, T7, LIPID #### [facility] [address] [address] [address] Michelle Cali Sodium [Moles/Vol] 140 mmol/L Normal 136-145 [facility] Comment on above: Performed By: #### T SH, CMP, T7, LIPID #### [facility] [address] [place] [address] Dr. Michelle Cali Urea nitrogen [Mass/Vol] 9.0 mg/dL Normal 7.0-18.0 [facility] Comment on above: Performed By: #### T SH, CMP, T7, LIPID #### [facility] [address] [place] [address] Dr. Michelle Cali Urea nitrogen/Creatinine [Mass ratio] 14.3 mg/mg Normal [facility] Comment on above: Performed By: #### T SH, CMP, T7, LIPID #### [facility] [address] [place], [place] [address] Dr. Michelle Cali TSHon 09-18-2022 TSH 1.245 uIU/mL Normal 0.358-3.740 [facility] Comment on above: Performed By: #### T SH, CMP, T7, LIPID #### [facility] [address] [place], [place] [address] ABD/PELV W CONon [...] by: JEFFREY BEGUM Date: 2022-07-06 01:26 Normal [facility] CBC AUTO DIFFon 07-05-2022 BASO # 0.1 103/ul Normal 0.0-0.1 [facility] Comment on above: Performed By: #### C BC #### [facility] [address] [place] [address] Dr. Michelle Cali Basophils/100 WBC (Bld) 0.9 % Normal 0.2-2.0 [facility] Comment on above: Performed By: #### C BC #### [facility] [address] [place] [address] Dr. Michelle Cali EO # 0.1 103/ul Normal 0.0-0.7 [facility] Comment on above: Performed By: #### C BC #### [facility] [address] [place] [address] Dr. Michelle Cali Eosinophils/100 WBC (Bld) 1.0 % Normal 0.9-7.0 [facility] Comment on above: Performed By: #### C BC #### [facility] [address] [place] [address] Dr. Michelle Cali Erythrocyte distribution width (RBC) [Ratio] 12.5 % Normal 11.0-15.0 [facility] Comment on above: Performed By: #### C BC #### [facility] [address] [place] [address] Dr. Michelle Cali Hematocrit (Bld) [Volume fraction] 39.6 % Normal 36.0-48.0 [facility] Comment on above: Performed By: #### C BC #### [facility] [address] [place] [address] Dr. Michelle Cali Hemoglobin (Bld) [Mass/Vol] 13.6 g/dL Normal 12.0-16.0 [facility] Comment on above: Performed By: #### C BC #### [facility] [address] [place] [address] Dr. Michelle Cali IG # 0.02 10e3/ul Normal 0.00-0.03 [facility] Comment on above: Performed By: #### C BC #### [facility] [address] [place] [address] Dr. Michelle Cali IG % 0.2 % Normal 0.0-0.5 [facility] Comment on above: Performed By: #### C BC #### [facility] [address] [place] [address] Dr. Michelle Cali LYMPH # 4.0 103/ul Critically high 1.2-3.8 [facility] Comment on above: Performed By: #### C BC #### [facility] [address] [place] [address] Dr. Michelle Cali Lymphocytes/100 WBC (Bld) 44.0 % Normal 20.5-60.0 [facility] Comment on above: Performed By: #### C BC #### [facility] [address] [place] [address] Dr. Michelle Cali MANUAL DIFF REQ NO Normal [facility] Comment on above: Performed By: #### C BC #### [facility] [address] [place] [address] Dr. Michelle Cali MCH (RBC) [Entitic mass] 29.7 pg Normal 26.7-34.0 [facility] Comment on above: Performed By: #### C BC #### [facility] [address] [place] [address] Dr. Michelle Cali MCHC (RBC) [Mass/Vol] 34.3 g/dL Normal 29.9-35.2 [facility] Comment on above: Performed By: #### C BC #### [facility] [address] [place] [address] Dr. Michelle Cali MCV (RBC) [Entitic vol] 86.5 fL Normal 81.0-99.0 [facility] Comment on above: Performed By: #### C BC #### [facility] [address] [place] [address] Dr. Michelle Cali MONO # 0.6 103/ul Normal 0.3-0.8 [facility] Comment on above: Performed By: #### C BC #### [facility] [address] [place] [address] Dr. Michelle Cali Monocytes/100 WBC (Bld) 6.7 % Normal 1.7-12.0 [facility] Comment on above: Performed By: #### C BC #### [facility] [address] [place] [address] Dr. Michelle Cali NEUT # 4.2 103/ul Normal 1.4-6.5 [facility] Comment on above: Performed By: #### C BC #### [facility] [address] [place] [address] Dr. Michelle Cali Neutrophils/100 WBC (Bld) 47.2 % Normal 43.0-75.0 [facility] Comment on above: Performed By: #### C BC #### [facility] [address] [place] [address] Dr. Michelle Cali Platelet mean volume (Bld) [Entitic vol] 11.4 fL Normal 9.5-13.5 [facility] Comment on above: Performed By: #### C BC #### [facility] [address] [place] [address] Dr. Michelle Cali PLT 342 103/ul Normal 150-450 [facility] Comment on above: Performed By: #### C BC #### [facility] [address] [place] [address] Dr. Michelle Cali RBC 4.58 106/ul Normal 4.20-5.40 [facility] Comment on above: Performed By: #### C BC #### [facility] [address] [place] [address] Dr. Michelle Cali WBC 9.0 103/ul Normal 4.0-11.0 [facility] Comment on above: Performed By: #### C BC #### [facility] [address] [place] [address] Dr. Michelle Cali PREG HCG QUALon 07-05-2022 , QUAL Negative Normal NEGATIVE [facility] Comment on above: Performed By: #### P REG #### [facility] [address] [place] [address] Dr. Michelle Cali PROF 14(COMP METB)on 022 Albumin [Mass/Vol] 4.4 g/dL Normal 3.4-5.0 [facility] Comment on above: Performed By: #### C BC #### [facility] [address] [place] [address] Dr. Michelle Cali Albumin/Globulin [Mass ratio] 1.1 {ratio} Normal [facility] Comment on above: Performed By: #### C BC #### [facility] [address] [place] [address] Dr. Michelle Cali ALP [Catalytic activity/Vol] 82 U/L Normal 46-116 [facility] Comment on above: Performed By: #### C BC #### [facility] [address] [place] [address] Dr. Michelle Cali ALT [Catalytic activity/Vol] 22 U/L Normal 14-59 [facility] Comment on above: Performed By: #### C BC #### [facility] [address] [place] [address] Dr. Michelle Cali Anion gap [Moles/Vol] 9.3 mmol/L Normal [facility] Comment on above: Performed By: #### C BC #### [facility] [address] [place] [address] Dr. Michelle Cali AST [Catalytic activity/Vol] 17 U/L Normal 15-37 [facility] Comment on above: Performed By: #### C BC #### [facility] [address] [place] [address] Dr. Michelle Cali Bilirubin [Mass/Vol] 0.5 mg/dL Normal 0.2-1.0 [facility] Comment on above: Performed By: #### C BC #### [facility] [address] [place] [address] Dr. Michelle Cali Calcium [Mass/Vol] 9.1 mg/dL Normal 8.5-10.1 [facility] Comment on above: Performed By: #### C BC #### [facility] [address] [place] [address] Dr. Michelle Cali Chloride [Moles/Vol] 104 mmol/L Normal 98-107 [facility] Comment on above: Performed By: #### C BC #### [facility] [address] [address] [address] Michelle Cali CO2 [Moles/Vol] 26.8 mmol/L Normal 21.0-32.0 [facility] Comment on above: Performed By: #### C BC #### [facility] [address] [address] [address] Michelle Cali Creatinine [Mass/Vol] 0.73 mg/dL Normal 0.55-1.02 [facility] Comment on above: Performed By: #### C BC #### [facility] [address] [place] [address] Dr. Michelle Cali EGFR-AF AZERBAIJANI >60 Normal >=60 [facility] Comment on above: Performed By: #### C BC #### [facility] [address] [place] [address] Dr. Michelle Cali EGFR-NON AF AZERBAIJANI >60 Normal >=60 [facility] Comment on above: Performed By: #### C BC #### [facility] [address] [place] [address] Dr. Michelle Cali Globulin (S) [Mass/Vol] 4.1 g/dL Normal [facility] Comment on above: Performed By: #### C BC #### [facility] [address] [place] [address] Dr. Michelle Cali Glucose [Mass/Vol] 84 mg/dL Normal 74-106 [facility] Comment on above: Performed By: #### C BC #### [facility] [address] [place] [address] Dr. Michelle Cali Potassium [Moles/Vol] 3.1 mmol/L Critically low 3.5-5.1 [facility] Comment on above: Performed By: #### C BC #### [facility] [address] [place] [address] Dr. Michelle Cali Protein [Mass/Vol] 8.5 g/dL Critically high 6.4-8.2 [facility] Comment on above: Performed By: #### C BC #### [facility] [address] [place] [address] Dr. Michelle Cali Sodium [Moles/Vol] 137 mmol/L Normal 136-145 [facility] Comment on above: Performed By: #### C BC #### [facility] [address] [address] [address] Michelle Cali Urea nitrogen [Mass/Vol] 13.0 mg/dL Normal 7.0-18.0 [facility] Comment on above: Performed By: #### C BC #### [facility] [address] [address] [address] Michelle Cali Urea nitrogen/Creatinine [Mass ratio] 17.8 mg/mg Normal [facility] Comment on above: Performed By: #### C BC #### [facility] [address] [address] [address] Michelle Cali Vital Signs Date Time Vital Sign Value Performing Clinician Faci lity 04-10-2025 09:05-0400 Body mass index (BMI) [Ratio] 28.75 kg/m2 Roosevelt Mauricio DO Work Phone: [facility] 04-10-2025 09:05-0400 Body weight 75.98 kg Roosevelt Mauricio DO Work Phone: [facility] 04-10-2025 09:05-0400 Diastolic blood pressure 80 mm[Hg] Roosevelt Mauricio DO Work Phone: [facility] 04-10-2025 09:05-0400 Systolic blood pressure 110 mm[Hg] Roosevelt Mauricio DO Work Phone: [facility] 03-09-2025 13:49-0400 Body mass index (BMI) [Ratio] 27.48 kg/m2 Mauricio Ob [facility] 03-09-2025 13:49-0400 Body weight 72.63 kg Mauricio Ob [facility] 03-09-2025 13:49-0400 Diastolic blood pressure 70 mm[Hg] Mauricio Ob [facility] 03-09-2025 13:49-0400 Systolic blood pressure 110 mm[Hg] Mauricio Ob [facility] 01-19-2025 11:20-0400 Body mass index (BMI) [Ratio] 29.18 kg/m2 Adan Pimentel MD Work Phone: [facility] 01-19-2025 11:20-0400 Body weight 77.11 kg Adan Pimentel MD Work Phone: [facility] 09-01-2024 14:46-0500 Body mass index (BMI) [Ratio] 29.32 kg/m2 Roosevelt Mauricio DO Work Phone: [facility] 09-01-2024 14:46-0500 Body weight 77.47 kg Roosevelt Mauricio DO Work Phone: [facility] 09-01-2024 14:46-0500 Diastolic blood pressure 74 mm[Hg] Roosevelt Mauricio DO Work Phone: [facility] 09-01-2024 14:46-0500 Systolic blood pressure 114 mm[Hg] Roosevelt Mauricio DO Work Phone: [facility] 08-01-2024 14:48-0500 Body mass index (BMI) [Ratio] 29.94 kg/m2 Agata PRUITT Work Phone: [facility] 08-01-2024 14:48-0500 Body weight 79.11 kg Agata PRUITT Work Phone: [facility] 08-01-2024 14:48-0500 Diastolic blood pressure 82 mm[Hg] Agata PRUITT Work Phone: [facility] 08-01-2024 14:48-0500 Systolic blood pressure 122 mm[Hg] Agata Meza PA Work Phone: [facility] 07-07-2024 10:55-0500 Body mass index (BMI) [Ratio] 33.3 kg/m2 Roosevelt Mauricio DO Work Phone: [facility] 07-07-2024 10:55-0500 Body weight 88 kg Roosevelt Mauricio DO Work Phone: [facility] 07-07-2024 10:55-0500 Diastolic blood pressure 74 mm[Hg] Roosevelt Mauricio DO Work Phone: [facility] 07-07-2024 10:55-0500 Systolic blood pressure 112 mm[Hg] Roosevelt Mauricio DO Work Phone: [facility] 06-29-2024 17:16-0500 Body mass index (BMI) [Ratio] 32.81 kg/m2 Roosevelt Mauricio DO Work Phone: [facility] 06-29-2024 17:16-0500 Body weight 86.69 kg Roosevelt Mauricio DO Work Phone: [facility] 06-29-2024 17:16-0500 Diastolic blood pressure 72 mm[Hg] Roosevelt Mauricio DO Work Phone: [facility] 06-29-2024 17:16-0500 Systolic blood pressure 110 mm[Hg] Roosevelt Mauricio DO Work Phone: [facility] 06-22-2024 16:27-0500 Body mass index (BMI) [Ratio] 33.03 kg/m2 Roosevelt Mauricio DO Work Phone: [facility] 06-22-2024 16:27-0500 Body weight 87.27 kg Roosevelt Mauricio DO Work Phone: [facility] 06-22-2024 16:27-0500 Diastolic blood pressure 68 mm[Hg] Roosevelt Mauricio DO Work Phone: [facility] 06-22-2024 16:27-0500 Systolic blood pressure 110 mm[Hg] Roosevelt Mauricio DO Work Phone: [facility] 06-14-2024 15:03-0500 Body mass index (BMI) [Ratio] 33.09 kg/m2 Roosevelt Mauricio DO Work Phone: [facility] 06-14-2024 15:03-0500 Body weight 87.45 kg Roosevelt Mauricio DO Work Phone: [facility] 06-14-2024 15:03-0500 Diastolic blood pressure 76 mm[Hg] Roosevelt Mauricio DO Work Phone: [facility] 06-14-2024 15:03-0500 Systolic blood pressure 120 mm[Hg] Roosevelt Mauricio DO Work Phone: [facility] 06-07-2024 15:14-0500 Body mass index (BMI) [Ratio] 32.61 kg/m2 Agata Susana PA Work Phone: [facility] 06-07-2024 15:14-0500 Body weight 86.18 kg Agata Susana PA Work Phone: [facility] 06-07-2024 15:14-0500 Diastolic blood pressure 74 mm[Hg] Agata [place] PA Work Phone: [facility] 06-07-2024 15:14-0500 Systolic blood pressure 116 mm[Hg] Agata Susana PA Work Phone: [facility] 05-24-2024 15:21-0500 Body mass index (BMI) [Ratio] 32.61 kg/m2 Agata Susana PA Work Phone: [facility] 05-24-2024 15:21-0500 Body weight 86.18 kg Agata [place] PA Work Phone: [facility] 05-24-2024 15:21-0500 Diastolic blood pressure 70 mm[Hg] Agata Susana PA Work Phone: [facility] 05-24-2024 15:21-0500 Systolic blood pressure 110 mm[Hg] Agata [place] PA Work Phone: [facility] 05-10-2024 14:52-0400 Body mass index (BMI) [Ratio] 32.27 kg/m2 Roosevelt Mauircio DO Work Phone: [facility] 05-10-2024 14:52-0400 Body weight 85.28 kg Roosevelt Mauricio DO Work Phone: [facility] 05-10-2024 14:52-0400 Diastolic blood pressure 76 mm[Hg] Roosevelt Mauricio DO Work Phone: [facility] 05-10-2024 14:52-0400 Systolic blood pressure 112 mm[Hg] Roosevelt Mauricio DO Work Phone: [facility] 04-27-2024 15:49-0400 Body mass index (BMI) [Ratio] 31.41 kg/m2 Agata Susana PA Work Phone: [facility] 04-27-2024 15:49-0400 Body weight 83.01 kg Agata [place] PA Work Phone: [facility] 04-27-2024 15:49-0400 Diastolic blood pressure 68 mm[Hg] Agata Susana PA Work Phone: [facility] 04-27-2024 15:49-0400 Systolic blood pressure 110 mm[Hg] Agata [place] PA Work Phone: [facility] 03-30-2024 15:49-0400 Body mass index (BMI) [Ratio] 30.4 kg/m2 Agata [place] PA Work Phone: [facility] 03-30-2024 15:49-0400 Body weight 80.34 kg Agata [place] PA Work Phone: [facility] 03-30-2024 15:49-0400 Diastolic blood pressure 60 mm[Hg] Agata [place] PA Work Phone: [facility] 03-30-2024 15:49-0400 Systolic blood pressure 100 mm[Hg] Agata Susana PA Work Phone: [facility] Healthcare Encounters Encounter Date Encounter Type Care Provider Facility Start: 04-15-2025 End: 04-15-2025 ambulatory Maxx Chan [facility] Work Phone: Start: 04-15-2025 End: 04-15-2025 Departed Referred Maxx Chan MD -LAB [facility] Start: 04-10-2025 End: 04-10-2025 [place] flowsheet Roosevelt Mauricio DO Work Phone: [facility] Start: 04-10-2025 End: 04-10-2025 Bamboo flowsheet Roosevelt Mauricio DO Work Phone: [facility] Start: 04-10-2025 End: 04-10-2025 ambulatory ROOSEVELT MAURICIO Not Available Start: 04-10-2025 End: 04-10-2025 flow sheet Roosevelt Mauricio DO Work Phone: [facility] Comment on above: Second trimester pre gnancy ([facility]); 14 weeks gestation of ([facility]) Start: 03-09-2025 End: 03-09-2025 Clinisync Result Encounter Roosevelt Mauricio DO Work Phone: [facility] Unsolicited Start: 03-09-2025 End: 03-09-2025 Clinisync Result Encounter Roosevelt Mauricio DO Work Phone: [facility] Unsolicited Start: 03-09-2025 End: 03-09-2025 Office outpatient visit 5 minutes Mauricio Nurse [facility] Comment on above: GA: 9w4d Start: 03-09-2025 End: 03-09-2025 ambulatory ROOSEVELT MAURICIO Not Available Start: 02-02-2025 End: 02-02-2025 Clinisync Result Encounter Roosevelt Mauircio DO Work Phone: [facility] Unsolicited [...] Dx) Start: 01-19-2025 End: 01-19-2025 ambulatory ADAN E RAMBASEK Not Available Start: 09-01-2024 End: 09-01-2024 ambulatory ROOSEVELT MAURICIO Not Available Start: 09-01-2024 End: 09-01-2024 care visit Roosevelt Mauricio DO Work Phone: [facility] Comment on above: 6 weeks f ollow-up Start: 08-01-2024 End: 08-01-2024 Postop follow up visit related to original px Agata PRUITT Work Phone: [facility] Comment on above: S/P section ; Postop check Start: 08-01-2024 End: 08-01-2024 ambulatory AGATA MEZA Not Available Start: 08-01-2024 End: 08-01-2024 Bamboo flowsheet Agata PRUITT Work Phone: [facility] Start: 08-01-2024 End: 08-01-2024 Bamboo flowsheet Agata PRUITT Work Phone: [facility] Start: 07-13-2024 End: 07-13-2024 Clinisync Result Encounter Roosevelt Mauricio DO Work Phone: [facility] Unsolicited Start: 07-13-2024 End: 07-13-2024 Clinisync Result Encounter Roosevelt Mauricio DO Work Phone: [facility] Unsolicited Start: 07-13-2024 End: 07-13-2024 ambulatory Roosevelt Mauricio Facility:[facility] Start: 07-12-2024 End: 07-12-2024 ambulatory Roosevelt Mauricio Facility:[facility] Start: 07-11-2024 End: 07-11-2024 Clinisync Result Encounter [...] Start: 06-07-2024 End: 06-07-2024 Bamboo flowsheet Agata Meza PA Work Phone: [...] PA Work Phone: [facility] Start: 05-10-2024 [...] 04-27-2024 Bamboo flowsheet Agata PRUITT Work Phone: [facility] Start: 04-27-2024 End: 04-27-2024 Bamboo flowsheet Agata PRUITT Work Phone: [facility] Start: 04-08-2024 End: 04-08-2024 Clinisync Result Encounter Roosevelt Mauricio DO Work Phone: [facility] Department Unsolicited Start: 04-08-2024 End: 04-08-2024 Clinisync Result Encounter Roosevelt Mauricio DO Work Phone: [facility] Department Unsolicited Start: 03-30-2024 End: 03-30-2024 flow sheet Agata PRUITT Work Phone: [facility] Comment on above: 24 weeks gestation o f ; Diabetes mellitus screening; Gastroesophageal reflux in Start: 03-30-2024 End: 03-30-2024 Bamboo flowsheet Agata PRUITT Work Phone: [facility] Start: 03-30-2024 End: 03-30-2024 Bamboo flowsheet Agata PRUITT Work Phone: [facility] Start: 03-12-2024 End: 03-16-2024 Clinisync Result Encounter Agata PRUITT Work Phone: [facility] Unsolicited Start: 03-12-2024 End: 03-16-2024 Clinisync Result Encounter Agata PRUITT Work Phone: [facility] Unsolicited Start: 12-04-2022 End: 12-04-[address] SHANTELL SIMON . Facility:[facility] Start: 09-18-2022 End: 09-19-[address] JESUS TSANG . Facility:[facility] Start: 07-05-2022 End: 07-06-[address] JESUS TSANG . Facility:[facility] Start: 05-23-2022 End: 05-23-[address] JESUS TSANG . Facility: Procedures Date Procedure Procedure Detail Performing Clinician Start: 04-10-2025 Urnls dip stick/tabl et rgnt non-auto w/o micrscp Roosevelt Mauricio DO Work Phone: Start: 03-09-2025 ALL CBC WITH AUTO DIFF Roosevelt Mauricio DO Work Phone: Start: 03-09-2025 Urnls dip [...] Treatment Date Care Activity Detail Author Start: 05-09-2025 End: 05-09-2025 Patient encounter procedure 05/09/2025 8:30 AM EDT Routine [facility] [address] [place] [address] Agata Meza PA [address] [place] [address] [facility] Start: 04-15-2025 Bacteria identified in Urine by Culture Urine Culture [facility] Start: 04-15-2025 Urine culture [facility] Start: 04-10-2025 End: 04-10-2025 Patient encounter procedure 04/10/2025 8:50 AM EDT Routine [facility] [address] [place] [id number] Roosevelt Martínez DO [address] [place] [address] [facility] Start: 03-27-2025 End: 03-27-2025 Patient encounter procedure [facility] Start: 03-09-2025 End: 03-09-2026 ABO/Rh ABO/Rh Lab Routine Missed menses , unspecified gestational age ([facility]) Expected: 03/09/2025 (Approximate), Expires: 03/09/2026 [facility] Comment on above: Expected: 03/09/2025 (Approximate), Expires: 03/09/2026 Start: 03-09-2025 End: 03-09-2026 Blood type and Indirect antibody screen panel - Blood Type and screen Lab Routine Missed menses , unspecified gestational age ([facility]) Expected: 03/09/2025 (Approximate), Expires: 03/09/2026 [facility] Comment on above: Expected: 03/09/2025 (Approximate), Expires: 03/09/2026 Start: 03-09-2025 End: 03-09-2026 Drugs of abuse panel - Urine by Screen method Rapid drug screen, urine Lab Routine , unspecified gestational age ([facility]) Encounter for supervision of normal first in first trimester ([facility]) Expected: 03/09/2025 (Approximate), Expires: 03/09/2026 [facility] Comment on above: Expected: 03/09/2025 (Approximate), Expires: 03/09/2026 Start: 02-28-2025 End: 05-31-2025 US Pelvis transvaginal US OB transvaginal Imaging Routine Missed menses Positive urine test ([facility]) Expected: 02/28/2025, Expires: 05/31/2025 [facility] Work Phone: Comment on above: Expected: 02/28/2025 , Expires: 05/31/2025 Start: 01-19-2025 End: 01-19-2025 Patient encounter procedure 01/19/2025 11:00 AM EDT Office Visit [facility] [address] [facility] [address] [place] [address] Adan Pimentel MD [address] [facility] [address] [place] [address] Arrived [facility] Comment on above: Arrived Start: 08-01-2024 End: 08-01-2024 Patient encounter procedure 08/01/2024 2:40 PM EST Office Visit [facility] [address] [place] [address] Agata Meza PA [address] [place], [facility] Arrived [facility] Comment on above: Arrived Start: 07-07-2024 End: 07-07-2024 Patient encounter procedure 07/07/2024 10:20 AM EST Routine [facility] [address] [place] [address] Roosevelt Martínez DO [address] [facility] [address] [address] [place], [facility] Start: 06-29-2024 End: 06-29-2024 [...] [facility] [address] [place] [id number] Roosevelt Martínez, DO [address] [place] [address] [facility] Start: 06-07-2024 End: 06-07-2024 Patient encounter procedure 06/07/2024 2:50 PM EST Routine [facility] [address] [place] [phone] Agata Meza, PA [address] [place] [address] [facility] Start: 05-24-2024 End: 05-24-2024 Patient encounter procedure 05/24/2024 2:40 PM EST Routine [facility] [address] [place] [id number] Agata Meza, PA [address] [place] [address] [facility] Start: 05-10-2024 End: 05-10-2024 Patient encounter procedure 05/10/2024 2:50 PM EDT Routine [facility] [address] [place] [phone] Roosevelt Martínez, DO [address] [place] [address] Arrived [facility] Comment on above: Arrived Start: 05-10-2024 End: 05-10-2024 Professional / ancillary services management 05/10/2024 2:00 PM EDT Ancillary Procedure [facility] [address] [place] [id number] [facility] Start: 04-27-2024 End: 04-27-2024 Patient encounter procedure 04/27/2024 3:40 PM EDT Routine [facility] [address] [place] [phone] Agata Meza PA [address] [facility] [place] [address] [facility] Start: 04-27-2024 End: 04-27-2025 US for US OB SCAN FOR GROWTH Imaging Routine size inconsistent with dates Expected: 04/27/2024 (Approximate), Expires: 04/27/2025 [facility] Work Phone: Comment on above: Expected: 04/27/2024 (Approximate), Expires: 04/27/2025 Start: 03-30-2024 End: 03-30-2024 Patient encounter procedure [facility] Comment on above: Arrived Start: 03-30-2024 End: 03-30-2025 CBC panel - Blood by Automated count CBC Lab Routine Diabetes mellitus screening Expected: 03/30/2024 (Approximate), Expires: 03/30/2025 [facility] Work Phone: Comment on above: Expected: 03/30/2024 (Approximate), Expires: 03/30/2025 Start: 03-30-2024 End: 03-30-2025 Measurement of glucose 1 hour after glucose challenge for glucose tolerance test Glucose tolerance, 1 hour Lab Routine Diabetes mellitus screening Expected: 03/30/2024 (Approximate), Expires: 03/30/2025 [facility] Comment on above: Expected: 03/30/2024 (Approximate), Expires: 03/30/2025 Bacteria identified in Urine by Culture Urine culture Microbiology Routine Missed menses Ordered: 03/09/2025 [facility] Comment on above: Ordered: 03/09/2025 CBC W Auto Different ial panel - Blood CBC and differential Lab Routine Missed menses , unspecified gestational age ([facility]) Ordered: 03/09/2025 [facility] Comment on above: Ordered: 03/09/2025 Hemoglobin A1c/Hemoglobin.total in Blood Hemoglobin A1c Lab Routine Missed menses , unspecified gestational age ([facility]) Ordered: 03/09/2025 [facility] Comment on above: Ordered: 03/09/2025 Hepatitis B virus surface Ag [Presence] in Serum or Plasma by Immunoassay Hepatitis B surface antigen Lab Routine Missed menses , unspecified gestational age ([facility]) Ordered: 03/09/2025 [facility] Comment on above: Ordered: 03/09/2025 Hepatitis C virus Ab [Presence] in Serum or Plasma by Immunoassay Hepatitis C antibody Lab Routine Missed menses , unspecified gestational age ([facility]) Ordered: 03/09/2025 [facility] Comment on above: Ordered: 03/09/2025 HIV-1/HIV-2 antigen/antibody combination immunoassay HIV-1 and HIV-2 antibodies Lab Routine Missed menses , unspecified gestational age ([facility]) Ordered: 03/09/2025 [facility] Comment on above: Ordered: 03/09/2025 Reagin Ab [Presence] in Serum by RPR RPR Lab Routine Missed menses , unspecified gestational age ([facility]) Ordered: 03/09/2025 [facility] Comment on above: Ordered: 03/09/2025 Rubella antibody, IgG Rubella an tibody, IgG Lab Routine Missed menses , unspecified gestational age ([facility]) Ordered: 03/09/2025 [facility] Comment on above: Ordered: 03/09/2025 US Pelvis transvaginal US OB tra nsvaginal Imaging Routine Missed menses Positive urine test ([facility]) 03/09/2025 1:28 PM EDT [facility] Payers Date Payer Category Payer Medicaid [id number] 2024 Medicaid [id number] 2018 [facility] [id number] 2018 Unknown BCBS BCBS [id number] 2018-Present [phone] [address] [place] [address] [id number]. [id number] 2001 Unknown [id number] 2.16.840.1.295669.3.579.2. 593 2001 Unknown [id number] 2.16.840.1.632995.3.579.2. 593 2001 Unknown [id number] 2.16.840.1.205520.3.579.2. 593 2001 Unknown [id number] 2.16.840.1.538021.3.579.2. 593 2001 Unknown [id number] 2.16.840.1.505525.3.579.2. 1259 2001 Unknown [id number] 2.16.840.1.259350.3.579.2. 1259 2001 Unknown [id number] 2.16.840.1.198338.3.579.2. 1259 2001 Unknown [id number] 2.16.840.1.991548.3.579.2. 1259 2001 Unknown [id number] 2.16.840.1.633349.3.579.2. 1259 2001 Unknown [id number] 2.16.840.1.796829.3.579.2. 1259 2001 Unknown [id number] 2.16.840.1.783685.3.579.2. 9 2001 Unknown [id number] 2.16.840.1.364247.3.579.2. 1258 2001 Unknown [id number] 2.16.840.1.986656.3.579.2. 1258 2001 Unknown [id number] 2.16.840.1.887035.3.579.2. 9 2001 Unknown [id number] 2.16.840.1.214083.3.579.2. 1258 2001 Unknown [id number] 2.16.840.1.061699.3.579.2. 1258 2001 Unknown [id number] 2.16.840.1.785548.3.579.2. 1258 2001 Unknown [id number] 2.16.840.1.067640.3.579.2. 1259 1959 Self-pay 1959 Unknown [id number] Unknown [id number] 2.16.840.1.634852.3.579.2. 531 Unknown [id number] 2.16.840.1.880931.3.579.2. 531 Unknown [id number] 2.16.840.1.617161.3.579.2. 531 Social History Date Type Detail Facility Start: 02-07-2021 End: 11-19-2023 Tobacco smoking status [facility] Never smoked tobacco [facility] Start: 11-19-2023 Tobacco use and exposure Smokeless tobacco non-user [facility] Start: 03-02-2024 End: 03-30-2024 Alcoholic beverage intake Lifetime non-drinker (finding) [facility] Start: 11-19-2023 End: 01-19-2025 History of Social function [facility] Start: 11-19-2023 End: 01-19-2025 Tobacco use panel [facility] Start: 04-20-2023 Alcohol Comment Caffeine intake: non e [facility] Start: 10-27-2023 [facility] Start: 2001 Sex assigned at Not on file [facility] Start: 05-10-2024 End: 03-09-2025 Alcoholic beverage intake Current drinker of alcohol (finding) [facility] Sex Female (finding) [facility] Start: 2001 Sex Assigned At Female F [facility] Clinical Notes 03-30-2024 to 04-10-2025 Dali Barroso NP - 04/10/2025 8:50 AM Jennifer Burleson LPN - 03/09/2025 1:30 PM Jyotsna Pimentel MD - 01/19/2025 11:00 AM Ajay Oden LPN - 09/01/2024 2:20 PM EST Note Date & Type Note Facility 04-10-2025 History of Presen t illness Narrative Reason for Appointment: Patient ID: Latha Cuevas is a 25 y.o. female who presents for Routine Visit Patient presents today for Return OB appointment. 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 Exam conducted with a meat carver present. Vitals: Estimated body mass index is 28.75 kg/m as calculated from the following: Height as of 04/21/23: 5' 4 . Weight as of this encounter: 167 lb 8 oz. BP: 110/80 No LMP recorded. Patient is . ASSESSMENT & PLAN ICD-10-CM 1. Second trimester ([facility]) Z34.92 POCT urinalysis dipstick manually resulted 2. 14 weeks gestation of ([facility]) Z3A.14 Return OB: Patient presents today for a routine obstetrics appointment. Patient is currently 14w1d . Patient states she is doing well [...] week for routine OB appointment. 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 [...] this visit: History of shingles Hx of Guillain-Orfordville syndrome Missed menses - US OB transvaginal; Future - Type and screen; Future - ABO/Rh; Future - CBC and differential - Hemoglobin A1c - RPR - Rubella antibody, IgG - Hepatitis B surface antigen - Hepatitis C antibody - HIV-1 and HIV-2 antibodies - Urine culture - POCT , urine manually resulted - POCT urinalysis dipstick manually resulted Positive urine test ([facility]) - US OB transvaginal; Future , unspecified gestational age ([facility]) - Type and screen; Future - ABO/Rh; Future - CBC and differential - Hemoglobin A1c - RPR - Rubella antibody, IgG - Hepatitis B surface antigen - Hepatitis C antibody - HIV-1 and HIV-2 antibodies - Rapid drug screen, urine; Future Encounter for supervision of normal first in first trimester ([facility]) - Rapid drug screen, urine; Future Nurse Note: Follow Up: Patient is to have labs drawn at directed and return to office for initial OB appointment with provider. Patient may call office as needed with any concerns or questions. Nurse Visit Completed by: Aimee Burleson LPN documented in this encounter [facility] 01-19-2025 History of Presen t illness Narrative [...] should problems arise. 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 Exam conducted with a meat carver present. Vitals: Estimated body mass index is [...] CT is scheduled for tomorrow @8:30am @ [facility]. Patient is going to return to work on Thursday and will obtain a return to work note. Patient will continue applying heat. Patient declines control at this time. Patient to return to clinic for routine annual appointment. 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 Exam conducted with a meat carver present. 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 Exam conducted with a meat carver present. 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 History of shingles 11/23/2023 History [...] Eczema Fatigue Gastritis without bleeding GBS (Guillain Orfordville syndrome) (CMS/HCC) Guillain Andrews syndrome (CMS/HCC) Hyperplasia [...] Eczema Fatigue Gastritis without bleeding GBS (Guillain Orfordville syndrome) (CMS/HCC) Guillain Andrews syndrome (CMS/HCC) Hyperplasia [...] by EDMOND Osborn documented in this encounter [facility] 06-14-2024 History of Presen t [...] (upper airway resistance syndrome) 11/19/2023 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 Exam conducted with a meat carver present. 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 History of shingles 11/23/2023 History [...] Eczema Fatigue Gastritis without bleeding GBS (Guillain Orford[place] syndrome) (CMS/HCC) Guillain Andrews syndrome (CMS/HCC) Hyperplasia [...] Eczema Fatigue Gastritis without bleeding GBS (Guillain Orford[place] syndrome) (CMS/HCC) Guillain Andrews syndrome (CMS/HCC) Hyperplasia [...] of: EDMOND Osborn documented in this encounter [facility] 05-24-2024 History of Presen t [...] (upper airway resistance syndrome) 11/19/2023 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 History of shingles 11/23/2023 History [...] Eczema Fatigue Gastritis without bleeding GBS (Guillain Orford[place] syndrome) (CMS/HCC) Guillain Andrews syndrome (CMS/HCC) Hyperplasia [...] Eczema Fatigue Gastritis without bleeding GBS (Guillain Orford[place] syndrome) (CMS/HCC) Guillain Andrews syndrome (CMS/HCC) Hyperplasia [...] of: EDMOND Osborn documented in this encounter [facility] 05-10-2024 History of Presen t [...] (upper airway resistance syndrome) 11/19/2023 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 Exam conducted with a meat carver present. 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 History of shingles 11/23/2023 History [...] Eczema Fatigue Gastritis without bleeding GBS (Guillain Orfordville syndrome) (CMS/HCC) Guillain Andrews syndrome (CMS/HCC) Hyperplasia [...] Eczema Fatigue Gastritis without bleeding GBS (Guillain [place] syndrome) (CMS/HCC) Guillain Andrews syndrome (CMS/HCC) Hyperplasia [...] of: EDMOND Osborn documented in this encounter [facility] 03-30-2024 History of Presen t [...] (upper airway resistance syndrome) 11/19/2023 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 Exam conducted with a meat carver present. Vitals: Estimated body mass index is [...] note* Diagnosis History of shingles Hx of Guillain-[place] syndrome Missed menses Positive urine test ([facility]) , unspecified gestational age ([facility]) Encounter for supervision of normal first in first trimester ([facility]) [facility] Diagnosis Second trimester ([facility]) state, incidental 14 weeks gestation of ([facility]) documented in this encounter [facility] noteNo assessment information availableL[facility] Work Phone: Reason for referral (narrative)No reason for referral information availableLutheran [facility] Ctr Work Phone: Summary Purpose Family History No Family History Records Found Relationship Condition Age at Onset Recorded Date/T blake Not Specified No pertinent family history Unknown Advance Directives No Advanced Directives Records Found Advance Directive Response Recorded Date/ Time Advance Directives No February 02 11:16am Additional Source Comments INFORMATION SOURCE (unrecogn ized section and content) DATE CREATED AUTHOR 12/09/2022 [facility] DATE CREATED AUTHOR AUTHOR'S ORGANIZ ATION 04/10/2025 [facility] EPIC DATE CREATED AUTHOR AUTHOR'S ORGANIZ ATION 04/22/2025 [facility] Reason for Visit (unrecogniz ed [...] Care Teams (unrecognized sec tion and content) Vessel Scrapper Relationship Specialty Start Date End Date Jesus Tsang MD [address] [facility], [phone] PCP - General Family Medicine 04/21/23 Vessel Scrapper Relationship Specialty Start Date End Date Jesus Tsang MD [address] [phone] PCP - General Family Medicine 04/21/23 Vessel Scrapper Relationship Specialty Start Date End Date Jesus Tsang MD [address] [phone] PCP - General Family Medicine 04/21/23 Vessel Scrapper Relationship Specialty Start Date End Date Jesus Tsang MD [address] [facility] [facility], [phone] PCP - General Family Medicine 04/21/23 Vessel Scrapper Relationship Specialty Start Date End Date Jesus Tsang MD [address] [facility] [facility], [phone] PCP - General Family Medicine 04/21/23 Vessel Scrapper Relationship Specialty Start Date End Date Jesus Tsang MD [address] [phone] PCP - General Family Medicine 04/21/23 Vessel Scrapper Relationship Specialty Start Date End Date Jesus Tsang MD [address] [place] [facility] [place] [phone] PCP - General Family Medicine 04/21/23 Vessel Scrapper Relationship Specialty Start Date End Date Jesus Tsang MD [address] [place] [facility] [place] [address] PCP - General Family Medicine 04/21/23 Vessel Scrapper Relationship Specialty Start Date End Date Jesus Tsang MD [address] [place] [facility] [place] [phone] PCP - General Family Medicine 04/21/23 Vessel Scrapper Relationship Specialty Start Date End Date Jesus Tsang MD [address] [place] [place] [phone] PCP - General Family Medicine 04/21/23 Vessel Scrapper Relationship Specialty Start Date End Date Jesus Tsang MD [address] [place] [facility] [place] [phone] PCP - General Family Medicine 04/21/23 Vessel Scrapper Relationship Specialty Start Date End Date Jesus Tsang MD PCP - General Family Medicine 04/21/23 Vessel Scrapper Relationship Specialty Start Date End Date Jesus Tsang MD PCP - General Family Medicine 04/21/23 Vessel Scrapper Relationship Specialty Start Date End Date Jesus Tsang MD PCP - General Family Medicine 04/21/23 Vessel Scrapper Relationship Specialty Start Date End Date Jesus Tsang MD PCP - General Family Medicine 04/21/23 Team Status: Inactive Member Role Status Dates Maxx Chan MD Attending Provider Active St art: April 15, 2025 End: April 15, 2025 Goals (unrecognized section and content) Goals may be documented in a n alternate section FOR RECORDS PERTAINING TO PATIENTS WHO ARE [...] BE BASED ON THE PRIMARY CLINICAL RECORDS. [facility] [employer] provides no warranty or guarantee of the accuracy or completeness of information in this document.
--- OUTSIDE RECORDS SUMMARY | 2025-04-26 06:05 | XMS_ITS | Patient Health Record ---
Author Organization [facility] in [place] Address [address] [place] [address] Care Team Providers Care Business Integration Manager Name Role Phone Kentrell Tsang Primary Care Provider [phone] Allergies No Known Allergies Results Component Value Reference Range Notes CT head/brain wo con Reviewed date:09/03/2024 02:00:54 PM Interpretation: Performing Lab: Notes/Report: Source Facility: [place] [address] CT Scan Report Signed Patient: LATHA STEEL MR#: [id number] : 2000 Acct:[id number] Age/Sex: 24 / F ADM Date: 09/02/24 Loc: CT Attending Dr: Jesus Tsang M.D. Ordering Physician: Jesus Tsang M.D. Date of Service: 09/02/24 Procedure(s): CT head/brain wo con Accession Number(s): [id number] cc: Jesus Tsang M.D. [place] [address] Patient Name: LATHA STEEL MRN: [id number] date: 2000 Sex: F Assigned Patient Location: CT Current Patient Location: CT Accession/Order Number: [id number] Exam Date: 09/02/2024 08:43 Report Date: 09/02/2024 [...] M.D. Signed By: 09/02/241822 DD/ 19 TD/TT: Wet Cleaner Machine: CBC AUTO DIFF Reviewed date:12/27/2024 09:21:45 PM Interpretation: Performing Lab: Notes/Report: [facility] , White Blood Count 8.3 4.0-11.0 10 [...] 3/uL Performing Lab: see note ML - [facility] LB Upper Respiratory Culture Reviewed date:01/01/2025 12:19:59 PM Interpretation: Performing Lab: Notes/Report: [facility] , Upper Respiratory Culture See Below For Report Upper Respiratory Culture Upper Respiratory Culture Routine respiratory hubert Upper Respiratory Culture Upper Respiratory Culture [facility]formed [facility] Upper Respiratory Culture Upper Respiratory Culture [address] [place] [phone] Upper Respiratory Culture Upper Respiratory Culture Metal Trimmer: Samson Ibarra PhD, Phone: [phone] Upper Respiratory Culture Performing Lab: see note - [facility] LB SEE REPORT - First Officer Id information not found for OBX-specific digital media producer legend ECG 12 lead Reviewed date:12/28/2024 12:51:24 PM Interpretation: Performing Lab: Notes/Report: Source Facility: [place] [address] Electrocardiograph Report Signed Patient: LATHA STEEL MR#: [id number] : 2000 Acct:[id number] Age/Sex: 24 / F ADM Date: 12/27/24 Loc: ER Attending Dr: Ordering Physician: Agata Meza Date of Service: 12/27/24 Procedure(s): ECG 12 lead Accession Number(s): [id number] cc: [facility] Test Date: 2024-12-27 Pat Name: LATHA STEEL Department: Room: - Gender: Female Joy Operator Helper: : 2000 Requested By: 0923 Order Number: [id number] Melinda MD: ANNA LI M.D. Measurements Intervals [place] Rate: 77 P: 48 MN: 172 QRS: 37 QRSD: 102 T: 49 QT: 356 QTc: 388 Interpretive Statements 1100 Sinus rhythm 2420 RSR (QR) in lead V1/V2, consistent with right ventricular conduction delay 9130 borderline ECG Compared to ECG 10/30/2024 15:07:52 No significant changes Electronically Signed On 12-27-2024 21:45:34 EDT by ANNA LI M.D. Dictated By: ANNA LI Signed By: 12/27/242144 DD/ 48 TD/TT: Wet Cleaner Machine: CBC AUTO DIFF Reviewed date:03/09/2025 04:44:58 PM Interpretation: Performing Lab: Notes/Report: [facility] , White Blood Count 10.1 4.0-11.0 10 3/uL Red Blood Count 4.59 4.20-5.40 10 6/uL Hemoglobin 13.5 12.0-16.0 g/dL Hematocrit 39.1 36.0-48.0 % Mean Corpuscular Volume 85.2 81.0-99.0 fL Mean Corpuscular Hemoglobin 29.4 26.7-34.0 pg Mean Corpuscular HGB Conc 34.5 29.9-35.2 g/dL Red Cell Distribution Width 12.6 11.0-15.0 % Platelet Count 288 150-450 10 3/uL Mean Platelet Volume 11.2 9.5-13.5 fL Neutrophils Percent Auto 67.7 43.0-75.0 % Lymphocytes Percent Auto 26.0 20.5-60.0 % Monocytes Percent Auto 5.0 1.7-12.0 % Eosinophils Percent Auto 0.5 0.9-7.0 % Basophils Percent Auto 0.6 0.2-2.0 % Immature Granulocytes Pct Auto 0.2 0.0-0.5 % Neutrophils Absolute Auto 6.9 1.4-6.5 10 3/uL Lymphocytes Absolute Auto 2.6 1.2-3.8 10 3/uL Monocytes Absolute Auto 0.5 0.3-0.8 10 3/uL Eosinophils Absolute Auto 0.1 0.0-0.7 10 3/uL Basophils Absolute Auto 0.1 0.0-0.1 10 3/uL Immature Granulocytes Abs Auto 0.02 0.00-0.03 10 3/uL Performing Lab: see note ML - [facility] LB Urine Culture, Routine Reviewed date:03/13/2025 09:39:15 AM Interpretation: Performing Lab: Notes/Report: [facility] , Urine Culture, Routine See Below For Report Urine Culture, Routine Urine Culture, Routine No growth Urine Culture, Routine Urine Culture, Routine [facility]formed at: [facility] Urine Culture, Routine Urine Culture, Routine [address] [place] [phone] Urine Culture, Routine Urine Culture, Routine Metal Trimmer: Jonathan Ibarra PhD, Phone: [phone] Urine Culture, Routine Performing Lab: see note LC - [facility] LB SEE REPORT - First Officer Id information not found for OBX-specific digital media producer legend Chlamydia/GC Amplification Reviewed date:04/17/2025 09:01:41 PM Interpretation: Performing Lab: Notes/Report: vaginal [facility] , Chlamydia trachomatis, [place] Negative Negative Neisseria gonorrhoeae, [place] Negative Negative Performed at: = - [address] [id number] Metal Trimmer: Antonieta Clifton MD, Phone: [phone] Performing Lab: see note - [facility] LB UA Micro, reflex to culture Reviewed date:04/15/2025 12:47:02 PM Interpretation: Performing Lab: Notes/Report: [facility] , Color Urine YELLOW YELLOW Clarity Urine CLEAR CLEAR Specific [place] Urine >=1.030 1.005-1.025 pH Urine 6.0 5.0-9.0 Protein Urine NEGATIVE NEG/TRACE mg/dL Glucose Urine UA NEGATIVE NEGATIVE mg/dL Bilirubin Urine NEGATIVE NEGATIVE Ketones Urine NEGATIVE NEGATIVE mg/dL Blood Urine NEGATIVE NEGATIVE Nitrite Urine NEGATIVE NEGATIVE Urobilinogen Urine 0.2 0.2-1.0 EU/dL Leukocyte Esterase Urine NEGATIVE NEGATIVE WBC Urine 2-5 NONE SEEN #/HPF RBC Urine 0-2 0-2 #/HPF Bacteria Urine SMALL NONE SEEN #/HPF Mucus Urine LARGE NONE SEEN Squamous Epithelial Cell Urine FEW NONE/RARE #/LPF Crystals Seen? None Seen None Seen #/HPF Cast Seen? NONE SEEN NONE SEEN #/LPF Urine Culture Indicated YES-[place] Performing Lab: see note ML - [facility] LB PROF CHEM 8 (BAS METB) Reviewed date:04/15/2025 12:47:02 PM Interpretation: Performing Lab: Notes/Report: [facility] , Sodium 134 136-145 mmol/L Potassium 3.2 3.5-5.1 mmol/L Chloride 101 98-107 mmol/L Carbon Dioxide 21.3 21.0-32.0 mmol/L Anion Gap 14.9 Glucose 96 74-106 mg/dL Blood Urea Nitrogen 7.0 7.0-18.0 mg/dL Creatinine 0.66 0.55-1.02 mg/dL Estimated GFR ( [place] >60 >=60 mL/min/1.73m 2 Estimated GFR (Non- Deborah >60 >=60 mL/min/1.73m 2 BUN Creatinine Ratio 10.6 Calcium 9.0 8.5-10.1 mg/dL Performing Lab: see note ML - [facility] LB PREG QUANT HCG Reviewed date:04/15/2025 12:47:02 PM Interpretation: Performing Lab: Notes/Report: [facility] , HCG Quantitative 06106 5-50 0.2-1 WEEK 50-500 1-2 WEEKS 100-5,000 2-3 WEEKS 500-10,000 3-4 WEEKS 1,000-50,000 4-5 WEEKS 10,000-100,000 5-6 WEEKS 15,000-200,000 6-8 WEEKS 10,000-100,000 2-3 MONTHS Performing Lab: see note ML - [facility] LB CBC AUTO DIFF Reviewed date:04/15/2025 12:47:02 PM Interpretation: Performing Lab: Notes/Report: [facility] , White Blood Count 11.5 4.0-11.0 10 3/uL Red Blood Count 4.29 4.20-5.40 10 6/uL Hemoglobin 12.8 12.0-16.0 g/dL Hematocrit 36.5 36.0-48.0 % Mean Corpuscular Volume 85.1 81.0-99.0 fL Mean Corpuscular Hemoglobin 29.8 26.7-34.0 pg Mean Corpuscular HGB Conc 35.1 29.9-35.2 g/dL Red Cell Distribution Width 12.7 11.0-15.0 % Platelet Count 256 150-450 10 3/uL Mean Platelet Volume 11.2 9.5-13.5 fL Neutrophils Percent Auto 58.0 43.0-75.0 % Lymphocytes Percent Auto 34.8 20.5-60.0 % Monocytes Percent Auto 5.9 1.7-12.0 % Eosinophils Percent Auto 0.6 0.9-7.0 % Basophils Percent Auto 0.4 0.2-2.0 % Immature Granulocytes Pct Auto 0.3 0.0-0.5 % Neutrophils Absolute Auto 6.7 1.4-6.5 10 3/uL Lymphocytes Absolute Auto 4.0 1.2-3.8 10 3/uL Monocytes Absolute Auto 0.7 0.3-0.8 10 3/uL Eosinophils Absolute Auto 0.1 0.0-0.7 10 3/uL Basophils Absolute Auto 0.1 0.0-0.1 10 3/uL Immature Granulocytes Abs Auto 0.03 0.00-0.03 10 3/uL Performing Lab: see note - [facility] LB [place] Box Reviewed date:03/09/2025 05:19:20 PM Interpretation: Performing Lab: Notes/Report: [facility] , BOX Test Sent Out UNITY BOX Test Reference Lab [facility] Test Date Sent 03/09/2025 Performing Lab: see note - [facility] HBsAg Screen Reviewed date:03/12/2025 11:06:37 AM Interpretation: Performing Lab: Notes/Report: [facility] HBsAg Screen Negative Negative Performed at: [address] [id number] Metal Trimmer: Samson Ibarra PhD, Phone: [phone] Performing Lab: see note [facility] HCV Antibody RFX to Quant PC R Reviewed date:03/12/2025 11:06:37 AM Interpretation: Performing Lab: Notes/Report: [facility] HCV Ab Non Reactive Non Reactive Interpretation: Comment . Not infected with HCV unless early or acute infection is suspected (which may be delayed in an immunocompromised individual), or other evidence exists to indicate HCV infection. Performed at: [address] [id number] Metal Trimmer: Samson Ibarra PhD, Phone: [phone] Performing Lab: see note [facility] Rapid Plasma Reagin, Quant Reviewed date:03/12/2025 11:06:37 AM Interpretation: Performing Lab: Notes/Report: [facility] , Rapid Plasma Reagin, Quant Non Reactive NonRea<1:1 titer Please Note: This test does not meet current guidelines for screening and diagnosis of syphilis. This test is intended for following treatment response in patients being treated for syphilis infection. To screen for syphilis infection, a reflex cascade that includes both RPR and a treponema-specific assay should be utilized, such as Treponema pallidum (Syphilis) Screening [place] (870716) or Rapid Plasma Reagin (RPR) Test With Reflex to Quantitative RPR and Confirmatory Treponema pallidum Antibodies (725465). Performed at: [address] [id number] Metal Trimmer: Samson Ibarra PhD, Phone: [phone] Performing Lab: see note [facility] HIV Ab/p24 Ag with Reflex Reviewed date:03/12/2025 11:06:37 AM Interpretation: Performing Lab: Notes/Report: [facility] , HIV Ab/p24 Ag Screen Non Reactive Non Reactive HIV-1/HIV-2 antibodies and HIV-1 p24 antigen were NOT detected. There is no laboratory evidence of HIV infection. HIV Negative Performed at: [address] [id number] Metal Trimmer: Samson Ibarra PhD, Phone: [phone] Performing Lab: see note [facility] Type and Screen Reviewed date:03/10/2025 08:32:58 AM Interpretation: Performing Lab: Notes/Report: [facility] , Blood Type O Positive Antibody Screen NEGATIVE RUBELLA AB IGG Reviewed date:03/12/2025 11:06:37 AM Interpretation: Performing Lab: Notes/Report: [facility] , Rubella Antibodies, IgG 4.47 Immune > 0.99 index Non-immune <0.90 Equivocal 0.90 - 0.99 Immune >0.99 Performed at: [address] [id number] Metal Trimmer: Samson Ibarra PhD, Phone: [phone] Performing Lab: see note [facility] GLYCOHEMOGLOBIN A1C Reviewed date:03/10/2025 08:32:58 AM Interpretation: Performing Lab: Notes/Report: [facility] , Glycohemoglobin A1C 4.8 4.5-6.2 % ADA RECOMMENDED LIMIT 4.0 - 6.0 ADA THERAPEUTIC TARGET < 7.0 ACTION SUGGESTED > 7.0 Estimated Average Glucose 91 Performing Lab: see note ML - [facility] DRUG SCREEN RAPID (URINE) Reviewed date:03/10/2025 08:32:58 AM Interpretation: Performing Lab: Notes/Report: [facility] , Cannabinoid Screen Urine NEGATIVE NEGATIVE [...] Performing Lab: see note ML - [facility] LB PREG QUANT HCG Reviewed date:02/02/2025 05:11:57 PM Interpretation: Performing Lab: Notes/Report: [facility] , HCG Quantitative 176 5-50 0.2-1 WEEK 50-500 1-2 WEEKS 100-5,000 2-3 WEEKS 500-10,000 3-4 WEEKS 1,000-50,000 4-5 WEEKS 10,000-100,000 5-6 WEEKS 15,000-200,000 6-8 WEEKS 10,000-100,000 2-3 MONTHS Performing Lab: see note ML - [facility] LB TSH W/ REFLEX FT4 Reviewed date:12/27/2024 09:21:45 PM Interpretation: Performing Lab: Notes/Report: [facility] , TSH W/ REFLEX FT4 2.003 0.358-3.740 uIU/mL Performing Lab: see note ML - [facility] LB TSH Reviewed date:12/27/2024 09:21:45 PM Interpretation: Performing Lab: Notes/Report: [facility] , Thyroid Stimulating Hormone 2.003 0.358-3.740 uIU/mL Performing Lab: see note ML - [facility] LB STREPT SCREEN Reviewed date:12/27/2024 09:21:45 PM Interpretation: Performing Lab: Notes/Report: [facility] , Strep A Antigen Screen Negative Performing Lab: see note ML - [facility] LB PROF 14(COMP METB) Reviewed date:12/27/2024 09:21:45 PM Interpretation: Performing Lab: Notes/Report: [facility] , Sodium 142 136-145 mmol/L Potassium 4.0 [...] 1.1 Performing Lab: see note ML - [facility] LB ECG 12 lead Reviewed date:10/31/2024 08:27:43 PM Interpretation: Performing Lab: Notes/Report: Source Facility: [facility] [place] [address] [place] [address] Electrocardiograph Report Signed Patient: LATHA STEEL MR#: [id number] : 2000 Acct:[id number] Age/Sex: 24 / F ADM Date: 10/30/24 Loc: ER Attending Dr: Ordering Physician: Memo Lynch Date of Service: 10/30/24 Procedure(s): ECG 12 lead Accession Number(s): [id number] cc: [facility] Test Date: 2024-10-30 Pat Name: LATHA STEEL Department: Room: - Gender: Female Joy Operator Helper: : 2000 Requested By: 0953 Order Number: [id number] Reading MD: ANNA LI M.D. Measurements Intervals [place] Rate: 77 P: 33 MN: 164 QRS: 18 QRSD: 104 T: 41 QT: 382 QTc: 413 Interpretive Statements 1100 Sinus rhythm 2440 Incomplete right bundle branch block 9130 borderline ECG Compared to ECG 10/20/2023 12:22:15 No significant changes Electronically Signed On 10-31-2024 7:36:14 EDT by ANNA LI M.D. Dictated By: ANNA LI Signed By: 10/31/24 0736 DD/ 1507 TD/TT: Wet Cleaner Machine: ARMANDO [place], reflex to culture Reviewed date:10/30/2024 06:15:52 PM Interpretation: Performing Lab: Notes/Report: [facility] , Color Urine LT. YELLOW YELLOW Clarity Urine CLEAR CLEAR Specific [place] Urine 1.020 1.005-1.025 pH Urine 6.0 5.0-9.0 [...] NO Performing Lab: see note ML - [facility] LB HCG Qualitative* Reviewed date:10/30/2024 04:13:26 PM Interpretation: Performing Lab: Notes/Report: [facility] , HCG Qualitative NEGATIVE NEGATIVE Performing Lab: see note ML - [facility] LB PROF 14(COMP METB) Reviewed date:10/30/2024 04:13:26 PM Interpretation: Performing Lab: Notes/Report: [facility] , Sodium 139 136-145 mmol/L Potassium [...] 1.4 Performing Lab: see note ML - [facility] LB LIPASE Reviewed date:10/30/2024 04:13:26 PM Interpretation: Performing Lab: Notes/Report: [facility] , Lipase 29.0 16.0-77.0 U/L Performing Lab: see note ML - [facility] LB CBC AUTO DIFF Reviewed date:10/30/2024 03:40:05 PM Interpretation: Performing Lab: Notes/Report: [facility] , White Blood Count 9.5 4.0-11.0 [...] Performing Lab: see note ML - [facility] SARS-CoV-2 Ag* Reviewed date:08/01/2024 07:51:30 AM Interpretation: Performing Lab: Notes/Report: [facility] , SARS-CoV-2 Ag NEGATIVE NEGATIVE This test [...] Performing Lab: see note ML - [facility] LB Prothrombin Time INR Reviewed date:08/01/2024 07:51:30 AM Interpretation: Performing Lab: Notes/Report: [facility] , Prothrombin Time 10.6 9.0-11.6 sec INR 1.00 DESIRED INR: 2.0-3.0 CONDITIONS NOT LISTED BELOW 2.5-3.5 FOR PROSTHETIC HEART VALVE REPLACEMENT 2.5-3.5 RECURRENT THROMBOSIS Performing Lab: see note ML - [facility] LB UA RANDOM W or MICROSCOPIC Reviewed date:08/01/2024 07:51:30 AM Interpretation: Performing Lab: Notes/Report: [facility] , Color Urine LT. YELLOW YELLOW Clarity Urine CLEAR CLEAR Specific [place] Urine 1.025 1.005-1.025 pH Urine 6.0 5.0-9.0 [...] Performing Lab: see note ML - [facility] PTT Reviewed date:08/01/2024 07:51:30 AM Interpretation: Performing Lab: Notes/Report: [facility] , Partial Thromboplastin Time 30.1 22.3-36.2 sec Performing Lab: see note ML - [facility] LB PROF 14(COMP METB) Reviewed date:08/01/2024 07:51:30 AM Interpretation: Performing Lab: Notes/Report: [facility] , Sodium 141 136-145 mmol/L Potassium [...] 0.9 Performing Lab: see note ML - [facility] LB INFLUENZA A AND B AG Reviewed date:08/01/2024 07:51:30 AM Interpretation: Performing Lab: Notes/Report: [facility] , Influenza Virus A Antigen Negative Negative [...] Performing Lab: see note ML - [facility] LB CBC AUTO DIFF Reviewed date:08/01/2024 07:51:30 AM Interpretation: Performing Lab: Notes/Report: [facility] , White Blood Count 9.4 4.0-11.0 [...] Lab: see note - [facility] LB Box Test Reviewed date:07/14/2024 05:56:16 PM Interpretation: Performing Lab: Notes/Report: RADHA NOVAK- TO [facility] , BOX Test Sent Out [facility] BOX Test Reference Lab [facility] B[facility] Test Date Sent 07/13/24 BOX Test Result SEE SCANNED REPORT Performing Lab: see note - [facility] LB Manual Differential Reviewed date:07/14/2024 05:56:16 PM Interpretation: Performing Lab: Notes/Report: [facility] , Segmented Neutrophils % Manual 82.0 [...] 10 3/uL Basophils Abs Manual 0.24 0.00-0.10 10 3/uL Performing Lab: see note - [facility] LB CBC AUTO DIFF Reviewed date:07/14/2024 05:56:16 PM Interpretation: Performing Lab: Notes/Report: [facility] , White Blood Count 24.5 4.0-11.0 [...] fL Performing Lab: see note ML - [facility] LB Type and Screen Reviewed date:07/12/2024 10:03:03 AM Interpretation: Performing Lab: Notes/Report: [facility] , Blood Type O Positive Antibody Screen NEGATIVE CBC no Diff (Hemogram) Reviewed date:07/11/2024 09:27:08 PM Interpretation: Performing Lab: Notes/Report: [facility] , White Blood Count 13.1 4.0-11.0 [...] Performing Lab: see note ML - [facility] DRUG SCREEN RAPID (URINE) Reviewed date:07/11/2024 09:27:27 PM Interpretation: Performing Lab: Notes/Report: [facility] , Cannabinoid Screen Urine NEGATIVE NEGATIVE [...] Performing Lab: see note ML - [facility] Strep Gp B [place] Reviewed date:06/26/2024 06:09:25 PM Interpretation: Performing Lab: Notes/Report: [facility] , Strep Gp B [place] See Below For Report Strep Gp B [place] Strep Gp B [place] Negative Strep Gp B [place] Strep Gp B [place] Centers for Disease Control and Prevention (CDC) and Strep Gp B [place] Strep Gp B [place] [employer] Strep Gp [...] Strep Gp B [place] swabbing both the lower vagina and rectum Strep Gp B [place] Strep Gp B [place] substantially increases the yield of detection Strep Gp B [place] Strep Gp B [place] compared with sampli ng the vagina alone. Strep Gp B [place] Strep Gp B [place] Penicillin G, ampicillin, or cefazolin are indicated Strep Gp B [...] [place] Strep Gp B [place] resistance to clindamycin is noted. Strep Gp B [place] Strep Gp B [place] [facility] Strep Gp B [place] Strep Gp B [place] [address] [place], [place] [id number] Strep Gp B [place] Strep Gp B [place] Metal Trimmer: Kane Ibarra PhD, Phone: [phone] Strep Gp B [place] Performing Lab: see note LC - [facility] LB SEE REPORT - First Officer Id information not found for OBX-specific digital media producer legend US OB growth Reviewed date:05/10/2024 04:10:50 PM Interpretation: Performing Lab: Notes/Report: Source Facility: [place] [address] Ultrasound Report Signed Patient: LATHA STEEL MR#: [id number] : 2000 Acct:[id number] Age/Sex: 24 / F ADM Date: 05/10/24 Loc: [facility] Attending Dr: Agata Meza Ordering Physician: Agata Meza Date of Service: 05/10/24 Procedure(s): US OB growth Accession Number(s): [id number] cc: Agata Meza; Jesus Tsang M.D. [place] [address] Patient Name: LATHA STEEL MRN: [id number] date: 2000 Sex: F Assigned Patient Location: [facility] Current Patient Location: [facility] Accession/Order Number: [id number] Exam Date: 05/10/2024 13:59 Report Date: 05/10/2024 [...] M.D. Signed By: 05/10/241441 DD/ 39 TD/TT: Wet Cleaner Machine: CT cervical spine wo con Reviewed date:09/03/2024 02:00:54 PM Interpretation: Performing Lab: Notes/Report: Source Facility: [place] [address] CT Scan Report Signed Patient: LATHA STEEL MR#: [id number] : 2000 Acct:[id number] Age/Sex: 24 / F ADM Date: 09/02/24 Loc: CT Attending Dr: Jesus Tsang M.D. Ordering Physician: Jesus Tsang M.D. Date of Service: 09/02/24 Procedure(s): CT cervical spine wo con Accession Number(s): [id number] cc: Jesus Tsang M.D. [place] [address] Patient Name: LATHA STEEL MRN: [facility]:[id number] date: 2000 Sex: F Assigned Patient Location: CT Current Patient Location: CT Accession/Order Number: [id number] Exam Date: 09/02/2024 08:43 Report Date: 09/02/2024 [...] M.D. Signed By: 09/02/241818 DD/ 15 TD/TT: Wet Cleaner Machine: Urine Culture - [place] Reviewed date:04/17/2025 06:45:50 PM Interpretation: Performing Lab: Notes/Report: [facility] Urine Culture - [place] See Below For Report Urine Culture - [place] No Growth 2 Days Urine Culture - [place] Urine Culture - [place] No Growth 2 Days Urine Culture - [place] Testing performed [facility] Urine Culture - [place] No Growth 2 Days Urine Culture - [place] [address] [place] [address] Urine Culture - [place] No Growth 2 Days Performing Lab: see note ML - [facility] Reason For Referral Diagnosis 1 Hives (L50.9) Referral Organization [facility] Referring Provider First Name Kentrell Referring Provider Last Name Brendensushant Referring Provider Speciality [facility] kristy Referred Provider Ruy Pimentel Referred Provider Specialty Allergy/Immu nology Referral Priority Routine Medications Medication SIG (Take, Route, Frequency, Duration) Notes Start Date End Date Status Meloxicam 15 MG 1 tablet Orally Once a day; Duration: 30 days 08/19/2024 Not-Takin g CeleXA 10 MG 1 tablet Orally Once a day; Duration: 30 days 08/19/2024 Not-Takin g Hyoscyamine Sulfate 0.125 MG 1-2 tabs SL [...] W/U Status Risk Notes Problem Acute gastritis (82884572) Acute gastritis without bleeding (K29.00) Active confirmed Problem Inflammatory dermatosis (883225442) Other specified dermatitis (L30.8) Active confirmed Problem Acne vulgaris (51963548) Acne vulgaris (L70.0) Active confirmed Problem Acne (40412626) Acne, unspecifie d (L70.9) Active confirmed Problem Sebaceous cyst (029238345) Sebaceous cyst (L72.3) Active confirmed Problem Chondromalacia of patella (91057717) Chondromalacia patellae, 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 confirmed Problem Lumbar radiculopathy (926184096) Radiculopathy, lumbar region (M54.16) Active confirmed Problem Epistaxis (350405345) Epistaxis (R04.0) Active confirmed Problem Headache (26457624) Headache (R51) Active confirmed Problem Chest pain (25057631) Chest pain (R07.9) Active confirmed Problem Fatigue (82754691) Fatigue (R53.83) Active confirmed Problem Cervical radiculopathy (58902243) Cervical radiculopathy (M54.12) Active confirmed Problem Hypothyroid (84540042) Hypothyroid (E03.9) Active confirmed Problem Eczema (71132385) Eczema (L30.9) Active confirm ed Problem Syncope (763551838) Syncope (R55) Active confirmed Problem Acute sinusitis (68606321) Acute sinusitis (J01.90) Active confirmed Problem Allergic rhinitis (88538860) Allergic rhinitis (J30.9) Active confirmed Problem Radial styloid tenosynovitis (63731574) De Quervain's tenosynovitis (M65.4) Active confirmed Problem Pain in thoracic spine (878147798) Bilateral thoracic back pain (M54.6) Active confirmed Problem Syncope and collapse (661013082) Syncopal episodes (R55) Active confirmed Problem Nosebleed (094354804) Nosebleed (R04.0) Active confirmed Problem Acute infective polyneuritis (942702912) 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 confirmed Problem Derangement of knee (10590439) Internal derangement of knee, right (M23.91) Active confirmed Problem Bloody diarrhea (35875122) Bloody diarrhea (R19.7) Active confirmed Problem Hyperplasia of tonsils (12812216) Hyperplasia of tonsils (J35.1) Active confirmed Problem Meralgia paresthetica (17702101) Meralgia paresthetica, bilateral lower limbs (G57.13) Active confirmed Problem Cyst of meniscus of right knee (913456771496001) Cyst of meniscus of right knee (M23.006) Active confirmed Problem Postural orthostatic tachycardia syndrome (disorder) (724301550) POTS (postural orthostatic tachycardia syndrome) (I49.8) Active confirmed Problem Disease caused by Severe acute respiratory syndrome coronavirus 2 (disorder) (450594875) COVID-19 virus infection (U07.1) Active confirmed Vital Signs Blood pressure diastolic 72 mm Hg 12/16/2024 Height 64 in 12/16/2024 Blood pressure systolic 116 mm Hg 12/16/2024 Weight 161 lbs 12/16/2024 BMI 27.63 kg/m2 12/16/2024 Encounters Encounter Location Date Provider Diagnosis [facility] [address] [place] [address] 08/19/2024 Kentrell Hoy Headache R51 and Cer vical radiculopathy M54.12 [facility] [address] [place] [address] 12/16/2024 Kentrell Hoy Gastroenteritis K52. 9 and Hives L50.9 [facility] [address] [place] [address] 08/01/2024 Kentrell Hoy [facility] [address] [place] [address] 09/03/2024 Kentrell Tsang [facility] [address] [facility] [place] [address] 04/15/2025 Kentrell Tsang Assessments Encounter Date Diagnosis (ICD Code) Assessment [...] East back into eating by eating bland, jssh-xr-jzzewk foods like crackers, toast, gelatin, bananas, rice and chicken. Try to avoid foods/substances including dairy products, caffeine, alcohol, nicotine and fatty or highly seasoned foods. Medications such as ibuprofen or tylenol can make your stomach more upset, so use sparingly if at all. Also avoid mubq-kym-fyrpewv anti-diarrheal medications because it can make it harder for your body to eliminate the virus. 12/16/2024 Hives (ICD-10 - L50.9) Plan Of Treatment Pending Test Test Name Order Date CMP (COMPLETE METABOLIC PANEL) 4 HEMOGLOBIN A1C (GLYCO) 09/03/2023 IRON, TOTAL 09/03/2023 CBC WITH DIFF 09/03/2023 VITAMIN D, 25 LEVEL (TOTAL) 09/03/2023 MRI Brain w/wo contrast * 10/21/2023 EEG Awake and Asleep 10/21/2023 CT Brain w/o Contrast 08/19/2024 THYROID PROFILE WITH TSH 12/05/2022 THYROID PANEL (T4/TSH/FREE T3) 4 ECHOCARDIO M/2D COMPLETE 09/03/2023 ECHOCARDIO M/2D COMPLETE 12/05/2022 ECHOCARDIO M/2D COMPLETE 02/16/2023 Insurance Providers Payer Name Payer Address Payer Phone Subscriber Number Group Number Insured Name Patient Relationship to Insured Coverage Start Date Coverage End Date LINDA MERCER [address] [place] [address] [id number] Job Keith Child 3 [employer] [place] [address] [address] [place] [address] [id number] Latha Steel Self - patient is the insured 4 Medical (General) History Medical History History ICD Code Acne, unspecified L70.9 Radiculopathy, lumbar region M54.16 Other specified dermatitis L30.8 Chondromalacia patellae, 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
--- OUTSIDE RECORDS SUMMARY | 2025-04-26 06:05 | XMS_ITS | Encounter Summary ---
Author Organization [facility] Address [address] [facility] [place] [address] Care Team Providers Care Wet Process Miller Head Name Role Phone Fady Tsang MD Primary Care Provider [phone] Encounter Details Date Type Department Care Team ([facility] Contact Info) Description 02/10/2024 Abstract MARIAN STEPHENSON [address] [place] [phone] Pan Martínez DO [address] [facility] [address] Joao [place], [facility]11 Social History Tobacco Use Types Packs/Day Years [...] 8:30 AM EDT Routine MARIAN STEPHENSON [address] [place] [phone] Agata Ross PA [address] [facility] [address] [place], [place] [phone] documented as of this encounter Visit Diagnoses Not on filedocumented in this encounter Care Teams Wet Process Miller Head Relationship Specialty Start Date End Date Fady Tsang MD [address] [place] [address] PCP - General Family Medicine 04/21/23 documented as of this encounter
--- OUTSIDE RECORDS SUMMARY | 2025-04-26 06:05 | XMS_ITS | Encounter Summary ---
Author Organization [facility] Address [address] [facility] [place] [address] Care Team Providers Care Mass Spectroscopist Name Role Phone Fady Tsang MD Primary Care Provider [phone] Encounter Details Date Type Department Care Team ([facility] Contact Info) Description 03/04/2024 Abstract MARIAN STEPHENSON [address] [place] [phone] Pan Martínez DO [address] Joao Doshi, [facility]11 Social History Tobacco Use Types Packs/Day [...] 8:30 AM EDT Routine MARIAN STEPHENSON [address] [place] [phone] Agata Ross PA [address] [place], [place] [phone] documented as of this encounter Visit Diagnoses Not on filedocumented in this encounter Care Teams Mass Spectroscopist Relationship Specialty Start Date End Date Fady Tsang MD [address] [place] [address] PCP - General Family Medicine 04/21/23 documented as of this encounter
--- OUTSIDE RECORDS SUMMARY | 2025-04-26 06:06 | XMS_ITS | Clinical Summary ---
Author Organization [facility] Address [address] [place] [address] Care Team Providers Care Draw Frame Tender Name Role Phone Fady Tsang MD Primary Care Provider [phone] Allergies No known active allergies Medications MV-Min-Fe Fum-FA-DHA ( 1 PO) Take 1 tablet by mouth Daily Active metroNIDAZOLE (Flagyl) 500 MG tabletIndicati ons:BV (bacterial vaginosis) Take 1 tablet (500 mg) by mouth in the morning and 1 tablet (500 mg) before bedtime. Do all this for 7 days. Do not drink alcohol while taking this medication. 14 tablet 04/10/20 25 Discontinued Active Problems Problem Noted Date Diagnosed Date Hx of Guillain-[place] syndrome 11/23/2023 History of shingles 11/23/2023 Hypertrophy of tonsils with hypertrophy of adeno ids 11/19/2023 Estimated Date of Delivery Comme nts Yes 10/08/2025 Based on Ultraso und, FHR-180 Resolved Problems Problem Noted Date Diagnosed Date Resolved Date History of 2019 novel jones virus disease (COVID-19) 11/23/2023 02/27/2025 Acute frontal sinusitis 11/19/202302/17 Allergic rhinitis 11/19/2023 02/27/2025 Chronic adenotonsillitis 11/19/202305/2025 Pharyngitis 11/19/2023 02/27/2025 UARS (upper airway resistance syndrome) 11/19/2023 02/27/2025 Encounters Date Type Department Care Team Description 04/10/2025 8:50 AM EDT Routine MARIAN Doshi OBGYN [address] [place] [address] Pan Martínez, DO Second trimester ([facility]); 14 weeks gestation of ([facility]) 04/10/2025 Bamboo flowsheet [facility] [address] [place] [phone] Pan Martínez, 04/10/2025 Travel 03/28/2025 Telephone [facility] RODRIGUE[facility]N [address] [place] [address] Mirtha Lindquist LPN 03/17/2025 Abstract [facility]OD[facility] [address] [place] [address] Pan Martínez, 03/09/2025 1:30 PM EDT Initial [facility] [place] [phone] [place]: 9w4d 03/09/2025 1:00 PM EDT Ancillary Procedure [facility] RODRIGUEZGYN [address] [place] [phone] Missed menses; Positive urine test ([facility]) 03/09/2025 Clinisync Result Encounter NOMS External Department Unsolicited Pan Martínez, 03/03/2025 Travel 02/06/2025 Telephone [facility] STEPHENSON [address] [place] [address] Cynthia Maya MA 02/02/2025 Clinisync Result Encounter NOMS External Department Unsolicited Pan Martínez, DO 02/01/2025 Telephone [facility] RODRIGUEZGYAnette [address] [place] [phone] Mirtha Lindquist LPN from Last 3 Months Family History Medical [...] Sign Reading Time Taken Comments Blood Pressure 110/80 04/10/2025 9:05 AM EDT Pulse - - Temperature - - Respiratory Rate - - Oxygen Saturation - - Inhaled Oxygen Concentration - - Weight 76 kg (167 lb 8 oz) 04/10/2025 9:05 AM ED T Height 162.6 cm (5' 4 ) 04/21/2023 3:18 PM EDT Body Mass Index 28.75 04/21/2023 3:18 PM EDT Plan of Treatment Upcoming Encounters Date Type Department Care Team (Late st Contact Info) Description 05/09/2025 8:30 AM EDT Routine [facility] [address] [place] [phone] Agata Ross PA [address] [facility] [address] [facility] [address] [place], [place] [phone] Procedures Procedure Name Priority Date/Time Associated Diagnosis Comments POCT URINALYSIS DIPSTICK Routine 04/10/2025 9:09 AM EDT Second trimester ([facility]) HBSAG SCREEN Routine 03/09/2025 4:23 PM EDT RAPID PLASMA REAGIN, QUANT Routine 03/09/2025 4:23 PM EDT HCV ANTIBODY RFX TO QUANT PCR Routine 03/09/2025 4:23 PM EDT ALL RUBELLA IGG AB Routine 03/09/2025 4: 23 PM EDT HIV AB/P24 AG WITH REFLEX Routine 03/09/2025 4:23 PM EDT ALL TYPE AND SCREEN Routine 03/09/2025 4 :23 PM EDT MLR HEMOGLOBIN A1C Routine 03/09/2025 4: 23 PM EDT BOX TEST Routine 03/09/2025 4:23 PM EDT ALL CBC WITH AUTO DIFF Routine 03/09/2025 4:23 PM EDT TBH DRUG SCREEN RAPID (URINE) Routine 03/09/2025 4:00 PM EDT POCT URINALYSIS DIPSTICK Routine 03/09/2025 1:32 PM EDT Missed menses POCT , URINE Routine 03/09/2025 1:32 PM EDT Missed menses US OB TRANSVAGINAL Routine 03/09/2025 1: 28 PM EDT Missed menses Positive urine test ([facility]) [facility] PREG QUANT HCG Routine 02/02/2025 2: 09 PM EDT from Last 3 Months Results * POCT urinalysis dipstick manually resulted (04/10/2025 9:09 AM EDT) Only the most recent of2 resultswithin the time period is included. Color, UA Yellow Clarity, UA Clear Glucose, UA Negative Negative - 2000(110) ++++ mg/dL Bilirubin, UA Negative Negative - 4(70) +++ mg/dL Ketones, UA Negative Negative - 160(16) ++++ mg/dL Spec Grav, UA 1.015 1 - 1.03 Blood, UA Negative Negative - 50 Gabriele/mcL pH, UA 6.0 5 - 9 Protein, UA Negative Negative - 2000(20) ++++ mg/dL Urobilinogen, UA 0.2 0.2 - 12 mg/dL Leukocytes, UA Negative Negative - 500+++ Alexsandra/mcL Nitrite, UA Negative Negative - Positive Urine 04/10/2025 9:09 AM EDT Pan Mauricio DO POINT OF CARE TEST ENTER/EDIT OR DERABLES Final Result * BOX TEST (03/09/2025 4:23 PM EDT) [facility] BOX TEST SENT OUT [facility] BOX1 [facility] [address]OX2 03/09/2025 [facility] 03/09/2025 4:23 PM EDT 03/09/2025 4:26 PM EDT Narrative [facility] - 03/09/2025 5:16 PM EDT Pan Mauricio DO LAB BLOOD ORDERABLES Final Resul t Performing Organization Address City/[facility]/ZIP Co de Phone Number [facility] * HBSAG SCREEN (03/09/2025 4:23 PM EDT) [facility] HBSAG SCREEN Negative Negative [facility] Comment: Performed at: [facility] [id number] [employer] Business Developer: Samson Ibarra PhD, Phone: [phone] 03/09/2025 4:23 PM EDT 03/09/2025 4:26 PM EDT Narrative [facility] - 03/11/2025 1:09 PM EDT Pan Mauricio DO LAB BLOOD ORDERABLES Final Resul t [facility] * RAPID PLASMA REAGIN, QUANT (03/09/2025 4:23 PM EDT) [facility] RAPID PLASMA REAGIN, QUANT Non Reactive NonRea<1: 1 titer [facility] Comment: Please Note: This test does not meet current guidelines for screening and diagnosis of syphilis. This test is intended for following treatment response in patients being treated for syphilis infection. To screen for syphilis infection, a reflex cascade that includes both RPR and a treponema-specific assay should be utilized, such as Treponema pallidum (Syphilis) Screening [place] (512082) or Rapid Plasma Reagin (RPR) Test With Reflex to Quantitative RPR and Confirmatory Treponema pallidum Antibodies (753238). Performed at: [address] [id number] [employer] Developer: Samson Ibarra PhD, Phone: [phone] 03/09/2025 4:23 PM EDT 03/09/2025 4:26 PM EDT Narrative [facility] - 03/11/2025 1:09 PM EDT Pan Mauricio LAB BLOOD ORDERABLES Final Resul t Performing Organization Address [facility] Co de Phone Number [facility] * HIV AB/P24 AG WITH REFLEX (03/09/2025 4:23 PM EDT) HIV AB/P24 AG SCREEN Non Reactive Non Reactive [facility] Comment: HIV-1/HIV-2 antibodies and HIV-1 p24 antigen were NOT detected. There is no laboratory evidence of HIV infection. HIV Negative Performed at: [address] [id number] [employer] Developer: Samson Ibarra PhD, Phone: [phone] 03/09/2025 4:23 PM EDT 03/09/2025 4:26 PM EDT Narrative [facility] - 03/11/2025 4:07 AM EDT us Pan Mauricio DO LAB BLOOD ORDERABLES Final Resul t Performing Organization Address City/[facility] Co de Phone Number [facility] * HCV ANTIBODY RFX TO QUANT PCR (03/09/2025 4:23 PM EDT) HCV AB Non Reactive Non Reactive [facility] INTERPRETATION: Comment . TB Comment: Not infected with HCV unless early or acute infection is suspected (which may be delayed in an immunocompromised individual), or other evidence exists to indicate HCV infection. Performed at: [facility] [id number] [employer] Developer: Samson Ibarra PhD, Phone: [phone] 03/09/2025 4:23 PM EDT 03/09/2025 4:26 PM EDT Narrative [facility] - 03/11/2025 8:09 AM EDT Pan Mauricio DO LAB BLOOD ORDERABLES Final Resul t Performing Organization Address [facility] Co de Phone Number [facility] * MLR HEMOGLOBIN A1C (03/09/2025 4:23 PM EDT) GLYCOHEMOGLOBIN A1C 4.8 4.5 - 6.2 % [facility] Comment: ADA RECOMMENDED LIMIT 4.0 - 6.0 ADA THERAPEUTIC TARGET < 7.0 ACTION SUGGESTED > 7.0 ESTIMATED AVERAGE GLUCOSE 91 mg/dL TB 03/09/2025 4:23 PM EDT 03/09/2025 4:26 PM EDT Narrative [facility] - 03/09/2025 6:02 PM EDT us Pan Mauricio DO [facility] Final Result Performing Organization Address City/[facility] Co de Phone Number [facility] * ALL TYPE AND SCREEN (03/09/2025 4:23 PM EDT) BLOOD TYPE O Positive [facility] ANTIBODY SCREEN NEGATIVE TB 03/09/2025 4:23 PM EDT 03/09/2025 4:26 PM EDT Narrative [facility] - 03/09/2025 6:12 PM EDT [facility] , Pan Mauricio DO CL[facility] Final Result Performing Organization Address [facility] Co de Phone Number [facility] * ALL RUBELLA IGG AB (03/09/2025 4:23 PM EDT) [facility] RUBELLA ANTIBODIES, IGG 4.47 Immune >0.99 index [facility] Comment: Non-immune <0.90 Equivocal 0.90 - 0.99 Immune >0.99 Performed at: [facility] [id number] [employer] Developer: Samson Ibarra PhD, Phone: [phone] 03/09/2025 4:23 PM EDT 03/09/2025 4:26 PM EDT Narrative [facility] - 03/11/2025 8:09 AM EDT Pan Mauricio DO [facility] Final Result [facility] * (ABNORMAL) ALL CBC WITH AUTO DIFF (03/09/2025 4:23 PM EDT) [facility] WBC 10.1 4.0 - 11.0 10 3/uL TBH TB RBC 4.59 4.20 - 5.40 10 6/uL [facility] TB HGB 13.5 12.0 - 16.0 g/dL TB TB HCT 39.1 36.0 - 48.0 % TB[facility] TB MCV 85.2 81.0 - 99.0 fL TB TB MCH 29.4 26.7 - 34.0 pg TBH TB MCHC 34.5 29.9 - 35.2 g/dL TB TB RDW 12.6 11.0 - 15.0 % TBH TBH PLT 288 150 - 450 10 3/uL TB TB MPV 11.2 9.5 - 13.5 fL TBH NEUTROPHILS PERCENT AUTO 67.7 43.0 - 75.0 % TBH LYMPHOCYTES PERCENT AUTO 26.0 20.5 - 60.0 % [facility] MONOCYTES PERCENT AUTO 5.0 1.7 - 12.0 % [facility]H TBH EO % 0.5(L) 0.9 - 7.0 % [facility] BASOPHILS PERCENT AUTO 0.6 0.2 - 2.0 % [facility] IMMATURE GRANULOCYTES PCT AUTO 0.2 0.0 - 0.5 % TB[facility] NEUTROPHILS ABSOLUTE AUTO 6.9(H) 1.4 - 6.5 10 3/uL TBH LYMPHOCYTES ABSOLUTE AUTO 2.6 1.2 - 3.8 10 3/uL TBH MONOCYTES ABSOLUTE AUTO 0.5 0.3 - 0.8 10 3/uL TBH TBH EO # 0.1 0.0 - 0.7 10 3/uL TBH BASOPHILS ABSOLUTE AUTO 0.1 0.0 - 0.1 10 3/uL [facility] IMMATURE GRANULOCYTES ABS AUTO 0.02 0.00 - 0.03 10 3/uL [facility] 03/09/2025 4:23 PM EDT 03/09/2025 4:26 PM EDT Narrative [facility] - 03/09/2025 4:38 PM EDT us Pan Marsho DO CL[facility]IS[facility] Final Result [facility] * TB DRUG SCREEN RAPID (URINE) (03/09/2025 4:00 PM EDT) Pathologist [facility] CANNABINOID SCREEN URINE NEGATIVE NEGATIVE TBH PHENCYCLIDINE SCREEN URINE NEGATIVE NEGATIVE TBH COCAINE SCREEN URINE NEGATIVE NEGATIVE TBH METHAMPHETAMINES SCREEN URINE NEGATIVE NEGATIVE TBH OPIATE SCREEN URINE NEGATIVE NEGATIVE TBH AMPHETAMINE SCREEN URINE NEGATIVE NEGATIVE TBH BENZODIAZEPINES SCREEN URINE NEGATIVE NEGATIVE TBH TRICYCLIC ANTIDEPRESSANT URINE NEGATIVE NEGATIVE TBH METHADONE SCREEN URINE NEGATIVE NEGATIVE TBH BARBITURATES SCREEN URINE NEGATIVE NEGATIVE TBH OXYCODONE SCREEN URINE NEGATIVE NEGATIVE TBH BUPRENORPHINE SCREEN URINE NEGATIVE NEGATIVE TBH Comment: DRUG CLASS TEST SYSTEM CUT-OFF CONCENTRATIONS ARE FOLLOWS: AMP (Amphetamine): 500 ng/mL BAR (Barbiturates): 200 ng/mL BZO (Benzodiazepines): 150 ng/mL BUP (Buprenorphine): 10 ng/mL NAA (Cocaine): 150 ng/mL mAMP (Methamphetamine): 500 ng/mL MTD (Methadone): 200 ng/mL OPI (Opiates): 100 ng/mL OXY (Oxycodone): 100 ng/mL PCP (Phencyclidine): 25 ng/mL THC (Cannabinoids): 50 ng/mL TCA (Trycyclic Antidepressants): 300 ng/mL 03/09/2025 4:00 PM EDT 03/09/2025 4:28 PM EDT Narrative [facility] - 03/09/2025 6:00 PM EDT us Pan Mauriico DO CLINISYNC Final Result [facility] * (ABNORMAL) POCT , urine manually resulted (03/09/2025 1:32 PM EDT) Preg Test, Ur Positive Negative Urine 03/09/2025 1:32 PM EDT us Pan Mauricio DO POINT OF CARE TEST ENTER/EDIT OR DERABLES Final Result * US OB transvaginal (03/09/2025 1:28 PM EDT) Anatomical Region Laterality Modality Body Ultrasound 03/12/2025 8:22 AM EDT Narrative 03/12/2025 8:22 AM EDT EXAM: US OB TRANSVAGINAL HISTORY: Dating, history [...] ovaries. Interpreted by: Electronically signed by CLAUDINE MURILLO II, MD, PHD at 12-Mar-2025 08:20:08 AM [facility] Procedure Note Claudine Murillo MD - 03/12/2025 EXAM: US OB TRANSVAGINAL HISTORY: Dating, history of stillbirth. LMP unknown. COMPARISON: None available. TECHNIQUE: Two-dimensional transvaginal grayscale ultrasound imaging ofthe pelvis was performed. Color Doppler evaluation of the ovaries was alsoperformed. FINDINGS: The uterus demonstrates a normal homogeneous echotexture. The cervixmeasures 4.0 cm in length and the cervical os is closed. The right ovary measures 3.9 x 2.6 x 2.7 cm and demonstrates a normalechotexture. There is normal color Doppler flow. There is a presumedcorpus luteal cyst. The left ovary measures 2.0 x 1.6 x 1.7 cm and demonstrates a normalechotexture. There is normal color Doppler flow. Trace fluid is present within the cul-de-sac. There is a single, live intrauterine gestation identified with a fetalheart rate of 180 beats per minute and a crown-rump length measurement of2.7 cm, correlating to a gestational age of 9 weeks 4 days (+/- 6 days).There is no subchorionic hemorrhage visualized. A yolk sac isvisualized. IMPRESSION: 1. Single, live intrauterine gestation with today's ultrasoundmeasurements correlating to a gestational age of 9 weeks 4 days (+/- 6days). DEN by today's ultrasound is 10/08/2025. 2. Normal color Doppler evaluation of the bilateral ovaries. Interpreted by: Electronically signed by CLAUDINE MURILLO II, MD, PHD [id number] 08:20:08 AM [facility] us Pan Mauricio DO IM OB US PROCEDURES Final Resul t * TBH PREG QUANT HCG (02/02/2025 2:09 PM EDT) HCG QUANTITATIVE 176 mIU/mL [facility] Comment: 5-50 0.2-1 WEEK 50-500 1-2 WEEKS 100-5,000 2-3 WEEKS 500-10,000 3-4 WEEKS 1,000-50,000 4-5 WEEKS 10,000-100,000 5-6 WEEKS 15,000-200,000 6-8 WEEKS 10,000-100,000 2-3 MONTHS 02/02/2025 2:09 PM EDT 02/02/2025 2:13 PM EDT Narrative [facility] - 02/02/2025 3:07 PM EDT us Pan Mauricio DO CLINISYNC Final Result [facility] Mon[facility] Insurance [employer] [place] Care Teams Draw Frame Tender Relationship Specialty Start Date End Date Fady Tsang MD [address] [place] [address] PCP - General Family Medicine 04/21/23
--- OUTSIDE RECORDS SUMMARY | 2025-04-26 06:06 | XMS_ITS | Encounter Summary ---
Author Organization [facility] Address [address] [place] [address] Care Team Providers Care Occupational Safety Specialist Name Role Phone Fady Tsang MD Primary Care Provider [phone] Encounter Details Date Type Department Care Team ([facility] Contact Info) Description 06/22/2024 Abstract MARIAN STEPHENSON [address] [phone] Pan Martínez DO [address] Joao Doshi, [facility]11 Social History Tobacco Use Types Packs/Day [...] 8:30 AM EDT Routine MARIAN STEPHENSON [address] [address] [phone] Agata Ross PA [address] [place], [place] [phone] documented as of this encounter Visit Diagnoses Not on filedocumented in this encounter Care Teams Occupational Safety Specialist Relationship Specialty Start Date End Date Fady Tsang MD [address] [place] [address] PCP - General Family Medicine 04/21/23 documented as of this encounter
--- OUTSIDE RECORDS SUMMARY | 2025-04-26 06:06 | XMS_ITS | Encounter Summary ---
Author Organization [facility] Address [address] [facility] [place] [address] Care Team Providers Care Payroll Supervisor Name Role Phone Fady Tsang MD Primary Care Provider [phone] Encounter Details Date Type Department Care Team ([facility] Contact Info) Description 04/20/2023 Abstract MARIAN STEPHENSON [address] [place] [phone] Agata Ross PA [address] [place] [address] [address] [place], [facility]11 Social History Tobacco Use Types Packs/Day [...] Upcoming Encounters Date Type Department Care Team ([facility] Contact Info) Description 05/09/2025 8:30 AM EDT Routine MARIAN STEPHENSON [address] [place] [place] [phone] Agata Ross PA [address] [place], [place] [phone] documented as of this encounter Visit Diagnoses Not on filedocumented in this encounter Care Teams Payroll Supervisor Relationship Specialty Start Date End Date Fady Tsang MD [address] [place] [address] PCP - General Family Medicine 04/21/23 documented as of this encounter
--- OUTSIDE RECORDS SUMMARY | 2025-04-26 06:06 | XMS_ITS | Encounter Summary ---
Author Organization [facility] Address [address] [facility] [place] [address] Care Team Providers Care Chopper Gun Operator Name Role Phone Fady Tsang MD Primary Care Provider [phone] Encounter Details Date Type Department Care Team ([facility] Contact Info) Description 06/15/2024 Abstract MARIAN STEPHENSON [address] [place] [phone] Pan Martínez DO [address] [facility] [facility] [address] Joao Doshi, [facility] Social History Tobacco Use Types Packs/Day Years [...] 8:30 AM EDT Routine MARIAN STEPHENSON [address] [place] [phone] Agata Ross PA [address] [place], [place] [phone] documented as of this encounter Visit Diagnoses Not on filedocumented in this encounter Care Teams Chopper Gun Operator Relationship Specialty Start Date End Date Fady Tsang MD [address] [place] [address] PCP - General Family Medicine 04/21/23 documented as of this encounter
--- OUTSIDE RECORDS SUMMARY | 2025-04-26 06:06 | XMS_ITS | Encounter Summary ---
Author Organization [facility] Address [address] [facility] [place] [address] Care Team Providers Care Turpentiner Name Role Phone Fady Tsang MD Primary Care Provider [phone] Encounter Details Date Type Department Care Team ([facility] Contact Info) Description 07/13/2024 Abstract MARIAN STEPHENSON [address] [facility] [place] [phone] Pan Martínez DO [address] [facility] [address] Joao Doshi, [facility]11 Social History Tobacco Use Types Packs/Day [...] EDT Routine MARIAN STEPHENSON [address] [place] [phone] Agata Rsos PA [address] [facility] [address] [place], [place] [phone] documented as of this encounter Visit Diagnoses Not on filedocumented in this encounter Care Teams Turpentiner Relationship Specialty Start Date End Date Fady Tsang MD [address] [place] [address] PCP - General Family Medicine 04/21/23 documented as of this encounter
--- OUTSIDE RECORDS SUMMARY | 2025-04-26 06:06 | XMS_ITS | Encounter Summary ---
Author Organization [facility] Address [address] [facility] [place] [address] Care Team Providers Care Apparel Manufacture Instructor Name Role Phone Fady Tsang MD Primary Care Provider [phone] Encounter Details Date Type Department Care Team ([facility] Contact Info) Description 03/07/2024 Abstract MARIAN STEPHENSON [address] [facility] [place] [phone] Pan Martínez DO [address] [facility] [address] Joao Doshi, [facility]11 Social History Tobacco Use Types Packs/Day [...] 8:30 AM EDT Routine MARIAN STEPHENSON [address] [facility] [place] [phone] Agata Ross PA [address] [facility] [address] [place], [place] [phone] documented as of this encounter Visit Diagnoses Not on filedocumented in this encounter Care Teams Apparel Manufacture Instructor Relationship Specialty Start Date End Date Fady Tsang MD [address] [place] [address] PCP - General Family Medicine 04/21/23 documented as of this encounter
[2025-04-26 06:08] VITALS: BP 128/83; PULSE 82; TEMP 36.5; O2SAT 97; BMI 28.3
--- NOTE | 2025-04-26 07:06 | US_ITS ---
The [address] [address] Patient Name: JAMES STEEL MRN: [id number] date: 2000 Sex: F Assigned Patient Location: ER Current Patient Location: ER Accession/Order Number: [id number] Exam Date: 04/26/2025 07:07 Report Date: 04/26/2025 08:37 At the request of: KOREY LOVELL DO Procedure: US OB >= 14 weeks Fetus ULTRASOUND OB >14 WEEKS CLINICAL DATA: Vaginal spotting for the past 4 weeks COMPARISON: None There is a single echogenic gestation in transverse presentation with head to maternal right. The amniotic fluid volume is subjectively normal. The placenta is anterior and marginal in position. Between the placenta and cervix is a hypoechoic avascular area with possible amniotic band around it. This measures approximately 4.3 x 3.5 x 2.1 cm in size. It may be a loculated collection of fluid with some low-level debris. Acute hematoma is not suspected. The cervix appears closed with a length of approximately 5.9 cm. The following measurements were obtained: Biparietal diameter 3.2 cm 16 weeks 1 day 32% Head circumference 12.8 cm 16 weeks 4 days 43% Abdominal circumference 10.9 cm 16 weeks 5 days 62% Femur length 2.1 cm 16 weeks 2 days 42% The composite ultrasound age based these measurements is 16 weeks 3 days +/- 1 week 1 day. This correlates with dates based on last menstrual period. US/US OB >= 14 weeks Fetus IMPRESSION: SINGLE LIVE INTRAUTERINE GESTATION WITH ULTRASOUND AGE OF 16 WEEKS 3 DAYS. MARGINAL PREVIA. INDETERMINANT AREA BETWEEN THE END OF THE PLACENTA AND THE CERVICAL OS, DESCRIBED. FOLLOW-UP ON SUBSEQUENT ULTRASOUNDS IS SUGGESTED. Impression dictated by: Chelsey Rucker M.D. 04/26/2025 8:37 AM Dictation Location: [place] [address] Electronically authenticated by: [id number] Y Date: 04/26/2025 08:37
[2025-04-26 07:19] LABS: Hematocrit 35.3 % (36.0-48.0); Hemoglobin 12.5 g/dL (12.0-16.0); Immature Granulocytes Abs Auto 0.02 10^3/uL (0.00-0.03); Immature Granulocytes Pct Auto 0.2 % (0.0-0.5); Lymphocytes Absolute Auto 2.1 10^3/uL (1.2-3.8); Mean Corpuscular HGB Conc 35.4 g/dL (29.9-35.2); Mean Corpuscular Hemoglobin 30.4 pg (26.7-34.0); Mean Corpuscular Volume 85.9 fL (81.0-99.0); Platelet Count 195 10^3/uL (150-450); Red Blood Count 4.11 10^6/uL (4.20-5.40); White Blood Count 9.0 10^3/uL (4.0-11.0)
[2025-04-26 07:40] VITALS: BP 127/84; PULSE 95; O2SAT 100
[2025-04-26 08:13] LABS: Anion Gap 14.2; Blood Urea Nitrogen 7.0 mg/dL (7.0-18.0); Calcium 8.8 mg/dL (8.5-10.1); Carbon Dioxide 25.4 mmol/L (21.0-32.0); Chloride 104 mmol/L (98-107); Estimated GFR (African America >60 (>=60 mL/min/1.73m^2); Estimated GFR (Non-African Ame >60 (>=60 mL/min/1.73m^2); Glucose 74 mg/dL (74-106); Potassium 3.6 mmol/L (3.5-5.1); Sodium 140 mmol/L (136-145)
--- NOTE | 2025-04-26 10:53 | ED.GENADUL1 ---
HPI HPI - General Adult General Chief complaint: Urogenital-Female Stated complaint: 16 WEEKS VAGINAL BLEEDING Time Seen by Provider: 04/26/25 06:50 Source: patient Mode of arrival: walk-in Limitations: no limitations History of Present Illness HPI narrative: Patient is a healthy 25-year-old female presenting to the emergency department for evaluation of vaginal bleeding. Patient states she is 16 weeks by ultrasound. She just saw her BATTERY RECHARGER 2 weeks ago, at which time had a normal OB ultrasound. She states that over the last month she has been having a mild amount of dark red vaginal bleeding. She states today is similar to episodes over the last month. She is not actively bleeding at the moment. She denies any abdominal pain or cramping. No fevers or chills. No chest pain or shortness of breath. No dysuria or urinary frequency. She takes a daily vitamin. She denies history of endometriosis, PCOS, fibroids, or other gynecologic conditions. Related Data Home Medications ?Medication ?Instructions ?Recorded ?Confirmed JGR-azwl-EM-omega 3 fatty no.1 27 1 cap PO DAILY 04/26/25 04/26/25 mg-1 mg-300 mg capsule Allergies Allergy/AdvReac Type Severity Reaction Status Date / Time cephalexin AdvReac Intermediate Vomiting Verified 04/26/25 06:13 Opioid HPI Opioid Management Most Recent Opioid Data: Last Pain Scale 8 04/15/25, 02:16 Ur Phencyclidine Scrn, (NEGATIVE) Negative 03/09/25, 16:00 Review of Systems ROS Status of ROS 10 or more systems reviewed and unremarkable except as noted in history and below PFSH PFSH Social History Smoking status: Never smoker Little interest or pleasure in doing things: not at all Feeling down, depressed, or hopeless: not at all Exam Narrative Exam Narrative: CONSTITUTIONAL: Well-appearing, answering questions and following commands appropriately SKIN: Was warm and dry. EYES: No conjunctival pallor. EARS, NOSE, THROAT: Moist oral mucosa. RESPIRATORY: Nonlabored respirations CARDIOVASCULAR: Normal rate and regular rhythm. There is no S3, S4, murmur, rub. GASTROINTESTINAL: Abdomen is soft, nontender, nondistended. No rebound tenderness or guarding. MUSCULOSKELETAL: No peripheral edema. NEUROLOGIC: Patient is awake and alert. Facies were symmetrical. PELVIC: Patient declined. Constitutional Vital Signs, click to edit/add: Last Vital Signs Temp 97.7 F 04/26/25 06:08 Pulse 95 H 04/26/25 07:40 Resp 16 04/26/25 07:40 BP 127/84 04/26/25 07:40 Pulse Ox 100 04/26/25 07:40 O2 Del Method Room Air 04/26/25 07:40 Course Vital Signs Vital signs: Vital Signs Temperature 97.7 F 04/26/25 06:08 Pulse Rate 82 04/26/25 06:08 Respiratory Rate 16 04/26/25 06:08 Blood Pressure 128/83 04/26/25 06:08 Pulse Oximetry 97 04/26/25 06:08 Oxygen Delivery Method Room Air 04/26/25 06:08 Temperature 97.7 F 04/26/25 06:08 Pulse Rate 95 H 04/26/25 07:40 Respiratory Rate 16 04/26/25 07:40 Blood Pressure 127/84 04/26/25 07:40 Pulse Oximetry 100 04/26/25 07:40 Oxygen Delivery Method Room Air 04/26/25 07:40 Medical Decision Making MDM Narrative Medical decision making narrative: Patient is a healthy 25-year-old female, currently 16 weeks gestation by ultrasound, presenting to the emergency department with a 1 month history of mild dark red vaginal bleeding. She states she an OB ultrasound with her BATTERY RECHARGER 2 weeks ago which was normal. Her vital signs arrival today are within normal limits. She is afebrile and hemodynamically stable. She is currently asymptomatic and not actively bleeding. She declined pelvic exam. Differential diagnosis includes threatened , anemia, subchorionic hemorrhage, or other BATTERY RECHARGER related complications. Transabdominal ultrasound was ordered. Laboratory studies were obtained. Laboratory studies were unremarkable. No significant electrolyte or metabolic derangement. No anemia. No evidence of acute kidney injury. O+ blood, does not require RhoGAM. Beta quantitative hCG is 6,000 less than from a few weeks ago on 04/15, which is likely a normal plateau in second trimester . OB ultrasound independent reviewed and interpreted by myself and radiology demonstrated single live intrauterine gestation with ultrasound age of 16 weeks and 3 days with a normal heart rate. Marginal previa. Indeterminate area between the end of the placenta at the cervical os, unlikely to be acute hematoma. On reevaluation, patient states she feels well and still is not having any active bleeding. I do believe the patient is stable for discharge. They were instructed to follow up with her BATTERY RECHARGER for further care. Return precautions were given including any new or worsening symptoms, including worsening vaginal bleeding, symptoms of anemia, or abdominal pain. Patient understands and agrees to the plan. FINAL IMPRESSION: #Acute vaginal bleeding in second trimester DISPOSITION: Discharged home CONDITION: Good Medical Records Medical records reviewed: Yes I reviewed the patient's medical records Lab Data Lab results reviewed: Yes I reviewed the patient's lab results Labs: Lab Results 04/26/25 Range/Units 07:09 WBC 9.0 (4.0-11.0) 10^3/uL RBC 4.11 L (4.20-5.40) 10^6/uL Hgb 12.5 (12.0-16.0) g/dL Hct 35.3 L (36.0-48.0) % MCV 85.9 (81.0-99.0) fL MCH 30.4 (26.7-34.0) pg MCHC 35.4 H (29.9-35.2) g/dL RDW 12.6 (11.0-15.0) % Plt Count 195 (150-450) 10^3/uL MPV 11.6 (9.5-13.5) fL Neut % (Auto) 70.8 (43.0-75.0) % Lymph % (Auto) 23.2 (20.5-60.0) % Poinsett % (Auto) 4.8 (1.7-12.0) % Eos % (Auto) 0.4 L (0.9-7.0) % Baso % (Auto) 0.6 (0.2-2.0) % Neut # (Auto) 6.4 (1.4-6.5) 10^3/uL Lymph # (Auto) 2.1 (1.2-3.8) 10^3/uL Poinsett # (Auto) 0.4 (0.3-0.8) 10^3/uL Eos # (Auto) 0.0 (0.0-0.7) 10^3/uL Baso # (Auto) 0.1 (0.0-0.1) 10^3/uL Abs Immat Gran (auto) 0.02 (0.00-0.03) 10^3/uL Imm/Tot Granulo (auto) 0.2 (0.0-0.5) % Sodium 140 (136-145) mmol/L Potassium 3.6 (3.5-5.1) mmol/L Chloride 104 (98-107) mmol/L Carbon Dioxide 25.4 (21.0-32.0) mmol/L Anion Gap 14.2 BUN 7.0 (7.0-18.0) mg/dL Creatinine 0.52 L (0.55-1.02) mg/dL Est GFR ( Amer) >60 (>=60 mL/min/1.73m^2) Est GFR (Non-Af Amer) >60 (>=60 mL/min/1.73m^2) BUN/Creatinine Ratio 13.5 Glucose 74 (74-106) mg/dL Calcium 8.8 (8.5-10.1) mg/dL HCG, Quant 19535 mIU/mL Blood Type O Positive Antibody Screen Negative Imaging Data OB ultrasound: Attestation: I personally reviewed and interpreted this imaging study as follows: Radiologist's impression: ITS Impressions Ultrasound 04/26/25 07:06 IMPRESSION: SINGLE LIVE INTRAUTERINE GESTATION WITH ULTRASOUND AGE OF 16 WEEKS 3 DAYS. MARGINAL PREVIA. INDETERMINANT AREA BETWEEN THE END OF THE PLACENTA AND THE CERVICAL OS, DESCRIBED. FOLLOW-UP ON SUBSEQUENT ULTRASOUNDS IS SUGGESTED. Impression dictated by: Chelsey Rucker M.D. 04/26/2025 8:37 AM Dictation Location: [place] [address] Electronically authenticated by: [id number] Y Date: 04/26/2025 08:37 Discharge Plan Discharge Chief Complaint: Urogenital-Female Clinical Impression: Vaginal bleeding in Patient Disposition: Home, Self-Care Time of Disposition Decision: 08:48 Condition: Good Mode of Transportation: Private Vehicle Prescriptions / Home Meds: No Action SOW-wmgz-VS-omega 3 fatty no.1 27-1-300 mg capsule 1 cap PO DAILY Print Language: Azeri Referrals: Pan Martínez DO [Physician, BATTERY RECHARGER] - 1 week Fady Tsang MD [Primary Care Provider, Family Practice] - 1 week Discharge Date/Time: 04/26/25 09:04
== END 2025-04-26 09:04 | disposition home or self-care (01) ==
PROVIDERS: Internal Medicine; Emergency Provider Student in an Organized Health Care Education/Training Program; PCP Family Medicine
DX: O20.9 Hemorrhage in early pregnancy, unspecified (principal); Z3A.16 16 weeks gestation of pregnancy
CPT/HCPCS: 36415; 76815; 80048; 84702; 85025; 86850; 86900; 86901; 99284

== ENCOUNTER 2025-05-09 12:52 | Outpatient (REF) | payer BC, MEDICAID, SELFPAY ==
--- OUTSIDE RECORDS SUMMARY | 2025-05-09 08:30 | XMS_ITS | Encounter Summary ---
Author Organization [facility] Address [address] [place] [address] Care Team Providers Care Assistant Tennis Professional Name Role Phone Fady Tsang MD Primary Care Provider [phone] Reason for Visit * ReasonCommentsRoutine VisitSTI Screening Encounter Details DateTypeDepartmentCare Team (Latest Contact Info)Zxvdjtryaug45/21/2025 8:30 AM EDTRoutine [facility] [address] [place] [address] Agata Ross PA [address] [place] [address] 18 weeks gestation of ([facility]); Second trimester ([facility]); Well woman exam with routine gynecological exam; Exposure to STD; Need for maternal serum alpha-protein (MSAFP) screening ([facility]); Screening, , for anatomic survey ([facility]) Social History Tobacco UseTypesPacks/DayYears UsedDateSmoking Tobacco: NeverSmokeless Tobacco: NeverAlcohol UseStandard Drinks/WeekCommentsYes4 (1 standard drink = 0.6 oz pure alcohol)Caffeine intake: noneEstimated Date of DeliveryCommentsYes 10/08/2025ased on Ultrasound, FHR-180Sex and Gender InformationValueDate RecordedSex Assigned at BirthNot on fileLegal UsfNqixmn80/15/2023 8:32 PM EDT Gender IdentityNot on fileSexual OrientationNot on filedocumented as of this encounter Last Filed Vital Signs Vital SignReadingTime TakenCommentsBlood Nqzoeutn189/7205/09/2025 8:54 AM EDT Pulse--Temperature--Respiratory Rate--Oxygen Saturation--Inhaled Oxygen Concentration--Nbtyhf38.6 kg (171 lb)05/09/2025 8:54 AM EDTHeight--Body Mass Index29.3510 3:18 PM EDTdocumented in this encounter Progress Notes * EDMOND Osborn - 05/09/2025 8:30 AM EDT Reason for Appointment: Patient ID: Latha Cuevas is a 25 y.o. female who presents for Routine Visit and STI Screening Patient presents today for STD Check. and Return OB appointment. 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 syndrome (HCC) Hyperplasia of tonsils Hypothyroidism (acquired) [...] Eczema Fatigue Gastritis without bleeding GBS (Guillain Galeton syndrome) (HCC) Guillain Andrews?? syndrome (HCC) Hyperplasia of tonsils Hypothyroidism (acquired) [...] appearance. She is well-developed. Genitourinary: Vulva normal. Right Adnexa: not tender and no mass present. Left Adnexa: not tender and no mass present. No cervical discharge. Breasts: Breasts are soft. Right: Normal. Left: Normal. HENT: Head: Normocephalic. Nose: Nose normal. Mouth/Throat: Mouth: Mucous membranes are moist. Cardiovascular: Rate and Rhythm: Normal rate and regular rhythm. Pulmonary: Effort: Pulmonary effort is normal. Breath sounds: Normal breath sounds. Abdominal: General: Bowel sounds are normal. There is no distension. Palpations: Abdomen is soft. Tenderness: There is no abdominal tenderness. There is no guarding or rebound. Musculoskeletal: General: No swelling. Normal range of motion. Cervical back: Normal range of motion. Right lower leg: No edema. Left lower leg: No edema. Neurological: General: No focal deficit present. Mental Status: She is alert and oriented to person, place, and time. Skin: General: Skin is warm and dry. Psychiatric: Mood and Affect: Mood normal. Behavior: Behavior normal. Vitals and nursing note reviewed. Exam conducted with a elevator technician present. Vitals: Estimated body mass index is 28.75 kg/m?? as calculated from the following: Height as of 04/21/23: 5' 4 . Weight as of 04/10/25: 167 lb 8 oz. BP: No LMP recorded. Patient is . Assessment/Plan ICD-10-CM 1. 18 weeks gestation of ([facility]) Z3A.18 POCT urinalysis dipstick manually resulted 2. Second trimester ([facility]) Z34.92 3. Well woman exam with routine gynecological exam Z01.419 CANCELED: Pap Smear 4. Exposure to STD Z20.2 SURESWAB(R) ADVANCED VAGINITIS PLUS, TMA CHLAMYDIA TRACHOMATIS (GENITO/STI) Neisseria gonorrhea DNA probe, direct 5. Need for maternal serum alpha-protein (MSAFP) screening ([facility]) Z36.1 Alpha fetoprotein, maternal Alpha fetoprotein, maternal 6. Screening, , for anatomic survey ([facility]) Z36.89 US OB 14+ weeks anatomy scan Return OB/Annual Exam: Patient presents today for an Pap and cx's/routine obstetrics appointment. Patient is currently 18w2d . Patient is doing well and states she has no complaints. Pt states she has been bleedingdue to a hematoma. Cultures and Pap was obtained without difficulty and patient was given msAFP/Anatomy US order to have obtained. Orders Placed This Encounter Procedures US OB 14+ weeks anatomy scan CHLAMYDIA TRACHOMATIS (GENITO/STI) Neisseria gonorrhea DNA probe, direct Alpha fetoprotein, maternal POCT urinalysis dipstick manually resulted Follow Up: Patient is to return to our office in 4 weeks for routine OB appointment Documented by Cynthia Maya MA on behalf of: EDMOND Osborn documented in this encounter Plan of Treatment DateTypeDepartmentCare Team (Latest Contact Info)Cwaeumqnqeo64/04/2025 1:00 PM ESTAncillary [place] [address] 06/07/2025 11:20 AM ESTRoutine [place] [address] Pan Martínez, DO [address] [place] [address] [place] [address] NameTypePriorityAssociated DiagnosesOrder ScheduleSURESWAB(R) ADVANCED VAGINITIS PLUS, TMAPathology and CytologyRoutine Exposure to STD Ordered: 05/09/2025HLAMYDIA TRACHOMATIS (GENITO/STI)LabRoutine Exposure to STD Ordered: 05/09/2025Neisseria gonorrhea DNA probe, directLabRoutine Exposure to STD Ordered: 05/09/2025US OB 14+ weeks anatomy scanImagingRoutine Screening, , for anatomic survey ([facility]) Expected: 05/09/2025, Expires: 08/09/2025lpha fetoprotein, maternalLabRoutine Need for maternal serum alpha-protein (MSAFP) screening ([facility]) Expected: 05/09/2025 (Approximate), Expires: 05/09/2026Pap SmearPathology and CytologyRoutine Well woman exam with routine gynecological exam Ordered: 05/09/2025documented as of this encounter Procedures Procedure NamePriorityDate/TimeAssociated DiagnosisCommentsPOCT URINALYSIS KUEGGOCWSxhokll85/21/2025 8:54 AM EDT 18 weeks gestation of ([facility]) documented in this encounter Results * POCT urinalysis dipstick manually resulted (05/09/2025 8:54 AM EDT)Component ValueRef RangeTest MethodAnalysis TimePerformed AtPathologist SignatureColor, UAYellowClarity, UAClearGlucose, UANegativeNegative - 1999(110) ++++ mg/dL Bilirubin, UANegativeNegative - 4(70) +++ mg/dLKetones, UANegativeNegative - 160(16) ++++ mg/dLSpec Grav, UA1.0051 - 1.03Blood, UANegativeNegative - 50 Gabriele/mcLpH, UA7.55 - 9Protein, UANegativeNegative - 2000(20) ++++ mg/dL Urobilinogen, UA1.00.2 - 12 mg/dLLeukocytes, UA1+Negative - 500+++ Alexsandra/mcL Nitrite, UANegativeNegative - PositiveSpecimen (Source)Anatomical Location / LateralityCollection Method / VolumeCollection TimeReceived TimeUrine 05/09/2025 8:54 AM EDT Narrative Authorizing ProviderResult TypeResult StatusAgata Ross PAPOINT OF CARE TEST ENTER/EDIT ORDERABLESFinal Result documented in this encounter Visit Diagnoses Diagnosis 18 weeks gestation of ([facility]) Second trimester ([facility]) state, incidental Well woman exam with routine gynecological exam Routine gynecological examination Exposure to STD Need for maternal serum alpha-protein (MSAFP) screening ([facility]) Screening, , for anatomic survey ([facility]) Encounter for anatomic survey documented in this encounter Care Teams Team MemberRelationshipSpecialtyStart DateEnd Fady Tsang MD [address] [place] [address] PCP - GeneralFamily Jjwgmwwm62/3/23documented as of this encounter
--- OUTSIDE RECORDS SUMMARY | 2025-05-09 12:57 | XMS_ITS | Encounter Summary ---
Author Organization [facility] Address [address] [facility] [place] [address] Care Team Providers Care Railway Equipment Operator Name Role Phone Fady Tsang MD Primary Care Provider [phone] Encounter Details DateTypeDepartmentCare Team (Latest Contact Info)Esxtpzdxhjs39/21/2025amboo flowsheet [facility] [address] [place] [address] Agata Ross PA [address] [facility] [address] [place], [place] [id number] Social History Tobacco UseTypesPacks/DayYears UsedDateSmoking Tobacco: NeverSmokeless Tobacco: NeverAlcohol UseStandard Drinks/WeekCommentsYes4 (1 standard drink = 0.6 oz pure alcohol)Caffeine intake: noneEstimated Date of DeliveryCommentsYes 6Based on Ultrasound, FHR-180Sex and Gender InformationValueDate RecordedSex Assigned at BirthNot on fileLegal MtuEeqyhf32/15/2023 8:32 PM EDT Gender IdentityNot on fileSexual OrientationNot on filedocumented as of this encounter Plan of Treatment DateTypeDepartmentCare Team (Latest Contact Info)Mvkyhazmulj58/04/2025 1:00 PM ESTAncillary Procedure [facility] [address] [facility] [place] [address] 06/07/2025 11:20 AM ESTRoutine [facility] [address] [place] [address] Pan Martínez, DO [address] [place] [address] [place] [address] documented as of this encounter Visit Diagnoses Not on filedocumented in this encounter Care Teams Team MemberRelationshipSpecialtyStart DateEnd Date Fady Tsang MD [address] [place] [address] PCP - GeneralFamily Yxplkbfh68/3/23documented as of this encounter
--- OUTSIDE RECORDS SUMMARY | 2025-05-09 12:57 | XMS_ITS | Patient Health Record ---
Author Organization [facility] in [place] Address [address] [place] [address] Care Team Providers Care Student Outreach Coordinator Name Role Phone Kentrell Tsang Primary Care Provider [phone] Allergies No Known Allergies Results Component Value Reference Range Notes Manual Differential Reviewed date:07/14/2024 05:56:16 PM Interpretation: Performing Lab: Notes/Report: [facility] , Segmented Neutrophils % Manual 82.0 43.0-75.0 Lymphocytes Percent Mthytr12.020.5-60.0 %Monocytes Percent Manual4.01.7-12.0 % Eosinophils Percent Manual0.00.9-7.0 %Basophils Percent Manual1.00.2-2.0 % Segmented Neut Absolute Lbgfpz88.091.4-6.5 10 3/uLLymphocytes Absolute Manual 3.181.20-3.80 10 3/uLMonocytes Absolute Manual0.980.30-0.80 10 3/uLEosinophils Absolute Manual0.000.00-0.70 10 3/uLBasophils Abs Manual0.240.00-0.10 10 3/uL Performing Lab:see note - [facility] LBBox Test Reviewed date:07/14/2024 05:56:16 PM Interpretation: Performing Lab: Notes/Report: RADHA NOVAK- TO [facility] ,BOX Test Sent OutKLLANE BETKEBOX Test Reference LabFIRELANDSBOX Test Date Sent07/13/24BOX Test ResultSEE SCANNED REPORTPerforming Lab:see [facility] LBCBC AUTO DIFF Reviewed date:03/09/2025 04:44:58 PM Interpretation: Performing Lab: Notes/Report: [facility] ,White Blood Count10.14.0-11.0 10 3/uLRed Blood Count4.594.20-5.40 10 6/uL Eolyqziyte66.512.0-16.0 g/rIPhqfkmtqhb35.136.0-48.0 %Mean Corpuscular Eosukc26.2 81.0-99.0 fLMean Corpuscular Vwgmlfykof84.426.7-34.0 pgMean Corpuscular HGB Conc 34.529.9-35.2 g/dLRed Cell Distribution Width12.611.0-15.0 %Platelet Bdtdb915 150-450 10 3/uLMean Platelet Jxgwcy31.29.5-13.5 fLNeutrophils Percent Auto67.7 43.0-75.0 %Lymphocytes Percent Auto26.020.5-60.0 %Monocytes Percent Auto5.01.7- 12.0 %Eosinophils Percent Auto0.50.9-7.0 %Basophils Percent Auto0.60.2-2.0 % Immature Granulocytes Pct Auto0.20.0-0.5 %Neutrophils Absolute Auto6.91.4-6.5 10 3/uLLymphocytes Absolute Auto2.61.2-3.8 10 3/uLMonocytes Absolute Auto0.50.3-0.8 10 3/uLEosinophils Absolute Auto0.10.0-0.7 10 3/uLBasophils Absolute Auto0.10.0- 0.1 10 3/uLImmature Granulocytes Abs Auto0.020.00-0.03 10 3/uLPerforming Lab:see noteML - [facility] LBRUBELLA AB IGG Reviewed date:03/12/2025 11:06:37 AM Interpretation: Performing Lab: Notes/Report: [facility] ,Rubella Antibodies, IgG4.47Immune >0.99 index Non-immune <0.90 Equivocal 0.90 - 0.99 Immune >0.99 Performed at: [address] [id number] Sand Mill Operator Facing Sand: Samson Ibarra PhD, Phone: [phone] Performing Lab:see noteLC - [facility] LBHIV Ab/p24 Ag with Reflex Reviewed date:03/12/2025 11:06:37 AM Interpretation: Performing Lab: Notes/Report: [facility] ,HIV Ab/p24 Ag ScreenNon ReactiveNon Reactive HIV-1/HIV-2 antibodies and HIV-1 p24 antigen were NOT detected. There is no laboratory evidence of HIV infection. HIV Negative Performed at: [address] [id number] Sand Mill Operator Facing Sand: Samson Ibarra PhD, Phone: [phone] Performing [facility] LBRapid Plasma Reagin, Quant Reviewed date:03/12/2025 11:06:37 AM Interpretation: Performing Lab: Notes/Report: [facility] ,Rapid Plasma Reagin, QuantNon ReactiveNonRea<1:1 titer Please Note: This test does not meet current guidelines for screening and diagnosis of syphilis. This test is intended for following treatment response in patients being treated for syphilis infection. To screen for syphilis infection, a reflex cascade that includes both RPR and a treponema-specific assay should be utilized, such as Treponema pallidum (Syphilis) Screening Graham (081062) or Rapid Plasma Reagin (RPR) Test With Reflex to Quantitative RPR and Confirmatory Treponema pallidum Antibodies (643305). Performed at: [address] [id number] Sand Mill Operator Facing Sand: Samson Ibarra PhD, Phone: [phone] Performing Lab[facility] LBHCV Antibody RFX to Quant PCR Reviewed date:03/12/2025 11:06:37 AM Interpretation: Performing Lab: Notes/Report: [facility] ,HCV AbNon ReactiveNon ReactiveInterpretation:Comment. Not infected with HCV unless early or acute infection is suspected (which may be delayed in an immunocompromised individual), or other evidence exists to indicate HCV infection. Performed at: [address] [id number] Sand Mill Operator Facing Sand: Samson Ibarra PhD, Phone: [phone] Performing Lab[facility] LBHBsAg Screen Reviewed date:03/12/2025 11:06:37 AM Interpretation: Performing Lab: Notes/Report: [facility] ,HBsAg ScreenNegativeNegative Performed at: [facility] [address] [place], [place] [id number] Sand Mill Operator Facing Sand: Samson Ibarra PhD, Phone: [phone] Performing Lab:see note - [facility] LBUrine Culture, Routine Reviewed date:03/13/2025 09:39:15 AM Interpretation: Performing Lab: Notes/Report: [facility] ,Urine Culture, RoutineSee Below For Report Urine Culture, Routine Urine Culture, RoutineNo growth Urine Culture, Routine Urine Culture, RoutinePerformed at: [facility] Urine Culture, Routine Urine Culture, [address] [place], [place] [id number] Urine Culture, Routine Urine Culture, RoutineLab Director: Samson Ibarra PhD, Phone: [phone] Urine Culture, Routine Performing Lab:see note - [facility] LB SEE REPORT - Advertising Clerk Id information not found for OBX-specific box builder legend [place] Box Reviewed date:03/09/2025 05:19:20 PM Interpretation: Performing Lab: Notes/Report: [facility] ,BOX Test Sent OutUNITYBOX Test Reference LabUNITYBOX Test Date Sent03/09/2025 Performing Lab:see noteML - [facility] LBChlamydia/GC Amplification Reviewed date:04/17/2025 09:01:41 PM Interpretation: Performing Lab: Notes/Report: vaginal [facility] ,Chlamydia trachomatis, NAANegativeNegativeNeisseria gonorrhoeae, NAANegative Negative Performed at: [address] [id number] Sand Mill Operator Facing Sand: Antonieta Clifton MD, Phone: [phone] Performing Lab[facility] LBCBC AUTO DIFF Reviewed date:04/26/2025 08:31:52 AM Interpretation: Performing Lab: Notes/Report: [facility] ,White Blood Count9.04.0-11.0 10 3/uLRed Blood Count4.114.20-5.40 10 6/uL Batgnbvmbg12.512.0-16.0 g/tNIamjofbihx93.336.0-48.0 %Mean Corpuscular Kwamgq47.9 81.0-99.0 fLMean Corpuscular Pqmzxxkpjr57.426.7-34.0 pgMean Corpuscular HGB Conc 35.429.9-35.2 g/dLRed Cell Distribution Width12.611.0-15.0 %Platelet Lpiop853 150-450 10 3/uLMean Platelet Pigoqv78.69.5-13.5 fLNeutrophils Percent Auto70.8 43.0-75.0 %Lymphocytes Percent Auto23.220.5-60.0 %Monocytes Percent Auto4.81.7- 12.0 %Eosinophils Percent Auto0.40.9-7.0 %Basophils Percent Auto0.60.2-2.0 % Immature Granulocytes Pct Auto0.20.0-0.5 %Neutrophils Absolute Auto6.41.4-6.5 10 3/uLLymphocytes Absolute Auto2.11.2-3.8 10 3/uLMonocytes Absolute Auto0.40.3-0.8 10 3/uLEosinophils Absolute Auto0.00.0-0.7 10 3/uLBasophils Absolute Auto0.10.0- 0.1 10 3/uLImmature Granulocytes Abs Auto0.020.00-0.03 10 3/uLPerforming Lab:see noteML - [facility] LBPREG QUANT HCG Reviewed date:04/26/2025 08:31:52 AM Interpretation: Performing Lab: Notes/Report: [facility] ,HCG Olvlynmskmpz33286 5-50 0.2-1 WEEK 50-500 1-2 WEEKS 100-5,000 2-3 WEEKS 500-10,000 3-4 WEEKS 1,000-50,000 4-5 WEEKS 10,000-100,000 5-6 WEEKS 15,000-200,000 6-8 WEEKS 10,000-100,000 2-3 MONTHS Performing Lab:see noteML - [facility] LBPROF CHEM 8 (BAS METB) Reviewed date:04/26/2025 08:31:52 AM Interpretation: Performing Lab: Notes/Report: [facility] ,Veymnl091791-466 mmol/LPotassium3.63.5-5.1 mmol/WPievzigp98767-890 mmol/LCarbon Lqcmsuy87.421.0-32.0 mmol/LAnion Gap14.4Bgpggkg7587-883 mg/dLBlood Urea Nitrogen 7.07.0-18.0 mg/dLCreatinine0.520.55-1.02 mg/dLEstimated GFR ( Akua>60 >=60 mL/min/1.73m 2Estimated GFR (Non- Deborah>60>=60 mL/min/1.73m 2BUN Creatinine Ratio13.3Teqisek1.88.5-10.1 mg/dLPerforming Lab:see noteML - [facility] LBUS OB >= 14 weeks Fetus Reviewed date:04/26/2025 08:52:44 AM Interpretation: Performing Lab: Notes/Report: Source Facility: [facility]-[address] [place] [address] Ultrasound Report Signed Patient: LATHA STEEL MR#: [id number] : 2000 Acct:[id number] Age/Sex: 25 / F ADM Date: 04/26/25 Loc: ER Attending Dr: Ordering Physician: Korey Lovell Date of Service: 04/26/25 Procedure(s): US OB >= 14 weeks Fetus Accession Number(s): [id number] cc: Jesus Tsang M.D.; Korey Lovell [place] [id number] Patient Name: LATHA STEEL [facility]N: [facility]:[id number] date: 2000 Sex: F Assigned Patient Location: ER Current Patient Location: ER Accession/Order Number: [id number] Exam Date: 04/26/2025 07:07 Report Date: 04/26/2025 08:37 At the request of: KOREY LOVELL DO Procedure: US OB >= 14 weeks Fetus ULTRASOUND OB >14 WEEKS CLINICAL DATA: Vaginal spotting for the past 4 weeks COMPARISON: None There is a single echogenic gestation in transverse presentation with head to maternal right. The amniotic fluid volume is subjectively normal. The placenta is anterior and marginal in position. Between the placenta and cervix is a hypoechoic avascular area with possible amniotic band around it. This measures approximately 4.3 x 3.5 x 2.1 cm in size. It may be a loculated collection of fluid with some low-level debris. Acute hematoma is not suspected. The cervix appears closed with a length of approximately 5.9 cm. The following measurements were obtained: Biparietal diameter 3.2 cm 16 weeks 1 day 32% Head circumference 12.8 cm 16 weeks 4 days 43% Abdominal circumference 10.9 cm 16 weeks 5 days 62% Femur length 2.1 cm 16 weeks 2 days 42% The composite ultrasound age based these measurements is 16 weeks 3 days +/- 1 week 1 day. This correlates with dates based on last menstrual period. US/US OB >= 14 weeks Fetus IMPRESSION: SINGLE LIVE INTRAUTERINE GESTATION WITH ULTRASOUND AGE OF 16 WEEKS 3 DAYS. MARGINAL PREVIA. INDETERMINANT AREA BETWEEN THE END OF THE PLACENTA AND THE CERVICAL OS, DESCRIBED. FOLLOW-UP ON SUBSEQUENT ULTRASOUNDS IS SUGGESTED. Impression dictated by: Chelsey Rucker M.D. 04/26/2025 8:37 AM Dictation Location: [place] [address] Electronically authenticated by: [id number] Y Date: 04/26/2025 08:37 Dictated By: Chelsey Rucker M.D. Signed By: 04/26/2540 DD/ 6 TD/TT: Nutrition Helper:ARMANDO [place], reflex to culture Reviewed date:04/15/2025 12:47:02 PM Interpretation: Performing Lab: Notes/Report: [facility] ,Color UrineYELLOWYELLOWClarity UrineCLEARCLEARSpecific Rawlings Urine>=1.030 1.005-1.025pH Urine6.05.0-9.0Protein UrineNEGATIVENEG/TRACE mg/dLGlucose Urine UANEGATIVENEGATIVE mg/dLBilirubin UrineNEGATIVENEGATIVEKetones UrineNEGATIVE NEGATIVE mg/dLBlood UrineNEGATIVENEGATIVENitrite UrineNEGATIVENEGATIVE Urobilinogen Urine0.20.2-1.0 EU/dLLeukocyte Esterase UrineNEGATIVENEGATIVEWBC Urine2-5NONE SEEN #/HPFRBC Urine0-20-2 #/HPFBacteria UrineSMALLNONE SEEN #/HPF Mucus UrineLARGENONE SEENSquamous Epithelial Cell UrineFEWNONE/RARE #/LPF Crystals Seen?None SeenNone Seen #/HPFCast Seen?NONE SEENNONE SEEN #/LPFUrine Culture IndicatedYES-FRMCPerforming Lab:see noteML - [facility] LBCBC AUTO DIFF Reviewed date:04/15/2025 12:47:02 PM Interpretation: Performing Lab: Notes/Report: [facility] ,White Blood Count11.54.0-11.0 10 3/uLRed Blood Count4.294.20-5.40 10 6/uL Miwzfdqmxs58.812.0-16.0 g/jVJmcnlxlipt38.536.0-48.0 %Mean Corpuscular Jlwmnj04.1 81.0-99.0 fLMean Corpuscular Fyriwfuvtr36.826.7-34.0 pgMean Corpuscular HGB Conc 35.129.9-35.2 g/dLRed Cell Distribution Width12.711.0-15.0 %Platelet Vyjma591 150-450 10 3/uLMean Platelet Mkhxrn98.29.5-13.5 fLNeutrophils Percent Auto58.0 43.0-75.0 %Lymphocytes Percent Auto34.820.5-60.0 %Monocytes Percent Auto5.91.7- 12.0 %Eosinophils Percent Auto0.60.9-7.0 %Basophils Percent Auto0.40.2-2.0 % Immature Granulocytes Pct Auto0.30.0-0.5 %Neutrophils Absolute Auto6.71.4-6.5 10 3/uLLymphocytes Absolute Auto4.01.2-3.8 10 3/uLMonocytes Absolute Auto0.70.3-0.8 10 3/uLEosinophils Absolute Auto0.10.0-0.7 10 3/uLBasophils Absolute Auto0.10.0- 0.1 10 3/uLImmature Granulocytes Abs Auto0.030.00-0.03 10 3/uLPerforming Lab:see noteML - [facility] LBType and Screen Reviewed date:03/10/2025 08:32:58 AM Interpretation: Performing Lab: Notes/Report: [facility] ,Blood TypeO PositiveAntibody ScreenNEGATIVEGLYCOHEMOGLOBIN A1C Reviewed date:03/10/2025 08:32:58 AM Interpretation: Performing Lab: Notes/Report: [facility] ,Glycohemoglobin A1C4.84.5-6.2 % ADA RECOMMENDED LIMIT 4.0 - 6.0 ADA THERAPEUTIC TARGET < 7.0 ACTION SUGGESTED > 7.0 Estimated Average Wgdukyw92Mshorfnvon Lab:see note - [facility] LB DRUG SCREEN RAPID (URINE) Reviewed date:03/10/2025 08:32:58 AM Interpretation: Performing Lab: Notes/Report: [facility] ,Cannabinoid Screen UrineNEGATIVENEGATIVEPhencyclidine Screen UrineNEGATIVE NEGATIVECocaine Screen UrineNEGATIVENEGATIVEMethamphetamines Screen Urine NEGATIVENEGATIVEOpiate Screen UrineNEGATIVENEGATIVEAmphetamine Screen Urine NEGATIVENEGATIVEBenzodiazepines Screen UrineNEGATIVENEGATIVETricyclic Antidepressant UrineNEGATIVENEGATIVEMethadone Screen UrineNEGATIVENEGATIVE Barbiturates Screen UrineNEGATIVENEGATIVEOxycodone Screen UrineNEGATIVENEGATIVE Buprenorphine Screen UrineNEGATIVENEGATIVE DRUG CLASS TEST SYSTEM CUT-OFF CONCENTRATIONS ARE FOLLOWS: AMP (Amphetamine): 500 ng/mL BAR (Barbiturates): 200 ng/mL BZO (Benzodiazepines): 150 ng/mL BUP (Buprenorphine): 10 ng/mL NAA (Cocaine): 150 ng/mL mAMP (Methamphetamine): 500 ng/mL MTD (Methadone): 200 ng/mL OPI (Opiates): 100 ng/mL OXY (Oxycodone): 100 ng/mL PCP (Phencyclidine): 25 ng/mL THC (Cannabinoids): 50 ng/mL TCA (Trycyclic Antidepressants): 300 ng/mL Performing Lab:see note - [facility] LBPREG QUANT HCG Reviewed date:02/02/2025 05:11:57 PM Interpretation: Performing Lab: Notes/Report: [facility] ,HCG Dldcfwlltcdz861 5-50 0.2-1 WEEK 50-500 1-2 WEEKS 100-5,000 2-3 WEEKS 500-10,000 3-4 WEEKS 1,000-50,000 4-5 WEEKS 10,000-100,000 5-6 WEEKS 15,000-200,000 6-8 WEEKS 10,000-100,000 2-3 MONTHS Performing Lab:see note - [facility] LBECG 12 lead Reviewed date:12/28/2024 12:51:24 PM Interpretation: Performing Lab: Notes/Report: Source Facility: [facility]-[address] [place] [address] [place] [address] Electrocardiograph Report Signed Patient: LATHA STEEL MR#: [id number] : 2000 Acct:[id number] Age/Sex: 24 / F ADM Date: 12/27/24 Loc: ER Attending Dr: Ordering Physician: Agata Meza Date of Service: 12/27/24 Procedure(s): ECG 12 lead Accession Number(s): [id number] cc: [facility] Test Date: 2024-12-27 Pat Name: LATHA STEEL Department: Room: - Gender: Female Gasoline Tester: : 2000 Requested By: 0923 Order Number: [id number] Reading MD: ANNA LI M.D. Measurements Intervals Britton Rate: 77 P: 48 HI: 172 QRS: 37 QRSD: 102 T: 49 QT: 356 QTc: 388 Interpretive Statements 1100 Sinus rhythm 2420 RSR (QR) in lead V1/V2, consistent with right ventricular conduction delay 9130 borderline ECG Compared to ECG 10/30/2024 15:07:52 No significant changes Electronically Signed On 12-27-2024 21:45:34 EDT by ANNA LI M.D. Dictated By: ANNA LI Signed By: 12/27/24 2145 DD/ 1849 TD/TT: Nutrition Helper:Upper Respiratory Culture Reviewed date:01/01/2025 12:19:59 PM Interpretation: Performing Lab: Notes/Report: [facility] ,Upper Respiratory CultureSee Below For Report Upper Respiratory Culture Upper Respiratory CultureRoutine respiratory hubert Upper Respiratory Culture Upper Respiratory CulturePerformed at: CB - [facility] Upper Respiratory Culture Upper Respiratory [address] [place], [place] [id number] Upper Respiratory Culture Upper Respiratory CultureLab Director: Samson Ibarra PhD, Phone: [phone] Upper Respiratory Culture Performing Lab:see note LC - [facility] LB SEE REPORT - Advertising Clerk Id information not found for OBX-specific box builder legend TSH W/ REFLEX FT4 Reviewed date:12/27/2024 09:21:45 PM Interpretation: Performing Lab: Notes/Report: [facility] ,TSH W/ REFLEX FT42.0030.358-3.740 uIU/mLPerforming Lab:see note - [facility] LBTSH Reviewed date:12/27/2024 09:21:45 PM Interpretation: Performing Lab: Notes/Report: [facility] ,Thyroid Stimulating Hormone2.0030.358-3.740 uIU/mLPerforming Lab:see note - [facility] LBSTREPT SCREEN Reviewed date:12/27/2024 09:21:45 PM Interpretation: Performing Lab: Notes/Report: [facility] ,Strep A Antigen ScreenNegativePerforming Lab:[facility] LBPROF 14(COMP METB) Reviewed date:12/27/2024 09:21:45 PM Interpretation: Performing Lab: Notes/Report: [facility] ,Dooask946864-797 mmol/LPotassium4.03.5-5.1 mmol/HFfyiahfi10577-424 mmol/LCarbon Tbytqmd29.721.0-32.0 mmol/LAnion Gap15.8Gdpeiat8789-015 mg/dLBlood Urea Nitrogen 14.07.0-18.0 mg/dLCreatinine0.810.55-1.02 mg/dLEstimated GFR ( Akua>60 >=60 mL/min/1.73m 2Estimated GFR (Non- Deborah>60>=60 mL/min/1.73m 2BUN Creatinine Ratio17.9Knmzsxj7.68.5-10.1 mg/dLBilirubin Total0.30.2-1.0 mg/dL Aspartate Amino Zcphzvivsds8616-56 U/LAlanine Tantotmtlbsvjlkc3993-93 U/L Alkaline Moniemubwpt5169-615 U/LTotal Protein7.86.4-8.2 g/dLAlbumin Level4.03.4- 5.0 g/dLGlobulin3.8Albumin Globulin Ratio1.1Performing Lab:see noteML - [facility] LBCBC AUTO DIFF Reviewed date:12/27/2024 09:21:45 PM Interpretation: Performing Lab: Notes/Report: [facility] ,White Blood Count8.34.0-11.0 10 3/uLRed Blood Count4.594.20-5.40 10 6/uL Unanjcumxv77.312.0-16.0 g/kUEjxnfmrzvy69.736.0-48.0 %Mean Corpuscular Vexywv92.3 81.0-99.0 fLMean Corpuscular Oeadmvwevz99.026.7-34.0 pgMean Corpuscular HGB Conc 34.429.9-35.2 g/dLRed Cell Distribution Width13.011.0-15.0 %Platelet Dqlek944 150-450 10 3/uLMean Platelet Wcknsw22.39.5-13.5 fLNeutrophils Percent Auto67.2 43.0-75.0 %Lymphocytes Percent Auto25.820.5-60.0 %Monocytes Percent Auto5.71.7- 12.0 %Eosinophils Percent Auto0.40.9-7.0 %Basophils Percent Auto0.70.2-2.0 % Immature Granulocytes Pct Auto0.20.0-0.5 %Neutrophils Absolute Auto5.61.4-6.5 10 3/uLLymphocytes Absolute Auto2.11.2-3.8 10 3/uLMonocytes Absolute Auto0.50.3-0.8 10 3/uLEosinophils Absolute Auto0.00.0-0.7 10 3/uLBasophils Absolute Auto0.10.0- 0.1 10 3/uLImmature Granulocytes Abs Auto0.020.00-0.03 10 3/uLPerforming Lab:see noteML - [facility] LBECG 12 lead Reviewed date:10/31/2024 08:27:43 PM Interpretation: Performing Lab: Notes/Report: Source Facility: [facility]-[address] [place] [address] [place] [address] Electrocardiograph Report Signed Patient: LATHA STEEL MR#: [id number] : 2000 Acct:[id number] Age/Sex: 24 / F ADM Date: 10/30/24 Loc: ER Attending Dr: Ordering Physician: Memo Lynch Date of Service: 10/30/24 Procedure(s): ECG 12 lead Accession Number(s): [id number] cc: [facility] Test Date: 2024-10-30 Pat Name: LATHA STEEL Department: Room: - Gender: Female Gasoline Tester: : 2000 Requested By: [id number] Order Number: [id number] Reading MD: ANNA LI M.D. Measurements Intervals Britton Rate: 77 P: 33 HI: 164 QRS: 18 QRSD: 104 T: 41 QT: 382 QTc: 413 Interpretive Statements 1100 Sinus rhythm 2440 Incomplete right bundle branch block 9130 borderline ECG Compared to ECG 10/20/2023 12:22:15 No significant changes Electronically Signed On 10-31-2024 7:36:14 EDT by ANNA LI M.D. Dictated By: ANNA LI Signed By: 10/31/24 0736 DD/ 1507 TD/TT: Nutrition Helper:ARMANDO [place], reflex to culture Reviewed date:10/30/2024 06:15:52 PM Interpretation: Performing Lab: Notes/Report: [facility] ,Color UrineLT. YELLOWYELLOWClarity UrineCLEARCLEARSpecific Rawlings Urine1.020 1.005-1.025pH Urine6.05.0-9.0Protein UrineNEGATIVENEG/TRACE mg/dLGlucose Urine UANEGATIVENEGATIVE mg/dLBilirubin UrineNEGATIVENEGATIVEKetones Urine>=80NEGATIVE mg/dLBlood UrineNEGATIVENEGATIVENitrite UrineNEGATIVENEGATIVEUrobilinogen Urine 0.20.2-1.0 EU/dLLeukocyte Esterase UrineNEGATIVENEGATIVEWBC Urine0-2NONE SEEN #/HPFRBC Urine0-20-2 #/HPFBacteria UrineTRACENONE SEEN #/HPFMucus UrineTRACENONE SEENSquamous Epithelial Cell UrineMODERATENONE/RARE #/LPFCrystals Seen?None Seen None Seen #/HPFCast Seen?NONE SEENNONE SEEN #/LPFUrine Culture IndicatedNO Performing Lab:see noteML - [facility] LBHCG Qualitative* Reviewed date:10/30/2024 04:13:26 PM Interpretation: Performing Lab: Notes/Report: [facility] ,HCG QualitativeNEGATIVENEGATIVEPerforming Lab:see noteML - [facility] LBPROF 14(COMP METB) Reviewed date:10/30/2024 04:13:26 PM Interpretation: Performing Lab: Notes/Report: [facility] ,Pbgvub879030-762 mmol/LPotassium3.23.5-5.1 mmol/YSxvbrwod42658-363 mmol/LCarbon Usgcxfi83.021.0-32.0 mmol/LAnion Gap15.1Crezsce0988-857 mg/dLBlood Urea Nitrogen 16.07.0-18.0 mg/dLCreatinine0.840.55-1.02 mg/dLEstimated GFR ( Akua>60 >=60 mL/min/1.73m 2Estimated GFR (Non- Deborah>60>=60 mL/min/1.73m 2BUN Creatinine Ratio19.5Byvnqdc2.68.5-10.1 mg/dLBilirubin Total0.40.2-1.0 mg/dL Aspartate Amino Oonjwheocqn0502-34 U/LAlanine Foliizqgzlxotovl7465-06 U/L Alkaline Akcprriaecj6667-907 U/LTotal Protein7.86.4-8.2 g/dLAlbumin Level4.53.4- 5.0 g/dLGlobulin3.3Albumin Globulin Ratio1.4Performing Lab:see noteML - [facility] LBLIPASE Reviewed date:10/30/2024 04:13:26 PM Interpretation: Performing Lab: Notes/Report: [facility] ,Jomnxf52.016.0-77.0 U/LPerforming Lab:see noteML - [facility] LBCBC AUTO DIFF Reviewed date:10/30/2024 03:40:05 PM Interpretation: Performing Lab: Notes/Report: [facility] ,White Blood Count9.54.0-11.0 10 3/uLRed Blood Count4.434.20-5.40 10 6/uL Hnbcpklqfy81.612.0-16.0 g/dEUdalxyykhs17.136.0-48.0 %Mean Corpuscular Olcszb29.7 81.0-99.0 fLMean Corpuscular Bgkwzuqooy73.426.7-34.0 pgMean Corpuscular HGB Conc 34.029.9-35.2 g/dLRed Cell Distribution Width12.811.0-15.0 %Platelet Vfydn226 150-450 10 3/uLMean Platelet Atskfc11.09.5-13.5 fLNeutrophils Percent Auto55.8 43.0-75.0 %Lymphocytes Percent Auto38.120.5-60.0 %Monocytes Percent Auto5.11.7- 12.0 %Eosinophils Percent Auto0.30.9-7.0 %Basophils Percent Auto0.60.2-2.0 % Immature Granulocytes Pct Auto0.10.0-0.5 %Neutrophils Absolute Auto5.31.4-6.5 10 3/uLLymphocytes Absolute Auto3.61.2-3.8 10 3/uLMonocytes Absolute Auto0.50.3-0.8 10 3/uLEosinophils Absolute Auto0.00.0-0.7 10 3/uLBasophils Absolute Auto0.10.0- 0.1 10 3/uLImmature Granulocytes Abs Auto0.010.00-0.03 10 3/uLPerforming Lab:see noteML - [facility] LBCT head/brain wo con Reviewed date:09/03/2024 02:00:54 PM Interpretation: Performing Lab: Notes/Report: Source Facility: [place] [address] [place] [address] CT Scan Report Signed Patient: LATHA STEEL MR#: [id number] : 2000 Acct:[id number] Age/Sex: 24 / F ADM Date: 09/02/24 Loc: CT Attending Dr: Jesus Tsang M.D. Ordering Physician: Jesus Tsang M.D. Date of Service: 09/02/24 Procedure(s): CT head/brain wo con Accession Number(s): [id number] cc: Jesus Tsang M.D. [place] [address] Patient Name: LATHA STEEL [facility]N: [facility]:[id number] date: 2000 Sex: F Assigned Patient Location: CT Current Patient Location: CT Accession/Order Number: [id number] Exam Date: 09/02/2024 08:43 Report Date: 09/02/2024 [...] M.D. Signed By: 09/02/241822 DD/ 19 TD/TT: Nutrition Helper:SARS-CoV-2 Ag* Reviewed date:08/01/2024 07:51:30 AM Interpretation: Performing Lab: Notes/Report: [facility] ,SARS-CoV-2 AgNEGATIVENEGATIVE This test has not been FDA cleared [...] terminated or authorization is revoked sooner. Performing Lab:see noteML - [facility] LBProthrombin Time INR Reviewed date:08/01/2024 07:51:30 AM Interpretation: Performing Lab: Notes/Report: [facility] ,Prothrombin Time10.69.0-11.6 secINR1.00 DESIRED INR: 2.0-3.0 CONDITIONS NOT LISTED BELOW 2.5-3.5 FOR PROSTHETIC HEART VALVE REPLACEMENT 2.5-3.5 RECURRENT THROMBOSIS Performing Lab:see noteML - [facility] LBUA RANDOM W or MICROSCOPIC Reviewed date:08/01/2024 07:51:30 AM Interpretation: Performing Lab: Notes/Report: [facility] ,Color UrineLT. YELLOWYELLOWClarity UrineCLEARCLEARSpecific Rawlings Urine1.025 1.005-1.025pH Urine6.05.0-9.0Protein UrineNEGATIVENEG/TRACE mg/dLGlucose Urine UANEGATIVENEGATIVE mg/dLBilirubin UrineNEGATIVENEGATIVEKetones UrineNEGATIVE NEGATIVE mg/dLBlood UrineNEGATIVENEGATIVENitrite UrineNEGATIVENEGATIVE Urobilinogen Urine0.20.2-1.0 EU/dLLeukocyte Esterase UrineTRACENEGATIVEWBC Urine 2-5NONE SEEN #/HPFRBC Urine0-20-2 #/HPFBacteria UrineNONE SEENNONE SEEN #/HPF Mucus UrineNONE SEENNONE SEENSquamous Epithelial Cell UrineFEWNONE/RARE #/LPF Crystals Seen?None SeenNone Seen #/HPFCast Seen?NONE SEENNONE SEEN #/LPFUrine Culture IndicatedNOPerforming Lab:see noteML - [facility] LBPTT Reviewed date:08/01/2024 07:51:30 AM Interpretation: Performing Lab: Notes/Report: [facility] ,Partial Thromboplastin Time30.122.3-36.2 secPerforming Lab:see note - [facility] LBPROF 14(COMP METB) Reviewed date:08/01/2024 07:51:30 AM Interpretation: Performing Lab: Notes/Report: [facility] ,Sjclse063398-571 mmol/LPotassium3.73.5-5.1 mmol/DGjorigdk66612-073 mmol/LCarbon Szuilyj86.521.0-32.0 mmol/LAnion Gap13.2Otnarzd1968-393 mg/dLBlood Urea Nitrogen 23.07.0-18.0 mg/dLCreatinine1.380.55-1.02 mg/dLEstimated GFR ( Biqowrp77 >=60 mL/min/1.73m 2Estimated GFR (Non- Ame47>=60 mL/min/1.73m 2BUN Creatinine Ratio16.7Zlknjym5.88.5-10.1 mg/dLBilirubin Total0.30.2-1.0 mg/dL Aspartate Amino Gpqxqwhlpop5453-03 U/LAlanine Dfnfwatqddeflbxm2655-31 U/L Alkaline Rarefilchxh84444-463 U/LTotal Protein7.46.4-8.2 g/dLAlbumin Level3.5 3.4-5.0 g/dLGlobulin3.9Albumin Globulin Ratio0.9Performing Lab:see noteML - [facility] LBINFLUENZA A AND B AG Reviewed date:08/01/2024 07:51:30 AM Interpretation: Performing Lab: Notes/Report: [facility] ,Influenza Virus A AntigenNegative Negative for Flu A protein antigen. Infection due to Flu A cannot be ruled out. Flu A antigen in the sample may be below the detection limit of the test. Influenza Virus B AntigenNegative Negative for Flu B protein antigen. Infection due to Flu B cannot be ruled out. Flu B antigen in the sample may be below the detection limit of the test. Performing Lab:see noteML - [facility] LBCBC AUTO DIFF Reviewed date:08/01/2024 07:51:30 AM Interpretation: Performing Lab: Notes/Report: [facility] ,White Blood Count9.44.0-11.0 10 3/uLRed Blood Count4.294.20-5.40 10 6/uL Rccpykiuco90.112.0-16.0 g/nGDahzwudtho39.636.0-48.0 %Mean Corpuscular Zcfzhk49.3 81.0-99.0 fLMean Corpuscular Lshakksqze95.226.7-34.0 pgMean Corpuscular HGB Conc 33.129.9-35.2 g/dLRed Cell Distribution Width12.811.0-15.0 %Platelet Eppyq265 150-450 10 3/uLMean Platelet Bulttl01.69.5-13.5 fLNeutrophils Percent Auto51.1 43.0-75.0 %Lymphocytes Percent Auto41.420.5-60.0 %Monocytes Percent Auto5.11.7- 12.0 %Eosinophils Percent Auto1.10.9-7.0 %Basophils Percent Auto1.10.2-2.0 % Immature Granulocytes Pct Auto0.20.0-0.5 %Neutrophils Absolute Auto4.81.4-6.5 10 3/uLLymphocytes Absolute Auto3.91.2-3.8 10 3/uLMonocytes Absolute Auto0.50.3-0.8 10 3/uLEosinophils Absolute Auto0.10.0-0.7 10 3/uLBasophils Absolute Auto0.10.0- 0.1 10 3/uLImmature Granulocytes Abs Auto0.020.00-0.03 10 3/uLPerforming Lab:see noteML - [facility] LBCBC AUTO DIFF Reviewed date:07/14/2024 05:56:16 PM Interpretation: Performing Lab: Notes/Report: [facility] ,White Blood Count24.54.0-11.0 10 3/uLRed Blood Count3.974.20-5.40 10 6/uL Rturnuvwtu22.212.0-16.0 g/dKUtbarmnjvj01.236.0-48.0 %Mean Corpuscular Dtipdj33.1 81.0-99.0 fLMean Corpuscular Tgruficbvf25.226.7-34.0 pgMean Corpuscular HGB Conc 32.729.9-35.2 g/dLRed Cell Distribution Width13.511.0-15.0 %Platelet Notik136 150-450 10 3/uLMean Platelet Tszogw73.59.5-13.5 fLPerforming Lab:see noteML - [facility] LBType and Screen Reviewed date:07/12/2024 10:03:03 AM Interpretation: Performing Lab: Notes/Report: [facility] ,Blood TypeO PositiveAntibody ScreenNEGATIVECBC no Diff (Hemogram) Reviewed date:07/11/2024 09:27:08 PM Interpretation: Performing Lab: Notes/Report: [facility] ,White Blood Count13.14.0-11.0 10 3/uLRed Blood Count3.774.20-5.40 10 6/uL Rdljndsxxb61.612.0-16.0 g/fIUyfrkflzxg47.036.0-48.0 %Mean Corpuscular Rawbpi23.9 81.0-99.0 fLMean Corpuscular Wfdfkaecwp52.126.7-34.0 pgMean Corpuscular HGB Conc 33.129.9-35.2 g/dLRed Cell Distribution Width13.311.0-15.0 %Platelet Rjyhe274 150-450 10 3/uLMean Platelet Cnjlce51.09.5-13.5 fLPerforming Lab:see noteML - [facility] LBDRUG SCREEN RAPID (URINE) Reviewed date:07/11/2024 09:27:27 PM Interpretation: Performing Lab: Notes/Report: [facility] ,Cannabinoid Screen UrineNEGATIVENEGATIVEPhencyclidine Screen UrineNEGATIVE NEGATIVECocaine Screen UrineNEGATIVENEGATIVEMethamphetamines Screen Urine NEGATIVENEGATIVEOpiate Screen UrineNEGATIVENEGATIVEAmphetamine Screen Urine NEGATIVENEGATIVEBenzodiazepines Screen UrineNEGATIVENEGATIVETricyclic Antidepressant UrineNEGATIVENEGATIVEMethadone Screen UrineNEGATIVENEGATIVE Barbiturates Screen UrineNEGATIVENEGATIVEOxycodone Screen UrineNEGATIVENEGATIVE Buprenorphine Screen UrineNEGATIVENEGATIVE DRUG CLASS TEST SYSTEM CUT-OFF CONCENTRATIONS ARE FOLLOWS: AMP (Amphetamine): 500 ng/mL BAR (Barbiturates): 200 ng/mL BZO (Benzodiazepines): 150 ng/mL BUP (Buprenorphine): 10 ng/mL NAA (Cocaine): 150 ng/mL mAMP (Methamphetamine): 500 ng/mL MTD (Methadone): 200 ng/mL OPI (Opiates): 100 ng/mL OXY (Oxycodone): 100 ng/mL PCP (Phencyclidine): 25 ng/mL THC (Cannabinoids): 50 ng/mL TCA (Trycyclic Antidepressants): 300 ng/mL Performing Lab:see noteML - [facility] LBStrep Gp B LALITO Reviewed date:06/26/2024 06:09:25 PM Interpretation: Performing Lab: Notes/Report: [facility] ,Strep Gp B NAASee Below For Report Strep Gp B LALITO Strep Gp B NAANegative Strep Gp B LALITO Strep Gp B NAACenters for Disease Control and Prevention (CDC) and Strep Gp B LALITO Strep Gp B NAAAmerican Congress of Obstetricians and Gynecologists Strep Gp B LALITO Strep Gp B LALITO(ACOG) guidelines for prevention of group B Strep Gp B LALITO Strep Gp B NAAstreptococcal (GBS) disease specify co-collection of Strep Gp B LALITO Strep Gp B NAAa vaginal and rectal swab specimen to maximize Strep Gp B LALITO Strep Gp B NAAsensitivity of GBS detection. Per the CDC and ACOG, Strep Gp B LALITO Strep Gp B NAAswabbing both the lower vagina and rectum Strep Gp B LALITO Strep Gp B NAAsubstantially increases the yield of detection Strep Gp B LALITO Strep Gp B NAAcompared with sampling the vagina alone. Strep Gp B LALITO Strep Gp B NAAPenicillin G, ampicillin, or cefazolin are indicated Strep Gp B LALITO Strep Gp B NAAfor intrapartum prophylaxis of GBS Strep Gp B LALITO Strep Gp B NAAcolonization. Reflex susceptibility testing should be Strep Gp B LALITO Strep Gp B NAAperformed prior to use of clindamycin only on GBS Strep Gp B LALITO Strep Gp B NAAisolates from penicillin-allergic women who are Strep Gp B LALITO Strep Gp B NAAconsidered a high risk for anaphylaxis. Treatment with Strep Gp B LALITO Strep Gp B NAAvancomycin without additional testing is warranted if Strep Gp B LALITO Strep Gp B NAAresistance to clindamycin is noted. Strep Gp B LALITO Strep Gp B NAAPerformed at: CB - [facility] [place] Strep Gp B LALITO Strep Gp B [id number] [place], [place] [id number] Strep Gp B LALITO Strep Gp B NAALab Director: Samson Ibarra PhD, Phone: [phone] Strep Gp B LALITO Performing Lab:see note LC - [facility] LB SEE REPORT - Advertising Clerk Id information not found for OBX-specific box builder legend US OB growth Reviewed date:05/10/2024 04:10:50 PM Interpretation: Performing Lab: Notes/Report: Source Facility: [address] [address] [place] [address] Ultrasound Report Signed Patient: LATHA STEEL MR#: [id number] : 2000 Acct:[id number] Age/Sex: 24 / F ADM Date: 05/10/24 Loc: [facility] Attending Dr: Agata Meza Ordering Physician: Agata Meza Date of Service: 05/10/24 Procedure(s): US OB growth Accession Number(s): [id number] cc: Agata Meza; Jesus Tsang M.D. [address] [address] Patient Name: LATHA STEEL MRN: [id number] date: 2000 Sex: F Assigned Patient Location: [facility] Current Patient Location: [facility] Accession/Order Number: [id number] Exam Date: 05/10/2024 13:59 Report Date: 05/10/2024 [...] Signed By: 05/10/24 1442 DD/ 1440 TD/TT: Nutrition Helper:CT cervical spine wo con Reviewed date:09/03/2024 02:00:54 PM Interpretation: Performing Lab: Notes/Report: Source Facility: [place] [address] CT Scan Report Signed Patient: LATHA STEEL MR#: [id number] : 2000 Acct:[id number] Age/Sex: 24 / F ADM Date: 09/02/24 Loc: CT Attending Dr: Jesus Tsang M.D. Ordering Physician: Jesus Tsang M.D. Date of Service: 09/02/24 Procedure(s): CT cervical spine wo con Accession Number(s): [id number] cc: Jesus Tsang M.D. [place] [address] Patient Name: LATHA STEEL MRN: [id number] date: 2000 Sex: F Assigned Patient Location: CT Current Patient Location: CT Accession/Order Number: [id number] Exam Date: 09/02/2024 08:43 Report Date: 09/02/2024 [...] M.D. Signed By: 09/02/241818 DD/ 15 TD/TT: Nutrition Helper:Type and Screen Reviewed date:04/26/2025 08:31:52 AM Interpretation: Performing Lab: Notes/Report: [facility] ,Blood TypeO PositiveAntibody ScreenNEGATIVEUrine Culture - [facility] Reviewed date:04/17/2025 06:45:50 PM Interpretation: Performing Lab: Notes/Report: [facility] ,Urine Culture - [facility]MCSee Below For Report Urine Culture - [facility] No Growth 2 Days Urine Culture - [facility] U[facility] No Growth 2 Days [facility] - [facility] No Growth 2 Days Urine Culture - [id number] [place] [address] Urine Culture - [facility] No Growth 2 Days Performing Lab:see noteML - [facility] LBPROF CHEM 8 (BAS METB) Reviewed date:04/15/2025 12:47:02 PM Interpretation: Performing Lab: Notes/Report: [facility] ,Akdphl880559-464 mmol/LPotassium3.23.5-5.1 mmol/IQyuetxhq59068-098 mmol/LCarbon Wyescey95.321.0-32.0 mmol/LAnion Gap14.8Ahujhly2158-052 mg/dLBlood Urea Nitrogen 7.07.0-18.0 mg/dLCreatinine0.660.55-1.02 mg/dLEstimated GFR ( Akua>60 >=60 mL/min/1.73m 2Estimated GFR (Non- Deborah>60>=60 mL/min/1.73m 2BUN Creatinine Ratio10.3Vgxmcqv9.08.5-10.1 mg/dLPerforming Lab:see noteML - [facility] LBPREG QUANT HCG Reviewed date:04/15/2025 12:47:02 PM Interpretation: Performing Lab: Notes/Report: [facility] ,HCG Crhobtkjehab27236 5-50 0.2-1 WEEK 50-500 1-2 WEEKS 100-5,000 2-3 WEEKS 500-10,000 3-4 WEEKS 1,000-50,000 4-5 WEEKS 10,000-100,000 5-6 WEEKS 15,000-200,000 6-8 WEEKS 10,000-100,000 2-3 MONTHS Performing Lab:see noteML - [facility] LB Reason For Referral Diagnosis 1 Hives (L50.9) Referral Organization [facility] Referring Provider First Name Kentrell Referring Provider Last Name Sharan Referring Provider Speciality [facility] kristy Referred Provider Ruy Pimentel Referred Provider Specialty Allergy/Immu nology Referral Priority Routine Medications Medication SIG (Take, Route, Frequency, Duration) Notes Start Date End Date Status Meloxicam 15 MG 1 tablet Orally Once a day; Dura tion: 30 days 08/19/2024Not-TakingCeleXA 10 MG1 tablet Orally Once a day; Duration: 30 days 08/19/2024Not-TakingHyoscyamine Sulfate 0.125 MG1-2 tabs SL SL every 4 hrs PRN abd pain5Active Social History Tobacco Use: Social History Observation Description Date Details (start date - stop date) Never Smoker NA - NA Tobacco Use/Smoking Question Answer Notes Patient is a nonsmoker Alcohol Screen (Audit-C) Question Answer Notes Did you have a drink containing alcohol in the p ast year? Yes How often did you have 6 or more drinks on one occasion in the past year?Never (0 point)How many drinks did you have on a typical day when you were drinking in the past year?1 or 2 drinks (0 point)How often did you have a drink containing alcohol in the past year?Monthly (2 points)Uljkae3XdwzjnmhhomxmfXfrwbugsJzakejk Control (Standard) Question Answer Notes Tobacco use: Nonsmoker AUDIT-C (Standard) Question Answer Notes Did you have a drink containing alcohol in the p ast year? 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)ActiveconfirmedProblemLumbar radiculopathy (419821787)Radiculopathy, lumbar region (M54.16)ActiveconfirmedProblemEpistaxis (848318372)Epistaxis (R04.0)ActiveconfirmedProblemHeadache (04984793)Headache (R51)Activeconfirmed ProblemChest pain (02417074)Chest pain (R07.9)ActiveconfirmedProblemFatigue (96892142)Fatigue (R53.83)ActiveconfirmedProblemCervical radiculopathy (40998405)Cervical radiculopathy (M54.12)ActiveconfirmedProblemHypothyroid (44719287)Hypothyroid (E03.9)ActiveconfirmedProblemEczema (77682234)Eczema (L30.9)ActiveconfirmedProblemSyncope (859540296)Syncope (R55)Activeconfirmed ProblemAcute sinusitis (04828458)Acute sinusitis (J01.90)ActiveconfirmedProblem Allergic rhinitis (21666467)Allergic rhinitis (J30.9)ActiveconfirmedProblem Radial styloid tenosynovitis (12839675)De Quervain's tenosynovitis (M65.4)Active confirmedProblemPain in thoracic spine (157563936)Bilateral thoracic back pain (M54.6)ActiveconfirmedProblemSyncope and collapse (130679434)Syncopal episodes (R55)ActiveconfirmedProblemNosebleed (543957755)Nosebleed (R04.0)Activeconfirmed ProblemAcute infective polyneuritis (614315726)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)ActiveconfirmedProblemDerangement of knee (19336588)Internal derangement of knee, right (M23.91)ActiveconfirmedProblemBloody diarrhea (27863727)Bloody diarrhea (R19.7)ActiveconfirmedProblemHyperplasia of tonsils (42291936) Hyperplasia of tonsils (J35.1)ActiveconfirmedProblemMeralgia paresthetica (00944220)Meralgia paresthetica, bilateral lower limbs (G57.13)Activeconfirmed ProblemCyst of meniscus of right knee (602015453406965)Cyst of meniscus of right knee (M23.006)ActiveconfirmedProblemPostural orthostatic tachycardia syndrome (disorder) (857417761)POTS (postural orthostatic tachycardia syndrome) (I49.8) ActiveconfirmedProblemDisease caused by Severe acute respiratory syndrome coronavirus 2 (disorder) (064377458)COVID-19 virus infection (U07.1)Active confirmed Vital Signs Blood pressure diastolic 72 mm Hg 12/16/2024 Gtkdjp20 in12/16/2024lood pressure keieiyiq486 mm Hg12/16/20247056Jqizby957 lbs 12/16/2024BMI27.63 kg/m212/16/2024 Encounters Encounter Location Date Provider Diagnosis [address] [place] [address] 08/19/2024 Kentrell Hoy Headache R51 and Cer vical radiculopathy M54.[address] [address] 12/16/2024 Kentrell Hoy Gastroenteritis K52. 9 and Hives L50.9 [facility] [address] [place] [address] 09/03/2024 Kentrell Hoy [address] [place] [address] 04/15/2025Doug [facility] [place] [address]/13/2025Doug Sharan Assessments Encounter Date Diagnosis (ICD Code) Assessment Notes Treatment Notes Treatment Clinical Notes Section Notes 08/19/2024 Headache (ICD-10 - R51) 5Cervical radiculopathy (ICD-10 - M54.12)12/16/2024Hives (ICD-10 - L50.9)12/16/2024Gastroenteritis (ICD-10 - K52.9)Get plenty of rest. Stay hydrated by sucking on ice chips or taking small sips of water. You can also try drinking clear soda, clear broths or noncaffeinated sports drinks. Stop eating solid foods for a few hours to let your stomach settle. East back into eating by eating bland, yjpw-og-xjyoxe foods like crackers, toast, gelatin, bananas, rice and chicken. Try to avoid foods/substances including dairy products, caffeine, alcohol, nicotine and fatty or highly seasoned foods. Medications such as i buprofen or tylenol can make your stomach more upset, so use sparingly if at all. Also avoid saol-nzf-gqsbxnb anti-diarrheal medications because it can make it harder for your body to eliminate the virus. Plan Of Treatment Pending Test Test Name [...] Coverage Start Date Coverage End Date [employer]OTHMAN [address] [place] [address] [id number] Job Keith Child 3 [employer] [place] MEDICAIDPO [address] [address] [place] [phone] [id number], MadysonSelf - patient is the terepso15 2024 Medical (General) History Medical History History ICD Code Acne, unspecified L70.9 Radiculopathy, lumbar region M54.16 Other specified dermatitis L30.8 Chondromalacia patellae, right knee M22. 41 GBS (Guillain [place] syndrome) G61.0 Chest pain R07.9 Sebaceous cyst [...]
--- OUTSIDE RECORDS SUMMARY | 2025-05-09 12:57 | XMS_ITS | Clinical Summary ---
Author Organization [facility] Address [address] [place] [address] Care Team Providers Care Fleet Service Clerk Name Role Phone Fady Tsang MD Primary Care Provider [phone] Allergies No known active allergies Medications MedicationSigDispense QuantityRefillsLast FilledStart DateEnd DateStatus MV-Min-Fe Fum-FA-DHA ( 1 PO) Take 1 tablet by mouth DailyActive metroNIDAZOLE (Flagyl) 500 MG tablet Indications:BV (bacterial vaginosis)Take 1 tablet (500 mg) by mouth in the morning and 1 tablet (500 mg) before bedtime. Do all this for 7 days. Do not drink alcohol while taking this medication. 14 tablet 5004/10/2025Discontinued Active Problems ProblemNoted DateDiagnosed DateHx of Guillain-[place] vpiwbdxn03/06/2024History of yqihxpuu60/06/2024Hypertrophy of tonsils with hypertrophy of vakhjyeu25/02/2024 Estimated Date of DnndogcfKhtnogneJws67/22/2026Based on Ultrasound, FHR-180 Resolved Problems ProblemNoted DateDiagnosed DateResolved DateHistory of 2019 novel coronavirus disease (COVID-19)5Acute frontal ecnomolgu08/02/2024 5Allergic abaxbomb485Chronic adenotonsillitis PharyngitisUARS (upper airway resistance syndrome) Encounters DateTypeDepartmentCare LjhkBdiawwdltnw92/21/2025 8:30 AM EDTRoutine [facility] [address] [place] [address] Agata Ross PA 18 weeks gestation of ([facility]); Second trimester ([facility]); Well woman exam with routine gynecological exam; Exposure to STD; Need for maternal serum alpha-protein (MSAFP) screening ([facility]); Screening, , for anatomic survey ([facility])5Bamboo flowsheet [facility] [address] [place] [address] Agata Ross PA 04/10/2025 8:50 AM EDTRoutine [facility] [address] [place] [address] Pan Martínez, Second trimester ([facility]); 14 weeks gestation of ([facility])5Bamboo flowsheet [facility] [address] [place] [address] Pan Martínez DO 04/10/20257302Ffpujz70/09/2025Telephone [facility] [address] [place] [address] Mirtha Lindquist LPN 03/17/2025bstract [facility] [address] [place] [address] Pan Martínez, 03/09/2025 1:30 PM EDTInitial [facility] [address] [place] [address] GA: 9w4d03/09/2025 1:00 PM EDTAncillary Procedure [facility] [address] [place] [address] Missed menses; Positive urine test ([facility])08/21/2025Clinisync Result Encounter [facility] Unsolicited Pan Martínez, 03/03/20255518Luszwf01/21/2025Telephone [facility] [address] [place] [address] Cynthia Maya MA from Last 3 Months Family History Medical HistoryRelationNameCommentsNo Known ProblemsBrotherNo Known Problems FatherHeart diseaseMaternal GrandfatherBreast cancerMaternal GrandmotherJackieNo Known ProblemsMotherHeart diseasePaternal GrandfatherDiabetesPaternal GrandmotherTheresaNo Known ProblemsSisterRelationNameStatusCommentsBrotherAlive FatherAliveMaternal GrandfatherMaternal GrandmotherJackieMotherAlivePaternal GrandfatherPaternal GrandmotherTheresaSisterAlive Social History Tobacco UseTypesPacks/DayYears UsedDateSmoking Tobacco: NeverSmokeless Tobacco: Never Tobacco Cessation:Counseling Given: Not Answered Alcohol UseStandard Drinks/WeekCommentsYes4 (1 standard drink = 0.6 oz pure alcohol)Caffeine intake: noneEstimated Date of DeliveryCommentsYes 6Based on Ultrasound, FHR-180Sex and Gender InformationValueDate RecordedSex Assigned at BirthNot on fileLegal NdcFwqolt49/15/2023 8:32 PM EDT Gender IdentityNot on fileSexual OrientationNot on file Last Filed Vital Signs Vital SignReadingTime TakenCommentsBlood Amxlibvh640/7210 8:54 AM EDT Pulse--Temperature--Respiratory Rate--Oxygen Saturation--Inhaled Oxygen Concentration--Lsotxe00.6 kg (171 lb)05/09/2025 8:54 AM UGUNrbmgj448.6 cm (5' 4 )04/21/2023 3:18 PM EDTBody Mass Index29.351 3:18 PM EDT Plan of Treatment DateTypeDepartmentCare Team (Latest Contact Info)Dnxwfjgqdcr96/04/2025 1:00 PM ESTAncillary Procedure [facility] [address] [place] [phone] 06/07/2025 11:20 AM ESTRoutine [facility] [address] [place] [address] Pan Martínez, [address] [place] [address] Procedures Procedure NamePriorityDate/TimeAssociated DiagnosisCommentsPOCT URINALYSIS ICAYUXEUBzlscwn33/21/2025 8:54 AM EDT 18 weeks gestation of ([facility]) POCT URINALYSIS UCPXNIVNEkpftfh56/22/2025 9:09 AM EDT Second trimester ([facility]) HBSAG FAJYTPSphrrrg65/21/2025 4:23 PM EDT RAPID PLASMA REAGIN, VLLLSFgwbvli31/21/2025 4:23 PM EDT HCV ANTIBODY RFX TO QUANT MBFYjncgvt36/21/2025 4:23 PM EDT ALL RUBELLA IGG TJSpedxej39/21/2025 4:23 PM EDT HIV AB/P24 AG WITH BAKDKOXkiodlj39/21/2025 4:23 PM EDT ALL TYPE AND QIVXXKRnvjpar37/21/2025 4:23 PM EDT MLR HEMOGLOBIN L7MYnsbdzr13/21/2025 4:23 PM EDT BOX PXLKLxghuti57/21/2025 4:23 PM EDT ALL CBC WITH AUTO GRUDFjajanj20/21/2025 4:23 PM EDT TBH DRUG SCREEN RAPID (URINE)Jgakwob7903/09/2025 4:00 PM EDT POCT URINALYSIS FFKFXYQFLtnoufn83/21/2025 1:32 PM EDT Missed menses POCT , ZXDPYYhzxcxw74/21/2025 1:32 PM EDT Missed menses US OB AMHRRXQCJBARKcrdura49/21/2025 1:28 PM EDT Missed menses Positive urine test ([facility]) from Last 3 Months Results * POCT urinalysis dipstick manually resulted (05/09/2025 8:54 AM EDT) Only the most recent of3 resultswithin the time period is included. ComponentValueRef RangeTest MethodAnalysis TimePerformed AtPathologist Signature Color, UAYellowClarity, UAClearGlucose, UANegativeNegative - 2000(110) ++++ mg/dLBilirubin, UANegativeNegative - 4(70) +++ mg/dLKetones, UANegativeNegative - 160(16) ++++ mg/dLSpec Grav, UA1.0051 - 1.03Blood, UANegativeNegative - 50 Gabriele/mcLpH, UA7.55 - 9Protein, UANegativeNegative - 2000(20) ++++ mg/dL Urobilinogen, UA1.00.2 - 12 mg/dLLeukocytes, UA1+Negative - 500+++ Alexsandra/mcL Nitrite, UANegativeNegative - PositiveSpecimen (Source)Anatomical Location / LateralityCollection Method / VolumeCollection TimeReceived YwirFcbcx75/21/2025 8:54 AM EDT Narrative Authorizing ProviderResult TypeResult StatusAmy [facility] OF CARE TEST ENTER/EDIT ORDERABLESFinal Result * BOX TEST (03/09/2025 4:23 PM EDT)ComponentValueRef RangeTest MethodAnalysis TimePerformed AtPathologist SignatureBOX TEST SENT UUZOQBTJNOBXEK4LUVRBMYDVWT2 03/09/2025TBHSpecimen (Source)Anatomical Location / LateralityCollection Method / VolumeCollection TimeReceived Time03/09/2025 4:23 PM EDT08/ 4:26 PM EDT Narrative [facility] - 03/09/2025 5:16 PM EDT Authorizing ProviderResult TypeResult StatusCorey Mauricio DOLAB BLOOD ORDERABLES Final ResultPerforming OrganizationAddressty/State/ZIP CodePhone Number [facility] * HBSAG SCREEN (03/09/2025 4:23 PM EDT)ComponentValueRef RangeTest Method Analysis TimePerformed AtPathologist SignatureHBSAG SCREENNegativeNegativeTBH Comment: Performed at: ??[address] ??[id number] Deputy Register Of Deeds: Samson Ibarra PhD, Phone: ??[phone] Specimen (Source)Anatomical Location / LateralityCollection Method / Volume Collection TimeReceived Time03/09/2025 4:23 PM EDT03/09/2025 4:26 PM EDT Narrative [facility] - 03/11/2025 1:09 PM EDT Authorizing ProviderResult TypeResult StatusCorey Mauricio DOLAB BLOOD ORDERABLES Final ResultPerforming OrganizationAddressCity/State/ZIP CodePhone Number [facility] * RAPID PLASMA REAGIN, QUANT (03/09/2025 4:23 PM EDT)ComponentValueRef RangeTest MethodAnalysis TimePerformed AtPathologist SignatureRAPID PLASMA REAGIN, QUANT Non ReactiveNonRea<1:1 titerTBHComment: Please Note: This test does not meet current guidelines for screening and diagnosis of syphilis. This test is intended for following treatment response in patients being treated for syphilis infection. To screen for syphilis infection, a reflex cascade that includes both RPR and a treponema-specific assay should be utilized, such as Treponema pallidum (Syphilis) Screening [place] (610769) or Rapid Plasma Reagin (RPR) Test With Reflex to Quantitative RPR and Confirmatory Treponema pallidum Antibodies (363913). Performed at: ??[facility] [address] ??[id number] Deputy Register Of Deeds: Samson Ibarra PhD, Phone: ??[phone] Specimen (Source)Anatomical Location / LateralityCollection Method / Volume Collection TimeReceived Time03/09/2025 4:23 PM EDT03/09/2025 4:26 PM EDT Narrative [facility] - 03/11/2025 1:09 PM EDT Authorizing ProviderResult TypeResult StatusCorey Mauricio DOLAB BLOOD ORDERABLES Final ResultPerforming OrganizationAddressty/State/ZIP CodePhone Number [facility] * HIV AB/P24 AG WITH REFLEX (03/09/2025 4:23 PM EDT)ComponentValueRef RangeTest MethodAnalysis TimePerformed AtPathologist SignatureHIV AB/P24 AG SCREENNon ReactiveNon ReactiveTBHComment: HIV-1/HIV-2 antibodies and HIV-1 p24 antigen were NOT detected. There is no laboratory evidence of HIV infection. HIV Negative Performed at: ??[facility] [address] ??[id number] Deputy Register Of Deeds: Samson Ibarra PhD, Phone: ??[phone] Specimen (Source)Anatomical Location / LateralityCollection Method / Volume Collection TimeReceived Time03/09/2025 4:23 PM EDT03/09/2025 4:26 PM EDT Narrative [facility] - 03/11/2025 4:07 AM EDT Authorizing ProviderResult TypeResult StatusCorey Mauricio DOLAB BLOOD ORDERABLES Final ResultPerforming OrganizationAddressCity/State/ZIP CodePhone Number [facility] * HCV ANTIBODY RFX TO QUANT PCR (03/09/2025 4:23 PM EDT)ComponentValueRef Range Test MethodAnalysis TimePerformed AtPathologist SignatureHCV ABNon ReactiveNon ReactiveTBHINTERPRETATION:Comment.TBHComment: Not infected with HCV unless early or acute infection is suspected (which may be delayed in an immunocompromised individual), or other evidence exists to indicate HCV infection. Performed at: ??[facility] [address] ??[id number] Deputy Register Of Deeds: Samson Ibarra PhD, Phone: ??[phone] Specimen (Source)Anatomical Location / LateralityCollection Method / Volume Collection TimeReceived Time03/09/2025 4:23 PM EDT03/09/2025 4:26 PM EDT Narrative [facility] - 03/11/2025 8:09 AM EDT Authorizing ProviderResult TypeResult StatusCorey Mauricio DOLAB BLOOD ORDERABLES Final ResultPerforming OrganizationAddressCity/State/ZIP CodePhone Number [facility] * MLR HEMOGLOBIN A1C (03/09/2025 4:23 PM EDT)ComponentValueRef RangeTest Method Analysis TimePerformed AtPathologist SignatureGLYCOHEMOGLOBIN A1C4.84.5 - 6.2 %TBHComment: ADA RECOMMENDED LIMIT 4.0 - 6.0 ADA THERAPEUTIC TARGET < 7.0 ACTION SUGGESTED > 7.0 ESTIMATED AVERAGE NNPZDRU40jj/dLTBHSpecimen (Source)Anatomical Location / LateralityCollection Method / VolumeCollection TimeReceived Time03/09/2025 4:23 PM EDT03/09/2025 4:26 PM EDT Narrative [facility] - 03/09/2025 6:02 PM EDT Authorizing ProviderResult TypeResult StatusCorey Mauricio DOCLINISYNCFinal Result Performing OrganizationAddressCity/State/ZIP CodePhone Number [facility] * ALL TYPE AND SCREEN (03/09/2025 4:23 PM EDT)ComponentValueRef RangeTest Method Analysis TimePerformed AtPathologist SignatureBLOOD TYPEO PositiveTBHANTIBODY SCREENNEGATIVETBHSpecimen (Source)Anatomical Location / LateralityCollection Method / VolumeCollection TimeReceived Time03/09/2025 4:23 PM EDT03/09/2025 4:26 PM EDT Narrative [facility] - 03/09/2025 6:12 PM EDT [facility] , ?? Authorizing ProviderResult TypeResult StatusCorey Mauricio DOCLINISYNCFinal Result Performing OrganizationAddHeritage Valley Health Systemty/State/ZIP CodePhone Number [facility] * ALL RUBELLA IGG AB (03/09/2025 4:23 PM EDT)ComponentValueRef RangeTest Method Analysis TimePerformed AtPathologist SignatureRUBELLA ANTIBODIES, IGG4.47 Immune >0.99 indexTBHComment: Non-immune <0.90 ?Equivocal ??0.90 - 0.99 Immune >0.99 Performed at: ??[facility] [place] [address], [place] ??[id number] Deputy Register Of Deeds: Samson Ibarra PhD, Phone: ??[phone] Specimen (Source)Anatomical Location / LateralityCollection Method / Volume Collection TimeReceived Time03/09/2025 4:23 PM EDT03/09/2025 4:26 PM EDT Narrative [facility] - 03/11/2025 8:09 AM EDT Authorizing ProviderResult TypeResult StatusCorey Mauricio DOCLINISYNCFinal Result Performing OrganizationAddressCity/State/ZIP CodePhone Number [facility] TB * (ABNORMAL) ALL CBC WITH AUTO DIFF (03/09/2025 4:23 PM EDT)ComponentValueRef RangeTest MethodAnalysis TimePerformed AtPathologist SignatureTBH WBC10.14.0 - 11.0 10 3/uLTBHTBH RBC4.594.20 - 5.40 10 6/uLTBHTBH HGB13.512.0 - 16.0 g/dLTBH TBH HCT39.136.0 - 48.0 %TBHTBH MCV85.281.0 - 99.0 fLTBHTBH MCH29.426.7 - 34.0 pgTBHTBH MCHC34.529.9 - 35.2 g/dLTBHTBH RDW12.611.0 - 15.0 %TBHTBH HFZ634314 - 450 10 3/uLTBHTBH MPV11.29.5 - 13.5 fLTBHNEUTROPHILS PERCENT AUTO67.743.0 - 75.0 %TBHLYMPHOCYTES PERCENT AUTO26.020.5 - 60.0 %TBHMONOCYTES PERCENT AUTO5.0 1.7 - 12.0 %TBHTBH EO %0.5(L)0.9 - 7.0 %TBHBASOPHILS PERCENT AUTO0.60.2 - 2.0 %TBHIMMATURE GRANULOCYTES PCT AUTO0.20.0 - 0.5 %TBHNEUTROPHILS ABSOLUTE AUTO 6.9(H)1.4 - 6.5 10 3/uLTBHLYMPHOCYTES ABSOLUTE AUTO2.61.2 - 3.8 10 3/uLTBH MONOCYTES ABSOLUTE AUTO0.50.3 - 0.8 10 3/uLTBHTBH EO #0.10.0 - 0.7 10 3/uLTBH BASOPHILS ABSOLUTE AUTO0.10.0 - 0.1 10 3/uLTBHIMMATURE GRANULOCYTES ABS AUTO 0.020.00 - 0.03 10 3/uLTBHSpecimen (Source)Anatomical Location / Laterality Collection Method / VolumeCollection TimeReceived Time03/09/2025 4:23 PM EDT 03/09/2025 4:26 PM EDT Narrative [facility] - 03/09/2025 4:38 PM EDT Authorizing ProviderResult TypeResult StatusCorey Mauricio DOCLINISYNCFinal Result Performing OrganizationAddressCity/State/ZIP CodePhone Number [facility] * TB DRUG SCREEN RAPID (URINE) (03/09/2025 4:00 PM EDT)ComponentValueRef Range Test MethodAnalysis TimePerformed AtPathologist SignatureCANNABINOID SCREEN URINENEGATIVENEGATIVETBHPHENCYCLIDINE SCREEN URINENEGATIVENEGATIVETBHCOCAINE SCREEN URINENEGATIVENEGATIVETBHMETHAMPHETAMINES SCREEN URINENEGATIVENEGATIVE TBHOPIATE SCREEN URINENEGATIVENEGATIVETBHAMPHETAMINE SCREEN URINENEGATIVE NEGATIVETBHBENZODIAZEPINES SCREEN URINENEGATIVENEGATIVETBHTRICYCLIC ANTIDEPRESSANT URINENEGATIVENEGATIVETBHMETHADONE SCREEN URINENEGATIVENEGATIVE TBHBARBITURATES SCREEN URINENEGATIVENEGATIVETBHOXYCODONE SCREEN URINENEGATIVE NEGATIVETBHBUPRENORPHINE SCREEN URINENEGATIVENEGATIVETBHComment: DRUG CLASS TEST SYSTEM CUT-OFF CONCENTRATIONS ARE FOLLOWS: AMP (Amphetamine): 500 ng/mL BAR (Barbiturates): 200 ng/mL BZO (Benzodiazepines): 150 ng/mL BUP (Buprenorphine): 10 ng/mL NAA (Cocaine): 150 ng/mL mAMP (Methamphetamine): 500 ng/mL MTD (Methadone): 200 ng/mL OPI (Opiates): 100 ng/mL OXY (Oxycodone): 100 ng/mL PCP (Phencyclidine): 25 ng/mL THC (Cannabinoids): 50 ng/mL TCA (Trycyclic Antidepressants): 300 ng/mL Specimen (Source)Anatomical Location / LateralityCollection Method / Volume Collection TimeReceived Time03/09/2025 4:00 PM EDT03/09/2025 4:28 PM EDT Narrative [facility] - 03/09/2025 6:00 PM EDT Authorizing ProviderResult TypeResult StatusCorey Mauricio DOCLINISYNCFinal Result Performing OrganizationAddressCity/State/ZIP CodePhone Number [facility] * (ABNORMAL) POCT , urine manually resulted (03/09/2025 1:32 PM EDT) ComponentValueRef RangeTest MethodAnalysis TimePerformed AtPathologist SignaturePreg Test, UrPositiveNegativeSpecimen (Source)Anatomical Location / LateralityCollection Method / VolumeCollection TimeReceived TimeUrine 03/09/2025 1:32 PM EDT Narrative Authorizing ProviderResult TypeResult StatusCorey Mauricio DOPOINT OF CARE TEST ENTER/EDIT ORDERABLESFinal Result * US OB transvaginal (03/09/2025 1:28 PM EDT)Anatomical RegionLateralityModality BodyUltrasoundSpecimen (Source)Anatomical Location / LateralityCollection Method / VolumeCollection TimeReceived Time03/12/2025 8:22 AM EDT Narrative 03/12/2025 8:22 AM EDT EXAM: US OB TRANSVAGINAL HISTORY: ??Dating, history of stillbirth. ??LMP unknown. COMPARISON: ?? None available. TECHNIQUE: Two-dimensional transvaginal grayscale ultrasound imaging of the pelvis was performed. Color Doppler evaluation of the ovaries was also performed. FINDINGS: The uterus demonstrates a normal homogeneous echotexture. ??The cervix measures 4.0 cm in length and the cervical os is closed. The right ovary measures 3.9 x 2.6 x 2.7 cm and demonstrates a normal echotexture. There is normal color Doppler flow. ??There is a presumed corpus luteal cyst. The [...] 9 weeks 4 days (+/- 6 days). ??DEN by today's ultrasound is 10/08/2025. 2. Normal color Doppler evaluation of the bilateral ovaries. Interpreted by: Electronically signed by CLAUDINE BRYANT II, ?? , PHD at 12-Mar-2025 08:20:08 AM [facility] Procedure Note Claudine Bryant MD - 03/12/2025 EXAM: US OB TRANSVAGINAL [...] signed by CLAUDINE BRYANT II, MD, PHD [id number] 08:20:08 AM [facility] Authorizing ProviderResult TypeResult StatusCorey Mauricio DOIMG OB US PROCEDURES Final Result from Last 3 Months Insurance Care Teams Team MemberRelationshipSpecialtyStart Date Fady Tsang MD [address] [place] [phone] PCP - GeneralFamily Nofuegoy60/3/23
--- OUTSIDE RECORDS SUMMARY | 2025-05-09 12:58 | XMS_ITS | CCD ---
Author Organization [facility] Providers Care Venture [employer]ist Name Role Phone MARKER ., DR STINSON [...] Unavailable Jesus Tsang MD Primary Care Provider Jesus Tsang MD Primary Care Provider [phone] Jesus Tsang MD Primary Care Provider [phone] LEO MARTÍNEZY Attending Unavailable ADAN PIMENTEL Attending Unavailable MAURICIO, ROOSEVELT Attending Unavailable SUSANA, AGATA Attending Unavailable MAURICIO, ROOSEVELT Attending Unavailable SUSANA, AGATA Attending Unavailable SUSANA, AGATA Attending Unavailable MAURICIO, ROOSEVELT Attending Unavailable MAURICIO, ROOSEVELT Attending Unavailable MAURICIO, ROOSEVELT Attending Unavailable MAURICIO, ROOSEVELT Attending Unavailable SUSANA, AGATA Attending Unavailable Maxx Chan MD Attending Provider Maxx Chan Attending Unavailable Maxx Chan Admitting Unavailable Mauricio, Roosevelt Admitting Unavailable Mauricio, Roosevelt Attending Unavailable Mauricio, Roosevelt Admitting Unavailable Jesus Tsang Primary Care Unavailable Mauricio, Roosevelt Attending Unavailable Jesus Tsang MD Primary Care Provider [phone] Medications Current Medications MedicationDrug Class(es)DatesSig (Normalized)Sig (Original)metroNIDAZOLE 500 mg oral tablet (2 sources)Nitroimidazole AntimicrobialStart: 03-28-2025 End: 09-61-6113npht 1 tablet by mouth in the morningmetroNIDAZOLE (Flagyl) 500 MG tablet Indications: BV (bacterial vaginosis) Take 1 tablet (500 mg) by mouth in the morning and 1 tablet (500 mg) before bedtime. Do all this for 7 days. Do not drink alcohol while taking this medication. 14 tablet 03/28/2025 04/10/2025 DiscontinuedPrenatal MV-Min-Fe Fum-FA-DHA ( 1 PO) (8 sources) MV-Min-Fe Fum-FA-DHA ( 1 PO) Take 1 tablet by mouth Daily Active Completed/Discontinued Medications MedicationDrug Class(es)DatesSig (Normalized)Sig (Original)amoxicillin 500 mg oral capsule (4 sources)Penicillin-class AntibacterialStart: 03-01-2024 End: 39-89-7410meuj 1 capsule by mouth in the morningamoxicillin (Amoxil) 500 MG capsule Take 500 mg by mouth in the morning and 500 mg before bedtime. 0 03/01/2024 03/30/2024 Discontinuednitrofurantoin, macrocrystals 25 mg / nitrofurantoin, monohydrate 75 mg oral capsule (2 sources)Nitrofuran AntibacterialStart: 03-22-2024 End: 97-28-6857xhjd 1 capsule by mouth in the morningnitrofurantoin, macrocrystal-monohydrate, (Macrobid) 100 MG capsule Indications: UTI symptoms Take 1 capsule (100 mg) by mouth in the morning and 1 capsule (100 mg) before bedtime. Do all this for 7 days. 14 capsule 03/22/2024 03/30/2024 Discontinued omeprazole 20 mg delayed release oral capsule (20 sources)Proton Pump InhibitorStart: 03-30-2024 End: 18-91-2122ngtr 1 capsule by mouth before mealtimeomeprazole (PriLOSEC) [address] capsule Indications: Gastroesophageal Reflux Disease , Heartburn Take 1 capsule (20 mg) by mouth in the morning. Take before meals. Do not crush or chew.. 30 capsule 3 03/30/2024 06/22/2024 Discontinued Problems Active Problems Problem ClassificationProblemDateDocumented DateEpisodic/ChronicAcute and chronic tonsillitis (20 sources)Chronic adenotonsillitis; Translations: [Chronic tonsillitis and adenoiditis]Onset: 11-19-2023 Resolved: 397475-11-5565JvgtjotBsifwvmm reactions (2 sources)Chronic idiopathic urticaria; Translations: [Idiopathic urticaria] 48-50-8641CeotsntrRgnvjqz dysrhythmias (4 sources)Palpitations; Translations: [PALPITATIONS]Onset: 73-87-1413Xtleqifg Deficiency and other anemia (1 source)Anemia, unspecified; Translations: [ANEMIA UNSPECIFIED]Onset: 42-47-6872YbvnhbafBbldwbyf mellitus without complication (1 source)Other abnormal glucose; Translations: [OTHER ABNORMAL GLUCOSE]Onset: 45-14-3013LxmiclfyIegndkutdkzqp and screening for infectious disease (2 sources)Exposure to sexually transmissible disorder; Translations: [Contact with and (suspected) exposure to infections with a predominantly sexual mode of transmission]96-45-3440TgwxrlkkEtfxbrytl disorders (1 source)Missed period; Translations: [Irregular menstruation, unspecified] 52-76-4897KomtffcSmhb disorders (1 source)Major depressive disorder, single episode, unspecified; Translations: [RAMONITA DEPRESS D/O SINGLE EPIS UNS]Onset: 59-85-7729OwjrvhxEkpwutewuse chest pain (4 sources)Chest pain, unspecified; Translations: [CHEST PAIN UNSPECIFIED]Onset: 90-82-0310HyxejjsvGbtjq aftercare (2 sources)Surgical follow-up; Translations: [Encounter for follow-up examination after completed treatment for conditions other than malignant neoplasm]25-25-2354IoufvkpyHytyy complications of (2 sources) size does not accord with dates; Translations: [Uterine size- date discrepancy, unspecified trimester]57-60-2636LcekxcheQxlah and delivery including normal (20 sources)Third trimester ; Translations: [Encounter for supervision of normal , unspecified, third trimester]83-40-5710TfusypfrDalda screening for suspected conditions (not mental disorders or infectious disease) (6 sources)Patient encounter status; Translations: [Encounter for screening for diabetes mellitus]31-72-2214UewlufdnVanyq upper respiratory infections (1 source)Chronic sinusitis, unspecified; Translations: [CHRONIC SINUSITIS UNSPECIFIED]Onset: 20-84-5175WufuldsQscmskfm codes; unclassified (2 sources)Gestation period, 28 weeks; Translations: [28 weeks gestation of ]14-83-5159KhhutbagAbglannf codes; unclassified (2 sources)Gestation period, 30 weeks; Translations: [30 weeks gestation of ]70-46-4458UfqjbmmfClikjegs codes; unclassified (4 sources)Gestation period, 34 weeks; Translations: [34 weeks gestation of ]95-64-2153WqoyfhsvOxcunafk codes; unclassified (2 sources)Gestation period, 35 weeks; Translations: [35 weeks gestation of ]95-33-6656FrggzomzXrtzdejr codes; unclassified (2 sources)Gestation period, 36 weeks; Translations: [36 weeks gestation of ]63-01-1908LyxilvyzWorfgxlb codes; unclassified (2 sources)Gestation period, 37 weeks; Translations: [37 weeks gestation of ]33-99-4128NjaxepugPqqdabfz codes; unclassified (2 sources)Gestation period, 38 weeks; Translations: [38 weeks gestation of ]77-33-9458IqshyjkpHojnzmpi codes; unclassified (2 sources)Gestation period, 14 weeks; Translations: [14 weeks gestation of ]40-78-6983LvacvrabBvbfhjsn codes; unclassified (2 sources)Gestation period, 18 weeks; Translations: [18 weeks gestation of ]05-81-9864Ftgzlrby Past or Other Problems Problem ClassificationProblemDateDocumented DateEpisodic/ChronicAbdominal pain (1 source)Left upper quadrant pain; Translations: [LEFT UPPER QUADRANT PAIN] Onset: 88-28-6446SvxgriwqEwbknb and vomiting (4 sources)Nausea; Translations: [Nausea with vomiting, unspecified]Onset: 52-95-5582QmqoxryoAllgn complications of (2 sources)Gastroesophageal reflux disease in ; Translations: [Diseases of the digestive system complicating , unspecified trimester] 77-14-5893EjktoilxQdrgq infections; including parasitic (20 sources)History of herpes zoster; Translations: [Personal history of other infectious and parasitic diseases]Onset: 762865-11-2381PqafmxmkBnvvh infections; including parasitic (20 sources)Personal history of other infectious and parasitic diseases; Translations: [History of 2019 novel coronavirus disease (COVID-19)]Onset: 11-23-2023 Resolved: 065818-71-2096OamwdwbeXkmbj nervous system disorders (20 sources)History of Guillain Rolette syndrome; Translations: [Personal history of other diseases of the nervous system and sense organs]Onset: 11-23-2023 56-32-1903UkhsdfdwTunhs nutritional; endocrine; and metabolic disorders (1 source)Abnormal weight loss; Translations: [ABNORMAL WEIGHT LOSS]Onset: 12-43-2303EuddbzuyHxrzx upper respiratory disease (20 sources)Allergic rhinitis; Translations: [Allergic rhinitis, unspecified] Onset: 11-19-2023 Resolved: 362562-47-2905SkgwxbtWakqi upper respiratory disease (3 sources)Unspecified disorder of nose and nasal sinuses; Translations: [UNS DISORDER NOSE AND NASAL SINUSES]Onset: 61-98-8930VvonxlpbIlfzm upper respiratory infections (20 sources)Acute frontal sinusitis; Translations: [Acute frontal sinusitis, unspecified]Onset: 11-19-2023 Resolved: 116093-17-9782TzzooygmKyqdqhbg codes; unclassified (20 sources)Upper airway resistance syndrome; Translations: [Other sleep disorders]Onset: 11-19-2023 Resolved: 687854-15-9569UjjgxotNiepavug codes; unclassified (2 sources)Gestation period, 24 weeks; Translations: [24 weeks gestation of ]15-50-4577Pyscqctf Results Test NameValueInterpretationReference RangeFacilityUrinalysis macro (dipstick) panel (U)on 93-54-9084Rxovsfanf, UANegativeNegative - 4(70) +++ mg/dLNOMS HealthcareBlood, UANegativeNegative - 50 Gabriele/mcLNOMS HealthcareClarity, UAClear NOMS HealthcareColor, UAYellowNOMS HealthcareGlucose, UANegativeNegative - 1999(110) ++++ mg/dLNOMS HealthcareInterpretation and review of laboratory resultsNormalNOMS HealthcareKetones, UANegativeNegative - 160(16) ++++ mg/dLNOMS HealthcareLeukocytes, UA1+Negative - 500+++ Alexsandra/mcLNOMS HealthcareNitrite, UA NegativeNegative - PositiveNOMS HealthcarepH, UA7.55 - 9NOMS HealthcareProtein, UANegativeNegative - 1999(20) ++++ mg/dLNOMS HealthcareSpec Grav, UA1.0051 - 1.03NOMS HealthcareUrobilinogen, UA1.00.2 - 12 mg/dLNOMS HealthcareNOMS HealthcareUrine Cultureon 42-03-8757Mtkocitf identified Cx Nom (U)No Growth 2 Days PERFORMED BY: [facility] [address] [place] [address] PATHOLOGIST LANDSCAPING MANAGER ASHLI GONZALEZ M.D.NormalBartow Regional Medical Center Physician GroupComment on above: Performed By: #### CUU #### [facility] [address] [place] [address] USAUrinalysis macro (dipstick) panel (U)on 04-10-2025 Bilirubin, UANegativeNegative - 4(70) +++ mg/dLNOMS HealthcareBlood, UANegative Negative - 50 Gabriele/mcLNOMS HealthcareClarity, UAClearNOMS HealthcareColor, UA YellowNOMS HealthcareGlucose, UANegativeNegative - 1999(110) ++++ mg/dLNOMS HealthcareInterpretation and review of laboratory resultsNormalNOMS Healthcare Ketones, UANegativeNegative - 160(16) ++++ mg/dLNOMS HealthcareLeukocytes, UA NegativeNegative - 500+++ Alexsandra/mcLNOMS HealthcareNitrite, UANegativeNegative - PositiveNOMS HealthcarepH, UA65 - 9NOMS HealthcareProtein, UANegativeNegative - 2000(20) ++++ mg/dLNOMS HealthcareSpec Grav, UA1.0151 - 1.03NOMS Healthcare Urobilinogen, UA0.20.2 - 12 mg/dLWilson Medical CenterALL CBC WITH AUTO DIFFon 33-72-7609CDHQQXKLN ABSOLUTE AUTO0.1NOMS [facility] CampusBasophils/100 WBC (Bld)0.6 %0.2 - 2.0 %[facility] HospitalEosinophils/100 WBC (Bld)0.5 %Low0.9 - 7.0 % [facility] HospitalErythrocyte distribution width (RBC) [Ratio]12.6 %11.0 - 15.0 % [facility] HospitalHematocrit (Bld) [Volume fraction]39.1 %36.0 - 48.0 %[facility] HospitalHemoglobin (Bld) [Mass/Vol]13.5 g/dL12.0 - 16.0 g/dLEastern [facility] Hospital IMMATURE GRANULOCYTES ABS AUTO0.02NOSt. Louis Behavioral Medicine InstituteImmature granulocytes/100 WBC (Bld)0.2 %0.0 - 0.5 %[facility] HospitalInterpretation and review of laboratory resultsAbCorewell Health Big Rapids HospitalLYMPHOCYTES ABSOLUTE AUTO2.6NOSt. Louis Behavioral Medicine Institute Lymphocytes/100 WBC (Bld)26 %20.5 - 60.0 %[facility] HospitalH (RBC) [Entitic mass]29.4 pg26.7 - 34.0 pgSSM Health Cardinal Glennon Children's HospitalHC (RBC) [Mass/Vol]34.5 g/dL29.9 - 35.2 g/dLSSM Health Cardinal Glennon Children's HospitalV (RBC) [Entitic vol]85.2 fL81.0 - 99.0 fLEastern Missouri State HospitalMONOCYTES ABSOLUTE AUTO0.5E[facility] HospitalMonocytes/100 WBC (Bld)5 %1.7 - 12.0 %[facility] HospitalNEUTROPHILS ABSOLUTE AUTO6.9HighEastern Missouri State Hospital Neutrophils/100 WBC (Bld)67.7 %43.0 - 75.0 %[facility] HospitalPlatelet mean volume (Bld) [Entitic vol]11.2 fL9.5 - 13.5 fLEastern Missouri State HospitalTB EO #0.1NMineral Area Regional Medical Center TB VBX105TTKDLake Regional Health System RBC4.59NOLake Regional Health System WBC10.1NMineral Area Regional Medical Center CLINISYNCEastern Missouri State HospitalHCG ( test) Ql (U)on 65-44-3977Bincfwcqgfylrm and review of laboratory resultsAbnormalNOMS HealthcarePreg Test, UrPositive NegativeNOMS HealthcareNOMS HealthcareUS OB TRANSVAGINALon 62-53-7036JJ OB TRANSVAGINALEXAM: US OB TRANSVAGINAL HISTORY: Dating, history of [...] II, MD, PHD at 12-Mar-2025 08:20:08 AM [facility]iologyNormalNot AvailableComment on above:Order Comment: US OB TRANSVAGINAL No LMP recorded.Urinalysis macro (dipstick) panel (U)on 87-66-8375Jgmybzhur, UA NegativeNegative - 4(70) +++ mg/dLNOMS HealthcareBlood, UANegativeNegative - 50 Gabriele/mcLNOMS HealthcareClarity, UAClearNOMS HealthcareColor, UAYellowNOMS HealthcareGlucose, UANegativeNegative - 2000(110) ++++ mg/dLNOMS Healthcare Interpretation and review of laboratory resultsAbnormalNOMS HealthcareKetones, UANegativeNegative - 160(16) ++++ mg/dLEastern Missouri State HospitalLeukocytes, UAPositive Negative - 500+++ Alexsandra/mcLNOID HealthcareNitrite, UANegativeNegative - Positive NOMS HealthcarepH, UA65 - 9NOMS HealthcareProtein, UAPositiveNegative - 2000(20) ++++ mg/dLALTA VIEW HOSPITAL HealthcareSpec Grav, UA1.031 - 1.03NOID HealthcareUrobilinogen, UA1.00.2 - 12 mg/dLWilson Medical CenterTBH PREG QUANT HCGon 02-02-2025 HCG CLKGFMGOWBSV551bTR/mLNOMS HealthcareComment on above:5-50 0.2-1 WEEK 50-500 1-2 WEEKS 100-5,000 2-3 WEEKS 500-10,000 3-4 WEEKS 1,000-50,000 4-5 WEEKS 10,000-100,000 5-6 WEEKS 15,000-200,000 6-8 WEEKS 10,000-100,000 2-3 MONTHS CLINISYNCEastern Missouri State HospitalALL CBC WITH AUTO DIFFon 00-91-4947Aoxfcgdlzhr distribution width (RBC) [Ratio]13.5 %11.0 - 15.0 %[facility] HospitalHematocrit (Bld) [Volume fraction]34.2 %Low36.0 - 48.0 %[facility] HospitalHemoglobin (Bld) [Mass/Vol]11.2 g/dLLow12.0 - 16.0 g/dLEastern Missouri State HospitalInterpretation and review of laboratory resultsAbnormalJefferson Memorial Hospital (RBC) [Entitic mass]28.2 pg26.7 - 34.0 pgSSM Health Cardinal Glennon Children's HospitalHC (RBC) [Mass/Vol]32.7 g/dL29.9 - 35.2 g/dLSSM Health Cardinal Glennon Children's HospitalV (RBC) [Entitic vol]86.1 fL81.0 - 99.0 fLEastern Missouri State HospitalPlatelet mean volume (Bld) [Entitic vol]11.5 fL9.5 - 13.5 fLDoctors Hospital of Springfield [id number] Regional Health System RBC3.97LowDoctors Hospital of Springfield WBC24.5HighALTA VIEW HOSPITAL HealthcareCLINISYNC [facility] HealthcareFetaldex / Kleihauer Betkeon 58-75-3011Alweaymrd Betke Ratio 0.0020 RatioNormalThe Levine [facility]'S Hospital Physician GroupComment on above:Result Comment: PERFORMED BY: [facility] [place] [address] PATHOLOGIST LANDSCAPING MANAGER DANICA Milner 07-12-2024 Specimen: [id number] Received: 07/14/24 Status: YANNA Beard Num: [id number] Spec Type: Surgical Subm Dr: Roosevelt Martínez Tissues: A Placenta - 3rd Trimester (Greater than 28 weeks) (PLACENTA) Procedures: AFRICA/Gunner Pantoja/Smaanta Ibarra Age/ Patient Sex Location Account Attending Physician Latha Cuevas / LABELL [id number] Roosevelt Martínez SPEC NUM: [id number] RECD: 07/14/24 STATUS: YANNA MONKJordan NUM: [id number] YOUNG: 07/12/24- SUBM DR: Roosevelt Martínez ENTERED: 07/14/[address] [facility] [address]: Glenda,Lab SPEC TYPE: Surgical DEPT: DORA ANDERS ENTERED BY: [id number] RECV BY: [id number] ORDERED: HE/3, Gross/Micro L5 ORDERED: HE/3, Gross/Micro [...] name, and date of : Single MEMBRANES: Specimen: [id number] Received: 07/14/24 Status: YESENIADelia Beard Num: [id number] Spec Type: Surgical Subm Dr: Roosevelt Martínez Tissues: A Placenta - 3rd Trimester (Greater than 28 weeks) (PLACENTA) Procedures: Neli WAGNER L5 Patient: Latha Cuevas [id number] (Continued) Specimen: [id number] Received: 07/14/24 (Continued) Gross Description (Continued) Signed (signature on file) Alfonso Cali MD 07/18/24 1754 Specimen: [id number] Received: 07/14/24 Status: YANNA Beard Num: [id number] Spec Type: Surgical Subm Dr: Roosevelt Martínez Tissues: A Placenta - 3rd Trimester (Greater than 28 weeks) (PLACENTA) Procedures: Neli WAGNER L5 Patient: Latha Cuevas [id number] (Continued) Specimen: [id number] Received: 07/14/24-1325 (Continued) Gross Description (Continued) Placenta [...] Rolled membrane, two sections of cord A2-A3 Ambulance Driver sections of placenta (3, , VC76-0213 A) JG Microscopic Description Microscopic examinations are performed supporting the above interpretation CPT Codes 10537 Specimen: [id number] Received: 07/14/24-1325 Status: YANNA Beard Num: [id number] Spec Type: Surgical Subm Dr: Roosevelt Martínez Tissues: A Placenta - 3rd Trimester (Greater (more content not included)... NormalFranklin County Memorial Hospital CBC WITH PLATELET NO DIFFERENTIALon 69-28-8818Fhwzugucjkf distribution width (RBC) [Ratio]13.3 %11.0 - 15.0 %[facility] HospitalHematocrit (Bld) [Volume fraction]32 %Low36.0 - 48.0 %[facility] Hemoglobin (Bld) [Mass/Vol]10.6 g/dLLow12.0 - 16.0 g/dLEastern Missouri State Hospital Interpretation and review of laboratory resultsAbnormalSSM Health Cardinal Glennon Children's HospitalH (RBC) [Entitic mass]28.1 pg26.7 - 34.0 pgSSM Health Cardinal Glennon Children's HospitalHC (RBC) [Mass/Vol]33.1 g/dL 29.9 - 35.2 g/dLSSM Health Cardinal Glennon Children's HospitalV (RBC) [Entitic vol]84.9 fL81.0 - 99.0 fLEastern Missouri State HospitalPlatelet mean volume (Bld) [Entitic vol]12 fL9.5 - 13.5 fLDoctors Hospital of Springfield JJC479DVONLake Regional Health System RBC3.77LowDoctors Hospital of Springfield WBC13.1High [facility] HospitalCLINISYNCNOMS HealthcareUrinalysis macro (dipstick) panel (U)on 47-10-4908Lsdbrkdye, UANegativeNegative - 4(70) +++ mg/dLALTA VIEW HOSPITAL HealthcareBlood, UANegativeNegative - 50 Gabriele/mcLNOID HealthcareClarity, UAClearNOID Healthcare Color, UAYellowNOMS HealthcareGlucose, UANegativeNegative - 2000(110) ++++ mg/dL NOMS HealthcareInterpretation and review of laboratory resultsAbnormalNOMS HealthcareKetones, UANegativeNegative - 160(16) ++++ mg/dLNOMS Healthcare Leukocytes, UANegativeNegative - 500+++ Alexsandra/mcLNOMS HealthcareNitrite, UA NegativeNegative - PositiveNOMS HealthcarepH, UA6.55 - 9NOMS HealthcareProtein, UANegativeNegative - 2000(20) ++++ mg/dLNOMS HealthcareSpec Grav, UA1.021 - 1.03 NOMS HealthcareUrobilinogen, UA1.00.2 - 12 mg/dLNOMS HealthcareNOMS Healthcare Urinalysis macro (dipstick) panel (U)Ordered By: Amarilis Oden on 06-22-2024 Bilirubin, UANegativeNegative - 4(70) +++ mg/dLNOMS HealthcareBlood, UAPositive Negative - 50 Gabriele/mcLNOMS HealthcareComment on above:trace-intactClarity, UA ClearNOMS HealthcareColor, UAYellowNOMS HealthcareGlucose, UANegativeNegative - 1999(110) ++++ mg/dLNOMS HealthcareInterpretation and review of laboratory resultsAbnormalNOMS HealthcareKetones, UANegativeNegative - 160(16) ++++ mg/dL NOMS HealthcareLeukocytes, UAPositiveNegative - 500+++ Alexsandra/mcLNOMS Healthcare Comment on above:largeNitrite, UANegativeNegative - PositiveNOMS HealthcarepH, UA65 - 9NOMS HealthcareProtein, UANegativeNegative - 2000(20) ++++ mg/dLNOMS HealthcareSpec Grav, UA1.0251 - 1.03NOID HealthcareUrobilinogen, UA0.20.2 - 12 mg/dLNOMS HealthcareNOID HealthcareUrinalysis macro (dipstick) panel (U)on 70-08-5471Srmvxvvfk, UANegativeNegative - 4(70) +++ mg/dLNOMS HealthcareBlood, UAPositiveNegative - 50 Gabriele/mcLNOMS HealthcareComment on above:traceClarity, UA ClearNOMS HealthcareColor, UAYellowNOMS HealthcareGlucose, UANegativeNegative - 2000(110) ++++ mg/dLNOMS HealthcareInterpretation and review of laboratory resultsAbnormalNOMS HealthcareKetones, UANegativeNegative - 160(16) ++++ mg/dL NOMS HealthcareLeukocytes, UATraceNegative - 500+++ Alexsandra/mcLNOMS Healthcare Nitrite, UANegativeNegative - PositiveNOMS HealthcarepH, UA6.55 - 9NOMS HealthcareProtein, UATraceNegative - 2000(20) ++++ mg/dLNOMS HealthcareSpec Grav, UA1.0251 - 1.03NOMS HealthcareUrobilinogen, UA1.00.2 - 12 mg/dLNOMS HealthcareNOMS HealthcareUrinalysis macro (dipstick) panel (U)on 06-07-2024 Bilirubin, UANegativeNegative - 4(70) +++ mg/dLNOMS HealthcareBlood, UANegative Negative - 50 Gabriele/mcLNOMS HealthcareClarity, UAClearNOMS HealthcareColor, UA YellowNOMS HealthcareGlucose, UANegativeNegative - 1999(110) ++++ mg/dLNOMS HealthcareInterpretation and review of laboratory resultsAbnormalALTA VIEW [facility]OSPITAL Healthcare Ketones, UAPositiveNegative - 160(16) ++++ mg/dLNOMS HealthcareComment on above: traceLeukocytes, UANegativeNegative - 500+++ Alexsandra/mcLNOMS HealthcareNitrite, UA NegativeNegative - PositiveNOMS HealthcarepH, UA75 - 9NOMS HealthcareProtein, UA NegativeNegative - 2000(20) ++++ mg/dLNOMS HealthcareSpec Grav, UA1.0251 - 1.03 NOMS HealthcareUrobilinogen, UA0.20.2 - 12 mg/dLNOMS [facility] CampusNOMS Healthcare Urinalysis macro (dipstick) panel (U)on 02-36-7558Fatlfwypw, UANegativeNegative - 4(70) +++ mg/dLNOMS HealthcareBlood, UAPositiveNegative - 50 Gabriele/mcLNOMS HealthcareComment on above:traceClarity, UAClearNOMS HealthcareColor, UAYellow NOMS HealthcareGlucose, UANegativeNegative - 1999(110) ++++ mg/dLNOMS Healthcare Interpretation and review of laboratory resultsAbnormalNOMS HealthcareKetones, UANegativeNegative - 160(16) ++++ mg/dLNOMS HealthcareLeukocytes, UAPositive Negative - 500+++ Alexsandra/mcLNOMS HealthcareComment on above:smallNitrite, UA NegativeNegative - PositiveNOMS HealthcarepH, UA75 - 9NOMS HealthcareProtein, UA NegativeNegative - 2000(20) ++++ mg/dLNOMS HealthcareSpec Grav, UA1.021 - 1.03 NOMS HealthcareUrobilinogen, UA0.20.2 - 12 mg/dLNOMS HealthcareNOMS Healthcare Urinalysis macro (dipstick) panel (U)on 89-66-4725Reezxxnmn, UANegativeNegative - 4(70) +++ mg/dLNOMS HealthcareBlood, UAPositiveNegative - 50 Gabriele/mcLNOMS HealthcareComment on above:trace-intactClarity, UAClearNOMS HealthcareColor, UA YellowNOMS HealthcareGlucose, UANegativeNegative - 1999(110) ++++ mg/dLNOMS HealthcareInterpretation and review of laboratory resultsAbnormalNOID Healthcare Ketones, UAPositiveNegative - 160(16) ++++ mg/dLNOMS HealthcareComment on above: 15Leukocytes, UANegativeNegative - 500+++ Alexsandra/mcLNOMS HealthcareNitrite, UA NegativeNegative - PositiveNOMS HealthcarepH, UA75 - 9NOMS HealthcareProtein, UA NegativeNegative - 2000(20) ++++ mg/dLNOMS HealthcareSpec Grav, UA1.0251 - 1.03 NOMS HealthcareUrobilinogen, UA0.20.2 - 12 mg/dLNOMS HealthcareNOMS Healthcare Urinalysis macro (dipstick) panel (U)on 73-20-0762Kpocmqrps, UAPositiveNegative - 4(70) +++ mg/dLNOMS HealthcareComment on above:smallBlood, UAPositiveNegative - 50 Gabriele/mcLNOMS HealthcareComment on above:largeClarity, UAClearNOMS Healthcare Color, UAAmberNOMS HealthcareGlucose, UANegativeNegative - 2000(110) ++++ mg/dL NOMS HealthcareInterpretation and review of laboratory resultsAbnormalNOMS HealthcareKetones, UAPositiveNegative - 160(16) ++++ mg/dLNOID HealthcareComment on above:40 mgLeukocytes, UAPositiveNegative - 500+++ Alexsandra/mcLNOID Healthcare Comment on above:smallNitrite, UANegativeNegative - PositiveNOID HealthcarepH, UA5.55 - 9NOMS HealthcareProtein, UAPositiveNegative - 2000(20) ++++ mg/dLNOID HealthcareComment on above:30 mgSpec Grav, UA1.0301 - 1.03NOID Healthcare Urobilinogen, UA1.00.2 - 12 mg/dLNOI-70 [facility] HealthcareALL CBC WITH AUTO DIFFon 70-30-3824FIQVZUMNS ABSOLUTE AUTO0.0NOSt. Louis Behavioral Medicine InstituteBasophils/100 WBC (Bld)0.4 %0.2 - 2.0 %NOMSaint Joseph Hospital WestEosinophils/100 WBC (Bld)0.3 %Low0.9 - 7.0 % [facility] HospitalErythrocyte distribution width (RBC) [Ratio]12.6 %11.0 - 15.0 % [facility] HospitalHematocrit (Bld) [Volume fraction]32.0 %Low36.0 - 48.0 %[facility] HospitalHemoglobin (Bld) [Mass/Vol]10.9 g/dLLow12.0 - 16.0 g/dLE[facility] IMMATURE GRANULOCYTES ABS AUTO0.03NOSt. Louis Behavioral Medicine InstituteImmature granulocytes/100 WBC (Bld)0.3 %0.0 - 0.5 %[facility] HospitalInterpretation and review of laboratory resultsAbnormalEastern Missouri State HospitalLYMPHOCYTES ABSOLUTE AUTO1.9NOMS [facility] Lymphocytes/100 WBC (Bld)20.2 %Low20.5 - 60.0 %[facility]H (RBC) [Entitic mass]30.4 pg26.7 - 34.0 pgSSM Health Cardinal Glennon Children's HospitalHC (RBC) [Mass/Vol]34.1 g/dL29.9 - 35.2 g/dLSSM Health Cardinal Glennon Children's HospitalV (RBC) [Entitic vol]89.1 fL81.0 - 99.0 fLEastern Missouri State HospitalMONOCYTES ABSOLUTE AUTO0.4NOSt. Louis Behavioral Medicine InstituteMonocytes/100 WBC (Bld)4.3 % 1.7 - 12.0 %[facility] HealthcareNEUTROPHILS ABSOLUTE AUTO7.0HighEastern [facility] State Hospital Neutrophils/100 WBC (Bld)74.5 %43.0 - 75.0 %[facility] HealthcarePlatelet mean volume (Bld) [Entitic vol]11.4 fL9.5 - 13.5 fLNOSt. Louis Behavioral Medicine InstituteTB EO #0.0NOMS Healthcare TBH [id number] [facility] RBC3.59LowNOSt. Louis Behavioral Medicine InstituteTBH WBC9.4NOID Healthcare CLINISYNCAL[facility] VIEW [facility]PITAL HealthcareUrinalysis macro (dipstick) panel (U)on 03-30-2024 Bilirubin, UANegativeNegative - 4(70) +++ mg/dLAL[facility] VIEW HOSPITAL HealthcareBlood, UANegative Negative - 50 Gabreile/mcLALTA VIEW HOSPITAL HealthcareClarity, UAClearNOMS HealthcareColor, UA YellowNOID HealthcareGlucose, UANegativeNegative - 2000(110) ++++ mg/dLAL[facility] VIEW [facility]OS[facility]ITAL HealthcareInterpretation and review of laboratory resultsAbnormalEastern [facility] Hospital Ketones, UAPositiveNegative - 160(16) ++++ mg/dLEastern Missouri State HospitalLeukocytes, UA NegativeNegative - 500+++ Alexsandar/mcLAL[facility]IEW [facility]OS[facility]ITAL HealthcareNitrite, UANegativeNegative - PositiveNOID HealthcarepH, UA5.55 - 9NOID HealthcareProtein, UANegativeNegative - 2000(20) ++++ mg/dLAL[facility]IEW [facility]OS[facility]ITAL HealthcareSpec Grav, UA1.0301 - 1.03NOSt. Louis Behavioral Medicine Institute Urobilinogen, UA0.20.2 - 12 mg/dLSaint Joseph Hospital of Kirkwood HealthcareAFP, SERUM, OPEN SPINA BIFIDAon [id number] MOM1.19.[facility] HealthcareAFP VALUE75.0 ng/mL.[facility] HealthcareCOMMENT:Comment.[facility] HealthcareComment on above:Josephine Ortiz, Ph.D., [facility] Director References: Available Upon Request. Multiples Of Median Cutoffs For AFP Elevations Blanca 2.5 Black 2.8 IDD 2.0 Twins 4.5 Abbreviation Definitions IDD - Insulin Dep Diabetes OSBR - Open Spina Bifida Risk For further inquiries contact [employer] [facility] at [phone]. This test was developed and its performance characteristics determined by [facility]. It has not been cleared or approved by the Food and Drug Administration. Performed at: TG - [facility] RTP [address] [facility], [place], [place] [id number] Agent: Ginna Hawley [facility], Phone: [phone] GEST. AGE ON COLLECTION DATE21.6. weeksNOID HealthcareGESTAT. AGE BASED ONLMP. [facility] HospitalComment on above:Recalculations are not recommended when gestational dating by LMP and ultrasound are within 10 days. INSULIN DEP DIABETESNo.[facility] HealthcareINTERPRETATIONComment.[facility] Comment on above:Interpretation: Screen Negative This result is screen negative [...] Customer Services to discuss available options. The [employer] recommends amniocentesis be offered to women age 35 and older. MATERNAL AGE AT EDD23.2. yrNOID HealthcareMULTIPLE GESTATIONNo.[facility] OSBR RISK 1 [id number].[facility] State HospitalRACECaucasian.[facility] HospitalRESULTSReport. [facility] HospitalTEST RESULTS:Negative.[facility] HospitalKsdkmkknqjAUHEMP057. lbsNOID HealthcarePREGNANCY N N LMP [id number] 1 17 N 1 Y 171 N N N N N White/ CLINISYNCNOID HealthcareCytology Cervical or vaginal smear or scraping studyon [id number] HealthcareCARDIAC BRAIN ADMITon [id number] [Catalytic activity/Vol]102 U/QMuukvr23-773RouHighland District HospitalComment on above:Performed By: #### CBC #### [facility] [address] [place], [place] [address] Dr. Michelle Walter.MB [Mass/Vol]0.74 ng/mLNormal<=3.60[facility] Comment on above:Performed By: #### CBC #### [facility] [address] [place], [place] [address] Dr. Michelle CaliHSTROP7.7 pg/mLNormal4.0-51.3The [facility] HospitalComment on above:Result Comment: CUT-OFF POINTS HAVE BEEN ESTABLISHED BASED ON THE FOURTH UNIVERSAL DEFINITIONS OF MYOCARDIAL INFARCTION. THE UPPER REFERENCE LIMIT (URL) OF TROPONIN, DEFINED THE 99TH PERCENTILE OF cTnI DISTRIBUTION IN A REFERENCE POPULATION, HAS BEEN CONFIRMED THE DECISION THRESHOLD FOR AL DIAGNOSIS.Performed By: #### CBC #### [facility] [address] [address] [address] Michelle CaliMYO24 ng/mLNormal9-82The [facility] HospitalComment on above: Performed By: #### CBC #### [facility] [address] [place] [address] Dr. Michelle Cadena AUTO DIFFon [id number] #0.1 103/ulNormal0.0-0.1The Parkwood Hospitalment on above:Performed By: #### CBC #### [facility] [address] [place] [address] Dr. Michelle CaliBasophils/100 WBC (Bld)0.9 %Normal0.2-2.0[facility] Comment on above:Performed By: #### CBC #### [facility] [address] [place] [address] Dr. Michelle Carver #0.1 103/ulNormal0.0-0.7The Parkwood Hospitalment on above: Performed By: #### CBC #### [facility] [address] [place] [address] Dr. Michelle Haysosinophils/100 WBC (Bld)0.6 %Critically low0.9-7.0Highland District HospitalComment on above:Performed By: #### CBC #### [facility] [address] [place] [address] Dr. Michelle Haysrythrocyte distribution width (RBC) [Ratio]12.3 %Sgspgd59.0-15.0 The [facility] HospitalComment on above:Performed By: #### CBC #### [facility] [address] [place] [address] Dr. Michelle CaliHematocrit (Bld) [Volume fraction]40.3 %Utlkwj97.0-48.0The [facility] HospitalComment on above:Performed By: #### CBC #### [facility] [address] [place] [address] Dr. Michelle CaliHemoglobin (Bld) [Mass/Vol]13.2 g/zJZdqmkw44.0-16.0The [facility] HospitalComment on above:Performed By: #### CBC #### [facility] [address] [place] [address] Dr. Michelle Michaels #0.03 10e3/ulNormal0.00-0.03The [facility] HospitalComment on above:Performed By: #### CBC #### [facility] [address] [place] [address] Dr. Michelle Michaels %0.3 %Normal0.0-0.5The [facility] HospitalComment on above: Performed By: #### CBC #### [facility] [address] [place] [address] Dr. Michelle Perkins #4.1 103/ulCritically high1.2-3.8The [facility] Comment on above:Performed By: #### CBC #### [facility] [address] [place] [address] Dr. Michelle Perdomohocytes/100 WBC (Bld)39.9 %Ilndeo30.5-60.0The [facility] HospitalComment on above:Performed By: #### CBC #### [facility] [address] [place] [address] Dr. Michelle MendezUAL DIFF REQNONormalThe [facility] HospitalComment on above: Performed By: #### CBC #### [facility] [address] [place] [address] Dr. Michelle Zapata (RBC) [Entitic mass]29.8 wkIxzulx09.7-34.0The [facility] HospitalComment on above:Performed By: #### CBC #### [facility] [address] [place] [address] Dr. Michelle Rey (RBC) [Mass/Vol]32.8 g/mRIvvfwj43.9-35.2The [facility] HospitalComment on above:Performed By: #### CBC #### [facility] [address] [place] [address] Dr. Michelle ReyV (RBC) [Entitic vol]91.0 fEPxcuha65.0-99.0The [facility] HospitalComment on above:Performed By: #### CBC #### [facility] [address] [place] [address] Dr. Michelle Rodriguez #0.5 103/ulNormal0.3-0.8The [facility] HospitalComment on above:Performed By: #### CBC #### [facility] [address] [place] [address] Dr. Michelle Quanocytes/100 WBC (Bld)5.2 %Normal1.7-12.0The [facility] Comment on above:Performed By: #### CBC #### [facility] [address] [place] [address] Dr. Michelle Hardin #5.4 103/ulNormal1.4-6.5The [facility] HospitalComment on above:Performed By: #### CBC #### [facility] [address] [place] [address] Dr. Michelle Riversutrophils/100 WBC (Bld)53.1 %Vyofdl56.0-75.0The [facility] HospitalComment on above:Performed By: #### CBC #### [facility] [address] [place] [address] Dr. Michelle Serratolet mean volume (Bld) [Entitic vol]10.6 fLNormal9.5-13.5The [facility] HospitalComment on above:Performed By: #### CBC #### [facility] [address] [place] [address] Dr. Michelle FreireT310 103/iaGkhtfi096-170Lzi [facility] HospitalComment on above: Performed By: #### CBC #### [facility] [address] [place] [address] Dr. Michelle CaliRBC4.43 106/ulNormal4.20-5.40The [facility] on above:Performed By: #### CBC #### [facility] [address] [place] [address] Dr. Michelle CaliWBC10.2 103/ulNormal4.0-11.0The [facility] on above:Performed By: #### CBC #### [facility] [address] [place] [address] Dr. Michelle Lora-DIMERon 66-35-1996K-DIMER0.19 mg/L FEUNormal<=0.59The [facility] on above:Performed By: #### CBC #### [facility] [address] [place] [address] Dr. Michelle Lora-DIMER COMMENTSSEE [facility] on above:Result Comment: Increases in D-Dimer concentration observed with thromboembolic events [...] stress, and generalized hospitalization. Performed By: #### CBC #### [facility] [address] [place] [address] Dr. Michelle Blanco URINE PROFILEon 19-06-8181Wigklmxjc Ql (U)NegativeNormal NEGATIVEThe [facility] on above:Performed By: #### PREGU, ERUR #### [facility] [address] [place] [address] Dr. Michelle CaliClarity (U)CLEARNormalCLEARUniversity Hospitals Ely[facility] Center on above: Performed By: #### PREGU, ERUR #### [facility] [address] [place] [address] Dr. Michelle Alvarez (U)YELLOWNormalYELLOWThe [facility] HospitalComdetroit receiving hospital on above: Performed By: #### PREGU, ERUR #### [facility] [address] [place] [address] Dr. Michelle Lee micrscopic examination will be performed if indicated. NormalHighland District HospitalComment on above:Performed By: #### PREGU, ERUR #### [facility] [address] [place] [address] Dr. Michelle CaliGlucose Ql (U)NegativeNormalNEGATIVEHighland District HospitalComment on above:Performed By: #### PREGU, ERUR #### [facility] [address] [place] [address] Dr. Michelle CaliHemoglobin Ql (U)NegativeNormalNEGATIVEHighland District Hospital Comment on above:Performed By: #### PREGU, ERUR #### [facility] [address] [place] [address] Dr. Michelle CaliKetones Ql (U)NegativeNormalNEGATIVEHighland District HospitalComment on above:Performed By: #### PREGU, ERUR #### [facility] [address] [place] [address] Dr. Michelle CaliLEUKOCYTESNegativeNormalNEGMarion HospitalComment on above:Performed By: #### PREGU, ERUR #### [facility] [address] [place] [address] Dr. Michelle CaliNitrite Ql (U)NegativeNormalNEGATIVEHighland District HospitalComment on above:Performed By: #### PREGU, ERUR #### [facility] [address] [place] [address] Dr. Michelle CalipH (U)6.0 [pH]Normal5-9Highland District HospitalComment on above: Performed By: #### PREGU, ERUR #### [facility] [address] [place] [address] Dr. Michelle CaliSPEC GRAVITY>=1.582Zsaqyrlv7.005-<=1.025[facility] Comment on above:Performed By: #### PREGU, ERUR #### [facility] [address] [place] [address] Dr. Michelle Vargas PROTEINTRACENormalNEGATIVE/ TRACEThe [facility] HospitalComment on above:Performed By: #### PREGU, ERUR #### [facility] [address] [place] [address] Dr. Michelle Yee MICRO INDNOT INDICATEDNormalThe [facility] HospitalComment on above:Performed By: #### PREGU, ERUR #### [facility] [address] [place] [address] Dr. Michelle CaliUrobilinogen Qn (U)0.2 {Kalyan'U}/dLNormal0.2 - 1.0The [facility] HospitalComment on above:Performed By: #### PREGU, ERUR #### [facility] [address] [place] [address] Dr. Michelle CaliPREGNANCY URon 34-09-4079YLFSNMTCZ, QUALNegativeNormalNEGATIVEThe [facility] HospitalComment on above:Performed By: #### NIGELU, ERUR #### [facility] [address] [place] [address] Dr. Michelle PrajapatiF 14(COMP METB)on 99-94-0823Haxsrku [Mass/Vol]3.9 g/dLNormal 3.4-5.0The [facility] HospitalComment on above:Performed By: #### CBC #### [facility] [address] [place] [address] Dr. Michelle CaliAlbumin/Globulin [Mass ratio]1.0 {ratio}NormalThe [facility] HospitalComment on above:Performed By: #### CBC #### [facility] [address] [place] [address] Dr. Michelle Kerns [Catalytic activity/Vol]69 U/ZNuxxln50-421Nqv [facility] HospitalComment on above:Performed By: #### CBC #### [facility] [address] [place] [address] Dr. Michelle Ying [Catalytic activity/Vol]13 U/LCritically wmb69-28Ffw [facility] HospitalComment on above:Performed By: #### CBC #### [facility] [address] [address] [address] Michelle Peña gap [Moles/Vol]13.6 mmol/LNormalHighland District Hospital Comment on above:Performed By: #### CBC #### [facility] [address] [address] [address] Michelle CaliAST [Catalytic activity/Vol]11 U/LCritically beu71-48Ptd [facility] HospitalComment on above:Performed By: #### CBC #### [facility] [address] [address] [address] Michelle CaliBilirubin [Mass/Vol]0.3 mg/dLNormal0.2-1.0The [facility] Comment on above:Performed By: #### CBC #### [facility] [address] [address] [address] Michelle CaliCalcium [Mass/Vol]9.0 mg/dLNormal8.5-10.1The [facility] Comment on above:Performed By: #### CBC #### [facility] [address] [address] [address] Michelle CaliChloride [Moles/Vol]105 mmol/BKjhrme45-555Hit [facility] Comment on above:Performed By: #### CBC #### [facility] [address] [address] [address] Michelle CaliCO2 [Moles/Vol]26.8 mmol/PWgfevf51.0-32.0The [facility] Comment on above:Performed By: #### CBC #### [facility] [address] [address] [address] Michelle CaliCreatinine [Mass/Vol]0.82 mg/dLNormal0.55-1.02The [facility] HospitalComment on above:Performed By: #### CBC #### [facility] [address] [address] [address] Martinez ChangEGFR-AF IRAQI>60Normal>=60The [facility] HospitalComment on above:Performed By: #### CBC #### [facility] [address] [address] [address] Michelle HaysGFR-NON AF IRAQI>60Normal>=60The [facility] HospitalComment on above:Performed By: #### CBC #### [facility] [address] [address] [address] Michelle CaliGlobulin (S) [Mass/Vol]3.8 g/dLNormalThTogus VA Medical CenterComment on above:Performed By: #### CBC #### [facility] [address] [address] [address] Michelle CaliGlucose [Mass/Vol]104 mg/uJAgucmk71-772Rbj [facility] Comment on above:Performed By: #### CBC #### [facility] [address] [address] [address] Michelle CaliPotassium [Moles/Vol]3.4 mmol/LCritically low3.5-5.1The [facility] HospitalComment on above:Performed By: #### CBC #### [facility] [address] [place] [address] Dr. Michelle CaliProtein [Mass/Vol]7.7 g/dLNormal6.4-8.2The [facility] Comment on above:Performed By: #### CBC #### [facility] [address] [place] [address] Dr. Michelle CaliSodium [Moles/Vol]142 mmol/RGsnfnu998-269Ank [facility] Comment on above:Performed By: #### CBC #### [facility] [address] [place] [address] Dr. Michelle CaliUrea nitrogen [Mass/Vol]9.0 mg/dLNormal7.0-18.0The [facility] HospitalComment on above:Performed By: #### CBC #### [facility] [address] [place] [address] Dr. Michelle Roberts nitrogen/Creatinine [Mass ratio]11.0 mg/mgNormalThe [facility] HospitalComment on above:Performed By: #### CBC #### [facility] [address] [place] [address] Dr. Michelle Holloway 83-57-3861VVA8.358 uIU/mLCritically high0.358-3.740The [facility] HospitalComment on above:Performed By: #### CBC #### [facility] [address] [address] [address] Michelle CaliINSULINon 21-50-1648Pqpkxdo6.8 uIU/mLNormal2.6-24.9The [facility] HospitalComment on above:Performed By: #### CBC #### [facility] [address] [place] [address] Dr. Michelle LockeC AUTO DIFFon 88-28-6389GPLR #0.1 103/ulNormal0.0-0.1The [facility] Hospitalment on above:Performed By: #### CBC #### [facility] [address] [place] [address] Dr. Michelle CaliBasophils/100 WBC (Bld)0.8 %Normal0.2-2.0The [facility] Comment on above:Performed By: #### CBC #### [facility] [address] [address] [address] Michelle Carver #0.1 103/ulNormal0.0-0.7The [facility] Hospitalment on above: Performed By: #### CBC #### [facility] [address] [place] [address] Dr. Michelle Haysosinophils/100 WBC (Bld)0.8 %Critically low0.9-7.0The [facility] HospitalComment on above:Performed By: #### CBC #### [facility] [address] [place] [address] Dr. Michelle Haysrythrocyte distribution width (RBC) [Ratio]12.4 %Hwolig88.0-15.0 The [facility] Hospitalment on above:Performed By: #### CBC #### [facility] [address] [place] [address] Dr. Michelle CaliHematocrit (Bld) [Volume fraction]41.6 %Atcnpv13.0-48.0The [facility] HospitalComment on above:Performed By: #### CBC #### [facility] [address] [place] [address] Dr. Michelle CaliHemoglobin (Bld) [Mass/Vol]14.3 g/fZCtdbut83.0-16.0The [facility] HospitalComment on above:Performed By: #### CBC #### [facility] [address] [place] [address] Dr. Michelle Michaels #0.03 10e3/ulNormal0.00-0.03The [facility] HospitalComment on above:Performed By: #### CBC #### [facility] [address] [place] [address] Dr. Michelle Michaels %0.3 %Normal0.0-0.5The [facility] HospitalComment on above: Performed By: #### CBC #### [facility] [address] [place] [address] Dr. Michelle Perkins #3.1 103/ulNormal1.2-3.8The [facility] HospitalComment on above:Performed By: #### CBC #### [facility] [address] [place] [address] Dr. Michelle Perdomohocytes/100 WBC (Bld)32.8 %Mqnurh81.5-60.0The [facility] HospitalComment on above:Performed By: #### CBC #### [facility] [address] [place] [address] Dr. Michelle MendezUAL DIFF REQNONormalThe [facility] HospitalComment on above: Performed By: #### CBC #### [facility] [address] [place] [address] Dr. Michelle Zapata (RBC) [Entitic mass]29.5 nyNatbio40.7-34.0The [facility] HospitalComment on above:Performed By: #### CBC #### [facility] [address] [place] [address] Dr. Michelle Rey (RBC) [Mass/Vol]34.4 g/bDOkktrd07.9-35.2The [facility] HospitalComment on above:Performed By: #### CBC #### [facility] [address] [place] [address] Dr. Michelle Carrera (RBC) [Entitic vol]86.0 gCXzgjxs69.0-99.0The [facility] HospitalComment on above:Performed By: #### CBC #### [facility] [address] [place] [address] Dr. Michelle oRdriguez #0.5 103/ulNormal0.3-0.8The [facility] HospitalComment on above:Performed By: #### CBC #### [facility] [address] [place] [address] Dr. Michelle Quanocytes/100 WBC (Bld)5.6 %Normal1.7-12.0The [facility] Comment on above:Performed By: #### CBC #### [facility] [address] [place] [address] Dr. Michelle Hardin #5.7 103/ulNormal1.4-6.5The [facility] HospitalComment on above:Performed By: #### CBC #### [facility] [address] [place] [address] Dr. Michelle Riversutrophils/100 WBC (Bld)59.7 %Jzbnou53.0-75.0The [facility] HospitalComment on above:Performed By: #### CBC #### [facility] [address] [place] [address] Dr. Michelle Serratolet mean volume (Bld) [Entitic vol]10.3 fLNormal9.5-13.5The [facility] HospitalComment on above:Performed By: #### CBC #### [facility] [address] [place] [address] Dr. Michelle FreireT319 103/gcLtyczd535-478Hug [facility] HospitalComment on above: Performed By: #### CBC #### [facility] [address] [place] [address] Dr. Michelle CaliRBC4.84 106/ulNormal4.20-5.40The [facility] HospitalComment on above:Performed By: #### CBC #### [facility] [address] [place] [address] Dr. Michelle CaliWBC9.5 103/ulNormal4.0-11.0The [facility] HospitalComment on above: Performed By: #### CBC #### [facility] [address] [place] [address] Dr. Michelle Diamond THYROXINE INDEX T7on 31-92-1506HFN8.18Kfabdk1.30-4.50The [facility] HospitalComdetroit receiving hospital on above:Performed By: #### TSH, CMP, T7, LIPID #### [facility] [address] [place] [address] Dr. Michelle CaliT3U31.0 %Sfdzcc28.0-39.0The [facility] Hospitalment on above: Performed By: #### TSH, CMP, T7, LIPID #### [facility] [address] [place] [address] Dr. Michelle CaliT4 [Mass/Vol]7.60 ug/dLNormal4.80-13.90The [facility] Comment on above:Performed By: #### TSH, CMP, T7, LIPID #### [facility] [address] [place] [address] Dr. Michelle CaliGLYCOHEMOGLOBIN A1Con 27-62-8774NLB RECOMMENDATIONSEE BELOWNormal The [facility] HospitalComdetroit receiving [facility] on above:Result Comment: ADA RECOMMENDED LIMIT 4.0 - 6.0 ADA THERAPEUTIC TARGET < 7.0 ACTION SUGGESTED > 7.0Performed By: #### CBC #### [facility] [address] [place] [address] Dr. Michelle CaliGlucose [Mass/Vol]105 mg/dLNormalThe [facility] HospitalComdetroit receiving hospital on above:Performed By: #### CBC #### [facility] [address] [place] [address] Dr. Michelle CaliHbA1c (Bld) [Mass fraction]5.3 %Normal4.5-6.2The [facility] HospitalComment on above:Performed By: #### CBC #### [facility] [address] [address] [address] Michelle Townsend 31-72-9266Yhwp [Mass/Vol]80.0 ug/uKXnxrek00.0-170.0The [facility] Hospitalment on above:Performed By: #### IRON #### [facility] [address] [address] [address] Michelle Moore PROFILEon 35-80-8820IUKI-HDL RATIO NORMSEE St. [facility] HospitalComdetroit [facility] on above:Result Comment: 3.3 - 4.4 LOW RISK 4.4 - 7.1 AVERAGE RISK 7.1 - 11.0 MODERATE RISK >11.0 HIGH RISKPerformed By: #### TSH, CMP, T7, LIPID #### [facility] [address] [place] [address] Dr. Michelle Deshpandeesterol [Mass/Vol]175 mg/dLNormal<=200[facility] Comment on above:Performed By: #### TSH, CMP, T7, LIPID #### [facility] [address] [address] [address] Michelle Deshpandeesterol in HDL [Mass/Vol]72 mg/dLCritically bilb14-33Nmh [facility] on above:Performed By: #### TSH, CMP, T7, LIPID #### [facility] [address] [address] [address] Michelle CaliCholesterol in LDL [Mass/Vol]85.8 mg/dLMercy Health St. [facility] on above:Performed By: #### TSH, CMP, T7, LIPID #### [facility] [address] [address] [address] Michelle Cali.total/Cholesterol in HDL [Mass ratio]2.4 {ratio} NormalThe [facility] on above:Performed By: #### TSH, CMP, T7, LIPID #### [facility] [address] [address] [address] Michelle Hines NORMAL> or = 60 mg/dl - LOW CARDIOVASCULAR RISK <40 mg/dl - HIGH CARDIOVASCULAR RISKAshtabula General HospitalComment on above:Performed By: #### TSH, CMP, T7, LIPID #### [facility] [address] [address] [address] Michelle Gonzales CALC NORMALSEE BELOWAshtabula General HospitalComment on above:Result Comment: <100 mg/dl OPTIMAL 100 - 129 mg/dl NEAR OR ABOVE OPTIMAL 130 - 159 mg/dl BORDERLINE HIGH 160 - 189 mg/dl HIGH >190 mg/dl VERY HIGH Performed By: #### TSH, CMP, T7, LIPID #### [facility] [address] [address] [address] Michelle CaliTriglyceride [Mass/Vol]86 mg/dLNormal<=150The [facility] Comment on above:Performed By: #### TSH, CMP, T7, LIPID #### [facility] [address] [place] [address] Dr. Michelle HirschLDL CALC17.2 mg/dLNoCleveland Clinic Avon HospitalComment on above: Performed By: #### TSH, CMP, T7, LIPID #### [facility] [address] [place] [address] Dr. Michelle Kang 14(COMP METB)on [id number] [Mass/Vol]4.3 g/dLNormal 3.4-5.0The [facility] HospitalComment on above:Performed By: #### TSH, CMP, T7, LIPID #### [facility] [address] [place] [address] Dr. Michelle CaliAlbumin/Globulin [Mass ratio]1.0 {ratio}NormalThe [facility] HospitalComment on above:Performed By: #### TSH, CMP, T7, LIPID #### [facility] [address] [place] [address] Dr. Michelle Kerns [Catalytic activity/Vol]65 U/MVfvpmr44-765Kul [facility] HospitalComment on above:Performed By: #### TSH, CMP, T7, LIPID #### [facility] [address] [place] [address] Dr. Yilan ChangALT [Catalytic activity/Vol]17 U/PKylnom61-75Oeg [facility] HospitalComment on above:Performed By: #### TSH, CMP, T7, LIPID #### [facility] [address] [address] [address] Michelle CaliAnion gap [Moles/Vol]12.2 mmol/LNormalHighland District Hospital Comment on above:Performed By: #### TSH, CMP, T7, LIPID #### [facility] [address] [address] [address] Michelle CaliAST [Catalytic activity/Vol]15 U/KFbksxp70-18WgsHighland District HospitalComment on above:Performed By: #### TSH, CMP, T7, LIPID #### [facility] [address] [place] [address] Dr. Michelle CaliBilirubin [Mass/Vol]0.4 mg/dLNormal0.2-1.0[facility] Comment on above:Performed By: #### TSH, CMP, T7, LIPID #### [facility] [address] [place] [address] Dr. Michelle CaliCalcium [Mass/Vol]9.4 mg/dLNormal8.5-10.1[facility] Comment on above:Performed By: #### TSH, CMP, T7, LIPID #### [facility] [address] [place] [address] Dr. Michelle CaliChloride [Moles/Vol]104 mmol/FXadyrg50-667UixHighland District Hospital Comment on above:Performed By: #### TSH, CMP, T7, LIPID #### [facility] [address] [place] [address] Dr. Michelle CaliCO2 [Moles/Vol]27.7 mmol/JXdqyiy93.0-32.0[facility] Comment on above:Performed By: #### TSH, CMP, T7, LIPID #### [facility] [address] [place] [address] Dr. Michelle CaliCreatinine [Mass/Vol]0.63 mg/dLNormal0.55-1.02The [facility] HospitalComment on above:Performed By: #### TSH, CMP, T7, LIPID #### [facility] [address] [address] [address] Michelle HaysGFR-AF IRAQI>60Normal>=60The [facility] HospitalComment on above:Performed By: #### TSH, CMP, T7, LIPID #### [facility] [address] [address] [address] Michelle HaysGFR-NON AF IRAQI>60Normal>=60The [facility] HospitalComment on above:Performed By: #### TSH, CMP, T7, LIPID #### [facility] [address] [address] [address] Michelle CaliGlobulin (S) [Mass/Vol]4.2 g/dLNormalThe [facility] on above:Performed By: #### TSH, CMP, T7, LIPID #### [facility] [address] [place] [address] Dr. Michelle CaliGlucose [Mass/Vol]83 mg/hPZgldjk23-487FiwHighland District Hospital Comment on above:Performed By: #### TSH, CMP, T7, LIPID #### [facility] [address] [place] [address] Dr. Michelle CaliPotassium [Moles/Vol]3.9 mmol/LNormal3.5-5.1[facility] Comment on above:Performed By: #### TSH, CMP, T7, LIPID #### [facility] [address] [address] [address] Michelle CaliProtein [Mass/Vol]8.5 g/dLCritically high6.4-8.2[facility] Centerment on above:Performed By: #### TSH, CMP, T7, LIPID #### [facility] [address] [place] [address] Dr. Michelle CaliSodium [Moles/Vol]140 mmol/VKfosbt325-722PinHighland District Hospital Comment on above:Performed By: #### TSH, CMP, T7, LIPID #### [facility] [address] [place] [address] Dr. Michelle Roberts nitrogen [Mass/Vol]9.0 mg/dLNormal7.0-18.0The [facility] HospitalComment on above:Performed By: #### TSH, CMP, T7, LIPID #### [facility] [address] [address] [address] Michelle Roberts nitrogen/Creatinine [Mass ratio]14.3 mg/mgNormalThe [facility] HospitalComment on above:Performed By: #### TSH, CMP, T7, LIPID #### [facility] [address] [address] [address] Michelle Holloway 46-66-2638BQQ7.245 uIU/mLNormal0.358-3.740The [facility] HospitalComment on above:Performed By: #### TSH, CMP, T7, LIPID #### [facility] [address] [address] [address] Michelle CaliCT ABD/PELV W CONon [id number] ABD/PELV W CONEXAM: CT ABDOMEN PELVIS WITH IV CONTRAST CLINICAL [...] Electronically authenticated by: JEFFREY BEGUM Date: 2022-07-06 01:26[facility] AUTO DIFFon 11-03-0023SGVL #0.1 103/ulNormal0.0-0.1The [facility] HospitalComment on above:Performed By: #### CBC #### [facility] [address] [address] [address] Michelle CaliBasophils/100 WBC (Bld)0.9 %Normal0.2-2.0[facility] Comment on above:Performed By: #### CBC #### [facility] [address] [address] [address] Michelle Carver #0.1 103/ulNormal0.0-0.7The [facility] HospitalComment on above: Performed By: #### CBC #### [facility] [address] [address] [address] Michelle Haysosinophils/100 WBC (Bld)1.0 %Normal0.9-7.0The [facility] Comment on above:Performed By: #### CBC #### [facility] [address] [address] [address] Michelle Haysrythrocyte distribution width (RBC) [Ratio]12.5 %Ezbsxy06.0-15.0 The [facility] HospitalComment on above:Performed By: #### CBC #### [facility] [address] [address] [address] Michelle CaliHematocrit (Bld) [Volume fraction]39.6 %Gzxjsf72.0-48.0The [facility] HospitalComment on above:Performed By: #### CBC #### [facility] [address] [address] [address] Michelle CaliHemoglobin (Bld) [Mass/Vol]13.6 g/bOTfckac42.0-16.0The [facility] HospitalComment on above:Performed By: #### CBC #### [facility] [address] [address] [address] Michelle Michaels #0.02 10e3/ulNormal0.00-0.03The [facility] HospitalComment on above:Performed By: #### CBC #### [facility] [address] [place] [address] Dr. Michelle Michaels %0.2 %Normal0.0-0.5The [facility] HospitalComment on above: Performed By: #### CBC #### [facility] [address] [place] [address] Dr. Michelle Perkins #4.0 103/ulCritically high1.2-3.8The [facility] Comment on above:Performed By: #### CBC #### [facility] [address] [place] [address] Dr. Michelle Perdomohocytes/100 WBC (Bld)44.0 %Uwszkn06.5-60.0The [facility] HospitalComment on above:Performed By: #### CBC #### [facility] [address] [place] [address] Dr. Michelle MendezUAL DIFF REQNONormalThe [facility] on above: Performed By: #### CBC #### [facility] [address] [place] [address] Dr. Michelle Rey (RBC) [Entitic mass]29.7 tqFhlqxu44.7-34.0The [facility] Hospitalment on above:Performed By: #### CBC #### [facility] [address] [place] [address] Dr. Michelle Rey (RBC) [Mass/Vol]34.3 g/cZFkkktm67.9-35.2The [facility] Hospitalment on above:Performed By: #### CBC #### [facility] [address] [place] [address] Dr. Michelle Rey (RBC) [Entitic vol]86.5 fJQtcxmu20.0-99.0The [facility] HospitalComment on above:Performed By: #### CBC #### [facility] [address] [address] [address] Michelle Rodriguez #0.6 103/ulNormal0.3-0.8The [facility] HospitalComment on above:Performed By: #### CBC #### [facility] [address] [address] [address] Michelle Quanocytes/100 WBC (Bld)6.7 %Normal1.7-12.0The [facility] Comment on above:Performed By: #### CBC #### [facility] [address] [place] [address] Dr. Michelle Hardin #4.2 103/ulNormal1.4-6.5The [facility] HospitalComment on above:Performed By: #### CBC #### [facility] [address] [place] [address] Dr. Michelle Riversutrophils/100 WBC (Bld)47.2 %Ytyfco62.0-75.0The [facility] HospitalComment on above:Performed By: #### CBC #### [facility] [address] [place] [address] Dr. Michelle Serratolet mean volume (Bld) [Entitic vol]11.4 fLNormal9.5-13.5The [facility] Hospitalment on above:Performed By: #### CBC #### [facility] [address] [place] [address] Dr. Michelle CaliPLT342 103/gmVlydsv453-860Etn [facility] HospitalComment on above: Performed By: #### CBC #### [facility] [address] [place] [address] Dr. Michelle CaliRBC4.58 106/ulNormal4.20-5.40The [facility] Hospitalment on above:Performed By: #### CBC #### [facility] [address] [place] [address] Dr. Michelle CaliWBC9.0 103/ulNormal4.0-11.0The [facility] HospitalComment on above: Performed By: #### CBC #### [facility] [address] [address] [address] Michelle Gordon HCG QUALon [id number], QUALNegativeNormalNEGATIVE The [facility] HospitalComment on above:Performed By: #### PREG #### [facility] [address] [place] [address] Dr. Michelle CaliPROF 14(COMP METB)on 83-06-9411Dszfukj [Mass/Vol]4.4 g/dLNormal 3.4-5.0The [facility] HospitalComment on above:Performed By: #### CBC #### [facility] [address] [place] [address] Dr. Michelle CaliAlbumin/Globulin [Mass ratio]1.1 {ratio}NormalThe [facility] HospitalComment on above:Performed By: #### CBC #### [facility] [address] [place] [address] Dr. Michelle Kerns [Catalytic activity/Vol]82 U/ZDfqams60-865Gzz [facility] HospitalComment on above:Performed By: #### CBC #### [facility] [address] [place] [address] Dr. Michelle Ying [Catalytic activity/Vol]22 U/SMiterc70-04Jot [facility] HospitalComment on above:Performed By: #### CBC #### [facility] [address] [place] [address] Dr. Michelle Peña gap [Moles/Vol]9.3 mmol/LNormalThe [facility] HospitalComment on above:Performed By: #### CBC #### [facility] [address] [place] [address] Dr. Michelle Kim [Catalytic activity/Vol]17 U/CHoxyoj60-44Zzz [facility] HospitalComment on above:Performed By: #### CBC #### [facility] [address] [place] [address] Dr. Michelle CaliBilirubin [Mass/Vol]0.5 mg/dLNormal0.2-1.0The [facility] Comment on above:Performed By: #### CBC #### [facility] [address] [address] [address] Michelle CaliCalcium [Mass/Vol]9.1 mg/dLNormal8.5-10.1The [facility] Comment on above:Performed By: #### CBC #### [facility] [address] [address] [address] Michelle CaliChloride [Moles/Vol]104 mmol/YYltaly49-900Gys [facility] Comment on above:Performed By: #### CBC #### [facility] [address] [address] [address] Michelle CaliCO2 [Moles/Vol]26.8 mmol/PBncwsp72.0-32.0The [facility] Comment on above:Performed By: #### CBC #### [facility] [address] [address] [address] Michelle CaliCreatinine [Mass/Vol]0.73 mg/dLNormal0.55-1.02The [facility] HospitalComment on above:Performed By: #### CBC #### [facility] [address] [address] [address] Michelle HaysGFR-AF IRAQI>60Normal>=60The [facility] HospitalComment on above:Performed By: #### CBC #### [facility] [address] [address] [address] Michelle HaysGFR-NON AF IRAQI>60Normal>=60The [facility] HospitalComment on above:Performed By: #### CBC #### [facility] [address] [address] [address] Michelle CaliGlobulin (S) [Mass/Vol]4.1 g/dLNormalThe [facility] HospitalComment on above:Performed By: #### CBC #### [facility] [address] [address] [address] Michelle CaliGlucose [Mass/Vol]84 mg/gGQixqsy95-134Gwu [facility] Comment on above:Performed By: #### CBC #### [facility] [address] [address] [address] Michelle CaliPotassium [Moles/Vol]3.1 mmol/LCritically low3.5-5.1The [facility] HospitalComment on above:Performed By: #### CBC #### [facility] [address] [address] [address] Michelle CaliProtein [Mass/Vol]8.5 g/dLCritically high6.4-8.2The [facility] HospitalComment on above:Performed By: #### CBC #### [facility] [address] [address] [address] Michelle CaliSodium [Moles/Vol]137 mmol/QPponvn012-954Jiu [facility] Comment on above:Performed By: #### CBC #### [facility] [address] [address] [address] Michelle CaliUrea nitrogen [Mass/Vol]13.0 mg/dLNormal7.0-18.0The [facility] HospitalComment on above:Performed By: #### CBC #### [facility] [address] [address] [address] Michelle Roberts nitrogen/Creatinine [Mass ratio]17.8 mg/mgNormalThe [facility] HospitalComment on above:Performed By: #### CBC #### [facility] [address] [address] [address] Michelle Cali Vital Signs Date TimeVital SignValuePerforming UktdxrbvcHzqifngg91-47-4196 08:54-0400Body mass index (BMI) [Ratio]29.35 kg/m2Agata PRUITT Work Phone: [facility] HospitalKdwzhyephe42-26-5792 08:54-0400Body .56 kgAgata PRUITT Work Phone: [facility] HospitalRyzfgnokip14-70-5169 08:54-0400Diastolic blood obrlnfhh75 mm[Hg]Agata PRUITT Work Phone: noSt. Louis Behavioral Medicine InstituteVrbkodddpn47-16-1229 08:54-0400Systolic blood meemavqe747 mm[Hg]Agata PRUITT Work Phone: [facility] HospitalBwneqcvtqi40-70-6492 09:05-0400Body mass index (BMI) [Ratio]28.75 kg/o4Uxrxa Mauricio DO Work Phone: [facility] HospitalQvvlqrlbvh20-69-0246 09:05-0400Body .98 kgCorey Mauricio DO Work Phone: [facility] HospitalKtoqdrhfyv22-49-9040 09:05-0400Diastolic blood lrfkavbf60 mm[Hg]Roosevelt Maruicio DO Work Phone: [facility] HospitalZwdcftgucw93-18-3269 09:05-0400Systolic blood mspdidhh495 mm[Hg]Roosevelt Mauricio DO Work Phone: [facility] HospitalCxtekflypy02-32-6861 13:49-0400Body mass index (BMI) [Ratio]27.48 kg/z9EbzniK[facility]brook [facility]08-21-2025 13:49-0400Body weight 72.63 kgKingsbrook Jewish Medical Center08-21-2025 13:49-0400Diastolic blood lfitbdjr84 mm[Hg][facility]08-21-2025 13:49-0400Systolic blood mm[Hg][facility]07-03-2025 11:20-0400Body mass index (BMI) [Ratio] 29.18 kg/m2Tojose Pimentel MD Work Phone: [facility] HospitalDyxcpfrnfj24-96-9653 11:20-0400Body .11 kgTojose Pimentel MD Work Phone: [facility] HospitalYignbsdohj28-06-0000 14:46-0500Body mass index (BMI) [Ratio]29.32 kg/u5Mybju Mauricio DO Work Phone: [facility] HospitalMedzsghvsr62-48-2653 14:46-0500Body ubyllh98.47 kgCorey Mauricio DO Work Phone: [facility] HospitalEavbmeoyso41-16-1470 14:46-0500Diastolic blood mm[Hg]Roosevelt Mauricio DO Work Phone: [facility] HospitalMluejetgpy69-54-2229 14:46-0500Systolic blood avvaozps017 mm[Hg]Roosevelt Mauricio DO Work Phone: [facility] HospitalClmkzciork83-69-3099 14:48-0500Body mass index (BMI) [Ratio]29.94 kg/m2Agata Ross PA Work Phone: [facility] HospitalDomynjvbpw18-51-2053 14:48-0500Body agtilq62.11 kgAmy Susana PA Work Phone: [facility] HospitalDhlwlhrjxy91-61-5638 14:48-0500Diastolic blood dqnsvejl17 mm[Hg]Agata Ross PA Work Phone: [facility] HospitalRzkounngab94-79-3384 14:48-0500Systolic blood xkejijri270 mm[Hg]Agata Ross PA Work Phone: [facility] HospitalAmebtzcdwa04-95-3193 10:55-0500Body mass index (BMI) [Ratio]33.3 kg/p2Mogqi Mauricio DO Work Phone: [facility] HospitalBippeiyqmw48-73-8998 10:55-0500Body kg Roosevelt Mauricio DO Work Phone: [facility] HospitalMwcbuwdqpb89-26-8508 10:55-0500Diastolic blood pljveeal12 mm[Hg]Roosevelt Mauricio DO Work Phone: [facility] HospitalAiagbvhpgn80-90-3181 10:55-0500Systolic blood nbriunqv266 mm[Hg]Roosevelt Mauricio DO Work Phone: [facility] HospitalShyuqpctzc61-42-5367 17:16-0500Body mass index (BMI) [Ratio]32.81 kg/o4Oehir Mauricio DO Work Phone: [facility] HospitalQlcxsudfsv40-49-9293 17:16-0500Body izeddg57.69 kgCorey Mauricio DO Work Phone: [facility] HospitalYqyxrpfnjo63-68-1199 17:16-0500Diastolic blood dahekzdh40 mm[Hg]Roosevelt Mauricio DO Work Phone: [place] [address]Acernwbrfj48-29-6676 17:16-0500Systolic blood fotnlunm779 mm[Hg]Roosevelt Mauricio DO Work Phone: [phone] [place] [address]-04-2024 16:27-0500Body mass index (BMI) [Ratio]33.03 kg/o3Hkufp Mauricio DO Work Phone: [phone]-[facility] HospitalQjknhdtirw65-16-8845 16:27-0500Body .27 kgCorey Mauricio DO Work Phone: [phone] [place], [place] [address]Njmovcxrpe11-95-5710 16:27-0500Diastolic blood itgdizvt90 mm[Hg]Roosevelt Mauricio DO Work Phone: [phone] [place], [place] [address]Iytvpntcye97-37-4748 16:27-0500Systolic blood ioexjadf403 mm[Hg]Roosevelt Mauricio DO Work Phone: [phone] [place], [place] [address]Pjcffcxwdb11-97-9501 15:03-0500Body mass index (BMI) [Ratio]33.09 kg/w1Ywelx Mauricio DO Work Phone: [phone] [place] [address]-26-2024 15:03-0500Body zjrzjo86.45 kgCorey Mauricio DO Work Phone: [phone] [place] [address]-26-2024 15:03-0500Diastolic blood buysxrhs72 mm[Hg]Roosevelt Mauricio DO Work Phone: [phone] [place] [address]-26-2024 15:03-0500Systolic blood mvkeixma341 mm[Hg]Roosevelt Mauricio DO Work Phone: [phone] [place] [address]-19-2024 15:14-0500Body mass index (BMI) [Ratio]32.61 kg/m2Agata PRUITT Work Phone: [phone] [place] [address]-19-2024 15:14-0500Body ttzytb67.18 kgAgata PRUITT Work Phone: [phone] [place] [address]-19-2024 15:14-0500Diastolic blood ysnnerhv79 mm[Hg]Agata Georgetown PA Work Phone: [facility] HospitalTlaxmsvumk41-35-4483 15:14-0500Systolic blood skfqeejt590 mm[Hg]Agata Ross PA Work Phone: [phone]-[facility] HospitalLalpcfpxvr99-43-9691 15:21-0500Body mass index (BMI) [Ratio]32.61 kg/m2Amy Susana PA Work Phone: [facility] HospitalQkzkxozbed29-18-7394 15:21-0500Body ktthyv35.18 kgAmy Susana PA Work Phone: [phone]-[facility] [address]Gmgriuphyb89-25-4083 15:21-0500Diastolic blood nljlilpr89 mm[Hg]Agata Ross PA Work Phone: [phone]-[facility] HospitalIverjauovk56-15-4120 15:21-0500Systolic blood vfnclbej055 mm[Hg]Agata Ross PA Work Phone: [phone] [place], [place] [address]Bxjetaoyro64-92-1416 14:52-0400Body mass index (BMI) [Ratio]32.27 kg/h9Wzgxd Mauricio DO Work Phone: [phone]-[facility] HospitalCqsipfxibf97-81-8102 14:52-0400Body zanucb71.28 kgCorey Mauricio DO Work Phone: [phone]-[facility] HospitalQrghbiqkxl58-59-6055 14:52-0400Diastolic blood wmeqvrfr19 mm[Hg]Roosevelt Mauricio DO Work Phone: [phone]-[facility] HospitalTpzulwxfdj31-84-3917 14:52-0400Systolic blood efwhpdwk781 mm[Hg]Roosevelt Mauricio DO Work Phone: [phone] [place], [place] [address]Utxevekqmi55-80-0384 15:49-0400Body mass index (BMI) [Ratio]31.41 kg/m2Amy Susana PA Work Phone: [phone] [place], [place] [address]Mkvqkjjfiw24-23-4359 15:49-0400Body zsacew87.01 kgAmy Susana PA Work Phone: [phone]-[facility] HospitalEpyuetakwp35-53-2130 15:49-0400Diastolic blood rbrbefbq43 mm[Hg]Agata Ross PA Work Phone: [phone] [place], [place] [address]Orehmojfnt30-44-6908 15:49-0400Systolic blood iodcbulz468 mm[Hg]Agata PRUITT Work Phone: NO Mdflpgfbbp28-96-3485 15:49-0400Body mass index (BMI) [Ratio]30.4 kg/m2Agata Susana PRUITT Work Phone: NOSt. [facility] Medicine InstituteEngdcklftm88-29-8479 15:49-0400Body .34 kgAgata Susana PRUITT Work Phone: NOSt. [facility] Medicine InstituteKmxuzctuuf21-85-4215 15:49-0400Diastolic blood mm[Hg]Agata Susana PRUITT Work Phone: noSt. [facility] Medicine InstituteBfkslntbsy71-78-9116 15:49-0400Systolic blood zjojbybd147 mm[Hg]Agata PRUITT Work Phone: noMS Healthcare Encounters Encounter DateEncounter TypeCare ProviderFacilityStart: 05-09-2025 End: 23-47-4388Rmutvk flowsheetAgata PRUITT Work Phone: NO [facility]YNStart: 05-09-2025 End: 53-73-8739Mmcknp flowsheetAgata PRUITT Work Phone: N[facility] OBGYNStart: 05-09-2025 End: 02-69-3981Cipnmqz encounter procedureAgata Susana PRUITT Work Phone: NO HealthcareStart: 05-09-2025 End: 97-36-1164Wdytnczm preventive med est patient 18-39 yrsAgata Susana PRUITT Work Phone: NO [facility] OBGYNComment on above:18 weeks gestation of ([facility]); Second trimester ([facility]); Well woman exam with routine gynecological exam; Exposure to STD; Need for maternal serum alpha-protein (MSAFP) screening ([facility]); Screening, , for anatomic survey ([facility])Start: 04-15-2025 End: 71-77-3770mmuzuydhtaTnuunCleveland Clinic [facility] Hospital Work Phone: Start: 04-15-2025 End: 16-13-1410Gtnpawrb ReferredMaxx Chan MD-LAB Path [facility] Start: 04-10-2025 End: 23-29-4321Iznnbd flowsheetCorey Mauricio DO Work Phone: NOGZ [facility] OBGYNStart: 04-10-2025 End: 09-35-9446Rhqfds flowsheetCorey Mauricio DO Work Phone: [facility]BGYNStart: 04-10-2025 End: 30-54-8275rgxjpunxqhNEXSD FAZIONot AvailableStart: 04-10-2025 End: 38-14-3467Oebkwcdp flow sheetCorey Mauricio DO Work Phone: [facility] OBGYNComment on above:Second trimester ([facility]); 14 weeks gestation of ([facility])Start: 03-09-2025 End: 14-38-7785Vwhqhgvca Result EncounterCorey Mauricio DO Work Phone: noms External Department UnsolicitedStart: 03-09-2025 End: 06-88-5029Gxlsbqmoo Result EncounterCorey Mauricio DO Work Phone: noms External Department UnsolicitedStart: 03-09-2025 End: 63-53-3821Yjfntr outpatient visit 5 minutesFazio Nurse [facility] OBGYNComment on above:GA: 1k6mWplcb: 03-09-2025 End: 48-18-3223ftrahnoqiiNWROY FAZIONot AvailableStart: 02-02-2025 End: 98-09-9570Rycvbsofo Result EncounterCorey Mauricio DO Work Phone: noms External Department UnsolicitedStart: 02-02-2025 End: 47-71-5454Ulkevixxx Result EncounterCorey Mauricio DO Work Phone: noms External Department UnsolicitedStart: 01-19-2025 End: 82-91-0367Owbvhv Susu Pimentel MD Work Phone: [facility] ALLStart: 01-19-2025 End: 28-72-6942Lbxhtsrenetta Pimentel MD Work Phone: [facility] ALLStart: 01-19-2025 End: 58-45-0010Oedlwm outpatient new 30 minutesTojose Pimentel MD Work Phone: N[facility] SWS ALLComment on above:Chronic idiopathic urticaria (Primary Dx)Start: 01-19-2025 End: 41-90-5310mdgantbcxtEEVR E RAMBASEKNot AvailableStart: 09-01-2024 End: 55-37-5697tbjfbiivirYOWQU FAZIONot AvailableStart: 09-01-2024 End: 59-32-9693Hrxzxhnzbq care visitCorey Mauricio DO Work Phone: [facility] BCP OBComment on above:6 weeks follow-upStart: 08-01-2024 End: 50-06-4206Iyuuqe follow up visit related to original Citlali PRUITT Work Phone: [facility] BCP OBComment on above:S/P section; Postop checkStart: 08-01-2024 End: 72-16-7831xqtmhigloeAJZ RAMEYNot AvailableStart: 08-01-2024 End: 80-26-0321Iwmrrq Kelly PRUITT Work Phone: [facility] BCP OBStart: 08-01-2024 End: 06-62-0255Jpcehj Kelly PRUITT Work Phone: [facility] BCP OBStart: 07-13-2024 End: 28-99-1918Jobgsndvy Result EncounterCorey Mauricio DO Work Phone: [facility] External Department UnsolicitedStart: 07-13-2024 End: 34-81-5960Cdcgjuhlk Result EncounterCorey Mauricio DO Work Phone: [facility] External Department UnsolicitedStart: 07-13-2024 End: 58-43-6920mrjxvhvmtmCiwgp FazioFacility:[facility] Start: 07-12-2024 End: 87-37-3028ijqnqhejotFbmkh FazioFacility:[facility] Start: 07-11-2024 End: 66-55-7095Zbownkzfh Result EncounterCorey Mauricio DO Work Phone: [facility] External Department UnsolicitedStart: 07-11-2024 End: 29-52-9982Xzqlbhjgc Result EncounterCorey Mauricio DO Work Phone: [facility] External Department UnsolicitedStart: 07-07-2024 End: 95-79-1666Fwfrxm flowsheetCorey Mauricio DO Work Phone: [facility] BCP OBStart: 07-07-2024 End: 16-00-1233Cptcqc flowsheetCorey Mauricio DO Work Phone: [facility] OBStart: 07-07-2024 End: 11-39-9887znymchvjyqHCDPO FAZIONot AvailableStart: 07-07-2024 End: 29-72-4402Odkbffxl flow sheetCorey Mauricio DO Work Phone: [facility] BCP OBComment on above:38 weeks gestation of ; Third trimester pregnancyStart: 06-29-2024 End: 95-40-8300Iyxxinqs flow sheetCorey Mauricio DO Work Phone: [facility] BCP OBComment on above:Third trimester ; 37 weeks gestation of pregnancyStart: 06-29-2024 End: 92-33-9199aoxovcprwoIRRQX FAZIONot AvailableStart: 06-29-2024 End: 33-37-4239Oyague flowsheetCorey Mauricio DO Work Phone: [facility] OBStart: 06-29-2024 End: 79-43-7921Xgmbyh flowsheetCorey Mauricio DO Work Phone: [facility] OBStart: 06-22-2024 End: 37-43-3697Nkftrfgl flow sheetCorey Mauricio DO Work Phone: [facility] BCP OBComment on above:36 weeks gestation of ; Third trimester pregnancyStart: 06-22-2024 End: 38-69-5301aellmupmoqKCWJC FAZIONot AvailableStart: 06-22-2024 End: 30-34-2865Xlhctv flowsheetCorey Mauricio DO Work Phone: [facility] OBStart: 06-22-2024 End: 86-62-9617Enlzib flowsheetCorey Mauricio DO Work Phone: [facility] OBStart: 06-14-2024 End: 63-20-3490alcbbekwivKHABU FAZIONot AvailableStart: 06-14-2024 End: 47-82-7029Cyutumro flow sheetCorey Mauricio DO Work Phone: [facility] BCP OBComment on above:Third trimester ; 35 weeks gestation of pregnancyStart: 06-14-2024 End: 96-14-0062Wfiwwn flowsheetCorey Mauricio DO Work Phone: [facility]CP OBStart: 06-14-2024 End: 29-67-3369Ptayzf flowsheetCorey Mauricio DO Work Phone: [facility] OBStart: 06-07-2024 End: 46-41-2362umjokxsgoiYIM RAMEYNot AvailableStart: 06-07-2024 End: 17-58-5558Tclysqpd flow sheetAgata PRUITT Work Phone: [facility] BCP OBComment on above:Third trimester ; 34 weeks gestation of pregnancyStart: 06-07-2024 End: 89-64-0088Rvpswx flowsheetAgata PRUITT Work Phone: [facility] OBStart: 06-07-2024 End: 89-33-8311Xdnofr flowsheetAmy Susana PRUITT Work Phone: [facility]CP OBStart: 05-24-2024 End: 19-42-4010kzwxrinnggYAI RAMEYNot AvailableStart: 05-24-2024 End: 95-20-5290Rjztbptj flow sheetAmy Susana PRUITT Work Phone: [facility] BCP OBComment on above:Third trimester ; 34 weeks gestation of pregnancyStart: 05-24-2024 End: 79-62-0505Iezepj Kelly PRUITT Work Phone: [facility] BCP OBStart: 05-24-2024 End: 34-41-0219Ohlzxc flowsCathleen PRUITT Work Phone: [facility] BCP OBStart: 05-10-2024 End: 94-06-7418Jphaludc flow sheetCorey Mauricio DO Work Phone: [facility] BCP OBComment on above:30 weeks gestation of ; Third trimester pregnancyStart: 05-10-2024 End: 38-51-7162kutfhrapqfJKCZO FAZIONot AvailableStart: 05-10-2024 End: 02-78-2717Qnwxmw flowsheetCorey Mauricio DO Work Phone: [facility] OBStart: 05-10-2024 End: 33-96-9919Gcgcwz flowsheetCorey Mauricio DO Work Phone: [facility] OBStart: 04-27-2024 End: 59-21-7684znmqobbtzhAGP Ady AvailableStart: 04-27-2024 End: 42-55-2712Fgsqczey flow Benito PRUITT Work Phone: [facility] BCP OBComment on above:Third trimester ; 28 weeks gestation of ; size inconsistent with datesStart: 04-27-2024 End: 48-43-6538Utbrkx Kelly PRUITT Work Phone: [facility]CP OBStart: 04-27-2024 End: 42-80-0862Iyswpc Kelly PRUITT Work Phone: [facility] BCP OBStart: 04-08-2024 End: 63-35-0339Bmbgozbmv Result EncounterCorey Mauricio DO Work Phone: [facility] External Department UnsolicitedStart: 04-08-2024 End: 06-46-9995Oohixtwla Result EncounterCorey Mauricio DO Work Phone: noMS External Department UnsolicitedStart: 03-30-2024 End: 60-21-8150Jjbcgtmy flow sheetAgata PRUITT Work Phone: [facility] OBComment on above:24 weeks gestation of ; Diabetes mellitus screening; Gastroesophageal reflux in pregnancyStart: 03-30-2024 End: 94-43-4517Adnsqf Kelly PRUITT Work Phone: [facility] OBStart: 03-30-2024 End: 18-18-4860Bvorzr flowsCathleen PRUITT Work Phone: [facility] OBStart: 03-12-2024 End: 99-75-4202Joorjpavo Result EncounterAgata PRUITT Work Phone: noms External Department UnsolicitedStart: 03-12-2024 End: 58-70-1785Yokvmlgye Result EncounterAgata PRUITT Work Phone: noMS External Department UnsolicitedStart: 12-04-2022 End: 82-43-7670xgzrjsnmqhNH SHANTELL MARKER .Facility:E1Bpckc: 09-18-2022 End: 85-28-0510qleooblkwxWR JESUS HOY .Facility:L6Fgsob: 07-05-2022 End: 83-36-6504plxgunvaarEH JESUS HOY .Facility:A2Bxvzu: 05-23-2022 End: 14-97-6769jrhuahtxteXQ JESUS HOY .Facility:H1 Procedures DateProcedureProcedure DetailPerforming ClinicianStart: 29-58-1288Jtafg dip stick/tablet rgnt non-auto w/o micrscpAmy Susana PRUITT Work Phone: Start: 96-97-2555Mlzcy dip stick/tablet rgnt non-auto w/o micrscpCorey Mauricio DO Work Phone: Start: 04-71-3531NSI CBC WITH AUTO DIFFCorey Mauricio DO Work Phone: Start: 57-23-2909Npzrw dip stick/tablet rgnt non-auto w/o micrscpCorey Mauricio DO Work Phone: Start: 40-29-9387NIV PREG QUANT HCGCorey Mauricio DO Work Phone: Start: 91-81-2940JCT CBC WITH AUTO DIFFCorey Mauricio DO Work Phone: Start: 31-23-0695SFSN CBC WITH PLATELET NO DIFFERENTIALCorey Mauricio DO Work Phone: Start: 77-49-7307Ialwn dip stick/tablet rgnt non-auto w/o micrscpCorey Mauricio DO Work Phone: Start: 16-23-3876Hqmfq dip stick/tablet rgnt non-auto w/o micrscpCorey Mauricio DO Work Phone: Start: 86-60-3659Luryv dip stick/tablet rgnt non-auto w/o micrscpCorey Mauricio DO Work Phone: Start: 55-13-6921Fwolh dip stick/tablet rgnt non-auto w/o micrscpAmy Susana PRUITT Work Phone: Start: 02-71-8820Pmsvs dip stick/tablet rgnt non-auto w/o micrscpAmy Susana PRUITT Work Phone: Start: 31-24-9253Ufxpj dip stick/tablet rgnt non-auto w/o micrscpCorey Mauricio DO Work Phone: Start: 11-59-2391Uqsam dip stick/tablet rgnt non-auto w/o micrscpAmy Susana PRUITT Work Phone: Start: 94-79-6124DGY CBC WITH AUTO DIFFCorey Mauricio DO Work Phone: Start: 23-71-3107Twdfw dip stick/tablet rgnt non-auto w/o micrscpAmy Susana PRUITT Work Phone: Start: 80-40-2128FYU, SERUM, OPEN SPINA BIFIDAAmy Susana PRUITT Work Phone: Start: 72-81-8240Vkab cerv/vag auto thin layer prep mnl screenCorey Mauricio HENRY Work Phone: H/O: sectionS/P sectionAmy Susana PRUITT Work Phone: Plan of Treatment DateCare ActivityDetailAuthorStart: 06-07-2025 End: 20-51-9639Sxbpapl encounter /19/2025 11:20 AM EST Routine [facility] [address] [address] Roosevelt Martínez DO [address] [place] [address] [facility]BGYNStart: 05-23-2025 End: 88-05-3401Oqtglkjwzrdy / ancillary services pfarjpwcxq70/04/2025 1:00 PM EST Ancillary Procedure [facility] [address] [id number] [facility]YNStart: 05-09-2025 End: 68-65-4204Wynvf fetoprotein, maternalAlpha fetoprotein, maternal Lab Routine Need for maternal serum alpha-protein (MSAFP) screening ([facility]) Expected: 05/09/2025 (Approximate), Expires: 05/09/2026NOID HealthcareComment on above:Expected: 05/09/2025 (Approximate), Expires: 05/09/2026Start: 05-09-2025 End: 98-50-1959HQ for pregnancyUS OB 14+ weeks anatomy scan Imaging Routine Screening, , for anatomic survey ([facility]) Expected: 05/09/2025, Expires: 08/09/2025NOID HealthcareComment on above:Expected: 05/09/2025, Expires: 08/09/2025Start: 05-09-2025 End: 05-51-7272Jftguyc encounter procedureNOMS Glenda OBGYNComment on above: ArrivedStart: 86-43-4304Ilwhnfpb identified in Urine by CultureUrine Culture [facility] Centertart: 54-70-3340Pwgew cultureSalem Regional Medical Centertart: 04-10-2025 End: 84-28-1515Bnesefo encounter ggtkmrwiz02/22/2025 8:50 AM EDT Routine [facility] [place] [facility] [address] [place], [id number] Roosevelt Martínez DO [address] [place] [address] [facility]BGYNStart: 03-27-2025 End: 35-91-8484Qgnhdft encounter procedureNOMS SWS ALLStart: 03-09-2025 End: 12-44-7707QAH/RhABO/Rh Lab Routine Missed menses , unspecified gestational age ([facility]) Expected: 03/09/2025 (Approximate), Expires: 03/09/2026NOID HealthcareComment on above:Expected: 03/09/2025 (Approximate), Expires: 03/09/2026Start: 03-09-2025 End: 98-85-3938Sjtxc type and Indirect antibody screen panel - BloodType and screen Lab Routine Missed menses , unspecified gestational age ([facility]) Expected: 03/09/2025 (Approximate), Expires: 03/09/2026[facility] Healthcare Comment on above:Expected: 03/09/2025 (Approximate), Expires: 03/09/2026Start: 03-09-2025 End: 27-51-5905Iwsea of abuse panel - Urine by Screen methodRapid drug screen, urine Lab Routine , unspecified gestational age ([facility]) Encounter for supervision of normal first in first trimester ([facility]) Expected: 03/09/2025 (Approximate), Expires: 03/09/2026NOID HealthcareComment on above: Expected: 03/09/2025 (Approximate), Expires: 03/09/2026Start: 02-28-2025 End: 59-48-9871RM Pelvis transvaginalUS OB transvaginal Imaging Routine Missed menses Positive urine test ([facility]) Expected: 02/28/2025, Expires: 05/31/2025[facility] Work Phone: comment on above:Expected: 02/28/2025, Expires: 05/31/2025Start: 01-19-2025 End: 39-65-1006Zeuacml encounter svajmywcz91/03/2025 11:00 AM EDT Office Visit [facility] [address] [address] Adan Pimentel MD [address] [address] ArrivedNOMS SWS ALLComment on above:ArrivedStart: 08-01-2024 End: 16-24-2807Vvkiwnf encounter wtsqejxlv21/13/2025 2:40 PM EST Office Visit [facility] [address] [address] Agata Ross PA [address] [place], [place] [id number] ArrivedNOMS BCP OBComment on above:ArrivedStart: 07-07-2024 End: 67-78-2976Orqbaxw encounter ygwrpxeye47/19/2024 10:20 AM EST Routine [facility] [address] [address] Roosevelt Martínez DO [address] [place], [place] [id number] [facility] BCP OBStart: 06-29-2024 End: 26-89-9127Qvdxyej encounter procedureNOMS BCP OBComment on above:Arrived Start: 06-22-2024 End: 46-50-2626Idetzeo encounter procedureNOMS BCP OBComment on above:Arrived Start: 06-22-2024 End: 19-66-5159Wpyra B DNA probe, amplificationStrep B DNA probe, amplification Lab Routine Third trimester Expected: 06/22/2024 (Approximate), Expires: 06/22/2025[facility] Work Phone: comment on above:Expected: 06/22/2024 (Approximate), Expires: 06/22/2025Start: 06-14-2024 End: 13-45-2639Shlwqhk encounter ajdxzpqaj01/26/2024 2:20 PM EST Routine [facility] [address] [address] Roosevelt Martínez, DO [address] [place], [place] [address] [facility] BCP OBStart: 06-07-2024 End: 68-87-8435Ctvzbvq encounter yesqriffd69/19/2024 2:50 PM EST Routine [facility] [address] [address] Agata Ross, PA [address] [place], [place] [address] [facility] BCP OBStart: 05-24-2024 End: 65-55-0736Bfkglar encounter ratdejnzq86/05/2024 2:40 PM EST Routine [facility] [address] [address] Agata Ross, PA [address] [place], [place] [address] [facility] BCP OBStart: 05-10-2024 End: 28-88-4600Kyctdzr encounter mesfltngk38/22/2024 2:50 PM EDT Routine [facility] [address] [place] [address] Roosevelt Martínez, DO [address] [place] [address] [facility]ENC[facility] OBComment on above: ArrivedStart: 05-10-2024 End: 94-12-8172Augwudcnousa / ancillary services rrkckzltsi05/22/2024 2:00 PM EDT Ancillary Procedure [facility] [address] [address] [facility]CP OBStart: 04-27-2024 End: 97-31-9899Iybghio encounter xljagrpme51/09/2024 3:40 PM EDT Routine [facility] [address] [address] Agata Ross PA [address] [place] [address] [facility] BCP OBStart: 04-27-2024 End: 72-82-7302XS for pregnancyUS OB SCAN FOR GROWTH Imaging Routine size inconsistent with dates Expected: 04/27/2024(Approximate), Expires: 04/27/2025[facility] Healthcare Work Phone: comment on above:Expected: 04/27/2024 (Approximate), Expires: 04/27/2025Start: 03-30-2024 End: 64-52-5824Njoxrom encounter procedureNOMS BCP OBComment on above:Arrived Start: 03-30-2024 End: 75-91-0152JGV panel - Blood by Automated countCBC Lab Routine Diabetes mellitus screening Expected: 03/30/2024 (Approximate), Expires: 03/30/2025[facility] Healthcare Work Phone: comment on above:Expected: 03/30/2024 (Approximate), Expires: 03/30/2025Start: 03-30-2024 End: 10-71-0472Kppcoupyrfr of glucose 1 hour after glucose challenge for glucose tolerance testGlucose tolerance, 1 hour Lab Routine Diabetes mellitus screening Expected: 03/30/2024 (Approximate), Expires: 03/30/2025[facility] HealthcareComment on above:Expected: 03/30/2024 (Approximate), Expires: 03/30/2025acteria identified in Urine by CultureUrine culture Microbiology Routine Missed menses Ordered: 03/09/2025[facility] HealthcareComment on above:Ordered: 03/09/2025BC W Auto Differential panel - BloodCBC and differential Lab Routine Missed menses , unspecified gestational age ([facility]) Ordered: 03/09/2025[facility] HealthcareComment on above:Ordered: 03/09/2025HLAMYDIA TRACHOMATIS (GENITO/STI) CHLAMYDIA TRACHOMATIS (GENITO/STI) Lab Routine Exposure to STD Ordered: 05/09/2025[facility] HealthcareComment on above:Ordered: 05/09/2025ytology Cervical or vaginal smear or scraping studyPap Smear Pathology and Cytology Routine Well woman exam with routine gynecological exam Ordered: 05/09/2025[facility] Healthcare Comment on above:Ordered: 05/09/2025Hemoglobin A1c/Hemoglobin.total in Blood Hemoglobin A1c Lab Routine Missed menses , unspecified gestational age ([facility]) Ordered: 03/09/2025[facility] HealthcareComment on above:Ordered: 03/09/2025 Hepatitis B virus surface Ag [Presence] in Serum or Plasma by Immunoassay Hepatitis B surface antigen Lab Routine Missed menses , unspecified gestational age ([facility]) Ordered: 03/09/2025[facility] HealthcareComment on above: Ordered: 03/09/2025Hepatitis C virus Ab [Presence] in Serum or Plasma by ImmunoassayHepatitis C antibody Lab Routine Missed menses , unspecified gestational age ([facility]) Ordered: 03/09/2025[facility] HealthcareComment on above: Ordered: 03/09/2025HIV-1/HIV-2 antigen/antibody combination immunoassayHIV-1 and HIV-2 antibodies Lab Routine Missed menses , unspecified gestational age ([facility]) Ordered: 03/09/2025[facility] HealthcareComment on above:Ordered: 03/09/2025Neisseria gonorrhoeae DNA [Presence] in Unspecified specimen by LALITO with probe detectionNeisseria gonorrhea DNA probe, direct Lab Routine Exposure to STD Ordered: 05/09/2025[facility] HealthcareComment on above:Ordered: 05/09/2025 Reagin Ab [Presence] in Serum by RPRRPR Lab Routine Missed menses , unspecified gestational age ([facility]) Ordered: 03/09/2025[facility] HealthcareComment on above:Ordered: 03/09/2025Rubella antibody, IgGRubella antibody, IgG Lab Routine Missed menses , unspecified gestational age ([facility]) Ordered: 03/09/2025[facility] HealthcareComment on above:Ordered: 03/09/2025SURESWAB(R) ADVANCED VAGINITIS PLUS, TMASURESWAB(R) ADVANCED VAGINITIS PLUS, TMA Pathology and Cytology Routine Exposure to STD Ordered: 05/09/2025[facility] Healthcare Work Phone: comment on above:Ordered: 05/09/2025US Pelvis transvaginalUS OB transvaginal Imaging Routine Missed menses Positive urine test ([facility]) :[facility] Payers DatePayer CategoryPayerPolicy [id number] [id number] [id number] 2019 [facility] Member Subscriber Plan / Payer (Effective 2018- Present) Name: MasonLatha Relation to Subscriber: Child Name: Job Keith Date of : 1977 (Home) Address: [address] [place] [address] Payer ID: Not on file Type: Not on file Address: [address] [place] [id number] [facility] [id number] 2018-Present [phone] [address] [place] [address] [id number] 2.16840.1.825107.3.57[id number] 2.840.1.910265.3.57[id number] 2.16840.1.231716.3.579.[id number] 2.840.1.146043.3.57[id number] 2.840.1.401792.3.57[id number] 2.840.1.098885.3.579.[id number] 2.840.1.751124.3.57[id number] 2.840.1.383462.3.579.2.[id number] 2.840.1.297300.3.579.2.[id number] 2.840.1.699913.3.579.2.30[id number] 2.840.1.444730.3.57[id number] 2.840.1.843147.3.579.2.917388-11-0058Rahfvvu5241528 2.840.1.237299.3.579.2.380567-22-5849Aselnjr0257100 2.840.1.037823.3.57[id number] 2.840.1.971930.3.579.2.[id number] 2.16.840.1.131213.3.57[id number] 2.16.840.1.964709.3.57[id number] 2.16.840.1.786380.3.579.2.810270-72-4793Lrgf-[id number] [id number] 2.16.840.1.3[id number] 2.16.840.1.3[id number] 2.16.840.1.806025.3.579.2.531 Social History DateTypeDetailFacilityStart: 02-07-2021 End: 92-08-2107Bqtdeml smoking status NHISNever smoked tobaccoNOMS Healthcare Start: 85-03-7346Ucszuys use and exposureSmokeless tobacco non-userNOMS HealthcareStart: 03-02-2024 End: 60-10-8846Slnnmzico beverage intakeLifetime non-drinker (finding)[facility] HealthcareStart: 11-19-2023 End: 99-78-9722Xzmwhkw of Social functionNOMS HealthcareStart: 11-19-2023 End: 31-62-8452Eavvggo use panelNOMS HealthcareStart: 56-31-9742Jykvyyl Comment Caffeine intake: noneNOMS HealthcareStart: 03-05-4618PqgkzxwlpMSJF Healthcare Start: 20-40-6546Ivg assigned at birthNot on fileNOMS HealthcareStart: 05-10-2024 End: 32-77-3088Mystscpue beverage intakeCurrent drinker of alcohol (finding)[facility] HealthcareSexFemale (finding)[facility] Centertart: 2001 Sex Assigned At BirthFeKettering Memorial Hospitaltart: 99-62-2483Saz FemaleNOMS Healthcare Clinical Notes 03-30-2024 to 05-09-2025 Note Date & AjzsYxoaYuouvcer44-10-5526 History of Present illness Narrative* EDMOND Osborn - 05/09/2025 8:30 AM EDT [...] with hypertrophy of adenoids 11/19/2023 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 Exam conducted with a plant attendant or assistant operator present. Vitals: Estimated body mass index is 28.75 kg/m as calculated from the following: Height as of 04/21/23: 5' 4 . Weight as of 04/10/25: 167 lb 8 oz. BP: No LMP recorded. Patient is . Assessment/Plan ICD-10-CM 1. 18 weeks gestation of ([facility]) Z3A.18 POCT urinalysis dipstick manually resulted 2. Second trimester ([facility]) Z34.92 3. Well woman exam with routine gynecological exam Z01.419 CANCELED: Pap Smear 4. Exposure to STD Z20.2 SURESWAB(R) ADVANCED VAGINITIS PLUS, TMA CHLAMYDIA TRACHOMATIS (GENITO/STI) Neisseria gonorrhea DNA probe, direct 5. Need for maternal serum alpha-protein (MSAFP) screening ([facility]) Z36.1 Alpha fetoprotein, maternal Alpha fetoprotein, maternal 6. Screening, , for anatomic survey ([facility]) Z36.89 US OB 14+ weeks anatomy scan [...] behalf of: EDMOND Osborn documented [facility] encounterE[facility] [id number] History of Present illness Narrative* Dali Barroso NP - 04/10/2025 8:50 AM EDT Reason for Appointment: Patient ID: Latha Cuevas is a 25 y.o. female who presents for Routine Visit Patient presents today for Return OB appointment. 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 Exam conducted with a plant attendant or assistant operator present. Vitals: Estimated body mass index is 28.75 kg/m as calculated from the following: Height as of 04/21/23: 5' 4 . Weight as of this encounter: 167 lb 8 oz. BP: 110/80 No LMP recorded. Patient is . ASSESSMENT & PLAN ICD-10-CM 1. Second trimester ([facility]) Z34.92 POCT urinalysis dipstick manually resulted 2. 14 weeks gestation of (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 [...] this visit: History of shingles Hx of Guillain-Rolette syndrome Missed menses - US OB transvaginal; Future - Type and screen; Future - ABO/Rh; Future - CBC and differential - Hemoglobin A1c - RPR - Rubella antibody, IgG - Hepatitis B surface antigen - Hepatitis C antibody - HIV-1 and HIV-2 antibodies - Urine culture - POCT , urine manually resulted - POCT urinalysis dipstick manually resulted Positive urine test ([facility]) - US OB transvaginal; Future , unspecified gestational age ([facility]) - Type and screen; Future - ABO/Rh; Future - CBC and differential - Hemoglobin A1c - RPR - Rubella antibody, IgG - Hepatitis B surface antigen - Hepatitis C antibody - HIV-1 and HIV-2 antibodies - Rapid drug screen, urine; Future Encounter for supervision of normal first in first trimester ([facility]) - Rapid drug screen, urine; Future Nurse Note: Follow Up: Patient is to have labs drawn at directed and return to office for initial OB appointment with provider. Patient may call office as needed with any concerns or questions. Nurse Visit Completed by: Aimee Burleson LPN documented in this encounterEastern Missouri State [id number] History of Present illness Narrative* Adan Pimentel MD - 01/19/2025 11:00 AM EDT Latha Cuevas is a very pleasant 24 [...] the hives. Cetirizine made her heart rate goup. EXAM The patient appears comfortable in the [...] levo cetirizine or fexofenadine whichever she tolerates be tter as previous antihistamine therapy had exacerbated her POTS symptoms. I suggested she up titrate the dose of these medications to 4 tablets daily and follow up in 2 months for reassessment or sooner should problems arise. 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 Exam conducted with a plant attendant or assistant operator present. Vitals: Estimated body mass index is [...] CT is scheduled for tomorrow @8:30am @ [facility]. Patient is going to return to work on Thursday and will obtain a return to work note. Patient will continue applying heat. Patient declines control at this time. Patient to return to clinic for routine annual appointment. 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 History of shingles 11/23/2023 History [...] Eczema Fatigue Gastritis without bleeding GBS (Guillain Rolette syndrome) (CMS/HCC) Guillain Andrews syndrome (CMS/HCC) Hyperplasia [...] Eczema Fatigue Gastritis without bleeding GBS (Guillain Rolette syndrome) (CMS/HCC) Guillain Andrews syndrome (CMS/HCC) Hyperplasia [...] behalf of: EDMOND Osborn documented in this encounterEastern Missouri State HospitalPhwydbnxag90-51-8065 History of Present illness Narrative* Amarilis Valentinscott, TIPPLE MECHANIC - 07/07/2024 10:20 AM EST Reason for Appointment: Patient ID: Latha Cuevas [...] (upper airway resistance syndrome) 11/19/2023 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 Exam conducted with a plant attendant or assistant operator present. Vitals: Estimated body mass index is [...] is currently 2-3cm dilated and signed IOL consentfor 07/11/24. Patient to arrive at ER at 11pm on 07/11/24. Patient to return to clinic for post appointment. 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 Exam conducted with a plant attendant or assistant operator present. 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 History of shingles 11/23/2023 History [...] Eczema Fatigue Gastritis without bleeding GBS (Guillain Rolette syndrome) (CMS/HCC) Guillain Andrews syndrome (CMS/HCC) Hyperplasia [...] Eczema Fatigue Gastritis without bleeding GBS (Guillain Rolette syndrome) (CMS/HCC) Guillain Andrews syndrome (CMS/HCC) Hyperplasia [...] Documented by EDMOND Osborn documented in this encounterEastern Missouri State HospitalOvldvhmklg91-60-9394 History of Present illness Narrative* Chelsey Narvaez, TIPPLE MECHANIC - 06/14/2024 2:20 PM EST Reason for Appointment: Patient ID: Latha Cuevas [...] (upper airway resistance syndrome) 11/19/2023 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 Exam conducted with a plant attendant or assistant operator present. 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 History of shingles 11/23/2023 History [...] Eczema Fatigue Gastritis without bleeding GBS (Guillain Rolette syndrome) (CMS/HCC) Guillain Andrews syndrome (CMS/HCC) Hyperplasia [...] Eczema Fatigue Gastritis without bleeding GBS (Guillain Rolette syndrome) (CMS/HCC) Guillain Andrews syndrome (CMS/HCC) Hyperplasia [...] behalf of: EDMOND Osborn documented in this encounterEastern Missouri State HospitalZaqddcybva00-06-9701 History of Present illness Narrative* EDMOND Osborn - 05/24/2024 2:40 PM EST Reason for Appointment: Patient ID: Latha Cuevas [...] (upper airway resistance syndrome) 11/19/2023 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 History of shingles 11/23/2023 History [...] Eczema Fatigue Gastritis without bleeding GBS (Guillain Rolette syndrome) (CMS/HCC) Guillain Andrews syndrome (CMS/HCC) Hyperplasia [...] Eczema Fatigue Gastritis without bleeding GBS (Guillain Rolette syndrome) (CMS/HCC) Guillain Andrews syndrome (CMS/HCC) Hyperplasia [...] behalf of: EDMOND Osborn documented in this encounterEastern Missouri State HospitalGiimnvhcfu25-99-5109 History of Present illness Narrative* Chelsey Narvaez LPN - 05/10/2024 2:50 PM EDT Reason for Appointment: Patient ID: Latha [...] (upper airway resistance syndrome) 11/19/2023 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 Exam conducted with a plant attendant or assistant operator present. 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 [...] behalf of: EDMOND Osborn documented in this encounterEastern Missouri State HospitalBtneruzwfl00-19-0702 History of Present illness Narrative* EDMOND Osborn - 03/30/2024 3:30 PM EDT Reason for Appointment: Patient ID: Latha [...] (upper airway resistance syndrome) 11/19/2023 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 Exam conducted with a plant attendant or assistant operator present. Vitals: Estimated body mass index is [...] behalf of: EDMOND Osborn documented in this encounterNOID HealthcareEvaluation note* Diagnosis Third trimester state, incidental 28 weeks [...] note* Diagnosis History of shingles Hx of Guillain-Rolette syndrome Missed menses Positive urine test ([facility]) , unspecified gestational age ([facility]) Encounter for supervision of normal first in first trimester ([facility]) documented in this encounter [facility]* Diagnosis Second trimester ([facility]) state, incidental 14 weeks gestation of ([facility]) documented in this encounter [facility] HealthcareEvaluation noteNo assessment information availableTrihealth Mccull[facility] Work Phone: Evaluation note* Diagnosis 18 weeks gestation of ([facility]) Second trimester ([facility]) state, incidental Well woman exam with routine gynecological exam Routine gynecological examination Exposure to STD Need for maternal serum alpha-protein (MSAFP) screening ([facility]) Screening, , for anatomic survey ([facility]) Encounter for anatomic survey documented in this encounter [facility] HealthcareReason for referral (narrative)No reason for referral information availableTrihealth Mccull[facility] Work Phone: Summary Purpose Family History Relationship Condition Age at Onset Recorded Date/T blake Not Specified No pertinent family history Unknown Advance Directives Advance Directive Response Recorded Date/ Time Advance Directives No February 02 21 11:16am Additional Source Comments INFORMATION SOURCE (unrecogn ized section and content) DATE CREATED AUTHOR 12/09/2022 [facility] DATE CREATED AUTHOR AUTHOR'S ORGANIZ ATION 04/10/2025 [facility] DATE CREATED AUTHOR AUTHOR'S ORGANIZ ATION 04/22/2025 [facility] Reason for Visit (unrecogniz ed section and content) ReasonCommentsRoutine VisitReasonCommentsPost-op VisitReasonComments CareReasonCommentsHivesPt here today bc she has POTS pt is having a hard time eating, she's itching all the time, break out into hives over just being outside , hives shower, after swimming hivesReasonCommentsAmenorrheaReason CommentsRoutine VisitSTI Screening Care Teams (unrecognized sec tion and content) Team MemberRelationshipSpecialtyStart DateEnd Date Jesus Tsang MD [address] [facility] [place] [address] PCP - Generalmily Fczuciek00/3/23Te MemberRelationshipSpecialtyStart DateEnd Date Jesus Tsang MD [address] [facility] [place] [address] PCP - GeneralFamily Ginlfnid95/3/23Team MemberRelationshipSpecialtyStart DateEnd Date Jesus Tsang MD [address] [facility] [place] [address] PCP - GeneralFamily Byakelaa08/3/23Team MemberRelationshipSpecialtyStart DateEnd Date Jesus Tsang MD [address] [facility] [place] [address] PCP - GeneralFamily Qzghfovd59/3/23Team MemberRelationshipSpecialtyStart DateEnd Date Jesus Tsang MD [address] [facility] [place] [address] PCP - Generalmi Phijcuzl92/3/23Te MemberRelationshipSpecialtyStart DateEnd Date Jesus Tsang MD [address] [facility] [place] [address] PCP - GeneralFamily Qavnyvmq59/3/23Team MemberRelationshipSpecialtyStart DateEnd Date Jesus Tsang MD [address] [facility] [place] [address] PCP - GeneralFamily Cgrkdmnq23/3/23Team MemberRelationshipSpecialtyStart DateEnd Date Jesus Tsang MD [address] [facility] [place] [address] PCP - GeneralFamily Vrxjttad46/3/23Team MemberRelationshipSpecialtyStart DateEnd Date Jesus Tsang MD [address] [facility] [place] [address] PCP - GeneralFamily Uyfebpou44/3/23Team MemberRelationshipSpecialtyStart DateEnd Date Jesus Tsang MD [address] [facility] [place] [address] PCP - GeneralFamily Myamkakb74/3/23Team MemberRelationshipSpecialtyStart DateEnd Date Jesus Tsang MD [address] [facility] [place] [address] PCP - GeneralFamily Dcrnully14/3/23Team MemberRelationshipSpecialtyStart DateEnd Date Jesus Tsang MD PCP - GeneralFamily Kbbpfzeh52/3/23Team MemberRelationshipSpecialtyStart DateEnd Date Jesus Tsang MD PCP - Generalmi Xdgxuldb02/3/23Team MemberRelationshipSpecialtyStart DateEnd Date Jesus Tsang MD PCP - [facility]04/21/23Team MemberRelationshipSpecialtyStart DateEnd Date Jesus Tsang MD PCP - [facility]04/21/23 Team Status: Inactive Member Role Status Dates Maxx Chan MD Attending Provider Active St art: April 15, 2025 End: April 15, 2025Team MemberRelationshipSpecialtyStart DateEnd Date Jesus Tsang MD [address] [place] [address] PCP - [facility]04/21/23 Goals (unrecognized section and content) Goals may [...] BE BASED ON THE PRIMARY CLINICAL RECORDS. [facility] [employer] [facility]. provides no warranty or guarantee of the accuracy or completeness of information in this document.
[2025-05-12 14:09] LABS: Age Gdln ACOG Testing Note (.); IGP, rfx Aptima HPV ASCU Note (.)
== END 2025-05-09 12:53 | disposition home or self-care (01) ==
LOC: LAB 12:52
PROVIDERS: PCP Family Medicine; Visit Provider Physician Assistant
DX: Z01.419 Encounter for gynecological examination (general) (routine) without abnormal findings (principal)
CPT/HCPCS: 88175

== ENCOUNTER 2025-07-10 07:10 | Outpatient (OUT) | payer BC, MEDICAID, SELFPAY ==
--- OUTSIDE RECORDS SUMMARY | 2025-07-05 09:30 | XMS_ITS | Encounter Summary ---
Author Organization [facility] Address [address] [place] [address] Care Team Providers Care Fence Installer Helper Name Role Phone Fady Tsang MD Primary Care Provider [phone] Reason for Visit * ReasonCommentsRoutine Visit Encounter Details DateTypeDepartmentCare Team (Latest Contact Info)Etvovurdbvj81/17/2025 9:30 AM ESTRoutine [facility] [address] [place] [phone] Agata Ross PA [address] [place] [address] Second trimester ([facility]); 26 weeks gestation of ([facility]) Social History Tobacco UseTypesPacks/DayYears UsedDateSmoking Tobacco: NeverSmokeless Tobacco: NeverAlcohol UseStandard Drinks/WeekCommentsYes4 (1 standard drink = 0.6 oz pure alcohol)Caffeine intake: noneEstimated Date of DeliveryCommentsYes 6Based on Ultrasound, FHR-180Sex and Gender InformationValueDate RecordedSex Assigned at BirthNot on fileLegal JcwFpobaq31/15/2023 8:32 PM EDT Gender IdentityNot on fileSexual OrientationNot on filedocumented as of this encounter Last Filed Vital Signs Vital SignReadingTime TakenCommentsBlood Mmqhuvqu076/8207/05/2025 9:34 AM EST Pulse--Temperature--Respiratory Rate--Oxygen Saturation--Inhaled Oxygen Concentration--Npqqbk70.9 kg (185 lb)07/05/2025 9:34 AM ESTHeight--Body Mass Index31.7610/09/2022 3:18 PM EDTdocumented in this encounter Progress Notes * EDMOND Osborn - 07/05/2025 9:30 AM EST Reason for Appointment: Patient ID: Latha Cuevas is a 25 y.o. female who presents for Routine Visit Patient presents today for Return OB appointment. MEDICATIONS Current Outpatient Medications Medication Instructions MV-Min-Fe Fum-FA-DHA ( 1 PO) 1 tablet, Daily ALLERGIES No Known Allergies PROBLEMS Active Ambulatory Problems Diagnosis Date Noted Hypertrophy of tonsils with hypertrophy of adenoids 11/19/2023 Hx of Guillain-[place]ainesville syndrome 11/23/2023 History of shingles 11/23/2023 Resolved [...] Eczema Fatigue Gastritis without bleeding GBS (Guillain [place] syndrome) (HCC) Guillain Andrews?? syndrome (HCC) Hyperplasia [...] Eczema Fatigue Gastritis without bleeding GBS (Guillain [place] syndrome) (HCC) Guillain Andrews?? syndrome (HCC) Hyperplasia [...] nursing note reviewed. Exam conducted with a almond huller present. Vitals: Estimated body mass index is 30.04 kg/m?? as calculated from the following: Height as of 04/21/23: 5' 4 . Weight as of 06/07/25: 175 lb. BP: No LMP recorded. Patient is . ASSESSMENT & PLAN ICD-10-CM 1. Second trimester ([facility]) Z34.92 2. 26 weeks gestation of ([facility]) Z3A.26 POCT urinalysis dipstick manually resulted Assessment/Plan Return OB: Patient presents today for a routine obstetrics appointment. Patient is currently 26w3d . Patient states she is doing well [...] week for routine OB appointment. Documented by Anum Howard CST on behalf of: EDMOND Osborn documented in this encounter Plan of Treatment DateTypeDepartmentCare Team (Latest Contact Info)Chtwehhduup21/31/2025 9:20 AM ESTRoutine [facility] [address] [place] [phone] Dali Barroso, VANGIE [address] [place] [phone] documented as of this encounter Visit Diagnoses Diagnosis Second trimester ([facility]) state, incidental 26 weeks gestation of ([facility]) documented in this encounter Care Teams Team MemberRelationshipSpecialtyStart DateEnd Fady Tsang MD [address] [facility] [place] [address] PCP - GeneralFamily Pluqiunr57/3/23documented as of this encounter
--- OUTSIDE RECORDS SUMMARY | 2025-07-10 07:14 | XMS_ITS | Encounter Summary ---
Author Organization [facility] Address [address] [place] [address] Care Team Providers Care Insight Leader Name Role Phone Fady Tsang MD Primary Care Provider [phone] Encounter Details DateTypeDepartmentCare Team (Latest Contact Info)Jqnpejxmqpq45/17/2025amboo flowsheet MARIAN STEPHENSON [address] [place] [address] Agata Ross PA [address] [place] [address] Social History Tobacco UseTypesPacks/DayYears UsedDateSmoking Tobacco: NeverSmokeless Tobacco: NeverAlcohol UseStandard Drinks/WeekCommentsYes4 (1 standard drink = 0.6 oz pure alcohol)Caffeine intake: noneEstimated Date of DeliveryCommentsYes 6Based on Ultrasound, FHR-180Sex and Gender InformationValueDate RecordedSex Assigned at BirthNot on fileLegal FrnOhkeil24/15/2023 8:32 PM EDT Gender IdentityNot on fileSexual OrientationNot on filedocumented as of this encounter Plan of Treatment DateTypeDepartmentCare Team (Latest Contact Info)Tdagtkqyetn04/31/2025 9:20 AM ESTRoutine [facility] [address] [place] [address] Dali aBrroso, EYEDOTTER [address] [place] [address] documented as of this encounter Visit Diagnoses Not on filedocumented in this encounter Care Teams Team MemberRelationshipSpecialtyStart DateEnd Date Fady Tsang MD [address] [place] [address] PCP - GeneralFamily Fylqaylm54/3/23documented as of this encounter
--- OUTSIDE RECORDS SUMMARY | 2025-07-10 07:15 | XMS_ITS | Patient Health Record ---
Author Organization The [facility] [place] Address [address] [place] [address] Care Team Providers Care Business Process Analyst Name Role Phone Kentrell Tsang Primary Care Provider Allergies No Known Allergies Results Component Value Reference Range Notes CT cervical spine wo con Reviewed date:09/03/2024 02:00:54 PM Interpretation: Performing Lab: Notes/Report: Source Facility: [place] [address] CT Scan Report Signed Patient: LATHA STEEL MR#: [id number] : 2000 Acct:[id number] Age/Sex: 24 / F ADM Date: 09/02/24 Loc: CT Attending Dr: Jesus Tsang M.D. Ordering Physician: Jesus Tsang M.D. Date of Service: 09/02/24 Procedure(s): CT cervical spine wo con Accession Number(s): [id number] cc: Jesus Tsang M.D. [place] [address] Patient Name: LATHA STEEL MRN: [id number] date: 2000 Sex: F Assigned Patient Location: CT Current Patient Location: CT Accession/Order Number: [id number] Exam Date: 09/02/2024 08:43 Report Date: 09/02/2024 [...] M.D. Signed By: 09/02/241818 DD/ 15 TD/TT: Asphalt Patcher: CBC AUTO DIFF Reviewed date:07/14/2024 05:56:16 PM Interpretation: Performing Lab: Notes/Report: [facility] , White Blood Count 24.5 4.0-11.0 10 3/uL Red Blood Count3.974.20-5.40 10 6/sMYmixhgenwe70.212.0-16.0 g/tEInzvufozke91.2 36.0-48.0 %Mean Corpuscular Kurbcj34.181.0-99.0 fLMean Corpuscular Hemoglobin 28.226.7-34.0 pgMean Corpuscular HGB Conc32.729.9-35.2 g/dLRed Cell Distribution Width13.511.0-15.0 %Platelet Tzzkq269477-640 10 3/uLMean Platelet Fdzljf62.59.5- 13.5 fLPerforming Lab:see noteML - [facility] LBManual Differential Reviewed date:07/14/2024 05:56:16 PM Interpretation: Performing Lab: Notes/Report: [facility] ,Segmented Neutrophils % Lpedze84.043.0-75.0Lymphocytes Percent Zbhwja91.020.5- 60.0 %Monocytes Percent Manual4.01.7-12.0 %Eosinophils Percent Manual0.00.9-7.0 %Basophils Percent Manual1.00.2-2.0 %Segmented Neut Absolute Mnpwaq83.091.4-6.5 10 3/uLLymphocytes Absolute Manual3.181.20-3.80 10 3/uLMonocytes Absolute Manual 0.980.30-0.80 10 3/uLEosinophils Absolute Manual0.000.00-0.70 10 3/uLBasophils Abs Manual0.240.00-0.10 10 3/uLPerforming Lab:see noteML - [facility] LBBox Test Reviewed date:07/14/2024 05:56:16 PM Interpretation: Performing Lab: Notes/Report: RADHA NOVAK- TO [facility] ,BOX Test Sent OutKLTWO TWELVE MEDICAL CENTERCHLOE BETKEBOX Test Reference LabFIRELANDSBOX Test Date Sent07/13/24BOX Test ResultSEE SCANNED REPORTPerforming Lab:see [facility] LBCBC AUTO DIFF Reviewed date:12/27/2024 09:21:45 PM Interpretation: Performing Lab: Notes/Report: [facility] ,White Blood Count8.34.0-11.0 10 3/uLRed Blood Count4.594.20-5.40 10 6/uL Pyxnydgacu66.312.0-16.0 g/gQUdesallony52.736.0-48.0 %Mean Corpuscular Efsknl77.3 81.0-99.0 fLMean Corpuscular Vsfrxcspvo00.026.7-34.0 pgMean Corpuscular HGB Conc 34.429.9-35.2 g/dLRed Cell Distribution Width13.011.0-15.0 %Platelet Sllsx169 150-450 10 3/uLMean Platelet Ifkgak54.39.5-13.5 fLNeutrophils Percent Auto67.2 43.0-75.0 %Lymphocytes Percent Auto25.820.5-60.0 %Monocytes Percent Auto5.71.7- 12.0 %Eosinophils Percent Auto0.40.9-7.0 %Basophils Percent Auto0.70.2-2.0 % Immature Granulocytes Pct Auto0.20.0-0.5 %Neutrophils Absolute Auto5.61.4-6.5 10 3/uLLymphocytes Absolute Auto2.11.2-3.8 10 3/uLMonocytes Absolute Auto0.50.3-0.8 10 3/uLEosinophils Absolute Auto0.00.0-0.7 10 3/uLBasophils Absolute Auto0.10.0- 0.1 10 3/uLImmature Granulocytes Abs Auto0.020.00-0.03 10 3/uLPerforming Lab:see noteML - [facility] LBSTREPT SCREEN Reviewed date:12/27/2024 09:21:45 PM Interpretation: Performing Lab: Notes/Report: [facility] ,Strep A Antigen ScreenNegativePerforming Lab:see noteML - [facility] LBECG 12 lead Reviewed date:12/28/2024 12:51:24 PM Interpretation: Performing Lab: Notes/Report: Source Facility: [place] [address] [place] [address] Electrocardiograph Report Signed Patient: LATHA TSEEL MR#: [id number] : 2000 Acct:[id number] Age/Sex: 24 / F ADM Date: 12/27/24 Loc: ER Attending Dr: Ordering Physician: Agata Ross Date of Service: 12/27/24 Procedure(s): ECG 12 lead Accession Number(s): [id number] cc: [facility] Test Date: 2024-12-27 Pat Name: LATHA STEEL Department: Room: - Gender: Female Jar Capper: : 2000 Requested By: 0923 Order Number: [id number] Melinda MD: ANNA LI M.D. Measurements Intervals [place] Rate: 77 P: 48 NM: 172 QRS: 37 QRSD: 102 T: 49 QT: 356 QTc: 388 Interpretive Statements 1100 Sinus rhythm 2420 RSR (QR) in lead V1/V2, consistent with right ventricular conduction delay 9130 borderline ECG Compared to ECG 10/30/2024 15:07:52 No significant changes Electronically Signed On 12-27-2024 21:45:34 EDT by ANNA LI M.D. Dictated By: ANNA LI Signed By: 12/27/242144 DD/ 48 TD/TT: Asphalt Patcher:CBC AUTO DIFF Reviewed date:03/09/2025 04:44:58 PM Interpretation: Performing Lab: Notes/Report: [facility] ,White Blood Count10.14.0-11.0 10 3/uLRed Blood Count4.594.20-5.40 10 6/uL Ngcyylyrac29.512.0-16.0 g/iVRbtmakxceu77.136.0-48.0 %Mean Corpuscular Yuuooc34.2 81.0-99.0 fLMean Corpuscular Xpkimxrqwe55.426.7-34.0 pgMean Corpuscular HGB Conc 34.529.9-35.2 g/dLRed Cell Distribution Width12.611.0-15.0 %Platelet Csgiy211 150-450 10 3/uLMean Platelet Dviqjh28.29.5-13.5 fLNeutrophils Percent Auto67.7 43.0-75.0 %Lymphocytes Percent Auto26.020.5-60.0 %Monocytes Percent Auto5.01.7- 12.0 %Eosinophils Percent Auto0.50.9-7.0 %Basophils Percent Auto0.60.2-2.0 % Immature Granulocytes Pct Auto0.20.0-0.5 %Neutrophils Absolute Auto6.91.4-6.5 10 3/uLLymphocytes Absolute Auto2.61.2-3.8 10 3/uLMonocytes Absolute Auto0.50.3-0.8 10 3/uLEosinophils Absolute Auto0.10.0-0.7 10 3/uLBasophils Absolute Auto0.10.0- 0.1 10 3/uLImmature Granulocytes Abs Auto0.020.00-0.03 10 3/uLPerforming Lab:see noteML - [facility] LBRUBELLA AB IGG Reviewed date:03/12/2025 11:06:37 AM Interpretation: Performing Lab: Notes/Report: [facility] ,Rubella Antibodies, IgG4.47Immune >0.99 index Non-immune <0.90 Equivocal 0.90 - 0.99 Immune >0.99 Performed at: [address] [id number] Patrol Officer: Samson Ibarra PhD, Phone: [phone] Performing Lab:see note - [facility] LBHCV Antibody RFX to Quant PCR Reviewed date:03/12/2025 11:06:37 AM Interpretation: Performing Lab: Notes/Report: [facility] ,HCV AbNon ReactiveNon ReactiveInterpretation:Comment. Not infected with HCV unless early or acute infection is suspected (which may be delayed in an immunocompromised individual), or other evidence exists to indicate HCV infection. Performed at: [address] [id number] Patrol Officer: Samson Ibarra PhD, Phone: [phone] Performing Lab:see note - [facility] LBHBsAg Screen Reviewed date:03/12/2025 11:06:37 AM Interpretation: Performing Lab: Notes/Report: [facility] ,HBsAg ScreenNegativeNegative Performed at: [address] [id number] Patrol Officer: Samson Ibarra PhD, Phone: [phone] Performing Lab:see noteLC - [facility] LBUrine Culture, Routine Reviewed date:03/13/2025 09:39:15 AM Interpretation: Performing Lab: Notes/Report: [facility] ,Urine Culture, RoutineSee Below For Report Urine Culture, Routine Urine Culture, RoutineNo growth Urine Culture, Routine Urine Culture, RoutinePerformed at: [facility] Urine Culture, Routine Urine Culture, [address] [place] [id number] Urine Culture, Routine Urine Culture, RoutineLab Director: Samson Ibarra PhD, Phone: [phone] Urine Culture, Routine Performing Lab:see note LC - [facility] LB SEE REPORT - Senior Software Analyst Id information not found for OBX-specific record producer legend [place] Reviewed date:03/09/2025 05:19:20 PM Interpretation: Performing Lab: Notes/Report: [facility] ,BOX Test Sent OutUNITYBOX Test Reference LabUNITYBOX Test Date Sent03/09/2025 Performing Lab:see noteML - [facility] LBCBC AUTO DIFF Reviewed date:04/15/2025 12:47:02 PM Interpretation: Performing Lab: Notes/Report: [facility] ,White Blood Count11.54.0-11.0 10 3/uLRed Blood Count4.294.20-5.40 10 6/uL Rzpupqweva09.812.0-16.0 g/gOGgisnemovk76.536.0-48.0 %Mean Corpuscular Smbgmz53.1 81.0-99.0 fLMean Corpuscular Rawpmonwng62.826.7-34.0 pgMean Corpuscular HGB Conc 35.129.9-35.2 g/dLRed Cell Distribution Width12.711.0-15.0 %Platelet Pkfap233 150-450 10 3/uLMean Platelet Msgsnf62.29.5-13.5 fLNeutrophils Percent Auto58.0 43.0-75.0 %Lymphocytes Percent Auto34.820.5-60.0 %Monocytes Percent Auto5.91.7- 12.0 %Eosinophils Percent Auto0.60.9-7.0 %Basophils Percent Auto0.40.2-2.0 % Immature Granulocytes Pct Auto0.30.0-0.5 %Neutrophils Absolute Auto6.71.4-6.5 10 3/uLLymphocytes Absolute Auto4.01.2-3.8 10 3/uLMonocytes Absolute Auto0.70.3-0.8 10 3/uLEosinophils Absolute Auto0.10.0-0.7 10 3/uLBasophils Absolute Auto0.10.0- 0.1 10 3/uLImmature Granulocytes Abs Auto0.030.00-0.03 10 3/uLPerforming Lab:see noteML - [facility] LBPREG QUANT HCG Reviewed date:04/15/2025 12:47:02 PM Interpretation: Performing Lab: Notes/Report: [facility] ,HCG Qvbxcrbjkckx50578 5-50 0.2-1 WEEK 50-500 1-2 WEEKS 100-5,000 2-3 WEEKS 500-10,000 3-4 WEEKS 1,000-50,000 4-5 WEEKS 10,000-100,000 5-6 WEEKS 15,000-200,000 6-8 WEEKS 10,000-100,000 2-3 MONTHS Performing Lab:see noteML - [facility] LBPROF CHEM 8 (BAS METB) Reviewed date:04/15/2025 12:47:02 PM Interpretation: Performing Lab: Notes/Report: [facility] ,Bstrzn041049-752 mmol/LPotassium3.23.5-5.1 mmol/APgvyevlc98705-583 mmol/LCarbon Uqbyiyk74.321.0-32.0 mmol/LAnion Gap14.5Zdrqxci5710-786 mg/dLBlood Urea Nitrogen 7.07.0-18.0 mg/dLCreatinine0.660.55-1.02 mg/dLEstimated GFR ( Akua>60 >=60 mL/min/1.73m 2Estimated GFR (Non- Deborah>60>=60 mL/min/1.73m 2BUN Creatinine Ratio10.2Jjtmpgs1.08.5-10.1 mg/dLPerforming Lab:see noteML - [facility] LBUA Micro, reflex to culture Reviewed date:04/15/2025 12:47:02 PM Interpretation: Performing Lab: Notes/Report: [facility] ,Color UrineYELLOWYELLOWClarity UrineCLEARCLEARSpecific [place] Urine>=1.030 1.005-1.025pH Urine6.05.0-9.0Protein UrineNEGATIVENEG/TRACE mg/dLGlucose Urine UANEGATIVENEGATIVE mg/dLBilirubin UrineNEGATIVENEGATIVEKetones UrineNEGATIVE NEGATIVE mg/dLBlood UrineNEGATIVENEGATIVENitrite UrineNEGATIVENEGATIVE Urobilinogen Urine0.20.2-1.0 EU/dLLeukocyte Esterase UrineNEGATIVENEGATIVEWBC Urine2-5NONE SEEN #/HPFRBC Urine0-20-2 #/HPFBacteria UrineSMALLNONE SEEN #/HPF Mucus UrineLARGENONE SEENSquamous Epithelial Cell UrineFEWNONE/RARE #/LPF Crystals Seen?None SeenNone Seen #/HPFCast Seen?NONE SEENNONE SEEN #/LPFUrine Culture IndicatedYES-[facility]Performing Lab:see noteML - [facility] LB Urine Culture - [facility] [place] Reviewed date:04/17/2025 06:45:50 PM Interpretation: Performing Lab: Notes/Report: [facility] ,Urine Culture - [facility]ee Below For Report Urine Culture - [facility] [place] No Growth 2 Days Urine Culture - FR Urine Culture - FR No Growth 2 Days Urine [facility] - [facility]esting [facility] Urine Culture - [facility] [place] No Growth 2 Days Urine Culture - [id number] [place] [address] Urine Culture - [facility] [place] No Growth 2 Days Performing Lab:see noteML - [facility] LBCBC AUTO DIFF Reviewed date:04/26/2025 08:31:52 AM Interpretation: Performing Lab: Notes/Report: [facility] ,White Blood Count9.04.0-11.0 10 3/uLRed Blood Count4.114.20-5.40 10 6/uL Ukfmsqlowg84.512.0-16.0 g/bZRkfycyghcw01.336.0-48.0 %Mean Corpuscular Xqzgdc28.9 81.0-99.0 fLMean Corpuscular Owgbluwpgo93.426.7-34.0 pgMean Corpuscular HGB Conc 35.429.9-35.2 g/dLRed Cell Distribution Width12.611.0-15.0 %Platelet Isnno363 150-450 10 3/uLMean Platelet Shdxqp45.69.5-13.5 fLNeutrophils Percent Auto70.8 43.0-75.0 %Lymphocytes Percent Auto23.220.5-60.0 %Monocytes Percent Auto4.81.7- 12.0 %Eosinophils Percent Auto0.40.9-7.0 %Basophils Percent Auto0.60.2-2.0 % Immature Granulocytes Pct Auto0.20.0-0.5 %Neutrophils Absolute Auto6.41.4-6.5 10 3/uLLymphocytes Absolute Auto2.11.2-3.8 10 3/uLMonocytes Absolute Auto0.40.3-0.8 10 3/uLEosinophils Absolute Auto0.00.0-0.7 10 3/uLBasophils Absolute Auto0.10.0- 0.1 10 3/uLImmature Granulocytes Abs Auto0.020.00-0.03 10 3/uLPerforming Lab:see noteML - [facility] LBPREG QUANT HCG Reviewed date:04/26/2025 08:31:52 AM Interpretation: Performing Lab: Notes/Report: [facility] ,HCG Xrorqtxjsxve38747 5-50 0.2-1 WEEK 50-500 1-2 WEEKS 100-5,000 2-3 WEEKS 500-10,000 3-4 WEEKS 1,000-50,000 4-5 WEEKS 10,000-100,000 5-6 WEEKS 15,000-200,000 6-8 WEEKS 10,000-100,000 2-3 MONTHS Performing Lab:see note - [facility] LBPROF CHEM 8 (BAS METB) Reviewed date:04/26/2025 08:31:52 AM Interpretation: Performing Lab: Notes/Report: [facility] ,Rhatgw316734-823 mmol/LPotassium3.63.5-5.1 mmol/AYxfnvswc36355-570 mmol/LCarbon Sxvxgdj34.421.0-32.0 mmol/LAnion Gap14.0Trtebyu8948-789 mg/dLBlood Urea Nitrogen 7.07.0-18.0 mg/dLCreatinine0.520.55-1.02 mg/dLEstimated GFR ( [place]>60 >=60 mL/min/1.73m 2Estimated GFR (Non- Deborah>60>=60 mL/min/1.73m 2BUN Creatinine Ratio13.1Zbpezrb0.88.5-10.1 mg/dLPerforming Lab:see noteML - [facility] LBUS OB >= 14 weeks Fetus Reviewed date:04/26/2025 08:52:44 AM Interpretation: Performing Lab: Notes/Report: Source Facility: [facility]-[address] [place] [address] [place] [address] Ultrasound Report Signed Patient: LATHA STEEL MR#: [id number] : 2000 Acct:[id number] Age/Sex: 25 / F ADM Date: 04/26/25 Loc: ER Attending Dr: Ordering Physician: Korey Lovell Date of Service: 04/26/25 Procedure(s): US OB >= 14 weeks Fetus Accession Number(s): [id number] cc: Jesus Tsang M.D.; Korey Lovell [place] [address] Patient Name: LATHA STEEL MRN: TBH:[id number] date: 2000 Sex: F Assigned Patient Location: ER Current Patient Location: ER Accession/Order Number: [id number] Exam Date: 04/26/2025 07:07 Report Date: 04/26/2025 [...] Rucker M.D. 04/26/2025 8:37 AM Dictation Location: [place] [address] Electronically authenticated by: [id number] Y Date: 04/26/2025 08:37 Dictated By: Chelsey Rucker M.D. Signed By: 04/26/25839 DD/ 6 TD/TT: Asphalt Patcher:IGRasheed,Aptima HPV,Age Gdln Reviewed date:05/12/2025 03:25:38 PM Interpretation: Performing Lab: Notes/Report: SPATULA-ALONE ENDOCERVIX [facility] ,Age Gdln ACOG TestingNote. TESTS RESULT FLAG UNITS REF RANGE LAB Clinician Provided Cytology Information Source.............Endocervix Other.............. No. of containers..01 ThinPrep Vial Age Algo ACOG Nidia... FLAG LEGEND: L-Low Normal,H-High Normal,LL-Alert Low,HH-Alert High <-Panic Low,>-Panic High,A-Abnormal,AA-Critical Abnormal Performed at: 01 =[address] [facility] [place] [address] Antonieta Clifton MD, IGP, rfx Aptima HPV ASCUNote. TESTS RESULT FLAG UNITS REF RANGE LAB DIAGNOSIS: 02 NEGATIVE FOR INTRAEPITHELIAL LESION OR MALIGNANCY. Specimen adequacy: 02 Satisfactory for evaluation. Endocervical and/or squamous metaplastic cells (endocervical component) are present. Performed by: 02 Christiana Muñoz Stone Cutter ([facility]) . 02 Note: Note 02 The Pap smear is a screening test designed to aid in the detection of premalignant and malignant conditions of the uterine cervix. It is not a diagnostic procedure and should not be used as the sole means of detecting cervical cancer. Both false-positive and false-negative reports do occur. Test Methodology: Note 02 This liquid based ThinPrep(R) pap test was interpreted using the Xsigo(R) [employer](TM) Cervical Algorithm whole slide imaging system. . 02 The HPV DNA reflex criteria were not met with this specimen result therefore, no HPV testing was performed. FLAG LEGEND: L-Low Normal,H-High Normal,LL-Alert Low,HH-Alert High <-Panic Low,>-Panic High,A-Abnormal,AA-Critical Abnormal Performed at: [address] [place] [address] Antonieta Clifton MD, Performed at: =G - [facility] [address] [id number] Patrol Officer: Antonieta Clifton MD, Phone: [phone] Performed at: - [address] [id number] Patrol Officer: Antonieta Clifton MD, Phone: [phone] Performing Lab:see noteLC - [facility] LBType and Screen Reviewed date:04/26/2025 08:31:52 AM Interpretation: Performing Lab: Notes/Report: [facility] ,Blood TypeO PositiveAntibody ScreenNEGATIVEChlamydia/GC Amplification Reviewed date:04/17/2025 09:01:41 PM Interpretation: Performing Lab: Notes/Report: vaginal [facility] ,Chlamydia trachomatis, NAANegativeNegativeNeisseria gonorrhoeae, NAANegative Negative Performed at: [address] [place] [id number] Patrol Officer: Antonieta Clifton MD, Phone: [phone] Performing Lab:[facility] LBRapid Plasma Reagin, Quant Reviewed date:03/12/2025 11:06:37 [...] utilized, such as Treponema pallidum (Syphilis) Screening [place] (128954) or Rapid Plasma Reagin (RPR) Test With Reflex to Quantitative RPR and Confirmatory Treponema pallidum Antibodies (136732). Performed at: [address] [id number] Patrol Officer: Samson Ibarra PhD, Phone: [phone] Performing Lab:[facility] LBHIV Ab/p24 Ag with Reflex Reviewed date:03/12/2025 11:06:37 AM Interpretation: Performing Lab: Notes/Report: [facility] ,HIV Ab/p24 Ag ScreenNon ReactiveNon Reactive HIV-1/HIV-2 antibodies and HIV-1 p24 antigen were NOT detected. There is no laboratory evidence of HIV infection. HIV Negative Performed at: [address] [id number] Patrol Officer: Samson Ibarra PhD, Phone: [phone] Performing Lab:[facility] LBType and Screen Reviewed date:03/10/2025 08:32:58 AM Interpretation: Performing Lab: Notes/Report: [facility] ,Blood TypeO PositiveAntibody ScreenNEGATIVEGLYCOHEMOGLOBIN A1C Reviewed date:03/10/2025 08:32:58 AM Interpretation: Performing Lab: Notes/Report: [facility] ,Glycohemoglobin A1C4.84.5-6.2 % ADA RECOMMENDED LIMIT 4.0 - 6.0 ADA THERAPEUTIC TARGET < 7.0 ACTION SUGGESTED > 7.0 Estimated Average Mpcmxex14Svvajmowxz Lab:see note - [facility] LB DRUG SCREEN RAPID (URINE) Reviewed date:03/10/2025 08:32:58 AM Interpretation: Performing Lab: Notes/Report: [facility] ,Cannabinoid Screen UrineNEGATIVENEGATIVEPhencyclidine Screen UrineNEGATIVE NEGATIVECocaine Screen [...] Antidepressants): 300 ng/mL Performing Lab:see noteML - [facility] LBPREG QUANT HCG Reviewed date:02/02/2025 05:11:57 PM Interpretation: Performing Lab: Notes/Report: [facility] ,HCG Eooxsgpeaufl128 5-50 0.2-1 WEEK 50-500 1-2 WEEKS 100-5,000 2-3 WEEKS 500-10,000 3-4 WEEKS 1,000-50,000 4-5 WEEKS 10,000-100,000 5-6 WEEKS 15,000-200,000 6-8 WEEKS 10,000-100,000 2-3 MONTHS Performing Lab:see noteML - [facility] LBUpper Respiratory Culture Reviewed date:01/01/2025 12:19:59 PM Interpretation: Performing Lab: Notes/Report: [facility] ,Upper Respiratory CultureSee Below For Report Upper Respiratory Culture Upper Respiratory CultureRoutine respiratory hubert Upper Respiratory Culture Upper Respiratory CulturePerformed at: CB - [facility] Upper Respiratory Culture Upper Respiratory [address] [place], [place] [id number] Upper Respiratory Culture Upper Respiratory CultureLab Director: Samson Ibarra PhD, Phone: [phone] Upper Respiratory Culture Performing Lab:see note LC - [facility] LB SEE REPORT - Senior Software Analyst Id information not found for OBX-specific record producer legend TSH W/ REFLEX FT4 Reviewed date:12/27/2024 09:21:45 PM Interpretation: Performing Lab: Notes/Report: [facility] ,TSH W/ REFLEX FT42.0030.358-3.740 uIU/mLPerforming Lab:see noteML - [facility] LBTSH Reviewed date:12/27/2024 09:21:45 PM Interpretation: Performing Lab: Notes/Report: [facility] ,Thyroid Stimulating Hormone2.0030.358-3.740 uIU/mLPerforming Lab:see noteML - [facility] LBPROF 14(COMP METB) Reviewed date:12/27/2024 09:21:45 PM Interpretation: Performing Lab: Notes/Report: [facility] ,Kpwpiz717365-537 mmol/LPotassium4.03.5-5.1 mmol/GXsmquyou96078-290 mmol/LCarbon Kuzfpfr10.721.0-32.0 mmol/LAnion Gap15.5Lnyccnz9262-281 mg/dLBlood Urea Nitrogen 14.07.0-18.0 mg/dLCreatinine0.810.55-1.02 mg/dLEstimated GFR ( Akua>60 >=60 mL/min/1.73m 2Estimated GFR (Non- Deborah>60>=60 mL/min/1.73m 2BUN Creatinine Ratio17.8Eqzztqn4.68.5-10.1 mg/dLBilirubin Total0.30.2-1.0 mg/dL Aspartate Amino Hyulzniwefu4586-67 U/LAlanine Vgbwxxnkhxkbegqm8193-33 U/L Alkaline Xfjzlivbyjj1508-950 U/LTotal Protein7.86.4-8.2 g/dLAlbumin Level4.03.4- 5.0 g/dLGlobulin3.8Albumin Globulin Ratio1.1Performing Lab:see noteML - [facility] LBECG 12 lead Reviewed date:10/31/2024 08:27:43 PM Interpretation: Performing Lab: Notes/Report: Source Facility: [facility]-[address] [place] [address] [place] [address] Electrocardiograph Report Signed Patient: LATHA STEEL MR#: [id number] : 2000 Acct:[id number] Age/Sex: 24 / F ADM Date: 10/30/24 Loc: ER Attending Dr: Ordering Physician: Memo Lynch Date of Service: 10/30/24 Procedure(s): ECG 12 lead Accession Number(s): [id number] cc: [facility] Test Date: 2024-10-30 Pat Name: LATHA STEEL Department: Room: - Gender: Female Jar Capper: : 2000 Requested By: 0953 Order Number: [id number] Reading MD: ANNA LI M.D. Measurements Intervals [place] Rate: 77 P: 33 NM: 164 QRS: 18 QRSD: 104 T: 41 QT: 382 QTc: 413 Interpretive Statements 1100 Sinus rhythm 2440 Incomplete right bundle branch block 9130 borderline ECG Compared to ECG 10/20/2023 12:22:15 No significant changes Electronically Signed On 10-31-2024 7:36:14 EDT by ANNA LI M.D. Dictated By: ANNA LI Signed By: 10/31/24 0736 DD/ 1507 TD/TT: Asphalt Patcher:ARMANDO [place], reflex to culture Reviewed date:10/30/2024 06:15:52 PM Interpretation: Performing Lab: Notes/Report: [facility] ,Color UrineLT. YELLOWYELLOWClarity UrineCLEARCLEARSpecific [place] Urine1.020 1.005-1.025pH Urine6.05.0-9.0Protein UrineNEGATIVENEG/TRACE mg/dLGlucose Urine UANEGATIVENEGATIVE mg/dLBilirubin UrineNEGATIVENEGATIVEKetones Urine>=80NEGATIVE mg/dLBlood UrineNEGATIVENEGATIVENitrite UrineNEGATIVENEGATIVEUrobilinogen Urine 0.20.2-1.0 EU/dLLeukocyte Esterase UrineNEGATIVENEGATIVEWBC Urine0-2NONE SEEN #/HPFRBC Urine0-20-2 #/HPFBacteria UrineTRACENONE SEEN #/HPFMucus UrineTRACENONE SEENSquamous Epithelial Cell UrineMODERATENONE/RARE #/LPFCrystals Seen?None Seen None Seen #/HPFCast Seen?NONE SEENNONE SEEN #/LPFUrine Culture IndicatedNO Performing Lab:see note - [facility] LBHCG Qualitative* Reviewed date:10/30/2024 04:13:26 PM Interpretation: Performing Lab: Notes/Report: [facility] ,HCG QualitativeNEGATIVENEGATIVEPerforming Lab:see note - [facility] LBPROF 14(COMP METB) Reviewed date:10/30/2024 04:13:26 PM Interpretation: Performing Lab: Notes/Report: [facility] ,[id number] mmol/LPotassium3.23.5-5.1 mmol/XTqfztrau53052-574 mmol/LCarbon Wyvvciw61.021.0-32.0 mmol/LAnion Gap15.0Oqwmipl5686-153 mg/dLBlood Urea Nitrogen 16.07.0-18.0 mg/dLCreatinine0.840.55-1.02 mg/dLEstimated GFR ( [place]>60 >=60 mL/min/1.73m 2Estimated GFR (Non- Deborah>60>=60 mL/min/1.73m 2BUN Creatinine Ratio19.4Dknvtnw4.68.5-10.1 mg/dLBilirubin Total0.40.2-1.0 mg/dL Aspartate Amino Biuoepayupx0442-61 U/LAlanine Zpjzgwmnaekxyurk0661-32 U/L Alkaline Jvsanmhgvpv1910-912 U/LTotal Protein7.86.4-8.2 g/dLAlbumin Level4.53.4- 5.0 g/dLGlobulin3.3Albumin Globulin Ratio1.4Performing Lab:see noteML - [facility] LBLIPASE Reviewed date:10/30/2024 04:13:26 PM Interpretation: Performing Lab: Notes/Report: [facility] ,Rdfyrj55.016.0-77.0 U/LPerforming Lab:see noteML - [facility] LBCBC AUTO DIFF Reviewed date:10/30/2024 03:40:05 PM Interpretation: Performing Lab: Notes/Report: [facility] ,White Blood Count9.54.0-11.0 10 3/uLRed Blood Count4.434.20-5.40 10 6/uL Laxieszidc05.612.0-16.0 g/xWGovdfizmxz61.136.0-48.0 %Mean Corpuscular Xcyflg95.7 81.0-99.0 fLMean Corpuscular Jpnnhwhdxa66.426.7-34.0 pgMean Corpuscular HGB Conc 34.029.9-35.2 g/dLRed Cell Distribution Width12.811.0-15.0 %Platelet Iyvyv185 150-450 10 3/uLMean Platelet Krdyeg10.09.5-13.5 fLNeutrophils Percent Auto55.8 43.0-75.0 %Lymphocytes Percent Auto38.120.5-60.0 %Monocytes Percent Auto5.11.7- 12.0 %Eosinophils Percent Auto0.30.9-7.0 %Basophils Percent Auto0.60.2-2.0 % Immature Granulocytes Pct Auto0.10.0-0.5 %Neutrophils Absolute Auto5.31.4-6.5 10 3/uLLymphocytes Absolute Auto3.61.2-3.8 10 3/uLMonocytes Absolute Auto0.50.3-0.8 10 3/uLEosinophils Absolute Auto0.00.0-0.7 10 3/uLBasophils Absolute Auto0.10.0- 0.1 10 3/uLImmature Granulocytes Abs Auto0.010.00-0.03 10 3/uLPerforming Lab:see noteML - [facility] LBCT head/brain wo con Reviewed date:09/03/2024 02:00:54 PM Interpretation: Performing Lab: Notes/Report: Source Facility: [place] [address] CT Scan Report Signed Patient: LATHA STEEL MR#: [id number] : 2000 Acct:[id number] Age/Sex: 24 / F ADM Date: 09/02/24 Loc: CT Attending Dr: Jesus Tsang M.D. Ordering Physician: Jesus Tsang M.D. Date of Service: 09/02/24 Procedure(s): CT head/brain wo con Accession Number(s): [id number] cc: Jesus Tsang M.D. [place] [address] Patient Name: LATHA STEEL MRN: [id number] date: 2000 Sex: F Assigned Patient Location: CT Current Patient Location: CT Accession/Order Number: [id number] Exam Date: 09/02/2024 08:43 Report Date: 09/02/2024 [...] M.D. Signed By: 09/02/241822 DD/ 19 TD/TT: Asphalt Patcher:SARS-CoV-2 Ag* Reviewed date:08/01/2024 07:51:30 AM Interpretation: Performing Lab: Notes/Report: [facility] ,SARS-CoV-2 AgNEGATIVENEGATIVE This test has not been [...] revoked sooner. Performing Lab:see noteML - [facility] LBProthrombin Time INR Reviewed date:08/01/2024 07:51:30 AM Interpretation: Performing Lab: Notes/Report: [facility] ,Prothrombin Time10.69.0-11.6 secINR1.00 DESIRED INR: 2.0-3.0 CONDITIONS NOT LISTED BELOW 2.5-3.5 FOR PROSTHETIC HEART VALVE REPLACEMENT 2.5-3.5 RECURRENT THROMBOSIS Performing Lab:see noteML - [facility] LBUA RANDOM W or MICROSCOPIC Reviewed date:08/01/2024 07:51:30 AM Interpretation: Performing Lab: Notes/Report: [facility] ,Color UrineLT. YELLOWYELLOWClarity UrineCLEARCLEARSpecific [place] Urine1.025 1.005-1.025pH Urine6.05.0-9.0Protein UrineNEGATIVENEG/TRACE mg/dLGlucose Urine UANEGATIVENEGATIVE mg/dLBilirubin UrineNEGATIVENEGATIVEKetones UrineNEGATIVE NEGATIVE mg/dLBlood UrineNEGATIVENEGATIVENitrite UrineNEGATIVENEGATIVE Urobilinogen Urine0.20.2-1.0 EU/dLLeukocyte Esterase UrineTRACENEGATIVEWBC Urine 2-5NONE SEEN #/HPFRBC Urine0-20-2 #/HPFBacteria UrineNONE SEENNONE SEEN #/HPF Mucus UrineNONE SEENNONE SEENSquamous Epithelial Cell UrineFEWNONE/RARE #/LPF Crystals Seen?None SeenNone Seen #/HPFCast Seen?NONE SEENNONE SEEN #/LPFUrine Culture IndicatedNOPerforming Lab:see noteML - [facility] LBPTT Reviewed date:08/01/2024 07:51:30 AM Interpretation: Performing Lab: Notes/Report: [facility] ,Partial Thromboplastin Time30.122.3-36.2 secPerforming Lab:see noteML - [facility] LBPROF 14(COMP METB) Reviewed date:08/01/2024 07:51:30 AM Interpretation: Performing Lab: Notes/Report: [facility] ,Nforit560180-208 mmol/LPotassium3.73.5-5.1 mmol/FTzsxhgfn16140-800 mmol/LCarbon Rqiaysg82.521.0-32.0 mmol/LAnion Gap13.8Mprxpsu8286-428 mg/dLBlood Urea Nitrogen 23.07.0-18.0 mg/dLCreatinine1.380.55-1.02 mg/dLEstimated GFR ( Ozopjyc24 >=60 mL/min/1.73m 2Estimated GFR (Non- Ame47>=60 mL/min/1.73m 2BUN Creatinine Ratio16.8Vemumwi9.88.5-10.1 mg/dLBilirubin Total0.30.2-1.0 mg/dL Aspartate Amino Xchmcrkueqd4111-22 U/LAlanine Hdcduwikzmnjunpr7978-44 U/L Alkaline Kepjbitbjlv71443-954 U/LTotal Protein7.46.4-8.2 g/dLAlbumin Level3.5 3.4-5.0 g/dLGlobulin3.9Albumin Globulin Ratio0.9Performing Lab:see noteML - [facility] LBINFLUENZA A AND B AG Reviewed date:08/01/2024 07:51:30 AM Interpretation: Performing Lab: Notes/Report: [facility] ,Influenza Virus A AntigenNegative Negative for Flu [...] the test. Performing Lab:see noteML - [facility] LBCBC AUTO DIFF Reviewed date:08/01/2024 07:51:30 AM Interpretation: Performing Lab: Notes/Report: [facility] ,White Blood Count9.44.0-11.0 10 3/uLRed Blood Count4.294.20-5.40 10 6/uL Sujszhyfdc49.112.0-16.0 g/tFStrjjsnatd38.636.0-48.0 %Mean Corpuscular Kxgdjg88.3 81.0-99.0 fLMean Corpuscular Rrfqwmlnbx08.226.7-34.0 pgMean Corpuscular HGB Conc 33.129.9-35.2 g/dLRed Cell Distribution Width12.811.0-15.0 %Platelet Hxcev903 150-450 10 3/uLMean Platelet Mqohyh45.69.5-13.5 fLNeutrophils Percent Auto51.1 43.0-75.0 %Lymphocytes Percent Auto41.420.5-60.0 %Monocytes Percent Auto5.11.7- 12.0 %Eosinophils Percent Auto1.10.9-7.0 %Basophils Percent Auto1.10.2-2.0 % Immature Granulocytes Pct Auto0.20.0-0.5 %Neutrophils Absolute Auto4.81.4-6.5 10 3/uLLymphocytes Absolute Auto3.91.2-3.8 10 3/uLMonocytes Absolute Auto0.50.3-0.8 10 3/uLEosinophils Absolute Auto0.10.0-0.7 10 3/uLBasophils Absolute Auto0.10.0- 0.1 10 3/uLImmature Granulocytes Abs Auto0.020.00-0.03 10 3/uLPerforming Lab:see noteML - [facility] LBType and Screen Reviewed date:07/12/2024 10:03:03 AM Interpretation: Performing Lab: Notes/Report: [facility] ,Blood TypeO PositiveAntibody ScreenNEGATIVECBC no Diff (Hemogram) Reviewed date:07/11/2024 09:27:08 PM Interpretation: Performing Lab: Notes/Report: [facility] ,White Blood Count13.14.0-11.0 10 3/uLRed Blood Count3.774.20-5.40 10 6/uL Kztuqdhldy49.612.0-16.0 g/rOCukoanmjsl24.036.0-48.0 %Mean Corpuscular Epaoif36.9 81.0-99.0 fLMean Corpuscular Gkohsgfpnc00.126.7-34.0 pgMean Corpuscular HGB Conc 33.129.9-35.2 g/dLRed Cell Distribution Width13.311.0-15.0 %Platelet Jxypp360 150-450 10 3/uLMean Platelet Jecpvw74.09.5-13.5 fLPerforming Lab:see noteML - [facility] LBDRUG SCREEN RAPID (URINE) Reviewed date:07/11/2024 09:27:27 PM Interpretation: Performing Lab: Notes/Report: [facility] ,Cannabinoid Screen UrineNEGATIVENEGATIVEPhencyclidine Screen UrineNEGATIVE NEGATIVECocaine Screen [...] 300 ng/mL Performing Lab:see noteML - [facility] LB Reason For Referral Diagnosis 1 Hives (L50.9) Referral Organization [facility] Referring Provider First Name Kentrell Referring Provider Last Name Sharan Referring Provider Speciality [facility] kristy Referred Provider Ruy Pimentel Referred Provider [...] containing alcohol in the past year?Monthly (2 points)Eggwle8CozicumxkbawssSddbmlylLonaxsh Control (Standard) Question Answer Notes Tobacco use: Nonsmoker AUDIT-C (Standard) Question Answer Notes Did you have a drink containing alcohol in the p ast year? 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)ActiveconfirmedProblemLumbar radiculopathy (459818993)Radiculopathy, lumbar region (M54.16)ActiveconfirmedProblemEpistaxis (070217593)Epistaxis (R04.0)ActiveconfirmedProblemHeadache (61213918)Headache (R51)Activeconfirmed ProblemChest pain (73796784)Chest pain (R07.9)ActiveconfirmedProblemFatigue (04076725)Fatigue (R53.83)ActiveconfirmedProblemCervical radiculopathy (47849722)Cervical radiculopathy (M54.12)ActiveconfirmedProblemHypothyroid (93442852)Hypothyroid (E03.9)ActiveconfirmedProblemEczema (65405108)Eczema (L30.9)ActiveconfirmedProblemSyncope (982943573)Syncope (R55)Activeconfirmed ProblemAcute sinusitis (62917613)Acute sinusitis (J01.90)ActiveconfirmedProblem Allergic rhinitis (68203719)Allergic rhinitis (J30.9)ActiveconfirmedProblem Radial styloid tenosynovitis (90036181)De Quervain's tenosynovitis (M65.4)Active confirmedProblemPain in thoracic spine (781422521)Bilateral thoracic back pain (M54.6)ActiveconfirmedProblemSyncope and collapse (525789479)Syncopal episodes (R55)ActiveconfirmedProblemNosebleed (482529080)Nosebleed (R04.0)Activeconfirmed ProblemAcute infective polyneuritis (007844585)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)ActiveconfirmedProblemDerangement of knee (35633686)Internal derangement of knee, right (M23.91)ActiveconfirmedProblemBloody diarrhea (96210729)Bloody diarrhea (R19.7)ActiveconfirmedProblemHyperplasia of tonsils (38054896) Hyperplasia of tonsils (J35.1)ActiveconfirmedProblemMeralgia paresthetica (23964854)Meralgia paresthetica, bilateral lower limbs (G57.13)Activeconfirmed ProblemCyst of meniscus of right knee (646521855804926)Cyst of meniscus of right knee (M23.006)ActiveconfirmedProblemPostural orthostatic tachycardia syndrome (disorder) (917427773)POTS (postural orthostatic tachycardia syndrome) (I49.8) ActiveconfirmedProblemDisease caused by Severe acute respiratory syndrome coronavirus 2 (disorder) (930272430)COVID-19 virus infection (U07.1)Active confirmed Vital Signs Blood pressure diastolic 72 mm Hg 12/16/2024 Lbyrfv15 in12/16/2024lood pressure qvrlliyc340 mm Hg12/16/20242190Yrlrpx668 lbs 12/16/2024BMI27.63 kg/m212/16/2024 Encounters Encounter Location Date Provider Diagnosis [address] [place] [address] 08/01/2024 Kentrell [place] [address] [address] [place] [address] 09/03/2024Doug [place] [address] [place] [address]/Doug [address] [id number]/Doug HoyHeadache R51 and Cervical radiculopathy M54.[address] [id number] HoyGastroenteritis K52.9 and Hives L50.9 Assessments Encounter Date Diagnosis (ICD Code) Assessment Notes Treatment Notes Treatment Clinical Notes Section Notes 08/19/2024 Headache (ICD-10 - R51) 08/19/2024ervical radiculopathy (ICD-10 - M54.12)12/16/2024Gastroenteritis (ICD-10 - K52.9)Get plenty of rest. Stay hydrated by sucking on ice chips or taking small sips of water. You can also try drinking clear soda, clear broths or noncaffeinated sports drinks. Stop eating solid foods for a few hours to let your stomach settle. East back into eating by eating bland, svkv-oe-nhdxmb foods like crackers, toast, gelatin, bananas, rice and chicken. Try to avoid foods/substances including dairy products, caffeine, alcohol, nicotine and fatty or highly seasoned foods. Medications such as ibuprofen or tylenol can make your stomach more upset, so use sparingly if at all. Also avoid shsz-neu-pskcyyr anti-diarrheal medications because it can make it harder for your body to eliminate the virus.12/16/2024Hives (ICD-10 - L50.9) Plan Of Treatment Pending Test Test Name Order Date CMP (COMPLETE METABOLIC PANEL) HEMOGLOBIN A1C (GLYCO) 09/03/2023 IRON, TOTAL 09/03/2023 CBC WITH DIFF (EXP 05/2025) 09/03/2023 VITAMIN D, 25 LEVEL (TOTAL) 09/03/2023 MRI Brain w/wo contrast * 10/21/2023 EEG Awake and Asleep 10/21/2023 CT Brain w/o Contrast 08/19/2024 THYROID PROFILE WITH TSH 12/05/2022 THYROID PANEL (T4/TSH/FREE T3) ECHOCARDIO M/2D COMPLETE 02/16/2023 ECHOCARDIO M/2D COMPLETE 09/03/2023 ECHOCARDIO M/2D COMPLETE 12/05/2022 Insurance Providers Payer Name Payer Address Payer Phone Subscriber Number Group Number Insured Name Patient Relationship to Insured Coverage Start Date Coverage End Date [employer] [address] [place] [address] [id number] Job Keith Child 3 [employer] [place] MED[place] [address] [address] [place] [phone] [id number], MadysonSelf - patient is the [id number] 2024 Medical (General) History Medical History History ICD Code Acne, unspecified L70.9 Radiculopathy, lumbar region M54.16 Other specified dermatitis L30.8 Chondromalacia patellae, right knee M22. 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
--- OUTSIDE RECORDS SUMMARY | 2025-07-10 07:15 | XMS_ITS | Clinical Summary ---
Author Organization [facility] Address [address] [place] [address] Care Team Providers Care Residential Real Estate Sales Manager Name Role Phone Fady Tsang MD Primary Care Provider [phone] Allergies No known active allergies Medications MedicationSigDispense QuantityRefillsLast FilledStart DateEnd DateStatus MV-Min-Fe Fum-FA-DHA ( 1 PO) Take 1 tablet by mouth DailyActive Active Problems ProblemNoted DateDiagnosed DateHx of Guillain-Orlando wljvzneg84/06/2024History of mzrlfixi49/06/2024Hypertrophy of tonsils with hypertrophy of wiuinzhh44/02/2024 Estimated Date of PftzxtzrDxnxfhwnEir14/22/2026ased on Ultrasound, FHR-180 Resolved Problems ProblemNoted DateDiagnosed DateResolved DateHistory of 2019 novel coronavirus disease (COVID-19)/5Acute frontal wqxyyubqd41/02/2024 02/27/2025llergic zinrbsfr395Chronic adenotonsillitis PharyngitisUARS (upper airway resistance syndrome) Encounters DateTypeDepartmentCare RxnlXgpvkblhqvw61/17/2025 9:30 AM ESTRoutine MARIAN D[facility] O[facility] [address] [place] [address] [place] [phone] Agata Ross PA Second trimester ([facility]); 26 weeks gestation of ([facility])07/05/2025amboo flowsheet [facility] [address] [place] [phone] Agata Ross PA 06/07/2025 11:20 AM ESTRoutine NOMCandelario CHAHALN Radha [address] [place] [phone] Pan Martínez, Second trimester ([facility]); 22 weeks gestation of ([facility]); Diabetes mellitus screening; Hx of Guillain-Orlando syndrome; Thyroid disease affecting ([facility])06/07/2025mclean hospitaloo flowsheet [facility] CHAHALN [address] [place] [phone] Pan Martínez DO 05/24/2025Orders Only [facility] [address] [place] [phone] Aimee Burleson LPN 05/23/2025 1:00 PM ESTAncillary Procedure [facility] [address] [place] [address] [place] [phone] Screening, , for anatomic survey ([facility])05/09/2025 8:30 AM EDT Routine MAIRAN [place] [phone] Agata Ross PA 18 weeks gestation of ([facility]); Second trimester ([facility]); Well woman exam with routine gynecological exam; Exposure to STD; Need for maternal serum alpha-protein (MSAFP) screening ([facility]); Screening, , for anatomic survey ([facility])05/09/2025linisync Result Encounter [facility] External Department Unsolicited Agata Ross PA 05/09/2025External Result Encounter [facility] External Department Unsolicited Agata Ross PA 05/09/2025amboo flowsheet [facility] [address] [place] [address] Agata Ross PA 04/10/2025 8:50 AM EDTRoutine [facility] [address] [place] [address] Pan Martínez DO Second trimester ([facility]); 14 weeks gestation of ([facility])04/10/2025amboo flowsheet [facility] [address] [address] Pan Martínez DO 04/10/2025Travelfrom Last 3 Months Family History Medical HistoryRelationNameCommentsNo [...] InformationValueDate RecordedSex Assigned at BirthNot on fileLegal ShcMnciiu35/15/2023 8:32 PM EDT Gender IdentityNot on fileSexual OrientationNot on file Last Filed Vital Signs Vital SignReadingTime TakenCommentsBlood Sjuajzyk399/8207/05/2025 9:34 AM EST Pulse--Temperature--Respiratory Rate--Oxygen Saturation--Inhaled Oxygen Concentration--Sqvmzp70.9 kg (185 lb)07/05/2025 9:34 AM HLMOvkmuy458.6 cm (5' 4 )04/21/2023 3:18 PM EDTBody Mass Index31.7604/21/2023 3:18 PM EDT Plan of Treatment DateTypeDepartmentCare Team (Latest Contact Info)Mbsgywkbvfh21/31/2025 9:20 AM ESTRoutine [facility] [address] [place] [address] Dali Barroso, BITE BLOCK MAKER [address] [place] [address] Procedures Procedure NamePriorityDate/TimeAssociated DiagnosisCommentsUS OB 14+ WEEKS ANATOMY FYDJSamygsi45/04/2025 2:01 PM EST Screening, , for anatomic survey ([facility]) RECURRENT VAGINITIS (HTRX)Csanxfw3505/09/2025 11:15 AM EDT IGP,APTIMA HPV,AGE OBFYHxoqxvk16/21/2025 9:07 AM EDT POCT URINALYSIS NQIWAFLKXaugkzk99/21/2025 8:54 AM EDT 18 weeks gestation of ([facility]) PAP TEST, UQHYFDJJHxiodeo38/21/2025 12:00 AM EDTPOCT URINALYSIS DIPSTICKRoutine 04/10/2025 9:09 AM EDT Second trimester ([facility]) from Last 3 Months Results * US OB 14+ weeks anatomy scan (05/23/2025 2:01 PM EST)Anatomical Region LateralityModalityBodyUltrasoundSpecimen (Source)Anatomical Location / LateralityCollection Method / VolumeCollection TimeReceived Time05/23/2025 2:06 PM EST Impressions 05/23/2025 3:13 PM EST 1. Single, live intrauterine , current sonographic age of 20 weeks and 0 days, with an estimated date of delivery of October 10, 2025. 2. Comparison made with prior examination of March 09, 2025 delivery at that time was October 08, 2025. * ??Estimated Weight (g) by Percentile is based upon an accurate estimated age based onlast menstrual period. ? TRANSCRIBED BY: ? ELECTRONICALLY SIGNED BY: Oli Abbott MD Narrative 05/23/2025 3:13 PM EST FINDINGS: A single, live intrauterine is present with normal cardiac rate of ??140 beats per minute. Normal activity and amniotic fluid volume. ??Morphology is grossly normal. The cervix is long and closed, 4.7 cm. ??The placenta is anterior, inferior aspect 6.0 cm from the closed internal cervical os. ??The current sonographic age is 20 weeks and 0 ??days, based on the following measurements: BPD ? 4.4 cm (19 weeks, 2 days) Head Circumference ? 17.0cm (19 weeks,4 ??days) Abdominal Circumference ?15.1cm (20 weeks, 2 days) Femur Length ?3.4cm (20 weeks, 5 days) Presentation ? Cephalic ? Placenta ? Anterior Weight (g) by Percentile ?49.3% * These measurements result in an estimated date of delivery of ??October 10, 2025. ?? The current estimated weight is ??239 ??grams ( ??pound,12 ?? ounces). ?? Procedure Note Oli bAbott MD - 05/23/2025 FINDINGS: A single, live intrauterine is present with normal cardiacrate of 140 beats per minute. Normal activity and amniotic fluidvolume. Morphology is grossly normal. The cervix is long and closed, 4.7cm. The placenta is anterior, inferior aspect 6.0 cm from the closedinternal cervical os. The current sonographic age is 20 weeks and 0days, based on the following measurements: BPD 4.4 cm (19 weeks, 2 days) Head Circumference 17.0cm (19 weeks,4 days) Abdominal Circumference 15.1cm (20 weeks, 2 days) Femur Length 3.4cm (20 weeks, 5 days) Presentation Cephalic Placenta Anterior Weight (g) by Percentile 49.3% * These measurements result in an estimated date of delivery of September. The current estimated weight is 239 grams ( pound,12ounces). IMPRESSION: 1. Single, live intrauterine , current sonographic age of 20weeks and 0 days, with an estimated date of delivery of October 10, 2025. 2. Comparison made with prior examination of March 09, 2025 delivery atthat time was October 08, 2025. * Estimated Weight (g) by Percentile is based upon an accurateestimated age based on last menstrual period. TRANSCRIBED BY: ELECTRONICALLY SIGNED BY: Oli Abbott MD Authorizing ProviderResult TypeResult StatusAmy Vandana ARANDA OB US PROCEDURES Final Result * RECURRENT VAGINITIS (HTRX) (05/09/2025 11:15 AM EDT)ComponentValueRef Range Test MethodAnalysis TimePerformed AtPathologist SignatureATOPOBIUM VAGINAE0 19.961 - 24.689 ppm05/10/2025 7:50 AM EDTHealthTrackRx at LabPortATOPOBIUM VAGINAENot Hcyrmzcr89.961 - 24.689 ppm05/10/2025 7:50 AM EDTHealthTrackRx at LabPortBVAB 2,3 (BACTERIAL VAGINOSIS ASSOCIATED BACTERIA 2, 3); MOBILUNCUS SPP 019.961 - 24.689 ppm05/10/2025 7:50 AM EDTHealthTrackRx at LabPortBVAB 2,3 (BACTERIAL VAGINOSIS ASSOCIATED BACTERIA 2, 3); MOBILUNCUS SPPNot Detected 19.961 - 24.689 ppm05/10/2025 7:50 AM EDTHealthTrackRx at LabPortCANDIDA ALBICANS, PARAPSILOSIS, XLOEIVOUDH637.000 - 30.347 ppm05/10/2025 7:50 AM EDT [facility] LabPortCANDIDA ALBICANS, PARAPSILOSIS, TROPICALISNot Detected 23.000 - 30.347 ppm05/10/2025 7:50 AM EDTHealthTrackRx at LabPortCANDIDA GBCJCJAT499.000 - 31.618 ppm05/10/2025 7:50 AM EDTHealthTrackRx at [facility] LOLA GLABRATANot Gkqbfimr88.000 - 31.618 ppm05/10/2025 7:50 AM EDT [facility] CenterCANDIDA PLMNCB003.000 - 30.873 ppm05/10/2025 7:50 AM EDTHealthTrackRx at [facility] CenterCANDIDA KRUSEINot Gwkdjnkd56.000 - 30.873 ppm 05/10/2025 7:50 AM EDTHealthTrackRx at [facility] Medical CenterCHLAMYDIA FKHCBOFHVAR508.000 - 31.586 ppm05/10/2025 7:50 AM EDTHealthTrackRx at [facility] CenterCHLAMYDIA TRACHOMATIS Not Mnclxpwq76.000 - 31.586 ppm05/10/2025 7:50 AM EDTHealthTrackRx at [facility] GARDNERELLA WJHOFPSZT088.961 - 24.689 ppm05/10/2025 7:50 AM EDTHealthTrackRx at [facility] CenterGARDNERELLA VAGINALISNot Hukudubo70.961 - 24.689 ppm05/10/2025 7:50 AM EDTHealthTrackRx at [facility] Medical CenterMEGASPHAERA (TYPES 1, 2)019.961 - 24.689 ppm 05/10/2025 7:50 AM EDTHealthTrackRx at [facility] CenterMEGASPHAERA (TYPES 1, 2)Not Anbgbndx02.961 - 24.689 ppm05/10/2025 7:50 AM EDTHealthTrackRx at [facility] NEISSERIA QAKZLKWGOEJ611.000 - 32.587 ppm05/10/2025 7:50 AM EDTHealthTrackRx at [facility] Medical CenterNEISSERIA GONORRHOEAENot Itjfwtjm91.000 - 32.587 ppm05/10/2025 7:50 AM EDTHealthTrackRx at [facility] Medical CenterTRICHOMONAS QOWHYJIEW673.000 - 31.995 ppm 05/10/2025 7:50 AM EDTHealthTrackRx at [facility] Medical CenterTRICHOMONAS VAGINALISNot Kewwnjpx84.000 - 31.995 ppm05/10/2025 7:50 AM EDTHealthTrackRx at [facility] MYCOPLASMA ZAOVCSCUAA338.961 - 24.689 ppm05/10/2025 7:50 AM EDTHealthTrackRx at [facility] Medical CenterMYCOPLASMA GENITALIUMNot Hpekmwuh18.961 - 24.689 ppm05/10/2025 7:50 AM EDTHealthTrackRx at [facility] Medical CenterSpecimen (Source)Anatomical Location / LateralityCollection Method / VolumeCollection TimeReceived TimeTissue 05/09/2025 11:15 AM EDT1 1:32 AM EDT Narrative Authorizing ProviderResult TypeResult StatusAmy [place] PAL BLOOD ORDERABLES Final ResultPerforming OrganizationAddressCity/State/ZIP CodePhone Number [facility] [address] [address] * IGP,APTIMA HPV,AGE GDLN (05/09/2025 9:07 AM EDT)ComponentValueRef RangeTest MethodAnalysis TimePerformed AtPathologist SignatureAGE GDLN ACOG TESTINGNote. TBHComment: ?? TESTS ? RESULT ??FLAG ??UNITS ?REF RANGE ??LAB ?? Clinician Provided Cytology Information ?? Source.............[employer] ?? Other.............. ?? No. of containers..01 ThinPrep Vial Age Algo ACOG Nidia... ??21-29 ? 01 ?FLAG LEGEND: ?L-Low Normal,H-High Normal,LL-Alert Low,HH-Alert High <-Panic Low,>-Panic High,A-Abnormal,AA-Critical Abnormal Performed at: 01 =G ?[facility] ?? [address] [place], [place] ??[phone] ?? Antonieta Clifton MD, IGP, RFX APTIMA HPV ASCUNote.TBHComment: ?? TESTS ? RESULT ??FLAG ??UNITS ?REF RANGE ??LAB DIAGNOSIS: ?02 ?? NEGATIVE FOR INTRAEPITHELIAL LESION OR MALIGNANCY. Specimen adequacy: ?02 ?? Satisfactory for evaluation. ??Endocervical and/or squamous metaplastic ?? cells (endocervical component) are present. Performed by: ? 02 ?? Christiana Muñoz, Technical Consultant ([facility]) . ? 02 Note: ? Note ?02 ?? The Pap smear is a screening test designed to aid in the ?? detection of premalignant and malignant conditions of the ?? uterine cervix. ??It is not a diagnostic procedure and ?? should not be used as the sole means of detecting cervical ?? cancer. ??Both false-positive and false-negative reports do ?? occur. Test Methodology: ? Note ?02 ?? This liquid based ThinPrep(R) pap test was interpreted ?? using the WAYN(R) Katalyst Network(TM) Cervical Algorithm whole ?? slide imaging system. . ? 02 ?? The HPV DNA reflex criteria were not met with this specimen ?? result therefore, no HPV testing was performed. ?FLAG LEGEND: ?L-Low Normal,H-High Normal,LL-Alert Low,HH-Alert High <-Panic Low,>-Panic High,A-Abnormal,AA-Critical Abnormal Performed at: 02 WB ?[facility] ?? [address] [place] ??[phone] ?? Antonieta Clifton MD, Performed at: ??=G - [facility] [address], [place] ??[id number] [place]: Antonieta Clifton MD, Phone: ??[phone] Performed at: ??WB - [facility] [address] [facility], [place] ??[id number] [place]: Antonieta Clifton MD, Phone: ??[phone] Specimen (Source)Anatomical Location / LateralityCollection Method / Volume Collection TimeReceived Time05/09/2025 9:07 AM EDT1 12:54 PM EDT Narrative CLINISY[facility] - 05/12/2025 2:09 PM EDT SPATULA-ALONE ENDOCERVIX Authorizing ProviderResult TypeResult StatusAmy Vandana PAL BLOOD ORDERABLES Final ResultPerforming OrganizationAddressCity/State/ZIP CodePhone Number [facility] * POCT urinalysis dipstick manually resulted (05/09/2025 8:54 AM EDT) Only the most recent of2 resultswithin the time period is included. ComponentValueRef [...] Location / LateralityCollection Method / VolumeCollection TimeReceived CxehWtitq19/21/2025 8:54 AM EDT Narrative Authorizing ProviderResult TypeResult StatusAmy Vandana PAPOINT OF CARE TEST ENTER/EDIT ORDERABLESFinal Result * PAP TEST, EXTERNAL (05/09/2025 12:00 AM EDT) Narrative Authorizing ProviderResult TypeResult StatusFazio Nurse [facility] ObLAB CYTOLOGY ORDERABLESFinal ResultPerforming OrganizationAddressCity/State/ZIP CodePhone Number EXTERNAL LAB from Last 3 Months Insurance Care Teams Team MemberRelationshipSpecialtyStart DateEnd Fady Tsang MD [address] [place] [address] PCP - GeneralFamily Fclycfdr86/3/23
[2025-07-10 08:36] LABS: Hematocrit 32.5 % (36.0-48.0); Hemoglobin 11.2 g/dL (12.0-16.0); Immature Granulocytes Abs Auto 0.05 10^3/uL (0.00-0.03); Immature Granulocytes Pct Auto 0.5 % (0.0-0.5); Lymphocytes Absolute Auto 2.5 10^3/uL (1.2-3.8); Mean Corpuscular HGB Conc 34.5 g/dL (29.9-35.2); Mean Corpuscular Hemoglobin 30.3 pg (26.7-34.0); Mean Corpuscular Volume 87.8 fL (81.0-99.0); Platelet Count 262 10^3/uL (150-450); Red Blood Count 3.70 10^6/uL (4.20-5.40); White Blood Count 10.8 10^3/uL (4.0-11.0)
[2025-07-10 09:03] LABS: Glucose 1 Hour 138 mg/dL (<130); Thyroid Stimulating Hormone 2.158 uIU/mL (0.358-3.740)
== END 2025-07-10 07:11 | disposition home or self-care (01) ==
LOC: LAB 07:12
PROVIDERS: PCP Family Medicine; Visit Provider Obstetrics & Gynecology
DX: O99.280 Endocrine, nutritional and metabolic diseases complicating pregnancy, unspecified trimester (principal); E07.9 Disorder of thyroid, unspecified; Z86.69 Personal history of other diseases of the nervous system and sense organs; Z13.1 Encounter for screening for diabetes mellitus
CPT/HCPCS: 36415; 82950; 84443; 85025